=== PATIENT | male | born 1945 | race Caucasian/White ===

== ENCOUNTER → 2017-12-27 12:23 | Outpatient (CLI) | payer OTHER, SELFPAY ==
[2017-12-10 11:51] VITALS: TEMP 36.5
--- NOTE | 2017-12-27 | DI.MRI.S_ITS ---
PROCEDURE: MR LUMBAR SPINE WO CON INDICATIONS: SPINAL STENOSIS TECHNIQUE: Noncontrast sagittal T1 spin echo and T2 fast echo, coronal T2, sagittal STIR, axial T1 and T2 fast spin echo through the lumbar spine. COMPARISON: [facility], CR, XR LUMBAR SPINE WITH OBLIQUES, 12/13/2017, 14:52. FINDINGS: Image quality: Excellent. Alignment and Curvature: 5 lumbar type vertebral bodies are present by plain film. There is mild rightward curvature of the upper lumbar spine. Mild leftward curvature of the lower lumbar spine. Loss of normal lumbar lordosis. Mild grade 1 anterolisthesis of L2 on L3. Mild grade 1 retrolisthesis of L3 on L4 and L5 on S1. Bone Marrow: Marrow is of normal overall signal. No acute vertebral body compression fractures. L4-S1 fusion has been performed, with the posterior rods and pedicle screws, as well as interbody devices at L4-L5 and L5-S1. Spinal Cord: Conus medullaris terminates at the L1-L2 disc space level. Visualized cord demonstrates normal signal and size. Paraspinous Soft Tissues: No paravertebral masses. L1-L2: Disc desiccation and diffuse disc bulge. Bilateral facet and ligamentum flavum hypertrophy. Epidural lipomatosis. Mild canal stenosis. Mild right foraminal stenosis. No left foraminal stenosis. L2-L3: Disc desiccation and diffuse disc bulge. Bilateral facet and ligamentum hypertrophy. Epidural lipomatosis. Severe canal stenosis. Mild left greater than right foraminal stenosis. L3-L4: Disc desiccation and diffuse disc bulge with superimposed small left paracentral protrusion.. Bilateral facet hypertrophy. Moderate canal stenosis. Mild foraminal stenosis bilaterally. There is impingement upon the left L4 nerve root within the lateral recess. L4-L5: Status post fusion. Right hemilaminotomy has been performed. No significant canal stenosis. Mild bilateral foraminal stenosis. L5-S1: Status post fusion. No significant canal stenosis. Mild foraminal stenosis bilaterally. IMPRESSION: 1. L4-S1 fusion. 2. Severe canal stenosis at L2-L3 secondary to disc and facet disease, as well as ligament flavum hypertrophy and epidural lipomatosis. 3. Moderate canal stenosis and left L4 nerve root impingement at the L3-L4 disc space level secondary to disc and facet disease. Dictated by: Katherine Crawford M.D. on 12/27/2017 at 14:53 Approved by: Katherine Crawford M.D. on 12/27/2017 at 14:58
== END ==
PROVIDERS: PCP Internal Medicine; Visit Provider Physical Medicine & Rehabilitation Pain Medicine
DX: M51.36 Other intervertebral disc degeneration, lumbar region (principal); M47.816 Spondylosis without myelopathy or radiculopathy, lumbar region; M48.061 Spinal stenosis, lumbar region without neurogenic claudication; Z98.1 Arthrodesis status
CPT/HCPCS: 72148

== ENCOUNTER 2018-01-19 11:25 | Emergency (ER) | payer OTHER, SELFPAY ==
[2018-01-19 11:33] VITALS: BP 180/87; PULSE 71; RESP 19; TEMP 36.8; O2SAT 95
--- NOTE | 2018-01-19 11:51 | ED.SOB ---
HPI - SOB/Dyspnea General Chief Complaint: Shortness of Breath/Dyspnea Stated Complaint: HIGH BP, SEVERE ALLERGIES, HEART CONDITION Time Seen by Provider: 01/19/18 11:43 Source: patient Mode of arrival: ambulatory Limitations: no limitations History of Present Illness Patient is a 72-year-old male presenting with shortness of breath. He has a history of asthma and coronary artery disease. He said this morning he woke up from 4 a.m. he had some difficulty breathing felt like it was his asthma. He stated to his blood pressure he has systolic to 100 cc called his primary recommended he come to the ED. He says his breathing is much improved. [place] loss of asthma triggers. He has actually been here multiple times for something similar. He no longer has chest pain. He is now complaining of left knee pain. He had arthroscopic cartilage surgery on his left knee he is past due for his pain medication. He otherwise denies any fevers, cough, shortness of breath with exertion increasing leg pain or swelling MD Complaint: shortness of breath and cough Related Data Home Medications Medication Instructions Recorded Confirmed multivitamin [Multiple Vitamins] 1 tab PO QDAY #0 12/21/16 01/19/18 furosemide 20 mg QDAY PRN #0 08/11/17 01/19/18 aspirin 325 mg PO QDAY #0 11/03/17 01/19/18 fluticasone 1 spray INTRANASAL QDAY #0 11/03/17 01/19/18 loratadine [Claritin Liqui-Gel] 10 mg PO QDAY PRN #0 11/03/17 01/19/18 metoprolol succinate 0.5 tab PO BID #0 11/03/17 01/19/18 acetaminophen-codeine 1 tab PO Q6H PRN 12/10/17 01/19/18 lorazepam 1 mg PO TID PRN 12/10/17 01/19/18 trazodone 4 tab PO QHS 12/10/17 01/19/18 Co Q-10 1 cap PO DAILY 01/19/18 01/19/18 krill oil 1 dose PO DAILY 01/19/18 01/19/18 Previous Rx's Medication Instructions Recorded levalbuterol tartrate [Xopenex HFA] 2 puff INHALATION Q4-6H PRN #15 05/04/18 gram Allergies Allergy/AdvReac Type Severity Reaction Status Date / Time celecoxib [CELECOXIB] Allergy Mild SWELLING Verified 01/19/18 11:33 latex [LATEX] Allergy Mild RASH Verified 01/19/18 11:33 W/EXTENDED EXPOSURE morphine [MORPHINE] Allergy Mild Verified 01/19/18 11:33 Sulfa (Sulfonamide Allergy Mild RASH Verified 01/19/18 11:33 Antibiotics) [SULFA (SULFONAMIDE ANTIBIOTICS)] varenicline [VARENICLINE] Allergy Unknown Verified 01/19/18 11:33 oxycodone [OXYCODONE] AdvReac Severe HX Verified 01/19/18 11:33 ADSICTION, PT WANTS TO AVOID tramadol [TRAMADOL] AdvReac Severe HX Verified 01/19/18 11:33 ADDICTION, DOES NOT WANT TO TAKE buprenorphine [BUPRENORPHINE] AdvReac Mild NAUSEA, Verified 01/19/18 11:33 DIZZINESS Cizkfqw-[id number]-Vxp Reductase AdvReac Mild WEAK Verified 01/19/18 11:33 Inhibitor MUSCLES [[id number] REDUCTASE INHIBITOR] clonidine [CLONIDINE] AdvReac Unknown NO Verified 01/19/18 11:33 ALLERGY, DO NOT USE R/T BETA SVETLANA hyoscyamine [HYOSCYAMINE] AdvReac Unknown PARANOIA, Verified 01/19/18 11:33 LEF JERKING, ANXIETY, NAUSEA W/I MINUTES Review of Systems Review of Systems All systems reviewed & are unremarkable except as noted in HPI and below Constitutional Denies chills, Denies fever(s), Denies lethargy and Denies weakness Cardiovascular Denies chest pain, Denies irregular heart rhythm, Denies lightheadedness, Denies palpitations and Denies orthopnea Respiratory Reports as per HPI Gastrointestinal Gastrointestinal: Denies abdominal pain, Denies change in bowel habits, Denies diarrhea, Denies nausea and Denies vomiting Musculoskeletal Reports as per HPI Integumentary/Breasts Denies pruritus, Denies erythema, Denies rash and Denies wounds Neurologic Denies weakness Endocrine Denies palpitations PFSH Medical History COPD (chronic obstructive pulmonary disease) (Acute) Coronary artery disease (Acute) Exam Initial Vital Signs Initial Vital Signs: Vital Signs Temperature 98.2 F 01/19/18 11:33 Pulse Rate 71 01/19/18 11:33 Respiratory Rate 19 01/19/18 11:33 Blood Pressure 180/87 H 01/19/18 11:33 Pulse Oximetry 95 01/19/18 11:33 Const General: cooperative and well developed Nutritional Appearance: well nourished Orientation: alert, awake, oriented x3 and not confused HENIN Head: normal to inspection and normocephalic Ears: hearing grossly normal bilaterally Eyes Pupils: PERRL EOM: EOM intact bilaterally Resp Effort & Inspection: normal respiratory effort, able to speak in complete sentences, no respiratory distress and no use of accessory muscles Auscultation: clear to auscultation bilaterally, no rales, no rhonchi and no wheezes Cardio Rate: regular rate Rhythm: regular rhythm Heart Sounds: no click, no gallops, no murmurs and no rubs Pulses: normal peripheral pulses GI Inspection: non-distended Palpation: soft, no hepatosplenomegaly, No guarding, No pulsatile mass and No tender Auscultation: normal bowel sounds Neuro General: alert, oriented x3, gait normal and no focal motor deficits Speech: speech normal Course Orders Ordered: ED Orders 01/19/18 11:43 EKG-12 Lead Stat 01/19/18 12:22 Consult to Respiratory Therapy Evaluate & Treat XR chest 2V Stat EKG-12 Lead Stat 01/19/18 13:10 Complete Blood Count AUTO DIFF Stat Comprehensive Metabolic Panel Stat Troponin with CK Cardiac Panel Stat Discontinued Medications Acetaminophen (Tylenol) 650 mg PO NOW ONE Stop: 01/19/18 12:23 Last Admin: 01/19/18 13:04 Dose: Not Given Albuterol/Ipratropium (Duoneb) 3 ml INH NOW ONE Stop: 01/19/18 12:23 Last Admin: 01/19/18 13:04 Dose: Not Given Vital Signs - 8 hr 01/19/18 11:33 01/19/18 12:00 01/19/18 13:06 Temperature 98.2 F Pulse Rate 71 72 67 Respiratory Rate 19 28 H 18 Blood Pressure 180/87 H Blood Pressure [Left Arm] 158/70 H 161/90 H Pulse Oximetry 95 95 96 MDM - SOB/Dyspnea Lab Data Result diagrams: 01/19/18 13:10 01/19/18 13:10 Lab Results 01/19/18 01/19/18 Range/Units 13:10 13:10 WBC 7.2 (4.5-11.0) X10^3/uL RBC 4.34 L (4.5-5.9) X10^6/uL Hgb 13.7 (13.5-17.5) g/dL Hct 40.0 L (41-53) % MCV 92.1 (80-100) fL MCH 31.6 (26-34) PG MCHC 34.3 (30-36) % RDW 13.4 (11.6-14.8) % Plt Count 196 (150-400) X10^3/uL Neut % (Auto) 67.8 (50-75) % Lymph % (Auto) 18.9 L (25-40) % Cook % (Auto) 11.4 (3-14) % Eos % (Auto) 1.2 L (2-4) % Baso % (Auto) 0.7 (0-2) % Neut # (Auto) 4900 (4494-0749) /uL Sodium 143 (137-145) mmol/L Potassium 3.6 (3.4-5.1) mmol/L Chloride 98 (98-107) mmol/L Carbon Dioxide 31 (22-32) mmol/L BUN 13 (9-20) mg/dL Creatinine 0.80 (0.66-1.25) mg/dL Estimated GFR > 60.0 (>60) mL/min BUN/Creatinine Ratio 16.3 (6-22) Glucose 108 (80-110) mg/dL Calcium 9.3 (8.4-10.2) mg/dL Total Bilirubin 0.8 (0.2-1.3) mg/dL AST 40 (17-59) IU/L ALT 38 (21-72) IU/L Alkaline Phosphatase 62 (38-126) U/L Total Creatine Kinase 177 H (55-170) U/L CK-MB (CK-2) 2.07 (<2.37) ng/mL CK-MB (CK-2) Rel Index 1.2 L (1.5-5.0) % Troponin I < 0.012 (0.01-0.034) ng/mL Total Protein 7.4 (6.3-8.2) g/dL Albumin 4.3 (3.5-5.0) g/dL Globulin 3.1 (1.7-4.1) g/dL Albumin/Globulin Ratio 1.4 (1.0-2.8) Imaging Data Chest x-ray: Radiologist's impression: PROCEDURE: XR CHEST 2V INDICATIONS: 72 year-old male with chest pain and shortness of breath. TECHNIQUE: 2 views of the chest were acquired. COMPARISON: [facility], , XR CHEST 2V, 12/10/2017, 8:13. [facility], , CHEST 1 VIEW, 10/12/2017, 11:42. [facility], , CHEST 2 VIEW, 09/09/2017, 10:48. FINDINGS: Surgical changes and devices: Patient is status post median sternotomy and cervical spine fixation. Left hilar surgical clips are again noted. Lungs and pleura: No pleural effusions or pneumothorax. Lungs are clear. Mediastinum: Mediastinal contours are normal. Heart size is upper normal. Bones and chest wall: No suspicious bony abnormalities. Soft tissues appear unremarkable. IMPRESSION: No acute cardiopulmonary disease. Dictated by: Gideon Rodriguez M.D. on 01/19/2018 at 12:58 ECG Data Attestation: I personally reviewed and interpreted this ECG as follows: Prior ECG tracings: available for review Interpretation: Normal sinus rhythm rate [address] changes similar to previous EKG MDM Narrative Medical decision making narrative: Patient now refusing all albuterol. He is speaking full sentences and appears in no respiratory distress. He says he no longer needs an albuterol treatment. He has been here many times for the same. He is agreeable to blood work. EKG and blood work are within normal limits. He feels better and would like to go home. He is only here because his primary care physician told him to come in his blood pressure is elevated. His blood pressure is no longer elevated and feels better. No sign of end-organ damage. Discharge Plan Departure Patient Disposition: Home, Self-Care Clinical Impression: Atypical chest pain Discharge Date/Time: 01/19/18 13:46 Interventions: ED Discharge Assessment Last Done: 01/19/18 13:44 Instructions: DI for Atypical Chest Pain Activity Restrictions/Additional Instructions: *You have been diagnosed with atypical chest *Continue to take medications as directed *Follow up with your primary care provider in 2-3 days *Return to ER if you should have any new, worsening or concerning symptoms Prescriptions: No Action multivitamin [Multiple Vitamins] 1 EACH tablet 1 tab PO QDAY Qty: 0 RF: 0 furosemide 20 MG tablet 20 mg QDAY PRN (Reason: Edema) Qty: 0 RF: 0 metoprolol succinate 200 MG tablet extended release 24 hr 0.5 tab PO BID Qty: 0 RF: 0 aspirin 325 MG tablet,delayed release (DR/EC) 325 mg PO QDAY Qty: 0 RF: 0 fluticasone 16 GM spray,suspension 1 spray Intranasal QDAY Qty: 0 RF: 0 loratadine [Claritin Liqui-Gel] 10 MG capsule 10 mg PO QDAY PRN (Reason: Allergy Symptoms) Qty: 0 RF: 0 acetaminophen-codeine 300-30 mg tablet 1 tab PO Q6H PRN (Reason: Pain) RF: 0 lorazepam 1 mg tablet 1 mg PO TID PRN (Reason: Anxiety) RF: 0 trazodone 100 mg tablet 4 tab PO QHS RF: 0 levalbuterol tartrate [Xopenex HFA] 45 mcg/actuation HFA aerosol inhaler 2 puff INHALATION Q4-6H PRN (Reason: shortness of breath) Qty: 15 RF: 0 Co Q-10 1 cap PO DAILY RF: 0 krill oil 1 dose PO DAILY RF: 0
[2018-01-19 12:00] VITALS: BP 158/70; PULSE 72; RESP 28; O2SAT 95
--- NOTE | 2018-01-19 12:03 | PC.NURSE ---
PT refuses to sit on stretcher at this time. Sits in chair.
--- NOTE | 2018-01-19 12:22 | DI.RAD.S_ITS ---
PROCEDURE: XR CHEST 2V INDICATIONS: 72 year-old male with chest pain and shortness of breath. TECHNIQUE: 2 views of the chest were acquired. COMPARISON: [facility], , XR CHEST 2V, 12/10/2017, 8:13. [facility], , CHEST 1 VIEW, 10/12/2017, 11:42. [facility], , CHEST 2 VIEW, 09/09/2017, 10:48. FINDINGS: Surgical changes and devices: Patient is status post median sternotomy and cervical spine fixation. Left hilar surgical clips are again noted. Lungs and pleura: No pleural effusions or pneumothorax. Lungs are clear. Mediastinum: Mediastinal contours are normal. Heart size is upper normal. Bones and chest wall: No suspicious bony abnormalities. Soft tissues appear unremarkable. IMPRESSION: No acute cardiopulmonary disease. Dictated by: Gideon Rodriguez M.D. on 01/19/2018 at 12:58 Approved by: Gideon Rodriguez M.D. on 01/19/2018 at 12:59
[2018-01-19 13:06] VITALS: BP 161/90; PULSE 67; RESP 18; O2SAT 96
[2018-01-19 13:14] LABS: Add Manual Diff / Slide Review NO; Basophils Percent Auto 0.7 % (0-2); Eosinophils Percent Auto 1.2 % (2-4); Hemoglobin 13.7 g/dL (13.5-17.5); Lymphocytes Percent Auto 18.9 % (25-40); Mean Corpuscular HGB Conc 34.3 % (30-36); Mean Corpuscular Hemoglobin 31.6 PG (26-34); Mean Corpuscular Volume 92.1 fL (80-100); Monocytes Percent Auto 11.4 % (3-14); Neutrophils Absolute Auto 4900 /uL (3000-5900); Neutrophils Percent Auto 67.8 % (50-75); Platelet Count 196 X10^3/uL (150-400); Red Blood Cell Count 4.34 X10^6/uL (4.5-5.9); Red Cell Distribution Width 13.4 % (11.6-14.8); White Blood Cell Count 7.2 X10^3/uL (4.5-11.0)
[2018-01-19 13:21] LABS: Alanine Aminotransferase 38 IU/L (21-72); Albumin 4.3 g/dL (3.5-5.0); Albumin Globulin Ratio 1.4 (1.0-2.8); Alkaline Phosphatase 62 U/L (38-126); Aspartate Aminotransferase 40 IU/L (17-59); BUN Creatinine Ratio 16.3 (6-22); Bilirubin Total 0.8 mg/dL (0.2-1.3); Blood Urea Nitrogen 13 mg/dL (9-20); Calcium 9.3 mg/dL (8.4-10.2); Carbon Dioxide 31 mmol/L (22-32); Chloride 98 mmol/L (98-107); Creatine Kinase 177 U/L (55-170); Estimated Glomerular Filt Rate > 60.0 mL/min (>60); Globulin 3.1 g/dL (1.7-4.1); Glucose 108 mg/dL (80-110); Potassium 3.6 mmol/L (3.4-5.1); Sodium 143 mmol/L (137-145); Total Protein 7.4 g/dL (6.3-8.2)
[2018-01-19 13:33] LABS: Troponin I < 0.012 ng/mL (0.01-0.034)
[2018-01-19 13:37] LABS: CKMB % Relative Index 1.2 % (1.5-5.0); Creatine Kinase MB 2.07 ng/mL (<2.37); HEMOLYSIS 35 (0-50)
== END 2018-01-19 13:46 | disposition home or self-care (01) ==
PROVIDERS: Emergency Provider Emergency Medicine
DX: R07.89 Other chest pain (principal)
CPT/HCPCS: 71046; 80053; 82550; 82553; 84484; 85025; 93005; 93041; 99283; 99285

== ENCOUNTER 2018-06-23 09:35 | Emergency (ER) | payer OTHER, SELFPAY ==
[2018-06-23 09:40] VITALS: BP 155/75; PULSE 73; RESP 19; TEMP 36.4; O2SAT 96; BMI 29.5
[2018-06-23] MEDS: LEVALBUTEROL 1.25 MG/0.5 ML NEB INH ×2 (09:58→10:13)
--- NOTE | 2018-06-23 09:58 | DI.RAD.S_ITS ---
PROCEDURE: XR CHEST 2V INDICATIONS: short of breath chest pain TECHNIQUE: 2 views of the chest were acquired. COMPARISON: [facility], , XR CHEST 2V, 01/19/2018, 12:25. FINDINGS: Surgical changes and devices: CABG postsurgical changes in spine fixation hardware is stable. Lungs and pleura: No pleural effusions or pneumothorax. Lungs are clear. Mediastinum: Mediastinal contours are normal. Heart size is normal. Bones and chest wall: No suspicious bony abnormalities. Soft tissues appear unremarkable. IMPRESSION: No acute cardiopulmonary disease process. Dictated by: Rubia Garrison MD, PhD on 06/23/2018 at 10:17 Approved by: Rubia Garrison MD, PhD on 06/23/2018 at 10:18
[2018-06-23 09:59] VITALS: PULSE 70; RESP 23; O2SAT 97
--- NOTE | 2018-06-23 10:00 | ED.SOB ---
HPI - SOB/Dyspnea General Chief Complaint: Shortness of Breath/Dyspnea Stated Complaint: WHEZZING , ASTHMA Time Seen by Provider: 06/23/18 09:46 Source: patient Mode of arrival: ambulatory Limitations: no limitations History of Present Illness Patient is a 73-year-old male who presents with shortness of breath and left-sided chest pain. He had an achalasia procedure done at [facility] on June 08. He also has a history of coronary artery disease and asthma. He said last night he woke up coughing quite badly he took his the Xopenex inhaler with spacer it did not help, And he also ran out of it. He coughed up clear sputum. He is is having pain epigastric where the procedure was done. He says is not any worse than it was it has been. He is difficult to get information out of. His is concerned because he was supposed to be on a soft diet but has been eating hamburgers and pizza. He states he cannot take albuterol healing take Xopenex. MD Complaint: shortness of breath Related Data Home Medications Medication Instructions Recorded Confirmed multivitamin [Multiple Vitamins] 1 tab PO QDAY #0 12/21/16 01/19/18 furosemide 20 mg QDAY PRN #0 08/11/17 01/19/18 aspirin 325 mg PO QDAY #0 11/03/17 01/19/18 fluticasone 1 spray INTRANASAL QDAY #0 11/03/17 01/19/18 loratadine [Claritin Liqui-Gel] 10 mg PO QDAY PRN #0 11/03/17 01/19/18 metoprolol succinate 0.5 tab PO BID #0 11/03/17 01/19/18 acetaminophen-codeine 1 tab PO Q6H PRN 12/10/17 01/19/18 lorazepam 1 mg PO TID PRN 12/10/17 01/19/18 trazodone 4 tab PO QHS 12/10/17 01/19/18 Co Q-10 1 cap PO DAILY 01/19/18 01/19/18 krill oil 1 dose PO DAILY 01/19/18 01/19/18 Previous Rx's Medication Instructions Recorded levalbuterol tartrate [Xopenex HFA] 2 puff INHALATION Q4-6H PRN #15 12/10/17 gram levalbuterol tartrate [Xopenex HFA] 1 puff INHALATION Q4-6H PRN #15 06/23/18 gram prednisone 50 mg PO DAILY #4 tab 06/23/18 Allergies Allergy/AdvReac Type Severity Reaction Status Date / Time celecoxib [CELECOXIB] Allergy Mild SWELLING Verified 01/19/18 11:33 latex [LATEX] Allergy Mild RASH Verified 01/19/18 11:33 W/EXTENDED EXPOSURE morphine [MORPHINE] Allergy Mild Verified 01/19/18 11:33 Sulfa (Sulfonamide Allergy Mild RASH Verified 01/19/18 11:33 Antibiotics) [SULFA (SULFONAMIDE ANTIBIOTICS)] varenicline [VARENICLINE] Allergy Unknown Verified 01/19/18 11:33 oxycodone [OXYCODONE] AdvReac Severe HX Verified 01/19/18 11:33 ADSICTION, PT WANTS TO AVOID tramadol [TRAMADOL] AdvReac Severe HX Verified 01/19/18 11:33 ADDICTION, DOES NOT WANT TO TAKE buprenorphine [BUPRENORPHINE] AdvReac Mild NAUSEA, Verified 01/19/18 11:33 DIZZINESS Frqugun-Qjp-Zcc Reductase AdvReac Mild WEAK Verified 01/19/18 11:33 Inhibitor MUSCLES [[id number] REDUCTASE INHIBITOR] clonidine [CLONIDINE] AdvReac Unknown NO Verified 01/19/18 11:33 ALLERGY, DO NOT USE R/T BETA SVETLANA hyoscyamine [HYOSCYAMINE] AdvReac Unknown PARANOIA, Verified 01/19/18 11:33 LEF JERKING, ANXIETY, NAUSEA W/I MINUTES Review of Systems Review of Systems All systems reviewed & are unremarkable except as noted in HPI and below Constitutional Denies chills, Denies fever(s), Denies lethargy and Denies weakness ENT Ears, Nose, Mouth, and Throat: Reports as per HPI Cardiovascular Reports as per HPI and Denies dyspnea on exertion Respiratory Reports as per HPI, Reports cough, Denies dyspnea on exertion and Reports wheezing Gastrointestinal Gastrointestinal: Denies abdominal pain, Denies change in bowel habits, Denies diarrhea, Denies nausea and Denies vomiting Musculoskeletal Denies back pain, Denies muscle weakness, Denies numbness and Denies tingling Integumentary/Breasts Denies pruritus, Denies erythema, Denies rash and Denies wounds Neurologic Denies numbness, Denies tingling and Denies weakness Allergic/Immunologic Reports wheezing PFSH Medical History COPD (chronic obstructive pulmonary disease) (Acute) Coronary artery disease (Acute) Social History Smoking Status: Former smoker Exam Initial Vital Signs Initial Vital Signs: Vital Signs Temperature 97.6 F 06/23/18 09:40 Pulse Rate 73 06/23/18 09:40 Respiratory Rate 19 06/23/18 09:40 Blood Pressure 155/75 H 06/23/18 09:40 Pulse Oximetry 96 06/23/18 09:40 Const General: cooperative and comfortable Orientation: alert, awake and oriented x3 Eyes General: appearance normal, both eyes and all related structures Neck Neck: normal visual inspection and full ROM Chest Chest: normal inspection of the chest Resp Effort & Inspection: normal respiratory effort and able to speak in complete sentences Auscultation: wheezes expiratory wheezes and scattered wheezes Cardio Rhythm: regular rhythm Heart Sounds: S1 normal and S2 normal GI Palpation: soft, No firm, No pulsatile mass, No rigid and tender (Mild epigastric pain) Skin General: no rashes or lesions noted, No jaundice and No petechiae Neuro General: alert, awake, oriented x3 and deep tendon reflexes 2+ bilaterally Gait: normal gait Course Orders Ordered: ED Orders 06/23/18 10:05 B Type Natriuretic Peptide Stat Complete Blood Count AUTO DIFF Stat Comprehensive Metabolic Panel Stat Lipase Stat Magnesium Stat Partial Thromboplastin Time Stat Prothrombin Time INR Stat Troponin & CK Cardiac Panel Stat 06/23/18 11:31 CT abdomen pelvis w con Stat Discontinued Medications Levalbuterol HCl (Xopenex) 1.25 mg INH NOW PRN PRN Reason: Wheezing Stop: 06/26/18 09:55 Last Admin: 06/23/18 10:13 Dose: 1.25 mg Admin: 06/23/18 09:58 Dose: 1.25 mg Methylprednisolone (Solu-Medrol 125 Mg Vial) 125 mg IV NOW ONE Stop: 06/23/18 09:58 Last Admin: 06/23/18 10:19 Dose: 125 mg Vital Signs - 8 hr 06/23/18 12:00 06/23/18 12:13 Pulse Rate 66 66 Respiratory Rate 21 20 Blood Pressure 181/81 H Blood Pressure [Right Arm] 183/83 H Pulse Oximetry 96 95 MDM - SOB/Dyspnea Lab Data Attestation: I reviewed the patient's lab results. Result diagrams: 06/23/18 10:05 06/23/18 10:05 Lab Results 06/23/18 06/23/18 06/23/18 Range/Units 10:05 10:05 10:05 WBC 8.7 (4.5-11.0) X10^3/uL RBC 4.44 L (4.5-5.9) X10^6/uL Hgb 13.7 (13.5-17.5) g/dL Hct 40.5 L (41-53) % MCV 91.2 (80-100) fL MCH 30.8 (26-34) PG MCHC 33.7 (30-36) % RDW 13.9 (11.6-14.8) % Plt Count 241 (150-400) X10^3/uL Neut % (Auto) 67.7 (50-75) % Lymph % (Auto) 15.3 L (25-40) % Hopkins % (Auto) 7.7 (3-14) % Eos % (Auto) 8.2 H (2-4) % Baso % (Auto) 1.1 (0-2) % Neut # (Auto) 5900 (8313-7389) /uL PT 11.5 (10.1-12.7) SECONDS INR 1.1 (0.9-1.3) APTT 29 (26.4-36.2) SECONDS Sodium (137-145) mmol/L Potassium (3.4-5.1) mmol/L Chloride (98-107) mmol/L Carbon Dioxide (22-32) mmol/L BUN (9-20) mg/dL Creatinine (0.66-1.25) mg/dL Estimated GFR (>60) mL/min BUN/Creatinine Ratio (6-22) Glucose (80-110) mg/dL Calcium (8.4-10.2) mg/dL Magnesium Cancelled Total Bilirubin (0.2-1.3) mg/dL AST (17-59) IU/L ALT (21-72) IU/L Alkaline Phosphatase (38-126) U/L Total Creatine Kinase Cancelled CK-MB (CK-2) Cancelled CK-MB (CK-2) Rel Index Cancelled Troponin I Cancelled B-Natriuretic Peptide 145.0 H (<100) Total Protein (6.3-8.2) g/dL Albumin (3.5-5.0) g/dL Globulin (1.7-4.1) g/dL Albumin/Globulin Ratio (1.0-2.8) Lipase (23-300) U/L 06/23/18 06/23/18 Range/Units 10:05 10:05 WBC (4.5-11.0) X10^3/uL RBC (4.5-5.9) X10^6/uL Hgb (13.5-17.5) g/dL Hct (41-53) % MCV (80-100) fL MCH (26-34) PG MCHC (30-36) % RDW (11.6-14.8) % Plt Count (150-400) X10^3/uL Neut % (Auto) (50-75) % Lymph % (Auto) (25-40) % Hopkins % (Auto) (3-14) % Eos % (Auto) (2-4) % Baso % (Auto) (0-2) % Neut # (Auto) (5075-4244) /uL PT (10.1-12.7) SECONDS INR (0.9-1.3) APTT (26.4-36.2) SECONDS Sodium 139 (137-145) mmol/L Potassium 4.4 (3.4-5.1) mmol/L Chloride 100 (98-107) mmol/L Carbon Dioxide 28 (22-32) mmol/L BUN 19 (9-20) mg/dL Creatinine 0.80 (0.66-1.25) mg/dL Estimated GFR > 60.0 (>60) mL/min BUN/Creatinine Ratio 23.8 H (6-22) Glucose 121 H (80-110) mg/dL Calcium 9.1 (8.4-10.2) mg/dL Magnesium 2.1 Total Bilirubin 0.6 (0.2-1.3) mg/dL AST 33 (17-59) IU/L ALT 33 (21-72) IU/L Alkaline Phosphatase 55 (38-126) U/L Total Creatine Kinase 133 CK-MB (CK-2) 3.00 H CK-MB (CK-2) Rel Index 2.3 Troponin I < 0.012 B-Natriuretic Peptide (<100) Total Protein 7.0 (6.3-8.2) g/dL Albumin 4.3 (3.5-5.0) g/dL Globulin 2.7 (1.7-4.1) g/dL Albumin/Globulin Ratio 1.6 (1.0-2.8) Lipase 90 Cancelled (23-300) U/L Imaging Data Chest x-ray: Radiologist's impression: PROCEDURE: XR CHEST 2V INDICATIONS: short of breath chest pain TECHNIQUE: 2 views of the chest were acquired. COMPARISON: [facility], XR CHEST 2V, 01/19/2018, 12:25. FINDINGS: Surgical changes and devices: CABG postsurgical changes in spine fixation hardware is stable. Lungs and pleura: No pleural effusions or pneumothorax. Lungs are clear. Mediastinum: Mediastinal contours are normal. Heart size is normal. Bones and chest wall: No suspicious bony abnormalities. Soft tissues appear unremarkable. IMPRESSION: No acute cardiopulmonary disease process. Dictated by: Rubia Garrison MD, PhD on 06/23/2018 at 10:17 CT scan - abdomen: Radiologist's impression: PROCEDURE: CT ABDOMEN PELVIS W CON INDICATIONS: ab pain 06/08/18 achalasia correction TECHNIQUE: After the administration of intravenous contrast, 5 mm thick sections acquired from the diaphragm to the symphysis. 5 mm coronal and sagittal reformats were acquired. For radiation dose reduction, the following was used: automated exposure control, adjustment of mA and/or kV according to patient size. COMPARISON: [facility], L-SPINE 2-3 VIEWS, 02/04/2015, 14:29. FINDINGS: Image quality: There is streak artifact seen through the pelvis. ABDOMEN: Lung bases: Lung bases are clear. Heart size is normal. Sternotomy wires are seen. There is thickening of the distal esophageal rosenbaum. No free air or abscess collection can be seen. Solid organs: Liver is normal in size and enhancement. Diffuse fatty liver infiltration is noted. Gallbladder has been removed. Biliary system is non dilated. Pancreas enhances normally. Spleen is normal in size and enhancement. No adrenal nodules. Kidneys demonstrate normal size and enhancement, without hydronephrosis. Peritoneum and bowel: Mild to moderate wall thickening can be seen involving the sigmoid colon, with prominent diverticula formation. Mild surrounding inflammatory changes are seen. No free fluid or air. Bowel loops otherwise demonstrate normal wall thickness and caliber. Incidental note is made of a normal-appearing appendix. Nodes and vessels: No retroperitoneal or mesenteric adenopathy by size criteria. Aorta and inferior vena cava are normal in size. Atherosclerotic calcification is noted. Miscellaneous: No ventral hernias. PELVIS: Genitourinary: Bladder wall thickness is normal. Miscellaneous: No inguinal hernias or adenopathy. Right pelvis clips can be seen. Right groin laparoscopic anchors are seen. Bones: No suspicious bony lesions. No vertebral body compression fractures. Lumbosacral fixation hardware is seen. Bilateral hip arthroplasty hardware is seen, with associated streak artifact. S-shaped scoliotic curvature is seen. IMPRESSION: Thickening of the distal esophageal rosenbaum can be seen, which is consistent with the given history. No free air or abscess collection can be seen. Mild to moderate sigmoid diverticulitis. No findings of perforation or abscess can be seen. Incidental note is made of: Prior sternotomy Cholecystectomy Fatty liver infiltration Normal appendix Right groin hernia repair Right pelvic clips Lumbosacral fixation hardware Bilateral hip arthroplasty hardware, with associated streak artifact Dictated by: Arnie Cook M.D. on 06/23/2018 at 10:54 ECG Data Attestation: I personally reviewed and interpreted this ECG as follows: Prior ECG tracings: available for review Interpretation: normal sinus rhythm rate [address] changes OR interval 183 QRS 82 QTC 484, PVC noted. Q-wave noted in lead 3 which is unchanged from previous EKGs. [facility] Narrative Medical decision making narrative: 11:15 a.m. now patient complaining of nausea and abdominal pain. Says that he overall was feeling achy and tired. He did have chest pain and shortness of breath his breathing is better chest pain is better. He is tender in his umbilical area. abdominal CT is negative. He overall is feeling better. His he has no shortness of breath. Possible COPD exacerbation. His EKG chest x-ray and troponin are negative. Discharge Plan Departure Patient Disposition: Home Clinical Impression: Atypical chest pain Discharge Date/Time: 06/23/18 12:14 Interventions: ED Discharge Assessment Last Done: 06/23/18 12:13 Instructions: DI for Atypical Chest Pain Activity Restrictions/Additional Instructions: *You have been diagnosed with atypical chest *What to do: Blood work, chest x-ray abdominal CT are reassuring no abnormality is found. *Continue to take medications as directed: FAX TO [facility] [place] -prednisone 50 mg once a day -Xopenex every 4 hr if needed for shortness of breath *Follow up with your primary care provider in 2-3 days *Return to ER if you should have chest pain, shortness of breath, abdominal pain any new, worsening or concerning symptoms Prescriptions: New prednisone 50 mg tablet 50 mg PO DAILY Qty: 4 RF: 0 levalbuterol tartrate [Xopenex HFA] 45 mcg/actuation HFA aerosol inhaler 1 puff INHALATION Q4-6H PRN (Reason: shortness of breath or wheezing) Qty: 15 RF: 0 No Action multivitamin [Multiple Vitamins] 1 EACH tablet 1 tab PO QDAY Qty: 0 RF: 0 furosemide 20 MG tablet 20 mg QDAY PRN (Reason: Edema) Qty: 0 RF: 0 metoprolol succinate 200 MG tablet extended release 24 hr 0.5 tab PO BID Qty: 0 RF: 0 aspirin 325 MG tablet,delayed release (DR/EC) 325 mg PO QDAY Qty: 0 RF: 0 fluticasone 16 GM spray,suspension 1 spray Intranasal QDAY Qty: 0 RF: 0 loratadine [Claritin Liqui-Gel] 10 MG capsule 10 mg PO QDAY PRN (Reason: Allergy Symptoms) Qty: 0 RF: 0 acetaminophen-codeine 300-30 mg tablet 1 tab PO Q6H PRN (Reason: Pain) RF: 0 lorazepam 1 mg tablet 1 mg PO TID PRN (Reason: Anxiety) RF: 0 trazodone 100 mg tablet 4 tab PO QHS RF: 0 levalbuterol tartrate [Xopenex HFA] 45 mcg/actuation HFA aerosol inhaler 2 puff INHALATION Q4-6H PRN (Reason: shortness of breath) Qty: 15 RF: 0 Co Q-10 1 cap PO DAILY RF: 0 krill oil 1 dose PO DAILY RF: 0
[2018-06-23 10:18] LABS: Add Manual Diff / Slide Review NO; Basophils Percent Auto 1.1 % (0-2); Eosinophils Percent Auto 8.2 % (2-4); Hematocrit 40.5 % (41-53); Hemoglobin 13.7 g/dL (13.5-17.5); Lymphocytes Percent Auto 15.3 % (25-40); Mean Corpuscular HGB Conc 33.7 % (30-36); Mean Corpuscular Hemoglobin 30.8 PG (26-34); Mean Corpuscular Volume 91.2 fL (80-100); Monocytes Percent Auto 7.7 % (3-14); Neutrophils Absolute Auto 5900 /uL (3000-5900); Neutrophils Percent Auto 67.7 % (50-75); Platelet Count 241 X10^3/uL (150-400); Red Blood Cell Count 4.44 X10^6/uL (4.5-5.9); Red Cell Distribution Width 13.9 % (11.6-14.8); White Blood Cell Count 8.7 X10^3/uL (4.5-11.0)
[2018-06-23] MEDS: methylPREDNISolone 125 MG/2 ML VIAL IV (10:19)
[2018-06-23 10:24] LABS: INR 1.1 (0.9-1.3); Prothrombin Time 11.5 SECONDS (10.1-12.7)
[2018-06-23 10:27] LABS: PTT Partial Thromboplastin Tim 29 SECONDS (26.4-36.2)
[2018-06-23 10:33] LABS: Alanine Aminotransferase 33 IU/L (21-72); Albumin 4.3 g/dL (3.5-5.0); Albumin Globulin Ratio 1.6 (1.0-2.8); Alkaline Phosphatase 55 U/L (38-126); Aspartate Aminotransferase 33 IU/L (17-59); BUN Creatinine Ratio 23.8 (6-22); Bilirubin Total 0.6 mg/dL (0.2-1.3); Blood Urea Nitrogen 19 mg/dL (9-20); Calcium 9.1 mg/dL (8.4-10.2); Carbon Dioxide 28 mmol/L (22-32); Chloride 100 mmol/L (98-107); Creatine Kinase 133 U/L (55-170); Estimated Glomerular Filt Rate > 60.0 mL/min (>60); Globulin 2.7 g/dL (1.7-4.1); Glucose 121 mg/dL (80-110); HEMOLYSIS < 15 (0-50); Lipase 90 U/L (23-300); Magnesium 2.1 mg/dL (1.6-2.3); Potassium 4.4 mmol/L (3.4-5.1); Sodium 139 mmol/L (137-145)
[2018-06-23 10:45] LABS: Troponin I < 0.012 ng/mL (0.01-0.034)
[2018-06-23 10:48] LABS: CKMB % Relative Index 2.3 % (1.5-5.0)
--- NOTE | 2018-06-23 11:31 | DI.CT.S_ITS ---
PROCEDURE: CT ABDOMEN PELVIS W CON INDICATIONS: ab pain 06/08/18 achalasia correction TECHNIQUE: After the administration of intravenous contrast, 5 mm thick sections acquired from the diaphragm to the symphysis. 5 mm coronal and sagittal reformats were acquired. For radiation dose reduction, the following was used: automated exposure control, adjustment of mA and/or kV according to patient size. COMPARISON: [facility], , L-SPINE 2-3 VIEWS, 02/04/2015, 14:29. FINDINGS: Image quality: There is streak artifact seen through the pelvis. ABDOMEN: Lung bases: Lung bases are clear. Heart size is normal. Sternotomy wires are seen. There is thickening of the distal esophageal rosenbaum. No free air or abscess collection can be seen. Solid organs: Liver is normal in size and enhancement. Diffuse fatty liver infiltration is noted. Gallbladder has been removed. Biliary system is non dilated. Pancreas enhances normally. Spleen is normal in size and enhancement. No adrenal nodules. Kidneys demonstrate normal size and enhancement, without hydronephrosis. Peritoneum and bowel: Mild to moderate wall thickening can be seen involving the sigmoid colon, with prominent diverticula formation. Mild surrounding inflammatory changes are seen. No free fluid or air. Bowel loops otherwise demonstrate normal wall thickness and caliber. Incidental note is made of a normal-appearing appendix. Nodes and vessels: No retroperitoneal or mesenteric adenopathy by size criteria. Aorta and inferior vena cava are normal in size. Atherosclerotic calcification is noted. Miscellaneous: No ventral hernias. PELVIS: Genitourinary: Bladder wall thickness is normal. Miscellaneous: No inguinal hernias or adenopathy. Right pelvis clips can be seen. Right groin laparoscopic anchors are seen. Bones: No suspicious bony lesions. No vertebral body compression fractures. Lumbosacral fixation hardware is seen. Bilateral hip arthroplasty hardware is seen, with associated streak artifact. S-shaped scoliotic curvature is seen. IMPRESSION: Thickening of the distal esophageal rosenbaum can be seen, which is consistent with the given history. No free air or abscess collection can be seen. Mild to moderate sigmoid diverticulitis. No findings of perforation or abscess can be seen. Incidental note is made of: Prior sternotomy Cholecystectomy Fatty liver infiltration Normal appendix Right groin hernia repair Right pelvic clips Lumbosacral fixation hardware Bilateral hip arthroplasty hardware, with associated streak artifact Dictated by: Arnie Cook M.D. on 06/23/2018 at 10:54 Approved by: Arnie Cook M.D. on 06/23/2018 at 11:00
[2018-06-23 12:00] VITALS: BP 183/83; PULSE 66; RESP 21; O2SAT 96
[2018-06-23 12:13] VITALS: BP 181/81; PULSE 66; RESP 20; O2SAT 95
--- NOTE | 2018-06-25 15:18 | PC.NURSE ---
pt states he's doing well but had to had to crack the prednisone in half cause its hard on me pt did say he is planning on following up with pcp.
== END 2018-06-23 12:14 | disposition home or self-care (01) ==
PROVIDERS: Emergency Provider Emergency Medicine
DX: R07.89 Other chest pain (principal)
CPT/HCPCS: 36591; 71046; 74177; 80053; 82550; 82553; 83690; 83735; 83880; 84484; 85025; 85610; 85730; 93005; 94640; 96374; 99283; 99285; J2930; J7614; Q9967

== ENCOUNTER → 2018-08-24 10:53 | Outpatient (CLI) | payer OTHER, SELFPAY ==
--- NOTE | 2018-08-26 16:16 | PM.PFT.1 ---
Pulmonary Function Test Referral & Results Date Patient Seen: 08/24/18 Requesting provider: Binu Ac Indication: J45.998 Results: The spirometry demonstrates an FVC of 3.32 L which is 69% of predicted. The FEV1 was measured at 2.55 L which is 72% of predicted. The FEV1/FVC ratio was 77 which is 105% of predicted. Following the administration of bronchodilator there was no appreciable change. Lung volumes show an SVC of 3.33 L which is 67% of predicted. The diffusing capacity was measured at 22.79 which is 62% of predicted. No hemoglobin value was provided, so no correction for potential anemia could be made, if appropriate. The maximum voluntary ventilation was [] Interpretation: This study demonstrates mild to moderate obstructive lung disease without evidence of benefit following bronchodilator There is also [id number] restrictive lung disease There is also mild to moderate reduction in diffusing capacity suggesting element of disease at the capillary alveolar level All this together is consistent with a diagnosis of COPD
== END ==
PROVIDERS: Visit Provider Internal Medicine
DX: J45.998 Other asthma (principal)
CPT/HCPCS: 94060; 94726; 94729

== ENCOUNTER 2018-08-29 09:45 | Emergency (ER) | payer OTHER, SELFPAY ==
[2018-08-29 09:45] VITALS: BP 140/71; PULSE 66; RESP 22; TEMP 36.6; O2SAT 95; BMI 31.1
--- NOTE | 2018-08-29 09:55 | DI.RAD.S_ITS ---
PROCEDURE: XR CHEST 2V INDICATIONS: worsening cough, wheezing TECHNIQUE: 2 views of the chest were acquired. COMPARISON: [facility], CT, CT ABDOMEN PELVIS W CON, 06/23/2018, 11:21. [facility], CR, XR CHEST 2V, 01/19/2018, 12:25. [facility], CR, XR CHEST 2V, 06/23/2018, 10:07. FINDINGS: Surgical changes and devices: Postsurgical changes are redemonstrated in the mediastinum and lower cervical spine. Lungs and pleura: No pleural effusions or pneumothorax. No acute consolidation. There are a few linear opacities redemonstrated in the left base compatible with scarring. Mediastinum: Mediastinal contours are normal. Heart size is normal. Bones and chest wall: No suspicious bony abnormalities. Soft tissues appear unremarkable. IMPRESSION: 1. No definite evidence of pneumonia. Dictated by: Chapincito Rodriguez M.D. on 08/29/2018 at 10:35 Approved by: Chapincito Rodriguez M.D. on 08/29/2018 at 10:38
[2018-08-29] MEDS: LEVALBUTEROL 1.25 MG/0.5 ML NEB INH ×2 (10:03→10:42)
[2018-08-29 10:04] VITALS: PULSE 70; RESP 15; O2SAT 97
[2018-08-29 10:30] LABS: Influenza A and B by PCR Rapid Negative (Negative)
[2018-08-29 10:42] VITALS: PULSE 64; RESP 15; O2SAT 94
[2018-08-29 11:03] VITALS: BP 146/67; PULSE 76; RESP 20; O2SAT 95
[2018-08-29 11:30] VITALS: BP 141/59
[2018-08-29] MEDS: DEXAMETHASONE 10 MG/ML VIAL IM (12:18)
[2018-08-29 12:38] VITALS: BP 142/72; PULSE 80; RESP 18; O2SAT 98
--- NOTE | 2019-02-22 15:50 | ED.SOB ---
HPI - SOB/Dyspnea General Chief Complaint: Shortness of Breath/Dyspnea Stated Complaint: X3 WEEKS COUGHING CONGESTION Time Seen by Provider: 08/29/18 10:05 Source: patient Limitations: no limitations History of Present Illness Late entry of patient record: Patient presented to the emergency department complaining of 3 weeks of shortness of breath and congestion, per nursing note. He has a history of COPD and CHF, for which he takes inhaled beta agonists, furosemide, and isosorbide mononitrate. Related Data Home Medications Medication Instructions Recorded Confirmed multivitamin [Multiple Vitamins] 1 tab PO DAILY #0 12/21/16 11/15/18 furosemide 20 mg DAILY PRN #0 08/11/17 11/15/18 aspirin 325 mg PO BEDTIME #0 11/03/17 11/15/18 fluticasone propionate 1 spray INTRANASAL BID #0 11/03/17 11/15/18 loratadine [Claritin Liqui-Gel] 10 mg PO DAILY #0 11/03/17 11/15/18 acetaminophen-codeine 1 tab PO Q4-6H PRN 12/10/17 11/15/18 trazodone 400 tab PO BEDTIME 12/10/17 11/15/18 Co Q-10 2 cap PO DAILY 01/19/18 11/15/18 krill oil 1 cap PO DAILY 01/19/18 11/15/18 levalbuterol HCl 3 ml INHALATION Q6H PRN 10/17/18 11/15/18 metoprolol tartrate 100 mg PO BID 10/17/18 11/15/18 Spiriva Respimat 1 puff INHALATION DIRECTED 11/15/18 11/15/18 Symbicort 1 puff INHALATION DIRECTED 11/15/18 11/15/18 Previous Rx's Medication Instructions Recorded levalbuterol tartrate [Xopenex HFA] 1 puff INHALATION Q4-6H PRN #15 06/23/18 gram isosorbide mononitrate 30 mg PO DAILY #20 tab 01/08/19 Allergies Allergy/AdvReac Type Severity Reaction Status Date / Time celecoxib [CELECOXIB] Allergy Mild SWELLING Verified 01/19/18 11:33 latex [LATEX] Allergy Mild RASH Verified 01/19/18 11:33 W/EXTENDED EXPOSURE morphine [MORPHINE] Allergy Mild Verified 01/19/18 11:33 Sulfa (Sulfonamide Allergy Mild RASH Verified 01/19/18 11:33 Antibiotics) [SULFA (SULFONAMIDE ANTIBIOTICS)] varenicline [VARENICLINE] Allergy Unknown Verified 01/19/18 11:33 oxycodone [OXYCODONE] AdvReac Severe HX Verified 01/19/18 11:33 ADSICTION, PT WANTS TO AVOID tramadol [TRAMADOL] AdvReac Severe HX Verified 01/19/18 11:33 ADDICTION, DOES NOT WANT TO TAKE buprenorphine [BUPRENORPHINE] AdvReac Mild NAUSEA, Verified 01/19/18 11:33 DIZZINESS [id number] Reductase AdvReac Mild WEAK Verified 01/19/18 11:33 Inhibitor MUSCLES [[id number] REDUCTASE INHIBITOR] clonidine [CLONIDINE] AdvReac Unknown NO Verified 01/19/18 11:33 ALLERGY, DO NOT USE R/T BETA SVETLANA hyoscyamine [HYOSCYAMINE] AdvReac Unknown PARANOIA, Verified 01/19/18 11:33 LEF JERKING, ANXIETY, NAUSEA W/I MINUTES Review of Systems Cardiovascular Reports dyspnea Respiratory Reports dyspnea and Reports wheezing Allergic/Immunologic Reports wheezing PFSH Social History Smoking Status: Former smoker alcohol intake: current substance use type: does not use Exam Initial Vital Signs Initial Vital Signs: Vital Signs Temperature 97.8 F 08/29/18 09:45 Pulse Rate 66 08/29/18 09:45 Respiratory Rate 22 08/29/18 09:45 Blood Pressure 140/71 08/29/18 09:45 Pulse Oximetry 95 08/29/18 09:45 Course Course Narrative: Patient received dexamethasone, Xopenex, and Solu-Medrol in the ED, per record. Orders Ordered: Discontinued Medications Dexamethasone (Decadron) 10 mg IM NOW ONE Stop: 08/29/18 12:16 Last Admin: 08/29/18 12:18 Dose: 10 mg Levalbuterol HCl (Xopenex) 1.25 mg INH NOW ONE Stop: 08/29/18 09:55 Last Admin: 08/29/18 10:03 Dose: 1.25 mg Levalbuterol HCl (Xopenex) 1.25 mg INH NOW PRN PRN Reason: Wheezing Last Admin: 08/29/18 10:42 Dose: 1.25 mg Methylprednisolone (Solu-Medrol 125 Mg Vial) 125 mg IV NOW ONE Stop: 08/29/18 11:17 Last Admin: 08/29/18 12:15 Dose: Not Given MDM - SOB/Dyspnea Medical Records Attestation: I reviewed the patient's medical records. Lab Data Attestation: I reviewed the patient's lab results. Lab Results 08/29/18 Range/Units 09:53 Influenza A & B (PCR) Negative (Negative) Imaging Data Chest x-ray: Radiologist's impression: PROCEDURE: XR CHEST 2V INDICATIONS: worsening cough, wheezing TECHNIQUE: 2 views of the chest were acquired. COMPARISON: [facility], CT, CT ABDOMEN PELVIS W CON, 06/23/2018, 11:21. [facility], CR, XR CHEST 2V, 01/19/2018, 12:25. [facility], CR, XR CHEST 2V, 06/23/2018, 10:07. FINDINGS: Surgical changes and devices: Postsurgical changes are redemonstrated in the mediastinum and lower cervical spine. Lungs and pleura: No pleural effusions or pneumothorax. No acute consolidation. There are a few linear opacities redemonstrated in the left base compatible with scarring. Mediastinum: Mediastinal contours are normal. Heart size is normal. Bones and chest wall: No suspicious bony abnormalities. Soft tissues appear unremarkable. IMPRESSION: 1. No definite evidence of pneumonia. Dictated by: Chapincito Rodriguez M.D. on 08/29/2018 at 10:35 Approved by: Chapincito Rodriguez M.D. on 08/29/2018 at 10:38 Discharge Plan Departure Patient Disposition: Home Clinical Impression: COPD exacerbation Discharge Date/Time: 08/29/18 12:41 Interventions: ED Discharge Assessment Last Done: 08/29/18 12:39 Instructions: DI for Chronic Obstructive Pulmonary Disease Activity Restrictions/Additional Instructions: Your chest x-ray looks good. Your pulmonary function tests indicate you most likely have some degree of COPD. You should continue your inhalers, and you may also take the oral steroids, also, to help with your symptoms. Please follow up with your primary doctor for further intervention for your COPD. Prescriptions: No Action multivitamin [Multiple Vitamins] 1 EACH tablet 1 tab PO DAILY Qty: 0 RF: 0 furosemide 20 MG tablet 20 mg DAILY PRN (Reason: Edema) Qty: 0 RF: 0 aspirin 325 MG tablet,delayed release (DR/EC) 325 mg PO BEDTIME Qty: 0 RF: 0 fluticasone propionate 16 GM spray,suspension 1 spray Intranasal BID Qty: 0 RF: 0 loratadine [Claritin Liqui-Gel] 10 MG capsule 10 mg PO DAILY Qty: 0 RF: 0 Spiriva Respimat 1 puff Inhalation DIRECTED RF: 0 Symbicort 1 puff Inhalation DIRECTED RF: 0 acetaminophen-codeine 300-30 mg tablet 1 tab PO Q4-6H PRN (Reason: Pain) RF: 0 trazodone 100 mg tablet 400 tab PO BEDTIME RF: 0 Co Q-10 2 cap PO DAILY RF: 0 krill oil 1 cap PO DAILY RF: 0 levalbuterol tartrate [Xopenex HFA] 45 mcg/actuation HFA aerosol inhaler 1 puff INHALATION Q4-6H PRN (Reason: shortness of breath or wheezing) Qty: 15 RF: 0 metoprolol tartrate 100 mg tablet 100 mg PO BID RF: 0 levalbuterol HCl 1.25 mg/3 mL solution for nebulization 3 ml Inhalation Q6H PRN (Reason: Shortness Of Breath) RF: 0 isosorbide mononitrate 30 mg tablet extended release 24 hr 30 mg PO DAILY Qty: 20 RF: 0
== END 2018-08-29 12:41 | disposition home or self-care (01) ==
PROVIDERS: Emergency Provider Emergency Medicine
DX: J44.1 Chronic obstructive pulmonary disease with (acute) exacerbation (principal)
CPT/HCPCS: 71046; 87400; 93005; 93010; 94640; 96372; 99283; 99284; J1100; J7614

== ENCOUNTER 2018-10-17 10:55 | Emergency (ER) | payer OTHER, SELFPAY ==
[2018-10-17 12:00] VITALS: BP 156/72; PULSE 75; RESP 16; TEMP 36.6; O2SAT 95
--- NOTE | 2018-10-17 12:28 | DI.RAD.S_ITS ---
PROCEDURE: XR CHEST 2V INDICATIONS: sob, h/o COPD, CHF TECHNIQUE: 2 views of the chest were acquired. COMPARISON: [facility], CR, XR CHEST 2V, 08/29/2018, 10:21. FINDINGS: Surgical changes and devices: Sternotomy wires are again seen. Prior fusion of lower cervical spine is again noted. Lungs and pleura: Lungs are clear. No pleural effusions or pneumothorax. Mediastinum: Mediastinal contours are normal. Heart size is enlarged. Bones and chest wall: No suspicious bony abnormalities. Soft tissues appear unremarkable. IMPRESSION: No acute cardio pulmonary pathology. Dictated by: Reji Starr M.D. on 10/17/2018 at 12:50 Approved by: Reji Starr M.D. on 10/17/2018 at 12:50
--- NOTE | 2018-10-17 12:37 | ED.URI ---
HPI - URI/Sore Throat <Brooke Jensen PA-C - Last Filed: 10/17/18 21:56> General Chief Complaint: Upper Respiratory Symptoms Stated Complaint: Pneumonia/edema Time Seen by Provider: 10/17/18 12:27 Source: patient Mode of arrival: ambulatory Limitations: no limitations History of Present Illness HPI Narrative: This 73-year-old male who has a history of COPD comes in due to worsening dyspnea and wheeze. He states that this ?waxes and wanes?. He thinks the got worse when the cold weather started to improve as there is more pollen in the air, and states he has been getting more wheezy and raspy. He this is not necessarily worse with exertion. He states his Xopenex that he uses at home helps temporarily. He is also taking his Claritin and Flonase. He states that for the last few days he has been feeling more weak and tired in general with increased cough, and he noted some brown sputum when normally it would be clear to yellow green. He states that has not had any chills or sweats. He has not had body aches. He has had ongoing intermittent swelling in his legs for which she takes Lasix. He states that this isn't clearly changed. No new pain in his legs. He denies chest pain. He sleeps upright in a chair because he the has achalasia, states this is not related to his breathing. Related Data Home Medications Medication Instructions Recorded Confirmed multivitamin [Multiple Vitamins] 1 tab PO DAILY #0 12/21/16 10/17/18 furosemide 20 mg DAILY PRN #0 08/11/17 10/17/18 aspirin 325 mg PO BEDTIME #0 11/03/17 10/17/18 fluticasone 1 spray INTRANASAL BID #0 11/03/17 10/17/18 loratadine [Claritin Liqui-Gel] 10 mg PO DAILY #0 11/03/17 10/17/18 acetaminophen-codeine 1 tab PO Q6H PRN 12/10/17 10/17/18 trazodone 400 tab PO BEDTIME 12/10/17 10/17/18 Co Q-10 2 cap PO DAILY 01/19/18 10/17/18 krill oil 1 cap PO DAILY 01/19/18 10/17/18 levalbuterol HCl 3 ml INHALATION Q6H PRN 10/17/18 10/17/18 metoprolol tartrate 100 mg PO BID 10/17/18 10/17/18 Previous Rx's Medication Instructions Recorded levalbuterol tartrate [Xopenex HFA] 1 puff INHALATION Q4-6H PRN #15 06/23/18 gram methylprednisolone 32 mg PO DAILY #7 tab 10/17/18 Allergies Allergy/AdvReac Type Severity Reaction Status Date / Time celecoxib [CELECOXIB] Allergy Mild SWELLING Verified 01/19/18 11:33 latex [LATEX] Allergy Mild RASH Verified 01/19/18 11:33 W/EXTENDED EXPOSURE morphine [MORPHINE] Allergy Mild Verified 01/19/18 11:33 Sulfa (Sulfonamide Allergy Mild RASH Verified 01/19/18 11:33 Antibiotics) [SULFA (SULFONAMIDE ANTIBIOTICS)] varenicline [VARENICLINE] Allergy Unknown Verified 01/19/18 11:33 oxycodone [OXYCODONE] AdvReac Severe HX Verified 01/19/18 11:33 ADSICTION, PT WANTS TO AVOID tramadol [TRAMADOL] AdvReac Severe HX Verified 01/19/18 11:33 ADDICTION, DOES NOT WANT TO TAKE buprenorphine [BUPRENORPHINE] AdvReac Mild NAUSEA, Verified 01/19/18 11:33 DIZZINESS Bxkibxh-Yel-Jig Reductase AdvReac Mild WEAK Verified 01/19/18 11:33 Inhibitor MUSCLES [TMFNYES-IKN-AVS REDUCTASE INHIBITOR] clonidine [CLONIDINE] AdvReac Unknown NO Verified 01/19/18 11:33 ALLERGY, DO NOT USE R/T BETA SVETLANA hyoscyamine [HYOSCYAMINE] AdvReac Unknown PARANOIA, Verified 01/19/18 11:33 LEF JERKING, ANXIETY, NAUSEA W/I MINUTES Review of Systems <Brooke Jensen PA-C - Last Filed: 10/17/18 21:56> Review of Systems ROS Unobtainable: All systems reviewed & are unremarkable except as noted in HPI and below PFSH <Brooke Jensen PA-C - Last Filed: 10/17/18 21:56> Medical History Neck pain, chronic (Chronic) Cervical spinal stenosis (Chronic) Achalasia (Chronic) Coronary artery disease (Acute) Atrial fibrillation (Chronic) Hypertension (Chronic) Chronic obstructive pulmonary disease (Chronic 10/23/16) COPD (chronic obstructive pulmonary disease) (Chronic) Coronary artery disease (Chronic) Surgical History History of heart bypass surgery (10/23/16) Family History Mother Stroke Social History Smoking Status: Former smoker Family History Mother Stroke Social History Smoking Status: Former smoker Exam <Brooke Jensen PA-C - Last Filed: 10/17/18 21:56> Narrative Exam Narrative: GENERAL APPEARANCE: Patient sitting comfortably, in no distress. HEENT: PERRL, EOMI, normal oropharynx, TMs intact with normal light reflexes NECK/THYROID: Neck supple, no JVD, no masses. LUNGS: Coarse, congested breath sounds with generalized wheezes and rhonchi, no clear crackles, intermittent cough on exam. Speaks easily in complete sentences HEART: Regular rate and rhythm without murmur, normal S1, S2, no S3 or S4. ABDOMEN: Soft, NT, ND, + BS x 4 quadrants EXTREMITIES: Mild symmetric pitting bilaterally. No calf tenderness NEUROLOGIC: Alert and oriented, normal speech, gait and coordination. Initial Vital Signs Initial Vital Signs: Vital Signs Temperature 98 F 10/17/18 12:00 Pulse Rate 75 10/17/18 12:00 Respiratory Rate 16 10/17/18 12:00 Blood Pressure 156/72 H 10/17/18 12:00 Pulse Oximetry 95 10/17/18 12:00 <Lorena John DO - Last Filed: 10/18/18 08:12> Initial Vital Signs Initial Vital Signs: Vital Signs Temperature 98 F 10/17/18 12:00 Pulse Rate 75 10/17/18 12:00 Respiratory Rate 16 10/17/18 12:00 Blood Pressure 156/72 H 10/17/18 12:00 Pulse Oximetry 95 10/17/18 12:00 Course <Brooke Jensen PA-C - Last Filed: 10/17/18 21:56> Additional Information: Patient is feeling significantly improved after nebulizer treatments, thinks Xopenex works better for him than DuoNeb. No acute findings on his remaining workup, most likely COPD exacerbation. This typically improves with Solu-Medrol which he will start and follow up with his PCP in the next day or 2. He agreed to return sooner if any acutely worsening symptoms again. Orders Ordered: Discontinued Medications Albuterol/Ipratropium (Duoneb) 3 ml INH NOW ONE Stop: 10/17/18 12:30 Last Admin: 10/17/18 12:56 Dose: Not Given Levalbuterol HCl (Xopenex) 1.25 mg INH NOW ONE Stop: 10/17/18 13:01 Last Admin: 10/17/18 13:10 Dose: 1.25 mg Vital Signs - 8 hr 10/17/18 14:43 Temperature 98.7 F Pulse Rate 69 Respiratory Rate 18 Blood Pressure [Right Arm] 112/55 L Pulse Oximetry 94 <Lorena John DO - Last Filed: 10/18/18 08:12> Orders Ordered: Discontinued Medications Albuterol/Ipratropium (Duoneb) 3 ml INH NOW ONE Stop: 10/17/18 12:30 Last Admin: 10/17/18 12:56 Dose: Not Given Levalbuterol HCl (Xopenex) 1.25 mg INH NOW ONE Stop: 10/17/18 13:01 Last Admin: 10/17/18 13:10 Dose: 1.25 mg Vital Signs - 8 hr 10/17/18 14:43 Temperature 98.7 F Pulse Rate 69 Respiratory Rate 18 Blood Pressure [Right Arm] 112/55 L Pulse Oximetry 94 MDM - URI/Sore Throat <Brooke Jensen PA-C - Last Filed: 10/17/18 21:56> Lab Data Result diagrams: 10/17/18 13:48 10/17/18 13:48 Lab Results 10/17/18 10/17/18 10/17/18 Range/Units 13:48 13:48 Unknown WBC 7.0 (4.5-11.0) X10^3/uL RBC 4.59 (4.5-5.9) X10^6/uL Hgb 14.3 (13.5-17.5) g/dL Hct 41.8 (41-53) % MCV 91.2 (80-100) fL MCH 31.1 (26-34) PG MCHC 34.1 (30-36) % RDW 14.6 (11.6-14.8) % Plt Count 213 (150-400) X10^3/uL Neut % (Auto) 54.3 (50-75) % Lymph % (Auto) 21.2 L (25-40) % Mcdonald % (Auto) 11.6 (3-14) % Eos % (Auto) 11.8 H (2-4) % Baso % (Auto) 1.1 (0-2) % Neut # (Auto) 3800 (2463-2793) /uL Lymph # (Auto) 1500 (1914-4143) /uL Mcdonald # (Auto) 800 (0-900) /uL Eos # (Auto) 800 H (0-450) /uL Baso # (Auto) 100 (0-100) /uL Sodium 137 (137-145) mmol/L Potassium 4.8 (3.4-5.1) mmol/L Chloride 97 L (98-107) mmol/L Carbon Dioxide 31 (22-32) mmol/L BUN 16 (9-20) mg/dL Creatinine 0.90 (0.66-1.25) mg/dL Estimated GFR > 60.0 (>60) mL/min BUN/Creatinine Ratio 17.8 (6-22) Glucose 107 (80-110) mg/dL Calcium 9.1 (8.4-10.2) mg/dL Magnesium 1.9 (1.6-2.3) mg/dL Total Bilirubin 0.8 (0.2-1.3) mg/dL AST 32 (17-59) IU/L ALT 37 (21-72) IU/L Alkaline Phosphatase 66 (38-126) U/L Total Creatine Kinase 149 (55-170) U/L CK-MB (CK-2) 3.08 H (<2.37) ng/mL CK-MB (CK-2) Rel Index 2.1 (1.5-5.0) % Troponin I < 0.012 (0.01-0.034) ng/mL B-Natriuretic Peptide < 100 (<100) Total Protein 7.5 (6.3-8.2) g/dL Albumin 4.3 (3.5-5.0) g/dL Globulin 3.2 (1.7-4.1) g/dL Albumin/Globulin Ratio 1.3 (1.0-2.8) Influenza A & B (PCR) Negative (Negative) Imaging Data Chest x-ray: Radiologist's impression: 17 Brooke Jensen PA-C Find Patient Imaging Karthikeyan Yo 73 M 1945 ACTIVITY DATE EXAM STATUS AUTHOR 10/17/18 12:[address] [address] XRay Report Signed Patient: Karthikeyan Yo DMR#: [id number] : 5Acct:[id number] Age/Sex: 73 / MDate of Service: 10/17/18 Loc: ED Accession Number: [id number] Procedure: XR chest 2V Ordering Provider: Brooke Jensen P.A-C PROCEDURE: XR CHEST 2V INDICATIONS: sob, h/o COPD, CHF TECHNIQUE: 2 views of the chest were acquired. COMPARISON: [facility], , XR CHEST 2V, 08/29/2018, 10:21. FINDINGS: Surgical changes and devices: Sternotomy wires are again seen. Prior fusion of lower cervical spine is again noted. Lungs and pleura: Lungs are clear. No pleural effusions or pneumothorax. Mediastinum: Mediastinal contours are normal. Heart size is enlarged. Bones and chest wall: No suspicious bony abnormalities. Soft tissues appear unremarkable. IMPRESSION: No acute cardio pulmonary pathology. Dictated by: Reji Starr M.D. on 10/17/2018 at 12:50 Approved by: Reji Starr M.D. on 10/17/2018 at 12:50 ECG Data Attestation: I personally reviewed and interpreted this ECG as follows: (The normal sinus rhythm, rate 70, normal axis) <Lorena John DO - Last Filed: 10/18/18 08:12> Lab Data Attestation: I reviewed the patient's lab results. Lab Results 10/17/18 10/17/18 10/17/18 Range/Units 13:48 13:48 Unknown WBC 7.0 (4.5-11.0) X10^3/uL RBC 4.59 (4.5-5.9) X10^6/uL Hgb 14.3 (13.5-17.5) g/dL Hct 41.8 (41-53) % MCV 91.2 (80-100) fL MCH 31.1 (26-34) PG MCHC 34.1 (30-36) % RDW 14.6 (11.6-14.8) % Plt Count 213 (150-400) X10^3/uL Neut % (Auto) 54.3 (50-75) % Lymph % (Auto) 21.2 L (25-40) % Mcdonald % (Auto) 11.6 (3-14) % Eos % (Auto) 11.8 H (2-4) % Baso % (Auto) 1.1 (0-2) % Neut # (Auto) 3800 (8637-9880) /uL Lymph # (Auto) 1500 (5006-2640) /uL Mcdonald # (Auto) 800 (0-900) /uL Eos # (Auto) 800 H (0-450) /uL Baso # (Auto) 100 (0-100) /uL Sodium 137 (137-145) mmol/L Potassium 4.8 (3.4-5.1) mmol/L Chloride 97 L (98-107) mmol/L Carbon Dioxide 31 (22-32) mmol/L BUN 16 (9-20) mg/dL Creatinine 0.90 (0.66-1.25) mg/dL Estimated GFR > 60.0 (>60) mL/min BUN/Creatinine Ratio 17.8 (6-22) Glucose 107 (80-110) mg/dL Calcium 9.1 (8.4-10.2) mg/dL Magnesium 1.9 (1.6-2.3) mg/dL Total Bilirubin 0.8 (0.2-1.3) mg/dL AST 32 (17-59) IU/L ALT 37 (21-72) IU/L Alkaline Phosphatase 66 (38-126) U/L Total Creatine Kinase 149 (55-170) U/L CK-MB (CK-2) 3.08 H (<2.37) ng/mL CK-MB (CK-2) Rel Index 2.1 (1.5-5.0) % Troponin I < 0.012 (0.01-0.034) ng/mL B-Natriuretic Peptide < 100 (<100) Total Protein 7.5 (6.3-8.2) g/dL Albumin 4.3 (3.5-5.0) g/dL Globulin 3.2 (1.7-4.1) g/dL Albumin/Globulin Ratio 1.3 (1.0-2.8) Influenza A & B (PCR) Negative (Negative) ECG Data Attestation: I personally reviewed and interpreted this ECG as follows: Prior ECG tracings: available for review Interpretation: Normal sinus rhythm rate [address] changes no T-wave inversions similar to previous EKGs Discharge Plan Departure Patient Disposition: Home Clinical Impression: COPD exacerbation Discharge Date/Time: 10/17/18 15:05 Interventions: ED Discharge Assessment Last Done: 10/17/18 15:05 Instructions: DI for Chronic Obstructive Pulmonary Disease Activity Restrictions/Additional Instructions: Please return as we talked about if you have any acutely worsening symptoms. Please start on the steroid as soon as you pick it up since it was helpful for you in the past. Continue your nebulizer as often as needed and your inhaler when you are out of the house. Please follow-up with your PCP in a few days to make sure that your improving and determine whether to stop the steroid or continue at a lower dose. You also may wish to try changing your antihistamine to Zyrtec (cetirizine) from Claritin as this might help with your drainage a little bit more. You could start taking it tonight even if you have taken Claritin today. Prescriptions: New methylprednisolone 16 mg tablet 32 mg PO DAILY Qty: 7 RF: 0 No Action multivitamin [Multiple Vitamins] 1 EACH tablet 1 tab PO DAILY Qty: 0 RF: 0 furosemide 20 MG tablet 20 mg DAILY PRN (Reason: Edema) Qty: 0 RF: 0 aspirin 325 MG tablet,delayed release (DR/EC) 325 mg PO BEDTIME Qty: 0 RF: 0 fluticasone 16 GM spray,suspension 1 spray Intranasal BID Qty: 0 RF: 0 loratadine [Claritin Liqui-Gel] 10 MG capsule 10 mg PO DAILY Qty: 0 RF: 0 acetaminophen-codeine 300-30 mg tablet 1 tab PO Q6H PRN (Reason: Pain) RF: 0 trazodone 100 mg tablet 400 tab PO BEDTIME RF: 0 Co Q-10 2 cap PO DAILY RF: 0 krill oil 1 cap PO DAILY RF: 0 levalbuterol tartrate [Xopenex HFA] 45 mcg/actuation HFA aerosol inhaler 1 puff INHALATION Q4-6H PRN (Reason: shortness of breath or wheezing) Qty: 15 RF: 0 metoprolol tartrate 100 mg tablet 100 mg PO BID RF: 0 levalbuterol HCl 1.25 mg/3 mL solution for nebulization 3 ml Inhalation Q6H PRN (Reason: Shortness Of Breath) RF: 0 Referrals: Christopher Ludwig MD [Physician] - <Lorena John DO - Last Filed: 10/18/18 08:12> Cosign ED Attending Cosignature Attestation: I was immediately available in the department for consultation. Documentation has been reviewed. I agree with assessment and plan.
[2018-10-17] MEDS: LEVALBUTEROL 1.25 MG/0.5 ML NEB INH (13:10)
[2018-10-17 13:11] VITALS: PULSE 76; RESP 18; O2SAT 98
[2018-10-17 13:55] LABS: Add Manual Diff / Slide Review NO; Basophils Absolute Auto 100 /uL (0-100); Basophils Percent Auto 1.1 % (0-2); Eosinophils Absolute Auto 800 /uL (0-450); Eosinophils Percent Auto 11.8 % (2-4); Hematocrit 41.8 % (41-53); Hemoglobin 14.3 g/dL (13.5-17.5); Lymphocytes Absolute Auto 1500 /uL (1100-4500); Lymphocytes Percent Auto 21.2 % (25-40); Mean Corpuscular HGB Conc 34.1 % (30-36); Mean Corpuscular Hemoglobin 31.1 PG (26-34); Mean Corpuscular Volume 91.2 fL (80-100); Monocytes Absolute Auto 800 /uL (0-900); Monocytes Percent Auto 11.6 % (3-14); Neutrophils Absolute Auto 3800 /uL (1500-7000); Neutrophils Percent Auto 54.3 % (50-75); Platelet Count 213 X10^3/uL (150-400); Red Blood Cell Count 4.59 X10^6/uL (4.5-5.9); Red Cell Distribution Width 14.6 % (11.6-14.8)
[2018-10-17 14:01] LABS: Influenza A and B by PCR Rapid Negative (Negative)
[2018-10-17 14:10] LABS: Alanine Aminotransferase 37 IU/L (21-72); Albumin 4.3 g/dL (3.5-5.0); Albumin Globulin Ratio 1.3 (1.0-2.8); Alkaline Phosphatase 66 U/L (38-126); Aspartate Aminotransferase 32 IU/L (17-59); BUN Creatinine Ratio 17.8 (6-22); Bilirubin Total 0.8 mg/dL (0.2-1.3); Blood Urea Nitrogen 16 mg/dL (9-20); Calcium 9.1 mg/dL (8.4-10.2); Carbon Dioxide 31 mmol/L (22-32); Chloride 97 mmol/L (98-107); Creatine Kinase 149 U/L (55-170); Estimated Glomerular Filt Rate > 60.0 mL/min (>60); Globulin 3.2 g/dL (1.7-4.1); Glucose 107 mg/dL (80-110); HEMOLYSIS < 15 (0-50); Magnesium 1.9 mg/dL (1.6-2.3); Potassium 4.8 mmol/L (3.4-5.1); Sodium 137 mmol/L (137-145); Total Protein 7.5 g/dL (6.3-8.2)
[2018-10-17 14:20] LABS: Troponin I < 0.012 ng/mL (0.01-0.034)
[2018-10-17 14:25] LABS: CKMB % Relative Index 2.1 % (1.5-5.0); Creatine Kinase MB 3.08 ng/mL (<2.37)
[2018-10-17 14:29] LABS: B Type Natriuretic Peptide < 100 (<100)
[2018-10-17 14:43] VITALS: BP 112/55; PULSE 69; RESP 18; TEMP 37.1; O2SAT 94
== END 2018-10-17 15:05 | disposition home or self-care (01) ==
PROVIDERS: Emergency Provider Internal Medicine
DX: J44.1 Chronic obstructive pulmonary disease with (acute) exacerbation (principal)
CPT/HCPCS: 71046; 80053; 82550; 82553; 83735; 83880; 84484; 85025; 87400; 93005; 94640; 99282; 99285; J7614

== ENCOUNTER → 2018-11-15 12:59 | Outpatient (CLI) | payer OTHER, SELFPAY ==
--- NOTE | 2018-11-15 | DI.CT.S_ITS ---
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 Additional oblique axial 3.0 mm sections acquired through the pharynx. 3 mm thick coronal and sagittal reformats were generated. For radiation dose reduction, the following was used: automated exposure control. COMPARISON: None. FINDINGS: Image quality: Significantly reduced by absence of intravenous contrast. Lymph nodes: No enlarged lymph nodes seen throughout the neck. Vessels: Non-opacified vessels appear normal in caliber. Neck spaces: The oropharynx, nasopharynx, and pharynx demonstrate no mucosal lesions. The vocal cords, false vocal cords, pyriform sinuses, epiglottis, vallecula, and tongue base all appear normal. Extramucosal spaces appear unremarkable. Glands: The parotid and submandibular glands appear normal, without stones. Thyroid gland appears normal where well visualized. Miscellaneous: Visualized brain and orbits appear normal. Lung apices appear clear. Superficial soft tissues appear normal. IMPRESSION: Anatomic detail is reduced by absence of intravenous contrast. No identified mass or adenopathy is seen. 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 The study was specifically ordered to be performed without intravenous contrast. Dictated by: Damien Medina M.D. on 11/15/2018 at 14:30 Approved by: Damien Medina M.D. on 11/15/2018 at 14:33
--- NOTE | 2018-11-15 | DI.CT.S_ITS ---
PROCEDURE: CT CHEST HIGH RESOLUTION INDICATIONS: Interstitial pulmonary disease, unspecified TECHNIQUE: Noncontrast 1.0 and 5.0 mm thick contiguous axial sections from the pulmonary apex to the posterior costophrenic angles, with 7 mm thick coronal and sagittal MIP reformats. 1 mm thick dynamic expiratory images acquired through the upper, mid, and lower lungs. 1.0 mm thick axial sections acquired from the chasidy to the posterior costophrenic angles in the prone end-inspiration position. For radiation dose reduction, the following was used: automated exposure control, adjustment of mA and/or kV according to patient size. COMPARISON: [facility], , CERVICAL SPINE 2 OR 3 VIEWS, 06/11/2016, 12:23. FINDINGS: Image quality: Mildly compromised by patient persistent cough over the course of the examination.. Lungs: There is no sign of alveolitis or pulmonary fibrosis. No pneumonia or neoplasm is found. Pleura: No pleural effusions or pneumothorax. Mediastinum: Heart size is normal. No pericardial effusion. Thoracic aorta and central pulmonary arteries are normal in size. Esophagus is normal in caliber. Sternotomy wires, presumed prior CABG. Bones and chest wall: No suspicious bony lesions. No vertebral body compression fractures. Prior anterior cervical fusion procedures have been performed at C4-5 and C7-T1. Abdomen: Visualized upper abdominal solid organs and bowel loops appear normal. IMPRESSION: No alveolitis or pulmonary fibrosis. 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 Dictated by: Damien Medina M.D. on 11/15/2018 at 14:33 Approved by: Damien Medina M.D. on 11/15/2018 at 14:38
== END ==
PROVIDERS: PCP Internal Medicine Cardiovascular Disease; Visit Provider Internal Medicine
DX: J84.9 Interstitial pulmonary disease, unspecified (principal); M54.2 Cervicalgia
CPT/HCPCS: 70490; 71250

== ENCOUNTER 2018-11-15 13:30 | Emergency (ER) | payer OTHER, SELFPAY ==
[2018-11-15 13:40] VITALS: PULSE 86; RESP 20; TEMP 36.7; O2SAT 95
[2018-11-15 14:00] VITALS: BP 140/91; PULSE 74; RESP 17; O2SAT 94
--- NOTE | 2018-11-15 14:04 | ED.URI ---
HPI - URI/Sore Throat General Chief Complaint: Upper Respiratory Symptoms Stated Complaint: constant cough, sob Time Seen by Provider: 11/15/18 14:03 Source: patient Mode of arrival: ambulatory Limitations: no limitations History of Present Illness HPI Narrative: Patient is a 73-year-old male who was obtaining a CT scan of his neck and his chest today ordered by his journeyman meat cutter for evaluation of a cough that he has been having for several weeks. During the CT visit the patient became anxious and coughing. He stated that he ?could not take it anymore? he was brought over to the emergency department for evaluation. Related Data Home Medications Medication Instructions Recorded Confirmed multivitamin [Multiple Vitamins] 1 tab PO DAILY #0 12/21/16 11/15/18 furosemide 20 mg DAILY PRN #0 08/11/17 11/15/18 aspirin 325 mg PO BEDTIME #0 11/03/17 11/15/18 fluticasone propionate 1 spray INTRANASAL BID #0 11/03/17 11/15/18 loratadine [Claritin Liqui-Gel] 10 mg PO DAILY #0 11/03/17 11/15/18 acetaminophen-codeine 1 tab PO Q4-6H PRN 12/10/17 11/15/18 trazodone 400 tab PO BEDTIME 12/10/17 11/15/18 Co Q-10 2 cap PO DAILY 01/19/18 11/15/18 krill oil 1 cap PO DAILY 01/19/18 11/15/18 levalbuterol HCl 3 ml INHALATION Q6H PRN 10/17/18 11/15/18 metoprolol tartrate 100 mg PO BID 10/17/18 11/15/18 Spiriva Respimat 1 puff INHALATION DIRECTED 11/15/18 11/15/18 Symbicort 1 puff INHALATION DIRECTED 11/15/18 11/15/18 Previous Rx's Medication Instructions Recorded levalbuterol tartrate [Xopenex HFA] 1 puff INHALATION Q4-6H PRN #15 06/23/18 gram Allergies Allergy/AdvReac Type Severity Reaction Status Date / Time celecoxib [CELECOXIB] Allergy Mild SWELLING Verified 01/19/18 11:33 latex [LATEX] Allergy Mild RASH Verified 01/19/18 11:33 W/EXTENDED EXPOSURE morphine [MORPHINE] Allergy Mild Verified 01/19/18 11:33 Sulfa (Sulfonamide Allergy Mild RASH Verified 01/19/18 11:33 Antibiotics) [SULFA (SULFONAMIDE ANTIBIOTICS)] varenicline [VARENICLINE] Allergy Unknown Verified 01/19/18 11:33 oxycodone [OXYCODONE] AdvReac Severe HX Verified 01/19/18 11:33 ADSICTION, PT WANTS TO AVOID tramadol [TRAMADOL] AdvReac Severe HX Verified 01/19/18 11:33 ADDICTION, DOES NOT WANT TO TAKE buprenorphine [BUPRENORPHINE] AdvReac Mild NAUSEA, Verified 01/19/18 11:33 DIZZINESS Tomnouy-Sdy-Ofg Reductase AdvReac Mild WEAK Verified 01/19/18 11:33 Inhibitor MUSCLES [JMJMLNP-PCN-NDL REDUCTASE INHIBITOR] clonidine [CLONIDINE] AdvReac Unknown NO Verified 01/19/18 11:33 ALLERGY, DO NOT USE R/T BETA SVETLANA hyoscyamine [HYOSCYAMINE] AdvReac Unknown PARANOIA, Verified 01/19/18 11:33 LEF JERKING, ANXIETY, NAUSEA W/I MINUTES Review of Systems Constitutional Denies fever(s) Cardiovascular Denies chest pain and Reports dyspnea Respiratory Reports cough and Reports dyspnea Gastrointestinal Gastrointestinal: Denies abdominal pain, Denies nausea and Denies vomiting Musculoskeletal Denies myalgias and Denies arthralgias Integumentary/Breasts Denies rash Hematologic/Lymphatic Denies easy bleeding and Denies easy bruising [facility] Medical History Neck pain, chronic (Chronic) Cervical spinal stenosis (Chronic) Achalasia (Chronic) Coronary artery disease (Acute) Atrial fibrillation (Chronic) Hypertension (Chronic) Chronic obstructive pulmonary disease (Chronic 10/23/16) COPD (chronic obstructive pulmonary disease) (Chronic) Coronary artery disease (Chronic) Surgical History (Updated 10/17/18 @ 13:10 by Brooke Jensen PA-C) History of heart bypass surgery (10/23/16) Family History Mother Stroke Social History Smoking Status: Former smoker Social History Smoking Status: Former smoker Exam Initial Vital Signs Initial Vital Signs: Vital Signs Temperature 98.0 F 11/15/18 13:40 Pulse Rate 86 11/15/18 13:40 Respiratory Rate 20 11/15/18 13:40 Pulse Oximetry 95 11/15/18 13:40 Const General: cooperative, healthy appearing, well developed, well groomed and No acute distress Orientation: alert, awake and oriented x3 HENMT Head: normal to inspection and normocephalic Resp Effort & Inspection: normal respiratory effort, no audible wheezes, not labored and no retractions Auscultation: crackles Cardio Rate: regular rate Rhythm: regular rhythm Skin Lesions: no lesions Rashes: no rashes Neuro General: alert, awake and oriented x3 Cognition: normal cognition Psych Speech and Movement: not agitated Mood: anxious mood Course Orders Ordered: ED Orders 11/15/18 13:55 EKG-12 Lead Stat Discontinued Medications Levalbuterol HCl (Xopenex) 1.25 mg INH NOW ONE Stop: 11/15/18 14:55 Last Admin: 11/15/18 14:56 Dose: 1.25 mg Lorazepam (Ativan) 1 mg PO NOW ONE Stop: 11/15/18 14:12 Last Admin: 11/15/18 14:43 Dose: 1 mg Vital Signs - 8 hr 11/15/18 13:40 11/15/18 14:00 11/15/18 15:02 Temperature 98.0 F Pulse Rate 86 74 67 Respiratory Rate 20 17 16 Blood Pressure Blood Pressure [Left Arm] 140/91 H Pulse Oximetry 95 94 95 11/15/18 15:04 11/15/18 15:51 Temperature Pulse Rate 67 67 Respiratory Rate 16 16 Blood Pressure 142/76 H Blood Pressure [Left Arm] 149/75 H Pulse Oximetry 99 98 MDM - URI/Sore Throat ECG Data Attestation: I personally reviewed and interpreted this ECG as follows: Prior ECG tracings: not available for review Interpretation: Sinus rhythm Ventricular rate is 76 Normal QRS Normal QTC Normal axis No ST T wave changes MDM Narrative Medical decision making narrative: Patient became very anxious during the interview and requested Ativan. This did seem to improve his symptoms quite a bit. I did share the CT results with him. There is no acute pathology noted on the CT scan. His EKG was unremarkable. Upon further talking with him after the Ativan it appeared that he was told that the CT scan was being performed to ?rule out cancer? he stated that this was told to him by his journeyman meat cutter. He stated that he felt like he was not going to be able to wait to get the results given the indication. Informed him that there were no concerning masses seen on the CT scan however he does need to go over the results with his journeyman meat cutter. Patient does have inhalers at home. He felt much more comfortable after discussing the CT results. Informed him that he still needed to follow up with his journeyman meat cutter. He is given return precautions. Both he and his expressed understanding and agreement with plan. Discharge Plan Departure Patient Disposition: Home Clinical Impression: Cough Discharge Date/Time: 11/15/18 15:52 Interventions: ED Discharge Assessment Last Done: 11/15/18 15:51 Instructions: Cough Activity Restrictions/Additional Instructions: Recommend that tomorrow you contact your journeyman meat cutter to discuss the CT results and to discuss your future medications. Return to the emergency department for any new or worsening symptoms Prescriptions: No Action multivitamin [Multiple Vitamins] 1 EACH tablet 1 tab PO DAILY Qty: 0 RF: 0 furosemide 20 MG tablet 20 mg DAILY PRN (Reason: Edema) Qty: 0 RF: 0 aspirin 325 MG tablet,delayed release (DR/EC) 325 mg PO BEDTIME Qty: 0 RF: 0 fluticasone propionate 16 GM spray,suspension 1 spray Intranasal BID Qty: 0 RF: 0 loratadine [Claritin Liqui-Gel] 10 MG capsule 10 mg PO DAILY Qty: 0 RF: 0 Spiriva Respimat 1 puff Inhalation DIRECTED RF: 0 Symbicort 1 puff Inhalation DIRECTED RF: 0 acetaminophen-codeine 300-30 mg tablet 1 tab PO Q4-6H PRN (Reason: Pain) RF: 0 trazodone 100 mg tablet 400 tab PO BEDTIME RF: 0 Co Q-10 2 cap PO DAILY RF: 0 krill oil 1 cap PO DAILY RF: 0 levalbuterol tartrate [Xopenex HFA] 45 mcg/actuation HFA aerosol inhaler 1 puff INHALATION Q4-6H PRN (Reason: shortness of breath or wheezing) Qty: 15 RF: 0 metoprolol tartrate 100 mg tablet 100 mg PO BID RF: 0 levalbuterol HCl 1.25 mg/3 mL solution for nebulization 3 ml Inhalation Q6H PRN (Reason: Shortness Of Breath) RF: 0 Referrals: Chapincito Villarreal MD [Primary Care Provider] -
[2018-11-15] MEDS: LORazepam 1 MG TABLET PO (14:43)
[2018-11-15] MEDS: LEVALBUTEROL 1.25 MG/0.5 ML NEB INH (14:56)
[2018-11-15 15:02] VITALS: PULSE 67; RESP 16; O2SAT 95
[2018-11-15 15:04] VITALS: BP 149/75; PULSE 67; RESP 16; O2SAT 99
--- NOTE | 2018-11-15 15:27 | PC.NURSE ---
Patient states feels much better after ativan and xopenex nebulizer. Wants CT results and to be DC'd. MD Prakash aware.
[2018-11-15 15:51] VITALS: BP 142/76; PULSE 67; RESP 16; O2SAT 98
== END 2018-11-15 15:52 | disposition home or self-care (01) ==
PROVIDERS: Emergency Provider Emergency Medicine; PCP Internal Medicine Cardiovascular Disease
DX: R05 Cough (principal); R06.02 Shortness of breath; J84.9 Interstitial pulmonary disease, unspecified; M54.2 Cervicalgia
CPT/HCPCS: 70490; 71250; 93005; 93010; 94640; 99282; 99283; J7614

== ENCOUNTER → 2018-12-07 12:19 | Outpatient (CLI) | payer OTHER, SELFPAY ==
--- NOTE | 2018-12-07 | DI.MRI.S_ITS ---
PROCEDURE: MR KNEE LT WO CON INDICATIONS: OSTEOARTHRITIS LEFT KNEE TECHNIQUE: [facility] [employer] protocol was performed. Noncontrast sagittal PD fast spin echo and T2 fast spin echo with fat saturation, sagittal 3-D FLASH with fat saturation; coronal T1 spin echo and PD fast spin echo with fat saturation, and axial PD fast spin echo with fat saturation through the knee. COMPARISON: None. FINDINGS: Image quality: Excellent. Menisci: Lateral meniscal tear involving the body and posterior horn. There is partial extrusion and abnormal signal extending to the superior and inferior articular surfaces. There is also marked truncation of the free margin. Medial meniscal undersurface are also noted involving the body. There is truncation of the free margin on image 18 series 9. Cruciate ligaments: Thickening and internal signal changes of the anterior cruciate ligament are noted. This suggests partial rupture. The posterior cruciate ligament also appears thickened with ill-defined intermediate intrasubstance signal change. Medial structures: Mild edema adjacent to the medial collateral ligament raising possibility of reactive changes due to medial meniscal pathology versus low-grade sprain. The semimembranosus tendon appears intact although there is adjacent fluid, potentially low lying Barraza's cyst. There is also fluid adjacent to the pes anserinus tendons suggestive of bursitis Lateral structures: Age indeterminate low-grade sprain of the proximal lateral collateral ligament. The long and short heads of the biceps femoris tendon appear intact. The popliteus tendon appears normal; the popliteofibular ligament appears intact. The posterosuperior and anteroinferior popliteomeniscal fascicles appear intact. The arcuate and fabellofibular ligaments appear intact, on either side of the lateral inferior geniculate artery. Iliotibial band appears normal. Anterior structures: Prepatellar and superficial infrapatellar subcutaneous edema/fluid. The quadriceps and patellar tendons appear intact. Patellar alignment is normal. No femoral trochlear dysplasia or ventral trochlear prominence. No edema in the infrapatellar fat pad. Bones and cartilage: No focal marrow contusion or discrete low signal fracture line. Within the medial compartment, diffuse partial-thickness loss of the femoral and tibial articular cartilage. Within the lateral compartment, there is a full-thickness denudation of the femoral and tibial articular cartilage are present. Within the patellofemoral compartment, diffuse partial-thickness surface fraying of the lateral patellar facet and femoral trochlear cartilage. Joint space: Large joint effusion is seen. Within the suprapatellar recess, numerous debris versus sub-5 mm loose bodies. There is also a possible 5 mm loose body seen on image 53 series 10 in the anterior aspect of the intercondylar notch. IMPRESSION: Lateral meniscal tear involving the body and posterior horn with partial extrusion. Medial meniscal undersurface tear involving the body. Signal changes and thickening of the anterior cruciate ligament suggestive of partial rupture. Additional similar changes to a lesser extent involving the PCL in keeping with low-grade sprain, technically age unknown. 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 Large joint effusion with scattered loose bodies and/or debris as above Pes anserinus bursitis. Low lying Barraza's cyst versus semimembranosus tenosynovitis/tendinopathy. Dictated by: Moose Blanton M.D. on 12/07/2018 at 14:38 Approved by: Moose Blanton M.D. on 12/07/2018 at 14:48
== END ==
PROVIDERS: PCP Internal Medicine; Visit Provider Orthopaedic Surgery
DX: M17.12 Unilateral primary osteoarthritis, left knee (principal); S83.242A Other tear of medial meniscus, current injury, left knee, initial encounter; S83.282A Other tear of lateral meniscus, current injury, left knee, initial encounter; M25.462 Effusion, left knee; M70.52 Other bursitis of knee, left knee
CPT/HCPCS: 73721

== ENCOUNTER → 2018-12-23 09:49 | Outpatient (CLI) | payer OTHER, SELFPAY ==
--- NOTE | 2018-12-23 | DI.CT.S_ITS ---
PROCEDURE: CT SOFT TISSUE NECK WO CON INDICATIONS: chronic cough. Stridor. Interstitial lung disease. 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 TECHNIQUE: Non-contrast 3.0 mm axial sections acquired from the sella to the aortic arch. Additional oblique axial 3.0 mm sections acquired through the pharynx. 3 mm thick coronal and sagittal reformats were generated. For radiation dose reduction, the following was used: automated exposure control. COMPARISON: None. FINDINGS: Image quality: Excellent. Lymph nodes: No enlarged lymph nodes seen throughout the neck. Vessels: Non-opacified vessels appear normal in caliber. Neck spaces: Scrutiny is given to the vocal cords. No focal abnormalities are detected of the vocal cords. The oropharynx, nasopharynx, and pharynx demonstrate no mucosal lesions. The vocal cords, false vocal cords, pyriform sinuses, epiglottis, vallecula, and tongue base all appear normal. Extramucosal spaces appear unremarkable. Glands: The parotid and submandibular glands appear normal, without stones. Thyroid gland demonstrates no significant noncontrast abnormality. Miscellaneous: Visualized brain and orbits appear normal. Lung apices appear clear. Superficial soft tissues appear normal. Sternotomy wires are partially seen. Mediastinal clips are also seen. Bony degenerative changes are seen. There is anterior fixation hardware at the C4-C5 level and C6-C7 level. Bony fusion is seen at C5-C6. Bridging anterior osteophytes are seen at C3-C4. IMPRESSION: No masses or other significant abnormalities can be seen to the limits of this noncontrast CT. Postoperative changes are seen, with sternotomy wires, mediastinal clips, and cervical spine fusion. Dictated by: Arnie Cook M.D. on 12/23/2018 at 10:29 Approved by: Arnie Cook M.D. on 12/23/2018 at 10:33
--- NOTE | 2018-12-23 | DI.CT.S_ITS ---
PROCEDURE: CT CHEST WO CON INDICATIONS: chronic cough TECHNIQUE: Noncontrast 5 mm thick sections acquired from the pulmonary apices to the posterior costophrenic angles. 7 mm thick coronal and sagittal MIP reformats were then acquired. For radiation dose reduction, the following was used: automated exposure control, adjustment of mA and/or kV according to patient size. COMPARISON: None. FINDINGS: Image quality: Excellent. Lungs and pleura: No acute air space opacities. No pleural effusions or pneumothorax. Central and peripheral airways are patent and normal in caliber. Mediastinum: Median sternotomy wires are seen. Heart size is enlarged. No pericardial effusion. Coronary artery calcifications are seen. Atherosclerotic calcifications also seen throughout thoracic aorta. No mediastinal adenopathy by size criteria. Subcentimeter lymph nodes are seen in mediastinum measures up to 8 mm in short axis diameter and right paratracheal space. Thoracic aorta and central pulmonary arteries are normal in size. Esophagus is normal in caliber. There is a small hiatal hernia. Bones and chest wall: No suspicious bony lesions. Fusion hardware is seen in lower cervical spine. No vertebral body compression fractures. No axillary or supraclavicular adenopathy by size criteria. Thyroid gland is within normal limits. Abdomen: Visualized upper abdominal solid organs and bowel loops appear normal in the absence of contrast. There is diffuse hepatic steatosis. IMPRESSION: 1. Bilateral lungs are clear. 2. Prior cardiac surgery with median sternotomy. Prior fusion of cervical spine. 3. Clinically, no pericardial effusion. No gross mediastinal or hilar lymphadenopathy. Small hiatal hernia. 4. Hepatic steatosis. Dictated by: Reji Starr M.D. on 12/23/2018 at 12:01 Approved by: Reji Starr M.D. on 12/23/2018 at 12:09
== END ==
PROVIDERS: PCP Internal Medicine; Visit Provider Internal Medicine
DX: J84.9 Interstitial pulmonary disease, unspecified (principal); R05 Cough; R06.1 Stridor; Z98.1 Arthrodesis status; K44.9 Diaphragmatic hernia without obstruction or gangrene; K76.0 Fatty (change of) liver, not elsewhere classified
CPT/HCPCS: 70490; 71250

== ENCOUNTER 2019-01-08 12:46 | Emergency (ER) | payer OTHER, SELFPAY ==
[2019-01-08] VITALS (10 sets, daily range): BP systolic 72–162; BP diastolic 53–78; PULSE 79–95; RESP 18–21; TEMP 37; O2SAT 92–98; BMI 31.8
--- NOTE | 2019-01-08 13:20 | DI.RAD.S_ITS ---
PROCEDURE: XR CHEST 1V INDICATIONS: chest pain TECHNIQUE: One view of the chest was acquired. COMPARISON: [facility], CT, CT CHEST WO CON, 12/23/2018, 10:07. [facility], CR, XR CHEST 2V, 10/17/2018, 12:38. FINDINGS: Surgical changes and devices: Postoperative changes of the cervical spine and sternum are present, similar to the prior study, but not adequately evaluated. Lungs and pleura: Linear areas of increased density at the left lung base are present, which are new since the previous study. There may be minimal consolidation of the lungs within the bilateral infrahilar regions. No large effusion or pneumothorax is appreciated. Mediastinum: Mediastinal contours appear normal. Heart size is normal. There appears to be aortic atherosclerosis. Bones and chest wall: No suspicious bony lesions. Widening of the left acromioclavicular joint is unchanged and may be postoperative. Overlying soft tissues appear unremarkable. IMPRESSION: 1. Minimal scarring versus atelectasis at the left lung base. 2. Possible developing infrahilar airspace disease. This may represent atelectasis versus pneumonia. Please correlate clinically. Dictated by: Gerry Alvarez M.D. on 01/08/2019 at 12:43 Approved by: Gerry Alvarez M.D. on 01/08/2019 at 12:44
[2019-01-08 13:28] LABS: Prothrombin Time 11.7 SECONDS (10.1-12.7)
--- NOTE | 2019-01-08 13:29 | ED_ITS ---
HPI - Chest Pain General Chief Complaint: Chest Pain Stated Complaint: Chest Pain Time Seen by Provider: 01/08/19 13:27 Source: patient and family Limitations: no limitations History of Present Illness HPI narrative: This is a 73-year-old male who comes to the emergency department with complaint of chest pain. Patient states his left chest to his left shoulder neck down his arm. He states he thought it might have been a shoulder but that usually goes away and has been continuing for about 3 days. Sort of waxes and wanes in intensity. Patient states it is worse with exertion. When he walks room to room he gets sweaty, he feels lightheaded, he feels short of breath and the pain is worsened. He has not had any syncope but felt like he would have near syncope. Patient does have increasing swelling in his lower extremities he has had some orthopnea it is difficult for him to lay flat. He soft done in the nurse practitioner the cardiology's office on Wednesday. They increased his Lasix from 20-40 mg and he is scheduled for a nuclear medicine stress test on Wednesday. He did not tell in that he was having the shoulder/chest pain at that time. Patient states that he had a CABG about 11 years ago, it was 3 vessel. He has history of AFib had an ablation he is not aware that he is typically in atrial fibrillation. He takes aspirin 324 mg daily. He is not sure if he had it today. He takes metoprolol. He is not on a statin because he had a bad reaction he takes trazodone and, and uses nebs daily asthma. Quit smoking 10 years ago occasionally drinks alcohol, no illicit. He has had arthroscopic surgery on his knee. No allergies to medications PCP is sangita, computer support specialist is Reynaldo. Related Data Home Medications Medication Instructions Recorded Confirmed multivitamin [Multiple Vitamins] 1 tab PO DAILY #0 12/21/16 11/15/18 furosemide 20 mg DAILY PRN #0 08/11/17 11/15/18 aspirin 325 mg PO BEDTIME #0 11/03/17 11/15/18 fluticasone propionate 1 spray INTRANASAL BID #0 11/03/17 11/15/18 loratadine [Claritin Liqui-Gel] 10 mg PO DAILY #0 11/03/17 11/15/18 acetaminophen-codeine 1 tab PO Q4-6H PRN 12/10/17 11/15/18 trazodone 400 tab PO BEDTIME 12/10/17 11/15/18 Co Q-10 2 cap PO DAILY 01/19/18 11/15/18 krill oil 1 cap PO DAILY 01/19/18 11/15/18 levalbuterol HCl 3 ml INHALATION Q6H PRN 10/17/18 11/15/18 metoprolol tartrate 100 mg PO BID 10/17/18 11/15/18 Spiriva Respimat 1 puff INHALATION DIRECTED 11/15/18 11/15/18 Symbicort 1 puff INHALATION DIRECTED 11/15/18 11/15/18 Previous Rx's Medication Instructions Recorded levalbuterol tartrate [Xopenex HFA] 1 puff INHALATION Q4-6H PRN #15 06/23/18 gram isosorbide mononitrate 30 mg PO DAILY #20 tab 01/08/19 Allergies Allergy/AdvReac Type Severity Reaction Status Date / Time celecoxib [CELECOXIB] Allergy Mild SWELLING Verified 01/19/18 11:33 latex [LATEX] Allergy Mild RASH Verified 01/19/18 11:33 W/EXTENDED EXPOSURE morphine [MORPHINE] Allergy Mild Verified 01/19/18 11:33 Sulfa (Sulfonamide Allergy Mild RASH Verified 01/19/18 11:33 Antibiotics) [SULFA (SULFONAMIDE ANTIBIOTICS)] varenicline [VARENICLINE] Allergy Unknown Verified 01/19/18 11:33 oxycodone [OXYCODONE] AdvReac Severe HX Verified 01/19/18 11:33 ADSICTION, PT WANTS TO AVOID tramadol [TRAMADOL] AdvReac Severe HX Verified 01/19/18 11:33 ADDICTION, DOES NOT WANT TO TAKE buprenorphine [BUPRENORPHINE] AdvReac Mild NAUSEA, Verified 01/19/18 11:33 DIZZINESS Wnyeiwb-Vlo-Npv Reductase AdvReac Mild WEAK Verified 01/19/18 11:33 Inhibitor MUSCLES [[id number] REDUCTASE INHIBITOR] clonidine [CLONIDINE] AdvReac Unknown NO Verified 01/19/18 11:33 ALLERGY, DO NOT USE R/T BETA SVETLANA hyoscyamine [HYOSCYAMINE] AdvReac Unknown PARANOIA, Verified 01/19/18 11:33 LEF JERKING, ANXIETY, NAUSEA W/I MINUTES Review of Systems Review of Systems ROS Unobtainable: All systems reviewed & are unremarkable except as noted in HPI and below Cardiovascular Reports chest pain, Reports chest pain at rest, Reports chest pain with activity, Reports diaphoresis (with exertion), Denies syncope, Reports edema (lower extremities.), Denies irregular heart rhythm (but hx of afib.), Reports lightheadedness, Reports radiating jaw, neck or arm pain (left arm/neck), Reports dyspnea (chronically), Reports dyspnea on exertion (newer and worsening.) and Reports orthopnea Respiratory Denies change in phlegm color, Denies chest congestion, Denies cough, Denies ex cessive phlegm production, Reports dyspnea (chronically) and Reports dyspnea on exertion (newer and worsening.) Gastrointestinal Gastrointestinal: Denies abdominal pain, Denies change in bowel habits, Denies diarrhea, Reports nausea (with chest pain/sob) and Denies vomiting Genitourinary Denies hematuria, Denies flank pain and Denies urinary urgency Integumentary/Breasts Denies rash Neurologic Denies syncope [facility] Medical History (Updated 01/08/19 @ 15:27 by Saira Mccullough DO) Neck pain, chronic (Chronic) Cervical spinal stenosis (Chronic) Achalasia (Chronic) Coronary artery disease (Acute) Atrial fibrillation (Chronic) Hypertension (Chronic) Chronic obstructive pulmonary disease (Chronic 10/23/16) COPD (chronic obstructive pulmonary disease) (Chronic) Coronary artery disease (Chronic) Surgical History (Updated 01/08/19 @ 13:54 by Saira Mccullough DO) History of heart bypass surgery (10/23/16) H/O arthroscopic knee surgery (Chronic) H/O cardiac radiofrequency ablation (Chronic) Family History Mother Stroke Social History (Updated 01/08/19 @ 13:54 by Saira Mccullough DO) Smoking Status: Former smoker alcohol intake: current substance use type: does not use Family History Mother Stroke Social History (Updated 01/08/19 @ 13:54 by Saira Mccullough DO) Smoking Status: Former smoker alcohol intake: current substance use type: does not use Exam Narrative Exam Narrative: GENERAL: Alert and oriented x three, obese, well-appearing male in no acute distress. HEENT: Head normocephalic, atraumatic, EOMI, pupils reactive, face symmetric, moist mucous membranes NECK: Supple, full range of motion CARDIOVASCULAR: Regular rate and rhythm without murmurs, rubs or gallops. No JVD. No edema bilateral lower extremities. RESPIRATORY: Breath sounds equal bilaterally, no wheezes, no rhonchi. Crackles bilaterally. No accessory muscle use or tachypnea. ABDOMEN: Soft, nontender. Normoactive bowel sounds all 4 quadrants. No guarding or rebound, rigidity, no mass : No CVA tenderness EXTREMITIES: Normal range of motion, no clubbing or edema. 2+ pulses upper and lower extremities. Neurovascularly intact NEUROLOGICAL: Cranial nerves II through XII grossly intact. Moving all extremities SKIN: Warm, dry, no petechiae, no rashes or lesions. Initial Vital Signs Initial Vital Signs: Vital Signs Temperature 98.6 F 01/08/19 12:58 Pulse Rate 95 H 01/08/19 12:58 Respiratory Rate 19 01/08/19 12:58 Blood Pressure 162/75 H 01/08/19 12:58 Pulse Oximetry 94 01/08/19 12:58 Scores HEART Score Heart Score history: Highly Suspicious Heart Score EKG: Non-Specific repolarization disturbance Heart Score Age: > or = 65 years old Heart Score risk factors: > 3 risk factors or hx of atherosclerotic disease Heart Score troponin: < or = to normal limit Heart Score Total: 7 Course Orders Ordered: ED Orders 01/08/19 12:50 EKG-12 Lead Stat 01/08/19 13:03 B Type Natriuretic Peptide Stat Complete Blood Count AUTO DIFF Stat Comprehensive Metabolic Panel Stat Lipase Stat Partial Thromboplastin Time Stat Prothrombin Time INR Stat Troponin & CK Cardiac Panel Stat 01/08/19 13:20 XR chest 1V Stat 01/08/19 15:18 EKG-12 Lead Stat 01/08/19 15:25 Troponin & CK Cardiac Panel Stat Nitroglycerin (Nitrostat) 0.4 mg SL [id number] PRN PRN Reason: Chest Pain Last Admin: 01/08/19 14:20 Dose: 0.4 mg Admin: 01/08/19 13:56 Dose: 0.4 mg Discontinued Medications Aspirin (Aspirin Chew) 324 mg PO NOW ONE Stop: 01/08/19 13:31 Last Admin: 01/08/19 13:57 Dose: 324 mg Isosorbide Mononitrate (Imdur) 30 mg PO NOW ONE Stop: 01/08/19 15:18 Last Admin: 01/08/19 15:22 Dose: 30 mg Oxycodone/Acetaminophen (Percocet 5/325) 1 tab PO NOW ONE Stop: 01/08/19 14:55 Last Admin: 01/08/19 15:08 Dose: 1 tab Vital Signs - 8 hr 01/08/19 12:58 01/08/19 13:21 01/08/19 13:56 Temperature 98.6 F Pulse Rate 95 H 91 H 87 Respiratory Rate 19 18 Blood Pressure 162/75 H 119/71 Blood Pressure [Left Arm] 133/78 Pulse Oximetry 94 92 01/08/19 14:05 01/08/19 14:07 01/08/19 14:15 Temperature Pulse Rate 89 84 92 H Respiratory Rate 20 Blood Pressure 88/61 L 72/53 L Blood Pressure [Left Arm] 130/68 Pulse Oximetry 95 01/08/19 14:20 01/08/19 15:08 01/08/19 15:30 Temperature Pulse Rate 85 79 80 Respiratory Rate 19 21 Blood Pressure 130/68 Blood Pressure [Left Arm] 109/65 122/62 Pulse Oximetry 96 96 MDM - Chest Pain Lab Data Result diagrams: 01/08/19 13:03 01/08/19 13:03 Lab Results 01/08/19 01/08/19 01/08/19 Range/Units 13:03 13:03 13:03 WBC 5.9 (4.5-11.0) X10^3/uL RBC 4.67 (4.5-5.9) X10^6/uL Hgb 14.9 (13.5-17.5) g/dL Hct 43.1 (41-53) % MCV 92.3 (80-100) fL MCH 31.9 (26-34) PG MCHC 34.6 (30-36) % RDW 13.3 (11.6-14.8) % Plt Count 199 (150-400) X10^3/uL Neut % (Auto) 60.6 (50-75) % Lymph % (Auto) 24.6 L (25-40) % [place] % (Auto) 8.2 (3-14) % Eos % (Auto) 5.6 H (2-4) % Baso % (Auto) 1.0 (0-2) % Neut # (Auto) 3600 (1051-4434) /uL Lymph # (Auto) 1400 (0293-4120) /uL [place] # (Auto) 500 (0-900) /uL Eos # (Auto) 300 (0-450) /uL Baso # (Auto) 100 (0-100) /uL PT 11.7 (10.1-12.7) SECONDS INR 1.0 (0.9-1.3) APTT 32 D (26.4-36.2) SECONDS Sodium 139 (137-145) mmol/L Potassium 3.5 (3.4-5.1) mmol/L Chloride 98 (98-107) mmol/L Carbon Dioxide 29 (22-32) mmol/L BUN 22 H (9-20) mg/dL Creatinine 1.00 (0.66-1.25) mg/dL Estimated GFR > 60.0 (>60) mL/min BUN/Creatinine Ratio 22.0 (6-22) Glucose 214 H (80-110) mg/dL Calcium 8.8 (8.4-10.2) mg/dL Total Bilirubin 0.7 (0.2-1.3) mg/dL AST 37 (17-59) IU/L ALT 37 (21-72) IU/L Alkaline Phosphatase 69 (38-126) U/L Total Creatine Kinase 170 (55-170) U/L CK-MB (CK-2) 1.59 (<2.37) ng/mL CK-MB (CK-2) Rel Index 0.9 L (1.5-5.0) % Troponin I < 0.012 (0.01-0.034) ng/mL B-Natriuretic Peptide (<100) Total Protein 7.0 (6.3-8.2) g/dL Albumin 4.2 (3.5-5.0) g/dL Globulin 2.8 (1.7-4.1) g/dL Albumin/Globulin Ratio 1.5 (1.0-2.8) Lipase 86 (23-300) U/L 01/08/19 01/08/19 Range/Units 13:03 15:25 WBC (4.5-11.0) X10^3/uL RBC (4.5-5.9) X10^6/uL Hgb (13.5-17.5) g/dL Hct (41-53) % MCV (80-100) fL MCH (26-34) PG MCHC (30-36) % RDW (11.6-14.8) % Plt Count (150-400) X10^3/uL Neut % (Auto) (50-75) % Lymph % (Auto) (25-40) % [place] % (Auto) (3-14) % Eos % (Auto) (2-4) % Baso % (Auto) (0-2) % Neut # (Auto) (2695-9700) /uL Lymph # (Auto) (7786-3125) /uL [place] # (Auto) (0-900) /uL Eos # (Auto) (0-450) /uL Baso # (Auto) (0-100) /uL PT (10.1-12.7) SECONDS INR (0.9-1.3) APTT (26.4-36.2) SECONDS Sodium (137-145) mmol/L Potassium (3.4-5.1) mmol/L Chloride (98-107) mmol/L Carbon Dioxide (22-32) mmol/L BUN (9-20) mg/dL Creatinine (0.66-1.25) mg/dL Estimated GFR (>60) mL/min BUN/Creatinine Ratio (6-22) Glucose (80-110) mg/dL Calcium (8.4-10.2) mg/dL Total Bilirubin (0.2-1.3) mg/dL AST (17-59) IU/L ALT (21-72) IU/L Alkaline Phosphatase (38-126) U/L Total Creatine Kinase 152 (55-170) U/L CK-MB (CK-2) 1.43 (<2.37) ng/mL CK-MB (CK-2) Rel Index 0.9 L (1.5-5.0) % Troponin I < 0.012 (0.01-0.034) ng/mL B-Natriuretic Peptide < 100 (<100) Total Protein (6.3-8.2) g/dL Albumin (3.5-5.0) g/dL Globulin (1.7-4.1) g/dL Albumin/Globulin Ratio (1.0-2.8) Lipase (23-300) U/L Imaging Data Chest x-ray: Radiologist's impression: [address] [address] XRay Report Signed Patient: Karthikeyan Yo DMR#: [id number] : 5Acct:[id number] Age/Sex: 73 / MDate of Service: 01/08/19 Loc: ED Accession Number: [id number] Procedure: XR chest 1V Ordering Provider: Saira Mccullough D.O. PROCEDURE: XR CHEST 1V INDICATIONS: chest pain TECHNIQUE: One view of the chest was acquired. COMPARISON: [facility], CT, CT CHEST WO CON, 12/23/2018, 10:07. [facility], CR, XR CHEST 2V, 10/17/2018, 12:38. FINDINGS: Surgical changes and devices: Postoperative changes of the cervical spine and sternum are present, similar to the prior study, but not adequately evaluated. Lungs and pleura: Linear areas of increased density at the left lung base are present, which are new since the previous study. There may be minimal consolidation of the lungs within the bilateral infrahilar regions. No large effusion or pneumothorax is appreciated. Mediastinum: Mediastinal contours appear normal. Heart size is normal. There appears to be aortic atherosclerosis. Bones and chest wall: No suspicious bony lesions. Widening of the left acromioclavicular joint is unchanged and may be postoperative. Overlying soft tissues appear unremarkable. IMPRESSION: 1. Minimal scarring versus atelectasis at the left lung base. 2. Possible developing infrahilar airspace disease. This may represent atelectasis versus pneumonia. Please correlate clinically. Dictated by: Gerry Alvarez M.D. on 01/08/2019 at 12:43 Approved by: Gerry Alvarez M.D. on 01/08/2019 at 12:44 ECG Data Attestation: I personally reviewed and interpreted this ECG as follows: Prior ECG tracings: available for review Interpretation: Sinus rhythm rate 86 P are 182 QRS of 92 QTC of 439. No ST elevation or depression. Patient does have a Q-wave in 3 and AVF. Rate is 86 P are is 182 QRS is 92 and QTC is 439. Patient has prior EKG from 11/15/2018 and appears similar. EKG 2. Shows sinus rhythm sinus rhythm the rate 86 P are 178 QRS of 93 QTC 437. Patient has a Q-wave in 3 and AVF. Appears similar to prior. MDM Narrative Medical decision making narrative: Had discussed with patient it sounds like he has angina. Distally was discussing observation or transfer to [place] for evaluation a little bit faster than Wednesday. Patient is pretty adamant he does not want to spend the night in the hospital. We discussed his lab work, chest x-ray he was given aspirin and nitro sublingual. Nitro SL, patients symptoms improved after nitro but blood pressure drops. He states he has some of his usual osteoarthritic changes in his joints including his hips and ask for a Percocet. Discussed with patient I would like to observe patient overnight here or at [place] if his computer support specialist prefers although no new EKG changes or elevation in troponin his story is concerning. Spoke with Dr. Palacio. He agrees patient should stay either here or [place] and get stress tested, we discussed patient is adamant that he does not wish to stay. He would recommend patient Imdur 30mg. Patient call in the morning, if patient is scheduled for stress testing on Wednesday he has likely been improved and they might be able to move it up earlier this week although unlikely for Wednesday. Discussed with patient I discussed that I do not recommend that he goes Cardiology does not recommend he goes home. He is willing to stay after receiving Imdur to make sure his blood pressure is appropriate and he was willing to stay for at least a 2nd troponin. Patient did have some recurrence of his chest discomfort when he walked to the bathroom. I discussed that there is a risk that he could if he goes home and does not stay in the hospital. He expresses his understanding and states that some of the complication is from his she has not gotten along with nursing staff in the past and it has been quite unpleasant. He also asked for a short course of pain medication for because if he goes to the cardiology office tomorrow he will miss his primary care appointment. Discharge Plan Departure Patient Disposition: Left Against Medical Advice Clinical Impression: ACS (acute coronary syndrome) Instructions: Acute Coronary Syndrome Activity Restrictions/Additional Instructions: I suspect that you have poor blood flow to your heart, I do not recommend that you go home today. I recommend that you stay in the hospital for treatment and observation overnight either here at [facility] or [place]. This is also the recommendation of your computer support specialist. Continue your home medications as prescribed. Including your aspirin 324mg daily. Take Imdur 30mg ER once daily. You received the first dose in the ER. Return to the ER at any time for worsening symptoms, passing out, lightheadedness, recurrent chest pain, shortness of breath, if you are sweaty or clammy, abdominal pain, new swelling in your legs or other new or concerning symptoms. Prescriptions: New isosorbide mononitrate 30 mg tablet extended release 24 hr 30 mg PO DAILY Qty: 20 RF: 0 No Action multivitamin [Multiple Vitamins] 1 EACH tablet 1 tab PO DAILY Qty: 0 RF: 0 furosemide 20 MG tablet 20 mg DAILY PRN (Reason: Edema) Qty: 0 RF: 0 aspirin 325 MG tablet,delayed release (DR/EC) 325 mg PO BEDTIME Qty: 0 RF: 0 fluticasone propionate 16 GM spray,suspension 1 spray Intranasal BID Qty: 0 RF: 0 loratadine [Claritin Liqui-Gel] 10 MG capsule 10 mg PO DAILY Qty: 0 RF: 0 Spiriva Respimat 1 puff Inhalation DIRECTED RF: 0 Symbicort 1 puff Inhalation DIRECTED RF: 0 acetaminophen-codeine 300-30 mg tablet 1 tab PO Q4-6H PRN (Reason: Pain) RF: 0 trazodone 100 mg tablet 400 tab PO BEDTIME RF: 0 Co Q-10 2 cap PO DAILY RF: 0 krill oil 1 cap PO DAILY RF: 0 levalbuterol tartrate [Xopenex HFA] 45 mcg/actuation HFA aerosol inhaler 1 puff INHALATION Q4-6H PRN (Reason: shortness of breath or wheezing) Qty: 15 RF: 0 metoprolol tartrate 100 mg tablet 100 mg PO BID RF: 0 levalbuterol HCl 1.25 mg/3 mL solution for nebulization 3 ml Inhalation Q6H PRN (Reason: Shortness Of Breath) RF: 0 Referrals: Binu Ac MD [Primary Care Provider] - Yogesh Jacobs MD [Non-Staff] - Stand Alone Forms: Against Medical Advice
[2019-01-08 13:31] LABS: PTT Partial Thromboplastin Tim 32 SECONDS (26.4-36.2)
[2019-01-08 13:32] LABS: Alanine Aminotransferase 37 IU/L (21-72); Albumin 4.2 g/dL (3.5-5.0); Albumin Globulin Ratio 1.5 (1.0-2.8); Alkaline Phosphatase 69 U/L (38-126); Aspartate Aminotransferase 37 IU/L (17-59); Bilirubin Total 0.7 mg/dL (0.2-1.3); Blood Urea Nitrogen 22 mg/dL (9-20); Calcium 8.8 mg/dL (8.4-10.2); Carbon Dioxide 29 mmol/L (22-32); Chloride 98 mmol/L (98-107); Creatine Kinase 170 U/L (55-170); Estimated Glomerular Filt Rate > 60.0 mL/min (>60); Globulin 2.8 g/dL (1.7-4.1); Glucose 214 mg/dL (80-110); HEMOLYSIS < 15 (0-50); Lipase 86 U/L (23-300); Potassium 3.5 mmol/L (3.4-5.1); Sodium 139 mmol/L (137-145)
[2019-01-08 13:34] LABS: Add Manual Diff / Slide Review NO; Basophils Absolute Auto 100 /uL (0-100); Eosinophils Absolute Auto 300 /uL (0-450); Eosinophils Percent Auto 5.6 % (2-4); Hematocrit 43.1 % (41-53); Hemoglobin 14.9 g/dL (13.5-17.5); Lymphocytes Absolute Auto 1400 /uL (1100-4500); Lymphocytes Percent Auto 24.6 % (25-40); Mean Corpuscular HGB Conc 34.6 % (30-36); Mean Corpuscular Hemoglobin 31.9 PG (26-34); Mean Corpuscular Volume 92.3 fL (80-100); Monocytes Absolute Auto 500 /uL (0-900); Monocytes Percent Auto 8.2 % (3-14); Neutrophils Absolute Auto 3600 /uL (1500-7000); Neutrophils Percent Auto 60.6 % (50-75); Platelet Count 199 X10^3/uL (150-400); Red Blood Cell Count 4.67 X10^6/uL (4.5-5.9); Red Cell Distribution Width 13.3 % (11.6-14.8); White Blood Cell Count 5.9 X10^3/uL (4.5-11.0)
[2019-01-08 13:44] LABS: Troponin I < 0.012 ng/mL (0.01-0.034)
[2019-01-08 13:47] LABS: CKMB % Relative Index 0.9 % (1.5-5.0); Creatine Kinase MB 1.59 ng/mL (<2.37)
[2019-01-08] MEDS: NITROGLYCERIN 0.4 MG SL TAB SL ×2 (13:56→14:20)
[2019-01-08] MEDS: ASPIRIN 81 MG TAB 324 MG PO (13:57)
[2019-01-08 14:56] LABS: B Type Natriuretic Peptide < 100 (<100)
[2019-01-08] MEDS: OXYCODONE/ACETAMINOPHEN 5/325 TABLET 1 TAB PO (15:08)
[2019-01-08] MEDS: ISOSORBIDE MONONITRATE ER 30 MG TABLET PO (15:22)
[2019-01-08 15:40] LABS: Creatine Kinase 152 U/L (55-170)
[2019-01-08 15:53] LABS: Troponin I < 0.012 ng/mL (0.01-0.034)
[2019-01-08 15:55] LABS: CKMB % Relative Index 0.9 % (1.5-5.0); Creatine Kinase MB 1.43 ng/mL (<2.37)
== END 2019-01-08 16:16 | disposition left against medical advice (07) ==
PROVIDERS: Emergency Provider Emergency Medicine; PCP Internal Medicine
DX: I24.9 Acute ischemic heart disease, unspecified (principal); Z53.20 Procedure and treatment not carried out because of patient's decision for unspecified reasons
CPT/HCPCS: 36415; 36591; 71045; 80053; 82550; 82553; 83690; 83880; 84484; 85025; 85610; 85730; 93005; 99283; 99285

== ENCOUNTER → 2019-02-22 10:44 | Outpatient (CLI) | payer OTHER, SELFPAY ==
--- NOTE | 2019-02-22 | DI.RAD.S_ITS ---
PROCEDURE: FL BARIUM SWALLOW INDICATIONS: Chronic obstructive pulmonary disease, unspecified COMPARISON: None. FINDINGS: Function: Tertiary contractions of distal esophageal wall muscles are noted. Sceh-yb-pbarksld spontaneous and elicited gastroesophageal reflux is seen during the study. There is normal transit of a calibrated barium tablet through the esophagus into the stomach. Patient also reported possible aspiration during the study although no definite contrast aspiration is noted under fluoroscopic evaluation. Morphology: Air-contrast images demonstrate normal mucosal morphology. Single contrast views show no esophageal strictures, extrinsic mass effects, or diverticula. Limited images of the stomach demonstrate normal appearance. IMPRESSION: 1. Tertiary contraction of distal esophageal wall muscle, consistent with esophageal wall muscle motility disorder. Mild to moderate elicited gastroesophageal reflux. No gross ulceration. No esophageal wall structure. 2. Patient reported sensation of aspiration during this study. Suggest speech pathology evaluation. Dictated by: Reji Starr M.D. on 02/22/2019 at 12:16 Approved by: Reji Starr M.D. on 02/22/2019 at 12:18
== END ==
PROVIDERS: PCP Internal Medicine; Visit Provider Internal Medicine
DX: R13.10 Dysphagia, unspecified (principal); J44.9 Chronic obstructive pulmonary disease, unspecified; K21.9 Gastro-esophageal reflux disease without esophagitis
CPT/HCPCS: 74220

== ENCOUNTER → 2019-03-08 10:29 | Outpatient (CLI) | payer OTHER, SELFPAY ==
--- NOTE | 2019-03-08 | DI.US.S_ITS ---
PROCEDURE: US CAROTID DOPPLER BI INDICATIONS: CAD TECHNIQUE: Color and pulse Doppler interrogation was performed of both carotid systems, with image documentation and velocity measurements. COMPARISON: None. FINDINGS: Stenosis calculations are based on SRU (Society of Radiologists in Ultrasound) criteria. The flow velocities and the arterial waveforms are normal within both carotid arterial systems. Atherosclerotic plaque is seen on both sides. The estimated degree of internal carotid artery stenosis is less than 50%. Antegrade flow is confirmed within both vertebral arteries. IMPRESSION: No hemodynamically significant stenosis is seen. Atherosclerotic plaque is noted bilaterally. Dictated by: Arnie Cook M.D. on 03/08/2019 at 12:38 Approved by: Arnie Cook M.D. on 03/08/2019 at 12:39
== END ==
PROVIDERS: PCP Internal Medicine; Visit Provider Internal Medicine Cardiovascular Disease
DX: I25.119 Atherosclerotic heart disease of native coronary artery with unspecified angina pectoris (principal); I65.23 Occlusion and stenosis of bilateral carotid arteries
CPT/HCPCS: 93880

== ENCOUNTER 2019-03-11 05:02 | Emergency (ER) | payer OTHER, SELFPAY ==
[2019-03-11] VITALS (7 sets, daily range): BP systolic 105–141; BP diastolic 53–70; PULSE 65–73; RESP 15–18; TEMP 36.3; O2SAT 96–98; BMI 31.6
--- NOTE | 2019-03-11 05:04 | ED.CHESTPAIN ---
HPI - Chest Pain General Chief Complaint: Chest Pain Stated Complaint: has angina pain in chest back nausea Time Seen by Provider: 03/11/19 05:04 Source: patient and family Mode of arrival: ambulatory Limitations: no limitations History of Present Illness HPI narrative: 74-year-old male former smoker with extensive cardiac history including a bypass presents with his in the chief complaint of chest pain which started yesterday afternoon. Patient states that he was doing some work at the house and lifted heavy object when he started developing some pain in his back which then radiated to his chest. He states the pain feels like prior cardiac pain and he had associated nausea and diaphoresis. He states the pain was made worse with exertion and improved with rest. He has had 4 nitro over the course of the day, most recently about 1 hour ago any states the nitro improves it. The pain is heavy and pressure-like. He states that it is most intense the pain was an 8/10 and it is currently about a 6/10. Recently had extensive cardiac evaluation at [facility] in [place]. complaint: chest pain Onset (ago): hour(s) Duration: intermittent Onset: during exertion Pain location: right chest Severity: severe Quality: tightness and aching Pain radiation: back Relieving factors: nitroglycerin and rest Exacerbating factors: exertion Associated symptoms: nausea and diaphoresis Treatments prior to arrival chest pain: aspirin and nitroglycerin Related Data Home Medications Medication Instructions Recorded Confirmed multivitamin [Multiple Vitamins] 1 tab PO DAILY #0 12/21/16 11/15/18 furosemide 20 mg DAILY PRN #0 08/11/17 11/15/18 aspirin 325 mg PO BEDTIME #0 11/03/17 11/15/18 fluticasone propionate 1 spray INTRANASAL BID #0 11/03/17 11/15/18 loratadine [Claritin Liqui-Gel] 10 mg PO DAILY #0 11/03/17 11/15/18 acetaminophen-codeine 1 tab PO Q4-6H PRN 12/10/17 11/15/18 trazodone 400 tab PO BEDTIME 12/10/17 11/15/18 Co Q-10 2 cap PO DAILY 01/19/18 11/15/18 krill oil 1 cap PO DAILY 01/19/18 11/15/18 levalbuterol HCl 3 ml INHALATION Q6H PRN 10/17/18 11/15/18 metoprolol tartrate 100 mg PO BID 10/17/18 11/15/18 Spiriva Respimat 1 puff INHALATION DIRECTED 11/15/18 11/15/18 Symbicort 1 puff INHALATION DIRECTED 11/15/18 11/15/18 Previous Rx's Medication Instructions Recorded levalbuterol tartrate [Xopenex HFA] 1 puff INHALATION Q4-6H PRN #15 06/23/18 gram isosorbide mononitrate 30 mg PO DAILY #20 tab 01/08/19 Allergies Allergy/AdvReac Type Severity Reaction Status Date / Time celecoxib [CELECOXIB] Allergy Mild SWELLING Verified 01/19/18 11:33 latex [LATEX] Allergy Mild RASH Verified 01/19/18 11:33 W/EXTENDED EXPOSURE morphine [MORPHINE] Allergy Mild Verified 01/19/18 11:33 Sulfa (Sulfonamide Allergy Mild RASH Verified 01/19/18 11:33 Antibiotics) [SULFA (SULFONAMIDE ANTIBIOTICS)] varenicline [VARENICLINE] Allergy Unknown Verified 01/19/18 11:33 oxycodone [OXYCODONE] AdvReac Severe HX Verified 01/19/18 11:33 ADSICTION, PT WANTS TO AVOID tramadol [TRAMADOL] AdvReac Severe HX Verified 01/19/18 11:33 ADDICTION, DOES NOT WANT TO TAKE buprenorphine [BUPRENORPHINE] AdvReac Mild NAUSEA, Verified 01/19/18 11:33 DIZZINESS Xqhislq-Jws-Kcc Reductase AdvReac Mild WEAK Verified 01/19/18 11:33 Inhibitor MUSCLES [[id number] REDUCTASE INHIBITOR] clonidine [CLONIDINE] AdvReac Unknown NO Verified 01/19/18 11:33 ALLERGY, DO NOT USE R/T BETA SVETLANA hyoscyamine [HYOSCYAMINE] AdvReac Unknown PARANOIA, Verified 01/19/18 11:33 LEF JERKING, ANXIETY, NAUSEA W/I MINUTES Review of Systems Constitutional Denies chills, Denies fever(s), Denies lethargy and Denies weakness Eyes Denies change in vision, Denies eye discharge, Denies irritation and Denies loss of vision ENT Ears, Nose, Mouth, and Throat: Denies change in voice, Denies neck pain and Denies sore throat Cardiovascular Reports chest pain, Denies irregular heart rhythm, Denies lightheadedness, Denies palpitations, Denies dyspnea, Denies dyspnea on exertion and Denies orthopnea Respiratory Denies cough, Denies dyspnea, Denies dyspnea on exertion and Denies wheezing Gastrointestinal Gastrointestinal: Denies abdominal pain, Denies change in bowel habits, Denies diarrhea, Denies nausea and Denies vomiting Genitourinary Denies hematuria, Denies flank pain, Denies urinary incontinence and Denies urinary urgency Musculoskeletal Denies neck pain Integumentary/Breasts Denies pruritus, Denies erythema, Denies rash and Denies wounds Neurologic Denies confusion, Denies loss of vision and Denies weakness Psychiatric Denies anxiety, Denies confusion, Denies depression, Denies homicidal ideation and Denies suicidal ideation Endocrine Denies palpitations Hematologic/Lymphatic Denies easy bruising Allergic/Immunologic Denies wheezing [facility] Social History Smoking Status: Former smoker alcohol intake: current substance use type: does not use Exam Narrative Exam Narrative: GENERAL: 74-year-old male appears stated age This is a well-nourished, well-developed patient, in mild distress. HEAD: Atraumatic. Normocephalic. No temporal or scalp tenderness. EYES: Pupils equal round and reactive. Extraocular motions intact. No scleral icterus. No injection or drainage. ENT: Nose without bleeding, purulent drainage or septal hematoma. Throat without erythema, tonsillar hypertrophy or exudate. Uvula midline. Airway patent. NECK: Trachea midline. No JVD or lymphadenopathy. Supple, nontender, no meningeal signs. CARDIOVASCULAR: Regular rate and rhythm without murmurs, gallops, or rubs. RESPIRATORY: Clear to auscultation. Breath sounds equal bilaterally. No wheezes, rales, or rhonchi. GASTROINTESTINAL: Abdomen soft, non-tender, nondistended. No hepato-splenomegaly, or palpable masses. No guarding. EXTREMITIES: No clubbing, cyanosis, or edema. No joint tenderness, effusion, or edema noted. BACK: Nontender without deformity or crepitance. No flank tenderness. NEURO: AOx3. SKIN: No rash or erythema. Initial Vital Signs Initial Vital Signs: Vital Signs Temperature 97.4 F L 03/11/19 05:10 Pulse Rate 73 03/11/19 05:10 Respiratory Rate 15 03/11/19 05:10 Blood Pressure 128/64 03/11/19 05:10 Pulse Oximetry 98 03/11/19 05:10 Course Orders Ordered: Discontinued Medications Acetaminophen (Tylenol) 975 mg PO NOW ONE Stop: 03/11/19 05:51 Last Admin: 03/11/19 05:56 Dose: 975 mg Sodium Chloride (Normal Saline 0.9%) 1,000 mls @ 150 mls/hr IV CONT LAUREN Last Infusion: 03/11/19 07:24 Dose: 0 mls/hr Admin: 03/11/19 05:34 Dose: 150 mls/hr Morphine Sulfate (Morphine) 4 mg IV NOW ONE Stop: 03/11/19 05:45 Last Admin: 03/11/19 05:48 Dose: 4 mg Nitroglycerin (Nitrostat) 0.4 mg SL [id number] PRN PRN Reason: Chest Pain Last Admin: 03/11/19 05:34 Dose: 0.4 mg Ondansetron HCl (Zofran) 4 mg IV NOW ONE Stop: 03/11/19 05:51 Last Admin: 03/11/19 05:56 Dose: 4 mg Reevaluation(s) Reevaluation #1: no change after nitro. patient already took his morning meds including Metoprolol 100mg PO and ASA 325 Morphine 4mg IV takes pain nearly completely away call to [place], still no records. Call to Cardiology to discuss. Consultations Consultation #1: call to cardio at in [place]. Extensive review of records including a clean cath, cardiac MRI, and echo were performed 2 months ago. No recommendations for altering meds, needs follow up and return precautions additional discussion with [facility] whom share the same opinion Vital Signs - 8 hr 03/11/19 05:10 03/11/19 05:34 03/11/19 05:58 Temperature 97.4 F L Pulse Rate 73 72 70 Respiratory Rate 15 Blood Pressure 128/64 141/69 H 105/53 L Blood Pressure [Left Arm] Pulse Oximetry 98 03/11/19 06:24 Temperature Pulse Rate 71 Respiratory Rate 16 Blood Pressure Blood Pressure [Left Arm] 131/61 Pulse Oximetry 96 MDM - Chest Pain Lab Data Result diagrams: 03/11/19 05:33 03/11/19 05:33 Lab Results 03/11/19 03/11/1903/11/19 Range/Units 05:33 05:33 05:33 WBC 7.6 (4.5-11.0) X10^3/uL RBC 4.44 L (4.5-5.9) X10^6/uL Hgb 14.1 (13.5-17.5) g/dL Hct 41.6 (41-53) % MCV 93.7 (80-100) fL MCH 31.7 (26-34) PG MCHC 33.8 (30-36) % RDW 13.8 (11.6-14.8) % Plt Count 198 (150-400) X10^3/uL Neut % (Auto) 55.6 (50-75) % Lymph % (Auto) 25.2 (25-40) % [place] % (Auto) 10.7 (3-14) % Eos % (Auto) 7.4 H (2-4) % Baso % (Auto) 1.1 (0-2) % Neut # (Auto) 4300 (4886-9184) /uL Lymph # (Auto) 1900 (3624-5762) /uL [place] # (Auto) 800 (0-900) /uL Eos # (Auto) 600 H (0-450) /uL Baso # (Auto) 100 (0-100) /uL D-Dimer (<230) ng/mL Sodium 139 (137-145) mmol/L Potassium 3.9 (3.4-5.1) mmol/L Chloride 103 (98-107) mmol/L Carbon Dioxide 26 (22-32) mmol/L BUN 13 (9-20) mg/dL Creatinine 0.90 (0.66-1.25) mg/dL Estimated GFR > 60.0 (>60) mL/min BUN/Creatinine Ratio 14.4 (6-22) Glucose 123 H (80-110) mg/dL Calcium 8.9 (8.4-10.2) mg/dL Total Bilirubin 0.4 (0.2-1.3) mg/dL AST 30 (17-59) IU/L ALT 25 (21-72) IU/L Alkaline Phosphatase 95 (38-126) U/L Total Creatine Kinase 167 (55-170) U/L CK-MB (CK-2) 2.79 H (<2.37) ng/mL CK-MB (CK-2) Rel Index 1.7 (1.5-5.0) % Troponin I < 0.012 (0.01-0.034) ng/mL B-Natriuretic Peptide < 100 (<100) Total Protein 7.0 (6.3-8.2) g/dL Albumin 4.1 (3.5-5.0) g/dL Globulin 2.9 (1.7-4.1) g/dL Albumin/Globulin Ratio 1.4 (1.0-2.8) Lipase 260 (23-300) U/L 03/11/19 03/11/19 Range/Units 05:33 07:15 WBC (4.5-11.0) X10^3/uL RBC (4.5-5.9) X10^6/uL Hgb (13.5-17.5) g/dL Hct (41-53) % MCV (80-100) fL MCH (26-34) PG MCHC (30-36) % RDW (11.6-14.8) % Plt Count (150-400) X10^3/uL Neut % (Auto) (50-75) % Lymph % (Auto) (25-40) % [place] % (Auto) (3-14) % Eos % (Auto) (2-4) % Baso % (Auto) (0-2) % Neut # (Auto) (3740-3338) /uL Lymph # (Auto) (2802-1792) /uL [place] # (Auto) (0-900) /uL Eos # (Auto) (0-450) /uL Baso # (Auto) (0-100) /uL D-Dimer 479 H (<230) ng/mL Sodium (137-145) mmol/L Potassium (3.4-5.1) mmol/L Chloride (98-107) mmol/L Carbon Dioxide (22-32) mmol/L BUN (9-20) mg/dL Creatinine (0.66-1.25) mg/dL Estimated GFR (>60) mL/min BUN/Creatinine Ratio (6-22) Glucose (80-110) mg/dL Calcium (8.4-10.2) mg/dL Total Bilirubin (0.2-1.3) mg/dL AST (17-59) IU/L ALT (21-72) IU/L Alkaline Phosphatase (38-126) U/L Total Creatine Kinase (55-170) U/L CK-MB (CK-2) (<2.37) ng/mL CK-MB (CK-2) Rel Index (1.5-5.0) % Troponin I < 0.012 (0.01-0.034) ng/mL B-Natriuretic Peptide (<100) Total Protein (6.3-8.2) g/dL Albumin (3.5-5.0) g/dL Globulin (1.7-4.1) g/dL Albumin/Globulin Ratio (1.0-2.8) Lipase (23-300) U/L Urine Dip Bedside Urine Glucose Negative Bedside Urine Bilirubin - Negative Bedside Urine Ketone - Negative Urine Specific [place] 1.020 Bedside Urine Occult Blood - Negative Bedside Urine pH 6.0 Bedside Urine Protein +/- 15 Bedside Urine Urobilinogen - Negative Bedside Urine Nitrite - Negative Bedside Urine Leukocytes - Negative Esterase ECG Data Attestation: I personally reviewed and interpreted this ECG as follows: Prior ECG tracings: available for review Interpretation: EKG #1 0505 - NSR, no ectopy. No ST segmental elevations or depressions. Rate 73. OR 183. QRS 102. QT 419 EKG #2 EKG #3 MDM Narrative Medical decision making narrative: 74-year-old male with extensive cardiac history presents with a concerning set of symptoms including chest pain with diaphoresis and nausea. He has 3 nonischemic EKGs. Initial troponin is unremarkable. Consultation with outside cardiology reveals a very extensive recent evaluation including heart catheterization which was unremarkable and required no intervention. Other diagnoses including pulmonary embolism considered but thought less likely given the negative age corrected dimer. Patient has had repeat enzymes and remains symptom-free. He has been given return precautions and had questions answered to his apparent satisfaction. Discharge Plan Departure Patient Disposition: Home Clinical Impression: Atypical chest pain Discharge Date/Time: 03/11/19 08:14 Interventions: ED Discharge Assessment Last Done: 03/11/19 08:12 Instructions: DI for Atypical Chest Pain Activity Restrictions/Additional Instructions: *You have been diagnosed with atypical chest pain. Heart attack thought to be unlikely given your recent very significant workup at [facility]. Your cardiology group is happy to see you in follow up. *What to do: *Take medications as directed *Follow up with your primary care provider in 2-3 days, call for an appointment. Let them know you were seen in the Emergency Department and that we ask that you be seen in follow up *Return to ER if you should have any new, worsening or concerning symptoms Prescriptions: No Action multivitamin [Multiple Vitamins] 1 EACH tablet 1 tab PO DAILY Qty: 0 RF: 0 furosemide 20 MG tablet 20 mg DAILY PRN (Reason: Edema) Qty: 0 RF: 0 aspirin 325 MG tablet,delayed release (DR/EC) 325 mg PO BEDTIME Qty: 0 RF: 0 fluticasone propionate 16 GM spray,suspension 1 spray Intranasal BID Qty: 0 RF: 0 loratadine [Claritin Liqui-Gel] 10 MG capsule 10 mg PO DAILY Qty: 0 RF: 0 Spiriva Respimat 1 puff Inhalation DIRECTED RF: 0 Symbicort 1 puff Inhalation DIRECTED RF: 0 acetaminophen-codeine 300-30 mg tablet 1 tab PO Q4-6H PRN (Reason: Pain) RF: 0 trazodone 100 mg tablet 400 tab PO BEDTIME RF: 0 Co Q-10 2 cap PO DAILY RF: 0 krill oil 1 cap PO DAILY RF: 0 levalbuterol tartrate [Xopenex HFA] 45 mcg/actuation HFA aerosol inhaler 1 puff INHALATION Q4-6H PRN (Reason: shortness of breath or wheezing) Qty: 15 RF: 0 metoprolol tartrate 100 mg tablet 100 mg PO BID RF: 0 levalbuterol HCl 1.25 mg/3 mL solution for nebulization 3 ml Inhalation Q6H PRN (Reason: Shortness Of Breath) RF: 0 isosorbide mononitrate 30 mg tablet extended release 24 hr 30 mg PO DAILY Qty: 20 RF: 0 Referrals: Binu Ac MD [Primary Care Provider] -
--- NOTE | 2019-03-11 05:14 | DI.RAD.S_ITS ---
PROCEDURE: XR CHEST 1V INDICATIONS: chest pain TECHNIQUE: One view of the chest was acquired. COMPARISON: [facility], CT, CT CHEST WO CON, 12/23/2018, 10:07. [facility], US, US CAROTID DOPPLER BI, 03/08/2019, 10:43. [facility], RF, [place] BARIUM SWALLOW, 02/22/2019, 10:55. [facility], CR, XR CHEST 1V, 01/08/2019, 13:29. FINDINGS: Surgical changes and devices: Cervical spine fixation hardware is seen. Post CABG changes are seen. Lungs and pleura: Lungs are clear. No pleural effusions or pneumothorax. Mediastinum: The cardiac contours are within normal limits. The aorta demonstrates calcification and tortuosity. Bones and chest wall: Age-appropriate bony degenerative changes are seen. No suspicious bony lesions. Overlying soft tissues appear unremarkable. IMPRESSION: Portable chest within normal limits. Postoperative and degenerative changes are seen. Dictated by: Arnie Cook M.D. on 03/11/2019 at 7:11 Approved by: Arnie Cook M.D. on 03/11/2019 at 7:14
--- NOTE | 2019-03-11 05:20 | ED_ITS ---
HPI - Chest Pain General Chief Complaint: Chest Pain Stated Complaint: has angina pain in chest back nausea Time Seen by Provider: 03/11/19 05:04 Source: patient and family Mode of arrival: ambulatory Limitations: no limitations History of Present Illness HPI narrative: 74-year-old male former smoker with extensive cardiac history including a bypass presents with his in the chief complaint of chest pain which started yesterday afternoon. Patient states that he was doing some work at the house and lifted heavy object when he started developing some pain in his back which then radiated to his chest. He states the pain feels like prior cardiac pain and he had associated nausea and diaphoresis. He states the pain was made worse with exertion and improved with rest. He has had 4 nitro over the course of the day, most recently about 1 hour ago any states the nitro improves it. The pain is heavy and pressure-like. He states that it is most intense the pain was an 8/10 and it is currently about a 6/10. Recently had extensive cardiac evaluation at [facility] in [place]. complaint: chest pain Onset (ago): hour(s) Duration: intermittent Onset: during exertion Pain location: right chest Severity: severe Quality: tightness and aching Pain radiation: back Relieving factors: nitroglycerin and rest Exacerbating factors: exertion Associated symptoms: nausea and diaphoresis Treatments prior to arrival chest pain: aspirin and nitroglycerin Related Data Home Medications Medication Instructions Recorded Confirmed multivitamin [Multiple Vitamins] 1 tab PO DAILY #0 12/21/16 11/15/18 furosemide 20 mg DAILY PRN #0 08/11/17 11/15/18 aspirin 325 mg PO BEDTIME #0 11/03/17 11/15/18 fluticasone propionate 1 spray INTRANASAL BID #0 11/03/17 11/15/18 loratadine [Claritin Liqui-Gel] 10 mg PO DAILY #0 11/03/17 11/15/18 acetaminophen-codeine 1 tab PO Q4-6H PRN 12/10/17 11/15/18 trazodone 400 tab PO BEDTIME 12/10/17 11/15/18 Co Q-10 2 cap PO DAILY 01/19/18 11/15/18 krill oil 1 cap PO DAILY 01/19/18 11/15/18 levalbuterol HCl 3 ml INHALATION Q6H PRN 10/17/18 11/15/18 metoprolol tartrate 100 mg PO BID 10/17/18 11/15/18 Spiriva Respimat 1 puff INHALATION DIRECTED 11/15/18 11/15/18 Symbicort 1 puff INHALATION DIRECTED 11/15/18 11/15/18 Previous Rx's Medication Instructions Recorded levalbuterol tartrate [Xopenex HFA] 1 puff INHALATION Q4-6H PRN #15 06/23/18 gram isosorbide mononitrate 30 mg PO DAILY #20 tab 01/08/19 Allergies Allergy/AdvReac Type Severity Reaction Status Date / Time celecoxib [CELECOXIB] Allergy Mild SWELLING Verified 01/19/18 11:33 latex [LATEX] Allergy Mild RASH Verified 01/19/18 11:33 W/EXTENDED EXPOSURE morphine [MORPHINE] Allergy Mild Verified 01/19/18 11:33 Sulfa (Sulfonamide Allergy Mild RASH Verified 01/19/18 11:33 Antibiotics) [SULFA (SULFONAMIDE ANTIBIOTICS)] varenicline [VARENICLINE] Allergy Unknown Verified 01/19/18 11:33 oxycodone [OXYCODONE] AdvReac Severe HX Verified 01/19/18 11:33 ADSICTION, PT WANTS TO AVOID tramadol [TRAMADOL] AdvReac Severe HX Verified 01/19/18 11:33 ADDICTION, DOES NOT WANT TO TAKE buprenorphine [BUPRENORPHINE] AdvReac Mild NAUSEA, Verified 01/19/18 11:33 DIZZINESS [id number]-Iwb Reductase AdvReac Mild WEAK Verified 01/19/18 11:33 Inhibitor MUSCLES [ORKBWHO-XMR-OCC REDUCTASE INHIBITOR] clonidine [CLONIDINE] AdvReac Unknown NO Verified 01/19/18 11:33 ALLERGY, DO NOT USE R/T BETA SVETLANA hyoscyamine [HYOSCYAMINE] AdvReac Unknown PARANOIA, Verified 01/19/18 11:33 LEF JERKING, ANXIETY, NAUSEA W/I MINUTES Review of Systems Constitutional Denies chills, Denies fever(s), Denies lethargy and Denies weakness Eyes Denies change in vision, Denies eye discharge, Denies irritation and Denies loss of vision ENT Ears, Nose, Mouth, and Throat: Denies change in voice, Denies neck pain and Denies sore throat Cardiovascular Reports chest pain, Denies irregular heart rhythm, Denies lightheadedness, Denies palpitations, Denies dyspnea, Denies dyspnea on exertion and Denies orthopnea Respiratory Denies cough, Denies dyspnea, Denies dyspnea on exertion and Denies wheezing Gastrointestinal Gastrointestinal: Denies abdominal pain, Denies change in bowel habits, Denies d iarrhea, Denies nausea and Denies vomiting Genitourinary Denies hematuria, Denies flank pain, Denies urinary incontinence and Denies urinary urgency Musculoskeletal Denies neck pain Integumentary/Breasts Denies pruritus, Denies erythema, Denies rash and Denies wounds Neurologic Denies confusion, Denies loss of vision and Denies weakness Psychiatric Denies anxiety, Denies confusion, Denies depression, Denies homicidal ideation and Denies suicidal ideation Endocrine Denies palpitations Hematologic/Lymphatic Denies easy bruising Allergic/Immunologic Denies wheezing [facility] Social History Smoking Status: Former smoker alcohol intake: current substance use type: does not use Exam Narrative Exam Narrative: GENERAL: 74-year-old male appears stated age This is a well- nourished, well-developed patient, in mild distress. HEAD: Atraumatic. Normocephalic. No temporal or scalp tenderness. EYES: Pupils equal round and reactive. Extraocular motions intact. No scleral icterus. No injection or drainage. ENT: Nose without bleeding, purulent drainage or septal hematoma. Throat without erythema, tonsillar hypertrophy or exudate. Uvula midline. Airway patent. NECK: Trachea midline. No JVD or lymphadenopathy. Supple, nontender, no meningeal signs. CARDIOVASCULAR: Regular rate and rhythm without murmurs, gallops, or rubs. RESPIRATORY: Clear to auscultation. Breath sounds equal bilaterally. No wheezes, rales, or rhonchi. GASTROINTESTINAL: Abdomen soft, non-tender, nondistended. No hepato- splenomegaly, or palpable masses. No guarding. EXTREMITIES: No clubbing, cyanosis, or edema. No joint tenderness, effusion, or edema noted. BACK: Nontender without deformity or crepitance. No flank tenderness. NEURO: AOx3. SKIN: No rash or erythema. Initial Vital Signs Initial Vital Signs: Vital Signs Temperature 97.4 F L 03/11/19 05:10 Pulse Rate 73 03/11/19 05:10 Respiratory Rate 15 03/11/19 05:10 Blood Pressure 128/64 03/11/19 05:10 Pulse Oximetry 98 03/11/19 05:10 Course Orders Ordered: Discontinued Medications Acetaminophen (Tylenol) 975 mg PO NOW ONE Stop: 03/11/19 05:51 Last Admin: 03/11/19 05:56 Dose: 975 mg Sodium Chloride (Normal Saline 0.9%) 1,000 mls @ 150 mls/hr IV CONT LAUREN Last Infusion: 03/11/19 07:24 Dose: 0 mls/hr Admin: 03/11/19 05:34 Dose: 150 mls/hr Morphine Sulfate (Morphine) 4 mg IV NOW ONE Stop: 03/11/19 05:45 Last Admin: 03/11/19 05:48 Dose: 4 mg Nitroglycerin (Nitrostat) 0.4 mg SL [id number] PRN PRN Reason: Chest Pain Last Admin: 03/11/19 05:34 Dose: 0.4 mg Ondansetron HCl (Zofran) 4 mg IV NOW ONE Stop: 03/11/19 05:51 Last Admin: 03/11/19 05:56 Dose: 4 mg Reevaluation(s) Reevaluation #1: no change after nitro. patient already took his morning meds including Metoprolol 100mg PO and ASA 325 Morphine 4mg IV takes pain nearly completely away call to [place], still no records. Call to Cardiology to discuss. Consultations Consultation #1: call to cardio at in [place]. Extensive review of records including a clean cath, cardiac MRI, and echo were performed 2 months ago. No recommendations for altering meds, needs follow up and return precautions additional discussion with [facility] whom share the same opinion Vital Signs - 8 hr 03/11/19 05:10 03/11/19 05:34 03/11/19 05:58 Temperature 97.4 F L Pulse Rate 73 72 70 Respiratory Rate 15 Blood Pressure 128/64 141/69 H 105/53 L Blood Pressure [Left Arm] Pulse Oximetry 98 03/11/19 06:24 Temperature Pulse Rate 71 Respiratory Rate 16 Blood Pressure Blood Pressure [Left Arm] 131/61 Pulse Oximetry 96 MDM - Chest Pain Lab Data Result diagrams: 03/11/19 05:33 03/11/19 05:33 Lab Results 03/11/19 03/11/19 03/11/19 Range/Units 05:33 05:33 05:33 WBC 7.6 (4.5-11.0) X10^3/uL RBC 4.44 L (4.5-5.9) X10^6/uL Hgb 14.1 (13.5-17.5) g/dL Hct 41.6 (41-53) % MCV 93.7 (80-100) fL MCH 31.7 (26-34) PG MCHC 33.8 (30-36) % RDW 13.8 (11.6-14.8) % Plt Count 198 (150-400) X10^3/uL Neut % (Auto) 55.6 (50-75) % Lymph % (Auto) 25.2 (25-40) % [place] % (Auto) 10.7 (3-14) % Eos % (Auto) 7.4 H (2-4) % Baso % (Auto) 1.1 (0-2) % Neut # (Auto) 4300 (7687-8986) /uL Lymph # (Auto) 1900 (0515-4985) /uL [place] # (Auto) 800 (0-900) /uL Eos # (Auto) 600 H (0-450) /uL Baso # (Auto) 100 (0-100) /uL D-Dimer (<230) ng/mL Sodium 139 (137-145) mmol/L Potassium 3.9 (3.4-5.1) mmol/L Chloride 103 (98-107) mmol/L Carbon Dioxide 26 (22-32) mmol/L BUN 13 (9-20) mg/dL Creatinine 0.90 (0.66-1.25) mg/dL Estimated GFR > 60.0 (>60) mL/min BUN/Creatinine Ratio 14.4 (6-22) Glucose 123 H (80-110) mg/dL Calcium 8.9 (8.4-10.2) mg/dL Total Bilirubin 0.4 (0.2-1.3) mg/dL AST 30 (17-59) IU/L ALT 25 (21-72) IU/L Alkaline Phosphatase 95 (38-126) U/L Total Creatine Kinase 167 (55-170) U/L CK-MB (CK-2) 2.79 H (<2.37) ng/mL CK-MB (CK-2) Rel Index 1.7 (1.5-5.0) % Troponin I < 0.012 (0.01-0.034) ng/mL B-Natriuretic Peptide < 100 (<100) Total Protein 7.0 (6.3-8.2) g/dL Albumin 4.1 (3.5-5.0) g/dL Globulin 2.9 (1.7-4.1) g/dL Albumin/Globulin Ratio 1.4 (1.0-2.8) Lipase 260 (23-300) U/L 03/11/19 03/11/19 Range/Units 05:33 07:15 WBC (4.5-11.0) X10^3/uL RBC (4.5-5.9) X10^6/uL Hgb (13.5-17.5) g/dL Hct (41-53) % MCV (80-100) fL MCH (26-34) PG MCHC (30-36) % RDW (11.6-14.8) % Plt Count (150-400) X10^3/uL Neut % (Auto) (50-75) % Lymph % (Auto) (25-40) % [place] % (Auto) (3-14) % Eos % (Auto) (2-4) % Baso % (Auto) (0-2) % Neut # (Auto) (7924-5146) /uL Lymph # (Auto) (6420-4704) /uL [place] # (Auto) (0-900) /uL Eos # (Auto) (0-450) /uL Baso # (Auto) (0-100) /uL D-Dimer 479 H (<230) ng/mL Sodium (137-145) mmol/L Potassium (3.4-5.1) mmol/L Chloride (98-107) mmol/L Carbon Dioxide (22-32) mmol/L BUN (9-20) mg/dL Creatinine (0.66-1.25) mg/dL Estimated GFR (>60) mL/min BUN/Creatinine Ratio (6-22) Glucose (80-110) mg/dL Calcium (8.4-10.2) mg/dL Total Bilirubin (0.2-1.3) mg/dL AST (17-59) IU/L ALT (21-72) IU/L Alkaline Phosphatase (38-126) U/L Total Creatine Kinase (55-170) U/L CK-MB (CK-2) (<2.37) ng/mL CK-MB (CK-2) Rel Index (1.5-5.0) % Troponin I < 0.012 (0.01-0.034) ng/mL B-Natriuretic Peptide (<100) Total Protein (6.3-8.2) g/dL Albumin (3.5-5.0) g/dL Globulin (1.7-4.1) g/dL Albumin/Globulin Ratio (1.0-2.8) Lipase (23-300) U/L Urine Dip Bedside Urine Glucose Negative Bedside Urine Bilirubin - Negative Bedside Urine Ketone - Negative Urine Specific [place] 1.020 Bedside Urine Occult Blood - Negative Bedside Urine pH 6.0 Bedside Urine Protein +/- 15 Bedside Urine Urobilinogen - Negative Bedside Urine Nitrite - Negative Bedside Urine Leukocytes - Negative Esterase ECG Data Attestation: I personally reviewed and interpreted this ECG as follows: Prior ECG tracings: available for review Interpretation: EKG #1 0505 - NSR, no ectopy. No ST segmental elevations or depressions. Rate 73. DE 183. QRS 102. QT 419 EKG #2 EKG #3 MDM Narrative Medical decision making narrative: 74-year-old male with extensive cardiac history presents with a concerning set of symptoms including chest pain with diaphoresis and nausea. He has 3 nonischemic EKGs. Initial troponin is unremarkable. Consultation with outside cardiology reveals a very extensive recent evaluation including heart catheterization which was unremarkable and required no intervention. Other diagnoses including pulmonary embolism considered but thought less likely given the negative age corrected dimer. Patient has had repeat enzymes and remains symptom-free. He has been given return precautions and had questions answered to his apparent satisfaction. Discharge Plan Departure Patient Disposition: Home Clinical Impression: Atypical chest pain Discharge Date/Time: 03/11/19 08:14 Interventions: ED Discharge Assessment Last Done: 03/11/19 08:12 Instructions: DI for Atypical Chest Pain Activity Restrictions/Additional Instructions: *You have been diagnosed with atypical chest pain. Heart attack thought to be unlikely given your recent very significant workup at [facility]. Your cardiology group is happy to see you in follow up. *What to do: *Take medications as directed *Follow up with your primary care provider in 2-3 days, call for an appointment. Let them know you were seen in the Emergency Department and that we ask that you be seen in follow up *Return to ER if you should have any new, worsening or concerning symptoms Prescriptions: No Action multivitamin [Multiple Vitamins] 1 EACH tablet 1 tab PO DAILY Qty: 0 RF: 0 furosemide 20 MG tablet 20 mg DAILY PRN (Reason: Edema) Qty: 0 RF: 0 aspirin 325 MG tablet,delayed release (DR/EC) 325 mg PO BEDTIME Qty: 0 RF: 0 fluticasone propionate 16 GM spray,suspension 1 spray Intranasal BID Qty: 0 RF: 0 loratadine [Claritin Liqui-Gel] 10 MG capsule 10 mg PO DAILY Qty: 0 RF: 0 Spiriva Respimat 1 puff Inhalation DIRECTED RF: 0 Symbicort 1 puff Inhalation DIRECTED RF: 0 acetaminophen-codeine 300-30 mg tablet 1 tab PO Q4-6H PRN (Reason: Pain) RF: 0 trazodone 100 mg tablet 400 tab PO BEDTIME RF: 0 Co Q-10 2 cap PO DAILY RF: 0 krill oil 1 cap PO DAILY RF: 0 levalbuterol tartrate [Xopenex HFA] 45 mcg/actuation HFA aerosol inhaler 1 puff INHALATION Q4-6H PRN (Reason: shortness of breath or wheezing) Qty: 15 RF: 0 metoprolol tartrate 100 mg tablet 100 mg PO BID RF: 0 levalbuterol HCl 1.25 mg/3 mL solution for nebulization 3 ml Inhalation Q6H PRN (Reason: Shortness Of Breath) RF: 0 isosorbide mononitrate 30 mg tablet extended release 24 hr 30 mg PO DAILY Qty: 20 RF: 0 Referrals: Binu Ac MD [Primary Care Provider] -
[2019-03-11] MEDS: SODIUM CHLORIDE 0.9% 1,000 ML 150 ML IV (05:34)
[2019-03-11] MEDS: NITROGLYCERIN 0.4 MG SL TAB SL (05:34)
[2019-03-11 05:40] LABS: Add Manual Diff / Slide Review NO; Basophils Absolute Auto 100 /uL (0-100); Basophils Percent Auto 1.1 % (0-2); Eosinophils Absolute Auto 600 /uL (0-450); Eosinophils Percent Auto 7.4 % (2-4); Hematocrit 41.6 % (41-53); Hemoglobin 14.1 g/dL (13.5-17.5); Lymphocytes Absolute Auto 1900 /uL (1100-4500); Lymphocytes Percent Auto 25.2 % (25-40); Mean Corpuscular HGB Conc 33.8 % (30-36); Mean Corpuscular Hemoglobin 31.7 PG (26-34); Mean Corpuscular Volume 93.7 fL (80-100); Monocytes Absolute Auto 800 /uL (0-900); Monocytes Percent Auto 10.7 % (3-14); Neutrophils Absolute Auto 4300 /uL (1500-7000); Neutrophils Percent Auto 55.6 % (50-75); Platelet Count 198 X10^3/uL (150-400); Red Blood Cell Count 4.44 X10^6/uL (4.5-5.9); Red Cell Distribution Width 13.8 % (11.6-14.8); White Blood Cell Count 7.6 X10^3/uL (4.5-11.0)
[2019-03-11 05:46] LABS: D Dimer 479 ng/mL (<230)
[2019-03-11 05:47] LABS: Alanine Aminotransferase 25 IU/L (21-72); Albumin 4.1 g/dL (3.5-5.0); Albumin Globulin Ratio 1.4 (1.0-2.8); Alkaline Phosphatase 95 U/L (38-126); Aspartate Aminotransferase 30 IU/L (17-59); BUN Creatinine Ratio 14.4 (6-22); Bilirubin Total 0.4 mg/dL (0.2-1.3); Blood Urea Nitrogen 13 mg/dL (9-20); Calcium 8.9 mg/dL (8.4-10.2); Carbon Dioxide 26 mmol/L (22-32); Chloride 103 mmol/L (98-107); Creatine Kinase 167 U/L (55-170); Estimated Glomerular Filt Rate > 60.0 mL/min (>60); Globulin 2.9 g/dL (1.7-4.1); Glucose 123 mg/dL (80-110); HEMOLYSIS 17 (0-50); Lipase 260 U/L (23-300); Potassium 3.9 mmol/L (3.4-5.1); Sodium 139 mmol/L (137-145)
[2019-03-11] MEDS: MORPHINE 4 MG/ML INJ IV (05:48)
[2019-03-11] MEDS: ACETAMINOPHEN 325 MG TABLET 975 MG PO (05:56)
[2019-03-11] MEDS: ONDANSETRON 4 MG/2 ML INJ IV (05:56)
[2019-03-11 05:58] LABS: Troponin I < 0.012 ng/mL (0.01-0.034)
[2019-03-11 06:00] LABS: B Type Natriuretic Peptide < 100 (<100)
[2019-03-11 06:03] LABS: CKMB % Relative Index 1.7 % (1.5-5.0); Creatine Kinase MB 2.79 ng/mL (<2.37)
--- NOTE | 2019-03-11 07:25 | PC.NURSE ---
Pt removes monitor and requests to go home. It is explained that as long as he is here he should be monitored. Monitor placed but refused saline infusion
[2019-03-11 07:45] LABS: Troponin I < 0.012 ng/mL (0.01-0.034)
== END 2019-03-11 08:14 | disposition home or self-care (01) ==
PROVIDERS: Emergency Provider Emergency Medicine; PCP Internal Medicine
DX: R07.89 Other chest pain (principal)
CPT/HCPCS: 36415; 36591; 71045; 80053; 81003; 82550; 82553; 83690; 83880; 84484; 85025; 85379; 93005; 96361; 96374; 96375; 99284; 99285; J2270; J2405

== ENCOUNTER 2019-05-25 11:22 | Inpatient (IN) | payer OTHER, SELFPAY ==
--- NOTE | 2019-02-16 21:28 | ED.SOB ---
HPI - SOB/Dyspnea General Source: patient History of Present Illness Addendum to record of patient's visit on August 29, 2018: Patient presented to the emergency department with chief complaint of wheezing and shortness of breath, with history of COPD. Patient had recent PFTs, but was unsure of results. Also, patient had had a fever a couple of days before, but stated this was resolved. Related Data Home Medications Medication Instructions Recorded Confirmed multivitamin [Multiple Vitamins] 1 tab PO DAILY #0 12/21/16 11/15/18 furosemide 20 mg DAILY PRN #0 08/11/17 11/15/18 aspirin 325 mg PO BEDTIME #0 11/03/17 11/15/18 fluticasone propionate 1 spray INTRANASAL BID #0 11/03/17 11/15/18 loratadine [Claritin Liqui-Gel] 10 mg PO DAILY #0 11/03/17 11/15/18 acetaminophen-codeine 1 tab PO Q4-6H PRN 12/10/17 11/15/18 trazodone 400 tab PO BEDTIME 12/10/17 11/15/18 Co Q-10 2 cap PO DAILY 01/19/18 11/15/18 krill oil 1 cap PO DAILY 01/19/18 11/15/18 levalbuterol HCl 3 ml INHALATION Q6H PRN 10/17/18 11/15/18 metoprolol tartrate 100 mg PO BID 10/17/18 11/15/18 Spiriva Respimat 1 puff INHALATION DIRECTED 11/15/18 11/15/18 Symbicort 1 puff INHALATION DIRECTED 11/15/18 11/15/18 Previous Rx's Medication Instructions Recorded levalbuterol tartrate [Xopenex HFA] 1 puff INHALATION Q4-6H PRN #15 06/23/18 gram isosorbide mononitrate 30 mg PO DAILY #20 tab 01/08/19 Allergies Allergy/AdvReac Type Severity Reaction Status Date / Time celecoxib [CELECOXIB] Allergy Mild SWELLING Verified 01/19/18 11:33 latex [LATEX] Allergy Mild RASH Verified 01/19/18 11:33 W/EXTENDED EXPOSURE morphine [MORPHINE] Allergy Mild Verified 01/19/18 11:33 Sulfa (Sulfonamide Allergy Mild RASH Verified 01/19/18 11:33 Antibiotics) [SULFA (SULFONAMIDE ANTIBIOTICS)] varenicline [VARENICLINE] Allergy Unknown Verified 01/19/18 11:33 oxycodone [OXYCODONE] AdvReac Severe HX Verified 01/19/18 11:33 ADSICTION, PT WANTS TO AVOID tramadol [TRAMADOL] AdvReac Severe HX Verified 01/19/18 11:33 ADDICTION, DOES NOT WANT TO TAKE buprenorphine [BUPRENORPHINE] AdvReac Mild NAUSEA, Verified 01/19/18 11:33 DIZZINESS Jcgodhw-Yzn-Ycy Reductase AdvReac Mild WEAK Verified 01/19/18 11:33 Inhibitor MUSCLES [[id number]-QGV REDUCTASE INHIBITOR] clonidine [CLONIDINE] AdvReac Unknown NO Verified 01/19/18 11:33 ALLERGY, DO NOT USE R/T BETA SVETLANA hyoscyamine [HYOSCYAMINE] AdvReac Unknown PARANOIA, Verified 01/19/18 11:33 LEF JERKING, ANXIETY, NAUSEA W/I MINUTES Review of Systems Cardiovascular Reports dyspnea Respiratory Reports cough, Reports dyspnea and Reports wheezing Allergic/Immunologic Reports wheezing [facility] Medical History Neck pain, chronic (Chronic) Cervical spinal stenosis (Chronic) Achalasia (Chronic) Coronary artery disease (Acute) Atrial fibrillation (Chronic) Hypertension (Chronic) Chronic obstructive pulmonary disease (Chronic 10/23/16) COPD (chronic obstructive pulmonary disease) (Chronic) Coronary artery disease (Chronic) Surgical History History of heart bypass surgery (10/23/16) H/O arthroscopic knee surgery (Chronic) H/O cardiac radiofrequency ablation (Chronic) Family History Mother Stroke Social History (Updated 01/08/19 @ 13:54 by Saira Mccullough DO) Smoking Status: Former smoker alcohol intake: current substance use type: does not use Family History Mother Stroke Social History Smoking Status: Former smoker alcohol intake: current substance use type: does not use Exam Initial Vital Signs Initial Vital Signs: Vital signs stable; pulse oximetry 95% on room air; afebrile Course Course Narrative: Patient was worked up in the emergency department with chest x-ray, which showed no pneumonia, and influenza test, which was negative. Patient was discharged home with instructions for symptomatic management and follow-up, as well as the usual indications for return. MDM - SOB/Dyspnea Medical Records Attestation: I reviewed the patient's medical records. Lab Data Attestation: I reviewed the patient's lab results. Imaging Data Chest x-ray: Radiologist's impression: PROCEDURE: XR CHEST 2V INDICATIONS: worsening cough, wheezing TECHNIQUE: 2 views of the chest were acquired. COMPARISON: [facility], CT, CT ABDOMEN PELVIS W CON, 06/23/2018, 11:21. [facility], CR, XR CHEST 2V, 01/19/2018, 12:25. [facility], CR, XR CHEST 2V, 06/23/2018, 10:07. FINDINGS: Surgical changes and devices: Postsurgical changes are redemonstrated in the mediastinum and lower cervical spine. Lungs and pleura: No pleural effusions or pneumothorax. No acute consolidation. There are a few linear opacities redemonstrated in the left base compatible with scarring. Mediastinum: Mediastinal contours are normal. Heart size is normal. Bones and chest wall: No suspicious bony abnormalities. Soft tissues appear unremarkable. IMPRESSION: 1. No definite evidence of pneumonia. Dictated by: Chapincito Rodriguez M.D. on 08/29/2018 at 10:35 Approved by: Chapincito Rodriguez M.D. on 08/29/2018 at 10:38 Discharge Plan Discharge Med Rec/Prescriptions Prescriptions: No Action multivitamin [Multiple Vitamins] 1 EACH tablet 1 tab PO DAILY Qty: 0 RF: 0 furosemide 20 MG tablet 20 mg DAILY PRN (Reason: Edema) Qty: 0 RF: 0 aspirin 325 MG tablet,delayed release (DR/EC) 325 mg PO BEDTIME Qty: 0 RF: 0 fluticasone propionate 16 GM spray,suspension 1 spray Intranasal BID Qty: 0 RF: 0 loratadine [Claritin Liqui-Gel] 10 MG capsule 10 mg PO DAILY Qty: 0 RF: 0 Spiriva Respimat 1 puff Inhalation DIRECTED RF: 0 Symbicort 1 puff Inhalation DIRECTED RF: 0 acetaminophen-codeine 300-30 mg tablet 1 tab PO Q4-6H PRN (Reason: Pain) RF: 0 trazodone 100 mg tablet 400 tab PO BEDTIME RF: 0 Co Q-10 2 cap PO DAILY RF: 0 krill oil 1 cap PO DAILY RF: 0 levalbuterol tartrate [Xopenex HFA] 45 mcg/actuation HFA aerosol inhaler 1 puff INHALATION Q4-6H PRN (Reason: shortness of breath or wheezing) Qty: 15 RF: 0 metoprolol tartrate 100 mg tablet 100 mg PO BID RF: 0 levalbuterol HCl 1.25 mg/3 mL solution for nebulization 3 ml Inhalation Q6H PRN (Reason: Shortness Of Breath) RF: 0 isosorbide mononitrate 30 mg tablet extended release 24 hr 30 mg PO DAILY Qty: 20 RF: 0 Discharge Data Primary Care Provider: Binu Ac Attending Provider: Mayte Villagomez
[2019-05-23 11:28] VITALS: BMI 30.9
[2019-05-25] VITALS (14 sets, daily range): BP systolic 132–171; BP diastolic 67–98; PULSE 72–97; RESP 2–94; TEMP 36.6–37.4; O2SAT 15–100; BMI 30.9
--- NOTE | 2019-05-25 11:47 | DI.RAD.S_ITS ---
PROCEDURE: XR KNEE LT 1TO2V INDICATIONS: left TKA TECHNIQUE: 2 views of the knee were acquired. COMPARISON: [facility], [place], XR KNEE ARTHRITIC SERIES BI, 04/19/2019, 13:21. [facility], [place], KNEE 3V RIGHT, 02/16/2017, 9:35. FINDINGS: Bones: Interval placement of a left total knee arthroplasty with hardware in expected positions and alignment. There are associated postsurgical changes of distal femoral condyle resection. No periprosthetic fracture or hardware loosening is identified. Calcification versus cortical thickening along the lateral metaphysis of the proximal left tibia is unchanged from comparison exam of 04/19/19. Soft tissues: There is a moderate left knee joint effusion. There is diffuse soft tissue edema and subcutaneous emphysema of the left knee, greatest anteriorly. A surgical drain is present within the left knee joint. Vascular calcifications are noted. Surgical petty project over the posterior left knee. IMPRESSION: Postsurgical changes of left total knee arthroplasty placement with associated joint effusion and soft tissue edema. Dictated by: Noah Rebolledo M.D. on 05/26/2019 at 8:49 Approved by: Noah Rebolledo M.D. on 05/26/2019 at 9:07
[2019-05-25] MEDS: LACTATED RINGERS 1,000 ML 42 ML IV ×2 (12:00→15:46)
[2019-05-25] MEDS: ACETAMINOPHEN 325 MG TABLET 975 MG PO ×2 (12:33→20:16)
[2019-05-25] MEDS: PREGABALIN 75 MG CAPSULE PO ×2 (12:34→19:17)
[2019-05-25] MEDS: ALBUTEROL/IPRATROPIUM 3 ML AMPUL INH (13:14)
--- NOTE | 2019-05-25 13:19 | SUR.PREOP ---
DR ENRIQUEZ NOTIFIED OF PTS BREATH SOUNDS, RESPIRATORY CALLED FOR DUONEB TREATMENT, LUNG SOUNDS MUCH APPROVED AFTER TREATMENT
[2019-05-25] MEDS: VANCOMYCIN 1,000 MG/200 ML PIGGYBACK 200 MG IV (13:20)
[2019-05-25] MEDS: CEFAZOLIN 2 GM/100 ML FROZ.PIGGY IV ×2 (14:30→22:33)
--- NOTE | 2019-05-25 14:39 | PM.PREOP ---
Pre-operative Note Interval Note History & Physical reviewed/Exam performed by Physician: Yes Changes to H&P: No
--- NOTE | 2019-05-25 14:39 | PM.OP.1 ---
Operative Date/Time/Diagnoses Date of procedure: 05/25/19 Time of procedure: 14:39 Pre-op diagnosis: Left knee osteoarthritis Post-op diagnosis: same Procedure & Clinicians Procedure: Left total knee arthroplasty Same procedure as scheduled: Yes Indications: The patient has had progressively worsening left knee pain with radiographic changes consistent with arthritis. Non-operative management has failed and the patient has requested total knee replacement. The risks, benefits and alternatives to surgery were discussed with the patient prior to proceeding. Risks discussed included, but were not limited to, failure to relieve pain, stiffness, infection, nerve damage, deep venous thrombosis, pulmonary embolism, stroke, coma, heart attack, permanent paralysis and , as well as the potential need for eventual revision of the prosthetic. Surgeon: Mayte Villagomez Tail End Rider: Ld Gunn Anesthesia Type: Spinal and Sedation Operative Notes Findings: Severe left knee osteoarthritis, good stability Closure Type: primary Specimen(s): none sent Prosthetic devices, grafts, tissues, transplants, or devices: Villagomez [employer] Nephew Journey BCS 2 5 femur, 5 tibia, 35 oval patella, 10mm poly Applied: drain(s) Estimated Blood Loss (mL): 250 Blood products transfused: none Tourniquet time (min): 80 Procedure in detail: The patient was seen in the pre-operative area, where the patient identified the left knee as the operative site and this was marked with my initials. The patient received pre-operative antibiotics, and was taken to the operating room and placed on the operative table in the supine position. After satisfactory anesthesia, a physical sciences instructor out was performed. The left leg was encircled with a tourniquet about the proximal thigh, and the leg was prepared from the toes to the tourniquet with ChloroPrep in the usual fashion and draped through sterile drapes. The leg was elevated and exsanguinated with Eschmark bandage and the tourniquet inflated to [250] mmHg pressure. The knee was approached through an approximately 18 cm incision centered over the patella and carried into the knee through a medial parapatellar arthrotomy. A portion of the medial and lateral meniscus was resected. Soft tissue was carefully mobilized around the patella the patella was measured with a caliper. Bone was resected from the patella and the patellar height was reconstituted with up an appropriate sized patellar component. A cover was then placed on the patella. A small amount of additional medial and lateral meniscus was resected. The visionare guide fit well to the distal femur. It looked like an appropriate distal femoral cut and the cut was made without difficulty. The rotation was assessed and the appropriate size femoral guide was placed on the distal femur and finishing cuts were made. There was no evidence of notching. The anterior, posterior and chamfer cuts were then made. The posterior osteophytes and soft tissues were then removed. The posterior capsule was injected with part of a mixture of 60 ml 0.25% Marcaine mixed with 20 ml Exparel for post operative pain control. The remainder of this mixture was injected into the capsule and subcutaneous tissues during cement curing. The tibia was prepared and the visionaire guide fit well to the distal tibia. The rotation was assessed. The patient was placed in extension residual medial and lateral meniscus as well as any residual bone was carefully resected. No additional tibia was resected. Hemostasis was achieved especially posteriorly. Additional local was injected into the posterior capsule. The extension gap was assessed and additional releases for gap balancing were performed as necessary. The femoral component was trial was placed and the notch was finished. Trial tibial and femoral components were then placed and the knee placed through a range of motion. Range of motion was [0-130], with good stability throughout the range. The trials were then removed, and the tibia was finished. The bone was prepared with pulsatile lavage, and dried with a sponge. Cement was applied and the final prosthetics placed. Excess cement was removed during and after cement curing. A brief Betadine soak was performed. After confirming there was no extruded cement posteriorly, the final tibial insert was placed. The knee was copiously irrigated and the tourniquet deflated. Hemostasis was obtained with the Bovie cautery. A drain was placed and brought out superolaterally. The capsule was closed with interrupted Vicryl suture. The subcutaneous layer was closed with barbed sutures, and the skin with a running 3-0 V-Lock suture and Surgical glue. An Aquacel Ag dressing was applied and the patient was taken to recovery having tolerated the procedure well. Complications: none Post-operative Condition: stable Disposition: Acute Care Plan for aftercare: The patient will be maintained on a standard total knee replacement protocol with weight bearing as tolerated. The patient will receive aspirin and sequential compression devices for DVT prophylaxis. The patient will be discharged home when safe for the home environment.
--- NOTE | 2019-05-25 15:02 | SUR.OPER ---
Supine on padded OR bed. Pillow under head, arms secured on padded armboards <90 degree abduction. Safety belt across torso. Non-operative leg secured with tape over blanket over lower leg. Operative leg secured in [place] positioner. Foam padded brace at thigh of operative leg.
[2019-05-25] MEDS: BUPIVACAINE 0.25% W/ EPI 30 ML VIAL 60 ML INJ (15:06)
[2019-05-25] MEDS: BUPIVACAINE LIPOSOME 266 MG/20 ML VIAL INJ (15:08)
[2019-05-25] MEDS: TRANEXAMIC ACID 1,000 MG VIAL 2000 MG INJ ×2 (15:08→16:24)
[2019-05-25] MEDS: SODIUM CHLORIDE IRRIG SOLUTION 250 ML, POVIDONE-IODINE SPONGE STICKS 1 APPLIC IRR (15:09)
[2019-05-25] MEDS: HYDROMORPHONE 2 MG INJ 0.5 MG IV ×3 (17:43→18:50)
[2019-05-25] MEDS: OXYMETAZOLINE NASAL SPRAY 30 ML 2 SPRAYS NASAL (18:00)
[2019-05-25] MEDS: OXYCODONE/ACETAMINOPHEN 5/325 TABLET 1 TAB PO ×2 (18:29→18:30)
[2019-05-25] MEDS: hydrOXYzine 50 MG/ML INJ IM (18:30)
[2019-05-25] MEDS: OXYCODONE IR 5 MG TABLET PO (19:20)
[2019-05-25] MEDS: LACTATED RINGERS 1,000 ML 125 ML IV (19:24)
[2019-05-25] MEDS: ASPIRIN EC 81 MG TABLET PO (20:19)
[2019-05-25] MEDS: DOCUSATE 100 MG CAPSULE PO (20:20)
[2019-05-25] MEDS: METOPROLOL IR 50 MG TABLET 100 MG PO (20:20)
[2019-05-25] MEDS: KETOROLAC 15 MG/ML VIAL IV (20:37)
[2019-05-25] MEDS: HYDROMORPHONE 2 MG INJ 1 MG IV (21:06)
[2019-05-26 00:50] VITALS: BP 100/60; PULSE 74; RESP 20; TEMP 36.7; O2SAT 96
[2019-05-26] MEDS: HYDROMORPHONE 4 MG TABLET PO ×2 (00:55→05:11)
[2019-05-26] MEDS: HYDROMORPHONE 1 MG INJ IV ×2 (02:34→06:56)
--- NOTE | 2019-05-26 02:52 | PC.NURSE ---
Addendum entered by Dea Jain R.N. 05/26/19 07:00: Patient in room crying stating he is in so much pain; medicated with IV Dilaudid and ice applied to knee. Addendum entered by Dea Jain R.N. 05/26/19 05:17: States knee pain is 7/10; describes as painful but when pressed for description states pain is a dull ache; medicated with po Dilaudid. Original Note: 0100 Patient awake and stated he had to urinate. Wanted to sit on edge of bed but would not wait for RESIDENCE DIRECTOR to unhook hemovac or SCD's so ended up pulling out his hemovac. Once on edge of bed unable to urinate and wanted to go into bathroom so brought BSC to bed and assisted with walker and 2 assists to sit on commode. Then wanted to stand to try to urinate so stood with walker and 2 assist and able to urinate total of 225cc. Assisted back to bed. Complaining of 9/10 pain so medicated with po Dilaudid as was crying, moaning and calling out for help. Ice pack also applied to knee. 0130 Patient asleep with FLACC of 0. Began assessment and patient awakened and immediately began complaining of pain and states pain is still 9/10. Is alert and oriented. Breath sounds CTA with RA sat of 96%. HRR. Denies nausea. BT present; abdomen is quite large/rounded. Aquacel dressing is CDI with farhana wrap covering; sanguineous drainage on farhana wrap from when hemovac got pulled out by patient. CMS is intact bilaterally. Wearing SCD only on right leg due to pain issues. Shortly after noted patient again asleep. 0235 Patient heard moaning, crying in room and when checked on states he is in a lot of pain and rates pain at 9.5/10 so medicated with IV Dilaudid. 0301 Patient is again found to be asleep.
[2019-05-26] MEDS: LACTATED RINGERS 1,000 ML 125 ML IV (03:06)
[2019-05-26] MEDS: CEFAZOLIN 2 GM/100 ML FROZ.PIGGY IV (05:11)
[2019-05-26 05:15] VITALS: BP 135/83; PULSE 74; RESP 18; TEMP 37.1; O2SAT 97
[2019-05-26] MEDS: FLUTICASONE 120 SPRAY/16 GM SPRAY.SUSP NASAL (10:08)
[2019-05-26] MEDS: ACETAMINOPHEN 325 MG TABLET 975 MG PO ×3 (10:08→20:05)
[2019-05-26] MEDS: KETOROLAC 15 MG/ML VIAL 10 MG IV ×3 (10:09→21:37)
[2019-05-26] MEDS: METOPROLOL IR 50 MG TABLET 100 MG PO ×2 (10:09→20:06)
[2019-05-26] MEDS: MULTIVITAMIN 1 TABLET 1 TAB PO (10:10)
[2019-05-26] MEDS: ASPIRIN EC 81 MG TABLET PO ×2 (10:10→20:06)
[2019-05-26] MEDS: LORATADINE 10 MG TABLET PO (10:10)
[2019-05-26] MEDS: DOCUSATE 100 MG CAPSULE PO ×2 (10:10→20:06)
[2019-05-26] MEDS: OXYCODONE IR 5 MG TABLET 10 MG PO ×4 (10:10→20:35)
--- NOTE | 2019-05-26 11:00 | PM.PNPO.1 ---
Subjective Subjective Date Patient Seen: 05/26/19 Time Patient Seen: 11:04 Interval history: Patent is POD#1 s/p left TKA by Dr. Villagomez. He has had some difficulty with pain control. Dilaudid 4mg was added for pain control however his nurse reported some confused behavior with this, also his today is expressing extreme concern over him taking Dilaudid as he has had severe confusion with this in the past, ripping out IVs etc. He denies any chest pain or calf tenderness. Exam Vital Signs (past 8 hours): - 05/26/19 05:15 Temperature 98.7 F Pulse Rate 74 Respiratory Rate 18 Blood Pressure 135/83 Pulse Oximetry 97 Oxygen Delivery Method Room Air Oxygen Flow Rate 0 Narrative Exam Narrative: 74 year old male resting in bed in some discomfort. Patient seems confused, requesting cane while lying in bed, difficulty keeping eyes open and completing sentences but is following commands. Dressing in place over left knee is CDI. Able to flex/extend the foot. Palpable pedal pulse. Claves soft, compressible. Objective Labs Result Diagrams: 05/26/19 06:30 Labs: Laboratory Results - last 24 hr 05/26/19 06:30 Hgb 13.0 L Hct 37.0 L Assessment & Plan Post-op Postoperative Procedures: Procedures Operation Date: 04/04/19 10:45 <No data on this case meets the specified criteria> Operation Date: 05/25/19 13:45 Actual Procedures Side Surgeon p Total Knee Arthroplasty Left Mayte Shalini Villagomez MD Will discontinue Dilaudid at this time due to confusion. He was tolerating Oxycodone so will return to this with the addition of 10mg for severe pain. Toradol 10mg Q6hrs added as well. He should mobilize with PT later today. Likely discharge to home tomorrow.
[2019-05-26 11:21] VITALS: BP 128/68; PULSE 73; RESP 20; TEMP 36.5; O2SAT 92
--- NOTE | 2019-05-26 12:09 | PT.IIE ---
Current Diagnoses Unilateral post-traumatic osteoarthritis, left knee (05/25/19) Surgery Performed Operation Date: 04/04/19 10:45 <No data on this case meets the specified criteria> Operation Date: 05/25/19 13:45 Actual Procedures p Total Knee Arthroplasty(Left) - Mayte Villagomez MD Surgical History (Last Updated 05/23/19 @ 12:38 by Fern Rosales RN) H/O arthroscopic knee surgery (Chronic 11/15/17) History of arthroplasty of right knee (Acute) History of bilateral total hip arthroplasty (Acute) History of cardiac cath (Acute ~03/2014) History of esophageal surgery (Acute) History of incision and drainage (Acute ~2017) History of prior ablation treatment (Acute ~03/2017) History of surgery (Acute) Hx of cholecystectomy (Acute) Hx of hernia repair (Acute) Hx of sinus surgery (Acute) S/P CABG x 3 (Acute ~08/2007) S/P cervical spinal fusion (Acute) S/P lumbar fusion (Acute) Medical History (Last Updated 05/23/19 @ 11:47 by Fern Rosales RN) Achalasia (Chronic) Anginal pain (Acute) Asthma (Acute) Atrial fibrillation (Chronic) Cervical spinal stenosis (Chronic) Chronic obstructive pulmonary disease (Chronic 10/23/16) COPD (chronic obstructive pulmonary disease) (Chronic) Coronary artery disease (Acute) History of aortic dissection (Acute ~08/2007) Hypertension (Chronic) Ischemic cardiomyopathy (Acute) Neck pain, chronic (Chronic) Ventricular bigeminy (Acute) Physical Therapy Inpatient Evaluation/Re-Eval M1 PT/OT-IP Prior Functional Status Start: 05/26/19 08:33 Freq: NEEDED Status: Active Protocol: Document 05/26/19 08:48 HH (Rec: 05/26/19 12:08 [email or web address]) Medical Review Prior Functional Status Medical History Reviewed Yes Diet/Fluid Consistency Regular Communication Pt is very confused upon assessment. Unable to obtain information regarding PLOF, social hx. Social History Household Members spouse Living Arrangements House Number of Floors (Floors) Two Floors M2 PT-IP Current Condition Start: 05/26/19 08:33 Freq: NEEDED Status: Active Protocol: Document 05/26/19 08:48 HH (Rec: 05/26/19 12:08 [email or web address]) Physical Therapy Current Condition Current Condition Evaluation Date 05/26/19 Treatment Diagnosis L TKA, difficulty in walking and decreased balance. Onset Date 05/25/19 Weight Bearing Status Weight Bearing Status Weight Bear as Tolerated M3 PT-IP Subjective Start: 05/26/19 08:33 Freq: NEEDED Status: Active Protocol: Document 05/26/19 08:48 HH (Rec: 05/26/19 12:08 [email or web address]) Subjective Physical Therapy Visit Type Type Initial Evaluation Visit Start Time 08:48 Visit Stop Time 09:40 Total Visit Minutes 52 Notes Per RN, pt has been calling out pain the entire night and He has had some difficulty with pain control. Dilaudid 4mg was added for pain control however his nurse reported some confused behavior with this. co-tx with EILEEN Rizzo and RN Carol assisted for bathroom transfers. Number of HOT PACKER Visits 0 Physical Therapy Visit Comments Patient Comments I had so much pain and i want to got to bathroom. Patient Goals I dont know Therapy Pain Assessment Pain When Pain Assessed At Rest Pain Present Pain Present Pain Reported Location Left Knee Intensity 9 Scale Used Numeric (1 - 10) Description Acute Pain Behaviors Calling Out,Crying,Facial Grimacing Pain Management Techniques Apply Cold,Modification of Treatment,Re-positioning, Timing of Activity with Medications M4 PT-IP Mobility and Gait Start: 05/26/19 08:33 Freq: NEEDED Status: Active Protocol: Document 05/26/19 08:48 HH (Rec: 05/26/19 12:08 [email or web address]) PT-Bed Mobility Assessment Supine to Sit Supine to Sit Maximum Assistance,2 Person Assistance,Head of Bed Elevated,Bedrails Sit to Supine Sit to Supine Maximum Assistance,2 Person Assistance,Head of Bed Elevated,Bedrails Scooting Scooting to Edge of Bed Moderate Assistance Scooting Up and Down in Bed Moderate Assistance PT-Transfer Assessment Sit to and From Stand Sit to and from Stand Moderate Assistance,Maximum Assistance,2 Person Assistance ,Use of Upper Extremities Equipment Transfer Assistive Device Gait Belt,Front Wheeled Walker Orthotic/Prosthetic Devices or Brace: No Transfers Transfer Destination Bed,Chair,Toilet Transfer Technique Stand Step Pivot Transfer Ability Level of Assist Moderate Assistance,Maximum Assistance,2 Person Assistance ,Use of Upper Extremities Comments Mobility Comments Pt calling out pain throught the entire session. Pt is very impulsive and easily agitated . He appears confused and disoriented who needs extensive cues to provide instructions and reminders. Pt requested to use bathroom. He performed supine to sit from elevated bed ~70degrees and used bed rails INFORMATICS CONSULTANT to pull up, followed by INFORMATICS CONSULTANT to scoot to EOB. He then impulsively stood up by pull to stand with FWW with 2PA mod/ max A, followed by stand step pivot to BSC on L side. Pt has poor eccentric control and disregard to use armrest for transfer. He cont kept calling out for his 10 pain and attempted to stand up multiple times without instruction. Pt stood up again and requested to use bathroom with the SPT and RN assistance. Pt amb with step to pattern with WB mostly through UEs and RLE. He completed stand to sit on toilet sideways by leaving his walk on the side. Pt had a large BW afterwards and required max A for self clean up. He then amb back to bed with 2PA and extensive cues for walker management. Pt was transferred back to bed with mod 2pa. bed alarm activated and SCD bilaterally in place. Gait Assessment Gait Gait Assistance Required: Moderate Assistance,2 Person Assist Distance (Feet) 10 Able to Maintain Weight Bearing Status Yes During Gait Assistive Devices Assistive Device Gait Belt,Front Wheeled Walker Orthotic/Prosthetic Devices or Brace: No Gait Deviations General Gait Pattern Antalgic,Decreased Stride Length,Decreased Feet Clearance,Flexed Trunk,Lateral Trunk Lean,Step-to Gait,Wide Based Gait Factors Limiting Gait Function Factors Limiting Gait Function Decreased Activity Tolerance, Decreased Sensation,Decreased Strength,Difficulty Following Directions,Limited Range of Motion,Pain,Poor Balance,Poor Safety Awareness Comments Gait Comments see mobility comment. Stair Climbing Assessment Comments Stair Climbing Comments unable to assess PT-Balance Assessment Sitting Balance and Reactions Static Sitting Balance Ability Good Dynamic Sitting Balance Ability Fair Standing Balance and Reactions Static Standing Balance Ability Fair Dynamic Standing Balance Ability Poor Device Used FWW M5 PT-IP Objective Assessments Start: 05/26/19 08:33 Freq: NEEDED Status: Active Protocol: Document 05/26/19 08:48 (Rec: 05/26/19 12:08 [email or web address]) Orientation Orientation/Cognition Level of Alertness Confusional State Orientation Name,Age,Place,Situation Language Function Ability Hard of Hearing Safety Awareness Decreased Safety Awareness Memory Description Short Term Impaired Comments Pt is very easily agitated and confused. Has difficulty following simple commands. Gross Range of Motion Upper Extremity ROM Assessment Within Functional Limits Lower Extremity ROM Assessment Left Impaired Impairments did not assess due to his severe pain and increased confusion Strength Upper Extremity Strength Assessment Within Functional Limits Lower Extremity Strength Assessment Left Impaired Comments Strength Comments did not assess due to his severe pain and increased confusion M6 PT-IP Treatment Start: 05/26/19 08:33 Freq: NEEDED Status: Active Protocol: Document 05/26/19 08:48 HH (Rec: 05/26/19 12:08 [email or web address]) Physical Therapy Treatment Education Education Provided Precautions,Weight Bearing Status,Post-Op Packet,Safety M7 PT-IP Assessment and Plan Start: 05/26/19 08:33 Freq: NEEDED Status: Active Protocol: Document 05/26/19 08:48 HH (Rec: 05/26/19 12:08 [email or web address]) PT Summary Assessment and Plan Potential Rehabilitation Potential Good Status of Condition at Evaluation Evolving Summary Impairments Pain,ROM,Strength,Balance, Sensation,Cognition,Bed Mobility,Transfers,Gait, Activity Tolerance Assessment Summary Patent is POD#1 s/p left TKA by Dr. Villagomez. He has had some difficulty with pain control. Pt started to have Dilaudid 4mg since last night and his nurse reported some confused behavior with this. Pt appears to be very confused and easily agitated who has difficulty following simple commands and c/o 9/10 severe L knee pain. Pt has very poor safety awareness and impulsive to mobility (mod to max 2pa overall) who presents a very high fall risk for further injury. Pt's spouse present at the last few minutes of the session expressing extreme concern over him taking Dilaudid as he has had severe confusion with this in the past, ripping out IVs etc. She also stated pt had 15 surgeries in the past and had hx of requesting more pain meds. She was very agitated to speak to RN, PA and Dr. Villagomez . Attempted to call her via phone afterwards to obtain pt' s PLOF, social hx but unsuccessful. Will reattempt later. Recommended SNF at this point due to his unsafe behaviors and poor mobility status. Goals Bed Mobility Goal Contact Guard Assistance Transfer Goal Contact Guard Assistance,Front Wheeled Walker Gait Goal Contact Guard Assistance,Front Wheel Walker Gait Distance 100 Other Goals will have to obtain info from his for home environment and DMEs Days to Meet Goals 5 Frequency of Treatment Frequency Of Treatment Twice a Day Treatment Plan Physical Therapy Treatment Plan Bed Mobility Training,Transfer Training,Gait Training, Therapeutic Exercise,Balance Retraining,Post Op Education, Discharge Planning,Hot or Cold Pack,Neuromuscular Re-ed, Manual Therapy Other Recommendations and Next Treatment reach out to spouse for pt's Focus dmes, social hx, PLOF reassess pt's mental status prior to tx bed mob, gait training, transfer training as ruba Recommendations To Nursing Amount of Assist Needed PT/OT Assist Only Discharge Recommendations PT Discharge Recommendations SNF Rehab Equipment Needed for Home Before will have to obtain info from Discharge his for home environment and DMEs
[2019-05-26] MEDS: FUROSEMIDE 20 MG TABLET PO (14:01)
--- NOTE | 2019-05-26 15:47 | PT.IPTN ---
Current Diagnoses Unilateral post-traumatic osteoarthritis, left knee (05/25/19) Surgery Performed Operation Date: 04/04/19 10:45 <No data on this case meets the specified criteria> Operation Date: 05/25/19 13:45 Actual Procedures p Total Knee Arthroplasty(Left) - Mayte Villagomez MD Physical Therapy Treatment Note M2 PT-IP Current Condition Start: 05/26/19 08:33 Freq: NEEDED Status: Active Protocol: Document 05/26/19 14:26 JG (Rec: 05/26/19 15:46 JG [email or web address]) Physical Therapy Current Condition Current Condition Evaluation Date 05/26/19 Treatment Diagnosis L knee TKA, poor safety awareness, difficulty with mobility and ambulation Onset Date 05/25/19 M3 PT-IP Subjective Start: 05/26/19 08:33 Freq: NEEDED Status: Active Protocol: Document 05/26/19 14:26 JG (Rec: 05/26/19 15:46 JG [email or web address]) Subjective Physical Therapy Visit Type Type Treatment Note Visit Start Time 14:26 Visit Stop Time 14:44 Total Visit Minutes 18 Number of ANGIOGRAPHY TECHNOLOGIST Visits 0 Physical Therapy Visit Comments Patient Comments I am in agony because of my knee and I need to go to the bathroom. Pt states that is not helpful at home after prior surgeries and he has always been independent in self care post surgery. Patient Goals Return home Therapy Pain Assessment Pain When Pain Assessed At Rest Pain Present Pain Present Pain Reported Location Left Knee Intensity 9 Scale Used Numeric (1 - 10) Description Acute,Sharp,Stabbing,Throbbing ,With Movement Pain Behaviors Calling Out,Facial Grimacing, Moaning,Restlessness,Wincing Pain Management Techniques Distraction,Re-positioning M4 PT-IP Mobility and Gait Start: 05/26/19 08:33 Freq: NEEDED Status: Active Protocol: Document 05/26/19 14:26 JG (Rec: 05/26/19 15:46 JG [email or web address]) PT-Bed Mobility Assessment Supine to Sit Supine to Sit Moderate Assistance,1 Person Assistance,Head of Bed Elevated Sit to Supine Sit to Supine Moderate Assistance,1 Person Assistance,Head of Bed Elevated Scooting Scooting to Edge of Bed Minimal Assistance PT-Transfer Assessment Sit to and From Stand Sit to and from Stand Moderate Assistance,2 Person Assistance,Use of Upper Extremities Equipment Transfer Assistive Device Gait Belt,Front Wheeled Walker Orthotic/Prosthetic Devices or Brace: No Transfers Transfer Destination Bed,Bedside Commode Transfer Technique Walk and pivot Transfer Ability Level of Assist Moderate Assistance,2 Person Assistance,Use of Upper Extremities Comments Mobility Comments Pt was in bed at start of therapy. Pt able to use gait belt to move LLE to EOB and sit up with HOB elevated 45 degrees and with use of UEs and mod A HAM BONER. Pt able to scoot to EOB with min A and stand using UE and FWW with mod A. Pt has poor safety awareness and was impulsive throughout therapy, requiring multiple reminders to follow directions and not stand without support. Pt required mod A to maintain standing as L knee would buckle. Pt had difficulty weight shifting to LLE due to pain. Pt ambulated to bedside commode in bathroom and was mod A stand to sit from side. After urinating a small amount, pt again tried to stand without waiting for therapy but knee started to buckle. Pt able to stand again with mod A and ambulate back to bed with mod A to maintain balance and safety. Pt tried to sit sideways onto bed and required mod Ax2 to pivot and sit with poor eccentric control. Pt used gait belt to pull leg back onto bed and needed mod A for eccentric control for sit to supine with HOB elevated 45 degrees. Pt left in bed with both side rails raised per pt request and bed alarm on. Gait Assessment Gait Gait Assistance Required: Moderate Assistance,2 Person Assist Distance (Feet) 10 Assistive Devices Assistive Device Gait Belt,Front Wheeled Walker Orthotic/Prosthetic Devices or Brace: No Gait Deviations General Gait Pattern Antalgic,Decreased Stride Length,Decreased Feet Clearance,Flexed Trunk,Step-to Gait,Wide Based Gait Factors Limiting Gait Function Factors Limiting Gait Function Decreased Activity Tolerance, Decreased Strength,Difficulty Following Directions,Limited Range of Motion,Pain,Poor Balance,Poor Safety Awareness Comments Gait Comments See mobility section. Stair Climbing Assessment Comments Stair Climbing Comments not assessed PT-Balance Assessment Sitting Balance and Reactions Static Sitting Balance Ability Fair Dynamic Sitting Balance Ability Poor Standing Balance and Reactions Static Standing Balance Ability Poor Dynamic Standing Balance Ability Poor M5 PT-IP Objective Assessments Start: 05/26/19 08:33 Freq: NEEDED Status: Active Protocol: Document 05/26/19 08:48 (Rec: 05/26/19 12:08 [email or web address]) Orientation Orientation/Cognition Level of Alertness Confusional State Orientation Name,Age,Place,Situation Language Function Ability Hard of Hearing Safety Awareness Decreased Safety Awareness Memory Description Short Term Impaired Comments Pt is very easily agitated and confused. Has difficulty following simple commands. Gross Range of Motion Upper Extremity ROM Assessment Within Functional Limits Lower Extremity ROM Assessment Left Impaired Impairments did not assess due to his severe pain and increased confusion Strength Upper Extremity Strength Assessment Within Functional Limits Lower Extremity Strength Assessment Left Impaired Comments Strength Comments did not assess due to his severe pain and increased confusion M6 PT-IP Treatment Start: 05/26/19 08:33 Freq: NEEDED Status: Active Protocol: Document 05/26/19 08:48 HH (Rec: 05/26/19 12:08 [email or web address]) Physical Therapy Treatment Education Education Provided Precautions,Weight Bearing Status,Post-Op Packet,Safety M7 PT-IP Assessment and Plan Start: 05/26/19 08:33 Freq: NEEDED Status: Active Protocol: Document 05/26/19 14:26 JG (Rec: 05/26/19 15:46 JG [email or web address]) PT Summary Assessment and Plan Potential Rehabilitation Potential Good Status of Condition at Evaluation Evolving Summary Impairments Pain,ROM,Strength,Balance, Coordination,Bed Mobility, Transfers,Gait,Activity Tolerance Progress Towards Goals Slow Progress due to Pain,Slow Progress due to Medical Issues,Slow Progress due to Activity Tolerance Assessment Summary Pt continues to focus on L knee pain and report high pain intensity. Pt appears less confused and agitated than he did this morning but continues to be impulsive and has very low safety awareness. Pt required mod A for majority of mobility and ambulation. Pt's knee pain and poor safety awareness and activity tolerance limits his mobility. Continued recommendation for d/c to SNF due to safety concerns. Potential for d/c to home with assist + home health depending on mental status and pain control but will continue to monitor. Pt's will be in hospital tomorrow to discuss d/c and receive caregiver training if necessary. Goals Bed Mobility Goal Contact Guard Assistance Transfer Goal Contact Guard Assistance,Front Wheeled Walker Gait Goal Contact Guard Assistance,Front Wheel Walker Gait Distance 100 Other Goals 2 TIERRA with railing on L side Days to Meet Goals 5 Frequency of Treatment Frequency Of Treatment Twice a Day Treatment Plan Physical Therapy Treatment Plan Bed Mobility Training,Transfer Training,Gait Training, Therapeutic Exercise,Balance Retraining,Post Op Education, Discharge Planning,Hot or Cold Pack,Neuromuscular Re-ed, Manual Therapy Other Recommendations and Next Treatment bed mob, gait training, Focus transfer training, stair training as ruba Recommendations To Nursing Amount of Assist Needed 2 Person Assist Discharge Recommendations PT Discharge Recommendations Home with 24/7 Assist,Home Health,SNF Rehab Equipment Needed for Home Before shower seat Discharge
--- NOTE | 2019-05-26 15:51 | CM.DPNOTE ---
D/C Planning Note-DITCHING MACHINE OPERATING ENGINEER reviewed EMR. Ortho: Mayte Villagomez. Payor: [facility] [facility] DITCHING MACHINE OPERATING ENGINEER met with pt to clarify d/c planning needs. Pt states that he is not interested in SNF rehab, that he has had multiple ortho surgeries and wishes to d/c home with OP f/u. Pt has all the DME he needs already in the home. He feels well supported by his , as well as a [place] friends. 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 He shared that he minoo with ongoing PTSD and that having surgeries triggers flashbacks from that time. DITCHING MACHINE OPERATING ENGINEER offered emotional/coping support, as well as reassurance that he was doing the best he can. He kept apologizing for needing pain medication, and feels that staff are upset with him. Encouraged pt to rest, that staff were caring and wanting to provide for the best care for him during his stay. No further needs identified at this time. Discharge Planning/Care Management CM Discharge Assessment Start: 05/26/19 15:40 Freq: Status: Active Protocol: Document 05/26/19 15:40 DPL (Rec: 05/26/19 15:51 DPL [id number]) Discharge Planning Assessment Assigned Carpenter Repair Breanna Vaughn DPOA/Assigned Designee Name None identified. Contact Information Cristel Mendiola, spouse Advance Directives? No: Declines further information Advance Directives on File No History Provided By Patient Expected Length of Stay 2 Has Patient been admitted in last 30 No days? Prior Living Arrangements House Household Members spouse Type of transporation used prior to Drives own vehicle admit Independent with ADL's Yes Is patient alert and oriented? Yes Needs Assistance With Meal Prep,Home Chores / Shopping Comment Pt's kush be able to provide for pt's continuing care needs. Caregiver for Another No Comment N/A DME Already Rented / Owned Other Comment Pt states that he has DME in the home from the last time he had knee surgery, however he didn't want to discuss details . Patient/Family Preference OP PT Therapy Comment Pt declines the need for SNF rehab, wants to d/c home with continued outpatient services. Barriers to Discharge No Discharge Plan Home Transportation Arrangement Spouse will transport. Additional Comment No referrals initiated at this time. Pre-Anesthesia Assessment Start: 05/23/19 11:28 Freq: Status: Complete Protocol: Document 05/23/19 11:28 CAB (Rec: 05/23/19 12:41 CAB [id number]) Pre-Anesthesia Assessment Patient Also Known As Andersen (AKA) Patient Information Reviewed Via Phone Assessment Assessment Completed With Patient Diagnostic Results BMP/CMP,CBC,EKG,Urinalysis Comment Outside labs/EKG scanned to record Primary Care Provider Binu Ac Seen Specialist in Last 12 Months Yes Specialist Seen [facility],Orthopedist, Network Operations Analyst Comment Pulmonary clearance 12/09/18 scanned to record Primary Language North [place] Float Remover Required No Height 185.42 cm Weight 106.141 kg Body Mass Index (BMI) 30.9 Hearing Ability Normal Visual Assist Glasses Dentition Type Teeth, Natural Present Other Aids No Hx Anesthesia Reactions Yes: Awoke during Patella surgery 1971 Hx Family Anesthesia Reaction No Hx Malignant Hyperthermia No Hx Blood Transfusions No: Pt unsure alcohol intake current alcohol intake frequency a few times a week Smoking Status Former smoker Tobacco type cigarettes how long ago did patient quit smoking Quit 2006 Substance Use Type does not use Pain Present Pain Reported Musculoskeletal Symptoms Abnormal Gait,Back Pain, Difficulty Walking,Joint Pain History of Falling (Recent or History of Yes ) Patient is completely paralyzed or No completely immobile Prosthesis or Orthotic Device Cane Mental Status Oriented to own ability Is patient on oxygen? No Does patient have PALOMINO/SOB Yes Hx Sleep Apnea No Currently Taking a Beta Bhaskar Yes: Metoprolol Can You Climb a Flight of Stairs Without No SOB Hx Chest Pain Yes Hx SOB Yes Hx Syncope or Dizziness No Anti-Coagulant Therapy Yes: 325mg ASA Has a [facility] Yes: Dr. Jacobs-last visit Cardiac Testing Yes: NM stress 01/11/19-low risk study, normal perfusion Hx Pacemaker/ICD No Pacemaker Rep Required? 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 Marital Status Lives With spouse Prior Living Arrangements House Number of Floors (Floors) Two Floors Support System Spouse Does the Patient Have Assistance After Yes Surgery Patient Discharge Plan Description Return Home Comment Pt advised 2 day length of stay per surgeon Feels Safe in Current Environment Yes Been Physically Hurt or Threatened By a No Person in Current Environment Do you have thoughts of harming yourself None or others? Are you currently considering suicide? No Do you have a plan to hurt yourself or No Plan others? Do You Have Any Spiritual Beliefs That No May Affect Your HC Choices? Do You Have Any Cultural Practices That No May Affect Your HC Choices? Comment Jainism Who Can We Speak to About Patient's Care Family, friends Identifying Code for Release of Patient Declines to issue Information Health Care Proxy/Next of Kin Cristel () Health Care Proxy [phone] Emergency Contact Name Cristel () Adria( Brother) Emergency Contact Phone Number Cristel: [phone] Adria [phone] Advance Directives? No: Declines further information Power of Staff Antisubmarine Officer No PAC Instructions Durable medical equipment, Medications to take/avoid, Nasal antibiotic,No ETOH/ petroleum product on skin DOS, NPO,Post-op transportation,Pre -surgical wash,Sturdy shoes/ comfortable clothes,Do not bring valuables and remove jewelry
[2019-05-26 16:00] VITALS: BP 117/68; PULSE 72; RESP 15; TEMP 37.8; O2SAT 94
[2019-05-26 19:34] VITALS: PULSE 72; RESP 16; O2SAT 93
[2019-05-26 19:44] VITALS: BP 126/66; PULSE 76; RESP 13; TEMP 37.5; O2SAT 93
[2019-05-26] MEDS: TRAZODONE 100 MG TABLET 400 MG PO (20:06)
--- NOTE | 2019-05-26 21:44 | PC.NURSE ---
Pt, is disorientedx2 and is continuously trying to stand on own but can not walk without becoming week and sitting back on to the bed. Pt continuously told me to open the bathroom door to let him go to the bathroom xx15 I told him that he can not walk that far and would fall. Pt tried to use the urinal and told me that he needed to go to the bathroom while he was starting to void in the urinal. Pt then got upset that I was not letting him void but I kept letting him know that he will fall if Pt. tried to walk to the bathroom. I grabbed the commode and placed it next to his bed. Pt was able to get himself to the commode but as soon as he got on the commode he continuously asked me to go to the bathroom. I ensured him that he was on the bathroom and was unable to walk to the bathroom safely. I asked for assistance then got the Pt back into bed. Pt fell asleep when back into bed.
--- NOTE | 2019-05-26 21:57 | PC.NURSE ---
A&OX3, 94%RA. pt is very impulsive. CMS+. he his able to lift and bend his LLE, then he c/o pain 04/18. medicated pt with toradol, oxycodone and tylenol. pt able to sleep after pain med. when pt is awake while watching tv, he c/o pain 04/18, FLACC: 0. Pt is a two person to the [facility], does not use the walker properly. pt refused SCD. refused I.S. bed alarm active.
[2019-05-27] VITALS (9 sets, daily range): BP systolic 107–146; BP diastolic 62–77; PULSE 66–86; RESP 18–28; TEMP 35.9–37.9; O2SAT 93–96
[2019-05-27] MEDS: OXYCODONE IR 5 MG TABLET 10 MG PO ×6 (00:27→18:38)
[2019-05-27] MEDS: KETOROLAC 15 MG/ML VIAL 10 MG IV ×3 (03:24→23:51)
[2019-05-27] MEDS: ASPIRIN EC 81 MG TABLET PO ×2 (08:53→19:35)
[2019-05-27] MEDS: METOPROLOL IR 50 MG TABLET 100 MG PO ×2 (08:54→19:34)
[2019-05-27] MEDS: MULTIVITAMIN 1 TABLET 1 TAB PO (08:54)
[2019-05-27] MEDS: LORATADINE 10 MG TABLET PO (08:54)
[2019-05-27] MEDS: DOCUSATE 100 MG CAPSULE PO ×2 (08:54→19:35)
[2019-05-27] MEDS: ACETAMINOPHEN 325 MG TABLET 975 MG PO ×3 (08:55→19:34)
--- NOTE | 2019-05-27 09:07 | P.PN_ITS ---
Subjective Subjective Date Patient Seen: 05/27/19 Time Patient Seen: 09:07 Interval history: Patient states his pain is 10/10. Denies fever chills. No nausea vomiting. When asked about working with physical therapy yesterday patient states he was too busy checking it to the hospital for his procedure and was not able to participate with physical therapy. Patient is alert and oriented x4. Physical therapy states he did participate in physical therapy twice yesterday with max assist. Exam Vital Signs (past 8 hours): - 05/27/19 03:18 05/27/19 09:06 Temperature 99.3 F 98.0 F Pulse Rate 74 86 Respiratory Rate 22 28 H Blood Pressure 133/62 146/77 H Pulse Oximetry 93 96 Oxygen Delivery Method Room Air Oxygen Flow Rate 0 Narrative Exam Narrative: 74-year-old male resting in bed. Patient does appear uncomfortable. He is alert and oriented x4. Left knee dressing is clean, dry and intact. Scant moisture noted on the distal dressing. Left leg is warm and dry. Motor functions intact. Sensation grossly intact to light touch. Objective Labs Result Diagrams: 05/26/19 06:30 Assessment & Plan Post-op Postoperative Procedures: Procedures Operation Date: 04/04/19 10:45 <No data on this case meets the specified criteria> Operation Date: 05/25/19 13:45 Actual Procedures Side Surgeon p Total Knee Arthroplasty Left Mayte Villagomez MD Postop day 2 status post left total knee arthroplasty. Continue work on pain control. Patient has known history of confusion with several pain meds. M obilize with physical therapy. Patient currently max assist and will likely need care home facility placement.
--- NOTE | 2019-05-27 09:28 | PC.NURSE ---
Day shift: Pt refused SCD's. Made Pt aware that they can help keep blood clots away but still refused. Pt moaning and groaning this morning. Medicated per OCT and Pt has not made any noises for approx 15 minutes. MARITO Alex made aware of the pain control issues. Pt to work with PT/OT today. Will continue to monitor. Call light in reach. Bed alarm is on.
--- NOTE | 2019-05-27 10:23 | PT.IPTN ---
Current Diagnoses Unilateral post-traumatic osteoarthritis, left knee (05/25/19) Surgery Performed Operation Date: 04/04/19 10:45 <No data on this case meets the specified criteria> Operation Date: 05/25/19 13:45 Actual Procedures p Total Knee Arthroplasty(Left) - Mayte Villagomez MD Physical Therapy Treatment Note M2 PT-IP Current Condition Start: 05/26/19 08:33 Freq: NEEDED Status: Active Protocol: Document 05/26/19 14:26 JG (Rec: 05/26/19 15:46 JG [id number]) Physical Therapy Current Condition Current Condition Evaluation Date 05/26/19 Treatment Diagnosis L knee TKA, poor safety awareness, difficulty with mobility and ambulation Onset Date 05/25/19 M3 PT-IP Subjective Start: 05/26/19 08:33 Freq: NEEDED Status: Active Protocol: Document 05/27/19 10:40 GGD (Rec: 05/27/19 11:23 GGD [id number]) Subjective Physical Therapy Visit Type Type Treatment Note Visit Start Time 10:15 Visit Stop Time 10:40 Total Visit Minutes 25 Number of MICROBIOLOGICAL LABORATORY TECHNICIAN Visits 1 Physical Therapy Visit Comments Patient Comments Pt states his knee hurts. Therapy Pain Assessment Pain When Pain Assessed At Rest Pain Present Pain Present Pain Reported Location Left Knee Intensity 7 Scale Used Numeric (1 - 10) M4 PT-IP Mobility and Gait Start: 05/26/19 08:33 Freq: NEEDED Status: Active Protocol: Document 05/27/19 10:40 GGD (Rec: 05/27/19 11:23 GGD [id number]) PT-Bed Mobility Assessment Supine to Sit Supine to Sit Minimal Assistance,1 Person Assistance,Head of Bed Elevated,Bedrails Sit to Supine Sit to Supine Minimal Assistance,1 Person Assistance,Head of Bed Elevated,Bedrails Scooting Scooting to Edge of Bed Contact Guard Assistance PT-Transfer Assessment Sit to and From Stand Sit to and from Stand Contact Guard Assistance,1 Person Assistance,Use of Upper Extremities Equipment Transfer Assistive Device Gait Belt,Front Wheeled Walker Orthotic/Prosthetic Devices or Brace: No Transfers Transfer Destination Bed,Chair Transfer Ability Level of Assist Minimal Assistance,1 Person Assistance,Use of Upper Extremities Gait Assessment Gait Gait Assistance Required: Contact Guard Assist,Minimum Assistance,1 Person Assist Distance (Feet) 12 Assistive Devices Assistive Device Gait Belt,Front Wheeled Walker Orthotic/Prosthetic Devices or Brace: No Gait Deviations General Gait Pattern Antalgic,Decreased Stride Length,Decreased Feet Clearance,Flexed Trunk,Step-to Gait,Wide Based Gait Factors Limiting Gait Function Factors Limiting Gait Function Decreased Activity Tolerance, Decreased Strength,Difficulty Following Directions,Limited Range of Motion,Pain,Poor Balance,Poor Safety Awareness M5 PT-IP Objective Assessments Start: 05/26/19 08:33 Freq: NEEDED Status: Active Protocol: Document 05/26/19 08:48 HH (Rec: 05/26/19 12:08 [email or web address]) Orientation Orientation/Cognition Level of Alertness Confusional State Orientation Name,Age,Place,Situation Language Function Ability Hard of Hearing Safety Awareness Decreased Safety Awareness Memory Description Short Term Impaired Comments Pt is very easily agitated and confused. Has difficulty following simple commands. Gross Range of Motion Upper Extremity ROM Assessment Within Functional Limits Lower Extremity ROM Assessment Left Impaired Impairments did not assess due to his severe pain and increased confusion Strength Upper Extremity Strength Assessment Within Functional Limits Lower Extremity Strength Assessment Left Impaired Comments Strength Comments did not assess due to his severe pain and increased confusion M6 PT-IP Treatment Start: 05/26/19 08:33 Freq: NEEDED Status: Active Protocol: Document 05/27/19 10:40 GGD (Rec: 05/27/19 11:23 GGD [id number]) Physical Therapy Treatment Exercises Exercises Ankle Pumps,Quad Sets,Heel Slides,Seated Knee Flexion/ Extension Education Education Provided Safety M7 PT-IP Assessment and Plan Start: 05/26/19 08:33 Freq: NEEDED Status: Active Protocol: Document 05/27/19 10:40 GGD (Rec: 05/27/19 11:23 GGD [id number]) PT Summary Assessment and Plan Summary Assessment Summary Pt improving with mobility. He needed less assist. He had a low tolerance to gait. He is very impulsive and has poor safety awareness. If he continues to progress he may D /C home vs needing SNF. Frequency of Treatment Frequency Of Treatment Twice a Day Treatment Plan Physical Therapy Treatment Plan Bed Mobility Training,Transfer Training,Gait Training, Therapeutic Exercise,Balance Retraining,Post Op Education, Discharge Planning,Hot or Cold Pack,Neuromuscular Re-ed, Manual Therapy Recommendations To Nursing Amount of Assist Needed 2 Person Assist Discharge Recommendations PT Discharge Recommendations Home with 24/7 Assist,Home Health,SNF Rehab
[2019-05-27] MEDS: LEVALBUTEROL 1.25 MG/0.5 ML NEB INH (11:17)
[2019-05-27] MEDS: FUROSEMIDE 20 MG TABLET PO (11:18)
--- NOTE | 2019-05-27 11:28 | PC.NURSE ---
ANTHROPOLOGY AND ARCHEOLOGY INSTRUCTOR note: Patient got up and moved to the chair despite bed alarm without using his call light appropriately. He stated I'm fine, I don't need any help. I was so hot in that bed so I got up. The chair was discovered to be unlocked. I applied a chair alarm with a short cord clipped to his t-shirt and ensured that the alarm was indeed functional.
--- NOTE | 2019-05-27 11:29 | PC.NURSE ---
Day shift: Pt agrees to not get OOB w/o help from staff. Per MIGUELITO Ernst Pt did get OOB and moved himself to the chair in the room. Bed alrm was going and Pt did make it to chair. Pt has been asked to call staff numerous times. Pt sitting in chair and has taken the chair alarm off and refuses to have it attached to his gown at this time. This technical publications writer has talked to the Pt about not getting up w/o help from staff.
--- NOTE | 2019-05-27 13:35 | PT.IPTN ---
Current Diagnoses Unilateral post-traumatic osteoarthritis, left knee (05/25/19) Surgery Performed Operation Date: 04/04/19 10:45 <No data on this case meets the specified criteria> Operation Date: 05/25/19 13:45 Actual Procedures p Total Knee Arthroplasty(Left) - Mayte Villagomez MD Physical Therapy Treatment Note M2 PT-IP Current Condition Start: 05/26/19 08:33 Freq: NEEDED Status: Active Protocol: Document 05/26/19 14:26 JG (Rec: 05/26/19 15:46 JG [id number]) Physical Therapy Current Condition Current Condition Evaluation Date 05/26/19 Treatment Diagnosis L knee TKA, poor safety awareness, difficulty with mobility and ambulation Onset Date 05/25/19 M3 PT-IP Subjective Start: 05/26/19 08:33 Freq: NEEDED Status: Active Protocol: Document 05/27/19 13:35 GGD (Rec: 05/27/19 14:26 GGD [id number]) Subjective Physical Therapy Visit Type Type Treatment Note Visit Start Time 13:13 Visit Stop Time 13:36 Total Visit Minutes 23 Number of MOLD SANDER Visits 2 Physical Therapy Visit Comments Patient Comments Pt states he needs use the bathroom. Therapy Pain Assessment Pain When Pain Assessed At Rest Pain Present Pain Present Pain Reported M4 PT-IP Mobility and Gait Start: 05/26/19 08:33 Freq: NEEDED Status: Active Protocol: Document 05/27/19 13:35 GGD (Rec: 05/27/19 14:26 GGD [id number]) PT-Bed Mobility Assessment Supine to Sit Supine to Sit Standby Assistance,1 Person Assistance,Head of Bed Elevated Sit to Supine Sit to Supine Standby Assistance,1 Person Assistance,Head of Bed Elevated Scooting Scooting to Edge of Bed Contact Guard Assistance PT-Transfer Assessment Sit to and From Stand Sit to and from Stand Contact Guard Assistance,1 Person Assistance,Use of Upper Extremities Equipment Transfer Assistive Device Gait Belt,Front Wheeled Walker Orthotic/Prosthetic Devices or Brace: No Transfers Transfer Destination Bed,Toilet Transfer Ability Level of Assist Contact Guard Assistance,1 Person Assistance,Use of Upper Extremities Gait Assessment Gait Gait Assistance Required: Contact Guard Assist,Minimum Assistance,1 Person Assist Distance (Feet) 30 Assistive Devices Assistive Device Gait Belt,Front Wheeled Walker Orthotic/Prosthetic Devices or Brace: No Gait Deviations General Gait Pattern Antalgic,Decreased Stride Length,Decreased Feet Clearance,Flexed Trunk,Step-to Gait,Wide Based Gait Factors Limiting Gait Function Factors Limiting Gait Function Decreased Activity Tolerance, Decreased Strength,Difficulty Following Directions,Limited Range of Motion,Pain,Poor Balance,Poor Safety Awareness M5 PT-IP Objective Assessments Start: 05/26/19 08:33 Freq: NEEDED Status: Active Protocol: Document 05/26/19 08:48 HH (Rec: 05/26/19 12:08 [email or web address]) Orientation Orientation/Cognition Level of Alertness Confusional State Orientation Name,Age,Place,Situation Language Function Ability Hard of Hearing Safety Awareness Decreased Safety Awareness Memory Description Short Term Impaired Comments Pt is very easily agitated and confused. Has difficulty following simple commands. Gross Range of Motion Upper Extremity ROM Assessment Within Functional Limits Lower Extremity ROM Assessment Left Impaired Impairments did not assess due to his severe pain and increased confusion Strength Upper Extremity Strength Assessment Within Functional Limits Lower Extremity Strength Assessment Left Impaired Comments Strength Comments did not assess due to his severe pain and increased confusion M6 PT-IP Treatment Start: 05/26/19 08:33 Freq: NEEDED Status: Active Protocol: Document 05/27/19 13:35 GGD (Rec: 05/27/19 14:26 GGD [id number]) Physical Therapy Treatment Exercises Exercises Ankle Pumps,Quad Sets,Heel Slides,Seated Knee Flexion/ Extension M7 PT-IP Assessment and Plan Start: 05/26/19 08:33 Freq: NEEDED Status: Active Protocol: Document 05/27/19 13:35 GGD (Rec: 05/27/19 14:26 GGD [id number]) PT Summary Assessment and Plan Summary Assessment Summary Pt improving with mobility. He had improve safety and pace with gait with FWW. He need reminder that SPC not safe to use. He was impulsive with transfer to toilet. Pt needed less assist with bed mobility, he reports sleeping in chair at home. Pt will need stair mobility if D/C home. Frequency of Treatment Frequency Of Treatment Twice a Day Treatment Plan Physical Therapy Treatment Plan Bed Mobility Training,Transfer Training,Gait Training, Therapeutic Exercise,Balance Retraining,Post Op Education, Discharge Planning,Hot or Cold Pack,Neuromuscular Re-ed, Manual Therapy Recommendations To Nursing Amount of Assist Needed 2 Person Assist Discharge Recommendations PT Discharge Recommendations Home with 01/03 Assist,Home Health,SNF Rehab
--- NOTE | 2019-05-27 16:03 | PC.NURSE ---
Addendum entered by Sharmila Melendez R.N. 05/27/19 21:53: Pt becomes very agitated at times. Implusive, getting out of bed on own. notified. Call light w/in reach, bed alarm on for pt safety. Continue w/plan of care. Original Note: Pt resting quietly at this time. Denies discomfort. Lungs clear/diminished, SpO2 95% RA Aquacell dsg to left knee w/ shadow drainage in middle. Call light w/in reach, bed alarm on for pt safety.
[2019-05-27] MEDS: TRAZODONE 100 MG TABLET 400 MG PO (19:34)
[2019-05-28] MEDS: OXYCODONE IR 5 MG TABLET 10 MG PO ×2 (01:30→09:38)
[2019-05-28] MEDS: LORazepam 1 MG TABLET PO (01:30)
--- NOTE | 2019-05-28 06:02 | PC.NURSE ---
Addendum entered by Michell Vivas R.N. 05/28/19 06:30: Pt is very combative. Pushing his way out of bed. Not following directions, insisting on needing to get out of bed to leave despite barely being able to stand up 15min prior. He is becoming confrontational with the CARROTING MACHINE OFFBEARER. Addendum entered by Michell Vivas R.N. 05/28/19 06:21: Pt is unable to straighten out his left knee very much, he has been bending it all night having it lay crooked. Pt would not listen to staff about trying to mobilize his knee and not keep it contracted and locked into one spot. This morning he is unable to straighten out his leg without yelling out in pain. Original Note: Pt has managed to pull out 2 PIVs overnight while on a 1:1 status. This morning while trying to replace the IV for a second time now patient is refusing. I explained to him that he would not be able to get his Toradol IV pain med then and he said that was fine and that his pain wasn't that bad right now. Pt very uneasy on his feet. Unstable, almost falling down when trying to stand. He is very impulsive and anxious. Aquacel has some drainage at the distal end.
[2019-05-28 07:00] VITALS: BP 182/78; PULSE 82; RESP 24; TEMP 36.8; O2SAT 96
--- NOTE | 2019-05-28 08:27 | PM.PNPO.1 ---
Subjective Subjective Date Patient Seen: 05/28/19 Time Patient Seen: 08:27 Interval history: Rough night. He was quite agitated. His IVs were pulled out. At this point he is still having some nausea. Otherwise, pain is manageable. He is very frustrated and just wants to go home. Exam Vital Signs (past 8 hours): - 05/28/19 07:00 Temperature 98.2 F Pulse Rate 82 Respiratory Rate 24 Blood Pressure 182/78 H Pulse Oximetry 96 Oxygen Delivery Method Room Air Oxygen Flow Rate 0 Const Orientation: alert and oriented x3 Extrem Other: Left knee mild drainage at the bottom of the dressing. Soft calf. Easily wiggles ankle and toes. Objective Labs Result Diagrams: 05/26/19 06:30 Assessment & Plan Post-op Postoperative Procedures: Procedures Operation Date: 04/04/19 10:45 <No data on this case meets the specified criteria> Operation Date: 05/25/19 13:45 Actual Procedures Side Surgeon p Total Knee Arthroplasty Left Mayte Villagomez MD according to PT, he still needs to work on stairs this morning. They had recommended either 24 hour assistance at home or retirement. He adamantly refuses retirement and wants to go home now. His will be home with him 24 hours a day if anything were to happen. Plan for discharge if he passes PT this morning.
[2019-05-28 08:46] VITALS: PULSE 75; RESP 12; O2SAT 97
[2019-05-28] MEDS: LEVALBUTEROL 1.25 MG/0.5 ML NEB INH (08:46)
--- NOTE | 2019-05-28 08:49 | PM.DS.1 ---
History of Present Illness History of Present Illness Date Patient Seen: 05/28/19 Time Patient Seen: 08:49 Chief complaint: [id number] Narrative: 74-year-old male with left knee arthritis. He has had a history of multiple previous surgeries as well as a right total knee. He was admitted for left total knee replacement electively. Discharge Providers Provider Date of admission: 05/25/19 11:22 Discharge Date: 05/28/19 Primary care physician: Binu Ac MD Consults: 05/25/19 11:47 Consult to Anesthesiology Routine Comment: Consulting Provider: Anesthesiologist Reason for consultation: Regional block for post operative pain control 05/25/19 18:44 Consult to Discharge Planning Routine Comment: Consult to Physical Therapy Evaluate & Treat Comment: Physician Instructions: postop TKA protocol Consult to Respiratory Therapy Evaluate & Treat Comment: Physician Instructions: Evaluate and treat 05/26/19 11:40 Consult to Respiratory Therapy Evaluate & Treat Comment: Physician Instructions: Evaluate and treat Discharge provider: Beny Dacosta MD Summary Hospital Course Discharge Diagnosis: Left knee osteoarthritis Hospital Course: He was admitted the hospital on 05/25/2019 where he underwent a left total knee replacement will with Dr. Villagomez. Postoperatively he had issues with pain control but by postoperative day 3. The pain was under better control. He did have confusion and agitation at nighttime but was back alert and oriented during the day. Therapy felt that he either needed 24 hour help at home or nursing home. 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 Arrangements were made for discharge. Status at Discharge Cognitive/behavioral status at discharge: oriented Functional status at discharge: uses cane/walker Overall status at discharge: patient is progressing back to baseline Exam Vital Signs (past 8 hours): - 05/28/19 07:00 05/28/19 08:46 Temperature 98.2 F Pulse Rate 82 75 Respiratory Rate 24 12 Blood Pressure 182/78 H Pulse Oximetry 96 97 Oxygen Delivery Method Room Air Oxygen Flow Rate 0 Const Orientation: alert and oriented x3 Extrem Other: Left knee mild drainage at the bottom of the dressing. Soft calf, easily moves toes and ankle up and down. Objective Labs Result Diagrams: 05/26/19 06:30 Discharge Plan Discharge Plan Patient Disposition: Home Discharge comment: Follow-up [address] Villagomez Discharge Med Rec/Prescriptions Prescriptions: New docusate sodium [DOK] 100 mg Capsule 100 mg PO BID PRN (Reason: constipation) Qty: 30 RF: 0 ondansetron 4 mg Tablet,Disintegrating 4 mg sublingual Q4HR PRN (Reason: Nausea) Qty: 20 RF: 0 oxycodone 5 mg Tablet See Rx Instructions .ROUTE .COMPLEX PRN (Reason: Pain, Moderate (4-6)) Qty: 40 RF: 0 Continued multivitamin [Multiple Vitamins] 1 EACH tablet 1 tab PO DAILY Qty: 0 RF: 0 furosemide 20 MG tablet 20 mg PO DAILY PRN (Reason: Edema) Qty: 0 RF: 0 aspirin 325 MG tablet,delayed release (DR/EC) 325 mg PO BEDTIME Qty: 0 RF: 0 fluticasone propionate 16 GM spray,suspension 1 spray Intranasal DAILY Qty: 0 RF: 0 trazodone 100 mg tablet 400 tab PO BEDTIME RF: 0 levalbuterol tartrate [Xopenex HFA] 45 mcg/actuation HFA aerosol inhaler 1 puff INHALATION Q4-6H PRN (Reason: shortness of breath or wheezing) Qty: 15 RF: 0 metoprolol tartrate 100 mg tablet 100 mg PO BID RF: 0 levalbuterol HCl 1.25 mg/3 mL solution for nebulization 3 ml Inhalation Q6H PRN (Reason: Shortness Of Breath) RF: 0 Zyrtec 10 mg Capsule 10 mg PO DAILY RF: 0 Discontinued acetaminophen-codeine 300-30 mg tablet 1 tab PO Q4-6H PRN (Reason: Pain) RF: 0 Follow up/Referrals: Binu Ac MD [Primary Care Provider] - Provider Discharge Instructions Diet: Diet as Tolerated Activity: WBAT, work ROM L knee Skin/Wound/Dressing Care Report to your healthcare provider any signs of infection, such as:: chills, fever, night sweats, increased pain, unusual drainage and unusual redness Dressing: keep intact Visit Report/Discharge Packet Instructions: DI for Knee Replacement Stand Alone Forms: Surgery Discharge Discharge Data Primary Care Provider: Binu Ac
--- NOTE | 2019-05-28 09:27 | PT.IPTN ---
Current Diagnoses Unilateral post-traumatic osteoarthritis, left knee (05/25/19) Surgery Performed Operation Date: 04/04/19 10:45 <No data on this case meets the specified criteria> Operation Date: 05/25/19 13:45 Actual Procedures p Total Knee Arthroplasty(Left) - Mayte Villagomez MD Physical Therapy Treatment Note M2 PT-IP Current Condition Start: 05/26/19 08:33 Freq: NEEDED Status: Active Protocol: Document 05/26/19 14:26 JG (Rec: 05/26/19 15:46 JG [id number]) Physical Therapy Current Condition Current Condition Evaluation Date 05/26/19 Treatment Diagnosis L knee TKA, poor safety awareness, difficulty with mobility and ambulation Onset Date 05/25/19 M3 PT-IP Subjective Start: 05/26/19 08:33 Freq: NEEDED Status: Active Protocol: Document 05/28/19 08:56 CLB (Rec: 05/28/19 10:04 CLB [id number]) Subjective Physical Therapy Visit Type Type Treatment Note Visit Start Time 08:56 Visit Stop Time 09:27 Total Visit Minutes 31 Number of SCRAP SEPARATOR Visits 3 Physical Therapy Visit Comments Patient Comments Pt states I am going home. Therapy Pain Assessment Pain When Pain Assessed At Rest Pain Present Pain Present Pain Reported M4 PT-IP Mobility and Gait Start: 05/26/19 08:33 Freq: NEEDED Status: Active Protocol: Document 05/28/19 08:56 CLB (Rec: 05/28/19 10:04 CLB [id number]) PT-Bed Mobility Assessment Supine to Sit Supine to Sit Standby Assistance,1 Person Assistance,Head of Bed Elevated Sit to Supine Sit to Supine Standby Assistance,1 Person Assistance,Head of Bed Elevated Scooting Scooting to Edge of Bed Contact Guard Assistance PT-Transfer Assessment Sit to and From Stand Sit to and from Stand Contact Guard Assistance,1 Person Assistance,Use of Upper Extremities Equipment Transfer Assistive Device Gait Belt,Front Wheeled Walker Orthotic/Prosthetic Devices or Brace: No Transfers Transfer Destination Chair,Toilet Transfer Ability Level of Assist Contact Guard Assistance,1 Person Assistance,Use of Upper Extremities Comments Mobility Comments Pt is impulsive needing cues to keep feet inside walker before standing and cues for hand placement. Gait Assessment Gait Gait Assistance Required: Contact Guard Assist,1 Person Assist Distance (Feet) 30 Assistive Devices Assistive Device Gait Belt,Front Wheeled Walker Orthotic/Prosthetic Devices or Brace: No Gait Deviations General Gait Pattern Antalgic,Decreased Stride Length,Decreased Feet Clearance,Flexed Trunk,Step-to Gait,Wide Based Gait Factors Limiting Gait Function Factors Limiting Gait Function Decreased Activity Tolerance, Decreased Strength,Difficulty Following Directions,Limited Range of Motion,Pain,Poor Balance,Poor Safety Awareness Comments Gait Comments Pt ambulated in room to BR needing cues to slow down. Pt refused further gait training and only walked in room and to the BR. Stair Climbing Assessment Evaluation Level of Assist On Stairs Contact Guard Assistance, Minimal Assistance,1 Person Assistance Devices Stair Climbing Assistive Devices Front Wheel Walker Technique/Endurance Stair Climbing Direction Ascend and Descend Stair Climbing Technique Step to Step Number of Steps Climbed 1 Stair Climbing Set # Repetitions (reps) 2 Comments Stair Climbing Comments Pt has two platform steps to enter his home according to his . Pt puts bends over and puts forearms on walker to get up step with CGA/Min A. M5 PT-IP Objective Assessments Start: 05/26/19 08:33 Freq: NEEDED Status: Active Protocol: Document 05/26/19 08:48 HH (Rec: 05/26/19 12:08 [id number]) Orientation Orientation/Cognition Level of Alertness Confusional State Orientation Name,Age,Place,Situation Language Function Ability Hard of Hearing Safety Awareness Decreased Safety Awareness Memory Description Short Term Impaired Comments Pt is very easily agitated and confused. Has difficulty following simple commands. Gross Range of Motion Upper Extremity ROM Assessment Within Functional Limits Lower Extremity ROM Assessment Left Impaired Impairments did not assess due to his severe pain and increased confusion Strength Upper Extremity Strength Assessment Within Functional Limits Lower Extremity Strength Assessment Left Impaired Comments Strength Comments did not assess due to his severe pain and increased confusion M6 PT-IP Treatment Start: 05/26/19 08:33 Freq: NEEDED Status: Active Protocol: Document 05/28/19 08:56 CLB (Rec: 05/28/19 10:04 CLB [id number]) Physical Therapy Treatment Exercises Exercises Ankle Pumps,Quad Sets,Heel Slides,Seated Knee Flexion/ Extension Education Education Provided Safety Other Treatments Other Treatment Performed Discussed with pt and transferring into/out of vehicle. Also reinforced ankle pumps and the benefit of doing them every waking hour. M7 PT-IP Assessment and Plan Start: 05/26/19 08:33 Freq: NEEDED Status: Active Protocol: Document 05/28/19 08:56 CLB (Rec: 05/28/19 10:04 CLB [id number]) PT Summary Assessment and Plan Summary Assessment Summary Pt able to get to EOB with CGA of LLE. Pt is impulsive and required cues for safety during sit-stand, transfers, stairs and gait. Pt trialled stairs but was very impulsive as he hurries through all tasks but refused any further direction for stair training and refused gait training and only ambulated in room. Pt would benefit from another day in hospital to further gait training but pt and are refusing stating he would be better at home. Discussed with pt safety during all mobility and reminded him to slow down . and pt insist pt is going home today. Goals Bed Mobility Goal Contact Guard Assistance Transfer Goal Contact Guard Assistance,Front Wheeled Walker Gait Goal Contact Guard Assistance,Front Wheel Walker Gait Distance 100 Other Goals 2 TIERRA with railing on L side Days to Meet Goals 5 Frequency of Treatment Frequency Of Treatment Twice a Day Treatment Plan Physical Therapy Treatment Plan Bed Mobility Training,Transfer Training,Gait Training, Therapeutic Exercise,Balance Retraining,Post Op Education, Discharge Planning,Hot or Cold Pack,Neuromuscular Re-ed, Manual Therapy Other Recommendations and Next Treatment bed mob, gait training, Focus transfer training, stair training as ruba Recommendations To Nursing Amount of Assist Needed 2 Person Assist Discharge Recommendations PT Discharge Recommendations Home with 01/03 Assist,Home Health,SNF Rehab Equipment Needed for Home Before shower seat Discharge
[2019-05-28] MEDS: ACETAMINOPHEN 325 MG TABLET 975 MG PO (09:39)
[2019-05-28] MEDS: LORATADINE 10 MG TABLET PO (09:40)
[2019-05-28] MEDS: ASPIRIN EC 81 MG TABLET PO (09:40)
[2019-05-28] MEDS: ONDANSETRON 4 MG ODT PO (09:40)
[2019-05-28] MEDS: METOPROLOL IR 50 MG TABLET 100 MG PO (09:40)
[2019-05-28] MEDS: MULTIVITAMIN 1 TABLET 1 TAB PO (09:40)
[2019-05-28] MEDS: DOCUSATE 100 MG CAPSULE PO (09:40)
--- NOTE | 2019-05-28 10:52 | CM.DANOTE ---
DCP/continued: Received notification from Ortho team that patient medically stable for d/c home today. Spoke with therapy this AM and they report patient would benefit from SNF but refusing. ELEMENTARY MATH TUTOR/Sandra reports that therapy has spoken with both patient and spouse, current plan is to d/c home with 24/7 assistance. Met with patient and spouse/Cristel at bedside explained role. Spouse in agreement for patient to come home today. She plans to call her adult children to assist. Patient is [facility] and has outpatient therapy scheduled at [facility]. Spouse inquiring about HH? Notified spouse that MD did not order HH or sign F2F therefore, if she feels it's needed it is recommended that she call Dr. Villagomez's office on weekday. Spouse reports that she will see how it goes at home. She believes patient will do much better mentally, physically, and emotionally at home. P: Home today. Patient has needed DME and outpatient therapy arranged. Patient declined SNF. CELESTINA Berg
--- NOTE | 2019-05-28 11:02 | PC.NURSE ---
Day shift: Pt left unit in WC with his spouse to private car and Rupa FARLEY took him. Paperwork went over with Pt and Pt's spouse and Pt said it was OK for his spouse to sign the paperwork. Spouse has scrips and all Pt's belongings. Pt insisted on going home today to his own home. MD was ok with this as well. Pt did ok with PT and Pt's pain was still present today but not as much pain as yesterday. VS WNL. RA 97%. Per Pt and Pt's spouse Pt does better when he is at his own home. Aquacel intact with small amount. Spouse stated that she understands to call ortho office with any changes per printout take-home material.
== END 2019-05-28 11:09 | disposition home or self-care (01) | DRG 470 ==
PROVIDERS: Admitting Provider Orthopaedic Surgery; PCP Internal Medicine; Visit Provider Orthopaedic Surgery
PROC: 0SRD0JZ Replacement of Left Knee Joint with Synthetic Substitute, Open Approach (ICD-10-PCS; CPT 27447; principal; 2019-05-25 13:45)
DX: M17.32 Unilateral post-traumatic osteoarthritis, left knee (principal); Z96.651 Presence of right artificial knee joint; R11.0 Nausea; R41.0 Disorientation, unspecified; G89.18 Other acute postprocedural pain
CPT/HCPCS: 36415; 73560; 85014; 85018; 94640; 94762; 97110; 97116; 97163; 97530; C1776; C9290; J0690; J1170; J1885; J2250; J2704; J3010; J3410; J7614

== ENCOUNTER 2019-06-20 11:32 | Emergency (ER) | payer OTHER, SELFPAY ==
[2019-05-25 19:29] VITALS: BMI 30.9
[2019-06-20 11:57] VITALS: BP 137/70; PULSE 82; RESP 13; TEMP 37.1; O2SAT 96
[2019-06-20 12:30] VITALS: BP 136/92; PULSE 100; O2SAT 94
--- NOTE | 2019-06-20 12:38 | ED_ITS ---
HPI - URI/Sore Throat General Chief Complaint: Upper Respiratory Symptoms Stated Complaint: l knee swollen/irritated,confusion post op Time Seen by Provider: 06/20/19 12:26 Source: patient and family Mode of arrival: Ambulatory Limitations: no limitations History of Present Illness HPI Narrative: 74-year-old male here for evaluation several weeks status post left total knee arthroplasty. He has been doing physical therapy. He is now ambulatory with just a cane. He is here with his . Here for several reas ons 1 to include pain in his left knee. He states that he has been taking pain medication but he has run out of those medications. The initial prescription was provided by his surgical provider a follow-up prescription was provided by his primary provider. His also states that he seemed confused this morning. Seemed to be hallucinating. His also thought that he potentially was slurring his words this morning. Patient was trying to operate the phone this morning and inadvertently call 911. He was transported to the emergency department by his . No symptoms seemed to have all resolved however she thinks that he is still just a slight bit confused. There is also some concern that potentially he was taking unknown quantities of Benadryl. He also takes trazodone at night to help him sleep. There is also concerned about other antihistamines in cough and cold preparation he has been taking his he was concerned about pneumonia secondary to a cough and a fever last evening. Related Data Home Medications Medication Instructions Recorded Confirmed multivitamin [Multiple Vitamins] 1 tab PO DAILY #0 12/21/16 05/25/19 furosemide 20 mg PO DAILY PRN #0 08/11/17 05/25/19 aspirin 325 mg PO BEDTIME #0 11/03/17 05/25/19 fluticasone propionate 1 spray INTRANASAL DAILY #0 11/03/17 05/25/19 trazodone 400 tab PO BEDTIME 12/10/17 05/25/19 levalbuterol HCl 3 ml INHALATION Q6H PRN 10/17/18 05/25/19 metoprolol tartrate 100 mg PO BID 10/17/18 05/25/19 Zyrtec 10 mg PO DAILY 05/23/19 05/25/19 Previous Rx's Medication Instructions Recorded levalbuterol tartrate [Xopenex HFA] 1 puff INHALATION Q4-6H PRN #15 06/23/18 gram docusate sodium [DOK] 100 mg PO BID PRN #30 cap 05/28/19 ondansetron 4 mg SUBLINGUAL Q4HR PRN #20 tab 05/28/19 oxycodone See Rx Instructions .ROUTE 05/28/19 .COMPLEX PRN #40 tab azithromycin See Rx Instructions .ROUTE 06/20/19 .COMPLEX #6 tab oxycodone-acetaminophen [Percocet] 1 tab PO Q8H PRN #7 tab 06/20/19 Allergies Allergy/AdvReac Type Severity Reaction Status Date / Time celecoxib [CELECOXIB] Allergy Mild SWELLING Verified 05/25/19 12:24 latex [LATEX] Allergy Mild RASH Verified 05/25/19 12:24 W/EXTENDED EXPOSURE Sulfa (Sulfonamide Allergy Mild RASH Verified 05/25/19 12:24 Antibiotics) [SULFA (SULFONAMIDE ANTIBIOTICS)] varenicline [VARENICLINE] AdvReac Severe Paranoia Verified 05/25/19 12:24 buprenorphine [BUPRENORPHINE] AdvReac Mild NAUSEA, Verified 05/25/19 12:24 DIZZINESS hyoscyamine [HYOSCYAMINE] AdvReac Mild LEG Verified 05/25/19 12:24 JERKING, ANXIETY, NAUSEA W/I MINUTES Tvcmvpp-Hyj-Kqv Reductase AdvReac Mild WEAK Verified 05/25/19 12:24 Inhibitor MUSCLES [XFMMOUO-SOH-GLU REDUCTASE INHIBITOR] diazepam [From Valium] AdvReac Confusion Verified 05/26/19 10:42 hydromorphone AdvReac Confusion Verified 05/26/19 10:41 morphine AdvReac Confusion Verified 05/26/19 10:42 Review of Systems Constitutional Constitutional: Reports fever(s) and Denies weakness Eyes Eyes: Denies change in vision ENT Ears, Nose, Mouth, and Throat: Denies dizziness Cardiovascular Cardiovascular: Denies chest pain Respiratory Respiratory: Reports chest congestion and Reports cough Gastrointestinal Gastrointestinal: Denies abdominal pain, Denies nausea and Denies vomiting Musculoskeletal Musculoskeletal: Denies abnormal gait and Denies tingling Comments: Left knee pain Integumentary/Breasts Comments: Surgical incision left knee Neurologic Neurologic: Reports abnormal speech, Denies abnormal gait, Reports behavioral changes, Reports confusion, Denies dizziness, Denies seizure-like activity, Den ies sensory deficit, Denies tingling and Denies weakness Psychiatric Psychiatric: Reports behavioral changes and Reports confusion Hematologic/Lymphatic Hematologic/Lymphatic: Denies easy bleeding and Denies easy bruising Patient History Medical History Achalasia (Chronic) Anginal pain (Acute) Asthma (Acute) Atrial fibrillation (Chronic) Cervical spinal stenosis (Chronic) Chronic obstructive pulmonary disease (Chronic 10/23/16) COPD (chronic obstructive pulmonary disease) (Chronic) Coronary artery disease (Acute) History of aortic dissection (Acute ~08/2007) Hypertension (Chronic) Ischemic cardiomyopathy (Acute) Neck pain, chronic (Chronic) Ventricular bigeminy (Acute) Surgical History (Updated 05/23/19 @ 12:38 by Fern Rosales RN) H/O arthroscopic knee surgery (Chronic 11/15/17) History of arthroplasty of right knee (Acute) History of bilateral total hip arthroplasty (Acute) History of cardiac cath (Acute ~03/2014) History of esophageal surgery (Acute) History of incision and drainage (Acute ~2016) History of prior ablation treatment (Acute ~03/2017) History of surgery (Acute) Hx of cholecystectomy (Acute) Hx of hernia repair (Acute) Hx of sinus surgery (Acute) S/P CABG x 3 (Acute ~08/2007) S/P cervical spinal fusion (Acute) S/P lumbar fusion (Acute) Social History household members: spouse Smoking Status: Former smoker alcohol intake: current substance use type: does not use alcohol intake frequency: a few times a week Substance Use Type: does not use Exam Initial Vital Signs Initial Vital Signs: Vital Signs Temperature 98.7 F 06/20/19 11:57 Pulse Rate 82 06/20/19 11:57 Respiratory Rate 13 06/20/19 11:57 Blood Pressure 137/70 06/20/19 11:57 Pulse Oximetry 96 06/20/19 11:57 Const General: cooperative and comfortable Orientation: alert, awake and oriented x3 HENMT Head: normal to inspection and normocephalic Resp Effort & Inspection: normal respiratory effort Auscultation: clear to auscultation bilaterally Cardio Rate: regular rate Rhythm: regular rhythm Skin Other: Surgical incision left anterior knee consistent with stated history Neuro General: alert, awake and oriented x3 Cranial Nerves: CN's II-XI intact bilaterally Speech: speech normal Motor: muscle tone normal throughout Sensory Exam: no sensory deficits noted Extrem General: normal to inspection and capillary refill normal Other: Patient able to get his left knee in full extension and flex past 90 Psych Appearance: grossly normal and well kempt Course Orders Ordered: ED Orders 06/20/19 12:43 XR knee LT 3V Stat 06/20/19 12:44 XR chest 2V Stat 06/20/19 13:54 Basic Metabolic Panel Stat C-Reactive Protein Quant Stat Complete Blood Count AUTO DIFF Stat Erythrocyte Sedimentation Rate Stat Procalcitonin Stat Discontinued Medications Hydrocodone Bitart/Acetaminophen ([place] 5/325) 1 tab PO NOW ONE Stop: 06/20/19 12:44 Last Admin: 06/20/19 13:02 Dose: 1 tab Documented by: RASHAWN Vital Signs Vital signs: Vital Signs - 8 hr 06/20/19 11:57 06/20/19 12:30 06/20/19 14:57 Temperature 98.7 F Pulse Rate 82 100 H 73 Respiratory Rate 13 18 Blood Pressure 137/70 Blood Pressure [Right Arm] 136/92 H 163/84 H Pulse Oximetry 96 94 96 MDM - URI/Sore Throat Lab Data Attestation: I reviewed the patient's lab results. Result diagrams: 06/20/19 13:54 06/20/19 13:54 Labs: Lab Results 06/20/19 06/20/19 06/20/19 Range/Units 13:54 13:54 13:54 WBC 8.9 (4.5-11.0) X10^3/uL RBC 4.31 L (4.5-5.9) X10^6/uL Hgb 13.7 (13.5-17.5) g/dL Hct 39.7 L (41-53) % MCV 92.2 (80-100) fL MCH 31.8 (26-34) PG MCHC 34.5 (30-36) % RDW 13.5 (11.6-14.8) % Plt Count 328 (150-400) X10^3/uL Neut % (Auto) 63.2 (50-75) % Lymph % (Auto) 17.5 L (25-40) % [place] % (Auto) 9.8 (3-14) % Eos % (Auto) 8.4 H (2-4) % Baso % (Auto) 1.1 (0-2) % Neut # (Auto) 5600 (7574-4430) /uL Lymph # (Auto) 1600 (9220-6178) /uL Sterling # (Auto) 900 (0-900) /uL Eos # (Auto) 700 H (0-450) /uL Baso # (Auto) 100 (0-100) /uL ESR 5 (0-15) MM/HR Sodium 139 (137-145) mmol/L Potassium 4.6 (3.4-5.1) mmol/L Chloride 101 (98-107) mmol/L Carbon Dioxide 29 (22-32) mmol/L BUN 17 (9-20) mg/dL Creatinine 0.90 (0.66-1.25) mg/dL Estimated GFR > 60.0 (>60) mL/min BUN/Creatinine Ratio 18.9 (6-22) Glucose 90 (80-110) mg/dL Calcium 9.3 (8.4-10.2) mg/dL C-Reactive Protein 2.3 H (<1.0) mg/dL Procalcitonin < 0.05 (<0.5) ng/mL Imaging Data Xray knee: Radiologist's impression: [address] [address] XRay Report Signed Patient: Karthikeyan Yo [facility]#: [id number] : 5Acct:[id number] Age/Sex: 74 / MDate of Service: 06/20/19 Loc: ED Accession Number: [id number] Procedure: XR knee LT 3V Ordering Provider: Karthikeyan Prakash D.O. PROCEDURE: XR KNEE LT 3V INDICATIONS: pain post op TECHNIQUE: 3 views of the knee were acquired. [facility], [facility], 05/25/2019, 17:25. FINDINGS: Bones: No fractures or dislocations. No suspicious bony lesions. Left knee arthroplasty hardware is seen. No findings of hardware failure or hardware loosening are seen. Soft tissues: No joint effusion. No suspicious soft tissue calcifications. Atherosclerotic calcification is noted. IMPRESSION: Unremarkable left knee arthroplasty hardware. Dictated by: Arnie Cook M.D. on 06/20/2019 at 12:29 Approved by: Arnie Cook M.D. on 06/20/2019 at 12:30 Chest x-ray: Radiologist's impression: [address] [address] XRay Report Signed Patient: Karthikeyan Yo [facility]#: [id number] : 5Acct:[id number] Age/Sex: 74 / MDate of Service: 06/20/19 Loc: ED Accession Number: [id number] Procedure: XR chest 2V Ordering Provider: Karthikeyan Prakash D.O. PROCEDURE: XR CHEST 2V INDICATIONS: Clinical concern for PNA TECHNIQUE: 2 views of the chest were acquired. COMPARISON: [facility], CR, XR KNEE LT 3V, 06/20/2019, 13:13. [facility], CT, CT CHEST WO CON, 12/23/2018, 10:07. [facility], CR, XR CHEST 1V, 01/08/2019, 13:29. [facility], CR, XR CHEST 1V, 03/11/2019, 5:20. FINDINGS: Surgical changes and devices: Post CABG changes are seen. Lungs and pleura: Lungs are clear. No pleural effusions or pneumothorax. Mediastinum: Mediastinal contours are normal. Heart size is normal. Bones and chest wall: No suspicious bony abnormalities. Age-appropriate bony degenerative changes are seen. Soft tissues appear unremarkable. IMPRESSION: Clear lungs. Postoperative and degenerative changes are seen. Dictated by: Arnie Cook M.D. on 06/20/2019 at 12:28 Approved by: Arnie Cook M.D. on 06/20/2019 at 12:29 MDM Narrative Medical decision making narrative: Patient's labs are unremarkable and he does have an underlying lung pathology with multiple inhaled medications. He has had a productive cough and feels like he has pneumonia. I feel given his underlying lung issues that starting him on antibiotics is not unreasonable. The pain in his left knee does not appear to be the result of a septic joint. I do feel that this is just a pain control issue. Will send home with just a very short course of pain medication. He was informed he should be taking this at night or after a particularly hard physical therapy appointment. The confusion is most likely related to the medications he was taking. His states he takes multiple medications to include Benadryl and also trazodone and then also the Tylenol 3 that he has at home. I have low suspicion for CVA. This could potentially be a TIA however I feel that given his medication issues that this is most likely the cause. Informed the patient and the that they should contact her primary doctor about this. They were given return precautions. They expressed understanding and agreement with plan. Discharge Plan Departure Patient Disposition: Home Clinical Impression: Post-operative pain Pneumonia Qualifiers: Pneumonia type: due to unspecified organism Laterality: unspecified laterality Lung location: unspecified part of lung Qualified Code(s): J18.9 - Pneumonia, unspecified organism Discharge Date/Time: 06/20/19 15:05 Instructions: DI for Taking Pain Medication Activity Restrictions/Additional Instructions: Take the medications as directed. I also recommend that you avoid any additional medications that could potentially cause confusion such as the Benadryl or other [id number]-epzydge cough and cold preparations. Contact his ope rative knee surgeon for follow-up. Also recommend you contact his primary provider for follow-up. Return to the emergency department for any new or worsening symptoms Prescriptions: New azithromycin 250 mg tablet See Rx Instructions .ROUTE .COMPLEX Qty: 6 RF: 0 oxycodone-acetaminophen [Percocet] 5-325 mg tablet 1 tab PO Q8H PRN (Reason: pain) Qty: 7 RF: 0 No Action multivitamin [Multiple Vitamins] 1 EACH tablet 1 tab PO DAILY Qty: 0 RF: 0 furosemide 20 MG tablet 20 mg PO DAILY PRN (Reason: Edema) Qty: 0 RF: 0 aspirin 325 MG tablet,delayed release (DR/EC) 325 mg PO BEDTIME Qty: 0 RF: 0 fluticasone propionate 16 GM spray,suspension 1 spray Intranasal DAILY Qty: 0 RF: 0 trazodone 100 mg tablet 400 tab PO BEDTIME RF: 0 levalbuterol tartrate [Xopenex HFA] 45 mcg/actuation HFA aerosol inhaler 1 puff INHALATION Q4-6H PRN (Reason: shortness of breath or wheezing) Qty: 15 RF: 0 metoprolol tartrate 100 mg tablet 100 mg PO BID RF: 0 levalbuterol HCl 1.25 mg/3 mL solution for nebulization 3 ml Inhalation Q6H PRN (Reason: Shortness Of Breath) RF: 0 Zyrtec 10 mg Capsule 10 mg PO DAILY RF: 0 docusate sodium [DOK] 100 mg Capsule 100 mg PO BID PRN (Reason: constipation) Qty: 30 RF: 0 ondansetron 4 mg Tablet,Disintegrating 4 mg sublingual Q4HR PRN (Reason: Nausea) Qty: 20 RF: 0 oxycodone 5 mg Tablet See Rx Instructions .ROUTE .COMPLEX PRN (Reason: Pain, Moderate (4-6)) Qty: 40 RF: 0 Referrals: Binu Ac MD [Primary Care Provider] - Stand Alone Forms: Work Release Note
--- NOTE | 2019-06-20 12:43 | DI.RAD.S_ITS ---
PROCEDURE: XR KNEE LT 3V INDICATIONS: pain post op TECHNIQUE: 3 views of the knee were acquired. COMPARISON: [facility] [place], CR, XR KNEE ARTHRITIC SERIES LT, 06/09/2019, 14:21. [facility], CR, XR CHEST 2V, 06/20/2019, 13:10. [facility], CR, XR KNEE LT 1TO2V, 05/25/2019, 17:25. FINDINGS: Bones: No fractures or dislocations. No suspicious bony lesions. Left knee arthroplasty hardware is seen. No findings of hardware failure or hardware loosening are seen. Soft tissues: No joint effusion. No suspicious soft tissue calcifications. Atherosclerotic calcification is noted. IMPRESSION: Unremarkable left knee arthroplasty hardware. Dictated by: Arnie Cook M.D. on 06/20/2019 at 12:29 Approved by: Arnie Cook M.D. on 06/20/2019 at 12:30
--- NOTE | 2019-06-20 12:44 | DI.RAD.S_ITS ---
PROCEDURE: XR CHEST 2V INDICATIONS: Clinical concern for PNA TECHNIQUE: 2 views of the chest were acquired. COMPARISON: [facility], CR, XR KNEE LT 3V, 06/20/2019, 13:13. [facility], CT, CT CHEST WO CON, 12/23/2018, 10:07. [facility], CR, XR CHEST 1V, 01/08/2019, 13:29. [facility], CR, XR CHEST 1V, 03/11/2019, 5:20. FINDINGS: Surgical changes and devices: Post CABG changes are seen. Lungs and pleura: Lungs are clear. No pleural effusions or pneumothorax. Mediastinum: Mediastinal contours are normal. Heart size is normal. Bones and chest wall: No suspicious bony abnormalities. Age-appropriate bony degenerative changes are seen. Soft tissues appear unremarkable. IMPRESSION: Clear lungs. Postoperative and degenerative changes are seen. Dictated by: Arnie Cook M.D. on 06/20/2019 at 12:28 Approved by: Arnie Cook M.D. on 06/20/2019 at 12:29
[2019-06-20] MEDS: HYDROCODONE/ACET 5/325 TABLET 1 TAB PO (13:02)
[2019-06-20 14:02] LABS: Add Manual Diff / Slide Review NO; Basophils Absolute Auto 100 /uL (0-100); Basophils Percent Auto 1.1 % (0-2); Eosinophils Absolute Auto 700 /uL (0-450); Eosinophils Percent Auto 8.4 % (2-4); Hematocrit 39.7 % (41-53); Hemoglobin 13.7 g/dL (13.5-17.5); Lymphocytes Absolute Auto 1600 /uL (1100-4500); Lymphocytes Percent Auto 17.5 % (25-40); Mean Corpuscular HGB Conc 34.5 % (30-36); Mean Corpuscular Hemoglobin 31.8 PG (26-34); Mean Corpuscular Volume 92.2 fL (80-100); Monocytes Absolute Auto 900 /uL (0-900); Monocytes Percent Auto 9.8 % (3-14); Neutrophils Absolute Auto 5600 /uL (1500-7000); Neutrophils Percent Auto 63.2 % (50-75); Platelet Count 328 X10^3/uL (150-400); Red Blood Cell Count 4.31 X10^6/uL (4.5-5.9); Red Cell Distribution Width 13.5 % (11.6-14.8); White Blood Cell Count 8.9 X10^3/uL (4.5-11.0)
[2019-06-20 14:15] LABS: BUN Creatinine Ratio 18.9 (6-22); Blood Urea Nitrogen 17 mg/dL (9-20); C-Reactive Protein Quant 2.3 mg/dL (<1.0); Calcium 9.3 mg/dL (8.4-10.2); Carbon Dioxide 29 mmol/L (22-32); Chloride 101 mmol/L (98-107); Estimated Glomerular Filt Rate > 60.0 mL/min (>60); Glucose 90 mg/dL (80-110); HEMOLYSIS < 15 (0-50); Potassium 4.6 mmol/L (3.4-5.1); Sodium 139 mmol/L (137-145)
[2019-06-20 14:22] LABS: Erythrocyte Sedimentation Rate 5 MM/HR (0-15)
[2019-06-20 14:31] LABS: Procalcitonin < 0.05 ng/mL (<0.5)
[2019-06-20 14:57] VITALS: BP 163/84; PULSE 73; RESP 18; O2SAT 96
== END 2019-06-20 15:05 | disposition home or self-care (01) ==
PROVIDERS: Emergency Provider Emergency Medicine; PCP Internal Medicine
DX: J18.9 Pneumonia, unspecified organism (principal); G89.18 Other acute postprocedural pain; M25.562 Pain in left knee
CPT/HCPCS: 36415; 71046; 73562; 80048; 84145; 85025; 85651; 86140; 99282; 99284

== ENCOUNTER 2019-10-20 08:07 | Emergency (ER) | payer OTHER, SELFPAY ==
[2019-05-25 19:29] VITALS: BMI 30.9
[2019-10-20] VITALS (10 sets, daily range): BP systolic 131–219; BP diastolic 68–95; PULSE 18–100; RESP 18–26; TEMP 37.1; O2SAT 93–97; BMI 30.3
--- NOTE | 2019-10-20 08:39 | DI.RAD.S_ITS ---
PROCEDURE: XR CHEST 2V INDICATIONS: cough, asthma, wheezing, conscious sedation yesterday TECHNIQUE: 2 views of the chest were acquired. COMPARISON: [facility], CR, XR CHEST 2V, 06/20/2019, 13:10. FINDINGS: Surgical changes and devices: Sternal wires and cervical fixation plate are noted. Lungs and pleura: Lungs are clear. No pleural effusions or pneumothorax. Mediastinum: Mediastinal contours are normal. Heart size is mildly prominent. Bones and chest wall: No suspicious bony abnormalities. Soft tissues appear unremarkable. IMPRESSION: No consolidations or effusions. Dictated by: Sanam Dickerson M.D. on 10/20/2019 at 9:11 Approved by: Sanam Dickerson M.D. on 10/20/2019 at 9:12
[2019-10-20] MEDS: ALBUTEROL/IPRATROPIUM 3 ML AMPUL INH (08:40)
--- NOTE | 2019-10-20 08:49 | ED_ITS ---
HPI - SOB/Dyspnea General Chief Complaint: Shortness of Breath/Dyspnea Stated Complaint: BREATHING TREATMENT Time Seen by Provider: 10/20/19 08:28 Source: patient Mode of arrival: Ambulatory History of Present Illness HPI Narrative: The patient is a 74-year-old male with a history of asthma and COPD who states that he had pneumonia 3 weeks ago. He comes into the emergency department today because he has developed increasing cough and wheezing with dyspnea on exertion and shortness of breath. He denies any significant swelling of his legs. He states that yesterday he had an upper and lower GI and he developed shortness of breath after he received conscious sedation. The procedure was performed at [facility]. He states that he has had 3 days of a cough with shortness of breath and wheezing. He states that he can only use Xopenex because of his heart disease. He denies a history of having had a heart attack congestive heart failure stroke or diabetes mellitus. He admits to coronary artery bypass graft surgery in the past. He denies any fever travel outside the [facility] or exposure to anyone with confirmed [place] at 19. His cough has been productive of a yellow green tinged sputum that is mostly clear. He has had no hemoptysis. He has a history of atrial fibrillation but is not on any anticoagulation. He denies any chest pain palpitations or dizziness. He has had no headache fever chills or sweats. He does not smoke cigarettes. He denies any abdominal pain nausea vomiting diarrhea change in bowel habits. He has had no urinary symptoms. Related Data Home Medications Medication Instructions Recorded Confirmed multivitamin [Multiple Vitamins] 1 tab PO DAILY #0 12/21/16 05/25/19 aspirin 325 mg PO BEDTIME #0 11/03/17 05/25/19 fluticasone propionate 1 spray INTRANASAL DAILY #0 11/03/17 05/25/19 trazodone 300 tab PO BEDTIME 12/10/17 10/20/19 levalbuterol HCl 3 ml INHALATION Q6H PRN 10/17/18 10/20/19 metoprolol tartrate 100 mg PO BID 10/17/18 05/25/19 Zyrtec 10 mg PO DAILY 05/23/19 05/25/19 acetaminophen-codeine 1 - 2 tab PO Q6H PRN MDD 5 10/20/19 10/20/19 beclomethasone dipropionate [Qvar 2 inh INHALATION BID 10/20/19 10/20/19 RediHaler] clonidine HCl 0.1 - 0.2 mg PO Q8H PRN 10/20/19 10/20/19 ferrous sulfate 325 mg PO DAILY 10/20/19 furosemide 40 mg PO DAILY 10/20/19 10/20/19 ipratropium bromide 2.5 ml INHALATION Q6H 10/20/19 Previous Rx's Medication Instructions Recorded levalbuterol tartrate [Xopenex HFA] 1 puff INHALATION Q4-6H PRN #15 06/23/18 gram docusate sodium [DOK] 100 mg PO BID PRN #30 cap 05/28/19 ondansetron 4 mg SUBLINGUAL Q4HR PRN #20 tab 05/28/19 oxycodone See Rx Instructions .ROUTE 05/28/19 .COMPLEX PRN #40 tab oxycodone-acetaminophen [Percocet] 1 tab PO Q8H PRN #7 tab 06/20/19 azithromycin [Zithromax Z-Rajesh] See Rx Instructions .ROUTE 10/20/19 .COMPLEX #6 tab hydrocodone-acetaminophen [[place]] 1 tab PO Q4-6H PRN #12 tab 10/20/19 ipratropium-albuterol 3 ml INHALATION Q4-6H PRN #90 ml 10/20/19 levalbuterol HCl [Xopenex] 2.5 mg INHALATION Q4H #75 ml 10/20/19 prednisone 60 mg PO DAILY #15 tab 10/20/19 Allergies Allergy/AdvReac Type Severity Reaction Status Date / Time celecoxib [CELECOXIB] Allergy Mild SWELLING Verified 10/20/19 08:19 latex [LATEX] Allergy Mild RASH Verified 10/20/19 08:19 W/EXTENDED EXPOSURE Sulfa (Sulfonamide Allergy Mild RASH Verified 10/20/19 08:19 Antibiotics) [SULFA (SULFONAMIDE ANTIBIOTICS)] varenicline [VARENICLINE] AdvReac Severe Paranoia Verified 10/20/19 08:19 buprenorphine [BUPRENORPHINE] AdvReac Mild NAUSEA, Verified 10/20/19 08:19 DIZZINESS hyoscyamine [HYOSCYAMINE] AdvReac Mild LEG Verified 10/20/19 08:19 JERKING, ANXIETY, NAUSEA W/I MINUTES [id number] Reductase AdvReac Mild WEAK Verified 10/20/19 08:19 Inhibitor MUSCLES [[id number] REDUCTASE INHIBITOR] diazepam [From Valium] AdvReac Confusion Verified 10/20/19 08:19 hydromorphone AdvReac Confusion Verified 10/20/19 08:19 morphine AdvReac Confusion Verified 10/20/19 08:19 Review of Systems Review of Systems Narrative: All review of systems were negative except for those mentioned in the history of present illness. Patient History Medical History Achalasia (Chronic) Anginal pain (Acute) Asthma (Acute) Atrial fibrillation (Chronic) Cervical spinal stenosis (Chronic) Chronic obstructive pulmonary disease (Chronic 10/23/16) COPD (chronic obstructive pulmonary disease) (Chronic) Coronary artery disease (Acute) History of aortic dissection (Acute ~08/2007) Hypertension (Chronic) Ischemic cardiomyopathy (Acute) Neck pain, chronic (Chronic) Ventricular bigeminy (Acute) Surgical History H/O arthroscopic knee surgery (Chronic 11/15/17) History of arthroplasty of right knee (Acute) History of bilateral total hip arthroplasty (Acute) History of cardiac cath (Acute ~03/2014) History of esophageal surgery (Acute) History of incision and drainage (Acute ~2016) History of prior ablation treatment (Acute ~03/2017) History of surgery (Acute) Hx of cholecystectomy (Acute) Hx of hernia repair (Acute) Hx of sinus surgery (Acute) S/P CABG x 3 (Acute ~08/2007) S/P cervical spinal fusion (Acute) S/P lumbar fusion (Acute) Family History Mother Stroke Social History household members: spouse Smoking Status: Former smoker alcohol intake: current substance use type: does not use Smoking Status: Former smoker alcohol intake frequency: a few times a week Substance Use Type: does not use Exam Narrative Exam Narrative: PHYSICAL EXAM: CONSTITUTIONAL: Awake, Alert, Oriented, Coherent, Cooperative in NAD. Does not appear toxic or ill. HEAD: AT/NC EENT: PERRL, FROM of eyes, no discharge, No epistaxis or nasal drainage Oral mucosa is moist and pink, posterior pharynx is without erythema or exudate. NECK: Supple, no obvious JVD, Trachea is midline without stridor, SPINE: No gross deformity, no palpable tenderness of the cervical, thoracic, lumbar or sacral spine. No CVA tenderness. THORAX: No deformity, retractions, chest wall tenderness, LUNGS: Breath sounds are symmetrical with diffuse expiratory wheezes throughout both lung matos posteriorly. HEART: The patient's heart tones reveal a variable S1-S2 with irregular irregular rhythm and no appreciable murmur. ABDOMEN: Soft, non-tender, normal bowel sounds without guarding, rebound, rigidity or palpable mass EXTREMITIES: No edema, cyanosis, deformity or tenderness. SKIN: No rash, bruising, petechiae or purpura. NEURO: Awake, alert, oriented, conversive, cranial nerves II-XII are symmetrical and normal, moves all 4 extremities and is ambulatory Initial Vital Signs Initial Vital Signs: Vital Signs Temperature 98.7 F 10/20/19 08:19 Pulse Rate 78 10/20/19 08:19 Respiratory Rate 20 10/20/19 08:19 Blood Pressure 131/80 10/20/19 08:19 Pulse Oximetry 96 10/20/19 08:19 Course Course Course Narrative: 0958 influenza studies and troponin remain pending. Chest x- ray revealed no acute cardiopulmonary pathology. There is no consolidations and no effusions. The patient appears to be having an upper respiratory infection with an acute flare of his COPD/asthma. 1033: The patient is influenza a and B negative. He will be reassessed for his breathing. 1047 lung medellin the patient feels much better. He states that he has high blood pressure in when he is coughing and shortness of breath goes up. His current blood pressure is 231/ 100. He states that he normally takes Tylenol No. 3 for his pain and discomfort in his back which is chronic. He states that it does not work and he is completely out of it. He states that he is able to take [place]. He will be prescribed [place] 5/325 12 tablets and then advised to follow- up with his primary care physician. He will be placed on prednisone 60 mg per day for 5 days. He will be prescribed DuoNeb breathing treatments every 4-6 hours and Xopenex in between as needed. He will be also placed on a Zithromax Z-Rajesh. He was advised to return to the emergency department if he develops worsening symptoms. Orders Ordered: Discontinued Medications Hydrocodone Bitart/Acetaminophen ([place] 5/325) 1 tab PO NOW ONE Stop: 10/20/19 10:33 Last Admin: 10/20/19 10:48 Dose: 1 tab Documented by: ALENA Albuterol/Ipratropium (Duoneb) 3 ml INH NOW ONE Stop: 10/20/19 08:37 Last Admin: 10/20/19 08:40 Dose: 3 ml Documented by: JOSIAS Hydralazine HCl (Apresoline) 20 mg IV NOW ONE Stop: 10/20/19 10:51 Last Admin: 10/20/19 11:34 Dose: 20 mg Documented by: ALENA Sodium Chloride (Normal Saline 0.9%) 1,000 mls @ 150 mls/hr IV CONT LAUREN Last Infusion: 10/20/19 12:43 Dose: 0 mls/hr Documented by: Admin: 10/20/19 09:43 Dose: 150 mls/hr Documented by: ALENA Magnesium Sulfate (Magnesium Sulfate) 2 gm in 50 mls @ 25 mls/hr IV NOW ONE Stop: 10/20/19 10:38 Last Infusion: 10/20/19 12:40 Dose: 25 mls/hr Documented by: ALENA Cosigned by: KATHY Admin: 10/20/19 09:43 Dose: 25 mls/hr Documented by: ALENA Cosigned by: LUCRECIA Levalbuterol HCl (Xopenex) 1.25 mg INH NOW ONE Stop: 10/20/19 08:40 Last Admin: 10/20/19 08:50 Dose: 1.25 mg Documented by: JOSIAS Levalbuterol HCl (Xopenex) 1.25 mg INH NOW ONE Stop: 10/20/19 10:51 Last Admin: 10/20/19 11:14 Dose: 1.25 mg Documented by: RUTHIE Methylprednisolone (Solu-Medrol 125 Mg Vial) 125 mg IV NOW ONE Stop: 10/20/19 08:40 Last Admin: 10/20/19 09:43 Dose: 125 mg Documented by: ALENA Morphine Sulfate (Morphine) 4 mg IV NOW ONE Stop: 10/20/19 09:46 Last Admin: 10/20/19 09:50 Dose: Not Given Documented by: ALENA Ondansetron HCl (Zofran) 4 mg IV NOW ONE Stop: 10/20/19 10:31 Last Admin: 10/20/19 10:49 Dose: 4 mg Documented by: ALENA Prednisone (Deltasone) 60 mg PO NOW ONE Stop: 10/20/19 08:40 Last Admin: 10/20/19 09:50 Dose: Not Given Documented by: ALENA Vital Signs Vital signs: Vital Signs - 8 hr 10/20/19 08:19 10/20/19 09:01 10/20/19 09:45 Temperature 98.7 F Pulse Rate 78 75 81 Respiratory Rate 20 20 18 Blood Pressure 131/80 Blood Pressure [Left Arm] 214/89 H Pulse Oximetry 96 97 95 10/20/19 10:08 Temperature Pulse Rate 82 Respiratory Rate 26 H Blood Pressure Blood Pressure [Left Arm] Pulse Oximetry MDM - SOB/Dyspnea Lab Data Result diagrams: 10/20/19 09:28 10/20/19 09:28 Labs: Lab Results 10/20/19 10/20/19 10/20/19 Range/Units 09:28 09:28 09:40 WBC 7.7 (4.5-11.0) X10^3/uL RBC 4.64 (4.5-5.9) X10^6/uL Hgb 12.0 L (13.5-17.5) g/dL Hct 37.0 L (41-53) % MCV 79.8 L (80-100) fL MCH 25.9 L (26-34) PG MCHC 32.4 (30-36) % RDW 18.0 H (11.6-14.8) % Plt Count 227 (150-400) X10^3/uL Neut % (Auto) 73.8 (50-75) % Lymph % (Auto) 13.9 L (25-40) % Real % (Auto) 8.2 (3-14) % Eos % (Auto) 3.4 (2-4) % Baso % (Auto) 0.7 (0-2) % Neut # (Auto) 5700 (6656-7631) /uL Lymph # (Auto) 1100 (4115-0328) /uL Real # (Auto) 600 (0-900) /uL Eos # (Auto) 300 (0-450) /uL Baso # (Auto) 100 (0-100) /uL Sodium 139 (137-145) mmol/L Potassium 4.2 (3.4-5.1) mmol/L Chloride 101 (98-107) mmol/L Carbon Dioxide 30 (22-32) mmol/L BUN 13 (9-20) mg/dL Creatinine 0.87 (0.66-1.25) mg/dL Estimated GFR > 60.0 (>60) mL/min BUN/Creatinine Ratio 14.9 (6-22) Glucose 119 H (80-110) mg/dL Calcium 9.3 (8.4-10.2) mg/dL Total Bilirubin 0.7 (0.2-1.3) mg/dL AST 30 (17-59) IU/L ALT 24 (<50) IU/L Alkaline Phosphatase 73 (38-126) U/L Troponin I < 0.012 (0.01-0.034) ng/mL Total Protein 7.7 (6.3-8.2) g/dL Albumin 4.4 (3.5-5.0) g/dL Globulin 3.3 (1.7-4.1) g/dL Albumin/Globulin Ratio 1.3 (1.0-2.8) Influenza A (RT-PCR) Flu a negative (NEGATIVE) Influenza B (RT-PCR) Flu b negative (NEGATIVE) ECG Data Attestation: I personally reviewed and interpreted this ECG as follows: Interpretation: The patient's EKG obtained at 09:1 9:08 a.m. revealed a sinus rhythm with frequent premature ventricular contractions. The ventricular rate was 82. The CA interval is borderline first-degree AV block at 200 milliseconds. QRS duration is normal at 90 milliseconds. QTC is borderline prolonged at 451 milliseconds. Macy is normal. There are no acute diagnostic ST or T-wave changes on the EKG. The patient has nonspecific ST segment changes. Discharge Plan Departure Patient Disposition: Home Clinical Impression: Cough, COPD exacerbation Dyspnea Qualifiers: Dyspnea type: shortness of breath Qualified Code(s): R06.02 - Shortness of breath Asthma attack Qualifiers: Asthma severity: moderate Asthma persistence: unspecified Qualified Code(s): J45.901 - Unspecified asthma with (acute) exacerbation Discharge Date/Time: 10/20/19 12:40 Instructions: DI for Asthma -- Adult, DI for Chronic Obstructive Pulmonary Disease, DI for Cough -- Adult Activity Restrictions/Additional Instructions: 1. Take the [place] 5/325 as needed for pain and discomfort. 2. Take the prednisone 60 mg per day for the next 5 days for your COPD and asthma., take the Zithromax as prescribed. 3. Use the DuoNeb as tolerated every 4-6 hours for acute wheezing cough and shortness of breath. 4. In between using the DuoNeb breathing treatments, use the Xopenex every 2-4 hours as needed for shortness of breath. 5. Follow-up in be recheck by your primary care physician in 48-72 hours. If you develop worsening chest pain, back pain, shortness of breath, racing of your heart, dizziness fainting or passing-out you need to return to the emergency department immediately or go to the nearest emergency department were over you are. Prescriptions: New levalbuterol HCl [Xopenex] 1.25 mg/3 mL solution for nebulization 2.5 mg INHALATION Q4H Qty: 75 RF: 1 ipratropium-albuterol 0.5 mg-3 mg(2.5 mg base)/3 mL solution for nebulization 3 ml INHALATION Q4-6H PRN (Reason: shortness of breath or wheezing) Qty: 90 RF: 1 prednisone 20 mg tablet 60 mg PO DAILY Qty: 15 RF: 0 azithromycin [Zithromax Z-Rajesh] 250 mg tablet See Rx Instructions .ROUTE .COMPLEX Qty: 6 RF: 0 hydrocodone-acetaminophen [[place]] 5-325 mg tablet 1 tab PO Q4-6H PRN (Reason: pain) Qty: 12 RF: 0 No Action multivitamin [Multiple Vitamins] 1 EACH tablet 1 tab PO DAILY Qty: 0 RF: 0 aspirin 325 MG tablet,delayed release (DR/EC) 325 mg PO BEDTIME Qty: 0 RF: 0 fluticasone propionate 16 GM spray,suspension 1 spray Intranasal DAILY Qty: 0 RF: 0 acetaminophen-codeine 300-30 mg tablet 1 - 2 tab PO Q6H MDD 5 PRN (Reason: pain) RF: 0 furosemide 40 mg Tablet 40 mg PO DAILY RF: 0 clonidine HCl 0.1 mg tablet 0.1 - 0.2 mg PO Q8H PRN (Reason: withdrawal symptoms) RF: 0 ferrous sulfate 325 mg (65 mg iron) tablet,delayed release (DR/EC) 325 mg PO DAILY RF: 0 ipratropium bromide 0.02 % solution 2.5 ml inhalation Q6H RF: 0 Qvar RediHaler 40 mcg/actuation HFA aerosol breath activated 2 inh INHALATION BID RF: 0 trazodone 100 mg tablet 300 tab PO BEDTIME RF: 0 levalbuterol tartrate [Xopenex HFA] 45 mcg/actuation HFA aerosol inhaler 1 puff INHALATION Q4-6H PRN (Reason: shortness of breath or wheezing) Qty: 15 RF: 0 metoprolol tartrate 100 mg tablet 100 mg PO BID RF: 0 levalbuterol HCl 1.25 mg/3 mL solution for nebulization 3 ml Inhalation Q6H PRN (Reason: Shortness Of Breath) RF: 0 Zyrtec 10 mg Capsule 10 mg PO DAILY RF: 0 docusate sodium [DOK] 100 mg Capsule 100 mg PO BID PRN (Reason: constipation) Qty: 30 RF: 0 ondansetron 4 mg Tablet,Disintegrating 4 mg sublingual Q4HR PRN (Reason: Nausea) Qty: 20 RF: 0 oxycodone 5 mg Tablet See Rx Instructions .ROUTE .COMPLEX PRN (Reason: Pain, Moderate (4-6)) Qty: 40 RF: 0 oxycodone-acetaminophen [Percocet] 5-325 mg tablet 1 tab PO Q8H PRN (Reason: pain) Qty: 7 RF: 0 Referrals: Binu Ac MD [Primary Care Provider] -
[2019-10-20] MEDS: LEVALBUTEROL 1.25 MG/0.5 ML NEB INH ×2 (08:50→11:14)
--- NOTE | 2019-10-20 08:51 | PC.NURSE ---
pt had a surgical procedure yesterday.
[2019-10-20 09:41] LABS: Add Manual Diff / Slide Review NO; Basophils Absolute Auto 100 /uL (0-100); Basophils Percent Auto 0.7 % (0-2); Eosinophils Absolute Auto 300 /uL (0-450); Eosinophils Percent Auto 3.4 % (2-4); Lymphocytes Absolute Auto 1100 /uL (1100-4500); Lymphocytes Percent Auto 13.9 % (25-40); Mean Corpuscular HGB Conc 32.4 % (30-36); Mean Corpuscular Hemoglobin 25.9 PG (26-34); Mean Corpuscular Volume 79.8 fL (80-100); Monocytes Absolute Auto 600 /uL (0-900); Monocytes Percent Auto 8.2 % (3-14); Neutrophils Absolute Auto 5700 /uL (1500-7000); Neutrophils Percent Auto 73.8 % (50-75); Platelet Count 227 X10^3/uL (150-400); Red Blood Cell Count 4.64 X10^6/uL (4.5-5.9); White Blood Cell Count 7.7 X10^3/uL (4.5-11.0)
[2019-10-20] MEDS: MAGNESIUM SULFATE 2 GM/50 ML PIGGYBACK IV (09:43)
[2019-10-20] MEDS: SODIUM CHLORIDE 0.9% 1,000 ML 150 ML IV (09:43)
[2019-10-20] MEDS: methylPREDNISolone 125 MG/2 ML VIAL IV (09:43)
[2019-10-20 09:53] LABS: Alanine Aminotransferase 24 IU/L (<50); Albumin 4.4 g/dL (3.5-5.0); Albumin Globulin Ratio 1.3 (1.0-2.8); Alkaline Phosphatase 73 U/L (38-126); Aspartate Aminotransferase 30 IU/L (17-59); BUN Creatinine Ratio 14.9 (6-22); Bilirubin Total 0.7 mg/dL (0.2-1.3); Blood Urea Nitrogen 13 mg/dL (9-20); Calcium 9.3 mg/dL (8.4-10.2); Carbon Dioxide 30 mmol/L (22-32); Chloride 101 mmol/L (98-107); Estimated Glomerular Filt Rate > 60.0 mL/min (>60); Globulin 3.3 g/dL (1.7-4.1); Glucose 119 mg/dL (80-110); HEMOLYSIS < 15 (0-50); Potassium 4.2 mmol/L (3.4-5.1); Sodium 139 mmol/L (137-145); Total Protein 7.7 g/dL (6.3-8.2)
[2019-10-20 10:03] LABS: Troponin I < 0.012 ng/mL (0.01-0.034)
[2019-10-20 10:18] LABS: Influenza A - CEPHEID Flu A NEGATIVE (NEGATIVE); Influenza B - CEPHEID Flu B NEGATIVE (NEGATIVE)
[2019-10-20] MEDS: HYDROCODONE/ACET 5/325 TABLET 1 TAB PO (10:48)
[2019-10-20] MEDS: ONDANSETRON 4 MG/2 ML INJ IV (10:49)
[2019-10-20] MEDS: HYDRALAZINE 20 MG/ML VIAL IV (11:34)
== END 2019-10-20 12:40 | disposition home or self-care (01) ==
PROVIDERS: Emergency Provider Emergency Medicine; PCP Internal Medicine
DX: R05 Cough (principal); J44.1 Chronic obstructive pulmonary disease with (acute) exacerbation; J45.901 Unspecified asthma with (acute) exacerbation; R06.02 Shortness of breath
CPT/HCPCS: 36415; 71046; 80053; 84484; 85025; 87502; 93005; 94150; 94640; 96361; 96374; 96375; 99285; J0360; J2405; J2930; J7614

== ENCOUNTER 2019-11-24 10:47 | Emergency (ER) | payer OTHER, SELFPAY ==
[2019-05-25 19:29] VITALS: BMI 30.9
--- NOTE | 2019-11-24 10:51 | ED_ITS ---
HPI - SOB/Dyspnea General Chief Complaint: Upper Respiratory Symptoms Stated Complaint: COUGH Time Seen by Provider: 11/24/19 10:51 Source: patient and old records reviewed Mode of arrival: Ambulatory Limitations: no limitations History of Present Illness HPI Narrative: This is a 74-year-old male who comes in with complaint of cough. Patient states he has been having symptoms for over a month. He was seen October 19 here in the emergency department for similar. Patient states he was placed on steroids which was helpful while he was taking them and then once they were stopped his cough returned. He states he has had fevers intermittently he checks his temperature regularly and can have anything from 99 F to his T-max of a 101? F. patient states he has had flu-like symptoms just feeling tired and run down. He has felt sort of achy all over. He has had a cough that at times has been productive but other times has been dry but he does feel junky or like something stuck in his chest. He denies any chest pain or pressure. He denies any syncope. He denies any lightheadedness. He denies any abdominal pain. No nausea, vomiting no diarrhea or constipation. No urinary symptoms. He has not had any swelling in his lower extremities. For influenza at that time but not for covid. Patient has known COPD, he uses Xopenex and DuoNeb inhalers intermittently which he does find helpful when he uses them. He also has a cardiac history with prior CABG, aortic aneurysm repaired with Dacron, atrial fi brillation and history of ischemic cardiomyopathy . He states he has stopped his metoprolol and Lasix. He is continuing his clonidine and checks his blood pressure regularly and states that has been appropriate. He also has been taking doxycycline for 6 days, this is prescription left over from his dog. Patient states he also has been having some increased back and leg pain because he is coughing so frequently that it is increasing his issue and requesting something. Related Data Home Medications Medication Instructions Recorded Confirmed multivitamin [Multiple Vitamins] 1 tab PO DAILY #0 12/21/16 05/25/19 aspirin 325 mg PO BEDTIME #0 11/03/17 05/25/19 fluticasone propionate 1 spray INTRANASAL DAILY #0 11/03/17 05/25/19 trazodone 300 tab PO BEDTIME 12/10/17 10/20/19 levalbuterol HCl 3 ml INHALATION Q6H PRN 10/17/18 10/20/19 metoprolol tartrate 100 mg PO BID 10/17/18 05/25/19 Zyrtec 10 mg PO DAILY 05/23/19 05/25/19 acetaminophen-codeine 1 - 2 tab PO Q6H PRN MDD 5 10/20/19 10/20/19 beclomethasone dipropionate [Qvar 2 inh INHALATION BID 10/20/19 10/20/19 RediHaler] clonidine HCl 0.1 - 0.2 mg PO Q8H PRN 10/20/19 10/20/19 ferrous sulfate 325 mg PO DAILY 10/20/19 furosemide 40 mg PO DAILY 10/20/19 10/20/19 ipratropium bromide 2.5 ml INHALATION Q6H 10/20/19 Previous Rx's Medication Instructions Recorded levalbuterol tartrate [Xopenex HFA] 1 puff INHALATION Q4-6H PRN #15 06/23/18 gram docusate sodium [DOK] 100 mg PO BID PRN #30 cap 05/28/19 ondansetron 4 mg SUBLINGUAL Q4HR PRN #20 tab 05/28/19 oxycodone See Rx Instructions .ROUTE 05/28/19 .COMPLEX PRN #40 tab oxycodone-acetaminophen [Percocet] 1 tab PO Q8H PRN #7 tab 06/20/19 azithromycin [Zithromax Z-Rajesh] See Rx Instructions .ROUTE 10/20/19 .COMPLEX #6 tab hydrocodone-acetaminophen [Fordoche] 1 tab PO Q4-6H PRN #12 tab 10/20/19 ipratropium-albuterol 3 ml INHALATION Q4-6H PRN #90 ml 10/20/19 levalbuterol HCl [Xopenex] 2.5 mg INHALATION Q4H #75 ml 10/20/19 prednisone 60 mg PO DAILY #15 tab 10/20/19 beclomethasone dipropionate [Qvar 1 inhalation INHALATION Q12H #10.6 11/24/19 RediHaler] gram prednisone See Rx Instructions .ROUTE 11/24/19 .COMPLEX #21 each Allergies Allergy/AdvReac Type Severity Reaction Status Date / Time celecoxib [CELECOXIB] Allergy Mild SWELLING Verified 11/24/19 10:57 latex [LATEX] Allergy Mild RASH Verified 11/24/19 10:57 W/EXTENDED EXPOSURE Sulfa (Sulfonamide Allergy Mild RASH Verified 11/24/19 10:57 Antibiotics) [SULFA (SULFONAMIDE ANTIBIOTICS)] varenicline [VARENICLINE] AdvReac Severe Paranoia Verified 11/24/19 10:57 buprenorphine [BUPRENORPHINE] AdvReac Mild NAUSEA, Verified 11/24/19 10:57 DIZZINESS hyoscyamine [HYOSCYAMINE] AdvReac Mild LEG Verified 11/24/19 10:57 JERKING, ANXIETY, NAUSEA W/I MINUTES Jajoxoi-Eha-Udq Reductase AdvReac Mild WEAK Verified 11/24/19 10:57 Inhibitor MUSCLES [NHFHAMT-FNS-EIU REDUCTASE INHIBITOR] diazepam [From Valium] AdvReac Confusion Verified 11/24/19 10:57 hydromorphone AdvReac Confusion Verified 11/24/19 10:57 morphine AdvReac Confusion Verified 11/24/19 10:57 Review of Systems Review of Systems ROS Unobtainable: All systems reviewed & are unremarkable except as noted in HPI and below Patient History Medical History Achalasia (Chronic) Anginal pain (Acute) Asthma (Acute) Atrial fibrillation (Chronic) Cervical spinal stenosis (Chronic) Chronic obstructive pulmonary disease (Chronic 10/23/16) COPD (chronic obstructive pulmonary disease) (Chronic) Coronary artery disease (Acute) History of aortic dissection (Acute ~08/2007) Hypertension (Chronic) Ischemic cardiomyopathy (Acute) Neck pain, chronic (Chronic) Ventricular bigeminy (Acute) Social History household members: spouse Smoking Status: Former smoker alcohol intake: current substance use type: does not use Smoking Status: Former smoker alcohol intake frequency: a few times a week Substance Use Type: does not use Exam Narrative Exam Narrative: GEN: well nourished, well appearing elderly male, alert and oriented x 3, patient appears to be in mild distress. HEENT: Atraumatic, pupils are equal round reactive to light, extraocular movements are intact, nares are clear, throat is clear without any exudates, erythema, tonsillar enlargement or uvular deviation HEART: Regular rate and rhythm without murmur, clicks, rubs. No edema bilateral lower extremities. LUNGS:Lungs have equal breath bilaterally, no wheezes, rales, crackles, but patient does have some rhonchi bilaterally, chest moves symmetrically, no tachypnea. Patient occasionally has to take a deep breath after long sentence. He does have intermittent cough during examination. ABD:bowel sounds normal, soft, non-tender, no guarding, rebound, rigidity, no masses noted, no hepatosplenomegaly :No CVA tenderness MSCL: Non-tender, full range of motion, normal gait NEURO:CN 2-12 intact, sensation normal SKIN: no rash, no erythema or skin changes noted. Initial Vital Signs Initial Vital Signs: Vital Signs Temperature 98.5 F 11/24/19 10:53 Pulse Rate 93 H 11/24/19 10:53 Respiratory Rate 16 11/24/19 10:53 Blood Pressure 181/90 H 11/24/19 10:53 Pulse Oximetry 96 11/24/19 10:53 Course Orders Ordered: ED Orders 11/24/19 11:00 EKG-12 Lead Stat 11/24/19 11:06 XR chest 1V Stat 11/24/19 11:40 C-Reactive Protein Quant Stat Complete Blood Count AUTO DIFF Stat Comprehensive Metabolic Panel Stat Ferritin Stat NT-proBNP (BNP-Adult 18+) Stat Troponin & CK Cardiac Panel Stat Discontinued Medications Albuterol (Ventolin Hfa) 4 puff INH NOW ONE Stop: 11/24/19 12:57 Last Admin: 11/24/19 13:01 Dose: 4 puff Documented by: AZAM Methylprednisolone (Solu-Medrol 125 Mg Vial) 125 mg IV NOW ONE Stop: 11/24/19 11:06 Last Admin: 11/24/19 12:08 Dose: 125 mg Documented by: AZAM Oxycodone HCl (Percolone) 5 mg PO NOW ONE Stop: 11/24/19 11:06 Last Admin: 11/24/19 12:08 Dose: 5 mg Documented by: AZAM Vital Signs Vital signs: Vital Signs - 8 hr 11/24/19 10:53 11/24/19 12:11 11/24/19 13:44 Temperature 98.5 F Pulse Rate 93 H 95 H 83 Respiratory Rate 16 28 H 24 Blood Pressure 181/90 H Blood Pressure [Left Arm] 150/84 H 181/89 H Pulse Oximetry 96 97 94 MDM - SOB/Dyspnea Lab Data Attestation: I reviewed the patient's lab results. Result diagrams: 11/24/19 11:40 11/24/19 11:40 Labs: Lab Results 11/24/19 11/24/19 Range/Units 11:40 11:40 WBC 9.7 (4.5-11.0) X10^3/uL RBC 4.59 (4.5-5.9) X10^6/uL Hgb 12.2 L (13.5-17.5) g/dL Hct 38.4 L (41-53) % MCV 83.5 (80-100) fL MCH 26.7 (26-34) PG MCHC 31.9 (30-36) % RDW 19.4 H (11.6-14.8) % Plt Count 296 (150-400) X10^3/uL Neut % (Auto) 88.9 H (50-75) % Lymph % (Auto) 6.5 L (25-40) % Fajardo % (Auto) 4.3 (3-14) % Eos % (Auto) 0.1 L (2-4) % Baso % (Auto) 0.2 (0-2) % Neut # (Auto) 8700 H (0769-1599) /uL Lymph # (Auto) 600 L (9630-8758) /uL Fajardo # (Auto) 400 (0-900) /uL Eos # (Auto) 0 (0-450) /uL Baso # (Auto) 0 (0-100) /uL Sodium 138 (137-145) mmol/L Potassium 5.2 H (3.4-5.1) mmol/L Chloride 104 (98-107) mmol/L Carbon Dioxide 26 (22-32) mmol/L BUN 13 (9-20) mg/dL Creatinine 0.77 (0.66-1.25) mg/dL Estimated GFR > 60.0 (>60) mL/min BUN/Creatinine Ratio 16.9 (6-22) Glucose 170 H (80-110) mg/dL Calcium 9.4 (8.4-10.2) mg/dL Ferritin 22 (18-464) ng/mL Total Bilirubin 0.5 (0.2-1.3) mg/dL AST 30 (17-59) IU/L ALT 22 (<50) IU/L Alkaline Phosphatase 73 (38-126) U/L Total Creatine Kinase 124 (55-170) U/L CK-MB (CK-2) 2.77 H (<2.37) ng/mL CK-MB (CK-2) Rel Index 2.2 (1.5-5.0) % Troponin I < 0.012 (0.01-0.034) ng/mL C-Reactive Protein 1.6 H (<1.0) mg/dL NT-Pro-B Natriuret Pep 263 H (<125) pg/mL Total Protein 7.4 (6.3-8.2) g/dL Albumin 4.2 (3.5-5.0) g/dL Globulin 3.2 (1.7-4.1) g/dL Albumin/Globulin Ratio 1.3 (1.0-2.8) Imaging Data Chest x-ray: Radiologist's Impression: [address] [address] XRay Report Signed Patient: Karthikeyan Yo [facility]#: [id number] : 5Acct:[id number] Age/Sex: 74 / MDate of Service: 11/24/19 Loc: ED Accession Number: [id number] Procedure: XR chest 1V Ordering Provider: Saira Mccullough D.O. PROCEDURE: XR CHEST 1V INDICATIONS: flu-like symptoms TECHNIQUE: One view of the chest was acquired. COMPARISON: [facility], , XR CHEST 2V, 10/20/2019, 8:00. FINDINGS: Surgical changes and devices: Sternal wires are noted. Lungs and pleura: Mild appearance of increased vascularity. There are streaky opacities noted in the right base. Mediastinum: Mediastinal contours appear normal. Heart size is mildly prominent. Bones and chest wall: No suspicious bony lesions. Overlying soft tissues appear unremarkable. IMPRESSION: Overall appearance of increased vascularity suggestive of edema. Minimal streaky increased opacities are noted In the left base. This could represent focal edema. However, areas of developing atelectasis and/or pneumonia cannot be excluded. Dictated by: Sanam Dickerson M.D. on 11/24/2019 at 11:24 Approved by: Sanam Dickerson M.D. on 11/24/2019 at 11:25 ECG Data Attestation: I personally reviewed and interpreted this ECG as follows: Prior ECG tracings: available for review Interpretation: Sinus rhythm with occasional PVC. Nonspecific T-wave abnormality. Patient has Q-waves in lead 3 which are present on prior EKG. Rate 87, P are 202 QRS of 93 QTC of 420. MDM Narrative Medical decision making narrative: Patient comes in with a cough that is been going on for more than a month. He has stopped some of his own medications and just prior to discharge also we discussed that he had stopped some sort of steroid inhaler because he had run out and has not had it refilled or been in contact with his physician in any way he has stopped his metoprolol as well as his Lasix. His lab work does not show an elevated white count, he does have anemia which appears baseline from his most recent visit. Platelets are normal he has a left shift with low lymphocytes. Patient's electrolytes show a potassium just elevated at 5.2 with normal electrolytes and renal function. Glucose is 170 with normal LFTs. Patient has normal troponin. BNP is very mildly elevated to 63 with a C-reactive protein of 1.6. Patient is covered testing is pending. Chest x-ray does not show an obvious pneumonia but he does have signs of pulmonary edema. Plan to give patient another course of steroids as he does have known lung disease and found this extremely beneficial on his last day. He still has DuoNeb as well as Levoalbuterol at home. Patient and I discussed steroid inhaler which he states that he had stopped he does not recall the name it appears it may have been QVAR from prior visit list but asked patient to consult with his old medication list at home and PCP who is answering the phones. Also asked him to restart his Lasix for the short course and discussed with his primary care Um that he has stopped his metoprolol. Discharge Plan Departure Patient Disposition: Home Clinical Impression: Cough Discharge Date/Time: 11/24/19 14:05 Instructions: Cough Activity Restrictions/Additional Instructions: Follow up with your physician, call to reveiw your medications since you have stopped your metoprolol and Lasix. Continue using your nebulized medications at home every 4 hours as needed. Double check your home inhalers to make sure it's the correct medication, but use Qvar 1 puff twice daily regardless of symptoms. Take steroids once daily until gone. I would recommend restarting your Lasix as your labs and imaging show some mild pulmonary edema and fluid overload. Your labs also show your potassium level is very mildly elevated and this is likely related to stopping your lasix. Prescription was sent to [facility] in [place]. *You have been diagnosed with possible covid/coronavirus infection. This lab test is pending and should take 2-3 days to results. You should receive a call from the emergency department in with your results. *What to do: * per recommendations from the CDC and the [facility] Department of Health * stay home except to get medical care. Restrict activities outside your h ome, except for getting medical care. Do not go to work, school, or public areas. Avoid using public transportation, ride sharing, or taxis. * separate yourself from other people in your home. * call ahead before visiting your doctor * Wear a face mask * Cover your coughs and sneezes * Clean your hands often * Avoid sharing household items * Clean all high-touch services every day * Monitor your symptoms and seek prompt medical attention if your illness is worsening, particularly with difficulty in breathing. Discussed continuing home isolation * for individuals with symptoms who are confirmed or suspected cases of COVID-19 and are directed to care for themselves at home, discontinue home isolation under the following conditions: 1. At least 72 hours have passed since recovery, defined as resolution of fever without the use of fever reducing medications, and improvement in respiratory symptoms (cough, shortness of breath) AND, 2. At least 7 days have passed since symptoms 1st appeared Individuals with laboratory confirmed COVID-19 who have not had any symptoms may discontinue home isolation when at least 7 days have passed since the date of their 1st COVID-19 diagnostic test and have had no subsequent illness Prescriptions: New prednisone 10 mg tablets,dose pack See Rx Instructions .ROUTE .COMPLEX Qty: 21 RF: 0 Qvar RediHaler 80 mcg/actuation HFA aerosol breath activated 1 inhalation INHALATION Q12H Qty: 10.6 RF: 0 No Action multivitamin [Multiple Vitamins] 1 EACH tablet 1 tab PO DAILY Qty: 0 RF: 0 aspirin 325 MG tablet,delayed release (DR/EC) 325 mg PO BEDTIME Qty: 0 RF: 0 fluticasone propionate 16 GM spray,suspension 1 spray Intranasal DAILY Qty: 0 RF: 0 acetaminophen-codeine 300-30 mg tablet 1 - 2 tab PO Q6H MDD 5 PRN (Reason: pain) RF: 0 furosemide 40 mg Tablet 40 mg PO DAILY RF: 0 clonidine HCl 0.1 mg tablet 0.1 - 0.2 mg PO Q8H PRN (Reason: withdrawal symptoms) RF: 0 ferrous sulfate 325 mg (65 mg iron) tablet,delayed release (DR/EC) 325 mg PO DAILY RF: 0 ipratropium bromide 0.02 % solution 2.5 ml inhalation Q6H RF: 0 Qvar RediHaler 40 mcg/actuation HFA aerosol breath activated 2 inh INHALATION BID RF: 0 levalbuterol HCl [Xopenex] 1.25 mg/3 mL solution for nebulization 2.5 mg INHALATION Q4H Qty: 75 RF: 1 ipratropium-albuterol 0.5 mg-3 mg(2.5 mg base)/3 mL solution for nebulization 3 ml INHALATION Q4-6H PRN (Reason: shortness of breath or wheezing) Qty: 90 RF: 1 prednisone 20 mg tablet 60 mg PO DAILY Qty: 15 RF: 0 azithromycin [Zithromax Z-Rajesh] 250 mg tablet See Rx Instructions .ROUTE .COMPLEX Qty: 6 RF: 0 hydrocodone-acetaminophen [Fordoche] 5-325 mg tablet 1 tab PO Q4-6H PRN (Reason: pain) Qty: 12 RF: 0 trazodone 100 mg tablet 300 tab PO BEDTIME RF: 0 levalbuterol tartrate [Xopenex HFA] 45 mcg/actuation HFA aerosol inhaler 1 puff INHALATION Q4-6H PRN (Reason: shortness of breath or wheezing) Qty: 15 RF: 0 metoprolol tartrate 100 mg tablet 100 mg PO BID RF: 0 levalbuterol HCl 1.25 mg/3 mL solution for nebulization 3 ml Inhalation Q6H PRN (Reason: Shortness Of Breath) RF: 0 Zyrtec 10 mg Capsule 10 mg PO DAILY RF: 0 docusate sodium [DOK] 100 mg Capsule 100 mg PO BID PRN (Reason: constipation) Qty: 30 RF: 0 ondansetron 4 mg Tablet,Disintegrating 4 mg sublingual Q4HR PRN (Reason: Nausea) Qty: 20 RF: 0 oxycodone 5 mg Tablet See Rx Instructions .ROUTE .COMPLEX PRN (Reason: Pain, Moderate (4-6)) Qty: 40 RF: 0 oxycodone-acetaminophen [Percocet] 5-325 mg tablet 1 tab PO Q8H PRN (Reason: pain) Qty: 7 RF: 0 Referrals: Binu Ac MD [Primary Care Provider] -
[2019-11-24 10:53] VITALS: BP 181/90; PULSE 93; RESP 16; TEMP 36.9; O2SAT 96
--- NOTE | 2019-11-24 11:06 | DI.RAD.S_ITS ---
PROCEDURE: XR CHEST 1V INDICATIONS: flu-like symptoms TECHNIQUE: One view of the chest was acquired. COMPARISON: [facility], CR, XR CHEST 2V, 10/20/2019, 8:00. FINDINGS: Surgical changes and devices: Sternal wires are noted. Lungs and pleura: Mild appearance of increased vascularity. There are streaky opacities noted in the right base. Mediastinum: Mediastinal contours appear normal. Heart size is mildly prominent. Bones and chest wall: No suspicious bony lesions. Overlying soft tissues appear unremarkable. IMPRESSION: Overall appearance of increased vascularity suggestive of edema. Minimal streaky increased opacities are noted In the left base. This could represent focal edema. However, areas of developing atelectasis and/or pneumonia cannot be excluded. Dictated by: Sanam Dickerson M.D. on 11/24/2019 at 11:24 Approved by: Sanam Dickerson M.D. on 11/24/2019 at 11:25
[2019-11-24] MEDS: methylPREDNISolone 125 MG/2 ML VIAL IV (12:08)
[2019-11-24] MEDS: OXYCODONE IR 5 MG TABLET PO (12:08)
[2019-11-24 12:11] VITALS: BP 150/84; PULSE 95; RESP 28; O2SAT 97
[2019-11-24 12:21] LABS: Add Manual Diff / Slide Review NO; Basophils Absolute Auto 0 /uL (0-100); Basophils Percent Auto 0.2 % (0-2); Eosinophils Absolute Auto 0 /uL (0-450); Eosinophils Percent Auto 0.1 % (2-4); Hematocrit 38.4 % (41-53); Hemoglobin 12.2 g/dL (13.5-17.5); Lymphocytes Absolute Auto 600 /uL (1100-4500); Lymphocytes Percent Auto 6.5 % (25-40); Mean Corpuscular HGB Conc 31.9 % (30-36); Mean Corpuscular Hemoglobin 26.7 PG (26-34); Mean Corpuscular Volume 83.5 fL (80-100); Monocytes Absolute Auto 400 /uL (0-900); Monocytes Percent Auto 4.3 % (3-14); Neutrophils Absolute Auto 8700 /uL (1500-7000); Neutrophils Percent Auto 88.9 % (50-75); Platelet Count 296 X10^3/uL (150-400); Red Blood Cell Count 4.59 X10^6/uL (4.5-5.9); Red Cell Distribution Width 19.4 % (11.6-14.8); White Blood Cell Count 9.7 X10^3/uL (4.5-11.0)
[2019-11-24 12:31] LABS: Alanine Aminotransferase 22 IU/L (<50); Albumin 4.2 g/dL (3.5-5.0); Albumin Globulin Ratio 1.3 (1.0-2.8); Alkaline Phosphatase 73 U/L (38-126); Aspartate Aminotransferase 30 IU/L (17-59); BUN Creatinine Ratio 16.9 (6-22); Bilirubin Total 0.5 mg/dL (0.2-1.3); Blood Urea Nitrogen 13 mg/dL (9-20); C-Reactive Protein Quant 1.6 mg/dL (<1.0); Calcium 9.4 mg/dL (8.4-10.2); Carbon Dioxide 26 mmol/L (22-32); Chloride 104 mmol/L (98-107); Creatine Kinase 124 U/L (55-170); Estimated Glomerular Filt Rate > 60.0 mL/min (>60); Globulin 3.2 g/dL (1.7-4.1); Glucose 170 mg/dL (80-110); HEMOLYSIS 18 (0-50); Potassium 5.2 mmol/L (3.4-5.1); Sodium 138 mmol/L (137-145); Total Protein 7.4 g/dL (6.3-8.2)
[2019-11-24 12:41] LABS: NT-proBNP (BNP-Adult 18+) 263 pg/mL (<125); Troponin I < 0.012 ng/mL (0.01-0.034)
[2019-11-24 12:44] LABS: CKMB % Relative Index 2.2 % (1.5-5.0); Creatine Kinase MB 2.77 ng/mL (<2.37)
[2019-11-24] MEDS: ALBUTEROL HFA 60 PUFF/8 GM INH INH (13:01)
[2019-11-24 13:04] LABS: Ferritin 22 ng/mL (18-464)
[2019-11-24 13:44] VITALS: BP 181/89; PULSE 83; RESP 24; O2SAT 94
--- NOTE | 2019-11-24 13:44 | PC.NURSE ---
Spacer training given by this RN, discussed with RT, pt has used spacer before. Pt just needed reinforcement of proper technique
[2019-11-24 21:24] LABS: COVID19 Sendout Not Detected (Not Detect)
== END 2019-11-24 14:05 | disposition home or self-care (01) ==
PROVIDERS: Emergency Provider Emergency Medicine; PCP Internal Medicine
DX: R05 Cough (principal); D64.9 Anemia, unspecified; R68.89 Other general symptoms and signs
CPT/HCPCS: 36415; 71045; 80053; 82550; 82553; 82728; 83880; 84484; 85025; 86140; 87635; 93005; 99284; J2930

== ENCOUNTER 2020-02-12 11:29 | Emergency (ER) | payer OTHER, SELFPAY ==
[2019-05-25 19:29] VITALS: BMI 30.9
[2020-02-12 11:33] VITALS: BP 145/82; PULSE 78; RESP 18; O2SAT 95
--- NOTE | 2020-02-12 11:43 | DI.CT.S_ITS ---
PROCEDURE: CT CERVICAL SPINE WO CON INDICATIONS: fall w/ head and neck pain/ previous surgery on c spine. TECHNIQUE: Noncontrast 3 mm thick sections acquired from the skull base to the T4 level. Sagittal and coronal reformats were then constructed. For radiation dose reduction, the following was used: automated exposure control, adjustment of mA and/or kV according to patient size. COMPARISON: CR, XR CERVICAL SPINE 2 OR 3VW, 07/26/2016, 9:55. [facility], MR, C-SPINE WITHOUT CONTRAST, 05/26/2016, 7:42. FINDINGS: Image quality: Excellent. Bones: No fractures or dislocations. There is loss of cervical lordosis with a kyphotic curvature. There is grade 1 anterolisthesis of C2 on C3, C3 on C4 and C7 on T1. C4-C7 is surgically fused. Mild degenerative disc disease at C2-C3 and C3-C4. Bilateral facet arthropathy, most pronounced at C2-C3 on the left. Visualized superior ribs are intact. Soft tissues: Prevertebral soft tissues are normal in thickness. No paravertebral hematomas. No apical pneumothoraces. IMPRESSION: 1. No fracture or dislocation. 2. Postsurgical and degenerative changes in cervical spine. Dictated by: Fady De Santiago M.D. on 02/12/2020 at 12:18 Approved by: Fady De Santiago M.D. on 02/12/2020 at 12:38
--- NOTE | 2020-02-12 11:43 | DI.CT.S_ITS ---
PROCEDURE: CT HEAD/BRAIN WO CON INDICATIONS: fall w/ head and neck pain/ previous surgery on c spine. TECHNIQUE: Noncontrast 4.5 mm thick angled axial sections acquired from the foramen magnum to the vertex, with coronal and sagittal reformats. For radiation dose reduction, the following was used: automated exposure control, adjustment of mA and/or kV according to patient size. COMPARISON: None. FINDINGS: Image quality: Excellent. CSF spaces: Basal cisterns are patent. No extra-axial fluid collections. The ventricles are symmetric in size and shape. Brain: No intracranial bleeds or masses. There is cerebral volume loss for age, with resultant ventricular and sulcal prominence. There are periventricular and deep white matter chronic small vessel ischemic changes. Old lacunar infarcts in the basal ganglia bilaterally. There is intracranial internal carotid artery atherosclerosis. Skull and face: Calvarium and visualized facial bones appear intact, without suspicious lesions. Sinuses: Visualized sinuses and mastoids are clear. IMPRESSION: 1. No acute intracranial abnormalities. 2. Cerebral volume loss and chronic microvascular ischemic changes. 3. Old lacunar infarcts in basal ganglia. Dictated by: Fady De Santiago M.D. on 02/12/2020 at 12:10 Approved by: Fady De Santiago M.D. on 02/12/2020 at 12:17
--- NOTE | 2020-02-12 11:46 | PC.NURSE ---
Pt states the gurney is too uncomfortable and wishes to remain in the wheelchair. Pt has C Collar in place, in visible room with call light in reach
[2020-02-12] MEDS: ONDANSETRON 4 MG ODT PO (11:55)
[2020-02-12] MEDS: CYCLOBENZAPRINE 10 MG TABLET PO (12:53)
[2020-02-12] MEDS: HYDROCODONE/ACET 5/325 TABLET 1 TAB PO (12:53)
[2020-02-12] MEDS: LIDOCAINE PATCH 1 EACH ADH..PATCH TOP (12:54)
--- NOTE | 2020-02-12 16:00 | ED_ITS ---
HPI - Neck Pain/Injury <Saira Freedman, HAND TILE MAKER-BC - Last Filed: 02/12/20 18:08> General Chief Complaint: Neck Pain/Injury Stated Complaint: FELL,HEADACHE/NECKPAIN Time Seen by Provider: 02/12/20 11:59 Source: patient Mode of arrival: Wheelchair Limitations: physical limitation History of Present Illness HPI Narrative: The patient is a 74-year-old male former smoker with history of C2, C3 fusion. He states that he fell down approximately 13 steps, which were cushion and. This occurred approximately 9-10 days ago. He states that he tripped on his dog when he wanted between his feet. No loss of consciousness. He states he gradually had worsening neck pain and head pain in. he does not take any blood thinners. He does complain of some numbness of his left 1st digit, though states that he has had this on and off for the past several years. He states that it got bad again after his fall. He denies any other numbness or tingling, any incontinence of bowel or bladder. He states that his pain is terrible. It radiates up both sides of his neck. The patient states that he saw his primary care provider, Dr. Ac few days after his injury. He states he was referred to orthopedics for an injection in his shoulder, does not want a shoulder x-ray today. Given that the patient had a fall down several stairs, his age he was activated as a modified trauma on arrival to the emergency department. Related Data Home Medications Medication Instructions Recorded Confirmed multivitamin [Multiple Vitamins] 1 tab PO DAILY #0 12/21/16 05/25/19 aspirin 325 mg PO BEDTIME #0 11/03/17 05/25/19 fluticasone propionate 1 spray INTRANASAL DAILY #0 11/03/17 05/25/19 trazodone 300 tab PO BEDTIME 12/10/17 10/20/19 levalbuterol HCl 3 ml INHALATION Q6H PRN 10/17/18 10/20/19 metoprolol tartrate 100 mg PO BID 10/17/18 05/25/19 Zyrtec 10 mg PO DAILY 05/23/19 05/25/19 acetaminophen-codeine 1 - 2 tab PO Q6H PRN MDD 5 10/20/19 10/20/19 beclomethasone dipropionate [Qvar 2 inh INHALATION BID 10/20/19 10/20/19 RediHaler] clonidine HCl 0.1 - 0.2 mg PO Q8H PRN 10/20/19 10/20/19 ferrous sulfate 325 mg PO DAILY 10/20/19 furosemide 40 mg PO DAILY 10/20/19 10/20/19 ipratropium bromide 2.5 ml INHALATION Q6H 10/20/19 Previous Rx's Medication Instructions Recorded levalbuterol tartrate [Xopenex HFA] 1 puff INHALATION Q4-6H PRN #15 06/23/18 gram docusate sodium [DOK] 100 mg PO BID PRN #30 cap 05/28/19 ondansetron 4 mg SUBLINGUAL Q4HR PRN #20 tab 05/28/19 oxycodone See Rx Instructions .ROUTE 05/28/19 .COMPLEX PRN #40 tab oxycodone-acetaminophen [Percocet] 1 tab PO Q8H PRN #7 tab 06/20/19 azithromycin [Zithromax Z-Rajesh] See Rx Instructions .ROUTE 10/20/19 .COMPLEX #6 tab hydrocodone-acetaminophen [[place]] 1 tab PO Q4-6H PRN #12 tab 10/20/19 ipratropium-albuterol 3 ml INHALATION Q4-6H PRN #90 ml 10/20/19 levalbuterol HCl [Xopenex] 2.5 mg INHALATION Q4H #75 ml 10/20/19 prednisone 60 mg PO DAILY #15 tab 10/20/19 beclomethasone dipropionate [Qvar 1 inhalation INHALATION Q12H #10.6 11/24/19 RediHaler] gram prednisone See Rx Instructions .ROUTE 11/24/19 .COMPLEX #21 each cyclobenzaprine 10 mg PO TID PRN #14 tab 02/12/20 hydrocodone-acetaminophen [[place]] 1 tab PO Q4-6H PRN #7 tab 02/12/20 Allergies Allergy/AdvReac Type Severity Reaction Status Date / Time celecoxib [CELECOXIB] Allergy Mild SWELLING Verified 02/12/20 11:50 latex [LATEX] Allergy Mild RASH Verified 02/12/20 11:50 W/EXTENDED EXPOSURE Sulfa (Sulfonamide Allergy Mild RASH Verified 02/12/20 11:50 Antibiotics) [SULFA (SULFONAMIDE ANTIBIOTICS)] varenicline [VARENICLINE] AdvReac Severe Paranoia Verified 02/12/20 11:50 buprenorphine [BUPRENORPHINE] AdvReac Mild NAUSEA, Verified 02/12/20 11:50 DIZZINESS hyoscyamine [HYOSCYAMINE] AdvReac Mild LEG Verified 02/12/20 11:50 JERKING, ANXIETY, NAUSEA W/I MINUTES Inlztnl-Mgq-Gwi Reductase AdvReac Mild WEAK Verified 02/12/20 11:50 Inhibitor MUSCLES [[id number] REDUCTASE INHIBITOR] diazepam [From Valium] AdvReac Confusion Verified 02/12/20 11:50 hydromorphone AdvReac Confusion Verified 02/12/20 11:50 morphine AdvReac Confusion Verified 02/12/20 11:50 Review of Systems <ROSEMARIE Wilson - Last Filed: 02/12/20 18:08> Review of Systems Narrative: GENERAL: Denies chills, fatigue, malaise, fever, sweats. HEENT: Denies sinus pain, ear pain, sore throat, difficulty swallowing, dizziness. RESPIRATORY: Denies dyspnea, cough, wheezing, hemoptysis, sputum. CARDIOVASCULAR: Denies chest pain, palpitations, orthopnea, edema, GASTROINTESTINAL: Denies nausea, vomiting, abdominal pain, diarrhea, constipation, melena. : Denies dysuria, frequency, incontinence, hematuria, urinary retention. MUSCULOSKELETAL: See HPI SKIN: Denies rash, skin lesions, or other NEUROLOGIC: See HPI PSYCHIATRIC: No concerning psychosocial issues. 12 point review of systems is negative except for those stated above Patient History <ROSEMARIE Wilson - Last Filed: 02/12/20 18:08> Medical History (Updated 02/12/20 @ 13:30 by ROSEMARIE Wilson) Achalasia (Chronic) Anginal pain (Acute) Asthma (Acute) Atrial fibrillation (Chronic) Cervical spinal stenosis (Chronic) Chronic obstructive pulmonary disease (Chronic 10/23/16) COPD (chronic obstructive pulmonary disease) (Chronic) Coronary artery disease (Acute) History of aortic dissection (Acute ~08/2007) Hypertension (Chronic) Ischemic cardiomyopathy (Acute) Neck pain, chronic (Chronic) Ventricular bigeminy (Acute) Surgical History H/O arthroscopic knee surgery (Chronic 11/15/17) History of arthroplasty of right knee (Acute) History of bilateral total hip arthroplasty (Acute) History of cardiac cath (Acute ~03/2014) History of esophageal surgery (Acute) History of incision and drainage (Acute ~2016) History of prior ablation treatment (Acute ~03/2017) History of surgery (Acute) Hx of cholecystectomy (Acute) Hx of hernia repair (Acute) Hx of sinus surgery (Acute) S/P CABG x 3 (Acute ~08/2007) S/P cervical spinal fusion (Acute) S/P lumbar fusion (Acute) Family History Mother Stroke Social History household members: spouse Smoking Status: Former smoker alcohol intake: current substance use type: does not use Smoking Status: Former smoker alcohol intake frequency: a few times a week Substance Use Type: does not use Exam <Saira Freedman, HAND TILE MAKER-BC - Last Filed: 02/12/20 18:08> Narrative Exam Narrative: GENERAL: Elderly male sitting in wheelchair, no acute distress HEAD: Atraumatic. Normocephalic. No temporal or scalp tenderness. EYES: Pupils equal round and reactive. Extraocular motions intact. No scleral icterus. No injection or drainage. ENT: Nose without bleeding, purulent drainage or septal hematoma. Throat without erythema, tonsillar hypertrophy or exudate. Uvula midline. Airway patent. NECK: Trachea midline. No JVD or lymphadenopathy. Supple, nontender, no meningeal signs. CARDIOVASCULAR: Regular rate and rhythm RESPIRATORY: Coarse bilaterally to auscultation. Breath sounds equal bilaterally. No wheezes, rales, or rhonchi. No cough. No increased respiratory effort. No accessory muscle use. Speaking full sentences. GASTROINTESTINAL: Abdomen soft, non-tender, nondistended. No hepato- splenomegaly, or palpable masses. No guarding. EXTREMITIES: Diffuse pain to palpation noted right shoulder. Full range of motion noted right shoulder. Patient declines x-ray. BACK: Nontender without deformity or crepitance. No flank tenderness. Diffuse pain to C-spine palpation, midline, no pain to T or L-spine palpation NEURO: AOx3. Strength is equal upper lower extremities bilaterally. Clear speech. Following commands SKIN: No rash or erythema on visible skin Initial Vital Signs Initial Vital Signs: Vital Signs Pulse Rate 78 02/12/20 11:33 Respiratory Rate 18 02/12/20 11:33 Blood Pressure 145/82 H 02/12/20 11:33 Pulse Oximetry 95 02/12/20 11:33 <Christopher Cisse MD - Last Filed: 02/12/20 20:42> Initial Vital Signs Initial Vital Signs: Vital Signs Pulse Rate 78 02/12/20 11:33 Respiratory Rate 18 02/12/20 11:33 Blood Pressure 145/82 H 02/12/20 11:33 Pulse Oximetry 95 02/12/20 11:33 Course <NITIN Wilson-PARVIZ - Last Filed: 02/12/20 18:08> Orders Ordered: ED Orders 02/12/20 11:43 CT cervical spine wo con Stat CT head/brain wo con Stat Discontinued Medications Hydrocodone Bitart/Acetaminophen ([place] 5/325) 1 tab PO NOW ONE Stop: 02/12/20 12:43 Last Admin: 02/12/20 12:53 Dose: 1 tab Documented by: LUCRECIA Cyclobenzaprine HCl (Flexeril) 10 mg PO NOW ONE Stop: 02/12/20 12:43 Last Admin: 02/12/20 12:53 Dose: 10 mg Documented by: LUCRECIA Lidocaine (Lidoderm) 1 each TOP NOW ONE Stop: 02/12/20 12:43 Last Admin: 02/12/20 12:54 Dose: 1 each Documented by: LUCRECIA Ondansetron HCl (Zofran Odt) 4 mg PO NOW ONE Stop: 02/12/20 11:52 Last Admin: 02/12/20 11:55 Dose: 4 mg Documented by: LUCRECIA Vital Signs Vital signs: Vital Signs - 8 hr 02/12/20 11:33 Pulse Rate 78 Respiratory Rate 18 Blood Pressure 145/82 H Pulse Oximetry 95 <Christopher Cisse MD - Last Filed: 02/12/20 20:42> Orders Ordered: ED Orders 02/12/20 11:43 CT cervical spine wo con Stat CT head/brain wo con Stat Discontinued Medications Hydrocodone Bitart/Acetaminophen ([place] 5/325) 1 tab PO NOW ONE Stop: 02/12/20 12:43 Last Admin: 07/06/20 12:53 Dose: 1 tab Documented by: LUCRECIA Cyclobenzaprine HCl (Flexeril) 10 mg PO NOW ONE Stop: 02/12/20 12:43 Last Admin: 02/12/20 12:53 Dose: 10 mg Documented by: LUCRECIA Lidocaine (Lidoderm) 1 each TOP NOW ONE Stop: 02/12/20 12:43 Last Admin: 02/12/20 12:54 Dose: 1 each Documented by: LUCRECIA Ondansetron HCl (Zofran Odt) 4 mg PO NOW ONE Stop: 02/12/20 11:52 Last Admin: 02/12/20 11:55 Dose: 4 mg Documented by: LUCRECIA Vital Signs Vital signs: Vital Signs - 8 hr 02/12/20 11:33 Pulse Rate 78 Respiratory Rate 18 Blood Pressure 145/82 H Pulse Oximetry 95 MDM - Neck Pain/Injury <ROSEMARIE Wilson - Last Filed: 02/12/20 18:08> Imaging Data CT scan - head: Radiologist's Impression: [address] [place] [address] CT Scan Report Signed Patient: Karthikeyan Yo [facility]#: [id number] : 5Acct:[id number] Age/Sex: 74 / MDate of Service: 02/12/20 Loc: ED Accession Number: [id number] Procedure: CT head/brain wo con Ordering Provider: Christopher Cisse MD PROCEDURE: CT HEAD/BRAIN WO CON INDICATIONS: fall w/ head and neck pain/ previous surgery on c spine. TECHNIQUE: Noncontrast 4.5 mm thick angled axial sections acquired from the foramen magnum to the vertex, with coronal and sagittal reformats. For radiation dose reduction, the following was used: automated exposure control, adjustment of mA and/or kV according to patient size. COMPARISON: None. FINDINGS: Image quality: Excellent. CSF spaces: Basal cisterns are patent. No extra-axial fluid collections. The ventricles are symmetric in size and shape. Brain: No intracranial bleeds or masses. There is cerebral volume loss for age, with resultant ventricular and sulcal prominence. There are periventricular and deep white matter chronic small vessel ischemic changes. Old lacunar infarcts in the basal ganglia bilaterally. There is intracranial internal carotid artery atherosclerosis. Skull and face: Calvarium and visualized facial bones appear intact, without suspicious lesions. Sinuses: Visualized sinuses and mastoids are clear. IMPRESSION: 1. No acute intracranial abnormalities. 2. Cerebral volume loss and chronic microvascular ischemic changes. 3. Old lacunar infarcts in basal ganglia. Dictated by: Fady De Santiago M.D. on 02/12/2020 at 12:10 Approved by: Fady De Santiago M.D. on 02/12/2020 at 12:17 CT - cervical spine: Radiologist's Impression: [facility] [address] [place] [address] CT Scan Report Signed Patient: Karthikeyan Yo [facility]#: [id number] : 5Acct:[id number] Age/Sex: 74 / MDate of Service: 02/12/20 Loc: ED Accession Number: [id number] Procedure: CT cervical spine wo con Ordering Provider: Christopher Cisse MD PROCEDURE: CT CERVICAL SPINE WO CON INDICATIONS: fall w/ head and neck pain/ previous surgery on c spine. TECHNIQUE: Noncontrast 3 mm thick sections acquired from the skull base to the T4 level. Sagittal and coronal reformats were then constructed. For radiation dose reduction, the following was used: automated exposure control, adjustment of mA and/or kV according to patient size. COMPARISON: CR, XR CERVICAL SPINE 2 OR 3VW, 07/26/2016, 9:55. [facility], MR, C-SPINE WITHOUT CONTRAST, 05/26/2016, 7:42. FINDINGS: Image quality: Excellent. Bones: No fractures or dislocations. There is loss of cervical lordosis with a kyphotic curvature. There is grade 1 anterolisthesis of C2 on C3, C3 on C4 and C7 on T1. C4-C7 is surgically fused. Mild degenerative disc disease at C2-C3 and C3-C4. Bilateral facet arthropathy, most pronounced at C2-C3 on the left. Visualized superior ribs are intact. Soft tissues: Prevertebral soft tissues are normal in thickness. No paravertebral hematomas. No apical pneumothoraces. IMPRESSION: 1. No fracture or dislocation. 2. Postsurgical and degenerative changes in cervical spine. Dictated by: Fady De Santiago M.D. on 02/12/2020 at 12:18 Approved by: Fady De Santiago M.D. on 02/12/2020 at 12:38 MDM Narrative Medical decision making narrative: The patient is a 74-year-old male who presents with a chief complaint of a fall down multiple steps approximately 9 days ago. Given his mechanism of injury as well as his age, he was activated as a modified trauma. He has a normal head CT as well as a normal neck CT. He feels much improved after the above-stated therapies. Of note the patient did remove his C-collar prior to CT results, and refused to allow staff to put it back on. He then requested to leave a soon uses given oral pain medications. I discussed at length the importance of following up with primary care provider, which he states urine has scheduled. He does note that he did follow-up with PCP after the injury. I discussed at length coming back to the emergency department for any acute concerns, that pain medicine can be constipating sedating etcetera. Patient has no questions or concerns upon discharge and states understanding of return precautions as well as follow-up care. Discharge Plan Departure Patient Disposition: Home Clinical Impression: Acute neck pain Fall down stairs Qualifiers: Encounter type: initial encounter Qualified Code(s): W10.8XXA - Fall (on) (from) other stairs and steps, initial encounter Headache Qualifiers: Headache type: unspecified Headache chronicity pattern: unspecified pattern Intractability: not intractable Qualified Code(s): R51 - Headache Discharge Date/Time: 02/12/20 13:41 Instructions: How to Prevent Falls, DI for Headache, DI for Neck Pain Activity Restrictions/Additional Instructions: Thank you for trusting us with your care today As discussed, your CT scan back with no acute findings Please follow-up with primary care provider in the next few days. I sent 2 prescriptions to [facility]. I have given you a prescription of a narcotic for pain. Be aware that this can be constipating and sedating. I encouraged taking with a stool softener, pushing fluids and fiber. Do not take and drive, operate heavy machinery, etc. Do not combine it with any other sedating substances such as alcohol. The combination of narcotics and alcohol and/or other sedatives can be lethal. Prescriptions: New hydrocodone-acetaminophen [[place]] 5-325 mg tablet 1 tab PO Q4-6H PRN (Reason: pain) Qty: 7 RF: 0 cyclobenzaprine 10 mg tablet 10 mg PO TID PRN (Reason: muscle spasm) Qty: 14 RF: 0 No Action multivitamin [Multiple Vitamins] 1 EACH tablet 1 tab PO DAILY Qty: 0 RF: 0 aspirin 325 MG tablet,delayed release (DR/EC) 325 mg PO BEDTIME Qty: 0 RF: 0 fluticasone propionate 16 GM spray,suspension 1 spray Intranasal DAILY Qty: 0 RF: 0 acetaminophen-codeine 300-30 mg tablet 1 - 2 tab PO Q6H MDD 5 PRN (Reason: pain) RF: 0 furosemide 40 mg Tablet 40 mg PO DAILY RF: 0 clonidine HCl 0.1 mg tablet 0.1 - 0.2 mg PO Q8H PRN (Reason: withdrawal symptoms) RF: 0 ferrous sulfate 325 mg (65 mg iron) tablet,delayed release (DR/EC) 325 mg PO DAILY RF: 0 ipratropium bromide 0.02 % solution 2.5 ml inhalation Q6H RF: 0 Qvar RediHaler 40 mcg/actuation HFA aerosol breath activated 2 inh INHALATION BID RF: 0 levalbuterol HCl [Xopenex] 1.25 mg/3 mL solution for nebulization 2.5 mg INHALATION Q4H Qty: 75 RF: 1 ipratropium-albuterol 0.5 mg-3 mg(2.5 mg base)/3 mL solution for nebulization 3 ml INHALATION Q4-6H PRN (Reason: shortness of breath or wheezing) Qty: 90 RF: 1 prednisone 20 mg tablet 60 mg PO DAILY Qty: 15 RF: 0 azithromycin [Zithromax Z-Rajesh] 250 mg tablet See Rx Instructions .ROUTE .COMPLEX Qty: 6 RF: 0 hydrocodone-acetaminophen [[place]] 5-325 mg tablet 1 tab PO Q4-6H PRN (Reason: pain) Qty: 12 RF: 0 prednisone 10 mg tablets,dose pack See Rx Instructions .ROUTE .COMPLEX Qty: 21 RF: 0 Qvar RediHaler 80 mcg/actuation HFA aerosol breath activated 1 inhalation INHALATION Q12H Qty: 10.6 RF: 0 trazodone 100 mg tablet 300 tab PO BEDTIME RF: 0 levalbuterol tartrate [Xopenex HFA] 45 mcg/actuation HFA aerosol inhaler 1 puff INHALATION Q4-6H PRN (Reason: shortness of breath or wheezing) Qty: 15 RF: 0 metoprolol tartrate 100 mg tablet 100 mg PO BID RF: 0 levalbuterol HCl 1.25 mg/3 mL solution for nebulization 3 ml Inhalation Q6H PRN (Reason: Shortness Of Breath) RF: 0 Zyrtec 10 mg Capsule 10 mg PO DAILY RF: 0 docusate sodium [DOK] 100 mg Capsule 100 mg PO BID PRN (Reason: constipation) Qty: 30 RF: 0 ondansetron 4 mg Tablet,Disintegrating 4 mg sublingual Q4HR PRN (Reason: Nausea) Qty: 20 RF: 0 oxycodone 5 mg Tablet See Rx Instructions .ROUTE .COMPLEX PRN (Reason: Pain, Moderate (4-6)) Qty: 40 RF: 0 oxycodone-acetaminophen [Percocet] 5-325 mg tablet 1 tab PO Q8H PRN (Reason: pain) Qty: 7 RF: 0 Referrals: Binu Ac MD [Primary Care Provider] -
== END 2020-02-12 13:41 | disposition home or self-care (01) ==
PROVIDERS: Emergency Provider Nurse Practitioner Family; PCP Internal Medicine
DX: M54.2 Cervicalgia (principal); S09.90XA Unspecified injury of head, initial encounter; R51 Headache; W10.8XXA Fall (on) (from) other stairs and steps, initial encounter
CPT/HCPCS: 70450; 72125; 99284

== ENCOUNTER 2020-03-05 07:34 | Emergency (ER) | payer OTHER, SELFPAY ==
[2019-05-25 19:29] VITALS: BMI 30.9
--- NOTE | 2020-03-05 07:42 | DI.RAD.S_ITS ---
PROCEDURE: XR CHEST 2V INDICATIONS: cough TECHNIQUE: 2 views of the chest were acquired. COMPARISON: [facility], CR, XR CHEST 2V, 06/20/2019, 13:10. [facility], CR, XR CHEST 2V, 10/20/2019, 8:00. FINDINGS: Surgical changes and devices: Sternotomy and CABG. There is lower cervical spine fusion. Lungs and pleura: Left basilar scars or atelectasis. Lungs are otherwise clear. No pleural effusions or pneumothorax. Mediastinum: Mediastinal contours are normal. Heart size is normal. Bones and chest wall: No suspicious bony abnormalities. Soft tissues appear unremarkable. IMPRESSION: No acute cardiopulmonary disease. Dictated by: Fady De Santiago M.D. on 03/05/2020 at 8:56 Approved by: Fady De Santiago M.D. on 03/05/2020 at 8:58
[2020-03-05 07:48] VITALS: BP 150/52; PULSE 97; RESP 26; TEMP 37; O2SAT 94; BMI 30.9
[2020-03-05] MEDS: ALBUTEROL HFA PREPACK 1 BOX MISC (08:03)
[2020-03-05] MEDS: methylPREDNISolone 125 MG/2 ML VIAL IV (08:08)
--- NOTE | 2020-03-05 08:11 | ED_ITS ---
HPI - SOB/Dyspnea General Chief Complaint: Shortness of Breath/Dyspnea Stated Complaint: aspirated 3 days ago Time Seen by Provider: 03/05/20 07:53 Source: patient Mode of arrival: Ambulatory Limitations: no limitations History of Present Illness HPI Narrative: Patient is a 75-year-old male with history of asthma COPD AFib presenting with cough. He states that he was treated for pneumonia a week ago at [facility] he has 2 days left amoxicillin. 4 days ago he says he was eating a meatball when he coughed an inhaled it into his chest. Since then he had has been coughing up yellow sputum and granules of meatball he says. He cannot stop coughing every time he takes a deep breath he coughs. He was previo usly on prednisone which he said did help with his cough but he was only on it for 5 days. He denies any fevers or sweats or chills. He has some chest tightness in the center of his chest but only when he coughs. He has been taking his Xopenex inhaler every hour for the last few days without any relief. He says albuterol can increase his heart rate. MD Complaint: cough Onset (ago): day(s) (4) Context: recent illness Severity: moderate Related Data Home Medications Medication Instructions Recorded Confirmed multivitamin [Multiple Vitamins] 1 tab PO DAILY #0 12/21/16 05/25/19 aspirin 325 mg PO BEDTIME #0 11/03/17 05/25/19 fluticasone propionate 1 spray INTRANASAL DAILY #0 11/03/17 05/25/19 trazodone 300 tab PO BEDTIME 12/10/17 10/20/19 levalbuterol HCl 3 ml INHALATION Q6H PRN 10/17/18 10/20/19 metoprolol tartrate 100 mg PO BID 10/17/18 05/25/19 Zyrtec 10 mg PO DAILY 05/23/19 05/25/19 acetaminophen-codeine 1 - 2 tab PO Q6H PRN MDD 5 10/20/19 10/20/19 beclomethasone dipropionate [Qvar 2 inh INHALATION BID 10/20/19 10/20/19 RediHaler] clonidine HCl 0.1 - 0.2 mg PO Q8H PRN 10/20/19 10/20/19 ferrous sulfate 325 mg PO DAILY 10/20/19 furosemide 40 mg PO DAILY 10/20/19 10/20/19 ipratropium bromide 2.5 ml INHALATION Q6H 10/20/19 Previous Rx's Medication Instructions Recorded levalbuterol tartrate [Xopenex HFA] 1 puff INHALATION Q4-6H PRN #15 06/23/18 gram docusate sodium [DOK] 100 mg PO BID PRN #30 cap 05/28/19 ondansetron 4 mg SUBLINGUAL Q4HR PRN #20 tab 05/28/19 oxycodone See Rx Instructions .ROUTE 05/28/19 .COMPLEX PRN #40 tab oxycodone-acetaminophen [Percocet] 1 tab PO Q8H PRN #7 tab 06/20/19 azithromycin [Zithromax Z-Rajesh] See Rx Instructions .ROUTE 10/20/19 .COMPLEX #6 tab hydrocodone-acetaminophen [Warren] 1 tab PO Q4-6H PRN #12 tab 10/20/19 ipratropium-albuterol 3 ml INHALATION Q4-6H PRN #90 ml 10/20/19 levalbuterol HCl [Xopenex] 2.5 mg INHALATION Q4H #75 ml 10/20/19 prednisone 60 mg PO DAILY #15 tab 10/20/19 beclomethasone dipropionate [Qvar 1 inhalation INHALATION Q12H #10.6 11/24/19 RediHaler] gram prednisone See Rx Instructions .ROUTE 11/24/19 .COMPLEX #21 each cyclobenzaprine 10 mg PO TID PRN #14 tab 02/12/20 hydrocodone-acetaminophen [Warren] 1 tab PO Q4-6H PRN #7 tab 02/12/20 prednisone 10 mg PO DAILY #30 tab 03/05/20 Allergies Allergy/AdvReac Type Severity Reaction Status Date / Time celecoxib [CELECOXIB] Allergy Mild SWELLING Verified 03/05/20 07:48 latex [LATEX] Allergy Mild RASH Verified 03/05/20 07:48 W/EXTENDED EXPOSURE Sulfa (Sulfonamide Allergy Mild RASH Verified 03/05/20 07:48 Antibiotics) [SULFA (SULFONAMIDE ANTIBIOTICS)] varenicline [VARENICLINE] AdvReac Severe Paranoia Verified 03/05/20 07:48 buprenorphine [BUPRENORPHINE] AdvReac Mild NAUSEA, Verified 03/05/20 07:48 DIZZINESS hyoscyamine [HYOSCYAMINE] AdvReac Mild LEG Verified 03/05/20 07:48 JERKING, ANXIETY, NAUSEA W/I MINUTES Kaejawp-Xna-Irr Reductase AdvReac Mild WEAK Verified 03/05/20 07:48 Inhibitor MUSCLES [WBCYMAX-PAU-GOM REDUCTASE INHIBITOR] diazepam [From Valium] AdvReac Confusion Verified 03/05/20 07:48 hydromorphone AdvReac Confusion Verified 03/05/20 07:48 morphine AdvReac Confusion Verified 03/05/20 07:48 Review of Systems Review of Systems ROS Unobtainable: All systems reviewed & are unremarkable except as noted in HPI and below Constitutional Constitutional: Denies chills, Denies fever(s), Denies lethargy and Denies weakness ENT Ears, Nose, Mouth, and Throat: Denies change in voice, Denies neck pain and Denies sore throat Cardiovascular Cardiovascular: Reports as per HPI and Reports chest pain Respiratory Respiratory: Reports as per HPI, Reports change in phlegm color, Reports cough and Reports excessive phlegm production Gastrointestinal Gastrointestinal: Denies abdominal pain, Denies change in bowel habits, Denies diarrhea, Denies nausea and Denies vomiting Musculoskeletal Musculoskeletal: Denies back pain, Denies myalgias and Denies neck pain Integumentary/Breasts Skin/Breast: Denies pruritus, Denies erythema, Denies rash and Denies wounds Neurologic Neurologic: Denies weakness Hematologic/Lymphatic Hematologic/Lymphatic: Denies easy bruising Patient History Medical History Achalasia (Chronic) Anginal pain (Acute) Asthma (Acute) Atrial fibrillation (Chronic) Cervical spinal stenosis (Chronic) Chronic obstructive pulmonary disease (Chronic 10/23/16) COPD (chronic obstructive pulmonary disease) (Chronic) Coronary artery disease (Acute) History of aortic dissection (Acute ~08/2007) Hypertension (Chronic) Ischemic cardiomyopathy (Acute) Neck pain, chronic (Chronic) Ventricular bigeminy (Acute) Surgical History H/O arthroscopic knee surgery (Chronic 11/15/17) History of arthroplasty of right knee (Acute) History of bilateral total hip arthroplasty (Acute) History of cardiac cath (Acute ~03/2014) History of esophageal surgery (Acute) History of incision and drainage (Acute ~2017) History of prior ablation treatment (Acute ~03/2017) History of surgery (Acute) Hx of cholecystectomy (Acute) Hx of hernia repair (Acute) Hx of sinus surgery (Acute) S/P CABG x 3 (Acute ~08/2007) S/P cervical spinal fusion (Acute) S/P lumbar fusion (Acute) Family History Mother Stroke Social History household members: spouse Smoking Status: Former smoker alcohol intake: current substance use type: does not use Smoking Status: Former smoker alcohol intake frequency: a few times a week Substance Use Type: does not use Exam Initial Vital Signs Initial Vital Signs: Vital Signs Temperature 98.6 F 03/05/20 07:48 Pulse Rate 97 H 03/05/20 07:48 Respiratory Rate 26 H 03/05/20 07:48 Blood Pressure 150/52 H 03/05/20 07:48 Pulse Oximetry 94 03/05/20 07:48 GENERAL: Alert male and in no acute distress. HEENT: Head atraumatic,EOMI, pupils reactive, face symmetric, moist mucous membranes CARDIOVASCULAR: Regular rate and rhythm without murmurs, rubs or gallops. RESPIRATORY: Breath sounds equal bilaterally, no wheezes rales or rhonchi. Speaks in full sentences without difficulty but does cough on every inspiration ABDOMEN: Soft, nontender. Normoactive bowel sounds all 4 quadrants. No guarding or rebound. EXTREMITIES: Normal range of motion, no clubbing or edema. Neurovascularly intact NEUROLOGICAL: Alert and oriented x4.Normal gait and speech. Cranial nerves II through XII grossly intact. SKIN: Warm, dry, no laceration, no petechiae, no rashes or lesions. Course Orders Ordered: ED Orders 03/05/20 07:42 Chest [XR chest 2V] Stat 03/05/20 07:53 Consult to Respiratory Therapy Evaluate & Treat Complete Blood Count AUTO DIFF Stat EKG-12 Lead Stat 03/05/20 08:00 C-Reactive Protein Quant Stat Comprehensive Metabolic Panel Stat D Dimer Stat Ferritin Stat Lactate (Lactic Acid) Stat Lactate Dehydrogenase Stat Magnesium Stat NT-proBNP (BNP-Adult 18+) Stat Procalcitonin Stat Troponin & CK Cardiac Panel Stat 03/05/20 08:43 Blood Culture Stat Discontinued Medications Albuterol (Ventolin Hfa Prepack) 1 box MISC SEEINSTR ONE Stop: 03/05/20 07:54 Last Admin: 03/05/20 08:03 Dose: 1 box Documented by: LAN Sodium Chloride (Normal Saline 0.9%) 1,000 mls @ 1,000 mls/hr IV BOLUS ONE Stop: 03/05/20 10:09 Last Infusion: 03/05/20 10:41 Dose: 0 mls/hr Documented by: Admin: 03/05/20 09:35 Dose: 1,000 mls/hr Documented by: AZAM Methylprednisolone (Solu-Medrol 125 Mg Vial) 125 mg IV NOW ONE Stop: 03/05/20 07:54 Last Admin: 03/05/20 08:08 Dose: 125 mg Documented by: AZAM Oxycodone/Acetaminophen (Percocet 5/325) 1 tab PO NOW ONE Stop: 03/05/20 08:40 Last Admin: 03/05/20 08:43 Dose: 1 tab Documented by: AZAM Vital Signs Vital signs: Vital Signs - 8 hr 03/05/20 07:48 03/05/20 08:22 03/05/20 09:00 Temperature 98.6 F Pulse Rate 97 H 84 90 Respiratory Rate 26 H 22 20 Blood Pressure 150/52 H 139/105 H Pulse Oximetry 94 93 03/05/20 10:01 03/05/20 10:30 03/05/20 10:34 Temperature 98.6 F Pulse Rate 88 91 H 90 Respiratory Rate 21 Blood Pressure 140/80 Pulse Oximetry 91 92 91 MDM - SOB/Dyspnea Lab Data Attestation: I reviewed the patient's lab results. Result diagrams: 03/05/20 07:53 03/05/20 08:00 Labs: Lab Results 03/05/20 03/05/20 03/05/20 Range/Units 07:53 08:00 08:00 WBC 8.4 (4.5-11.0) X10^3/uL RBC 4.51 (4.5-5.9) X10^6/uL Hgb 13.2 L (13.5-17.5) g/dL Hct 39.1 L (41-53) % MCV 86.6 (80-100) fL MCH 29.3 (26-34) PG MCHC 33.9 (30-36) % RDW 15.9 H (11.6-14.8) % Plt Count 255 (150-400) X10^3/uL Neut % (Auto) 71.5 (50-75) % Lymph % (Auto) 14.2 L (25-40) % [place] % (Auto) 9.6 (3-14) % Eos % (Auto) 3.8 (2-4) % Baso % (Auto) 0.9 (0-2) % Neut # (Auto) 6000 (4142-2309) /uL Lymph # (Auto) 1200 (5262-8131) /uL [place] # (Auto) 800 (0-900) /uL Eos # (Auto) 300 (0-450) /uL Baso # (Auto) 100 (0-100) /uL D-Dimer (<230) ng/mL Sodium (137-145) mmol/L Potassium (3.4-5.1) mmol/L Chloride (98-107) mmol/L Carbon Dioxide (22-32) mmol/L BUN (9-20) mg/dL Creatinine (0.66-1.25) mg/dL Estimated GFR (>60) mL/min BUN/Creatinine Ratio (6-22) Glucose (80-110) mg/dL Lactate (0.7-2.1) mmol/L Calcium (8.4-10.2) mg/dL Magnesium 1.9 (1.6-2.3) mg/dL Ferritin (18-464) ng/mL Total Bilirubin (0.2-1.3) mg/dL AST (17-59) IU/L ALT (<50) IU/L Alkaline Phosphatase (38-126) U/L Lactate Dehydrogenase (313-618) U/L Total Creatine Kinase 261 H (55-170) U/L CK-MB (CK-2) 2.99 H (<2.37) ng/mL CK-MB (CK-2) Rel Index 1.1 L (1.5-5.0) % Troponin I < 0.012 (0.01-0.034) ng/mL C-Reactive Protein (<1.0) mg/dL NT-Pro-B Natriuret Pep 67 (<450) pg/mL Total Protein (6.3-8.2) g/dL Albumin (3.5-5.0) g/dL Globulin (1.7-4.1) g/dL Albumin/Globulin Ratio (1.0-2.8) Procalcitonin < 0.05 (<0.5) ng/mL 03/05/20 03/05/20 03/05/20 Range/Units 08:00 08:00 08:00 WBC (4.5-11.0) X10^3/uL RBC (4.5-5.9) X10^6/uL Hgb (13.5-17.5) g/dL Hct (41-53) % MCV (80-100) fL MCH (26-34) PG MCHC (30-36) % RDW (11.6-14.8) % Plt Count (150-400) X10^3/uL Neut % (Auto) (50-75) % Lymph % (Auto) (25-40) % [place] % (Auto) (3-14) % Eos % (Auto) (2-4) % Baso % (Auto) (0-2) % Neut # (Auto) (8153-1257) /uL Lymph # (Auto) (7442-6417) /uL [place] # (Auto) (0-900) /uL Eos # (Auto) (0-450) /uL Baso # (Auto) (0-100) /uL D-Dimer 391 H (<230) ng/mL Sodium 137 (137-145) mmol/L Potassium 3.4 (3.4-5.1) mmol/L Chloride 102 (98-107) mmol/L Carbon Dioxide 25 (22-32) mmol/L BUN 12 (9-20) mg/dL Creatinine 0.82 (0.66-1.25) mg/dL Estimated GFR > 60.0 (>60) mL/min BUN/Creatinine Ratio 14.6 (6-22) Glucose 165 H (80-110) mg/dL Lactate 3.1 H (0.7-2.1) mmol/L Calcium 9.3 (8.4-10.2) mg/dL Magnesium (1.6-2.3) mg/dL Ferritin (18-464) ng/mL Total Bilirubin 0.7 (0.2-1.3) mg/dL AST 34 (17-59) IU/L ALT 30 (<50) IU/L Alkaline Phosphatase 80 (38-126) U/L Lactate Dehydrogenase (313-618) U/L Total Creatine Kinase (55-170) U/L CK-MB (CK-2) (<2.37) ng/mL CK-MB (CK-2) Rel Index (1.5-5.0) % Troponin I (0.01-0.034) ng/mL C-Reactive Protein (<1.0) mg/dL NT-Pro-B Natriuret Pep (<450) pg/mL Total Protein 7.0 (6.3-8.2) g/dL Albumin 4.4 (3.5-5.0) g/dL Globulin 2.6 (1.7-4.1) g/dL Albumin/Globulin Ratio 1.7 (1.0-2.8) Procalcitonin (<0.5) ng/mL 03/05/20 03/05/20 03/05/20 Range/Units 08:00 08:00 10:30 WBC (4.5-11.0) X10^3/uL RBC (4.5-5.9) X10^6/uL Hgb (13.5-17.5) g/dL Hct (41-53) % MCV (80-100) fL MCH (26-34) PG MCHC (30-36) % RDW (11.6-14.8) % Plt Count (150-400) X10^3/uL Neut % (Auto) (50-75) % Lymph % (Auto) (25-40) % [place] % (Auto) (3-14) % Eos % (Auto) (2-4) % Baso % (Auto) (0-2) % Neut # (Auto) (2472-7998) /uL Lymph # (Auto) (0055-5186) /uL [place] # (Auto) (0-900) /uL Eos # (Auto) (0-450) /uL Baso # (Auto) (0-100) /uL D-Dimer (<230) ng/mL Sodium (137-145) mmol/L Potassium (3.4-5.1) mmol/L Chloride (98-107) mmol/L Carbon Dioxide (22-32) mmol/L BUN (9-20) mg/dL Creatinine (0.66-1.25) mg/dL Estimated GFR (>60) mL/min BUN/Creatinine Ratio (6-22) Glucose (80-110) mg/dL Lactate 2.4 H (0.7-2.1) mmol/L Calcium (8.4-10.2) mg/dL Magnesium (1.6-2.3) mg/dL Ferritin 27 (18-464) ng/mL Total Bilirubin (0.2-1.3) mg/dL AST (17-59) IU/L ALT (<50) IU/L Alkaline Phosphatase (38-126) U/L Lactate Dehydrogenase 444 (313-618) U/L Total Creatine Kinase (55-170) U/L CK-MB (CK-2) (<2.37) ng/mL CK-MB (CK-2) Rel Index (1.5-5.0) % Troponin I (0.01-0.034) ng/mL C-Reactive Protein 2.2 H (<1.0) mg/dL NT-Pro-B Natriuret Pep (<450) pg/mL Total Protein (6.3-8.2) g/dL Albumin (3.5-5.0) g/dL Globulin (1.7-4.1) g/dL Albumin/Globulin Ratio (1.0-2.8) Procalcitonin (<0.5) ng/mL ECG Data Attestation: I personally reviewed and interpreted this ECG as follows: Interpretation: Normal sinus rhythm rate 94 p.r. interval 162 QRS [address] changes MDM Narrative Medical decision making narrative: The patient is doing much better after albuterol he was on the monitor he had no significant increase in heart rate and in fact his cough and breathing improved significantly. His lactic acid is 3.1 but he has no leukocytosis and x-ray is clear. He is also taking Augmentin. He has actually seen evaluated [facility] on 03/03/2020 after his meatball incident. The patient is feeling significantly better however lactate is noted to be elevated at 3.1. He is given 1 L of fluid repeat lactate has improved. He feels ready and able to go home. At this time I recommend him finishing his current course of antibiotics I will give him a longer taper of prednisone and I recommend he use albuterol rather than Xopenex it does seem to help his breat yuliet and cough more. I discussed all findings with the patient, Education has been performed regard ing treatment plan, diagnosis, warning signs and symptoms and all concerns have been addressed. Verbally agree with and understood all of the above. Discharge Plan Departure Patient Disposition: Home Clinical Impression: COPD exacerbation Discharge Date/Time: 03/05/20 11:10 Instructions: Chronic Obstructive Pulmonary Disease Activity Restrictions/Additional Instructions: COVID is a send out this will take 2-3 days to return we will call you with results, please self quarantine and see below until results *You have been diagnosed with COPD exacerbation *What to do: At this time finished taking her antibiotic as previously prescribed no new antibiotics are indicated *Continue to take medications as directed--> SENT TO [place] Recommend using albuterol instead of Xopenex 1-2 puffs with spacer every 4 hours Prednisone taper 40 mg for 3 days, 30 mg for 3 days, 20 mg for 3 days, 10 mg for 3 days *Follow up with your primary care provider in 2-3 days *Return to ER if you should have worsening worsening cough, worsening shortness of breath, [or] any new, worsening or concerning symptoms CDC Guidelines for home isolation: - Stay away from others - Limit contact with pets and animals: If you must care for a pet, wash your hands before and after interacting with them - Wear a mask if you are sick - Cover your mouth and nose with a tissue when you cough or sneeze. Dispose of tissues in a lined trash can and wash your hands immediately with soap and water for at least 20 seconds. If soap and water are not available, clean hands with alcohol-based hand explosive ordnance disposal manager that contains at least 60% alcohol. - Clean your hands often with soap and water for at least 20 seconds - Avoid touching your eyes, nose and mouth with unwashed hands - Do not share dishes, drinking glasses, cups, eating utensils, towels, or bedding with other people in your home. After using these items, wash them thoroughly with soap and water or put in the veneer matcher. - Clean high-touch surfaces in your isolation area (?sick room? and bathroom) every day; let a caregiver clean and disinfect high-touch surfaces in other areas of the home. Clean the area or item with soap and water or another det ergent if it is dirty. Then, use a household disinfectant. Seek medical attention, but call first: - Seek medical care right away if your illness is worsening (for example, if you have difficulty breathing). - Call your doctor before going in: Before going to the doctor?s office or emergency room, call ahead and tell them your symptoms. They will tell you what to do. - If possible, put on a facemask before you enter the building. If you can?t put on a facemask, try to keep a safe distance from other people (at least 6 feet away). This will help protect the people in the office or waiting room. - Follow care instructions from your healthcare provider and local health department: Your local health authorities will give instructions on checking your symptoms and reporting information. Emergency warning signs for COVID-19: - Difficulty breathing or shortness of breath - Persistent pain or pressure in the chest - New confusion or inability to arouse - Bluish lips or face Prescriptions: New prednisone 10 mg tablet 10 mg PO DAILY Qty: 30 RF: 0 No Action multivitamin [Multiple Vitamins] 1 EACH tablet 1 tab PO DAILY Qty: 0 RF: 0 aspirin 325 MG tablet,delayed release (DR/EC) 325 mg PO BEDTIME Qty: 0 RF: 0 fluticasone propionate 16 GM spray,suspension 1 spray Intranasal DAILY Qty: 0 RF: 0 acetaminophen-codeine 300-30 mg tablet 1 - 2 tab PO Q6H MDD 5 PRN (Reason: pain) RF: 0 furosemide 40 mg Tablet 40 mg PO DAILY RF: 0 clonidine HCl 0.1 mg tablet 0.1 - 0.2 mg PO Q8H PRN (Reason: withdrawal symptoms) RF: 0 ferrous sulfate 325 mg (65 mg iron) tablet,delayed release (DR/EC) 325 mg PO DAILY RF: 0 ipratropium bromide 0.02 % solution 2.5 ml inhalation Q6H RF: 0 Qvar RediHaler 40 mcg/actuation HFA aerosol breath activated 2 inh INHALATION BID RF: 0 levalbuterol HCl [Xopenex] 1.25 mg/3 mL solution for nebulization 2.5 mg INHALATION Q4H Qty: 75 RF: 1 ipratropium-albuterol 0.5 mg-3 mg(2.5 mg base)/3 mL solution for nebulization 3 ml INHALATION Q4-6H PRN (Reason: shortness of breath or wheezing) Qty: 90 RF: 1 prednisone 20 mg tablet 60 mg PO DAILY Qty: 15 RF: 0 azithromycin [Zithromax Z-Rajesh] 250 mg tablet See Rx Instructions .ROUTE .COMPLEX Qty: 6 RF: 0 hydrocodone-acetaminophen [Warren] 5-325 mg tablet 1 tab PO Q4-6H PRN (Reason: pain) Qty: 12 RF: 0 prednisone 10 mg tablets,dose pack See Rx Instructions .ROUTE .COMPLEX Qty: 21 RF: 0 Qvar RediHaler 80 mcg/actuation HFA aerosol breath activated 1 inhalation INHALATION Q12H Qty: 10.6 RF: 0 trazodone 100 mg tablet 300 tab PO BEDTIME RF: 0 levalbuterol tartrate [Xopenex HFA] 45 mcg/actuation HFA aerosol inhaler 1 puff INHALATION Q4-6H PRN (Reason: shortness of breath or wheezing) Qty: 15 RF: 0 metoprolol tartrate 100 mg tablet 100 mg PO BID RF: 0 levalbuterol HCl 1.25 mg/3 mL solution for nebulization 3 ml Inhalation Q6H PRN (Reason: Shortness Of Breath) RF: 0 Zyrtec 10 mg Capsule 10 mg PO DAILY RF: 0 docusate sodium [DOK] 100 mg Capsule 100 mg PO BID PRN (Reason: constipation) Qty: 30 RF: 0 ondansetron 4 mg Tablet,Disintegrating 4 mg sublingual Q4HR PRN (Reason: Nausea) Qty: 20 RF: 0 oxycodone 5 mg Tablet See Rx Instructions .ROUTE .COMPLEX PRN (Reason: Pain, Moderate (4-6)) Qty: 40 RF: 0 oxycodone-acetaminophen [Percocet] 5-325 mg tablet 1 tab PO Q8H PRN (Reason: pain) Qty: 7 RF: 0 hydrocodone-acetaminophen [Warren] 5-325 mg tablet 1 tab PO Q4-6H PRN (Reason: pain) Qty: 7 RF: 0 cyclobenzaprine 10 mg tablet 10 mg PO TID PRN (Reason: muscle spasm) Qty: 14 RF: 0 Referrals: Binu Ac MD [Primary Care Provider] -
[2020-03-05 08:21] LABS: Add Manual Diff / Slide Review NO; Basophils Absolute Auto 100 /uL (0-100); Basophils Percent Auto 0.9 % (0-2); Eosinophils Absolute Auto 300 /uL (0-450); Eosinophils Percent Auto 3.8 % (2-4); Hematocrit 39.1 % (41-53); Hemoglobin 13.2 g/dL (13.5-17.5); Lymphocytes Absolute Auto 1200 /uL (1100-4500); Lymphocytes Percent Auto 14.2 % (25-40); Mean Corpuscular HGB Conc 33.9 % (30-36); Mean Corpuscular Hemoglobin 29.3 PG (26-34); Mean Corpuscular Volume 86.6 fL (80-100); Monocytes Absolute Auto 800 /uL (0-900); Monocytes Percent Auto 9.6 % (3-14); Neutrophils Absolute Auto 6000 /uL (1500-7000); Neutrophils Percent Auto 71.5 % (50-75); Platelet Count 255 X10^3/uL (150-400); Red Blood Cell Count 4.51 X10^6/uL (4.5-5.9); Red Cell Distribution Width 15.9 % (11.6-14.8); White Blood Cell Count 8.4 X10^3/uL (4.5-11.0)
[2020-03-05 08:22] VITALS: PULSE 84; RESP 22
[2020-03-05 08:28] LABS: D Dimer 391 ng/mL (<230)
[2020-03-05 08:30] LABS: Creatine Kinase 261 U/L (55-170); Lactate (Lactic Acid) 3.1 mmol/L (0.7-2.1); Magnesium 1.9 mg/dL (1.6-2.3)
[2020-03-05 08:31] LABS: Alanine Aminotransferase 30 IU/L (<50); Albumin 4.4 g/dL (3.5-5.0); Albumin Globulin Ratio 1.7 (1.0-2.8); Alkaline Phosphatase 80 U/L (38-126); Aspartate Aminotransferase 34 IU/L (17-59); BUN Creatinine Ratio 14.6 (6-22); Bilirubin Total 0.7 mg/dL (0.2-1.3); Blood Urea Nitrogen 12 mg/dL (9-20); Calcium 9.3 mg/dL (8.4-10.2); Carbon Dioxide 25 mmol/L (22-32); Chloride 102 mmol/L (98-107); Estimated Glomerular Filt Rate > 60.0 mL/min (>60); Globulin 2.6 g/dL (1.7-4.1); Glucose 165 mg/dL (80-110); HEMOLYSIS < 15 (0-50); Potassium 3.4 mmol/L (3.4-5.1); Sodium 137 mmol/L (137-145)
[2020-03-05 08:36] LABS: Lactate Dehydrogenase 444 U/L (313-618)
[2020-03-05 08:40] LABS: C-Reactive Protein Quant 2.2 mg/dL (<1.0)
[2020-03-05 08:42] LABS: NT-proBNP (BNP-Adult 18+) 67 pg/mL (<450); Troponin I < 0.012 ng/mL (0.01-0.034)
[2020-03-05] MEDS: OXYCODONE/ACETAMINOPHEN 5/325 TABLET 1 TAB PO (08:43)
[2020-03-05 08:45] LABS: CKMB % Relative Index 1.1 % (1.5-5.0); Creatine Kinase MB 2.99 ng/mL (<2.37); Procalcitonin < 0.05 ng/mL (<0.5)
[2020-03-05 09:00] VITALS: BP 139/105; PULSE 90; RESP 20; O2SAT 93
[2020-03-05 09:13] LABS: Ferritin 27 ng/mL (18-464)
[2020-03-05] MEDS: SODIUM CHLORIDE 0.9% 1,000 ML 1000 ML IV (09:35)
[2020-03-05 10:01] VITALS: PULSE 88; RESP 21; O2SAT 91
[2020-03-05 10:12] LABS: Reflexed Lactate in 2 Hours Y
[2020-03-05 10:30] VITALS: PULSE 91; O2SAT 92
[2020-03-05 10:34] VITALS: BP 140/80; PULSE 90; TEMP 37; O2SAT 91
[2020-03-05 10:49] LABS: Lactate 2HR (Lactic Acid Rflx) 2.4 mmol/L (0.7-2.1)
[2020-03-06 17:36] LABS: COVID19 Sendout Not Detected (Not Detected)
== END 2020-03-05 11:10 | disposition home or self-care (01) ==
PROVIDERS: Emergency Provider Emergency Medicine; PCP Internal Medicine
DX: J44.1 Chronic obstructive pulmonary disease with (acute) exacerbation (principal); R07.9 Chest pain, unspecified
CPT/HCPCS: 36415; 71046; 80053; 82550; 82553; 82728; 83605; 83615; 83735; 83880; 84145; 84484; 85025; 85379; 86140; 87040; 87635; 93005; 94640; 96361; 96374; 99284; 99285; J2930

== ENCOUNTER 2020-05-15 11:25 | Emergency (ER) | payer OTHER, SELFPAY ==
[2019-05-25 19:29] VITALS: BMI 30.9
[2020-05-15] VITALS (12 sets, daily range): BP systolic 180–199; BP diastolic 91–104; PULSE 82–112; RESP 17–25; TEMP 36.6; O2SAT 93–97; BMI 31.4
--- NOTE | 2020-05-15 11:37 | DI.RAD.S_ITS ---
PROCEDURE: XR CHEST 1V INDICATIONS: suspected sepsis TECHNIQUE: One view of the chest was acquired. COMPARISON: [facility], CR, XR CHEST 2V, 03/05/2020, 7:42. [facility], CR, XR CHEST 1V, 11/24/2019, 11:11. FINDINGS: Surgical changes and devices: Sternotomy wires, presumed prior CABG. Prior cervical fusions partially visualized.. Lungs and pleura: Lungs are chronically mildly abnormal with an interstitial prominence perhaps reflecting a prior smoking history.. No pleural effusions or pneumothorax. Mediastinum: Mediastinal contours appear normal. Heart size is normal. Bones and chest wall: No suspicious bony lesions. Overlying soft tissues appear unremarkable. IMPRESSION: Stable over time with chronic interstitial prominence likely reflecting a prior smoking history. Prior CABG. Prior cervical fusions. No pneumonia found. Dictated by: Damien Medina M.D. on 05/15/2020 at 12:18 Approved by: Damien Medina M.D. on 05/15/2020 at 12:19
[2020-05-15 11:53] LABS: Add Manual Diff / Slide Review NO; Basophils Absolute Auto 100 /uL (0-100); Basophils Percent Auto 1.2 % (0-2); Eosinophils Absolute Auto 300 /uL (0-450); Eosinophils Percent Auto 5.5 % (2-4); Hemoglobin 13.7 g/dL (13.5-17.5); Lymphocytes Absolute Auto 1000 /uL (1100-4500); Lymphocytes Percent Auto 20.7 % (25-40); Mean Corpuscular HGB Conc 33.5 % (30-36); Mean Corpuscular Hemoglobin 30.5 PG (26-34); Mean Corpuscular Volume 90.8 fL (80-100); Monocytes Absolute Auto 500 /uL (0-900); Monocytes Percent Auto 9.5 % (3-14); Neutrophils Absolute Auto 3100 /uL (1500-7000); Neutrophils Percent Auto 63.1 % (50-75); Platelet Count 206 X10^3/uL (150-400); Red Blood Cell Count 4.51 X10^6/uL (4.5-5.9); Red Cell Distribution Width 15.1 % (11.6-14.8)
[2020-05-15 11:59] LABS: PTT Partial Thromboplastin Tim 30 SECONDS (26.4-36.2)
[2020-05-15 12:05] LABS: Alanine Aminotransferase 53 IU/L (<50); Albumin 4.2 g/dL (3.5-5.0); Albumin Globulin Ratio 1.4 (1.0-2.8); Alkaline Phosphatase 134 U/L (38-126); Aspartate Aminotransferase 49 IU/L (17-59); BUN Creatinine Ratio 13.9 (6-22); Bilirubin Total 0.5 mg/dL (0.2-1.3); Blood Urea Nitrogen 10 mg/dL (9-20); Calcium 9.1 mg/dL (8.4-10.2); Carbon Dioxide 26 mmol/L (22-32); Chloride 100 mmol/L (98-107); Estimated Glomerular Filt Rate > 60.0 mL/min (>60); Globulin 2.9 g/dL (1.7-4.1); Glucose 352 mg/dL (80-110); HEMOLYSIS < 15 (0-50); Lipase 68 U/L (23-300); Potassium 4.5 mmol/L (3.4-5.1); Sodium 135 mmol/L (137-145); Total Protein 7.1 g/dL (6.3-8.2)
[2020-05-15 12:10] LABS: Bacteria Urine None Seen; RBC Urine None Seen (0-5/HPF); WBC Urine None Seen (0-5/HPF)
[2020-05-15] MEDS: SODIUM CHLORIDE 0.9% 1,000 ML 1000 ML IV (12:15)
[2020-05-15 12:23] LABS: Lactate (Lactic Acid) 4.1 mmol/L (0.7-2.1)
[2020-05-15 12:23] LABS: COVID19 -Nasal RAPID Negative (Negative)
--- NOTE | 2020-05-15 12:29 | ED_ITS ---
HPI - SOB/Dyspnea <William JORDAN Kaplan - Last Filed: 05/16/20 02:41> General Chief Complaint: Weakness Stated Complaint: cough/weakness x4 days Time Seen by Provider: 05/15/20 11:30 Source: patient Mode of arrival: Wheelchair Limitations: no limitations History of Present Illness HPI Narrative: This is a 75-year-old male, former smoker, with history of COPD, AFib, hypertension, CABG and CAD presents to ED with chief complain of short of breath and breathing trouble. Patient reports he lost his portable nebulizer 2 weeks ago and ran out of Lasix 1 week ago. He reports dizziness with syncopal episode least once he was went to the bathroom, difficulty concentrating due to dyspnea and short of breath. Patient denies fever, sore throat but has occasional productive cough with yellow/clear/brown mucus. Patient reports has been sitting up to sleep last several days. Patient reports feels like he is gaining weight and swelling to his legs. Patient reports right-sided shoulder and chest pain from a fall 1 week ago also reports left chest and low back pain. Related Data Home Medications Medication Instructions Recorded Confirmed multivitamin [Multiple Vitamins] 1 tab PO DAILY #0 12/21/16 05/25/19 aspirin 325 mg PO BEDTIME #0 11/03/17 05/25/19 fluticasone propionate 1 spray INTRANASAL DAILY #0 11/03/17 05/25/19 trazodone 300 tab PO BEDTIME 12/10/17 10/20/19 levalbuterol HCl 3 ml INHALATION Q6H PRN 10/17/18 10/20/19 metoprolol tartrate 100 mg PO BID 10/17/18 05/25/19 Zyrtec 10 mg PO DAILY 05/23/19 05/25/19 acetaminophen-codeine 1 - 2 tab PO Q6H PRN MDD 5 10/20/19 10/20/19 beclomethasone dipropionate [Qvar 2 inh INHALATION BID 10/20/19 10/20/19 RediHaler] clonidine HCl 0.1 - 0.2 mg PO Q8H PRN 10/20/19 10/20/19 ferrous sulfate 325 mg PO DAILY 10/20/19 furosemide 40 mg PO DAILY 10/20/19 10/20/19 ipratropium bromide 2.5 ml INHALATION Q6H 10/20/19 Previous Rx's Medication Instructions Recorded levalbuterol tartrate [Xopenex HFA] 1 puff INHALATION Q4-6H PRN #15 06/23/18 gram docusate sodium [DOK] 100 mg PO BID PRN #30 cap 05/28/19 ipratropium-albuterol 3 ml INHALATION Q4-6H PRN #90 ml 10/20/19 cyclobenzaprine 10 mg PO TID PRN #14 tab 02/12/20 prednisone 50 mg PO DAILY 5 Days tab 05/15/20 Allergies Allergy/AdvReac Type Severity Reaction Status Date / Time celecoxib [CELECOXIB] Allergy Mild SWELLING Verified 05/15/20 11:34 latex [LATEX] Allergy Mild RASH Verified 05/15/20 11:34 W/EXTENDED EXPOSURE Sulfa (Sulfonamide Allergy Mild RASH Verified 05/15/20 11:34 Antibiotics) [SULFA (SULFONAMIDE ANTIBIOTICS)] varenicline [VARENICLINE] AdvReac Severe Paranoia Verified 05/15/20 11:34 buprenorphine [BUPRENORPHINE] AdvReac Mild NAUSEA, Verified 05/15/20 11:34 DIZZINESS hyoscyamine [HYOSCYAMINE] AdvReac Mild LEG Verified 05/15/20 11:34 JERKING, ANXIETY, NAUSEA W/I MINUTES Gyssmwx-Rai-Sce Reductase AdvReac Mild WEAK Verified 05/15/20 11:34 Inhibitor MUSCLES [UHURMET-FRU-ATG REDUCTASE INHIBITOR] diazepam [From Valium] AdvReac Confusion Verified 05/15/20 11:34 morphine AdvReac Confusion Verified 05/15/20 11:34 Review of Systems <JORDAN Barber - Last Filed: 05/16/20 02:41> Review of Systems Narrative: General: See HPI HEENT: Denies sinus pain, ear pain, sore throat, difficulty swallowing, dizziness. Respiratory: See HPI Cardiovascular: See HPI Gastrointestinal: Denies nausea, vomiting, abdominal pain, diarrhea, constipation, melena. : Denies dysuria, frequency, incontinence, hematuria, urinary retention. Musculoskeletal: See HPI Skin: Denies rash, skin lesions, or other. Neurologic: Denies weakness, headache, numbness, change in speech, confusion, seizures, incoordination. Psychiatric: No concerning psychosocial issues. 12-point review of systems is negative except for those stated above. Patient History <JORDAN Barber - Last Filed: 05/16/20 02:41> Medical History (Updated 05/16/20 @ 02:40 by JORDAN Barber) Achalasia (Chronic) Anginal pain (Acute) Asthma (Acute) Atrial fibrillation (Chronic) Cervical spinal stenosis (Chronic) Chronic obstructive pulmonary disease (Chronic 10/23/16) COPD (chronic obstructive pulmonary disease) (Chronic) Coronary artery disease (Acute) History of aortic dissection (Acute ~08/2007) Hypertension (Chronic) Ischemic cardiomyopathy (Acute) Narcotic dependence (Acute) Neck pain, chronic (Chronic) Ventricular bigeminy (Acute) Surgical History H/O arthroscopic knee surgery (Chronic 11/15/17) History of arthroplasty of right knee (Acute) History of bilateral total hip arthroplasty (Acute) History of cardiac cath (Acute ~03/2014) History of esophageal surgery (Acute) History of incision and drainage (Acute ~2016) History of prior ablation treatment (Acute ~03/2017) History of surgery (Acute) Hx of cholecystectomy (Acute) Hx of hernia repair (Acute) Hx of sinus surgery (Acute) S/P CABG x 3 (Acute ~08/2007) S/P cervical spinal fusion (Acute) S/P lumbar fusion (Acute) Family History Mother Stroke Social History household members: spouse Smoking Status: Former smoker alcohol intake: current substance use type: does not use Smoking Status: Former smoker alcohol intake frequency: a few times a week Substance Use Type: does not use Exam <JORDAN Barber - Last Filed: 05/16/20 02:41> Narrative Exam Narrative: GEN: Alert, oriented x 3, ill appearing and well nourished, and in mild respiratory distress with tachypnea. Patient difficulty completing along sentences without stopping to catch breath. Head: Normal cephalic, atraumatic. No scalp or temporal tenderness, palpable mass or rash. EYES: Pupils are equal, round, and reactive to light and accommodation. Extraocular muscles are intact bilaterally. There is no subconjunctival hemorrhage, exudate and sclera non-icteric. ENT: Bilateral auditory canals and tympanic membranes clear. Hearing grossly intact. Nose without bleeding, purulent discharge or deviation. Facial sinuses nontender to palpate. Mucous membrane moist, no mucosal lesion. Throat without erythema, tonsillar hypertrophy or exudate. Uvula in midline, airway patent. Neck: Trachea in midline. No JVD, non-tender without lymphadenopathy. No masses or thyroid megaly. Supple, non-tender and no meningeal signs. CARDIAC: Normal irregular regular rhythm without murmurs, gallops, or rubs. No chest wall tenderness. No peripheral edema, cyanosis or pallor. Capillary refill is less than 2 seconds. RESPIRATORY: Lungs are clear to auscultate bilaterally in upper lobes and wheezing in bilateral. No cough, rales, or rhonchi. No stridor and accessary muscle used. ABD: Abdomen soft, nontender and non-distended. No guarding or rebound tenderness to palpate. Bowel sounds are normal in all 4 quadrants. There is no palpable masses or organomegaly. EXT: Full painless ROM of all extremities with no loss of sensation, strength, effusion or edema. SKIN: Warm, dry, normal color for patient. No erythema, lesions or rash over visible areas. BACK: Nontender without deformity or crepitance. No flank tenderness. NEUROLOGICAL: Alert and oriented to place, time and person. Sensation and motor function intact bilaterally. No facial droops, dysphasia. PSYCHIATRIC: Good judgement and reason, without hallucinations, abnormal affect or abnormal behaviors during the examination. Patient is not suicidal. Initial Vital Signs Initial Vital Signs: Vital Signs Temperature 97.8 F 05/15/20 11:28 Pulse Rate 91 H 05/15/20 11:28 Respiratory Rate 25 H 05/15/20 11:28 Blood Pressure 187/104 H 05/15/20 11:28 Pulse Oximetry 96 05/15/20 11:28 <Karthikeyan Prakash DO - Last Filed: 05/16/20 07:05> Initial Vital Signs Initial Vital Signs: Vital Signs Temperature 97.8 F 05/15/20 11:28 Pulse Rate 91 H 05/15/20 11:28 Respiratory Rate 25 H 05/15/20 11:28 Blood Pressure 187/104 H 05/15/20 11:28 Pulse Oximetry 96 05/15/20 11:28 Scores <William Kaplan [facility] - Last Filed: 05/16/20 02:41> GCS Keith coma scale eye opening: Spontaneous [place] coma scale verbal response: Orientated Keith coma scale motor response: Obey commands Keith coma scale total score: 15 qSOFA Altered Mental Status (GCS <15): No Respiratory rate greater than/equal to 22: Yes Systolic blood pressure less than or equal to 100: No qSOFA Total: 1 0-1 Not High Risk 1-3 High risk Course <William Kaplan [facility] - Last Filed: 05/16/20 02:41> Orders Ordered: Discontinued Medications Hydrocodone Bitart/Acetaminophen ([place] 5/325) 1 tab PO NOW ONE Stop: 05/15/20 12:29 Last Admin: 05/15/20 12:35 Dose: 1 tab Documented by: IVANA Albuterol (Ventolin Hfa (Vent/Covid R/O)) 2 puff INH NOW ONE Stop: 05/15/20 12:02 Last Admin: 05/15/20 12:31 Dose: 2 puff Documented by: LEANA Albuterol (Ventolin) 5 mg INH NOW ONE Stop: 05/15/20 12:35 Last Admin: 05/15/20 14:50 Dose: 5 mg Documented by: JOSIAS Furosemide (Lasix) 20 mg IV NOW ONE Stop: 05/15/20 13:31 Last Admin: 05/15/20 13:36 Dose: 20 mg Documented by: WILLY Hydromorphone HCl (Dilaudid) 0.5 mg IV NOW ONE Stop: 05/15/20 13:10 Last Admin: 05/15/20 13:15 Dose: 0.5 mg Documented by: WILLY Sodium Chloride (Normal Saline 0.9%) 1,000 mls @ 1,000 mls/hr IV BOLUS ONE Stop: 05/15/20 12:36 Last Infusion: 05/15/20 14:49 Dose: 0 mls/hr Documented by: Admin: 05/15/20 12:15 Dose: 1,000 mls/hr Documented by: IVANA Ketorolac Tromethamine (Toradol) 15 mg IV NOW ONE Stop: 05/15/20 12:26 Last Admin: 05/15/20 12:34 Dose: 15 mg Documented by: IVANA Methylprednisolone (Solu-Medrol 125 Mg Vial) 125 mg IV NOW ONE Stop: 05/15/20 12:26 Last Admin: 05/15/20 12:34 Dose: 125 mg Documented by: IVANA Reevaluation(s) Reevaluation #1: Patient requesting pain medication for back, shoulder and chest. Initially administered [place] since patient shows allergies to morphine and Dilaudid. Patient called back requesting additional pain medication since no relief about 25 minutes after. Patient reports he is able to tolerate Dilaudid. Dilaudid has removed from allergy list and ordered 0.5 mg IV at this time. Waiting for troponin and proBNP lab results. Time: 13:13 Reevaluation #2: Elevated lactate of 4.1 reported from lab. No leukocytosis. Chest x-ray shows no pneumonia at this time. Covid test was negative. Procalcitonin is <0.05. Patient receiving 1 L normal saline bolus infusion. Time: 12:45 Reevaluation #3: Patient reports feeling better and breathing has improved. Spouse became frustrated the patient received narcotic pain medications in ED stating patient has history of narcotic overdose and addiction problem. Patient is currently taking T3 total 5 tabs in 24 hour. We talked about skipping next a couple of doses of T3 today since he had received medication here. Plan for repeating lactate in one hr and to reassess. Time: 13:40 Additional Reevaluation(s): 1520-patient was ambulate without short of breath around the nursing viveros. Keeping O2 sat greater than 93% during ambulation and this has increased to 97% upon return to and rest. Consultations Consultation #1: Consulted Dr. Sage with physical findings, vital signs, elevated lactate without source of infection. He agrees this elevation is likely from COPD exacerbation and recommended discharge the patient to home with a short course of steroids Time: 15:00 Vital Signs Vital signs: Vital Signs - 8 hr 05/15/20 11:28 05/15/20 12:23 05/15/20 12:30 Temperature 97.8 F Pulse Rate 91 H 93 H 95 H Respiratory Rate 25 H 24 23 Blood Pressure 187/104 H 180/97 H Pulse Oximetry 96 93 93 05/15/20 12:31 05/15/20 12:33 05/15/20 13:00 Temperature Pulse Rate 95 H 92 H 91 H Respiratory Rate 22 18 21 Blood Pressure 182/103 H Pulse Oximetry 94 94 95 05/15/20 13:30 05/15/20 14:00 05/15/20 14:26 Temperature Pulse Rate 88 82 90 Respiratory Rate 23 20 Blood Pressure Pulse Oximetry 94 94 97 05/15/20 14:55 05/15/20 15:04 05/15/20 15:51 Temperature Pulse Rate 112 H 95 H Respiratory Rate 17 Blood Pressure 194/102 H 199/91 H Pulse Oximetry 93 95 <Karthikeyan Prakash DO - Last Filed: 05/16/20 07:05> Orders Ordered: Discontinued Medications Hydrocodone Bitart/Acetaminophen ([place] 5/325) 1 tab PO NOW ONE Stop: 05/15/20 12:29 Last Admin: 05/15/20 12:35 Dose: 1 tab Documented by: IVANA Albuterol (Ventolin Hfa (Vent/Covid R/O)) 2 puff INH NOW ONE Stop: 05/15/20 12:02 Last Admin: 05/15/20 12:31 Dose: 2 puff Documented by: LEANA Albuterol (Ventolin) 5 mg INH NOW ONE Stop: 05/15/20 12:35 Last Admin: 05/15/20 14:50 Dose: 5 mg Documented by: JOSIAS Furosemide (Lasix) 20 mg IV NOW ONE Stop: 05/15/20 13:31 Last Admin: 05/15/20 13:36 Dose: 20 mg Documented by: WILLY Hydromorphone HCl (Dilaudid) 0.5 mg IV NOW ONE Stop: 05/15/20 13:10 Last Admin: 05/15/20 13:15 Dose: 0.5 mg Documented by: WILLY Sodium Chloride (Normal Saline 0.9%) 1,000 mls @ 1,000 mls/hr IV BOLUS ONE Stop: 05/15/20 12:36 Last Infusion: 05/15/20 14:49 Dose: 0 mls/hr Documented by: Admin: 05/15/20 12:15 Dose: 1,000 mls/hr Documented by: IVANA Ketorolac Tromethamine (Toradol) 15 mg IV NOW ONE Stop: 05/15/20 12:26 Last Admin: 05/15/20 12:34 Dose: 15 mg Documented by: IVANA Methylprednisolone (Solu-Medrol 125 Mg Vial) 125 mg IV NOW ONE Stop: 05/15/20 12:26 Last Admin: 05/15/20 12:34 Dose: 125 mg Documented by: IVANA Vital Signs Vital signs: Vital Signs - 8 hr 05/15/20 11:28 05/15/20 12:23 05/15/20 12:30 Temperature 97.8 F Pulse Rate 91 H 93 H 95 H Respiratory Rate 25 H 24 23 Blood Pressure 187/104 H 180/97 H Pulse Oximetry 96 93 93 05/15/20 12:31 05/15/20 12:33 05/15/20 13:00 Temperature Pulse Rate 95 H 92 H 91 H Respiratory Rate 22 18 21 Blood Pressure 182/103 H Pulse Oximetry 94 94 95 05/15/20 13:30 05/15/20 14:00 05/15/20 14:26 Temperature Pulse Rate 88 82 90 Respiratory Rate 23 20 Blood Pressure Pulse Oximetry 94 94 97 05/15/20 14:55 05/15/20 15:04 05/15/20 15:51 Temperature Pulse Rate 112 H 95 H Respiratory Rate 17 Blood Pressure 194/102 H 199/91 H Pulse Oximetry 93 95 MDM - SOB/Dyspnea <JORDAN Barber - Last Filed: 05/16/20 02:41> Differential Diagnosis Differential diagnosis: Likely acute exacerbation of chronic obstructive airways disease, congestive heart failure, community acquired pneumonia and other (chest contusion, NSTEMI, STEMI, Covid 19, Sepsis) Medical Records Attestation: I reviewed the patient's medical records. Lab Data Attestation: I reviewed the patient's lab results. Result diagrams: 05/15/20 11:40 05/15/20 11:40 Labs: Lab Results 05/15/20 05/15/20 05/15/20 Range/Units 11:40 11:40 11:40 WBC 5.0 (4.5-11.0) X10^3/uL RBC 4.51 (4.5-5.9) X10^6/uL Hgb 13.7 (13.5-17.5) g/dL Hct 41.0 (41-53) % MCV 90.8 (80-100) fL MCH 30.5 (26-34) PG MCHC 33.5 (30-36) % RDW 15.1 H (11.6-14.8) % Plt Count 206 (150-400) X10^3/uL Neut % (Auto) 63.1 (50-75) % Lymph % (Auto) 20.7 L (25-40) % Robertson % (Auto) 9.5 (3-14) % Eos % (Auto) 5.5 H (2-4) % Baso % (Auto) 1.2 (0-2) % Neut # (Auto) 3100 (7865-0029) /uL Lymph # (Auto) 1000 L (2775-6053) /uL Robertson # (Auto) 500 (0-900) /uL Eos # (Auto) 300 (0-450) /uL Baso # (Auto) 100 (0-100) /uL PT 11.0 (10.1-12.7) SECONDS INR 1.0 (0.9-1.3) APTT 30 D (26.4-36.2) SECONDS Sodium (137-145) mmol/L Potassium (3.4-5.1) mmol/L Chloride (98-107) mmol/L Carbon Dioxide (22-32) mmol/L BUN (9-20) mg/dL Creatinine (0.66-1.25) mg/dL Estimated GFR (>60) mL/min BUN/Creatinine Ratio (6-22) Glucose (80-110) mg/dL Lactate (0.7-2.1) mmol/L Calcium (8.4-10.2) mg/dL Total Bilirubin (0.2-1.3) mg/dL AST (17-59) IU/L ALT (<50) IU/L Alkaline Phosphatase (38-126) U/L Total Creatine Kinase (55-170) U/L CK-MB (CK-2) (<2.37) ng/mL CK-MB (CK-2) Rel Index (1.5-5.0) % Troponin I (0.01-0.034) ng/mL NT-Pro-B Natriuret Pep (<450) pg/mL Total Protein (6.3-8.2) g/dL Albumin (3.5-5.0) g/dL Globulin (1.7-4.1) g/dL Albumin/Globulin Ratio (1.0-2.8) Lipase (23-300) U/L Procalcitonin 0.05 (<0.5) ng/mL Urine RBC (0-5/HPF) Urine WBC (0-5/HPF) Urine Bacteria (None) Ur Culture Indicated? COVID-19 PCR (Negative) 05/15/20 05/15/20 05/15/20 Range/Units 11:40 11:40 11:57 WBC (4.5-11.0) X10^3/uL RBC (4.5-5.9) X10^6/uL Hgb (13.5-17.5) g/dL Hct (41-53) % MCV (80-100) fL MCH (26-34) PG MCHC (30-36) % RDW (11.6-14.8) % Plt Count (150-400) X10^3/uL Neut % (Auto) (50-75) % Lymph % (Auto) (25-40) % Robertson % (Auto) (3-14) % Eos % (Auto) (2-4) % Baso % (Auto) (0-2) % Neut # (Auto) (1308-6738) /uL Lymph # (Auto) (4797-3818) /uL Robertson # (Auto) (0-900) /uL Eos # (Auto) (0-450) /uL Baso # (Auto) (0-100) /uL PT (10.1-12.7) SECONDS INR (0.9-1.3) APTT (26.4-36.2) SECONDS Sodium 135 L (137-145) mmol/L Potassium 4.5 (3.4-5.1) mmol/L Chloride 100 (98-107) mmol/L Carbon Dioxide 26 (22-32) mmol/L BUN 10 (9-20) mg/dL Creatinine 0.72 (0.66-1.25) mg/dL Estimated GFR > 60.0 (>60) mL/min BUN/Creatinine Ratio 13.9 (6-22) Glucose 352 H (80-110) mg/dL Lactate 4.1 H* (0.7-2.1) mmol/L Calcium 9.1 (8.4-10.2) mg/dL Total Bilirubin 0.5 (0.2-1.3) mg/dL AST 49 (17-59) IU/L ALT 53 H (<50) IU/L Alkaline Phosphatase 134 H (38-126) U/L Total Creatine Kinase (55-170) U/L CK-MB (CK-2) (<2.37) ng/mL CK-MB (CK-2) Rel Index (1.5-5.0) % Troponin I (0.01-0.034) ng/mL NT-Pro-B Natriuret Pep (<450) pg/mL Total Protein 7.1 (6.3-8.2) g/dL Albumin 4.2 (3.5-5.0) g/dL Globulin 2.9 (1.7-4.1) g/dL Albumin/Globulin Ratio 1.4 (1.0-2.8) Lipase 68 (23-300) U/L Procalcitonin (<0.5) ng/mL Urine RBC (0-5/HPF) Urine WBC (0-5/HPF) Urine Bacteria (None) Ur Culture Indicated? COVID-19 PCR Negative (Negative) 05/15/20 05/15/20 05/15/20 Range/Units 11:57 12:00 13:15 WBC (4.5-11.0) X10^3/uL RBC (4.5-5.9) X10^6/uL Hgb (13.5-17.5) g/dL Hct (41-53) % MCV (80-100) fL MCH (26-34) PG MCHC (30-36) % RDW (11.6-14.8) % Plt Count (150-400) X10^3/uL Neut % (Auto) (50-75) % Lymph % (Auto) (25-40) % Robertson % (Auto) (3-14) % Eos % (Auto) (2-4) % Baso % (Auto) (0-2) % Neut # (Auto) (9237-5724) /uL Lymph # (Auto) (7043-8469) /uL Robertson # (Auto) (0-900) /uL Eos # (Auto) (0-450) /uL Baso # (Auto) (0-100) /uL PT (10.1-12.7) SECONDS INR (0.9-1.3) APTT (26.4-36.2) SECONDS Sodium (137-145) mmol/L Potassium (3.4-5.1) mmol/L Chloride (98-107) mmol/L Carbon Dioxide (22-32) mmol/L BUN (9-20) mg/dL Creatinine (0.66-1.25) mg/dL Estimated GFR (>60) mL/min BUN/Creatinine Ratio (6-22) Glucose (80-110) mg/dL Lactate 3.7 H (0.7-2.1) mmol/L Calcium (8.4-10.2) mg/dL Total Bilirubin (0.2-1.3) mg/dL AST (17-59) IU/L ALT (<50) IU/L Alkaline Phosphatase (38-126) U/L Total Creatine Kinase 197 H (55-170) U/L CK-MB (CK-2) 3.28 H (<2.37) ng/mL CK-MB (CK-2) Rel Index 1.7 (1.5-5.0) % Troponin I < 0.012 (0.01-0.034) ng/mL NT-Pro-B Natriuret Pep 289 (<450) pg/mL Total Protein (6.3-8.2) g/dL Albumin (3.5-5.0) g/dL Globulin (1.7-4.1) g/dL Albumin/Globulin Ratio (1.0-2.8) Lipase (23-300) U/L Procalcitonin (<0.5) ng/mL Urine RBC None seen (0-5/HPF) Urine WBC None seen (0-5/HPF) Urine Bacteria None seen (None) Ur Culture Indicated? Cult not indicated COVID-19 PCR (Negative) 05/15/20 Range/Units 13:15 WBC (4.5-11.0) X10^3/uL RBC (4.5-5.9) X10^6/uL Hgb (13.5-17.5) g/dL Hct (41-53) % MCV (80-100) fL MCH (26-34) PG MCHC (30-36) % RDW (11.6-14.8) % Plt Count (150-400) X10^3/uL Neut % (Auto) (50-75) % Lymph % (Auto) (25-40) % Robertson % (Auto) (3-14) % Eos % (Auto) (2-4) % Baso % (Auto) (0-2) % Neut # (Auto) (2584-8279) /uL Lymph # (Auto) (1845-6478) /uL Robertson # (Auto) (0-900) /uL Eos # (Auto) (0-450) /uL Baso # (Auto) (0-100) /uL PT (10.1-12.7) SECONDS INR (0.9-1.3) APTT (26.4-36.2) SECONDS Sodium (137-145) mmol/L Potassium (3.4-5.1) mmol/L Chloride (98-107) mmol/L Carbon Dioxide (22-32) mmol/L BUN (9-20) mg/dL Creatinine (0.66-1.25) mg/dL Estimated GFR (>60) mL/min BUN/Creatinine Ratio (6-22) Glucose (80-110) mg/dL Lactate (0.7-2.1) mmol/L Calcium (8.4-10.2) mg/dL Total Bilirubin (0.2-1.3) mg/dL AST (17-59) IU/L ALT (<50) IU/L Alkaline Phosphatase (38-126) U/L Total Creatine Kinase (55-170) U/L CK-MB (CK-2) (<2.37) ng/mL CK-MB (CK-2) Rel Index (1.5-5.0) % Troponin I < 0.012 (0.01-0.034) ng/mL NT-Pro-B Natriuret Pep (<450) pg/mL Total Protein (6.3-8.2) g/dL Albumin (3.5-5.0) g/dL Globulin (1.7-4.1) g/dL Albumin/Globulin Ratio (1.0-2.8) Lipase (23-300) U/L Procalcitonin (<0.5) ng/mL Urine RBC (0-5/HPF) Urine WBC (0-5/HPF) Urine Bacteria (None) Ur Culture Indicated? COVID-19 PCR (Negative) Urine Dip Bedside Urine Glucose 1000 mg/dl Bedside Urine Bilirubin - Negative Bedside Urine Ketone - Negative Urine Specific [place] 1.015 Bedside Urine Occult Blood - Negative Bedside Urine pH 6.0 Bedside Urine Protein - Negative Bedside Urine Urobilinogen - Negative Bedside Urine Nitrite - Negative Bedside Urine Leukocytes - Negative Esterase Imaging Data Chest x-ray: Radiologist's Impression: Karthikeyan Yo 75 M [address] [address] XRay Report Signed Patient: Karthikeyan Yo DMR#: [id number] : 5Acct:[id number] Age/Sex: 75 / MDate of Service: 05/15/20 Loc: ED Accession Number: [id number] Procedure: XR chest 1V Ordering Provider: William Kaplan PROCEDURE: XR CHEST 1V INDICATIONS: suspected sepsis TECHNIQUE: One view of the chest was acquired. COMPARISON: [facility], CR, XR CHEST 2V, 03/05/2020, 7:42. [facility], CR, XR CHEST 1V, 11/24/2019, 11:11. FINDINGS: Surgical changes and devices: Sternotomy wires, presumed prior CABG. Prior cervical fusions partially visualized.. Lungs and pleura: Lungs are chronically mildly abnormal with an interstitial prominence perhaps reflecting a prior smoking history.. No pleural effusions or pneumothorax. Mediastinum: Mediastinal contours appear normal. Heart size is normal. Bones and chest wall: No suspicious bony lesions. Overlying soft tissues appear unremarkable. IMPRESSION: Stable over time with chronic interstitial prominence likely reflecting a prior smoking history. Prior CABG. Prior cervical fusions. No pneumonia found . Dictated by: Damien Medina M.D. on 05/15/2020 at 12:18 Approved by: Damien Medina M.D. on 05/15/2020 at 12:19 ECG Data Attestation: I personally reviewed and interpreted this ECG as follows: Prior ECG tracings: available for review Interpretation: Sinus rhythm with sinus arrhythmia rate at 87. Normal [place]. HI interval 172, QRS duration 86, QT/QTC 394/474. No acute ST changes. Previous EKG shows sinus rhythm with occasional PVC with nonspecific T-wave abnormality MDM Narrative Medical decision making narrative: This is a 75-year-old male who has history of CAD, COPD, Afib, s/p CABG, HTN presents to ED with chief complain of short of breath after he lost nebulizer 2 weeks ago and ran out of lasix for about a week. Patient denies fever, chills, nausea or vomiting. Reports had a syncopal episode about a week ago due to short of breath and dizziness and reports bilateral chest discomfort and right shoulder pain from a fall. Reports leg swelling and weight gain. Patient denies fever, chills. Patient is afebrile, hypertensive with tachypnea and O2 sat at 96% in RA and had difficult time completing a long sentence. Physical exam with expiratory wheezes in bilateral lower lobes. EKG showed sinus rhythm with sinus arrhythmia rate at [address] changes. Chest x-ray indicates chronically in mildly abnormal with and interstitial prominences reflecting a prior smoking history. No pneumonia found and heart size is normal. There is no leukocytosis. Unremarkable CMP except elevated glucose of 352 and elevated lactate of 4.1. Slightly elevated ALT of 53 and alk phosphatase of 134. Negative troponin and mildly elevated total CK of 197 and CK-MB of 3.28 but normal CK-MB index of 3.28. Urine test is not indicating UTI with negative leuks and nitrite. Covid 19 test was negative. proBNP was 289. Procalcitonin was negative. Patient was given 1 liter of NS bolus given elevated lactate and albuterol inhaler prior Covid test came back negative. It is likely patient has short of breath is due to COPD exacerbation. No indications for pneumonia per x-ray test and without leukocytosis, negative procalcitonin. No other indications for infection. Patient was provided with Solu-Medrol 125 mg IV and Neb treatment with Negative Covid test result. Patient was given Lasix 20 mg IV since he had not had Lasix for about a week with bilateral leg swelling. Patient requested multiple times for pain medications and initially he was medicated with [place] 1 tab and Ketolac 15mg IV since allergy to Morphine and Dilaudid. Patient for clinic called for additional pain medications since this was not effective. Patient medicated with 0.5 mg of Dilaudid. Lactate and Troponin were repeated with slightly improved result. Lactate was 3.7 and again negative troponin. He reports feeling improved with short of breath and was able to ambulate around the nursing station to keep O2 sat at 93% in RA which improved to 97% at rest. Dr. Peck consulted with concerns of elevated lactate without sources of infection. This could be from patient's pulmonary condition COPD and was recommended to place patient on a short course of steroids. The patient's spouse visited at bedside before leaving ED and got upset and yelling at the patient, staff and myself that the patient had received narcotic medication. He is currently taking 5 tabs of T3 daily for chronic pain and states the patient has addiction problem and now she is to deal with him at home. The patient also became upset and yells at his to calm down. The spouse yell at the nursing all and storms out the ER stating will wait in the car. Findings were discussed with patient and advised to take steroids for 5 days and to follow-up with primary care physician next couple of days for short of breath, elevated blood sugar, and hypertension. Side effects of steroids di scussed with the patient. Advised to skip next a couple of doses for T3 intakes. Return precautions were discussed with patient he verbalized understanding in agreement with the treatment plan. <Karthikeyan Prakash, DO - Last Filed: 05/16/20 07:05> Lab Data Labs: Lab Results 05/15/20 05/15/20 05/15/20 Range/Units 11:40 11:40 11:40 WBC 5.0 (4.5-11.0) X10^3/uL RBC 4.51 (4.5-5.9) X10^6/uL Hgb 13.7 (13.5-17.5) g/dL Hct 41.0 (41-53) % MCV 90.8 (80-100) fL MCH 30.5 (26-34) PG MCHC 33.5 (30-36) % RDW 15.1 H (11.6-14.8) % Plt Count 206 (150-400) X10^3/uL Neut % (Auto) 63.1 (50-75) % Lymph % (Auto) 20.7 L (25-40) % Robertson % (Auto) 9.5 (3-14) % Eos % (Auto) 5.5 H (2-4) % Baso % (Auto) 1.2 (0-2) % Neut # (Auto) 3100 (6042-6248) /uL Lymph # (Auto) 1000 L (1140-8071) /uL Robertson # (Auto) 500 (0-900) /uL Eos # (Auto) 300 (0-450) /uL Baso # (Auto) 100 (0-100) /uL PT 11.0 (10.1-12.7) SECONDS INR 1.0 (0.9-1.3) APTT 30 D (26.4-36.2) SECONDS Sodium (137-145) mmol/L Potassium (3.4-5.1) mmol/L Chloride (98-107) mmol/L Carbon Dioxide (22-32) mmol/L BUN (9-20) mg/dL Creatinine (0.66-1.25) mg/dL Estimated GFR (>60) mL/min BUN/Creatinine Ratio (6-22) Glucose (80-110) mg/dL Lactate (0.7-2.1) mmol/L Calcium (8.4-10.2) mg/dL Total Bilirubin (0.2-1.3) mg/dL AST (17-59) IU/L ALT (<50) IU/L Alkaline Phosphatase (38-126) U/L Total Creatine Kinase (55-170) U/L CK-MB (CK-2) (<2.37) ng/mL CK-MB (CK-2) Rel Index (1.5-5.0) % Troponin I (0.01-0.034) ng/mL NT-Pro-B Natriuret Pep (<450) pg/mL Total Protein (6.3-8.2) g/dL Albumin (3.5-5.0) g/dL Globulin (1.7-4.1) g/dL Albumin/Globulin Ratio (1.0-2.8) Lipase (23-300) U/L Procalcitonin 0.05 (<0.5) ng/mL Urine RBC (0-5/HPF) Urine WBC (0-5/HPF) Urine Bacteria (None) Ur Culture Indicated? COVID-19 PCR (Negative) 05/15/20 05/15/20 05/15/20 Range/Units 11:40 11:40 11:57 WBC (4.5-11.0) X10^3/uL RBC (4.5-5.9) X10^6/uL Hgb (13.5-17.5) g/dL Hct (41-53) % MCV (80-100) fL MCH (26-34) PG MCHC (30-36) % RDW (11.6-14.8) % Plt Count (150-400) X10^3/uL Neut % (Auto) (50-75) % Lymph % (Auto) (25-40) % Robertson % (Auto) (3-14) % Eos % (Auto) (2-4) % Baso % (Auto) (0-2) % Neut # (Auto) (6505-7452) /uL Lymph # (Auto) (0205-2322) /uL Robertson # (Auto) (0-900) /uL Eos # (Auto) (0-450) /uL Baso # (Auto) (0-100) /uL PT (10.1-12.7) SECONDS INR (0.9-1.3) APTT (26.4-36.2) SECONDS Sodium 135 L (137-145) mmol/L Potassium 4.5 (3.4-5.1) mmol/L Chloride 100 (98-107) mmol/L Carbon Dioxide 26 (22-32) mmol/L BUN 10 (9-20) mg/dL Creatinine 0.72 (0.66-1.25) mg/dL Estimated GFR > 60.0 (>60) mL/min BUN/Creatinine Ratio 13.9 (6-22) Glucose 352 H (80-110) mg/dL Lactate 4.1 H* (0.7-2.1) mmol/L Calcium 9.1 (8.4-10.2) mg/dL Total Bilirubin 0.5 (0.2-1.3) mg/dL AST 49 (17-59) IU/L ALT 53 H (<50) IU/L Alkaline Phosphatase 134 H (38-126) U/L Total Creatine Kinase (55-170) U/L CK-MB (CK-2) (<2.37) ng/mL CK-MB (CK-2) Rel Index (1.5-5.0) % Troponin I (0.01-0.034) ng/mL NT-Pro-B Natriuret Pep (<450) pg/mL Total Protein 7.1 (6.3-8.2) g/dL Albumin 4.2 (3.5-5.0) g/dL Globulin 2.9 (1.7-4.1) g/dL Albumin/Globulin Ratio 1.4 (1.0-2.8) Lipase 68 (23-300) U/L Procalcitonin (<0.5) ng/mL Urine RBC (0-5/HPF) Urine WBC (0-5/HPF) Urine Bacteria (None) Ur Culture Indicated? COVID-19 PCR Negative (Negative) 05/15/20 05/15/20 05/15/20 Range/Units 11:57 12:00 13:15 WBC (4.5-11.0) X10^3/uL RBC (4.5-5.9) X10^6/uL Hgb (13.5-17.5) g/dL Hct (41-53) % MCV (80-100) fL MCH (26-34) PG MCHC (30-36) % RDW (11.6-14.8) % Plt Count (150-400) X10^3/uL Neut % (Auto) (50-75) % Lymph % (Auto) (25-40) % Robertson % (Auto) (3-14) % Eos % (Auto) (2-4) % Baso % (Auto) (0-2) % Neut # (Auto) (5508-7432) /uL Lymph # (Auto) (7547-3286) /uL Robertson # (Auto) (0-900) /uL Eos # (Auto) (0-450) /uL Baso # (Auto) (0-100) /uL PT (10.1-12.7) SECONDS INR (0.9-1.3) APTT (26.4-36.2) SECONDS Sodium (137-145) mmol/L Potassium (3.4-5.1) mmol/L Chloride (98-107) mmol/L Carbon Dioxide (22-32) mmol/L BUN (9-20) mg/dL Creatinine (0.66-1.25) mg/dL Estimated GFR (>60) mL/min BUN/Creatinine Ratio (6-22) Glucose (80-110) mg/dL Lactate 3.7 H (0.7-2.1) mmol/L Calcium (8.4-10.2) mg/dL Total Bilirubin (0.2-1.3) mg/dL AST (17-59) IU/L ALT (<50) IU/L Alkaline Phosphatase (38-126) U/L Total Creatine Kinase 197 H (55-170) U/L CK-MB (CK-2) 3.28 H (<2.37) ng/mL CK-MB (CK-2) Rel Index 1.7 (1.5-5.0) % Troponin I < 0.012 (0.01-0.034) ng/mL NT-Pro-B Natriuret Pep 289 (<450) pg/mL Total Protein (6.3-8.2) g/dL Albumin (3.5-5.0) g/dL Globulin (1.7-4.1) g/dL Albumin/Globulin Ratio (1.0-2.8) Lipase (23-300) U/L Procalcitonin (<0.5) ng/mL Urine RBC None seen (0-5/HPF) Urine WBC None seen (0-5/HPF) Urine Bacteria None seen (None) Ur Culture Indicated? Cult not indicated COVID-19 PCR (Negative) 05/15/20 Range/Units 13:15 WBC (4.5-11.0) X10^3/uL RBC (4.5-5.9) X10^6/uL Hgb (13.5-17.5) g/dL Hct (41-53) % MCV (80-100) fL MCH (26-34) PG MCHC (30-36) % RDW (11.6-14.8) % Plt Count (150-400) X10^3/uL Neut % (Auto) (50-75) % Lymph % (Auto) (25-40) % Robertson % (Auto) (3-14) % Eos % (Auto) (2-4) % Baso % (Auto) (0-2) % Neut # (Auto) (5283-2660) /uL Lymph # (Auto) (4997-6516) /uL Robertson # (Auto) (0-900) /uL Eos # (Auto) (0-450) /uL Baso # (Auto) (0-100) /uL PT (10.1-12.7) SECONDS INR (0.9-1.3) APTT (26.4-36.2) SECONDS Sodium (137-145) mmol/L Potassium (3.4-5.1) mmol/L Chloride (98-107) mmol/L Carbon Dioxide (22-32) mmol/L BUN (9-20) mg/dL Creatinine (0.66-1.25) mg/dL Estimated GFR (>60) mL/min BUN/Creatinine Ratio (6-22) Glucose (80-110) mg/dL Lactate (0.7-2.1) mmol/L Calcium (8.4-10.2) mg/dL Total Bilirubin (0.2-1.3) mg/dL AST (17-59) IU/L ALT (<50) IU/L Alkaline Phosphatase (38-126) U/L Total Creatine Kinase (55-170) U/L CK-MB (CK-2) (<2.37) ng/mL CK-MB (CK-2) Rel Index (1.5-5.0) % Troponin I < 0.012 (0.01-0.034) ng/mL NT-Pro-B Natriuret Pep (<450) pg/mL Total Protein (6.3-8.2) g/dL Albumin (3.5-5.0) g/dL Globulin (1.7-4.1) g/dL Albumin/Globulin Ratio (1.0-2.8) Lipase (23-300) U/L Procalcitonin (<0.5) ng/mL Urine RBC (0-5/HPF) Urine WBC (0-5/HPF) Urine Bacteria (None) Ur Culture Indicated? COVID-19 PCR (Negative) Urine Dip Bedside Urine Glucose 1000 mg/dl Bedside Urine Bilirubin - Negative Bedside Urine Ketone - Negative Urine Specific [place] 1.015 Bedside Urine Occult Blood - Negative Bedside Urine pH 6.0 Bedside Urine Protein - Negative Bedside Urine Urobilinogen - Negative Bedside Urine Nitrite - Negative Bedside Urine Leukocytes - Negative Esterase Discharge Plan Departure Patient Disposition: Home Clinical Impression: COPD exacerbation, Costochondritis Discharge Date/Time: 05/15/20 15:54 Instructions: DI for Chronic Obstructive Pulmonary Disease, DI for Costochondritis Activity Restrictions/Additional Instructions: You have been diagnosed with [COPD exacerbation and costal chondritis from a fall. No indications of infection or pneumonia today. Cardiac enzymes are negative. Covid test was negative. Elevated lactate which likely from COPD. You were medicated with IV Solu-Medrol, neb treatment, Lasix 20mg IV, IV fluid, Pain medications-Toradol, Hydrocodone and Dilaudid 0.5 mg while in ED. ]. What to do: *Take your medications as directed. Please continue to take Lasix. Use nebulizer treatment and inhalers as needed for your symptoms. You can use [id number] Tylenol and or Motrin as needed and T3 for severe pain. Please take prednisone 50 mg daily starting tomorrow for next 5 days for COPD exacerbation. *Follow up with your primary care provider in 2-3 days, call for an appointment. Let them know you were seen in the ED and that we asked you to be seen in follow up. *Return to ED if you have any new, worsening, or concerning symptoms, such as chest pain, breathing difficulty, fever, unable to tolerate fluids, dizziness, or any acute concerns. Prescriptions: New prednisone 50 mg tablet 50 mg PO DAILY 5 Days RF: 0 No Action multivitamin [Multiple Vitamins] 1 EACH tablet 1 tab PO DAILY Qty: 0 RF: 0 aspirin 325 MG tablet,delayed release (DR/EC) 325 mg PO BEDTIME Qty: 0 RF: 0 fluticasone propionate 16 GM spray,suspension 1 spray Intranasal DAILY Qty: 0 RF: 0 acetaminophen-codeine 300-30 mg tablet 1 - 2 tab PO Q6H MDD 5 PRN (Reason: pain) RF: 0 furosemide 40 mg Tablet 40 mg PO DAILY RF: 0 clonidine HCl 0.1 mg tablet 0.1 - 0.2 mg PO Q8H PRN (Reason: withdrawal symptoms) RF: 0 ferrous sulfate 325 mg (65 mg iron) tablet,delayed release (DR/EC) 325 mg PO DAILY RF: 0 ipratropium bromide 0.02 % solution 2.5 ml inhalation Q6H RF: 0 Qvar RediHaler 40 mcg/actuation HFA aerosol breath activated 2 inh INHALATION BID RF: 0 ipratropium-albuterol 0.5 mg-3 mg(2.5 mg base)/3 mL solution for nebulization 3 ml INHALATION Q4-6H PRN (Reason: shortness of breath or wheezing) Qty: 90 RF: 1 trazodone 100 mg tablet 300 tab PO BEDTIME RF: 0 levalbuterol tartrate [Xopenex HFA] 45 mcg/actuation HFA aerosol inhaler 1 puff INHALATION Q4-6H PRN (Reason: shortness of breath or wheezing) Qty: 15 RF: 0 metoprolol tartrate 100 mg tablet 100 mg PO BID RF: 0 levalbuterol HCl 1.25 mg/3 mL solution for nebulization 3 ml Inhalation Q6H PRN (Reason: Shortness Of Breath) RF: 0 Zyrtec 10 mg Capsule 10 mg PO DAILY RF: 0 docusate sodium [DOK] 100 mg Capsule 100 mg PO BID PRN (Reason: constipation) Qty: 30 RF: 0 cyclobenzaprine 10 mg tablet 10 mg PO TID PRN (Reason: muscle spasm) Qty: 14 RF: 0 Referrals: Binu Ac MD [Primary Care Provider] - <Karthikeyan Prakash DO - Last Filed: 05/16/20 07:05> Cosign ED Attending Cosignature Attestation: Dr Prakash Co-Sign Statement: I was available for consultation during this patient's emergency department visit. This chart is signed by myself for administrative purposes only. I did not have direct contact with this patient during this visit. They were seen independently by the APC.
[2020-05-15 12:30] LABS: Culture Indicated Urine Cult Not Indicated
[2020-05-15] MEDS: ALBUTEROL HFA 200 PUFF/18 GM INH (COVID POS/VENT PTS) INH (12:31)
[2020-05-15] MEDS: methylPREDNISolone 125 MG/2 ML VIAL IV (12:34)
[2020-05-15] MEDS: KETOROLAC 60 MG/2 ML VIAL 15 MG IV (12:34)
[2020-05-15] MEDS: HYDROCODONE/ACET 5/325 TABLET 1 TAB PO (12:35)
[2020-05-15 12:54] LABS: Procalcitonin 0.05 ng/mL (<0.5)
[2020-05-15 12:57] LABS: Creatine Kinase 197 U/L (55-170)
[2020-05-15 13:10] LABS: NT-proBNP (BNP-Adult 18+) 289 pg/mL (<450); Troponin I < 0.012 ng/mL (0.01-0.034)
--- NOTE | 2020-05-15 13:10 | PC.NURSE ---
Patient sessions clerk snyder multiples times for pain management. Discussed with patient allergies. Patient repeatedly denies allergies to morphine or dilaudid. Discussed with provider.
[2020-05-15 13:12] LABS: CKMB % Relative Index 1.7 % (1.5-5.0); Creatine Kinase MB 3.28 ng/mL (<2.37)
[2020-05-15] MEDS: HYDROMORPHONE 0.5 MG INJ IV (13:15)
[2020-05-15] MEDS: FUROSEMIDE 40 MG/4 ML VIAL 20 MG IV (13:36)
--- NOTE | 2020-05-15 13:42 | PC.NURSE ---
Patient came into department, very concerned about the fact that the patient received narcotics. Patient reports he has a long history of narcotic abuse and addiction. Provider and staff discussed current situation with and patient.
[2020-05-15 13:48] LABS: Reflexed Lactate in 2 Hours Y
[2020-05-15 14:05] LABS: Lactate 2HR (Lactic Acid Rflx) 3.7 mmol/L (0.7-2.1)
[2020-05-15] MEDS: ALBUTEROL 2.5 MG/3 ML NEB (ADULT) 5 MG INH (14:50)
[2020-05-15 15:09] LABS: Troponin I < 0.012 ng/mL (0.01-0.034)
--- NOTE | 2020-05-15 15:20 | PC.NURSE ---
pt continues to not keep cardiac leads on. pt asking for bandaide for his arm, pt picked a scab off of his arm. pt's curtain and door opened for observation due to pt's inability to follow recommendations.
--- NOTE | 2020-05-15 15:26 | PC.NURSE ---
pt's spouse returns. found pt to have pulled out his own iv, blood on the floor. did not notify nurse. pt independently got up and obtained cleaning wipes located in room to contain bleeding. discussed the inappropriate use of chemical cleaning wipes. pt verbalized understanding. pt's angry raising voice states this is what happens when he is given high powered pain medications, begins pointing fingers at staff. stands up states no it's not it got caught and ripped out. pt's again repeats same statement. provider comes into room and updates pt and , pt will be discharged soon. states in angry voice now i have to deal with him like this all night, begins to leave, and raises voice states ill be in the car.
--- NOTE | 2020-05-15 16:55 | PC.NURSE ---
prescription of prednisone 50mg tablets for 5 days called into [facility]. Pharmacy verified by patient via phone
== END 2020-05-15 15:54 | disposition home or self-care (01) ==
PROVIDERS: Emergency Provider Nurse Practitioner Family; PCP Internal Medicine
DX: J44.1 Chronic obstructive pulmonary disease with (acute) exacerbation (principal); M94.0 Chondrocostal junction syndrome [Tietze]; R42 Dizziness and giddiness; R55 Syncope and collapse; R07.89 Other chest pain
CPT/HCPCS: 36415; 71045; 80053; 81003; 81015; 82550; 82553; 83605; 83690; 83880; 84145; 84484; 85025; 85610; 85730; 87040; 87635; 93005; 94640; 96361; 96374; 96375; 99284; 99285; A9270; J1170; J1885; J1940; J2930; J7613

== ENCOUNTER 2020-07-19 08:37 | Emergency (ER) | payer OTHER, SELFPAY ==
[2019-05-25 19:29] VITALS: BMI 30.9
[2020-07-19] VITALS (7 sets, daily range): BP systolic 145–190; BP diastolic 82–115; PULSE 56–106; RESP 20; TEMP 36.7; O2SAT 93–96; BMI 30.5
--- NOTE | 2020-07-19 08:52 | ED.GENADULT ---
HPI - General Adult General Chief complaint: Diabetic Problem Stated complaint: diabetes/363 blood sugar/getting worse Time Seen by Provider: 07/19/20 08:39 Source: patient and family () Mode of arrival: Ambulatory Limitations: no limitations History of Present Illness HPI narrative: Patient is a 75-year-old male was recently seen in a outside facility for not feeling well and breathing issues. He does have a history of COPD. It was found at this outside facility that he had an elevated blood sugar in the 300s. He followed up with his primary doctor yesterday started him on metformin. He states that last evening he continued to have elevated blood sugars despite this medication. He also ran down of his Xopenex. Is having breathing issues. And again overall states that he generally does not feel very well. Related Data Home Medications Medication Instructions Recorded Confirmed multivitamin [Multiple Vitamins] 1 tab PO DAILY #0 12/21/16 05/25/19 aspirin 325 mg PO BEDTIME #0 11/03/17 05/25/19 fluticasone propionate 1 spray INTRANASAL DAILY #0 11/03/17 05/25/19 trazodone 300 tab PO BEDTIME 12/10/17 10/20/19 levalbuterol HCl 3 ml INHALATION Q6H PRN 10/17/18 10/20/19 metoprolol tartrate 100 mg PO BID 10/17/18 05/25/19 Zyrtec 10 mg PO DAILY 05/23/19 05/25/19 acetaminophen-codeine 1 - 2 tab PO Q6H PRN MDD 5 10/20/19 10/20/19 beclomethasone dipropionate [Qvar 2 inh INHALATION BID 10/20/19 10/20/19 RediHaler] clonidine HCl 0.1 - 0.2 mg PO Q8H PRN 10/20/19 10/20/19 ferrous sulfate 325 mg PO DAILY 10/20/19 furosemide 40 mg PO DAILY 10/20/19 10/20/19 ipratropium bromide 2.5 ml INHALATION Q6H 10/20/19 Previous Rx's Medication Instructions Recorded levalbuterol tartrate [Xopenex HFA] 1 puff INHALATION Q4-6H PRN #15 06/23/18 gram docusate sodium [DOK] 100 mg PO BID PRN #30 cap 05/28/19 ipratropium-albuterol 3 ml INHALATION Q4-6H PRN #90 ml 10/20/19 cyclobenzaprine 10 mg PO TID PRN #14 tab 02/12/20 Allergies Allergy/AdvReac Type Severity Reaction Status Date / Time celecoxib [CELECOXIB] Allergy Mild SWELLING Verified 07/19/20 09:00 latex [LATEX] Allergy Mild RASH Verified 07/19/20 09:00 W/EXTENDED EXPOSURE Sulfa (Sulfonamide Allergy Mild RASH Verified 07/19/20 09:00 Antibiotics) [SULFA (SULFONAMIDE ANTIBIOTICS)] varenicline [VARENICLINE] AdvReac Severe Paranoia Verified 07/19/20 09:00 buprenorphine [BUPRENORPHINE] AdvReac Mild NAUSEA, Verified 07/19/20 09:00 DIZZINESS hyoscyamine [HYOSCYAMINE] AdvReac Mild LEG Verified 07/19/20 09:00 JERKING, ANXIETY, NAUSEA W/I MINUTES Kubzxil-Ijw-Kzj Reductase AdvReac Mild WEAK Verified 07/19/20 09:00 Inhibitor MUSCLES [[id number] REDUCTASE INHIBITOR] diazepam [From Valium] AdvReac Confusion Verified 07/19/20 09:00 morphine AdvReac Confusion Verified 07/19/20 09:00 Review of Systems Constitutional Constitutional: Reports fatigue, Denies fever(s) and Reports malaise Cardiovascular Cardiovascular: Denies chest pain and Reports dyspnea Respiratory Respiratory: Reports cough and Reports dyspnea Gastrointestinal Gastrointestinal: Denies abdominal pain, Denies nausea and Denies vomiting Genitourinary Genitourinary: Denies dysuria Genitourinary: Denies dysuria Musculoskeletal Musculoskeletal: Denies arthralgias, Denies myalgias and Reports tingling Integumentary/Breasts Skin/Breast: Denies rash Neurologic Neurologic: Reports tingling Endocrine Endocrine: Reports fatigue Hematologic/Lymphatic Hematologic/Lymphatic: Denies easy bleeding and Denies easy bruising Patient History Medical History Achalasia Anginal pain Asthma Atrial fibrillation Cervical spinal stenosis Chronic obstructive pulmonary disease (10/23/16) COPD (chronic obstructive pulmonary disease) Coronary artery disease History of aortic dissection (~08/2007) Hypertension Ischemic cardiomyopathy Narcotic dependence Neck pain, chronic Ventricular bigeminy Surgical History H/O arthroscopic knee surgery (11/15/17) History of arthroplasty of right knee History of bilateral total hip arthroplasty History of cardiac cath (~03/2014) History of esophageal surgery History of incision and drainage (~2016) History of prior ablation treatment (~03/2017) History of surgery Hx of cholecystectomy Hx of hernia repair Hx of sinus surgery S/P CABG x 3 (~08/2007) S/P cervical spinal fusion S/P lumbar fusion Family History Mother Stroke Social History household members: spouse Smoking Status: Former smoker alcohol intake: current substance use type: does not use Smoking Status: Former smoker alcohol intake frequency: a few times a week Substance Use Type: does not use Exam Initial Vital Signs Initial Vital Signs: Vital Signs Temperature 98.0 F 07/19/20 08:54 Pulse Rate 92 H 07/19/20 08:54 Respiratory Rate 20 07/19/20 08:54 Blood Pressure 190/98 H 07/19/20 08:54 Pulse Oximetry 95 07/19/20 08:54 Const Limitations: mental status not altered HENMT Head: normal to inspection Resp Effort & Inspection: not labored Auscultation: rhonchi and wheezes Cardio Rate: regular rate Rhythm: regular rhythm GI Inspection: non-distended Palpation: soft Skin Lesions: no lesions Rashes: no rashes Neuro General: patient alert, patient awake and patient oriented x3 Cognition: normal cognition Speech: speech normal Extrem General: capillary refill normal Psych Appearance: grossly normal and well kempt Course Orders Ordered: ED Orders 07/19/20 08:50 COVID19 Stat Complete Blood Count AUTO DIFF Stat Comprehensive Metabolic Panel Stat Ethanol (ETOH) Stat Ketones (Beta-Hydroxybutyrate) Stat Lipase Stat Magnesium Stat NT-proBNP (BNP-Adult 18+) Stat Phosphorous Stat Procalcitonin Stat Troponin & CK Cardiac Panel Stat 07/19/20 08:51 XR chest 1V Stat EKG-12 Lead Stat 07/19/20 08:52 RT Consult Eval and Treat Now Discontinued Medications Acetaminophen (Acetaminophen 325 Mg Tablet) 975 mg PO NOW ONE Stop: 07/19/20 10:26 Last Admin: 12/11/20 10:29 Dose: 975 mg Documented by: DWIGHT Levalbuterol HCl (Levalbuterol Hfa 200 Puff Inh) 2 puff INH NOW ONE Stop: 07/19/20 08:53 Last Admin: 07/19/20 09:05 Dose: 2 puff Documented by: JOSIAS Vital Signs Vital signs: Vital Signs - 8 hr 07/19/20 08:54 07/19/20 10:08 07/19/20 10:10 Temperature 98.0 F Pulse Rate 92 H 56 L 95 H Respiratory Rate 20 Blood Pressure 190/98 H 145/87 H Pulse Oximetry 95 95 94 07/19/20 10:30 07/19/20 10:31 07/19/20 10:59 Temperature Pulse Rate 94 H 93 H 106 H Respiratory Rate Blood Pressure 171/115 H 174/82 H Pulse Oximetry 93 94 95 07/19/20 11:00 Temperature Pulse Rate 102 H Respiratory Rate Blood Pressure Pulse Oximetry 96 Medical Decision Making Lab Data Lab results reviewed: Yes I reviewed the patient's lab results. Result diagrams: 07/19/20 08:50 07/19/20 08:50 Labs: Lab Results 07/19/20 07/19/20 07/19/20 Range/Units 08:50 08:50 08:50 WBC 5.6 (4.5-11.0) X10^3/uL RBC 4.65 (4.5-5.9) X10^6/uL Hgb 13.9 (13.5-17.5) g/dL Hct 41.1 (41-53) % MCV 88.3 (80-100) fL MCH 29.8 (26-34) PG MCHC 33.7 (30-36) % RDW 13.3 (11.6-14.8) % Plt Count 264 (150-400) X10^3/uL Neut % (Auto) 72.1 (50-75) % Lymph % (Auto) 16.0 L (25-40) % [place] % (Auto) 9.7 (3-14) % Eos % (Auto) 1.3 L (2-4) % Baso % (Auto) 0.9 (0-2) % Neut # (Auto) 4000 (7365-0590) /uL Lymph # (Auto) 900 L (7730-9601) /uL [place] # (Auto) 500 (0-900) /uL Eos # (Auto) 100 (0-450) /uL Baso # (Auto) 0 (0-100) /uL Sodium 133 L (137-145) mmol/L Potassium 4.8 (3.4-5.1) mmol/L Chloride 101 (98-107) mmol/L Carbon Dioxide 27 (22-32) mmol/L BUN 14 (9-20) mg/dL Creatinine 0.56 L (0.66-1.25) mg/dL Estimated GFR > 60.0 (>60) mL/min BUN/Creatinine Ratio 25.0 H (6-22) Glucose 276 H (80-110) mg/dL Calcium 9.3 (8.4-10.2) mg/dL Phosphorus 3.2 (2.3-3.7) mg/dL Magnesium 1.9 (1.6-2.3) mg/dL Total Bilirubin 0.9 (0.2-1.3) mg/dL AST 48 (17-59) IU/L ALT 42 (<50) IU/L Alkaline Phosphatase 98 (38-126) U/L Total Creatine Kinase 208 H (55-170) U/L CK-MB (CK-2) 2.75 H (<2.37) ng/mL CK-MB (CK-2) Rel Index 1.3 L (1.5-5.0) % Troponin I < 0.012 (0.01-0.034) ng/mL NT-Pro-B Natriuret Pep 258 (<450) pg/mL Total Protein 7.4 (6.3-8.2) g/dL Albumin 4.3 (3.5-5.0) g/dL Globulin 3.1 (1.7-4.1) g/dL Albumin/Globulin Ratio 1.4 (1.0-2.8) Lipase 83 (23-300) U/L Procalcitonin (<0.5) ng/mL Ethyl Alcohol ( - 10) mg/dL Ketones 0.12 (<0.27) mmol/L COVID-19 PCR (Negative) 07/19/20 07/19/20 07/19/20 Range/Units 08:50 08:50 08:50 WBC (4.5-11.0) X10^3/uL RBC (4.5-5.9) X10^6/uL Hgb (13.5-17.5) g/dL Hct (41-53) % MCV (80-100) fL MCH (26-34) PG MCHC (30-36) % RDW (11.6-14.8) % Plt Count (150-400) X10^3/uL Neut % (Auto) (50-75) % Lymph % (Auto) (25-40) % [place] % (Auto) (3-14) % Eos % (Auto) (2-4) % Baso % (Auto) (0-2) % Neut # (Auto) (9446-6830) /uL Lymph # (Auto) (2298-4232) /uL [place] # (Auto) (0-900) /uL Eos # (Auto) (0-450) /uL Baso # (Auto) (0-100) /uL Sodium (137-145) mmol/L Potassium (3.4-5.1) mmol/L Chloride (98-107) mmol/L Carbon Dioxide (22-32) mmol/L BUN (9-20) mg/dL Creatinine (0.66-1.25) mg/dL Estimated GFR (>60) mL/min BUN/Creatinine Ratio (6-22) Glucose (80-110) mg/dL Calcium (8.4-10.2) mg/dL Phosphorus (2.3-3.7) mg/dL Magnesium (1.6-2.3) mg/dL Total Bilirubin (0.2-1.3) mg/dL AST (17-59) IU/L ALT (<50) IU/L Alkaline Phosphatase (38-126) U/L Total Creatine Kinase (55-170) U/L CK-MB (CK-2) (<2.37) ng/mL CK-MB (CK-2) Rel Index (1.5-5.0) % Troponin I (0.01-0.034) ng/mL NT-Pro-B Natriuret Pep (<450) pg/mL Total Protein (6.3-8.2) g/dL Albumin (3.5-5.0) g/dL Globulin (1.7-4.1) g/dL Albumin/Globulin Ratio (1.0-2.8) Lipase (23-300) U/L Procalcitonin 0.10 (<0.5) ng/mL Ethyl Alcohol < 10 ( - 10) mg/dL Ketones (<0.27) mmol/L COVID-19 PCR Negative (Negative) Point of Care Testing Glucose POC 261 Point of care testing: Point of Care Testing Glucose POC 261 Imaging Data Chest x-ray: Radiologist's Impression: [address] [id number] ReportSigned Patient: Karthikeyan Yo DMR#: [id number]: 5Acct:[id number]/Sex: 75 / MDate of Service: 07/19/20Loc: EDAccession Number: [id number] Procedure: XR chest 1V Ordering Provider: Karthikeyan Prakash D.O. PROCEDURE: XR CHEST 1V INDICATIONS: Shortness of breath TECHNIQUE: One view of the chest was acquired. COMPARISON: [facility], , XR CHEST 1V, 05/15/2020, 11:49. FINDINGS: Surgical changes and devices: Fusion hardware in lower cervical spine is again seen. Median sternotomy wires are also noted. Lungs and pleura: Lungs are clear. No pleural effusions or pneumothorax. Mediastinum: Mediastinal contours appear normal. Heart size is normal. Bones and chest wall: No suspicious bony lesions. Overlying soft tissues appear unremarkable. IMPRESSION: No acute cardiopulmonary pathology. Dictated by: Reji Starr M.D. on 07/19/2020 at 8:33 Approved by: Reji Starr M.D. on 07/19/2020 at 8:33 ECG Data Attestation: I personally reviewed and interpreted this ECG as follows: Prior ECG tracings: not available for review Interpretation: Sinus rhythm Normal axis Normal QRS Normal QTC No ST T wave changes MDM Narrative Medical decision making narrative: Patient did receive Xopenex by [facility] which he states helped his breathing tremendously. His blood sugar was elevated here but he has no indication of DKA. Had a fairly extensive discussion with both the patient and his regarding his symptoms. It turns out that his blood sugar was elevated over the past 24 hours. Did not seem to improve with the metformin. They were unsure is exactly how this medicine was supposed to help his blood sugar. They thought that he could receive 1 dose of insulin so that his blood sugar return to normal and then he would be fine after this. He also was somewhat anxious because he was having a hard time breathing this morning and he did not have any Xopenex at home. They were unsure as to what the next step was with regard to his new diagnosis of diabetes. Had many questions about specific diet related issues. I was able to review the notes from his visit at [facility] a couple days ago where he left against medical advice after there was discussion about admitting him for observation secondary to cardiac issues that he was having at the time. Patient does have a refill of his respiratory medications but he states he cannot pick them up until tomorrow secondary to insurance issues. I tried to reassure the patient and his regarding his diagnoses. We discussed diabetes and his metformin. He is going to contact his primary doctor regarding this. He is going to pick his medicine up tomorrow. He felt comfortable going home. He was given return precautions. Both he and his expressed understanding and agreement. Discharge Plan Departure Patient Disposition: Home Clinical Impression: Hyperglycemia, COPD (chronic obstructive pulmonary disease) Instructions: DI for Diabetes Type 2 Activity Restrictions/Additional Instructions: Recommend you continue all of your medications as directed. Contact your primary provider for a follow-up. You can look on the diabetes website on the Internet to get ID is about a change in your diet. Return to the emergency department for any new or worsening symptoms Prescriptions: No Action multivitamin [Multiple Vitamins] 1 EACH tablet 1 tab PO DAILY Qty: 0 RF: 0 aspirin 325 MG tablet,delayed release (DR/EC) 325 mg PO BEDTIME Qty: 0 RF: 0 fluticasone propionate 16 GM spray,suspension 1 spray Intranasal DAILY Qty: 0 RF: 0 acetaminophen-codeine 300-30 mg tablet 1 - 2 tab PO Q6H MDD 5 PRN (Reason: pain) RF: 0 furosemide 40 mg Tablet 40 mg PO DAILY RF: 0 clonidine HCl 0.1 mg tablet 0.1 - 0.2 mg PO Q8H PRN (Reason: withdrawal symptoms) RF: 0 ferrous sulfate 325 mg (65 mg iron) tablet,delayed release (DR/EC) 325 mg PO DAILY RF: 0 ipratropium bromide 0.02 % solution 2.5 ml inhalation Q6H RF: 0 Qvar RediHaler 40 mcg/actuation HFA aerosol breath activated 2 inh INHALATION BID RF: 0 ipratropium-albuterol 0.5 mg-3 mg(2.5 mg base)/3 mL solution for nebulization 3 ml INHALATION Q4-6H PRN (Reason: shortness of breath or wheezing) Qty: 90 RF: 1 trazodone 100 mg tablet 300 tab PO BEDTIME RF: 0 levalbuterol tartrate [Xopenex HFA] 45 mcg/actuation HFA aerosol inhaler 1 puff INHALATION Q4-6H PRN (Reason: shortness of breath or wheezing) Qty: 15 RF: 0 metoprolol tartrate 100 mg tablet 100 mg PO BID RF: 0 levalbuterol HCl 1.25 mg/3 mL solution for nebulization 3 ml Inhalation Q6H PRN (Reason: Shortness Of Breath) RF: 0 Zyrtec 10 mg Capsule 10 mg PO DAILY RF: 0 docusate sodium [DOK] 100 mg Capsule 100 mg PO BID PRN (Reason: constipation) Qty: 30 RF: 0 cyclobenzaprine 10 mg tablet 10 mg PO TID PRN (Reason: muscle spasm) Qty: 14 RF: 0 Referrals: Binu Ac MD [Primary Care Provider] -
[2020-07-19 09:03] LABS: Add Manual Diff / Slide Review NO; Basophils Absolute Auto 0 /uL (0-100); Basophils Percent Auto 0.9 % (0-2); Eosinophils Absolute Auto 100 /uL (0-450); Eosinophils Percent Auto 1.3 % (2-4); Hematocrit 41.1 % (41-53); Hemoglobin 13.9 g/dL (13.5-17.5); Lymphocytes Absolute Auto 900 /uL (1100-4500); Mean Corpuscular HGB Conc 33.7 % (30-36); Mean Corpuscular Hemoglobin 29.8 PG (26-34); Mean Corpuscular Volume 88.3 fL (80-100); Monocytes Absolute Auto 500 /uL (0-900); Monocytes Percent Auto 9.7 % (3-14); Neutrophils Absolute Auto 4000 /uL (1500-7000); Neutrophils Percent Auto 72.1 % (50-75); Platelet Count 264 X10^3/uL (150-400); Red Blood Cell Count 4.65 X10^6/uL (4.5-5.9); Red Cell Distribution Width 13.3 % (11.6-14.8); White Blood Cell Count 5.6 X10^3/uL (4.5-11.0)
[2020-07-19] MEDS: LEVALBUTEROL HFA 200 PUFF INH INH (09:05)
[2020-07-19 09:17] LABS: Creatine Kinase 208 U/L (55-170); Magnesium 1.9 mg/dL (1.6-2.3); Phosphorous 3.2 mg/dL (2.3-3.7)
[2020-07-19 09:18] LABS: Alanine Aminotransferase 42 IU/L (<50); Albumin 4.3 g/dL (3.5-5.0); Albumin Globulin Ratio 1.4 (1.0-2.8); Alkaline Phosphatase 98 U/L (38-126); Aspartate Aminotransferase 48 IU/L (17-59); Bilirubin Total 0.9 mg/dL (0.2-1.3); Blood Urea Nitrogen 14 mg/dL (9-20); Calcium 9.3 mg/dL (8.4-10.2); Carbon Dioxide 27 mmol/L (22-32); Chloride 101 mmol/L (98-107); Estimated Glomerular Filt Rate > 60.0 mL/min (>60); Globulin 3.1 g/dL (1.7-4.1); Glucose 276 mg/dL (80-110); HEMOLYSIS 41 (0-50); Lipase 83 U/L (23-300); Potassium 4.8 mmol/L (3.4-5.1); Sodium 133 mmol/L (137-145); Total Protein 7.4 g/dL (6.3-8.2)
[2020-07-19 09:19] LABS: COVID19 -Nasal RAPID Negative (Negative)
[2020-07-19 09:29] LABS: NT-proBNP (BNP-Adult 18+) 258 pg/mL (<450); Troponin I < 0.012 ng/mL (0.01-0.034)
[2020-07-19 09:31] LABS: CKMB % Relative Index 1.3 % (1.5-5.0); Creatine Kinase MB 2.75 ng/mL (<2.37); Ethanol (ETOH) < 10 mg/dL
[2020-07-19 09:36] LABS: Ketones (Beta-Hydroxybutyrate) 0.12 mmol/L (<0.27)
[2020-07-19] MEDS: ACETAMINOPHEN 325 MG TABLET 975 MG PO (10:29)
== END 2020-07-19 11:03 | disposition home or self-care (01) ==
PROVIDERS: Emergency Provider Emergency Medicine; PCP Internal Medicine
DX: E11.65 Type 2 diabetes mellitus with hyperglycemia (principal); J44.9 Chronic obstructive pulmonary disease, unspecified; R06.02 Shortness of breath; Z79.82 Long term (current) use of aspirin; R05 Cough; R20.2 Paresthesia of skin; R53.83 Other fatigue; I48.91 Unspecified atrial fibrillation; I11.0 Hypertensive heart disease with heart failure; I25.10 Atherosclerotic heart disease of native coronary artery without angina pectoris
CPT/HCPCS: 36415; 71045; 80053; 80320; 82009; 82550; 82553; 82962; 83690; 83735; 83880; 84100; 84145; 84484; 85025; 87635; 93005; 93010; 99283; 99284

== ENCOUNTER → 2020-08-12 12:50 | Outpatient (CLI) | payer OTHER, SELFPAY ==
[2019-05-25 19:29] VITALS: BMI 30.9
--- NOTE | 2020-08-12 | DI.RAD.S_ITS ---
PROCEDURE: XR FOOT RT MIN 3V INDICATIONS: Pain in right foot TECHNIQUE: 3 views of the foot were acquired. COMPARISON: None. FINDINGS: Bones: No fractures or dislocations. No suspicious bony lesions. Soft tissues: No tibiotalar joint effusion. Achilles tendon appears normal. IMPRESSION: No acute trauma found. 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 Dictated by: Damien Medina M.D. on 08/12/2020 at 13:25 Approved by: Damien Medina M.D. on 08/12/2020 at 13:26
== END ==
PROVIDERS: PCP Internal Medicine; Referring Provider Internal Medicine; Visit Provider Internal Medicine
DX: M79.671 Pain in right foot (principal); M19.071 Primary osteoarthritis, right ankle and foot
CPT/HCPCS: 73630

== ENCOUNTER 2020-08-17 10:16 | Emergency (ER) | payer OTHER, SELFPAY ==
[2019-05-25 19:29] VITALS: BMI 30.9
[2020-08-17 10:27] VITALS: BP 155/67; PULSE 78; RESP 14; TEMP 36.8; O2SAT 97; BMI 27.9
--- NOTE | 2020-08-17 10:27 | ED_ITS ---
HPI - Extremity Problem General Chief complaint: Extremity Problem,Nontraumatic Stated complaint: right leg/foot swelling Time Seen by Provider: 08/17/20 10:25 Source: patient and old records reviewed Mode of arrival: Ambulatory Limitations: no limitations History of Present Illness HPI Narrative: This is a 75-year-old male who comes to the emergency department with complaint of pain on the dorsum of his right foot. Patient states it started approximately 6-7 days ago. He noted that there was ecchymosis on the dorsum of his right foot. Patient states that he was sitting at a desk when he noted this and does not recall any prior trauma. Patient states he did have an x-ray but continues to have pain. He states that there has been improvement of the bruising. He states the pain has been keeping him up at night. He has taken oxycodone in the past but states he currently does not have any. He states the pain radiates up his leg. He has not appreciated any new swelling in his leg, redness or other color changes. He does have chronic back pain which sometimes radiates down towards the knees but not usually this bar. He was recently diagnosed with diabetes and is taking metformin daily. He states his recent Accu-Chek this morning was 156. He denies any fevers. No chest pain or shortness of breath. He does occasionally have significant discomfort when eating and had what sounds like a sphincterotomy of the esophageal sphincter in the past. He has not had any major changes with bowel movements or urination. No new numbness, tingling or weakness in his extremity. Patient denies any an ticoagulation including aspirin. Pain is worsened with ambulation and weight- bearing, it improves with rest but does not completely resolve. Patient states he has an appointment on Wednesday with his primary care Dr. Ac. Related Data Home Medications Medication Instructions Recorded Confirmed multivitamin [Multiple Vitamins] 1 tab PO DAILY #0 12/21/16 05/25/19 aspirin 325 mg PO BEDTIME #0 11/03/17 05/25/19 fluticasone propionate 1 spray INTRANASAL DAILY #0 11/03/17 05/25/19 trazodone 300 tab PO BEDTIME 12/10/17 10/20/19 levalbuterol HCl 3 ml INHALATION Q6H PRN 10/17/18 10/20/19 metoprolol tartrate 100 mg PO BID 10/17/18 05/25/19 Zyrtec 10 mg PO DAILY 05/23/19 05/25/19 acetaminophen-codeine 1 - 2 tab PO Q6H PRN MDD 5 10/20/19 10/20/19 beclomethasone dipropionate [Qvar 2 inh INHALATION BID 10/20/19 10/20/19 RediHaler] clonidine HCl 0.1 - 0.2 mg PO Q8H PRN 10/20/19 10/20/19 ferrous sulfate 325 mg PO DAILY 10/20/19 furosemide 40 mg PO DAILY 10/20/19 10/20/19 ipratropium bromide 2.5 ml INHALATION Q6H 10/20/19 Previous Rx's Medication Instructions Recorded levalbuterol tartrate [Xopenex HFA] 1 puff INHALATION Q4-6H PRN #15 06/23/18 gram docusate sodium [DOK] 100 mg PO BID PRN #30 cap 05/28/19 ipratropium-albuterol 3 ml INHALATION Q4-6H PRN #90 ml 10/20/19 cyclobenzaprine 10 mg PO TID PRN #14 tab 02/12/20 oxycodone-acetaminophen [Percocet] 1 tab PO QID PRN #10 tab 08/17/20 Allergies Allergy/AdvReac Type Severity Reaction Status Date / Time celecoxib [CELECOXIB] Allergy Mild SWELLING Verified 08/17/20 10:27 latex [LATEX] Allergy Mild RASH Verified 08/17/20 10:27 W/EXTENDED EXPOSURE Sulfa (Sulfonamide Allergy Mild RASH Verified 08/17/20 10:27 Antibiotics) [SULFA (SULFONAMIDE ANTIBIOTICS)] varenicline [VARENICLINE] AdvReac Severe Paranoia Verified 08/17/20 10:27 buprenorphine [BUPRENORPHINE] AdvReac Mild NAUSEA, Verified 08/17/20 10:27 DIZZINESS hyoscyamine [HYOSCYAMINE] AdvReac Mild LEG Verified 08/17/20 10:27 JERKING, ANXIETY, NAUSEA W/I MINUTES Cppitzf-Aig-Gzc Reductase AdvReac Mild WEAK Verified 08/17/20 10:27 Inhibitor MUSCLES [ORQHOSH-QQM-NDP REDUCTASE INHIBITOR] diazepam [From Valium] AdvReac Confusion Verified 08/17/20 10:27 morphine AdvReac Confusion Verified 08/17/20 10:27 Review of Systems Review of Systems ROS Unobtainable: All systems reviewed & are unremarkable except as noted in HPI and below Patient History Medical History Achalasia Anginal pain Asthma Atrial fibrillation Cervical spinal stenosis Chronic obstructive pulmonary disease (10/23/16) COPD (chronic obstructive pulmonary disease) Coronary artery disease History of aortic dissection (~08/2007) Hypertension Ischemic cardiomyopathy Narcotic dependence Neck pain, chronic Ventricular bigeminy Surgical History H/O arthroscopic knee surgery (11/15/17) History of arthroplasty of right knee History of bilateral total hip arthroplasty History of cardiac cath (~03/2014) History of esophageal surgery History of incision and drainage (~2016) History of prior ablation treatment (~03/2017) History of surgery Hx of cholecystectomy Hx of hernia repair Hx of sinus surgery S/P CABG x 3 (~08/2007) S/P cervical spinal fusion S/P lumbar fusion Family History Mother Stroke Social History household members: spouse Smoking Status: Former smoker alcohol intake: current substance use type: does not use Smoking Status: Former smoker alcohol intake frequency: a few times a week Substance Use Type: does not use Exam Narrative Exam Narrative: GENERAL: Alert and oriented x three, well-nourished male in mild distress. HEENT: Head normocephalic, atraumatic, EOMI, pupils reactive, face symmetric, moist mucous membranes NECK: Supple, full range of motion CARDIOVASCULAR: Regular rate and rhythm without murmurs, rubs or gallops. RESPIRATORY: Breath sounds equal bilaterally, no wheezes rales or rhonchi. ABDOMEN: Soft, nontender. Normoactive bowel sounds all 4 quadrants. No guarding or rebound, rigidity, no mass EXTREMITIES: Normal range of motion, no clubbing or edema appreciated. Patient has tenderness over the dorsum of the foot in the mid, metatarsal region 234. No other bony tenderness is appreciated through the toes, distal or proximal foot, patient is nontender on the ball and plantar side of his foot. No ankle, calf tenderness. 2+ dorsalis pedis. There is a varicose vein present over the dorsum of the foot which is mildly tender but has no warmth, erythema and is soft without any signs of clot or fullness. Neurovascularly intact. Cap refills less than 2 seconds in all 5 toes. NEUROLOGICAL: Cranial nerves II through XII grossly intact. Moving all extremities SKIN: Warm, dry, no petechiae, no rashes or lesions. Initial Vital Signs Initial Vital Signs: Vital Signs Temperature 98.2 F 08/17/20 10:27 Pulse Rate 78 08/17/20 10:27 Respiratory Rate 14 08/17/20 10:27 Blood Pressure 155/67 H 08/17/20 10:27 Pulse Oximetry 97 08/17/20 10:27 Scores Wells' Criteria for DVT Active Cancer (Treatment within 6 months): No Bedridden recently >3 days or major surgery within 4 weeks: No Calf Swelling >3cm compared to other leg: No Collateral (nonvericose) superficial veins present: Yes Entire leg swollen: No Localized tenderness along the deep vein system: No Pitting edema, confined to symtomatic leg: No Paralysis, paresis, or recent plaster immobilization of ext: No Previously documented DVT: No Alternative dx to DVT as likely or more likely: Yes Wells' criteria for DVT: -1 Course Orders Ordered: ED Orders 08/17/20 10:40 Complete Blood Count AUTO DIFF Stat Comprehensive Metabolic Panel Stat 08/17/20 10:44 XR foot RT min 3V Stat 08/17/20 10:45 US periph venous low extrem rt Stat Discontinued Medications Ondansetron HCl (Ondansetron 4 Mg/2 Ml Inj) 4 mg IV NOW ONE Stop: 08/17/20 11:02 Last Admin: 08/17/20 11:09 Dose: 4 mg Documented by: DWIGHT Oxycodone/Acetaminophen (Oxycodone/Acetaminophen 5/325 Tablet) 1 tab PO NOW ONE Stop: 08/17/20 10:47 Last Admin: 08/17/20 11:13 Dose: 1 tab Documented by: DWIGHT Vital Signs Vital signs: Vital Signs - 8 hr 08/17/20 12:44 Pulse Rate 77 Respiratory Rate 18 Blood Pressure 150/69 H Pulse Oximetry 94 MDM - Extremity (Nontraumatic) Lab Data Result diagrams: 08/17/20 10:40 08/17/20 10:40 Labs: Lab Results 08/17/20 08/17/20 Range/Units 10:40 10:40 WBC 5.3 (4.5-11.0) X10^3/uL RBC 4.47 L (4.5-5.9) X10^6/uL Hgb 12.7 L (13.5-17.5) g/dL Hct 38.7 L (41-53) % MCV 86.6 (80-100) fL MCH 28.5 (26-34) PG MCHC 32.9 (30-36) % RDW 13.6 (11.6-14.8) % Plt Count 251 (150-400) X10^3/uL Neut % (Auto) 67.5 (50-75) % Lymph % (Auto) 18.0 L (25-40) % Calvert % (Auto) 7.8 (3-14) % Eos % (Auto) 5.6 H (2-4) % Baso % (Auto) 1.1 (0-2) % Neut # (Auto) 3500 (9553-8396) /uL Lymph # (Auto) 900 L (1359-4243) /uL Calvert # (Auto) 400 (0-900) /uL Eos # (Auto) 300 (0-450) /uL Baso # (Auto) 100 (0-100) /uL Sodium 136 L (137-145) mmol/L Potassium 4.2 (3.4-5.1) mmol/L Chloride 102 (98-107) mmol/L Carbon Dioxide 26 (22-32) mmol/L BUN 13 (9-20) mg/dL Creatinine 0.69 (0.66-1.25) mg/dL Estimated GFR > 60.0 (>60) mL/min BUN/Creatinine Ratio 18.8 (6-22) Glucose 176 H (80-110) mg/dL Calcium 9.0 (8.4-10.2) mg/dL Total Bilirubin 0.5 (0.2-1.3) mg/dL AST 44 (17-59) IU/L ALT 35 (<50) IU/L Alkaline Phosphatase 88 (38-126) U/L Total Protein 7.1 (6.3-8.2) g/dL Albumin 4.2 (3.5-5.0) g/dL Globulin 2.9 (1.7-4.1) g/dL Albumin/Globulin Ratio 1.4 (1.0-2.8) Imaging Data US - DVT: Radiologist's Impression: prelim is negative. Extremity x-ray #1: Radiologist's Impression: [facility] [place] [id number] ReportSigned Patient: Karthikeyan Yo [facility]#: [id number]: 5Acct:[id number]/Sex: 75 / MDate of Service: 08/17/20Loc: EDAccession Number: [id number] Procedure: XR foot RT min 3V Ordering Provider: Saira Mccullough D.O. PROCEDURE: XR FOOT RT MIN 3V INDICATIONS: pain, dorsum of foot. TECHNIQUE: 3 views of the foot were acquired. COMPARISON: [facility], , XR FOOT RT MIN 3V, 08/12/2020, 13:02. FINDINGS: Bones: No fractures or dislocations. No periosteal reaction. No osseous erosion seen. No suspicious bony lesions. Advanced degenerative change at the 1st MTP joint. Soft tissues: No tibiotalar joint effusion. Achilles tendon appears normal. No radiopaque foreign body. IMPRESSION: No acute osseous abnormality identified on this short-term interval follow-up. Dictated by: Timo Tran M.D. on 08/17/2020 at 10:10 Approved by: Timo Tran M.D. on 08/17/2020 at 10:11 [facility] Narrative Medical decision making narrative: No signs of fracture, no DVT, no signs of cellulitis or infection are noted. Patient is to follow up with primary care. Discharge Plan Departure Patient Disposition: Home Clinical Impression: Foot pain Instructions: DI for Foot Pain Activity Restrictions/Additional Instructions: Follow-up with your physician at your scheduled appointment on Wednesday. Your imaging does not show any signs of fracture/break or clot in your lower extremity. Take medication as prescribed this medication can make you sleepy do not drive, perform hazardous activities make any major decisions while taking this med ication. I would recommend taking a stool softener once to 2 times daily while taking any narcotic pain medication. Prescription to [facility] in [place]. Continue home medications as prescribed. Return to the ER for fevers, new redness, swelling, rapidly worsening pain, loss of sensation, inability in the usual leg, new weakness or numbness, chest pain or shortness of breath, persistent vomiting or other new or concerning symptoms. Prescriptions: New oxycodone-acetaminophen [Percocet] 5-325 mg tablet 1 tab PO QID PRN (Reason: pain) Qty: 10 RF: 0 No Action multivitamin [Multiple Vitamins] 1 EACH tablet 1 tab PO DAILY Qty: 0 RF: 0 aspirin 325 MG tablet,delayed release (DR/EC) 325 mg PO BEDTIME Qty: 0 RF: 0 fluticasone propionate 16 GM spray,suspension 1 spray Intranasal DAILY Qty: 0 RF: 0 acetaminophen-codeine 300-30 mg tablet 1 - 2 tab PO Q6H MDD 5 PRN (Reason: pain) RF: 0 furosemide 40 mg Tablet 40 mg PO DAILY RF: 0 clonidine HCl 0.1 mg tablet 0.1 - 0.2 mg PO Q8H PRN (Reason: withdrawal symptoms) RF: 0 ferrous sulfate 325 mg (65 mg iron) tablet,delayed release (DR/EC) 325 mg PO DAILY RF: 0 ipratropium bromide 0.02 % solution 2.5 ml inhalation Q6H RF: 0 Qvar RediHaler 40 mcg/actuation HFA aerosol breath activated 2 inh INHALATION BID RF: 0 ipratropium-albuterol 0.5 mg-3 mg(2.5 mg base)/3 mL solution for nebulization 3 ml INHALATION Q4-6H PRN (Reason: shortness of breath or wheezing) Qty: 90 RF: 1 trazodone 100 mg tablet 300 tab PO BEDTIME RF: 0 levalbuterol tartrate [Xopenex HFA] 45 mcg/actuation HFA aerosol inhaler 1 puff INHALATION Q4-6H PRN (Reason: shortness of breath or wheezing) Qty: 15 RF: 0 metoprolol tartrate 100 mg tablet 100 mg PO BID RF: 0 levalbuterol HCl 1.25 mg/3 mL solution for nebulization 3 ml Inhalation Q6H PRN (Reason: Shortness Of Breath) RF: 0 Zyrtec 10 mg Capsule 10 mg PO DAILY RF: 0 docusate sodium [DOK] 100 mg Capsule 100 mg PO BID PRN (Reason: constipation) Qty: 30 RF: 0 cyclobenzaprine 10 mg tablet 10 mg PO TID PRN (Reason: muscle spasm) Qty: 14 RF: 0 Referrals: Binu Ac MD [Primary Care Provider] -
--- NOTE | 2020-08-17 10:44 | DI.RAD.S_ITS ---
PROCEDURE: XR FOOT RT MIN 3V INDICATIONS: pain, dorsum of foot. TECHNIQUE: 3 views of the foot were acquired. COMPARISON: [facility], [place], XR FOOT RT MIN 3V, 08/12/2020, 13:02. FINDINGS: Bones: No fractures or dislocations. No periosteal reaction. No osseous erosion seen. No suspicious bony lesions. Advanced degenerative change at the 1st MTP joint. Soft tissues: No tibiotalar joint effusion. Achilles tendon appears normal. No radiopaque foreign body. IMPRESSION: No acute osseous abnormality identified on this short-term interval follow-up. Dictated by: Timo Tran M.D. on 08/17/2020 at 10:10 Approved by: Timo Tran M.D. on 08/17/2020 at 10:11
--- NOTE | 2020-08-17 10:45 | DI.US.S_ITS ---
PROCEDURE: US PERIPH VENOUS LOW EXTREM RT INDICATIONS: right leg pain TECHNIQUE: Real-time imaging, as well as color and pulse Doppler interrogation, were performed of the lower extremity deep veins from the inguinal ligament to the popliteal fossa. COMPARISON: None. FINDINGS: The common femoral, femoral and popliteal veins are normally compressible, and free of intraluminal thrombus. Color and pulse Doppler demonstrate normal phasic intraluminal flow. There is normal augmentation response to distal compression maneuver. IMPRESSION: No right lower extremity DVT. Dictated by: Timo Tran M.D. on 08/17/2020 at 11:16 Approved by: Timo Tran M.D. on 08/17/2020 at 11:18
[2020-08-17 10:47] VITALS: PULSE 77; O2SAT 97
[2020-08-17 10:48] VITALS: BP 176/72; PULSE 76; RESP 18; O2SAT 97
[2020-08-17 10:53] LABS: Add Manual Diff / Slide Review NO; Basophils Absolute Auto 100 /uL (0-100); Basophils Percent Auto 1.1 % (0-2); Eosinophils Absolute Auto 300 /uL (0-450); Eosinophils Percent Auto 5.6 % (2-4); Hematocrit 38.7 % (41-53); Hemoglobin 12.7 g/dL (13.5-17.5); Lymphocytes Absolute Auto 900 /uL (1100-4500); Mean Corpuscular HGB Conc 32.9 % (30-36); Mean Corpuscular Hemoglobin 28.5 PG (26-34); Mean Corpuscular Volume 86.6 fL (80-100); Monocytes Absolute Auto 400 /uL (0-900); Monocytes Percent Auto 7.8 % (3-14); Neutrophils Absolute Auto 3500 /uL (1500-7000); Neutrophils Percent Auto 67.5 % (50-75); Platelet Count 251 X10^3/uL (150-400); Red Blood Cell Count 4.47 X10^6/uL (4.5-5.9); Red Cell Distribution Width 13.6 % (11.6-14.8); White Blood Cell Count 5.3 X10^3/uL (4.5-11.0)
[2020-08-17 11:00] VITALS: PULSE 73; O2SAT 96
[2020-08-17] MEDS: ONDANSETRON 4 MG/2 ML INJ IV (11:09)
[2020-08-17] MEDS: OXYCODONE/ACETAMINOPHEN 5/325 TABLET 1 TAB PO (11:13)
[2020-08-17 12:15] LABS: Alanine Aminotransferase 35 IU/L (<50); Albumin 4.2 g/dL (3.5-5.0); Albumin Globulin Ratio 1.4 (1.0-2.8); Alkaline Phosphatase 88 U/L (38-126); Aspartate Aminotransferase 44 IU/L (17-59); BUN Creatinine Ratio 18.8 (6-22); Bilirubin Total 0.5 mg/dL (0.2-1.3); Blood Urea Nitrogen 13 mg/dL (9-20); Carbon Dioxide 26 mmol/L (22-32); Chloride 102 mmol/L (98-107); Estimated Glomerular Filt Rate > 60.0 mL/min (>60); Globulin 2.9 g/dL (1.7-4.1); Glucose 176 mg/dL (80-110); HEMOLYSIS < 15 (0-50); Potassium 4.2 mmol/L (3.4-5.1); Sodium 136 mmol/L (137-145); Total Protein 7.1 g/dL (6.3-8.2)
[2020-08-17 12:44] VITALS: BP 150/69; PULSE 77; RESP 18; O2SAT 94
== END 2020-08-17 12:45 | disposition home or self-care (01) ==
PROVIDERS: Emergency Provider Emergency Medicine; PCP Internal Medicine
DX: M79.671 Pain in right foot (principal); M54.9 Dorsalgia, unspecified; I48.0 Paroxysmal atrial fibrillation; J44.9 Chronic obstructive pulmonary disease, unspecified; I10 Essential (primary) hypertension; I25.10 Atherosclerotic heart disease of native coronary artery without angina pectoris; I25.5 Ischemic cardiomyopathy
CPT/HCPCS: 36415; 73630; 80053; 85025; 93971; 96374; 99284; J2405

== ENCOUNTER 2020-08-29 08:07 | Emergency (ER) | payer OTHER, SELFPAY ==
[2019-05-25 19:29] VITALS: BMI 30.9
[2020-08-29 08:21] VITALS: BP 148/67; PULSE 63; RESP 20; TEMP 36.4; O2SAT 98; BMI 28.0
[2020-08-29 08:26] LABS: Add Manual Diff / Slide Review NO; Basophils Absolute Auto 100 /uL (0-100); Basophils Percent Auto 1.2 % (0-2); Eosinophils Absolute Auto 100 /uL (0-450); Eosinophils Percent Auto 1.8 % (2-4); Lymphocytes Absolute Auto 1400 /uL (1100-4500); Lymphocytes Percent Auto 18.1 % (25-40); Mean Corpuscular HGB Conc 32.9 % (30-36); Mean Corpuscular Hemoglobin 28.6 PG (26-34); Monocytes Absolute Auto 700 /uL (0-900); Monocytes Percent Auto 9.2 % (3-14); Neutrophils Absolute Auto 5300 /uL (1500-7000); Neutrophils Percent Auto 69.7 % (50-75); Platelet Count 258 X10^3/uL (150-400); Red Blood Cell Count 2.81 X10^6/uL (4.5-5.9); Red Cell Distribution Width 14.1 % (11.6-14.8); White Blood Cell Count 7.7 X10^3/uL (4.5-11.0)
[2020-08-29 08:29] LABS: Hematocrit 24.4 % (41-53)
[2020-08-29 08:34] VITALS: PULSE 66; O2SAT 98
--- NOTE | 2020-08-29 08:35 | ED_ITS ---
HPI - General Adult General Chief complaint: Abdominal Pain Stated complaint: abdominal pain Time Seen by Provider: 08/29/20 08:07 Source: patient Mode of arrival: Wheelchair Limitations: no limitations History of Present Illness HPI narrative: Patient is a 75-year-old male here for evaluation of abdominal pain. Patient states that several years ago he started having abdominal pain. He states that for the past 3 months he feels like the pain has been worsening. Two weeks ago he went to an outside facility for the abdominal pain that he came to the emergency department with this morning. He states that during that visit he had an evaluation to include CT scans. He was told that the arteries in his mesentery were narrowed. He states the ER doctor that time talk with vascular surgery who stated that it was not to the point that he would require anti stenting. It was recommended that he follow up with General surgery. He has an appointment with General surgery in 5 days from now. He does take pain medication as prescribed by his primary doctor. He states that over the past 2 weeks symptoms have been worsening to the point that last night he was crying and stating that his pain was worse. He states that he took the rest of his pain medication last night. He also states that last night he was having issues with losing his balance and falling over. His states he potentially took 6 clonidine pills. He is prescribed clonidine by his primary doctor for when he runs out of pain medication for ?withdrawal? symptoms. Patient states he did not take 6 of his clonidine pills. He denies any fevers. No urinary symptoms. He has had dark colored stools over the past couple days. Related Data Home Medications Medication Instructions Recorded Confirmed multivitamin [Multiple Vitamins] 1 tab PO DAILY #0 12/21/16 05/25/19 aspirin 325 mg PO BEDTIME #0 11/03/17 05/25/19 fluticasone propionate 1 spray INTRANASAL DAILY #0 11/03/17 05/25/19 trazodone 300 tab PO BEDTIME 12/10/17 10/20/19 levalbuterol HCl 3 ml INHALATION Q6H PRN 10/17/18 10/20/19 metoprolol tartrate 100 mg PO BID 10/17/18 05/25/19 Zyrtec 10 mg PO DAILY 05/23/19 05/25/19 acetaminophen-codeine 1 - 2 tab PO Q6H PRN MDD 5 10/20/19 10/20/19 beclomethasone dipropionate [Qvar 2 inh INHALATION BID 10/20/19 10/20/19 RediHaler] clonidine HCl 0.1 - 0.2 mg PO Q8H PRN 10/20/19 10/20/19 ferrous sulfate 325 mg PO DAILY 10/20/19 furosemide 40 mg PO DAILY 10/20/19 10/20/19 ipratropium bromide 2.5 ml INHALATION Q6H 10/20/19 Previous Rx's Medication Instructions Recorded levalbuterol tartrate [Xopenex HFA] 1 puff INHALATION Q4-6H PRN #15 06/23/18 gram docusate sodium [DOK] 100 mg PO BID PRN #30 cap 05/28/19 ipratropium-albuterol 3 ml INHALATION Q4-6H PRN #90 ml 10/20/19 cyclobenzaprine 10 mg PO TID PRN #14 tab 02/12/20 oxycodone-acetaminophen [Percocet] 1 tab PO QID PRN #10 tab 08/17/20 Allergies Allergy/AdvReac Type Severity Reaction Status Date / Time celecoxib [CELECOXIB] Allergy Mild SWELLING Verified 08/17/20 10:27 latex [LATEX] Allergy Mild RASH Verified 08/17/20 10:27 W/EXTENDED EXPOSURE Sulfa (Sulfonamide Allergy Mild RASH Verified 08/17/20 10:27 Antibiotics) [SULFA (SULFONAMIDE ANTIBIOTICS)] varenicline [VARENICLINE] AdvReac Severe Paranoia Verified 08/17/20 10:27 buprenorphine [BUPRENORPHINE] AdvReac Mild NAUSEA, Verified 08/17/20 10:27 DIZZINESS hyoscyamine [HYOSCYAMINE] AdvReac Mild LEG Verified 08/17/20 10:27 JERKING, ANXIETY, NAUSEA W/I MINUTES Vfmgefp-Pus-Pfw Reductase AdvReac Mild WEAK Verified 08/17/20 10:27 Inhibitor MUSCLES [[id number] REDUCTASE INHIBITOR] diazepam [From Valium] AdvReac Confusion Verified 08/17/20 10:27 morphine AdvReac Agitated Verified 08/29/20 09:42 Review of Systems Constitutional Constitutional: Denies fever(s) Cardiovascular Cardiovascular: Denies chest pain and Denies dyspnea Respiratory Respiratory: Denies dyspnea Gastrointestinal Gastrointestinal: Reports abdominal pain, Denies change in bowel habits, Denies nausea and Denies vomiting Genitourinary Genitourinary: Denies dysuria Genitourinary: Denies dysuria Musculoskeletal Musculoskeletal: Denies arthralgias and Denies myalgias Integumentary/Breasts Skin/Breast: Denies lesions and Denies rash Neurologic Neurologic: Denies behavioral changes Psychiatric Psychiatric: Denies behavioral changes Hematologic/Lymphatic On Anticoagulants: No Allergic/Immunologic Allergic/Immunologic: Denies urticaria Patient History Medical History Achalasia Anginal pain Asthma Atrial fibrillation Cervical spinal stenosis Chronic obstructive pulmonary disease (10/23/16) COPD (chronic obstructive pulmonary disease) Coronary artery disease History of aortic dissection (~08/2007) Hypertension Ischemic cardiomyopathy Narcotic dependence Neck pain, chronic Ventricular bigeminy Surgical History H/O arthroscopic knee surgery (11/15/17) History of arthroplasty of right knee History of bilateral total hip arthroplasty History of cardiac cath (~03/2014) History of esophageal surgery History of incision and drainage (~2016) History of prior ablation treatment (~03/2017) History of surgery Hx of cholecystectomy Hx of hernia repair Hx of sinus surgery S/P CABG x 3 (~08/2007) S/P cervical spinal fusion S/P lumbar fusion Family History Mother Stroke Social History household members: spouse Smoking Status: Former smoker alcohol intake: current substance use type: does not use Smoking Status: Former smoker alcohol intake frequency: a few times a week Substance Use Type: does not use Exam Initial Vital Signs Initial Vital Signs: Vital Signs Temperature 97.6 F 08/29/20 08:21 Pulse Rate 63 08/29/20 08:21 Respiratory Rate 20 08/29/20 08:21 Blood Pressure 148/67 H 08/29/20 08:21 Pulse Oximetry 98 08/29/20 08:21 Const General: cooperative Limitations: mental status not altered HENMT Head: normal to inspection and normocephalic Resp Effort & Inspection: normal respiratory effort Cardio Rate: regular rate GI Inspection: non-distended Palpation: soft and tender (Diffuse) Rectal Exam: normal sphincter tone and heme positive stool Skin Lesions: no lesions Rashes: no rashes Neuro General: patient alert and patient awake Cognition: normal cognition Speech: speech normal Extrem General: capillary refill normal Psych Appearance: grossly normal and well kempt Scores GCS [place] coma scale eye opening: Spontaneous Keith coma scale verbal response: Orientated Keith coma scale motor response: Obey commands Keith coma scale total score: 15 Course Orders Ordered: ED Orders 08/29/20 08:16 Complete Blood Count AUTO DIFF Stat Comprehensive Metabolic Panel Stat Lactate (Lactic Acid) Stat Lipase Stat 08/29/20 08:47 CT angio chest abdomen pelvis Stat Discontinued Medications Sodium Chloride (Normal Saline 0.9%) 1,000 mls @ 1,000 mls/hr IV BOLUS ONE Stop: 08/29/20 09:15 Last Infusion: 08/29/20 09:45 Dose: 0 mls/hr Documented by: Admin: 08/29/20 08:36 Dose: 1,000 mls/hr Documented by: BARAK Morphine Sulfate (Morphine 4 Mg/Ml Inj) 4 mg IV NOW ONE Stop: 08/29/20 08:49 Last Admin: 08/29/20 08:54 Dose: 4 mg Documented by: BARAK Vital Signs Vital signs: Vital Signs - 8 hr 08/29/20 08:21 08/29/20 08:34 08/29/20 09:10 Temperature 97.6 F Pulse Rate 63 66 73 Respiratory Rate 20 Blood Pressure 148/67 H Pulse Oximetry 98 98 96 08/29/20 09:11 08/29/20 09:30 08/29/20 10:00 Temperature Pulse Rate 69 67 64 Respiratory Rate Blood Pressure 151/70 H 134/63 159/69 H Pulse Oximetry 96 97 96 Medical Decision Making Medical Records Medical records reviewed: Yes I reviewed the patient's medical records. Lab Data Lab results reviewed: Yes I reviewed the patient's lab results. Result diagrams: 08/29/20 08:16 08/29/20 08:16 Labs: Lab Results 08/29/20 08/29/20 08/29/20 Range/Units 08:16 08:16 08:16 WBC 7.7 (4.5-11.0) X10^3/uL RBC 2.81 L (4.5-5.9) X10^6/uL Hgb 8.0 L (13.5-17.5) g/dL Hct 24.4 L (41-53) % MCV 87.0 (80-100) fL MCH 28.6 (26-34) PG MCHC 32.9 (30-36) % RDW 14.1 (11.6-14.8) % Plt Count 258 (150-400) X10^3/uL Neut % (Auto) 69.7 (50-75) % Lymph % (Auto) 18.1 L (25-40) % Dewitt % (Auto) 9.2 (3-14) % Eos % (Auto) 1.8 L (2-4) % Baso % (Auto) 1.2 (0-2) % Neut # (Auto) 5300 (1963-3072) /uL Lymph # (Auto) 1400 (1838-9418) /uL Dewitt # (Auto) 700 (0-900) /uL Eos # (Auto) 100 (0-450) /uL Baso # (Auto) 100 (0-100) /uL Sodium 135 L (137-145) mmol/L Potassium 4.5 (3.4-5.1) mmol/L Chloride 103 (98-107) mmol/L Carbon Dioxide 31 (22-32) mmol/L BUN 28 H (9-20) mg/dL Creatinine 0.84 (0.66-1.25) mg/dL Estimated GFR > 60.0 (>60) mL/min BUN/Creatinine Ratio 33.3 H (6-22) Glucose 144 H (80-110) mg/dL Lactate 2.0 (0.7-2.1) mmol/L Calcium 8.5 (8.4-10.2) mg/dL Total Bilirubin 0.4 (0.2-1.3) mg/dL AST 28 (17-59) IU/L ALT 26 (<50) IU/L Alkaline Phosphatase 68 (38-126) U/L Total Protein 6.0 L (6.3-8.2) g/dL Albumin 3.7 (3.5-5.0) g/dL Globulin 2.3 (1.7-4.1) g/dL Albumin/Globulin Ratio 1.6 (1.0-2.8) Lipase 226 (23-300) U/L Imaging Data CTA chest/abd/pelvis: Radiologist's Impression: [address] [id number] Scan ReportSigned Patient: Karthikeyan Yo [facility]#: [id number]: 5Acct:[id number]/Sex: 75 / MDate of Service: 08/29/20Loc: EDAccession Number: [id number] Procedure: CT angio chest abdomen pelvis Ordering Provider: Karthikeyan Prakash D.O. PROCEDURE: CT ANGIO CHEST ABDOMEN PELVIS INDICATIONS: abdominal pain and anemia TECHNIQUE: Precontrast 5 mm thick sections acquired from the lung apices to the iliac crests. After the administration of intravenous contrast, 2.5 mm thick sections again acquired from the lung apices to the iliac crests. Maximum intensity projection (MIP) oblique sagittal and coronal reformats were then acquired. For radiation dose reduction, the following was used: automated exposure control. COMPARISON: None. FINDINGS: Image quality: Excellent. AORTA and its attachments: There is mild aneurysmal dilatation of the ascending aorta, which measures 4.1 cm. Classic three-vessel arch anatomy. Great vessel origins are widely patent. Transverse arch and descending thoracic aorta are unremarkable. Diffuse abdominal aortic atherosclerotic calcifications. No aortic stenosis or common iliac or external iliac or common femoral stenosis. Diffuse plaque. No abdominal aortic aneurysm or dissection. CHEST: Lungs and pleura: No acute airspace opacities. No pleural effusions or pneumothorax. Central and peripheral airways are patent and normal in caliber. Mediastinum: Heart size is normal. No pericardial effusion. Remote CABG. Dense coronary artery calcifications. No mediastinal or hilar adenopathy by size criteria. Central pulmonary arteries are normal in size. Esophagus is normal in caliber. No hiatal hernias. Bones and chest wall: No axillary adenopathy by size criteria. Thyroid gland is unremarkable as visualized . No suspicious bony lesions. No vertebral body compression fractures. ABDOMEN: Vasculature: Celiac trunk and mesenteric arteries are patent. A mild right renal artery stenosis is noted. Solid organs: Liver is normal in size and enhancement. Gallbladder is surgically absent.. Biliary system is non dilated. Pancreas enhances normally. Spleen is normal in size and enhancement. No adrenal nodules. Both kidneys are normal in size and enhancement, without hydronephrosis. Peritoneum and bowel: No free fluid or air. Bowel loops are normal in caliber and wall thickness. Extensive sigmoid diverticulosis without evidence of diverticulitis. Nodes and vessels: No retroperitoneal or mesenteric adenopathy by size criteria. Inferior vena cava is normal in morphology. Miscellaneous: No ventral hernias. PELVIS: Genitourinary: Bladder wall thickness is normal. Miscellaneous: No inguinal hernias or adenopathy. No ventral hernias. Bones: No suspicious bony lesions. No vertebral body compression fractures. Bilateral total hip arthroplasties. L4 and L5 laminectomies and L4 through S1 bilateral posterior lateral evelyn and pedicle screw fixation. IMPRESSION: 1. Mild aneurysmal dilatation of the ascending aorta, measuring 4.1 cm. No dissection. Normal caliber abdominal aorta. 2. No evidence of acute hemorrhage. 3. Remote CABG, dense coronary artery calcifications. 4. Peripheral vascular disease. 5. No evidence acute pulmonary process. 6. No evidence of acute abdominal process. 7. Extensive sigmoid diverticulosis without evidence of diverticulitis. Dictated by: Dany Smith M.D. on 08/29/2020 at 9:22 Approved by: Dany Smith M.D. on 08/29/2020 at 9:37 [facility] Narrative Medical decision making narrative: Patient expressed multiple times that he needed pain medication. When his is at bedside she stated that when he has had Dilaudid and morphine in the past he has become confused however the patient states that that is incorrect. He states that he does not have any allergy to morphine or Dilaudid. He states that his his ?narcissistic and over protective ?. Informed patient that maybe his is concerned about his pain medication use in he is not aware of the amount that he is using. Patient is adamant that he is not addicted. Informed him that he would receive 1 dose of pain medication from me here in the emergency department while we complete his workup. He expressed understanding of this. I was able to review the workup that he had 2 weeks ago at [facility]. His CT scan today is unremarkable for any acute surgical issues. He is anemic today however not had a threshold where he would require blood transfusion. He is not hypotensive or tachycardic from this. He is Hemoccult positive. I was able to discuss the case with his primary doctor. He has an appointment with General surgery in the next 5 days. I feel waiting until that General surgery appointment to discuss further evaluation of his black stools would be appropriate. Patient was informed of this. He was instructed to keep all of his scheduled medical appointments. His primary doctor wanted the patient to contact their office this afternoon for a telehealth visit. The patient was informed of this. I do have a high suspicion of drug-seeking behavior given his presentation today. I would hesitate to give pain medication to this patient in the future. His primary doctor agrees with this. Patient was given return precautions. Expressed understanding and agreement. Discharge Plan Departure Patient Disposition: Home Clinical Impression: Abdominal pain, Melena Instructions: DI for Abdominal Pain-Adult Activity Restrictions/Additional Instructions: I do recommend that you start taking your Prilosec. This is a medicine that you can purchase [id number] if you no longer have any of this medicine left. Please take all of your medications as directed. Any further pain medication will have to be provided by your primary provider. I did discuss your case today with your primary provider. He would like you to call his office so that he can set up a telehealth visit for you. Prescriptions: No Action multivitamin [Multiple Vitamins] 1 EACH tablet 1 tab PO DAILY Qty: 0 RF: 0 aspirin 325 MG tablet,delayed release (DR/EC) 325 mg PO BEDTIME Qty: 0 RF: 0 fluticasone propionate 16 GM spray,suspension 1 spray Intranasal DAILY Qty: 0 RF: 0 acetaminophen-codeine 300-30 mg tablet 1 - 2 tab PO Q6H MDD 5 PRN (Reason: pain) RF: 0 furosemide 40 mg Tablet 40 mg PO DAILY RF: 0 clonidine HCl 0.1 mg tablet 0.1 - 0.2 mg PO Q8H PRN (Reason: withdrawal symptoms) RF: 0 ferrous sulfate 325 mg (65 mg iron) tablet,delayed release (DR/EC) 325 mg PO DAILY RF: 0 ipratropium bromide 0.02 % solution 2.5 ml inhalation Q6H RF: 0 Qvar RediHaler 40 mcg/actuation HFA aerosol breath activated 2 inh INHALATION BID RF: 0 ipratropium-albuterol 0.5 mg-3 mg(2.5 mg base)/3 mL solution for nebulization 3 ml INHALATION Q4-6H PRN (Reason: shortness of breath or wheezing) Qty: 90 RF: 1 trazodone 100 mg tablet 300 tab PO BEDTIME RF: 0 levalbuterol tartrate [Xopenex HFA] 45 mcg/actuation HFA aerosol inhaler 1 puff INHALATION Q4-6H PRN (Reason: shortness of breath or wheezing) Qty: 15 RF: 0 metoprolol tartrate 100 mg tablet 100 mg PO BID RF: 0 levalbuterol HCl 1.25 mg/3 mL solution for nebulization 3 ml Inhalation Q6H PRN (Reason: Shortness Of Breath) RF: 0 Zyrtec 10 mg Capsule 10 mg PO DAILY RF: 0 docusate sodium [DOK] 100 mg Capsule 100 mg PO BID PRN (Reason: constipation) Qty: 30 RF: 0 cyclobenzaprine 10 mg tablet 10 mg PO TID PRN (Reason: muscle spasm) Qty: 14 RF: 0 oxycodone-acetaminophen [Percocet] 5-325 mg tablet 1 tab PO QID PRN (Reason: pain) Qty: 10 RF: 0 Referrals: Binu Ac MD [Primary Care Provider] -
[2020-08-29 08:36] LABS: Alanine Aminotransferase 26 IU/L (<50); Albumin 3.7 g/dL (3.5-5.0); Albumin Globulin Ratio 1.6 (1.0-2.8); Alkaline Phosphatase 68 U/L (38-126); Aspartate Aminotransferase 28 IU/L (17-59); BUN Creatinine Ratio 33.3 (6-22); Bilirubin Total 0.4 mg/dL (0.2-1.3); Blood Urea Nitrogen 28 mg/dL (9-20); Calcium 8.5 mg/dL (8.4-10.2); Carbon Dioxide 31 mmol/L (22-32); Chloride 103 mmol/L (98-107); Estimated Glomerular Filt Rate > 60.0 mL/min (>60); Globulin 2.3 g/dL (1.7-4.1); Glucose 144 mg/dL (80-110); HEMOLYSIS < 15 (0-50); Lipase 226 U/L (23-300); Potassium 4.5 mmol/L (3.4-5.1); Sodium 135 mmol/L (137-145)
[2020-08-29] MEDS: SODIUM CHLORIDE 0.9% 1,000 ML 1000 ML IV (08:36)
--- NOTE | 2020-08-29 08:47 | DI.CT.S_ITS ---
PROCEDURE: CT ANGIO CHEST ABDOMEN PELVIS INDICATIONS: abdominal pain and anemia TECHNIQUE: Precontrast 5 mm thick sections acquired from the lung apices to the iliac crests. After the administration of intravenous contrast, 2.5 mm thick sections again acquired from the lung apices to the iliac crests. Maximum intensity projection (MIP) oblique sagittal and coronal reformats were then acquired. For radiation dose reduction, the following was used: automated exposure control. COMPARISON: None. FINDINGS: Image quality: Excellent. AORTA and its attachments: There is mild aneurysmal dilatation of the ascending aorta, which measures 4.1 cm. Classic three-vessel arch anatomy. Great vessel origins are widely patent. Transverse arch and descending thoracic aorta are unremarkable. Diffuse abdominal aortic atherosclerotic calcifications. No aortic stenosis or common iliac or external iliac or common femoral stenosis. Diffuse plaque. No abdominal aortic aneurysm or dissection. CHEST: Lungs and pleura: No acute airspace opacities. No pleural effusions or pneumothorax. Central and peripheral airways are patent and normal in caliber. Mediastinum: Heart size is normal. No pericardial effusion. Remote CABG. Dense coronary artery calcifications. No mediastinal or hilar adenopathy by size criteria. Central pulmonary arteries are normal in size. Esophagus is normal in caliber. No hiatal hernias. Bones and chest wall: No axillary adenopathy by size criteria. Thyroid gland is unremarkable as visualized . No suspicious bony lesions. No vertebral body compression fractures. ABDOMEN: Vasculature: Celiac trunk and mesenteric arteries are patent. A mild right renal artery stenosis is noted. Solid organs: Liver is normal in size and enhancement. Gallbladder is surgically absent.. Biliary system is non dilated. Pancreas enhances normally. Spleen is normal in size and enhancement. No adrenal nodules. Both kidneys are normal in size and enhancement, without hydronephrosis. Peritoneum and bowel: No free fluid or air. Bowel loops are normal in caliber and wall thickness. Extensive sigmoid diverticulosis without evidence of diverticulitis. Nodes and vessels: No retroperitoneal or mesenteric adenopathy by size criteria. Inferior vena cava is normal in morphology. Miscellaneous: No ventral hernias. PELVIS: Genitourinary: Bladder wall thickness is normal. Miscellaneous: No inguinal hernias or adenopathy. No ventral hernias. Bones: No suspicious bony lesions. No vertebral body compression fractures. Bilateral total hip arthroplasties. L4 and L5 laminectomies and L4 through S1 bilateral posterior lateral evelyn and pedicle screw fixation. IMPRESSION: 1. Mild aneurysmal dilatation of the ascending aorta, measuring 4.1 cm. No dissection. Normal caliber abdominal aorta. 2. No evidence of acute hemorrhage. 3. Remote CABG, dense coronary artery calcifications. 4. Peripheral vascular disease. 5. No evidence acute pulmonary process. 6. No evidence of acute abdominal process. 7. Extensive sigmoid diverticulosis without evidence of diverticulitis. Dictated by: Dany Smith M.D. on 08/29/2020 at 9:22 Approved by: Dany Smith M.D. on 08/29/2020 at 9:37
[2020-08-29] MEDS: MORPHINE 4 MG/ML INJ IV (08:54)
[2020-08-29 09:10] VITALS: PULSE 73; O2SAT 96
[2020-08-29 09:11] VITALS: BP 151/70; PULSE 69; O2SAT 96
[2020-08-29 09:30] VITALS: BP 134/63; PULSE 67; O2SAT 97
[2020-08-29 10:00] VITALS: BP 159/69; PULSE 64; O2SAT 96
[2020-08-29 10:22] LABS: Reflexed Lactate in 2 Hours Y
== END 2020-08-29 10:28 | disposition home or self-care (01) ==
PROVIDERS: Emergency Provider Emergency Medicine; PCP Internal Medicine
DX: R10.9 Unspecified abdominal pain (principal); K92.1 Melena; D64.9 Anemia, unspecified; J44.9 Chronic obstructive pulmonary disease, unspecified; I25.10 Atherosclerotic heart disease of native coronary artery without angina pectoris; I10 Essential (primary) hypertension; I25.5 Ischemic cardiomyopathy
CPT/HCPCS: 36415; 71275; 74174; 80053; 83605; 83690; 85025; 96361; 96374; 99281; 99284; J2270

== ENCOUNTER 2020-09-10 08:10 | Emergency (ER) | payer OTHER, SELFPAY ==
[2019-05-25 19:29] VITALS: BMI 30.9
[2020-09-10 08:30] VITALS: BP 176/84; PULSE 90; RESP 20; TEMP 36.8; O2SAT 98; BMI 27.7
--- NOTE | 2020-09-10 08:38 | ED_ITS ---
HPI - General Adult General Chief complaint: Chest Pain Stated complaint: Chest pain,bilateral leg pain and back pain Time Seen by Provider: 09/10/20 08:29 Source: patient Mode of arrival: Ambulatory Limitations: no limitations History of Present Illness HPI narrative: Patient is a 75-year-old male. I evaluated him in the emergency department in the past for abdominal pain. During his last visit here his expressed extreme concern about his use of opioids. I also had concern based on his presentation about opioid abuse and potential drug-seeking behavior. I also had a discussion with his primary doctor during that visit who also had concerns about his opioid abuse. Since that time he stated that he has been dismissed from his primary doctor's office. He states he has a new primary doctor that he is going to see but that is several days from now. Also since that last visit he has been seen by vascular surgery at [facility] for his ?chronic mesenteric ischemia ?and was told that he needed to be seen by providers at a ?larger center ?during his last visit here he did have a CT scan of his abdomen which did not show any emergent issues. He states he returns to the emergency department today for chest pain and leg pain and back pain and abdominal pain. Related Data Home Medications Medication Instructions Recorded Confirmed multivitamin [Multiple Vitamins] 1 tab PO DAILY #0 12/21/16 05/25/19 aspirin 325 mg PO BEDTIME #0 11/03/17 05/25/19 fluticasone propionate 1 spray INTRANASAL DAILY #0 11/03/17 05/25/19 trazodone 300 tab PO BEDTIME 12/10/17 10/20/19 levalbuterol HCl 3 ml INHALATION Q6H PRN 10/17/18 10/20/19 metoprolol tartrate 100 mg PO BID 10/17/18 05/25/19 Zyrtec 10 mg PO DAILY 05/23/19 05/25/19 acetaminophen-codeine 1 - 2 tab PO Q6H PRN MDD 5 10/20/19 10/20/19 beclomethasone dipropionate [Qvar 2 inh INHALATION BID 10/20/19 10/20/19 RediHaler] clonidine HCl 0.1 - 0.2 mg PO Q8H PRN 10/20/19 10/20/19 ferrous sulfate 325 mg PO DAILY 10/20/19 furosemide 40 mg PO DAILY 10/20/19 10/20/19 ipratropium bromide 2.5 ml INHALATION Q6H 10/20/19 Previous Rx's Medication Instructions Recorded levalbuterol tartrate [Xopenex HFA] 1 puff INHALATION Q4-6H PRN #15 06/23/18 gram docusate sodium [DOK] 100 mg PO BID PRN #30 cap 05/28/19 ipratropium-albuterol 3 ml INHALATION Q4-6H PRN #90 ml 10/20/19 cyclobenzaprine 10 mg PO TID PRN #14 tab 02/12/20 oxycodone-acetaminophen [Percocet] 1 tab PO QID PRN #10 tab 08/17/20 Allergies Allergy/AdvReac Type Severity Reaction Status Date / Time celecoxib [CELECOXIB] Allergy Mild SWELLING Verified 08/17/20 10:27 latex [LATEX] Allergy Mild RASH Verified 08/17/20 10:27 W/EXTENDED EXPOSURE Sulfa (Sulfonamide Allergy Mild RASH Verified 08/17/20 10:27 Antibiotics) [SULFA (SULFONAMIDE ANTIBIOTICS)] varenicline [VARENICLINE] AdvReac Severe Paranoia Verified 08/17/20 10:27 buprenorphine [BUPRENORPHINE] AdvReac Mild NAUSEA, Verified 08/17/20 10:27 DIZZINESS hyoscyamine [HYOSCYAMINE] AdvReac Mild LEG Verified 08/17/20 10:27 JERKING, ANXIETY, NAUSEA W/I MINUTES Ficqcrq-Nwk-Ruq Reductase AdvReac Mild WEAK Verified 08/17/20 10:27 Inhibitor MUSCLES [[id number]-MCG-[id number] REDUCTASE INHIBITOR] diazepam [From Valium] AdvReac Confusion Verified 08/17/20 10:27 morphine AdvReac Agitated Verified 08/29/20 09:42 Review of Systems Constitutional Constitutional: Denies fever(s) and Denies headache(s) ENT Ears, Nose, Mouth, and Throat: Denies headache(s) Cardiovascular Cardiovascular: Reports chest pain and Denies dyspnea Respiratory Respiratory: Denies dyspnea Gastrointestinal Gastrointestinal: Reports abdominal pain Musculoskeletal Musculoskeletal: Reports back pain Comments: Leg pain Integumentary/Breasts Skin/Breast: Denies rash Neurologic Neurologic: Denies headache(s) Allergic/Immunologic Allergic/Immunologic: Denies urticaria Patient History Medical History Achalasia Anginal pain Asthma Atrial fibrillation Cervical spinal stenosis Chronic obstructive pulmonary disease (10/23/16) COPD (chronic obstructive pulmonary disease) Coronary artery disease History of aortic dissection (~08/2007) Hypertension Ischemic cardiomyopathy Narcotic dependence Neck pain, chronic Ventricular bigeminy Surgical History H/O arthroscopic knee surgery (11/15/17) History of arthroplasty of right knee History of bilateral total hip arthroplasty History of cardiac cath (~03/2014) History of esophageal surgery History of incision and drainage (~2016) History of prior ablation treatment (~03/2017) History of surgery Hx of cholecystectomy Hx of hernia repair Hx of sinus surgery S/P CABG x 3 (~08/2007) S/P cervical spinal fusion S/P lumbar fusion Family History Mother Stroke Social History household members: spouse Smoking Status: Former smoker alcohol intake: current substance use type: does not use Smoking Status: Former smoker alcohol intake frequency: a few times a week Substance Use Type: does not use Exam Initial Vital Signs Initial Vital Signs: Vital Signs Temperature 98.2 F 09/10/20 08:30 Pulse Rate 90 09/10/20 08:30 Respiratory Rate 20 09/10/20 08:30 Blood Pressure 176/84 H 09/10/20 08:30 Pulse Oximetry 98 09/10/20 08:30 Const General: cooperative Limitations: mental status not altered HENND Head: normal to inspection Resp Effort & Inspection: normal respiratory effort Cardio Rate: regular rate GI Inspection: non-distended Skin Lesions: no lesions Rashes: no rashes Neuro General: patient alert, patient awake and patient oriented x3 Cognition: normal cognition Speech: speech normal Extrem General: normal to inspection Psych Appearance: grossly normal and well kempt Scores GCS Keith coma scale eye opening: Spontaneous [place] coma scale verbal response: Orientated Keith coma scale motor response: Obey commands Keith coma scale total score: 15 Course Orders Ordered: ED Orders 09/10/20 08:30 Complete Blood Count AUTO DIFF Stat Comprehensive Metabolic Panel Stat Lipase Stat Partial Thromboplastin Time Stat Prothrombin Time INR Stat Troponin & CK Cardiac Panel Stat 09/10/20 08:35 XR chest 1V Stat EKG-12 Lead Stat Vital Signs Vital signs: Vital Signs - 8 hr 09/10/20 08:30 Temperature 98.2 F Pulse Rate 90 Respiratory Rate 20 Blood Pressure 176/84 H Pulse Oximetry 98 Medical Decision Making Lab Data Result diagrams: 09/10/20 08:30 09/10/20 08:30 ECG Data Attestation: I personally reviewed and interpreted this ECG as follows: Prior ECG tracings: not available for review Interpretation: Sinus rhythm Ventricular rate 90 Normal axis Normal QRS Normal QTC No ST T wave changes MDM Narrative Medical decision making narrative: I informed the patient that given his prior history and my prior discussions with his primary doctor that he would not be receiving any opioid pain medication here in the emergency department. I informed him that we could try some non opioid treatments however the patient declined. He stated that he did not have a primary doctor I informed him that unfortunately he was going to have to wait until he sees his primary doctor bef ore he can have any prescriptions and medications as these need to come from 1 provider. He asked for pain medication here in the ER for which I again refused opioids however offered non opioid treatment. He he asked for pain medication ?for the next 3 days? for which I again refused and offered non opioid treatment. Patient then stated ?I just want to go home ?. Patient left without receiving discharge instructions. Discharge Plan Departure Patient Disposition: Home Clinical Impression: Abdominal pain Instructions: DI for Abdominal Pain-Adult Activity Restrictions/Additional Instructions: I recommend that you continue all of your medications as directed. I also recommend that you keep all of your scheduled medical appointments. Unfortunately the emergency department can no longer provide you any opioid pain medication. This will have to come from 1 provider which ideally will be your primary care provider. Return to the emergency department for any new symptoms. Prescriptions: No Action multivitamin [Multiple Vitamins] 1 EACH tablet 1 tab PO DAILY Qty: 0 RF: 0 aspirin 325 MG tablet,delayed release (DR/EC) 325 mg PO BEDTIME Qty: 0 RF: 0 fluticasone propionate 16 GM spray,suspension 1 spray Intranasal DAILY Qty: 0 RF: 0 acetaminophen-codeine 300-30 mg tablet 1 - 2 tab PO Q6H MDD 5 PRN (Reason: pain) RF: 0 furosemide 40 mg Tablet 40 mg PO DAILY RF: 0 clonidine HCl 0.1 mg tablet 0.1 - 0.2 mg PO Q8H PRN (Reason: withdrawal symptoms) RF: 0 ferrous sulfate 325 mg (65 mg iron) tablet,delayed release (DR/EC) 325 mg PO DAILY RF: 0 ipratropium bromide 0.02 % solution 2.5 ml inhalation Q6H RF: 0 Qvar RediHaler 40 mcg/actuation HFA aerosol breath activated 2 inh INHALATION BID RF: 0 ipratropium-albuterol 0.5 mg-3 mg(2.5 mg base)/3 mL solution for nebulization 3 ml INHALATION Q4-6H PRN (Reason: shortness of breath or wheezing) Qty: 90 RF: 1 trazodone 100 mg tablet 300 tab PO BEDTIME RF: 0 levalbuterol tartrate [Xopenex HFA] 45 mcg/actuation HFA aerosol inhaler 1 puff INHALATION Q4-6H PRN (Reason: shortness of breath or wheezing) Qty: 15 RF: 0 metoprolol tartrate 100 mg tablet 100 mg PO BID RF: 0 levalbuterol HCl 1.25 mg/3 mL solution for nebulization 3 ml Inhalation Q6H PRN (Reason: Shortness Of Breath) RF: 0 Zyrtec 10 mg Capsule 10 mg PO DAILY RF: 0 docusate sodium [DOK] 100 mg Capsule 100 mg PO BID PRN (Reason: constipation) Qty: 30 RF: 0 cyclobenzaprine 10 mg tablet 10 mg PO TID PRN (Reason: muscle spasm) Qty: 14 RF: 0 oxycodone-acetaminophen [Percocet] 5-325 mg tablet 1 tab PO QID PRN (Reason: pain) Qty: 10 RF: 0 Referrals: Karthikeyan Wilson MD [Primary Care Provider] -
[2020-09-10 08:46] LABS: Add Manual Diff / Slide Review NO; Basophils Absolute Auto 0 /uL (0-100); Basophils Percent Auto 0.1 % (0-2); Eosinophils Absolute Auto 0 /uL (0-450); Hematocrit 24.5 % (41-53); Hemoglobin 7.8 g/dL (13.5-17.5); Lymphocytes Absolute Auto 500 /uL (1100-4500); Lymphocytes Percent Auto 6.8 % (25-40); Mean Corpuscular Hemoglobin 26.7 PG (26-34); Mean Corpuscular Volume 83.4 fL (80-100); Monocytes Absolute Auto 600 /uL (0-900); Monocytes Percent Auto 7.9 % (3-14); Neutrophils Absolute Auto 6000 /uL (1500-7000); Neutrophils Percent Auto 85.2 % (50-75); Platelet Count 211 X10^3/uL (150-400); Red Blood Cell Count 2.93 X10^6/uL (4.5-5.9); Red Cell Distribution Width 15.3 % (11.6-14.8)
[2020-09-10 08:47] LABS: Prothrombin Time 12.1 SECONDS (10.1-12.7)
[2020-09-10 08:50] LABS: PTT Partial Thromboplastin Tim 27 SECONDS (26.4-36.2)
[2020-09-10 08:51] LABS: Alanine Aminotransferase 29 IU/L (<50); Albumin 4.1 g/dL (3.5-5.0); Albumin Globulin Ratio 1.5 (1.0-2.8); Alkaline Phosphatase 82 U/L (38-126); Aspartate Aminotransferase 25 IU/L (17-59); BUN Creatinine Ratio 22.4 (6-22); Bilirubin Total 0.4 mg/dL (0.2-1.3); Blood Urea Nitrogen 15 mg/dL (9-20); Calcium 9.2 mg/dL (8.4-10.2); Carbon Dioxide 29 mmol/L (22-32); Chloride 100 mmol/L (98-107); Creatine Kinase 82 U/L (55-170); Estimated Glomerular Filt Rate > 60.0 mL/min (>60); Globulin 2.7 g/dL (1.7-4.1); Glucose 225 mg/dL (80-110); HEMOLYSIS < 15 (0-50); Lipase 99 U/L (23-300); Potassium 4.3 mmol/L (3.4-5.1); Sodium 136 mmol/L (137-145); Total Protein 6.8 g/dL (6.3-8.2)
[2020-09-10 09:02] LABS: Troponin I < 0.012 ng/mL (0.01-0.034)
== END 2020-09-10 08:56 | disposition home or self-care (01) ==
PROVIDERS: Emergency Provider Emergency Medicine; PCP Family Medicine
DX: R10.9 Unspecified abdominal pain (principal); M54.9 Dorsalgia, unspecified; I10 Essential (primary) hypertension; I48.91 Unspecified atrial fibrillation; J44.9 Chronic obstructive pulmonary disease, unspecified; I25.10 Atherosclerotic heart disease of native coronary artery without angina pectoris; R07.9 Chest pain, unspecified
CPT/HCPCS: 36415; 80053; 82550; 83690; 84484; 85025; 85610; 85730; 93005; 99282; 99284

== ENCOUNTER 2020-11-01 14:37 | Emergency (ER) | payer OTHER, SELFPAY ==
[2019-05-25 19:29] VITALS: BMI 30.9
[2020-11-01 14:52] VITALS: BP 123/59; PULSE 69; RESP 20; TEMP 36.6; O2SAT 97; BMI 27.9
--- NOTE | 2020-11-01 14:57 | DI.RAD.S_ITS ---
PROCEDURE: XR CHEST 1V INDICATIONS: chest pain TECHNIQUE: One view of the chest was acquired. COMPARISON: [facility], CT, CT ANGIO CHEST ABDOMEN PELVIS, 08/29/2020, 8:55. [facility], CR, XR CHEST 1V, 07/19/2020, 9:02. [facility], CR, XR CHEST 1V, 05/15/2020, 11:49. FINDINGS: Surgical changes and devices: Post median sternotomy and CABG. ACDF. Lungs and pleura: Minimal hazy opacity at the left lung base. No pleural effusions or pneumothorax. Mediastinum: Mediastinal contours appear normal. Heart size is at the upper limits of normal. Bones and chest wall: No suspicious bony lesions. Suspect prior left distal clavicle osteotomy. Overlying soft tissues appear unremarkable. IMPRESSION: Minimal hazy opacity at the left lung base. Suspect atelectasis. Dictated by: Timo Tran M.D. on 11/01/2020 at 15:27 Approved by: Timo Tran M.D. on 11/01/2020 at 15:29
[2020-11-01 15:20] LABS: INR 1.1 (0.9-1.3); Prothrombin Time 12.9 SECONDS (10.1-12.7)
[2020-11-01 15:22] LABS: Add Manual Diff / Slide Review NO; Basophils Absolute Auto 100 /uL (0-100); Basophils Percent Auto 1.9 % (0-2); Eosinophils Absolute Auto 200 /uL (0-450); Eosinophils Percent Auto 2.6 % (2-4); Hematocrit 28.1 % (41-53); Hemoglobin 8.6 g/dL (13.5-17.5); Lymphocytes Absolute Auto 1200 /uL (1100-4500); Mean Corpuscular HGB Conc 30.7 % (30-36); Mean Corpuscular Hemoglobin 21.5 PG (26-34); Monocytes Absolute Auto 700 /uL (0-900); Neutrophils Absolute Auto 5200 /uL (1500-7000); Neutrophils Percent Auto 69.5 % (50-75); Platelet Count 274 X10^3/uL (150-400); Red Blood Cell Count 4.02 X10^6/uL (4.5-5.9); White Blood Cell Count 7.5 X10^3/uL (4.5-11.0)
[2020-11-01 15:23] LABS: PTT Partial Thromboplastin Tim 30 SECONDS (26.4-36.2)
[2020-11-01 15:27] LABS: Alanine Aminotransferase 19 IU/L (<50); Albumin 4.3 g/dL (3.5-5.0); Albumin Globulin Ratio 1.6 (1.0-2.8); Alkaline Phosphatase 64 U/L (38-126); Aspartate Aminotransferase 26 IU/L (17-59); BUN Creatinine Ratio 20.3 (6-22); Bilirubin Total 0.3 mg/dL (0.2-1.3); Blood Urea Nitrogen 15 mg/dL (9-20); Calcium 9.1 mg/dL (8.4-10.2); Carbon Dioxide 28 mmol/L (22-32); Chloride 99 mmol/L (98-107); Creatine Kinase 106 U/L (55-170); Estimated Glomerular Filt Rate > 60.0 mL/min (>60); Globulin 2.7 g/dL (1.7-4.1); Glucose 98 mg/dL (80-110); HEMOLYSIS < 15 (0-50); Lipase 152 U/L (23-300); Magnesium 1.8 mg/dL (1.6-2.3); Sodium 136 mmol/L (137-145)
[2020-11-01 15:37] LABS: Troponin I < 0.012 ng/mL (0.01-0.034)
[2020-11-01 15:42] LABS: CKMB % Relative Index 1.7 % (1.5-5.0)
[2020-11-01 15:46] LABS: Anisocytosis 2+
[2020-11-01 15:47] LABS: Hypochromasia 1+
[2020-11-01 15:48] LABS: Schistocytes 1+
--- NOTE | 2020-11-01 16:01 | PC.NURSE ---
Patient reports SOB and weakness. Has history of anemia. Denies chest pain. Denies vomiting and nausea. No blood in stool per patient.
--- NOTE | 2020-11-01 16:16 | PC.NURSE ---
Pt refused cardiac monitoring / vital signs. Requesting to stay in w/c.
--- NOTE | 2020-11-01 17:45 | PC.NURSE ---
Extensive discussion with patient and regarding recommendation for hospitalization. Patient requesting to go home. AMA paperwork signed. Patient has stuff to attend to at home and is persistent about seeing Dr Mcintosh with oncology. Pt refused rectal exam
--- NOTE | 2020-11-01 23:30 | ED.DIZZY ---
HPI - Dizziness <JORDAN Barber - Last Filed: 11/01/20 23:56> General Chief Complaint: Dizziness Stated Complaint: Cant walk, passing out sensation Time Seen by Provider: 11/01/20 17:20 Source: patient Mode of arrival: Ambulatory Limitations: no limitations History of Present Illness HPI Narrative: This is a 75 year male, former smoker, has past medical history significant for GI bleed from and NAIDS use, mesenteric ischemia, cardiomyopathy, COPD exacerbation, hypertension, CAD with cardiac bypass surgery, aortic aneurysm and dissection, atrial fibrillation, cervical stenosis presents to ED with spouse with chief complain of generalized weakness and feels like fainting. Patient reports onset of symptoms might have been over 3 months ago with worsening symptoms for a week. Patient denies chest pain, dyspnea, fever, chills, nausea or vomiting. He denies hematochezia, dark tarry stool like he had in the past with GI bleed. Patient reports feeling like faint usually comes with changing in position. Patient has chronic abdominal pain due to mesenteric ischemia after eating. Patient has not been eating well and has been eating small meals to prevent abdominal pain. Patient see vascular surgeon and cardiothoracic surgeon at [facility] and in [facility] but he is known for not surgical candidate due to high risk. Patient denies on anticoagulant, anti platelets except daily baby aspirin, or NSAIDS uses. Related Data Home Medications Medication Instructions Recorded Confirmed multivitamin [Multiple Vitamins] 1 tab PO DAILY #0 12/21/16 05/25/19 aspirin 325 mg PO BEDTIME #0 11/03/17 05/25/19 fluticasone propionate 1 spray INTRANASAL DAILY #0 11/03/17 05/25/19 trazodone 300 tab PO BEDTIME 12/10/17 10/20/19 levalbuterol HCl 3 ml INHALATION Q6H PRN 10/17/18 10/20/19 metoprolol tartrate 100 mg PO BID 10/17/18 05/25/19 Zyrtec 10 mg PO DAILY 05/23/19 05/25/19 acetaminophen-codeine 1 - 2 tab PO Q6H PRN MDD 5 10/20/19 10/20/19 beclomethasone dipropionate [Qvar 2 inh INHALATION BID 10/20/19 10/20/19 RediHaler] clonidine HCl 0.1 - 0.2 mg PO Q8H PRN 10/20/19 10/20/19 ferrous sulfate 325 mg PO DAILY 10/20/19 furosemide 40 mg PO DAILY 10/20/19 10/20/19 ipratropium bromide 2.5 ml INHALATION Q6H 10/20/19 Previous Rx's Medication Instructions Recorded levalbuterol tartrate [Xopenex HFA] 1 puff INHALATION Q4-6H PRN #15 06/23/18 gram docusate sodium [DOK] 100 mg PO BID PRN #30 cap 05/28/19 ipratropium-albuterol 3 ml INHALATION Q4-6H PRN #90 ml 10/20/19 cyclobenzaprine 10 mg PO TID PRN #14 tab 02/12/20 oxycodone-acetaminophen [Percocet] 1 tab PO QID PRN #10 tab 08/17/20 Allergies Allergy/AdvReac Type Severity Reaction Status Date / Time celecoxib [CELECOXIB] Allergy Mild SWELLING Verified 11/01/20 14:52 latex [LATEX] Allergy Mild RASH Verified 11/01/20 14:52 W/EXTENDED EXPOSURE Sulfa (Sulfonamide Allergy Mild RASH Verified 11/01/20 14:52 Antibiotics) [SULFA (SULFONAMIDE ANTIBIOTICS)] varenicline [VARENICLINE] AdvReac Severe Paranoia Verified 11/01/20 14:52 buprenorphine [BUPRENORPHINE] AdvReac Mild NAUSEA, Verified 11/01/20 14:52 DIZZINESS hyoscyamine [HYOSCYAMINE] AdvReac Mild LEG Verified 11/01/20 14:52 JERKING, ANXIETY, NAUSEA W/I MINUTES Qaysysc-Ldn-Nxd Reductase AdvReac Mild WEAK Verified 11/01/20 14:52 Inhibitor MUSCLES [[id number] REDUCTASE INHIBITOR] diazepam [From Valium] AdvReac Confusion Verified 11/01/20 14:52 morphine AdvReac Agitated Verified 11/01/20 14:52 Review of Systems <JORDAN Barber - Last Filed: 11/01/20 23:56> Review of Systems Narrative: General: See HPI HEENT: Denies sinus pain, ear pain, sore throat, difficulty swallowing, dizziness. Respiratory: Denies dyspnea, cough, wheezing, hemoptysis, sputum. Cardiovascular: See HPI Gastrointestinal: See HPI : Denies dysuria, frequency, incontinence, hematuria, urinary retention. Musculoskeletal: Denies weakness, joint pain or bony pain. Skin: Denies rash, skin lesions, or other. Neurologic: Denies weakness, headache, numbness, change in speech, confusion, seizures, incoordination. Psychiatric: No concerning psychosocial issues. 12-point review of systems is negative except for those stated above. Patient History <JORDAN Barber - Last Filed: 11/01/20 23:56> Medical History Achalasia Anginal pain Asthma Atrial fibrillation Cervical spinal stenosis Chronic obstructive pulmonary disease (10/23/16) COPD (chronic obstructive pulmonary disease) Coronary artery disease History of aortic dissection (~08/2007) Hypertension Ischemic cardiomyopathy Narcotic dependence Neck pain, chronic Ventricular bigeminy Surgical History H/O arthroscopic knee surgery (11/15/17) History of arthroplasty of right knee History of bilateral total hip arthroplasty History of cardiac cath (~03/2014) History of esophageal surgery History of incision and drainage (~2016) History of prior ablation treatment (~03/2017) History of surgery Hx of cholecystectomy Hx of hernia repair Hx of sinus surgery S/P CABG x 3 (~08/2007) S/P cervical spinal fusion S/P lumbar fusion Family History Mother Stroke Social History household members: spouse Smoking Status: Former smoker alcohol intake: current substance use type: does not use Smoking Status: Former smoker alcohol intake frequency: a few times a week Substance Use Type: does not use Exam <JORDAN Barber - Last Filed: 11/01/20 23:56> Narrative Exam Narrative: GEN: Alert, oriented x 3, well nourished, and in no acute distress. Head: Normal cephalic, atraumatic. No scalp or temporal tenderness, palpable mass or rash. EYES: Pupils are equal, round, and reactive to light and accommodation. Pale palpebral conjunctiva. Extraocular muscles are intact bilaterally. There is no subconjunctival hemorrhage, exudate and sclera non-icteric. ENT: Hearing grossly intact. Nose without bleeding, purulent discharge or deviation. Facial sinuses nontender to palpate. Mucous membrane dry, no mucosal lesion. Throat without erythema, tonsillar hypertrophy or exudate. Uvula in midline, airway patent. Neck: Trachea in midline. No JVD, non-tender without lymphadenopathy. No masses or thyroid megaly. Supple, non-tender and no meningeal signs. CARDIAC: Normal regular rate and rhythm without murmurs, gallops, or rubs. No chest wall tenderness. No peripheral edema, cyanosis or pallor. Capillary refill is less than 2 seconds. RESPIRATORY: Lungs are clear to auscultate bilaterally. No cough, wheezes, rales, or rhonchi. No stridor, respiratory distress, increase work of breathing, or accessary muscle used. ABD: Abdomen soft, nontender and non-distended. No guarding or rebound tenderness to palpate. Bowel sounds are normal in all 4 quadrants. There is no palpable masses or organomegaly. EXT: Full painless ROM of all extremities with no loss of sensation, effusion or edema. SKIN: Warm, dry, pale color for patient. No erythema, lesions or rash over visible areas. BACK: Nontender without deformity or crepitance. No flank tenderness. NEUROLOGICAL: Alert and oriented to place, time and person. Sensation and motor function intact bilaterally. No facial droops, dysphasia. PSYCHIATRIC: Good judgement and reason, without hallucinations, abnormal affect or abnormal behaviors during the examination. Patient is not suicidal. Initial Vital Signs Initial Vital Signs: Vital Signs Temperature 97.8 F 11/01/20 14:52 Pulse Rate 69 11/01/20 14:52 Respiratory Rate 20 11/01/20 14:52 Blood Pressure 123/59 L 11/01/20 14:52 Pulse Oximetry 97 11/01/20 14:52 <Saira Mccullough, DO - Last Filed: 11/02/20 19:48> Initial Vital Signs Initial Vital Signs: Vital Signs Temperature 97.8 F 11/01/20 14:52 Pulse Rate 69 11/01/20 14:52 Respiratory Rate 20 11/01/20 14:52 Blood Pressure 123/59 L 11/01/20 14:52 Pulse Oximetry 97 11/01/20 14:52 Scores <MARIE BarberP - Last Filed: 11/01/20 23:56> GCS [place] coma scale eye opening: Spontaneous Keith coma scale verbal response: Orientated Keith coma scale motor response: Obey commands [place] coma scale total score: 15 Course <JORDAN Barber - Last Filed: 11/01/20 23:56> Orders Ordered: ED Orders 11/01/20 14:57 XR chest 1V Stat EKG-12 Lead Stat 11/01/20 15:06 Complete Blood Count AUTO DIFF Stat Comprehensive Metabolic Panel Stat Lipase Stat Magnesium Stat Partial Thromboplastin Time Stat Prothrombin Time INR Stat Troponin & CK Cardiac Panel Stat <Saira Mccullough DO - Last Filed: 11/02/20 19:48> Orders Ordered: ED Orders 11/01/20 14:57 XR chest 1V Stat EKG-12 Lead Stat 11/01/20 15:06 Complete Blood Count AUTO DIFF Stat Comprehensive Metabolic Panel Stat Lipase Stat Magnesium Stat Partial Thromboplastin Time Stat Prothrombin Time INR Stat Troponin & CK Cardiac Panel Stat MDM - Dizziness <MARIE BarberP - Last Filed: 11/01/20 23:56> Differential Diagnosis Differential diagnosis: Likely orthostatic hypotension and other (arrythemia, anemia, electrolyte imbalance) Medical Records Attestation: I reviewed the patient's medical records. Lab Data Attestation: I reviewed the patient's lab results. Result diagrams: 11/01/20 15:06 11/01/20 15:06 Labs: Lab Results 11/01/20 11/01/20 11/01/20 Range/Units 15:06 15:06 15:06 WBC 7.5 (4.5-11.0) X10^3/uL RBC 4.02 L (4.5-5.9) X10^6/uL Hgb 8.6 L (13.5-17.5) g/dL Hct 28.1 L (41-53) % MCV 70.0 L (80-100) fL MCH 21.5 L (26-34) PG MCHC 30.7 (30-36) % RDW 21.0 H (11.6-14.8) % Plt Count 274 (150-400) X10^3/uL Neut % (Auto) 69.5 (50-75) % Lymph % (Auto) 16.0 L (25-40) % [place] % (Auto) 10.0 (3-14) % Eos % (Auto) 2.6 (2-4) % Baso % (Auto) 1.9 (0-2) % Neut # (Auto) 5200 (1177-2277) /uL Lymph # (Auto) 1200 (8052-9592) /uL [place] # (Auto) 700 (0-900) /uL Eos # (Auto) 200 (0-450) /uL Baso # (Auto) 100 (0-100) /uL RBC Morphology See below Hypochromasia 1+ H Anisocytosis 2+ H Schistocytes 1+ H PT 12.9 H (10.1-12.7) SECONDS INR 1.1 (0.9-1.3) APTT 30 (26.4-36.2) SECONDS Sodium 136 L (137-145) mmol/L Potassium 4.0 (3.4-5.1) mmol/L Chloride 99 (98-107) mmol/L Carbon Dioxide 28 (22-32) mmol/L BUN 15 (9-20) mg/dL Creatinine 0.74 (0.66-1.25) mg/dL Estimated GFR > 60.0 (>60) mL/min BUN/Creatinine Ratio 20.3 (6-22) Glucose 98 (80-110) mg/dL Calcium 9.1 (8.4-10.2) mg/dL Magnesium 1.8 (1.6-2.3) mg/dL Total Bilirubin 0.3 (0.2-1.3) mg/dL AST 26 (17-59) IU/L ALT 19 (<50) IU/L Alkaline Phosphatase 64 (38-126) U/L Total Creatine Kinase 106 (55-170) U/L CK-MB (CK-2) 1.80 (<2.37) ng/mL CK-MB (CK-2) Rel Index 1.7 (1.5-5.0) % Troponin I < 0.012 (0.01-0.034) ng/mL Total Protein 7.0 (6.3-8.2) g/dL Albumin 4.3 (3.5-5.0) g/dL Globulin 2.7 (1.7-4.1) g/dL Albumin/Globulin Ratio 1.6 (1.0-2.8) Lipase 152 (23-300) U/L Point of Care Testing Glucose POC 102 Imaging Data Chest x-ray: Radiologist's Impression: [place] [id number] [place] [id number] ReportSigned Patient: Karthikeyan Yo DMR#: [id number]: 5Acct:[id number]/Sex: 75 / MDate of Service: 11/01/20Loc: EDAccession Number: [id number] Procedure: XR chest 1V Ordering Provider: Saira Mccullough D.O. PROCEDURE: XR CHEST 1V INDICATIONS: chest pain TECHNIQUE: One view of the chest was acquired. COMPARISON: [facility], CT, CT ANGIO CHEST ABDOMEN PELVIS, 08/29/2020, 8:55. [facility], CR, XR CHEST 1V, 07/19/2020, 9:02. [facility], CR, XR CHEST 1V, 05/15/2020, 11:49. FINDINGS: Surgical changes and devices: Post median sternotomy and CABG. ACDF. Lungs and pleura: Minimal hazy opacity at the left lung base. No pleural effusions or pneumothorax. Mediastinum: Mediastinal contours appear normal. Heart size is at the upper limits of normal. Bones and chest wall: No suspicious bony lesions. Suspect prior left distal clavicle osteotomy. Overlying soft tissues appear unremarkable. IMPRESSION: Minimal hazy opacity at the left lung base. Suspect atelectasis. Dictated by: Timo Tran M.D. on 11/01/2020 at 15:27 Approved by: Tiom Tran M.D. on 11/01/2020 at 15:29 ECG Data Attestation: I personally reviewed and interpreted this ECG as follows: Prior ECG tracings: available for review Interpretation: Normal sinus rhythm with premature atrial complex. Normal axis. LA interval 184, QRS duration 88, QT/QTC 428/452. No acute ST changes. Similar EKG tracings in the past on September 10, 2020 [facility] Narrative Medical decision making narrative: This is a 75 year male who presents to ED with chief complain of generalized weakness and feel like fainting during ambulation. Standard syncope orders initiated during triage. Patient reports he has extensive cardiac history, aortic aneurysm and dissection with repair during cardiac bypass surgery, hypertension, cardiomyopathy, AFib, GI bleed, COPD, chronic neck and back pain. Patient is not currently on blood thinner but takes baby aspirin daily. Patient is not currently taking NSAIDs. Patient does not have additional or increasing abdominal pain the size his chronic mesenteric ischemic discomfort with eating. Patient reports he has not been feeling well over 3 months with increase in symptoms during last week. Patient does not have other cardiac related symptoms at this time. EKG normal sinus rhythm with PAC without acute ST changes. Today's CBC shows H&H of 8.6/28.1. Platelet count of 274. Unremarkable coag test results. Unremarkable chemistry test results. Cardiac enzymes were negative. When findings were shared with the patient and spouse about low blood count but not enough level for transfusion. However, would like to speak with the hospitalist for possible admission for symptomatic anemia and further evaluation of the etiology including GI bleed. Patient declined rectal exam for Hemoccult test. Patient denies even changing into a gown and moving himself from a wheelchair to bed. Spouse in patient states does not want a stay in the hospital or even staying longer since his is not able to drive dark and they would like to go home to take care of things and their animals. Repeated the importance of following up to find the reason for the anemia and spouse states patient's primary care physician Dr. Mcneill can folllow up the testings and a referral to oncologist Dr. Cardenas. Spouse state she had the same condition and Dr. Cardenas was so helpful with evaluations and treatment. They both repeated declined further exam and study or hospitalization. The patient is alert and oriented x 4 and has a cap acid to make sound medical decision at this time. Patient signed Against Medical Advice form. Patient and spouse informed taken return any time with any reasons specially worsening symptoms. Return precautions discussed with patient and spouse. <Saira Mccullough, DO - Last Filed: 11/02/20 19:48> Lab Data Labs: Lab Results 11/01/20 11/01/20 11/01/20 Range/Units 15:06 15:06 15:06 WBC 7.5 (4.5-11.0) X10^3/uL RBC 4.02 L (4.5-5.9) X10^6/uL Hgb 8.6 L (13.5-17.5) g/dL Hct 28.1 L (41-53) % MCV 70.0 L (80-100) fL MCH 21.5 L (26-34) PG MCHC 30.7 (30-36) % RDW 21.0 H (11.6-14.8) % Plt Count 274 (150-400) X10^3/uL Neut % (Auto) 69.5 (50-75) % Lymph % (Auto) 16.0 L (25-40) % [place] % (Auto) 10.0 (3-14) % Eos % (Auto) 2.6 (2-4) % Baso % (Auto) 1.9 (0-2) % Neut # (Auto) 5200 (1894-8831) /uL Lymph # (Auto) 1200 (6699-1952) /uL [place] # (Auto) 700 (0-900) /uL Eos # (Auto) 200 (0-450) /uL Baso # (Auto) 100 (0-100) /uL RBC Morphology See below Hypochromasia 1+ H Anisocytosis 2+ H Schistocytes 1+ H PT 12.9 H (10.1-12.7) SECONDS INR 1.1 (0.9-1.3) APTT 30 (26.4-36.2) SECONDS Sodium 136 L (137-145) mmol/L Potassium 4.0 (3.4-5.1) mmol/L Chloride 99 (98-107) mmol/L Carbon Dioxide 28 (22-32) mmol/L BUN 15 (9-20) mg/dL Creatinine 0.74 (0.66-1.25) mg/dL Estimated GFR > 60.0 (>60) mL/min BUN/Creatinine Ratio 20.3 (6-22) Glucose 98 (80-110) mg/dL Calcium 9.1 (8.4-10.2) mg/dL Magnesium 1.8 (1.6-2.3) mg/dL Total Bilirubin 0.3 (0.2-1.3) mg/dL AST 26 (17-59) IU/L ALT 19 (<50) IU/L Alkaline Phosphatase 64 (38-126) U/L Total Creatine Kinase 106 (55-170) U/L CK-MB (CK-2) 1.80 (<2.37) ng/mL CK-MB (CK-2) Rel Index 1.7 (1.5-5.0) % Troponin I < 0.012 (0.01-0.034) ng/mL Total Protein 7.0 (6.3-8.2) g/dL Albumin 4.3 (3.5-5.0) g/dL Globulin 2.7 (1.7-4.1) g/dL Albumin/Globulin Ratio 1.6 (1.0-2.8) Lipase 152 (23-300) U/L Point of Care Testing Glucose POC 102 Discharge Plan Departure Patient Disposition: Left Against Medical Advice Clinical Impression: Anemia Qualifiers: Anemia type: unspecified type Qualified Code(s): D64.9 - Anemia, unspecified Instructions: Anemia Activity Restrictions/Additional Instructions: You have been diagnosed with [anemia. I recommended further workup for reasons for anemia today including possible hospitalization which you and your spouse declined at this time and decided to leave against medical advice. Please start on iron pill, ferrous sulfate 325 mg once a day. You need to follow-up with primary care physician as soon as possible for the cause of anemia. Your signing out Against Medical Advice form today and stated understanding of the possible consequences including worsening symptoms even ]. What to do: *Take your medications as directed. *Follow up with your primary care provider in 2-3 days, call for an appointment. Let them know you were seen in the ED and that we asked you to be seen in follow up. Please do come back to emergency room with any worsening symptoms. *Return to ED if you have any new, worsening, or concerning symptoms, such as [chest pain, breathing difficulty, unable to tolerate fluids, near syncope, fever, or any acute concerns]. Prescriptions: No Action multivitamin [Multiple Vitamins] 1 EACH tablet 1 tab PO DAILY Qty: 0 RF: 0 aspirin 325 MG tablet,delayed release (DR/EC) 325 mg PO BEDTIME Qty: 0 RF: 0 fluticasone propionate 16 GM spray,suspension 1 spray Intranasal DAILY Qty: 0 RF: 0 acetaminophen-codeine 300-30 mg tablet 1 - 2 tab PO Q6H MDD 5 PRN (Reason: pain) RF: 0 furosemide 40 mg Tablet 40 mg PO DAILY RF: 0 clonidine HCl 0.1 mg tablet 0.1 - 0.2 mg PO Q8H PRN (Reason: withdrawal symptoms) RF: 0 ferrous sulfate 325 mg (65 mg iron) tablet,delayed release (DR/EC) 325 mg PO DAILY RF: 0 ipratropium bromide 0.02 % solution 2.5 ml inhalation Q6H RF: 0 Qvar RediHaler 40 mcg/actuation HFA aerosol breath activated 2 inh INHALATION BID RF: 0 ipratropium-albuterol 0.5 mg-3 mg(2.5 mg base)/3 mL solution for nebulization 3 ml INHALATION Q4-6H PRN (Reason: shortness of breath or wheezing) Qty: 90 RF: 1 trazodone 100 mg tablet 300 tab PO BEDTIME RF: 0 levalbuterol tartrate [Xopenex HFA] 45 mcg/actuation HFA aerosol inhaler 1 puff INHALATION Q4-6H PRN (Reason: shortness of breath or wheezing) Qty: 15 RF: 0 metoprolol tartrate 100 mg tablet 100 mg PO BID RF: 0 levalbuterol HCl 1.25 mg/3 mL solution for nebulization 3 ml Inhalation Q6H PRN (Reason: Shortness Of Breath) RF: 0 Zyrtec 10 mg Capsule 10 mg PO DAILY RF: 0 docusate sodium [DOK] 100 mg Capsule 100 mg PO BID PRN (Reason: constipation) Qty: 30 RF: 0 cyclobenzaprine 10 mg tablet 10 mg PO TID PRN (Reason: muscle spasm) Qty: 14 RF: 0 oxycodone-acetaminophen [Percocet] 5-325 mg tablet 1 tab PO QID PRN (Reason: pain) Qty: 10 RF: 0 Referrals: Karthikeyan Wilson MD [Primary Care Provider] - Stand Alone Forms: Against Medical Advice <Saira Mccullough DO - Last Filed: 11/02/20 19:48> Cosign ED Attending Cossusiature Attestation: I was immediately available in the department for consultation. Documentation has been reviewed. Patient case was discussed with myself at length. His hemoglobin does appear to be stable in comparison to prior was last seen in the department in September of 2020. Patient was offered observation at [facility] as his chronic anemia and near syncope type symptoms and complex medical history. Patient refused and left AMA.
--- NOTE | 2020-11-02 09:45 | PC.NURSE ---
Patient called the Emergency Department to get a referral to a doctor that was not his PCP and stated that the [employer], William, did not do her job properly because she did not speak ku[place]i. The patient was seen in the emergency department on 11/01/2020 and left AMA. During our conversation today, the patient became agitated when I explained the situation and that William made a referral to his PCP and he would have to see him if he needed different referral. He and his began to yell at me over the phone, saying that they did not sign out Against Medical Advice and that I must be stupid. I told the patient that I was trying to help him and I did not appreciate him yelling at me and I would not continue the conversation until they could speak to me calmly. The began yelling at me and called me a stupid bitch. I ended the conversation at this point by telling that I would not be spoken to like that and to have a nice day.
== END 2020-11-01 17:55 | disposition left against medical advice (07) ==
PROVIDERS: Emergency Medicine; Emergency Provider Nurse Practitioner Family; PCP Family Medicine
DX: D64.9 Anemia, unspecified (principal); R42 Dizziness and giddiness
CPT/HCPCS: 36415; 71045; 80053; 82550; 82553; 82962; 83690; 83735; 84484; 85025; 85610; 85730; 93005; 93010; 99283

== ENCOUNTER 2020-11-05 18:30 | Inpatient (IN) | payer OTHER, SELFPAY ==
[2019-05-25 19:29] VITALS: BMI 30.9
[2020-11-05] VITALS (19 sets, daily range): BP systolic 72–114; BP diastolic 40–78; PULSE 55–73; RESP 12–15; TEMP 36.2–36.8; O2SAT 95–99
--- NOTE | 2020-11-05 | DI.RAD.S_ITS ---
PROCEDURE: XR ANKLE RT MIN 3V INDICATIONS: ORIF RIGHT ANKLE TECHNIQUE: 3 views of the ankle were acquired. COMPARISON: [facility], CR, XR TIBIA FIBULA RT 2V, 11/05/2020, 18:42. [facility], CR, XR ANKLE RT 2V, 11/05/2020, 18:42. FINDINGS: Intraoperative images demonstrate medial and lateral fixation. Hardware is intact with good anatomic alignment. Fracture lucencies within the distal fibula are identified. IMPRESSION: Intraoperative fixation as above. Dictated by: Sanam Dickerson M.D. on 11/06/2020 at 7:34 Approved by: Sanam Dickerson M.D. on 11/06/2020 at 7:35
--- NOTE | 2020-11-05 | DI.RAD.S_ITS ---
PROCEDURE: XR KNEE LT 1TO2V INDICATIONS: PAIN TECHNIQUE: 2 views of the knee were acquired. COMPARISON: [facility], CR, XR KNEE LT 3V, 06/20/2019, 13:13. [facility], CR, XR KNEE LT 1TO2V, 05/25/2019, 17:25. FINDINGS: Bones: Stable appearance of the left knee total arthroplasty. No periprosthetic lucency to suggest loosening or infection. No fractures or dislocations. No suspicious bony lesions. Soft tissues: Suprapatellar joint effusion. No suspicious soft tissue calcifications. Vascular calcifications. IMPRESSION: Stable appearance of the left knee total arthroplasty. Suprapatellar joint effusion. Dictated by: Timo Tran M.D. on 11/05/2020 at 19:14 Approved by: Timo Tran M.D. on 11/05/2020 at 19:17
--- NOTE | 2020-11-05 18:35 | DI.RAD.S_ITS ---
PROCEDURE: XR ANKLE RT 2V INDICATIONS: obvious deformity, open TECHNIQUE: 2 views of the ankle were acquired. COMPARISON: [facility], , XR TIBIA FIBULA RT 2V, 11/05/2020, 18:42. FINDINGS: Bones: Comminuted fracture of the distal fibula. Medial dislocation of the distal tibia in relation to the talus. Ankle mortise is normally aligned. No suspicious bony lesions. Soft tissues: No tibiotalar joint effusion. Achilles tendon appears normal. IMPRESSION: Comminuted fracture of the distal fibula. Medial dislocation of the distal tibia in relation to the talus. Dictated by: Timo Tran M.D. on 11/05/2020 at 19:13 Approved by: Timo Tran M.D. on 11/05/2020 at 19:14
--- NOTE | 2020-11-05 18:35 | DI.RAD.S_ITS ---
PROCEDURE: XR TIBIA FUBULA RT 2V INDICATIONS: obvious deformity, open TECHNIQUE: 2 views of the tibia and fibula were acquired. COMPARISON: None. FINDINGS: Bones: Comminuted fracture of the distal fibula. Medial dislocation of the distal tibia in relation to the talus. No suspicious bony lesions. Soft tissues: No suspicious soft tissue calcifications or masses. IMPRESSION: Comminuted fracture of the distal fibula. Medial dislocation of the distal tibia in relation to the talus. Dictated by: Timo Tran M.D. on 11/05/2020 at 19:11 Approved by: Timo Tran M.D. on 11/05/2020 at 19:13
--- NOTE | 2020-11-05 18:35 | DI.RAD.S_ITS ---
PROCEDURE: XR KNEE RT 1TO2V INDICATIONS: pain with fall TECHNIQUE: 2 views of the knee were acquired. COMPARISON: [facility], CR, XR KNEE LT 3V, 06/20/2019, 13:13. [facility], CR, XR KNEE LT 1TO2V, 05/25/2019, 17:25. FINDINGS: Bones: Right total knee arthroplasty is stable in appearance. No fractures or dislocations. No suspicious bony lesions. Soft tissues: No joint effusion. No suspicious soft tissue calcifications. IMPRESSION: No acute osseous abnormality. Stable right total knee arthroplasty. Dictated by: Timo Tran M.D. on 11/05/2020 at 19:10 Approved by: Timo Tran M.D. on 11/05/2020 at 19:11
--- NOTE | 2020-11-05 18:37 | ED.FALL ---
HPI - Fall General Chief Complaint: Fall Stated Complaint: mechanical fall Time Seen by Provider: 11/05/20 18:31 Source: EMS Mode of arrival: EMS Limitations: no limitations History of Present Illness HPI Narrative: 75-year-old male former smoker with history of AFib not on blood thinners presents with a chief complaint of a syncopal episode which resulted in a significant right ankle injury with obvious deformity and bone exposure. He denies any head, neck or back pain. He denies any chest pain or shortness of breath. Denies nausea, vomiting or diarrhea. He has significant pain but denies any numbness, tingling. His tetanus is current. His last oral intake was at breakfast. He was on the toilet and stood up and was wiping himself when he felt dizzy, lightheaded and fell, he states he did not completely lose consciousness and has full recall and denies any head or neck injury. MD complaint: fall Onset (ago): hour(s) Fall from: standing Fall witnessed: no Place fall occurred: home Loss of consciousness: none Prolonged down time: no Symptoms prior to fall: lightheadedness Related Data Home Medications Medication Instructions Recorded Confirmed multivitamin [Multiple Vitamins] 1 tab PO DAILY #0 12/21/16 11/06/20 aspirin 325 mg PO BEDTIME #0 11/03/17 11/06/20 fluticasone propionate 1 spray INTRANASAL DAILY #0 11/03/17 11/06/20 trazodone 400 tab PO BEDTIME 12/10/17 11/06/20 levalbuterol HCl 3 ml INHALATION Q6H PRN 10/17/18 11/06/20 metoprolol tartrate 100 mg PO BID 10/17/18 11/06/20 Zyrtec 10 mg PO DAILY 05/23/19 11/06/20 acetaminophen-codeine 1 - 2 tab PO Q6H PRN MDD 5 10/20/19 11/06/20 clonidine HCl 0.1 - 0.2 mg PO Q8H PRN 10/20/19 11/06/20 ferrous sulfate 325 mg PO DAILY 10/20/19 11/06/20 furosemide 40 mg PO DAILY 10/20/19 11/06/20 Previous Rx's Medication Instructions Recorded levalbuterol tartrate [Xopenex HFA] 1 puff INHALATION Q4-6H PRN #15 06/23/18 gram docusate sodium [DOK] 100 mg PO BID PRN #30 cap 05/28/19 cyclobenzaprine 10 mg PO TID PRN #14 tab 02/12/20 oxycodone-acetaminophen [Percocet] 1 tab PO QID PRN #10 tab 08/17/20 Allergies Allergy/AdvReac Type Severity Reaction Status Date / Time celecoxib [CELECOXIB] Allergy Mild SWELLING Verified 11/05/20 18:37 latex [LATEX] Allergy Mild RASH Verified 11/05/20 18:37 W/EXTENDED EXPOSURE Sulfa (Sulfonamide Allergy Mild RASH Verified 11/05/20 18:37 Antibiotics) [SULFA (SULFONAMIDE ANTIBIOTICS)] varenicline [VARENICLINE] AdvReac Severe Paranoia Verified 11/05/20 18:37 buprenorphine [BUPRENORPHINE] AdvReac Mild NAUSEA, Verified 11/05/20 18:37 DIZZINESS hyoscyamine [HYOSCYAMINE] AdvReac Mild LEG Verified 11/05/20 18:37 JERKING, ANXIETY, NAUSEA W/I MINUTES Kzilzrv-Ikv-Epu Reductase AdvReac Mild WEAK Verified 11/05/20 18:37 Inhibitor MUSCLES [[id number] REDUCTASE INHIBITOR] diazepam [From Valium] AdvReac Confusion Verified 11/05/20 18:37 Review of Systems Constitutional Constitutional: Denies chills, Denies fatigue, Denies fever(s), Denies frequent falls, Denies lethargy and Denies weakness Eyes Eyes: Denies change in vision, Denies eye discharge, Denies irritation and Denies loss of vision ENT Ears, Nose, Mouth, and Throat: Denies change in voice, Denies dizziness, Denies neck pain, Denies sore throat and Denies throat swelling Cardiovascular Cardiovascular: Denies chest pain, Denies irregular heart rhythm, Denies lightheadedness, Denies palpitations, Denies dyspnea, Denies dyspnea on exertion and Denies orthopnea Respiratory Respiratory: Denies cough, Denies dyspnea, Denies dyspnea on exertion and Denies wheezing Gastrointestinal Gastrointestinal: Denies abdominal pain, Denies change in bowel habits, Denies diarrhea, Denies nausea and Denies vomiting Musculoskeletal Musculoskeletal: Reports deformity, Reports arthralgias, Reports limited range of motion, Denies neck pain and Denies numbness Integumentary/Breasts Skin/Breast: Denies pruritus, Denies erythema, Denies rash and Denies wounds Neurologic Neurologic: Denies behavioral changes, Denies confusion, Denies dizziness, Denies frequent falls, Denies loss of vision, Denies numbness and Denies weakness Psychiatric Psychiatric: Denies anxiety, Denies behavioral changes, Denies confusion, Denies depression, Denies homicidal ideation and Denies suicidal ideation Endocrine Endocrine: Denies fatigue, Denies flushing and Denies palpitations Hematologic/Lymphatic Hematologic/Lymphatic: Denies easy bruising Allergic/Immunologic Allergic/Immunologic: Denies urticaria, Denies throat swelling and Denies wheezing Patient History Medical History Achalasia Anginal pain Asthma Atrial fibrillation Cervical spinal stenosis Chronic obstructive pulmonary disease (10/23/16) COPD (chronic obstructive pulmonary disease) Coronary artery disease History of aortic dissection (~08/2007) Hypertension Ischemic cardiomyopathy Narcotic dependence Neck pain, chronic Ventricular bigeminy Surgical History H/O arthroscopic knee surgery (11/15/17) History of arthroplasty of right knee History of bilateral total hip arthroplasty History of cardiac cath (~03/2014) History of esophageal surgery History of incision and drainage (~2016) History of prior ablation treatment (~03/2017) History of surgery Hx of cholecystectomy Hx of hernia repair Hx of sinus surgery S/P CABG x 3 (~08/2007) S/P cervical spinal fusion S/P lumbar fusion Family History Mother Stroke Social History household members: spouse Smoking Status: Former smoker alcohol intake: current substance use type: does not use Smoking Status: Former smoker alcohol intake frequency: a few times a week Substance Use Type: does not use Exam Narrative Exam Narrative: GENERAL: [75] year old patient appears stated age. Well-nourished, well-developed patient, in mild distress. GCS 15 HEAD: Atraumatic. Normocephalic. EYES: Pupils equal round and reactive. Extraocular motions intact. No scleral icterus. No injection or drainage. ENT: Nose without bleeding, purulent drainage. Throat without erythema, tonsillar hypertrophy or exudate. Airway patent. NECK: Trachea midline. Non tender CARDIOVASCULAR: Regular rate and rhythm without murmurs, gallops, or rubs. RESPIRATORY: Clear to auscultation. Breath sounds equal bilaterally. No wheezes, rales, or rhonchi. GASTROINTESTINAL: Abdomen soft, non-tender, nondistended. EXTREMITIES: Obvious significant injury to right lower extremity with significant deformity, open, mildly bleeding wound with visible bone. Patient has intact dorsalis pedis and sensation, able to move toes and cap refill less than 2 seconds BACK: Nontender without deformity or crepitance. No flank tenderness. NEURO: AOx3. SKIN: No rash or erythema of visible areas Initial Vital Signs Initial Vital Signs: Vital Signs Pulse Rate 63 11/05/20 18:31 Respiratory Rate 12 11/05/20 18:31 Blood Pressure 89/61 L 11/05/20 18:31 Pulse Oximetry 97 11/05/20 18:31 Course Course Course Narrative: Very early call to Orthopedics who has reviewed images and is coming in for evaluation. Patient's pain relatively well controlled, blood pressure in the 90s, will hold off on administration of pain medication until Orthopedics arrive. Considered immediate reduction but neurovascular status is intact and this will motion early be going to the operating room upon orthopedic arrival Orders Ordered: Albuterol/Ipratropium (Albuterol/Ipratropium 3 Ml Ampul) 3 ml INH RTQ4HR PRN PRN Reason: Shortness Of Breath Beclomethasone Dipropionate (Beclomethasone 40 Mcg Inh 10.6 Gm) 1 puff INH RTBID LAUREN Diphenhydramine HCl (Diphenhydramine 25 Mg Tablet) 25 mg PO Q4HR LAUREN Last Admin: 11/06/20 05:22 Dose: 25 mg Documented by: Admin: 11/06/20 00:57 Dose: 25 mg Documented by: CHAZ Lactated Ringer's (Lactated Ringers) 1,000 mls @ 42 mls/hr IV CONT LAUREN Ketorolac Tromethamine (Ketorolac 30 Mg/Ml Vial) 30 mg IV Q6H LAUREN Last Admin: 11/06/20 02:20 Dose: 30 mg Documented by: CHAZ Levalbuterol HCl (Levalbuterol Hfa 200 Puff Inh) 2 puff INH RTQ4HR PRN PRN Reason: Shortness Of Breath Or Wheezing Loratadine (Loratadine 10 Mg Tablet) 10 mg PO DAILY [facility] Oxycodone HCl (Oxycodone Ir 5 Mg Tablet) 5 mg PO Q3HR PRN PRN Reason: Pain, Moderate (4-6) Last Admin: 11/06/20 04:10 Dose: 5 mg Documented by: Admin: 11/06/20 00:57 Dose: 5 mg Documented by: CHAZ Pantoprazole Sodium (Pantoprazole 40 Mg Vial) 40 mg IV BID [facility] Sodium Chloride (Sodium Chloride 0.9% Flush) 10 ml IV BID [facility] Last Admin: 11/06/20 02:21 Dose: 10 ml Documented by: CHAZ Sodium Chloride (Sodium Chloride 0.9% Flush) 10 ml IV PRN PRN PRN Reason: Flush Last Admin: 11/06/20 05:54 Dose: 10 ml Documented by: CHAZ Discontinued Medications Acetaminophen (Acetaminophen 325 Mg Tablet) 975 mg PO TID [facility] Albuterol (Albuterol 2.5 Mg/3 Ml Neb (Adult)) 2.5 mg INH NOW PRN PRN Reason: Coughing, Wheezing, Dyspnea Albuterol/Ipratropium (Albuterol/Ipratropium 3 Ml Ampul) 3 ml INH Q4H PRN PRN Reason: shortness of breath or wheezing Beclomethasone Dipropionate (Beclomethasone 40 Mcg Inh 10.6 Gm) 2 puff INH BID [facility] Bupivacaine HCl/Epinephrine Bitart (Bupivacaine 0.25% W/ Epi (Pf) 10 Ml Vial) 60 ml INJ NOW ONE Stop: 11/05/20 22:26 Last Admin: 11/05/20 22:25 Dose: 30 ml Documented by: MERT Cyclobenzaprine HCl (Cyclobenzaprine 10 Mg Tablet) 10 mg PO TID PRN PRN Reason: muscle spasm Docusate Sodium (Docusate 100 Mg Capsule) 100 mg PO BID [facility] Last Admin: 11/06/20 01:33 Dose: Not Given Documented by: CHAZ Enoxaparin Sodium (Enoxaparin 40 Mg/0.4 Ml Syringe) 40 mg SUBCUT DAILY [facility] Fentanyl (Fentanyl 100 Mcg/2 Ml Inj) 50 mcg IV NOW ONE Stop: 11/05/20 19:45 Last Admin: 11/05/20 19:51 Dose: 50 mcg Documented by: TANMAY Furosemide (Furosemide 40 Mg Tablet) 40 mg PO DAILY LAUREN Hydromorphone HCl (Hydromorphone 2 Mg Inj) 0 mg IV Q5M PRN PRN Reason: Pain, Severe (7-10) Hydromorphone HCl (Hydromorphone 2 Mg Inj) 0 mg IV Q5MIN PRN PRN Reason: Pain, Mild (1-3) Hydroxyzine HCl (Hydroxyzine 50 Mg/Ml Inj) 25 mg IM NOW PRN PRN Reason: Pain, Mild (1-3) Sodium Chloride (Normal Saline 0.9%) 1,000 mls @ 125 mls/hr IV CONT LAUREN Last Infusion: 11/05/20 20:40 Dose: 999 mls/hr Documented by: Infusion: 11/05/20 20:00 Dose: 999 mls/hr Documented by: Admin: 11/05/20 18:44 Dose: 125 mls/hr Documented by: LUCRECIA Cefazolin Sodium/Dextrose (Ancef) 2 gm in 100 mls @ 200 mls/hr IV NOW ONE Stop: 11/05/20 19:04 Last Infusion: 11/05/20 19:34 Dose: 0 mls/hr Documented by: Admin: 11/05/20 18:44 Dose: 200 mls/hr Documented by: LUCRECIA Lactated Ringer's (Lactated Ringers) 1,000 mls @ 42 mls/hr IV CONT LAUREN Last Admin: 11/05/20 21:00 Dose: 42 mls/hr Documented by: SIMBA Acetaminophen (Ofirmev) 1,000 mg in 100 mls @ 400 mls/hr IV NOW ONE Stop: 11/05/20 20:32 Last Infusion: 11/05/20 22:10 Dose: 0 mls/hr Documented by: Admin: 11/05/20 21:50 Dose: 400 mls/hr Documented by: PRASAD Vancomycin HCl (Vancomycin) 1,000 mg in 200 mls @ 200 mls/hr IV NOW ONE Stop: 11/05/20 23:22 Last Infusion: 11/05/20 21:36 Dose: 0 mls/hr Documented by: Admin: 11/05/20 20:58 Dose: 200 mls/hr Documented by: PRASAD Lactated Ringer's (Lactated Ringers) 1,000 mls @ 125 mls/hr IV CONT [facility] Last Admin: 11/06/20 01:32 Dose: Not Given Documented by: CHAZ Cefazolin Sodium/Dextrose (Ancef) 2 gm in 100 mls @ 200 mls/hr IV Q8H [facility] Stop: 11/06/20 11:59 Ipratropium Gerald (Ipratropium 0.5 Mg/2.5 Ml Neb) 0.5 mg INH Q6H [facility] Last Admin: 11/06/20 01:32 Dose: Not Given Documented by: CHAZ Ipratropium Gerald (Ipratropium 0.5 Mg/2.5 Ml Neb) 0.5 mg INH RTQ4HR PRN PRN Reason: Shortness Of Breath Ketorolac Tromethamine (Ketorolac 30 Mg/Ml Vial) 30 mg IV Q6HR [facility] Stop: 11/11/20 01:48 Levalbuterol HCl (Levalbuterol Hfa 200 Puff Inh) 1 puff INH Q4-6H PRN PRN Reason: shortness of breath or wheezing Metoclopramide HCl (Metoclopramide 10 Mg/2 Ml Inj) 10 mg IV NOW ONE Stop: 11/05/20 19:45 Last Admin: 11/05/20 19:51 Dose: 10 mg Documented by: TANMAY Metoprolol Tartrate (Metoprolol Ir 50 Mg Tablet) 100 mg PO BID [facility] Morphine Sulfate (Morphine 2 Mg/Ml Inj) 2 mg IV NOW ONE Stop: 11/06/20 05:37 Last Admin: 11/06/20 05:53 Dose: 2 mg Documented by: CHAZ Naloxone HCl (Naloxone 0.4 Mg/Ml Vial) 0.2 mg IV Q2MIN PRN PRN Reason: Opiate Reversal Non-Formulary Medication (Cetirizine [Zyrtec]) 10 mg PO DAILY [facility] Non-Formulary Medication (Levalbuterol Hcl) 3 ml INHALATION Q6H PRN PRN Reason: Shortness Of Breath Ondansetron HCl (Ondansetron 4 Mg/2 Ml Inj) 4 mg IV Q4HR PRN PRN Reason: Nausea And Vomiting Oxycodone HCl (Oxycodone Ir 5 Mg Tablet) 5 mg PO PACUNOW PRN PRN Reason: Mild or moderate pain Last Admin: 11/05/20 23:49 Dose: 5 mg Documented by: SIMBA Trazodone HCl (Trazodone 100 Mg Tablet) 30,000 mg PO BEDTIME LAUREN Vital Signs Vital signs: Vital Signs - 8 hr 11/05/20 18:31 Pulse Rate 63 Respiratory Rate 12 Blood Pressure 89/61 L Pulse Oximetry 97 MDM - Fall Lab Data Result diagrams: 11/06/20 05:05 11/05/20 19:00 Labs: Lab Results 11/05/20 11/05/20 11/05/20 Range/Units 18:35 18:35 19:00 WBC 11.7 H (4.5-11.0) X10^3/uL RBC 4.28 L (4.5-5.9) X10^6/uL Hgb 9.1 L (13.5-17.5) g/dL Hct 30.7 L (41-53) % MCV 71.7 L (80-100) fL MCH 21.3 L (26-34) PG MCHC 29.7 L (30-36) % RDW 21.6 H (11.6-14.8) % Plt Count 322 (150-400) X10^3/uL Neut % (Auto) 77.8 H (50-75) % Lymph % (Auto) 13.9 L (25-40) % [place] % (Auto) 7.4 (3-14) % Eos % (Auto) 0.3 L (2-4) % Baso % (Auto) 0.6 (0-2) % Neut # (Auto) 9100 H (6484-6036) /uL Lymph # (Auto) 1600 (5770-4200) /uL [place] # (Auto) 900 (0-900) /uL Eos # (Auto) 0 (0-450) /uL Baso # (Auto) 100 (0-100) /uL RBC Morphology See below Hypochromasia 1+ H Microcytosis 1+ H PT (10.1-12.7) SECONDS INR (0.9-1.3) Sodium (137-145) mmol/L Potassium (3.4-5.1) mmol/L Chloride (98-107) mmol/L Carbon Dioxide (22-32) mmol/L BUN (9-20) mg/dL Creatinine (0.66-1.25) mg/dL Estimated GFR (>60) mL/min BUN/Creatinine Ratio (6-22) Glucose (80-110) mg/dL Calcium (8.4-10.2) mg/dL Total Bilirubin (0.2-1.3) mg/dL AST (17-59) IU/L ALT (<50) IU/L Alkaline Phosphatase (38-126) U/L Total Creatine Kinase (55-170) U/L CK-MB (CK-2) CK-MB (CK-2) Rel Index Troponin I (0.01-0.034) ng/mL Total Protein (6.3-8.2) g/dL Albumin (3.5-5.0) g/dL Globulin (1.7-4.1) g/dL Albumin/Globulin Ratio (1.0-2.8) SARS-CoV-2 (PCR) Negative Negative (Negative) Blood Type Antibody Screen 11/05/20 11/05/20 11/05/20 Range/Units 19:00 19:00 19:00 WBC (4.5-11.0) X10^3/uL RBC (4.5-5.9) X10^6/uL Hgb (13.5-17.5) g/dL Hct (41-53) % MCV (80-100) fL MCH (26-34) PG MCHC (30-36) % RDW (11.6-14.8) % Plt Count (150-400) X10^3/uL Neut % (Auto) (50-75) % Lymph % (Auto) (25-40) % [place] % (Auto) (3-14) % Eos % (Auto) (2-4) % Baso % (Auto) (0-2) % Neut # (Auto) (6961-2255) /uL Lymph # (Auto) (6073-5769) /uL [place] # (Auto) (0-900) /uL Eos # (Auto) (0-450) /uL Baso # (Auto) (0-100) /uL RBC Morphology Hypochromasia Microcytosis PT 13.4 H (10.1-12.7) SECONDS INR 1.2 (0.9-1.3) Sodium 134 L (137-145) mmol/L Potassium 4.4 (3.4-5.1) mmol/L Chloride 100 (98-107) mmol/L Carbon Dioxide 25 (22-32) mmol/L BUN 21 H (9-20) mg/dL Creatinine 0.95 (0.66-1.25) mg/dL Estimated GFR > 60.0 (>60) mL/min BUN/Creatinine Ratio 22.1 H (6-22) Glucose 93 (80-110) mg/dL Calcium 9.2 (8.4-10.2) mg/dL Total Bilirubin 0.6 (0.2-1.3) mg/dL AST 26 (17-59) IU/L ALT 17 (<50) IU/L Alkaline Phosphatase 57 (38-126) U/L Total Creatine Kinase 77 (55-170) U/L CK-MB (CK-2) TNP CK-MB (CK-2) Rel Index TNP Troponin I < 0.012 (0.01-0.034) ng/mL Total Protein 6.9 (6.3-8.2) g/dL Albumin 4.2 (3.5-5.0) g/dL Globulin 2.7 (1.7-4.1) g/dL Albumin/Globulin Ratio 1.6 (1.0-2.8) SARS-CoV-2 (PCR) (Negative) Blood Type O Positive Antibody Screen Negative Imaging Data Extremity x-ray #1: Radiologist's Impression: [address] [id number] ReportSigned Patient: Karthikeyan Yo [facility]#: [id number]: 5Acct:[id number]/Sex: 75 / MDate of Service: 11/05/20Loc: EDAccession Number: [id number] Procedure: XR ankle RT 2V Ordering Provider: Allan Kaye D.O. PROCEDURE: XR ANKLE RT 2V INDICATIONS: obvious deformity, open TECHNIQUE: 2 views of the ankle were acquired. COMPARISON: [facility], CR, XR TIBIA FIBULA RT 2V, 11/05/2020, 18:42. FINDINGS: Bones: Comminuted fracture of the distal fibula. Medial dislocation of the distal tibia in relation to the talus. Ankle mortise is normally aligned. No suspicious bony lesions. Soft tissues: No tibiotalar joint effusion. Achilles tendon appears normal. IMPRESSION: Comminuted fracture of the distal fibula. Medial dislocation of the distal tibia in relation to the talus. Dictated by: Timo Tran M.D. on 11/05/2020 at 19:13 Approved by: Timo Tran M.D. on 11/05/2020 at 19:14 Extremity x-ray #2: Radiologist's Impression: [address] [id number] ReportSigned Patient: SanazKarthikeyan [facility]#: [id number]: 5Acct:[id number]/Sex: 75 / MDate of Service: 11/05/20Loc: EDAccession Number: [id number] Procedure: XR knee RT 1to2V Ordering Provider: Allan Kaye D.O. PROCEDURE: XR KNEE RT 1TO2V INDICATIONS: pain with fall TECHNIQUE: 2 views of the knee were acquired. COMPARISON: [facility], CR, XR KNEE LT 3V, 06/20/2019, 13:13. [facility], CR, XR KNEE LT 1TO2V, 05/25/2019, 17:25. FINDINGS: Bones: Right total knee arthroplasty is stable in appearance. No fractures or dislocations. No suspicious bony lesions. Soft tissues: No joint effusion. No suspicious soft tissue calcifications. IMPRESSION: No acute osseous abnormality. Stable right total knee arthroplasty. Dictated by: Timo Tran M.D. on 11/05/2020 at 19:10 Extremity x-ray #3: Radiologist's Impression: Karthikeyan Yo 75 M [address] [id number] ReportSigned Patient: Sanaz,Karthikeyan [facility]#: [id number]: 5Acct:[id number]/Sex: 75 / MDate of Service: 11/05/20Loc: EDAccession Number: [id number] Procedure: XR tibia fibula RT 2V Ordering Provider: Allan Kaye D.O. PROCEDURE: XR TIBIA FUBULA RT 2V INDICATIONS: obvious deformity, open TECHNIQUE: 2 views of the tibia and fibula were acquired. COMPARISON: None. FINDINGS: Bones: Comminuted fracture of the distal fibula. Medial dislocation of the distal tibia in relation to the talus. No suspicious bony lesions. Soft tissues: No suspicious soft tissue calcifications or masses. IMPRESSION: Comminuted fracture of the distal fibula. Medial dislocation of the distal tibia in relation to the talus. Dictated by: Timo Tran M.D. on 11/05/2020 at 19:11 Approved by: Timo Tran M.D. on 11/05/2020 at 19:1 Discharge Plan Departure Patient Disposition: Admitted to Surgery Clinical Impression: Open fracture of right ankle Qualifiers: Encounter type: initial encounter Open fracture type: open type I or II Qualified Code(s): S82.891B - Other fracture of right lower leg, initial encounter for open fracture type I or II Admit Date/Time: 11/05/20 19:41 Admit Provider: Luis Farias
[2020-11-05] MEDS: CEFAZOLIN 2 GM/100 ML FROZ.PIGGY IV (18:44)
[2020-11-05] MEDS: SODIUM CHLORIDE 0.9% 1,000 ML 125 ML IV (18:44)
[2020-11-05 18:58] LABS: COVID19 - ADMIT (NP swab/PCR) Negative (Negative)
[2020-11-05 19:14] LABS: Add Manual Diff / Slide Review NO; Basophils Absolute Auto 100 /uL (0-100); Basophils Percent Auto 0.6 % (0-2); Eosinophils Absolute Auto 0 /uL (0-450); Eosinophils Percent Auto 0.3 % (2-4); Hematocrit 30.7 % (41-53); Hemoglobin 9.1 g/dL (13.5-17.5); Lymphocytes Absolute Auto 1600 /uL (1100-4500); Lymphocytes Percent Auto 13.9 % (25-40); Mean Corpuscular HGB Conc 29.7 % (30-36); Mean Corpuscular Hemoglobin 21.3 PG (26-34); Mean Corpuscular Volume 71.7 fL (80-100); Monocytes Absolute Auto 900 /uL (0-900); Monocytes Percent Auto 7.4 % (3-14); Neutrophils Absolute Auto 9100 /uL (1500-7000); Neutrophils Percent Auto 77.8 % (50-75); Platelet Count 322 X10^3/uL (150-400); Red Blood Cell Count 4.28 X10^6/uL (4.5-5.9); Red Cell Distribution Width 21.6 % (11.6-14.8); White Blood Cell Count 11.7 X10^3/uL (4.5-11.0)
[2020-11-05 19:19] LABS: INR 1.2 (0.9-1.3); Prothrombin Time 13.4 SECONDS (10.1-12.7)
[2020-11-05 19:26] LABS: Alanine Aminotransferase 17 IU/L (<50); Albumin 4.2 g/dL (3.5-5.0); Albumin Globulin Ratio 1.6 (1.0-2.8); Alkaline Phosphatase 57 U/L (38-126); Aspartate Aminotransferase 26 IU/L (17-59); BUN Creatinine Ratio 22.1 (6-22); Bilirubin Total 0.6 mg/dL (0.2-1.3); Blood Urea Nitrogen 21 mg/dL (9-20); Calcium 9.2 mg/dL (8.4-10.2); Carbon Dioxide 25 mmol/L (22-32); Chloride 100 mmol/L (98-107); Creatine Kinase 77 U/L (55-170); Estimated Glomerular Filt Rate > 60.0 mL/min (>60); Globulin 2.7 g/dL (1.7-4.1); Glucose 93 mg/dL (80-110); HEMOLYSIS < 15 (0-50); Potassium 4.4 mmol/L (3.4-5.1); Sodium 134 mmol/L (137-145); Total Protein 6.9 g/dL (6.3-8.2)
[2020-11-05 19:36] LABS: Troponin I < 0.012 ng/mL (0.01-0.034)
[2020-11-05 19:44] LABS: COVID19 -Nasal RAPID Negative (Negative)
--- NOTE | 2020-11-05 19:49 | P.CONS_ITS ---
History of Present Illness Consult details Date Patient Seen: 11/05/20 Time Patient Seen: 19:50 Chief complaint: mechanical fall Reason for consult: Open right ankle fracutre dislocation Narrative: Patient presents on Hospital ER today after syncopal episode after rising from the toilet. Sustained a right open ankle fracture dislocation. He is a 75-year-old male with history of AFib. He denies any head, neck or back pain. He denies any chest pain or shortness of breath. Denies nausea, vomiting or diarrhea. He has significant pain but denies any numbness, tingling. His tetanus is current. His last oral intake was at breakfast. Meds Home Medications and Allergies Home Medications Medication Instructions Recorded Confirmed Type multivitamin [Multiple Vitamins] 1 tab PO DAILY #0 12/21/16 05/25/19 History aspirin 325 mg PO BEDTIME #0 11/03/17 05/25/19 History fluticasone propionate 1 spray INTRANASAL DAILY #0 11/03/17 05/25/19 History trazodone 300 tab PO BEDTIME 12/10/17 10/20/19 History levalbuterol tartrate [Xopenex HFA] 1 puff INHALATION Q4-6H PRN #15 06/23/18 05/25/19 Rx gram levalbuterol HCl 3 ml INHALATION Q6H PRN 10/17/18 10/20/19 History metoprolol tartrate 100 mg PO BID 10/17/18 05/25/19 History Zyrtec 10 mg PO DAILY 05/23/19 05/25/19 History docusate sodium [DOK] 100 mg PO BID PRN #30 cap 05/28/19 Rx acetaminophen-codeine 1 - 2 tab PO Q6H PRN MDD 5 10/20/19 10/20/19 History beclomethasone dipropionate [Qvar 2 inh INHALATION BID 10/20/19 10/20/19 History RediHaler] clonidine HCl 0.1 - 0.2 mg PO Q8H PRN 10/20/19 10/20/19 History ferrous sulfate 325 mg PO DAILY 10/20/19 History furosemide 40 mg PO DAILY 10/20/19 10/20/19 History ipratropium bromide 2.5 ml INHALATION Q6H 10/20/19 History ipratropium-albuterol 3 ml INHALATION Q4-6H PRN #90 ml 10/20/19 Rx cyclobenzaprine 10 mg PO TID PRN #14 tab 02/12/20 Rx oxycodone-acetaminophen [Percocet] 1 tab PO QID PRN #10 tab 08/17/20 Rx Allergies Allergy/AdvReac Type Severity Reaction Status Date / Time celecoxib [CELECOXIB] Allergy Mild SWELLING Verified 11/05/20 18:37 latex [LATEX] Allergy Mild RASH Verified 11/05/20 18:37 W/EXTENDED EXPOSURE Sulfa (Sulfonamide Allergy Mild RASH Verified 11/05/20 18:37 Antibiotics) [SULFA (SULFONAMIDE ANTIBIOTICS)] varenicline [VARENICLINE] AdvReac Severe Paranoia Verified 11/05/20 18:37 buprenorphine [BUPRENORPHINE] AdvReac Mild NAUSEA, Verified 11/05/20 18:37 DIZZINESS hyoscyamine [HYOSCYAMINE] AdvReac Mild LEG Verified 11/05/20 18:37 JERKING, ANXIETY, NAUSEA W/I MINUTES Dfxftzr-Kyf-Hou Reductase AdvReac Mild WEAK Verified 11/05/20 18:37 Inhibitor MUSCLES [[id number] REDUCTASE INHIBITOR] diazepam [From Valium] AdvReac Confusion Verified 11/05/20 18:37 Review of Systems Review of Systems ROS: Yes All systems reviewed with the patient and are negative except as otherwise documented Exam Vital Signs (past 8 hours): - 11/05/20 18:31 11/05/20 18:38 Pulse Rate 63 64 Respiratory Rate 12 14 Blood Pressure 89/61 L 94/51 L Pulse Oximetry 97 Narrative Exam Narrative: Open laceration over the right medial ankle. Exposed tibia. Fracture dislocation of the ankle. Sensation intact to foot. Foot is perfused but cool. No arterial bleeds. No gross contamination. Objective Labs Result Diagrams: 11/05/20 19:00 11/05/20 19:00 Labs: Laboratory Results - last 24 hr 11/05/20 11/05/20 11/05/20 18:35 18:35 19:00 WBC 11.7 H RBC 4.28 L Hgb 9.1 L Hct 30.7 L MCV 71.7 L MCH 21.3 L MCHC 29.7 L RDW 21.6 H Plt Count 322 Neut % (Auto) 77.8 H Lymph % (Auto) 13.9 L Howard % (Auto) 7.4 Eos % (Auto) 0.3 L Baso % (Auto) 0.6 Neut # (Auto) 9100 H Lymph # (Auto) 1600 [place] # (Auto) 900 Eos # (Auto) 0 Baso # (Auto) 100 PT INR Sodium Potassium Chloride Carbon Dioxide BUN Creatinine Estimated GFR BUN/Creatinine Ratio Glucose Calcium Total Bilirubin AST ALT Alkaline Phosphatase Total Creatine Kinase CK-MB (CK-2) CK-MB (CK-2) Rel Index Troponin I Total Protein Albumin Globulin Albumin/Globulin Ratio SARS-CoV-2 (PCR) Negative Negative 11/05/20 11/05/20 19:00 19:00 WBC RBC Hgb Hct MCV MCH MCHC RDW Plt Count Neut % (Auto) Lymph % (Auto) Howard % (Auto) Eos % (Auto) Baso % (Auto) Neut # (Auto) Lymph # (Auto) Howard # (Auto) Eos # (Auto) Baso # (Auto) PT 13.4 H INR 1.2 Sodium 134 L Potassium 4.4 Chloride 100 Carbon Dioxide 25 BUN 21 H Creatinine 0.95 Estimated GFR > 60.0 BUN/Creatinine Ratio 22.1 H Glucose 93 Calcium 9.2 Total Bilirubin 0.6 AST 26 ALT 17 Alkaline Phosphatase 57 Total Creatine Kinase 77 CK-MB (CK-2) TNP CK-MB (CK-2) Rel Index TNP Troponin I < 0.012 Total Protein 6.9 Albumin 4.2 Globulin 2.7 Albumin/Globulin Ratio 1.6 SARS-CoV-2 (PCR) Assessment & Plan Assessment & Plan narrative: Patient is a 75-year-old male who had a syncopal episode earlier this evening when rising from the toilet and sustained an open right fracture ankle dislocation. Patient is refusing my attempts to close reduce him in the ER. He will require close reduction and surgical stabilization in the OR. Plan for open reduction internal fixation of his bimalleolar right ankle open fracture. -Ancef 2 g q.8 hours -NPO -Nonweightbearing right lower extremity -STAT OCTOR Time Spent With Patient Time with patient: 15-24 minutes
[2020-11-05] MEDS: METOCLOPRAMIDE 10 MG/2 ML INJ IV (19:51)
[2020-11-05] MEDS: fentaNYL 100 MCG/2 ML INJ 50 MCG IV (19:51)
[2020-11-05 19:56] LABS: Hypochromasia 1+; Microcytosis 1+
[2020-11-05] MEDS: VANCOMYCIN 1,000 MG/200 ML PIGGYBACK 200 MG IV (20:58)
[2020-11-05] MEDS: LACTATED RINGERS 1,000 ML 42 ML IV (21:00)
[2020-11-05] MEDS: ACETAMINOPHEN IV 1,000 MG/100 ML VIAL 400 MG IV (21:50)
[2020-11-05] MEDS: BUPIVACAINE 0.25% W/ EPI (PF) 10 ML VIAL 60 ML INJ (22:25)
--- NOTE | 2020-11-05 23:03 | SUR.OPER ---
Supine on padded OR bed, head on pillow, arms secured on padded arm boards at <90 degrees abduction, legs uncrossed, safety belt at thigh, tape over blanket over lower left leg, right leg controlled by surgical team.
--- NOTE | 2020-11-05 23:26 | P.OP_ITS ---
Operative Date/Time/Diagnoses Date of procedure: 11/05/20 Time of procedure: 23:26 Pre-op diagnosis: Right open bimalleolar ankle fracture dislocation Post-op diagnosis: same Procedure & Clinicians Procedure: Irrigation debridement right open ankle fracture open reduction internal fixation of bimalleolar ankle fracture Same procedure as scheduled: Yes Indications: Open bimalleolar ankle fracture Surgeon: Luis Farias Click Yes if Unassisted: Yes Anesthesia Type: General Operative Notes Findings: 6 cm open wound with exposed tibia. No gross contamination no vascular compromise. Closure Type: primary Specimen(s): none sent Prosthetic devices, grafts, tissues, transplants, or devices: Villagomez [employer] Nephew distal fibular plate 7 hole 44 mm cannulated 4.0 screw Smooth tip K-wire 3x 3.5 cortical screws 1x 4.0 cancellous screw Multiple 2.7 locking screws Estimated Blood Loss (mL): 200 Blood products transfused: none Procedure in detail: Patient was met in the ER. He had a right open bimalleolar ankle fracture dislocation. He was getting up from a toilet earlier this evening when he syncopized resulting in the open fracture. Patient refused close reduction in the ER. This necessitated open reduction internal fixation irrigation debridement of his ankle in the OR tonight. Had a long discussion with the patient regarding his injury. We also discussed the risks and benefits of surgery including the risk of infection, malunion, nonunion, posttraumatic arthritis, damage to local structures such as vessels and nerves, need for future surgery, wound breakdown, DVT, PE, , etc.. Patient demonstrates understanding of the risks and benefits and wishes to proceed with irrigation debridement of right open ankle fracture as well as open reduction internal fixation of bimalleolar ankle fracture. Patient was then brought back into the operating room where he was induced under general anesthesia. The right lower extremity was then prepped and draped in normal sterile fashion with exception of using Betadine started ChloraPrep to the open fracture. A surgical time-out was performed verifying site and side of surgery as well as the name of the patient. I began by copiously irrigating the open wound with 6 L of normal saline and then reducing the ankle. There was very little gross contamination noted. What was seen was sharply debrided away. The periosteum about the fracture edges was then peeled back with a 15 blade. A dental pick was then used to clean the fracture site and a curette and normal saline was also used. A dental pick was then used to reduce the fracture. A hkagk-yo-kjuod reduction clamp was then used to hold the medial malleolus reduced. Two K-wires were then placed through the medial malleolus and I have urgent pattern. Fluoroscopy was then brought in at this point to verify our reduction as well as placement of the K-wires. The anterior K-wire head good amount of bone stock and so a 4 0 cancellous screw was placed over the top of the K-wire after measuring to 44 mm in length. The K- wire was then removed. The posterior K-wire had less bone stock so decided cut the wire and then the tip in the malleted into the bone. This would act as a an ti-rotation wire. Fluoroscopy was again brought in to verify maintenance of reduction. The medial wound was then copiously irrigated another time the saphenous vein was noted to be torn and was tied off with silk sutures both proximally and distally the wound was then closed with 2 Vicryl followed by 3-0 nylons on skin. I then turned my attention to the lateral side the margins of the lateral m alleolus were marked out a longitudinal incision centered over the lateral malleolus was then made in the skin with a 10. Blade followed by scissor dissection down to level the fracture. The fracture had a good cortical read. The periosteum at the fracture site was stripped already. A xstsm-ln-vifjj was then used to reduce the fracture. A 2 7 lag screw was then placed by technique. Clamp was then removed and fluoroscopic images were obtained verifying reduction of the fracture as well as centering of the talus underneath the tibial plafond. At this point a 7 hole lateral malleolus plate was selected and all of was then used to hold the plate to bone on the proximal segment fluoroscopy was then used to verify plate positioning proximal distal as well as anterior-posterior. Proximal cortical shaft screws were then placed these were 3.5 mm cortical screws. Next I turned my attention to the distal portion of the plate and placed a 400 cancellous screw to pull the plate down to the bone. 2.7 mm locking screws were subsequently placed. I then returned my attention proximally and placed a final 3.5 mm screw in the most proximal hole and oblique angle as a stress reduced. Final fluoroscopic images were obtained verifying reduction of the fractures as well as maintenance of the talus underneath the tibial plafond. External rotation stress views were also obtained which did not show any syndesmotic widening. The wound was then thoroughly irrigated with normal saline closed with 2-0 Vicryl in the subcutaneous layer followed by 3-0 nylon on skin. Xeroform dressings were then placed on the medial lateral wounds followed by dry sterile dressings followed by a short-leg splint. Complications: none Post-operative Condition: stable Disposition: PACU Plan for aftercare: 24 hours post-op abx, NWB RLE, tranx for DVT prophylaxis
[2020-11-05] MEDS: OXYCODONE IR 5 MG TABLET PO (23:49)
[2020-11-06] VITALS (13 sets, daily range): BP systolic 93–163; BP diastolic 53–90; PULSE 60–96; RESP 16–23; TEMP 36.3–37.1; O2SAT 93–98; BMI 28.6
--- NOTE | 2020-11-06 00:06 | SUR.PHASEI ---
Pt denied pain on arrival from OR. Later stated had some pain, states 02/15, FLACC was 0. Gave pt 5mg PO oxy with pudding and water. Tolerated without N/V. Pt stated several times that he had to urinate, reminded pt that he had a guardado that was removed just prior to transfer from OR, pt understood and agreed the sensation was from the guardado. Report to Catina MATTHEWS. Pt did have itching on arrival to floor, notified , order for PO benadryl obtained.
[2020-11-06 00:16] LABS: Hematocrit 28.6 % (41-53); Hemoglobin 8.4 g/dL (13.5-17.5)
[2020-11-06] MEDS: OXYCODONE IR 5 MG TABLET PO ×4 (00:57→13:02)
[2020-11-06] MEDS: diphenhydrAMINE 25 MG TABLET PO ×6 (00:57→22:15)
--- NOTE | 2020-11-06 02:10 | PC.NURSE ---
Pt. admitted from PACU diagnosed with ankle fracture related to fall at home. ORIF done 11/05/20, alert, awake & C/O pruritus & pain. Medicated with 25 mg. of Benadryl & 5 mg. of Oxycodone. After re-assessment stil C/O pain, JORDAN Rodríguez notified order received to give Toradol. But was not able administer now night pharmacist scheduled it at 0000, 0600 . Called night pharmacist informed her that I needed to medicate pt's. pain. Will cont. POC & monitor.
[2020-11-06] MEDS: KETOROLAC 30 MG/ML VIAL IV ×3 (02:20→13:02)
[2020-11-06] MEDS: SODIUM CHLORIDE 0.9% FLUSH 10 ML IV ×3 (02:21→20:59)
--- NOTE | 2020-11-06 05:08 | PM.CN ---
History of Present Illness Consult details Date Patient Seen: 11/06/20 Time Patient Seen: 02:10 Chief complaint: mechanical fall Reason for consult: anemia possible/GI bleed Requesting provider: Luis Farias Narrative: Patient is a 75-year-old male Karthikeyan Yo who presented to the ED with a chief complaint of a syncopal episode earlier this evening when rising from the toilet and sustained an open right fracture ankle dislocation. Patient is refused Dr. Farias's attempts to close reduce him in the ED. He required close reduction and surgical stabilization in the OR. Patient was taken to the OR by Dr. Farias for open reduction internal fixation of his bimalleolar right ankle open fracture. Dr. Rodriguez the requested that the hospitalist Service consult regarding the patient's recent issues with anemia, GI bleed and concerns related to patient's hypotension in the ER and during surgery. I examined patient on the floor after returning from PACU post surgery. Patient denied any GI bleeding within the last week or abnormal bruising, bleeding, or blood loss from his rectum, mouth, or nose, patient denied chest pain, shortness of breath, fever, body aches, chills. Patient's vitals pre-surgery temp 97.5? BP144/58, HR 65, RR 18, O2 saturation 97% on room air HGB 9.1, HCT 30.7, PLT 322, PT 13.4/INR 1.2. ED Visit Note: Eusebio SCHAFER 11/01/2020: This is a 75 year male who presents to ED with chief complain of generalized weakness and feel like fainting during ambulation. Standard syncope orders initiated during triage. Patient reports he has extensive cardiac history, aortic aneurysm and dissection with repair during cardiac bypass surgery, hypertension, cardiomyopathy, AFib, GI bleed, COPD, chronic neck and back pain. Patient is not currently on blood thinner but takes baby aspirin daily. Patient is not currently taking NSAIDs. Patient does not have additional or increasing abdominal pain the size his chronic mesenteric ischemic discomfort with eating. Patient reports he has not been feeling well over 3 months with increase in symptoms during last week. Patient does not have other cardiac related symptoms at this time. EKG normal sinus rhythm with PAC without acute ST changes. Today's CBC shows H&H of 8.6/28.1. Platelet count of 274. Unremarkable coag test results. Unremarkable chemistry test results. Cardiac enzymes were negative. When findings were shared with the patient and spouse about low blood count but not enough level for transfusion. However, would like to speak with the hospitalist for possible admission for symptomatic anemia and further evaluation of the etiology including GI bleed. Patient declined rectal exam for Hemoccult test. Patient denies even changing into a gown and moving himself from a wheelchair to bed. Spouse in patient states does not want a stay in the hospital or even staying longer since his is not able to drive dark and they would like to go home to take care of things and their animals. Repeated the importance of following up to find the reason for the anemia and spouse states patient's primary care physician Dr. Mcneill can folllow up the testings and a referral to oncologist Dr. Cardenas. Spouse state she had the same condition and Dr. Cardenas was so helpful with evaluations and treatment. They both repeated declined further exam and study or hospitalization. The patient is alert and oriented x 4 and has a cap acid to make sound medical decision at this time. Patient signed Against Medical Advice form. Patient and spouse informed taken return any time with any reasons specially worsening symptoms. Return precautions discussed with patient and spouse. Meds Home Medications and Allergies Home Medications Medication Instructions Recorded Confirmed Type multivitamin [Multiple Vitamins] 1 tab PO DAILY #0 12/21/16 11/06/20 History aspirin 325 mg PO BEDTIME #0 11/03/17 11/06/20 History fluticasone propionate 1 spray INTRANASAL DAILY #0 11/03/17 11/06/20 History trazodone 400 tab PO BEDTIME 12/10/17 11/06/20 History levalbuterol tartrate [Xopenex HFA] 1 puff INHALATION Q4-6H PRN #15 06/23/18 11/06/20 Rx gram levalbuterol HCl 3 ml INHALATION Q6H PRN 10/17/18 11/06/20 History metoprolol tartrate 100 mg PO BID 10/17/18 11/06/20 History Zyrtec 10 mg PO DAILY 05/23/19 11/06/20 History docusate sodium [DOK] 100 mg PO BID PRN #30 cap 05/28/19 11/06/20 Rx acetaminophen-codeine 1 - 2 tab PO Q6H PRN MDD 5 10/20/19 11/06/20 History clonidine HCl 0.1 - 0.2 mg PO Q8H PRN 10/20/19 11/06/20 History ferrous sulfate 325 mg PO DAILY 10/20/19 11/06/20 History furosemide 40 mg PO DAILY 10/20/19 11/06/20 History cyclobenzaprine 10 mg PO TID PRN #14 tab 02/12/20 11/06/20 Rx oxycodone-acetaminophen [Percocet] 1 tab PO QID PRN #10 tab 08/17/20 11/06/20 Rx Allergies Allergy/AdvReac Type Severity Reaction Status Date / Time celecoxib [CELECOXIB] Allergy Mild SWELLING Verified 11/05/20 18:37 latex [LATEX] Allergy Mild RASH Verified 11/05/20 18:37 W/EXTENDED EXPOSURE Sulfa (Sulfonamide Allergy Mild RASH Verified 11/05/20 18:37 Antibiotics) [SULFA (SULFONAMIDE ANTIBIOTICS)] varenicline [VARENICLINE] AdvReac Severe Paranoia Verified 11/05/20 18:37 buprenorphine [BUPRENORPHINE] AdvReac Mild NAUSEA, Verified 11/05/20 18:37 DIZZINESS hyoscyamine [HYOSCYAMINE] AdvReac Mild LEG Verified 11/05/20 18:37 JERKING, ANXIETY, NAUSEA W/I MINUTES Jmpwwyz-Hkh-Dvk Reductase AdvReac Mild WEAK Verified 11/05/20 18:37 Inhibitor MUSCLES [[id number] REDUCTASE INHIBITOR] diazepam [From Valium] AdvReac Confusion Verified 11/05/20 18:37 Review of Systems Review of Systems ROS: Yes All systems reviewed with the patient and are negative except as otherwise documented Exam Vital Signs (past 8 hours): - 11/05/20 23:30 11/05/20 23:32 11/05/20 23:37 Temperature 98.3 F Pulse Rate 72 70 73 Respiratory Rate 13 12 14 Blood Pressure 104/52 L 97/57 L 97/64 Pulse Oximetry 96 95 95 11/05/20 23:42 11/05/20 23:47 11/06/20 00:00 Temperature 97.2 F L 98.0 F Pulse Rate 62 60 68 Respiratory Rate 12 14 18 Blood Pressure 111/50 L 114/78 110/55 L Pulse Oximetry 96 95 96 11/06/20 00:30 11/06/20 00:44 11/06/20 01:00 Temperature 97.3 F L 97.5 F L Pulse Rate 60 62 65 Respiratory Rate 18 16 18 Blood Pressure 142/55 H 144/58 H Pulse Oximetry 97 96 97 11/06/20 02:00 11/06/20 03:00 Temperature 97.9 F 97.7 F Pulse Rate 70 67 Respiratory Rate 18 18 Blood Pressure 110/53 L 127/60 Pulse Oximetry 98 97 Oxygen Delivery Method Room Air Oxygen Flow Rate 0 Narrative Exam Narrative: General: Patient is a well-developed, well-nourished delightful male in no distress at this time. Lungs: Auscultation of all lung matos are clear without adventitious sounds, wheezes, rhonchi, or rales. Cardio: S1 & S2 with regular rate and rhythm with murmur, and without rubs, or gallops, no carotid bruit, no cardiac pulsations present. Abdomen: Soft nontender, negative for organomegaly, or masses. Bowel sounds are present in all 4 quadrants without guarding or rebound, no CVA tenderness. Musculoskeletal: Right lower leg bandaged Skin: Warm dry and intact without rashes, ulcerations or petechiae. Neuro: Alert and orientated x3 Psych: Patient has a well-kept appearance, appropriate affect, mental status attitude thought context and judgment are appropriate for age. Objective Labs Result Diagrams: 11/06/20 00:05 11/05/20 19:00 Labs: Laboratory Results - last 24 hr 11/05/20 11/05/20 11/05/20 18:35 18:35 19:00 WBC 11.7 H RBC 4.28 L Hgb 9.1 L Hct 30.7 L MCV 71.7 L MCH 21.3 L MCHC 29.7 L RDW 21.6 H Plt Count 322 Neut % (Auto) 77.8 H Lymph % (Auto) 13.[address] [place] % (Auto) 7.4 Eos % (Auto) 0.3 L Baso % (Auto) 0.6 Neut # (Auto) 9100 H Lymph # (Auto) [address] [facility] # (Auto) 900 Eos # (Auto) 0 Baso # (Auto) 100 RBC Morphology See below Hypochromasia 1+ H Microcytosis 1+ H PT INR Sodium Potassium Chloride Carbon Dioxide BUN Creatinine Estimated GFR BUN/Creatinine Ratio Glucose Calcium Total Bilirubin AST ALT Alkaline Phosphatase Total Creatine Kinase CK-MB (CK-2) CK-MB (CK-2) Rel Index Troponin I Total Protein Albumin Globulin Albumin/Globulin Ratio SARS-CoV-2 (PCR) Negative Negative Blood Type Antibody Screen 11/05/20 11/05/20 11/05/20 19:00 19:00 19:00 WBC RBC Hgb Hct MCV MCH MCHC RDW Plt Count Neut % (Auto) Lymph % (Auto) [facility] % (Auto) Eos % (Auto) Baso % (Auto) Neut # (Auto) Lymph # (Auto) [facility] # (Auto) Eos # (Auto) Baso # (Auto) RBC Morphology Hypochromasia Microcytosis PT 13.4 H INR 1.2 Sodium 134 L Potassium 4.4 Chloride 100 Carbon Dioxide 25 BUN 21 H Creatinine 0.95 Estimated GFR > 60.0 BUN/Creatinine Ratio 22.1 H Glucose 93 Calcium 9.2 Total Bilirubin 0.6 AST 26 ALT 17 Alkaline Phosphatase 57 Total Creatine Kinase 77 CK-MB (CK-2) TNP CK-MB (CK-2) Rel Index TNP Troponin I < 0.012 Total Protein 6.9 Albumin 4.2 Globulin 2.7 Albumin/Globulin Ratio 1.6 SARS-CoV-2 (PCR) Blood Type O Positive Antibody Screen Negative 11/06/20 00:05 WBC RBC Hgb 8.4 L Hct 28.6 L MCV MCH MCHC RDW Plt Count Neut % (Auto) Lymph % (Auto) [facility] % (Auto) Eos % (Auto) Baso % (Auto) Neut # (Auto) Lymph # (Auto) [facility] # (Auto) Eos # (Auto) Baso # (Auto) RBC Morphology Hypochromasia Microcytosis PT INR Sodium Potassium Chloride Carbon Dioxide BUN Creatinine Estimated GFR BUN/Creatinine Ratio Glucose Calcium Total Bilirubin AST ALT Alkaline Phosphatase Total Creatine Kinase CK-MB (CK-2) CK-MB (CK-2) Rel Index Troponin I Total Protein Albumin Globulin Albumin/Globulin Ratio SARS-CoV-2 (PCR) Blood Type Antibody Screen Assessment & Plan Assessment & Plan narrative: Dr. Wasserman requested the hospitalist Service consult regarding the patient's chronic anemia, GI bleed, hypotension in the setting of patient's proximal atrial fibrillation in relation to the patients surgical repair of right open ankle fracture open reduction internal fixation of bimalleolar ankle fracture. I examined the patient's post surgery resting comfortably in his room. Patient notes his last colonoscopy an EGD were 2.5 years ago and that he is as scheduled with his filter filler at the [facility] for a repeat: EGD next week and has a scheduled appointment with Hematology on November 12, 2020 for evaluation of his chronic anemia. Patients pre-surgery temp 97.5? BP144/58, HR 65, RR 18, O2 saturation 97% on room air HGB 9.1, HCT 30.7, PLT 322, PT 13.4/INR 1.2. Postsurgical vitals temp 97.9?, BP 110/53, HR 70, RR 18 % on room air, HGB 8.4, HCT twenty eight 28.6. Patient was placed on telemetry and vital signs q.4 hours patient was asymptomatic and stable throughout the night, denied signs or symptoms blood loss and demonstrated no GI bleeding. Patient placed on telemetry to monitor atrial fibrillation and rate, vital signs q.4 hours. Provided gentle hydration with LR at 42 cc/hour, a.m. labs ordered for H&H and PT and INR. Patient's blood pressure and heart rate remained stable, I held patients blood pressure meds over night and vitals improved this am: BP 127/60, HR 70, RR 18, O2 saturation 98% on rm air. Morning labs HGB 8.2, HCT 27.3, platelet count 257, PT 13.4, INR 1.2. Patient also requested his home medications for the management of his COPD ordered patient's Xopenex HFA, QVAR 40 mcg, and Atrovent along with a respiratory consult. Managed patient's pain as well through the night, follow-up and further management today with Dr. Farias. Patient is stable and recovering well from surgery without signs of symptoms of anemia, GI bleeding hypotension or uncontrolled atrial fibrillation rate. Thank you for the consultation.
[2020-11-06 05:19] LABS: Hematocrit 27.3 % (41-53); Hemoglobin 8.2 g/dL (13.5-17.5); Mean Corpuscular Hemoglobin 21.7 PG (26-34); Mean Corpuscular Volume 72.3 fL (80-100); Platelet Count 257 X10^3/uL (150-400); Red Blood Cell Count 3.78 X10^6/uL (4.5-5.9); Red Cell Distribution Width 21.9 % (11.6-14.8); White Blood Cell Count 12.5 X10^3/uL (4.5-11.0)
[2020-11-06] MEDS: MORPHINE 2 MG/ML INJ IV (05:53)
[2020-11-06] MEDS: LACTATED RINGERS 1,000 ML 42 ML IV (06:20)
--- NOTE | 2020-11-06 07:45 | P.PN_ITS ---
Subjective Subjective Date Patient Seen: 11/06/20 Time Patient Seen: 07:44 Interval history: Patient observed resting comfortably in bed this a.m. with no significant issues overnight but serious disposition concerns with relation to insufficient care support at home on discharge. Underwent medical consultation yesterday with concerns for syncopal episodes and anemia possibly related to GI bleed and NSAIDs? Denies any concerning distal foot or toe dysfunction. Exam Vital Signs (past 8 hours): - 11/06/20 07:52 Temperature 98.3 F Pulse Rate 72 Respiratory Rate 23 Blood Pressure 141/87 H Pulse Oximetry 98 Oxygen Delivery Method Room Air Oxygen Flow Rate 0 Narrative Exam Narrative: year-old observed resting comfortably in no apparent distress and alert and oriented x3. Regular heart rate and normal inspiratory effort. Splint & dressing was clean, dry and intact. Distal effected extremity was neurovascularly intact with no signs or symptoms of DVT bilaterally. Objective Labs Result Diagrams: 11/06/20 05:05 11/05/20 19:00 Labs: Laboratory Results - last 24 hr 11/05/20 11/05/20 11/05/20 18:35 18:35 19:00 WBC 11.7 H RBC 4.28 L Hgb 9.1 L Hct 30.7 L MCV 71.7 L MCH 21.3 L MCHC 29.7 L RDW 21.6 H Plt Count 322 Neut % (Auto) 77.8 H Lymph % (Auto) 13.9 L [place] % (Auto) 7.4 Eos % (Auto) 0.3 L Baso % (Auto) 0.6 Neut # (Auto) 9100 H Lymph # (Auto) 1600 [place] # (Auto) 900 Eos # (Auto) 0 Baso # (Auto) 100 RBC Morphology See below Hypochromasia 1+ H Microcytosis 1+ H PT INR Sodium Potassium Chloride Carbon Dioxide BUN Creatinine Estimated GFR BUN/Creatinine Ratio Glucose Calcium Total Bilirubin AST ALT Alkaline Phosphatase Total Creatine Kinase CK-MB (CK-2) CK-MB (CK-2) Rel Index Troponin I Total Protein Albumin Globulin Albumin/Globulin Ratio SARS-CoV-2 (PCR) Negative Negative Blood Type Antibody Screen 11/05/20 11/05/20 11/05/20 19:00 19:00 19:00 WBC RBC Hgb Hct MCV MCH MCHC RDW Plt Count Neut % (Auto) Lymph % (Auto) [place] % (Auto) Eos % (Auto) Baso % (Auto) Neut # (Auto) Lymph # (Auto) [place] # (Auto) Eos # (Auto) Baso # (Auto) RBC Morphology Hypochromasia Microcytosis PT 13.4 H INR 1.2 Sodium 134 L Potassium 4.4 Chloride 100 Carbon Dioxide 25 BUN 21 H Creatinine 0.95 Estimated GFR > 60.0 BUN/Creatinine Ratio 22.1 H Glucose 93 Calcium 9.2 Total Bilirubin 0.6 AST 26 ALT 17 Alkaline Phosphatase 57 Total Creatine Kinase 77 CK-MB (CK-2) TNP CK-MB (CK-2) Rel Index TNP Troponin I < 0.012 Total Protein 6.9 Albumin 4.2 Globulin 2.7 Albumin/Globulin Ratio 1.6 SARS-CoV-2 (PCR) Blood Type O Positive Antibody Screen Negative 11/06/20 11/06/20 00:05 05:05 WBC 12.5 H RBC 3.78 L Hgb 8.4 L 8.2 L Hct 28.6 L 27.3 L MCV 72.3 L MCH 21.7 L MCHC 30.0 RDW 21.9 H Plt Count 257 Neut % (Auto) Lymph % (Auto) [place] % (Auto) Eos % (Auto) Baso % (Auto) Neut # (Auto) Lymph # (Auto) [place] # (Auto) Eos # (Auto) Baso # (Auto) RBC Morphology Hypochromasia Microcytosis PT INR Sodium Potassium Chloride Carbon Dioxide BUN Creatinine Estimated GFR BUN/Creatinine Ratio Glucose Calcium Total Bilirubin AST ALT Alkaline Phosphatase Total Creatine Kinase CK-MB (CK-2) CK-MB (CK-2) Rel Index Troponin I Total Protein Albumin Globulin Albumin/Globulin Ratio SARS-CoV-2 (PCR) Blood Type Antibody Screen [facility] Medical History Achalasia Anginal pain Asthma Atrial fibrillation Cervical spinal stenosis Chronic obstructive pulmonary disease (10/23/16) COPD (chronic obstructive pulmonary disease) Coronary artery disease History of aortic dissection (~08/2007) Hypertension Ischemic cardiomyopathy Narcotic dependence Neck pain, chronic Ventricular bigeminy Surgical History H/O arthroscopic knee surgery (11/15/17) History of arthroplasty of right knee History of bilateral total hip arthroplasty History of cardiac cath (~03/2014) History of esophageal surgery History of incision and drainage (~2016) History of prior ablation treatment (~03/2017) History of surgery Hx of cholecystectomy Hx of hernia repair Hx of sinus surgery S/P CABG x 3 (~08/2007) S/P cervical spinal fusion S/P lumbar fusion Family History Mother Stroke Social History household members: spouse Smoking Status: Former smoker alcohol intake: current substance use type: does not use Assessment & Plan Post-op Postoperative Procedures: Procedures Operation Date: 11/05/20 21:00 Actual Procedures Side Surgeon p ORIF Ankle Fracture Right Luis Farias MD Postoperative day: 1 Postoperative status: marginal pain control and other (Disposition concerns for inadequate care at home.) Postoperative plan: routine post-op care and other (Discharge planning) Postoperative plan narrative: Medical clearance for Lovenox for next 6 weeks. Nonweightbearing on right ankle for 6 weeks. Keep splint and dressing clean, dry and intact. Social work and discharge planning for disposition when cleared by Medicine. Follow-up in clinic in 2 weeks for re-evaluation. Quality VTE Deep Vein Thrombosis/Pulmonary Embolism Present on Admission: No
[2020-11-06] MEDS: LORATADINE 10 MG TABLET PO (09:19)
[2020-11-06] MEDS: BECLOMETHASONE 40 MCG INH 10.6 GM 1 PUFF INH (09:19)
[2020-11-06] MEDS: PANTOPRAZOLE 40 MG VIAL IV (09:19)
--- NOTE | 2020-11-06 10:57 | ONC.MSW ---
T/C-Care Coordination/Inpt Activity: HAM ROLLING MACHINE OPERATOR spoke with pt from his inpt room, he is anxious about possibly being d/c'd today, and feels that the hospital needs to address his severe anemia prior to d/c. He requested Dr. Melgar see him in acute care. HAM ROLLING MACHINE OPERATOR spoke with Dr. Melgar, who also reviewed pt's last labs, and feels that he won't be able to make time today to see him inpt, however pt is already scheduled for next Wednesday, 11/12, and that he feels pt will be okay until that visit for next steps. Dr. Melgar is also deferring to the hospitalist to address the anemia at this time. Updated Zoë in Care Management.
--- NOTE | 2020-11-06 11:09 | CM.DANOTE ---
Addendum entered by Betty Soto R.N. 11/06/20 12:01: Spoke to PATRICK Quezada in ortho. Stated that patient will most likely be non-weight bearing, and may need residential. Let him know that patient originally refused residential, but yet, he hasn't worked with P.T. Let him know that this case filler will meet up with him again today, and will collaborate with P.T. team. He was noting anxiety about going to rehab, due to an experience that his had with a friend. He may also need Lovenox injections. Will speak to Mary Jane Mendoza, and see what he recommends with patient. has been at bedside. Original Note: DCP: Case received, EMR reviewed and met with patient. Introduced self and role. Was able to obtain some information from patient regarding his baseline activity level prior to fall and surgery, as well as his current living situation at home. DCP assessment completed with information currently available. Patient is a 75 year old male who admitted yesterday to the care of the hospitalist/orthopedic team. PCP: Dr. Tavera. Payer: confirmed: [facility]. Patient came to the hospital after a ground level fall that occurred at home due to a syncopal episode. Patient was diagnosed with a comminuted fracture of his fibula, and had surgery yesterday. He also has history of anemia/GI Bleed. He is supposed to start going to oncology here at [facility] with Dr. Aguilera for iron infusions. Patient also has a cardiac history. Met with patient in his room. He was sitting up in bed, some anxiety noted. Confirmed that he has been independent at home, but his has anxiety issues at home, but don't tell anybody. Patient stated that he also has a brother that is a physician. Stated. I'm not going anywhere until they take care of my anemia. Mentioned skilled facility due to fracture, stated, he will not go to a facility. CELESTINA Carr at [facility] stated that oncologist is not coming to see patient. Patient was under the assumption that Dr. Aguilera would be coming at approximately 1600. She stated that patient has an appointment set up at oncology on November 12. Mentioned this to Dr. Hickman during rounds, that patient is concerned about being discharged with his medical problems. He indicated that he fell off of the toilet, due to his weakness, where he inherited a fibula fracture. He will be seen by orthopedics today as well. He will also work with Jocelyne VORA to continue to follow and will be available for any resources needed. Home is the plan. Home Health could possibly be an option if deemed home bound. Betty Soto RN/[employer] Developer
--- NOTE | 2020-11-06 12:37 | PT.IIE ---
Current Diagnoses Displaced bimalleolar fracture of right lower leg, initial encounter for open fracture type I or II (11/05/20) Surgery Performed Operation Date: 11/05/20 21:00 Actual Procedures p ORIF Ankle Fracture(Right) - Luis Farias MD Surgical History (Last Reviewed 11/06/20 @ 05:27 by [facility] H/O arthroscopic knee surgery (11/15/17) History of arthroplasty of right knee History of bilateral total hip arthroplasty History of cardiac cath (~03/2014) History of esophageal surgery History of incision and drainage (~2016) History of prior ablation treatment (~03/2017) History of surgery Hx of cholecystectomy Hx of hernia repair Hx of sinus surgery S/P CABG x 3 (~08/2007) S/P cervical spinal fusion S/P lumbar fusion Medical History (Last Reviewed 11/06/20 @ 05:27 [facility] Achalasia Anginal pain Asthma Atrial fibrillation Cervical spinal stenosis Chronic obstructive pulmonary disease (10/23/16) COPD (chronic obstructive pulmonary disease) Coronary artery disease History of aortic dissection (~08/2007) Hypertension Ischemic cardiomyopathy Narcotic dependence Neck pain, chronic Ventricular bigeminy Physical Therapy Inpatient Evaluation/Re-Eval M1 PT/OT-IP Prior Functional Status Start: 11/06/20 08:42 Freq: NEEDED Status: Active Protocol: Document 11/06/20 12:11 (Rec: 11/06/20 12:37 [id number]) Medical Review Prior Functional Status Medical History Reviewed Yes Diet/Fluid Consistency Regular Communication no deficits noted Mobility and Gait pt uses cane sometimes and furniture for support d/t his anemia. stated pt tends to have syncopal episode / feel lightheaded during transfers and long walk. Pt had multiple falls d/t syncopal episodes. Activities of Daily Living and IADL's IND for ADLs and does most of the driving. Prior Functional Level (Other details) pt had L TKA in 2019. Social History Household Members spouse Living Arrangements House Number of Floors (Floors) Two Floors Number of Stairs To Enter/Railing? 3 wide steps with L rail. ( walk can fit between steps) Daylight saying house and pt live on main floor Home Environment Standard Height Toilet,Walk in Shower,Tub/Shower Home Equipment Front Wheel Walker,Four Wheel Walker,Straight Cane,Manual Wheelchair,Hand Held Shower, Sock Aid,Grab Bars In Shower Employment Status Retired Additional Social History Comment pt lives with his and 2 dogs. is retired and will be available to assist 01/03. M2 PT-IP Current Condition Start: 11/06/20 08:42 Freq: NEEDED Status: Active Protocol: Document 11/06/20 12:11 (Rec: 11/06/20 12:37 [id number]) Physical Therapy Current Condition Current Condition Evaluation Date 11/06/20 Treatment Diagnosis R ankle ORIF s/p fall from syncopal episode, difficulty in walking Onset Date 11/05/20 Weight Bearing Status Weight Bearing Status Non-Weight Bearing M3 PT-IP Subjective Start: 11/06/20 08:42 Freq: NEEDED Status: Active Protocol: Document 11/06/20 12:11 HH (Rec: 11/06/20 12:37 [id number]) Subjective Physical Therapy Visit Type Type Initial Evaluation Visit Start Time 09:45 Visit Stop Time 10:20 Total Visit Minutes 35 Notes attended session. 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 Therapy Pain Assessment Pain When Pain Assessed During Mobility Pain Present Pain Present Pain Reported Location Right Foot Intensity 3 Scale Used Numeric (0 - 10) Description Acute Pain Management Techniques Timing of Activity with Medications M4 PT-IP Mobility and Gait Start: 11/06/20 08:42 Freq: NEEDED Status: Active Protocol: Document 11/06/20 12:11 HH (Rec: 11/06/20 12:37 [id number]) PT-Bed Mobility Assessment Supine to Sit Supine to Sit Standby Assistance Scooting Scooting to Edge of Bed Standby Assistance PT-Transfer Assessment Sit to and From Stand Sit to and from Stand Contact Guard Assistance Equipment Transfer Assistive Device Gait Belt,Front Wheeled Walker Orthotic/Prosthetic Devices or Brace: No Transfers Transfer Destination Bed,Chair,Bedside Commode Transfer Technique Stand Pivot Transfer Ability Level of Assist Contact Guard Assistance,Use of Upper Extremities Comments Mobility Comments pt was in bed upon PT arrival. Pt appeared to be very easily distracted and at bedside stated this is mostly d/t his common reaction to pain medication. Pt requested to use BS for toileting and he got to long sit position with SBA and able to pivoted himself to EOB on R. BP = 106/ 84. Educated pt his NWB status and he shows good understanding of it. He stood up with FWW CGA followed by a stable stand pivot transfer to BSC on his L side. BP seated = 134/54. Pt voided and stood up again for 1 min and BP at 89/51 and he felt lightheaded. Pt stand pivoted back to his back CGA and rested. BP went back to 118/80 within 2 mins. He stood up again for 1 min and BP at 125 /60 followed by stand pivot with FWW CGA to his R side for bedside chair. He then sat down with good descend. BP at 108/57 and 142/ 69 after 2 mins. Pt denies discomfort/ symptoms. Left call light and his R LE elevated. Notified nursing his BP findings. Gait Assessment Comments Gait Comments unable to walk Stair Climbing Assessment Comments Stair Climbing Comments unable to walk yet M5 PT-IP Objective Assessments Start: 11/06/20 08:42 Freq: NEEDED Status: Active Protocol: Document 11/06/20 12:11 (Rec: 11/06/20 12:37 [id number]) Orientation Orientation/Cognition Level of Alertness Alert Orientation Name,Age,Birthday,Month,Date, Year,Day of Week,Place, Situation Language Function Ability No Deficits Noted Safety Awareness Decreased Safety Awareness Memory Description No Deficits Noted Comments pt appears somewhat impulsive and very easily distracted Gross Range of Motion Upper Extremity ROM Assessment Within Functional Limits Lower Extremity ROM Assessment Right Impaired Strength Upper Extremity Strength Assessment Within Functional Limits Lower Extremity Strength Assessment Right Impaired Hip 4/5 Knee 4-/5 Coordination Assessment Gross Coordination Gross Coordination WNL Sensation Assessment Sensation Gross Sensation WNL Muscle Tone Muscle Tone WNL Yes M6 PT-IP Treatment Start: 11/06/20 08:42 Freq: NEEDED Status: Active Protocol: Document 11/06/20 12:11 (Rec: 11/06/20 12:37 [id number]) Physical Therapy Treatment Education Education Provided Precautions,Weight Bearing Status,Post-Op Packet,Safety M7 PT-IP Assessment and Plan Start: 11/06/20 08:42 Freq: NEEDED Status: Active Protocol: Document 11/06/20 12:11 (Rec: 11/06/20 12:37 [id number]) PT Summary Assessment and Plan Potential Rehabilitation Potential Good Status of Condition at Evaluation Stable Summary Impairments Pain,ROM,Strength,Balance, Cognition,Bed Mobility, Transfers,Gait,Activity Tolerance Assessment Summary Karthikeyan is a 75yo male s/p POD1 R ankle ORIF (NWB) after R ankle bimalleolar fx from a syncopal fall. Pt is anemic with multiple syncopal episodes from the past who fell and need support often as his stated. Pt normally can walk without AD/ support but does need it sometimes d/t his syncopal episodes. Upon assessment, pt appears to be easily distracted and impulsive but he was able to complete stand pivot transfer with FWW CGA among BSC, bedside chair and bed. However , his BP flutuates significantly with positions which create a fall risk. Pt does not want to go SNF and him and his believe DC home with home health is the best option. Recommended them to acquire BSC, shower chair, grab bars to improve home safety. Goals Bed Mobility Goal Standby Assistance Transfer Goal Standby Assistance,Front Wheeled Walker Gait Goal Standby Assistance,Front Wheel Walker Gait Distance 15 Other Goals 3 wide steps with L rail (wide enough for FWW access) Days to Meet Goals 5 Frequency of Treatment Frequency Of Treatment Twice a Day Treatment Plan Physical Therapy Treatment Plan Bed Mobility Training,Transfer Training,Gait Training, Therapeutic Exercise,Balance Retraining,Post Op Education, Discharge Planning,Hot or Cold Pack,Neuromuscular Re-ed Other Recommendations and Next Treatment transfer training with BP Focus monitoring gait training if possible Precautions Other Precautions NWB RLE Recommendations To Nursing Amount of Assist Needed 1 Person Assist Discharge Recommendations PT Discharge Recommendations Home with 01/03 Assist Available,Home Health Equipment Needed for Home Before BSC, shower chair, raised Discharge toilet seat, Transportation Needs at Discharge Private Vehicle
--- NOTE | 2020-11-06 12:43 | PT.IIE ---
Current Diagnoses Displaced bimalleolar fracture of right lower leg, initial encounter for open fracture type I or II (11/05/20) Surgery Performed Operation Date: 11/05/20 21:00 Actual Procedures p ORIF Ankle Fracture(Right) - Luis Farias MD Surgical History (Last Reviewed 11/06/20 @ 05:27 [facility] H/O arthroscopic knee surgery (11/15/17) History of arthroplasty of right knee History of bilateral total hip arthroplasty History of cardiac cath (~03/2014) History of esophageal surgery History of incision and drainage (~2016) History of prior ablation treatment (~03/2017) History of surgery Hx of cholecystectomy Hx of hernia repair Hx of sinus surgery S/P CABG x 3 (~08/2007) S/P cervical spinal fusion S/P lumbar fusion Medical History (Last Reviewed 11/06/20 @ 05:27 [facility] Achalasia Anginal pain Asthma Atrial fibrillation Cervical spinal stenosis Chronic obstructive pulmonary disease (10/23/16) COPD (chronic obstructive pulmonary disease) Coronary artery disease History of aortic dissection (~08/2007) Hypertension Ischemic cardiomyopathy Narcotic dependence Neck pain, chronic Ventricular bigeminy Physical Therapy Inpatient Evaluation/Re-Eval M1 PT/OT-IP Prior Functional Status Start: 11/06/20 08:42 Freq: NEEDED Status: Active Protocol: Document 11/06/20 10:45 HH (Rec: 11/06/20 12:37 [id number]) Medical Review Prior Functional Status Medical History Reviewed Yes Diet/Fluid Consistency Regular Communication no deficits noted Mobility and Gait pt uses cane sometimes and furniture for support d/t his anemia. stated pt tends to have syncopal episode / feel lightheaded during transfers and long walk. Pt had multiple falls d/t syncopal episodes. Activities of Daily Living and IADL's IND for ADLs and does most of the driving. Prior Functional Level (Other details) pt had L TKA in 2019. Social History Household Members spouse Living Arrangements House Number of Floors (Floors) Two Floors Number of Stairs To Enter/Railing? 3 wide steps with L rail. ( walk can fit between steps) Daylight saying house and pt live on main floor Home Environment Standard Height Toilet,Walk in Shower,Tub/Shower Home Equipment Front Wheel Walker,Four Wheel Walker,Straight Cane,Manual Wheelchair,Hand Held Shower, Sock Aid,Grab Bars In Shower Employment Status Retired Additional Social History Comment pt lives with his and 2 dogs. is retired and will be available to assist 01/03. M2 PT-IP Current Condition Start: 11/06/20 08:42 Freq: NEEDED Status: Active Protocol: Document 11/06/20 10:45 HH (Rec: 11/06/20 12:37 [id number]) Physical Therapy Current Condition Current Condition Evaluation Date 11/06/20 Treatment Diagnosis R ankle ORIF s/p fall from syncopal episode, difficulty in walking Onset Date 11/05/20 Weight Bearing Status Weight Bearing Status Non-Weight Bearing M3 PT-IP Subjective Start: 11/06/20 08:42 Freq: NEEDED Status: Active Protocol: Document 11/06/20 10:45 HH (Rec: 11/06/20 12:37 [id number]) Subjective Physical Therapy Visit Type Type Initial Evaluation Visit Start Time 10:45 Visit Stop Time 11:20 Total Visit Minutes 35 Notes attended session. Pt is on a cast at R ankle Number of ROAD DESIGN ENGINEER Visits 0 Physical Therapy Visit Comments Patient Comments I want to use the bathroom Patient Goals To return home with . Therapy Pain Assessment Pain When Pain Assessed During Mobility Pain Present Pain Present Pain Reported Location Right Foot Intensity 3 Scale Used Numeric (0 - 10) Description Acute Pain Management Techniques Timing of Activity with Medications M4 PT-IP Mobility and Gait Start: 11/06/20 08:42 Freq: NEEDED Status: Active Protocol: Document 11/06/20 10:45 HH (Rec: 11/06/20 12:37 [id number]) PT-Bed Mobility Assessment Supine to Sit Supine to Sit Standby Assistance Scooting Scooting to Edge of Bed Standby Assistance PT-Transfer Assessment Sit to and From Stand Sit to and from Stand Contact Guard Assistance Equipment Transfer Assistive Device Gait Belt,Front Wheeled Walker Orthotic/Prosthetic Devices or Brace: No Transfers Transfer Destination Bed,Chair,Bedside Commode Transfer Technique Stand Pivot Transfer Ability Level of Assist Contact Guard Assistance,Use of Upper Extremities Comments Mobility Comments pt was in bed upon PT arrival. Pt appeared to be very easily distracted and at bedside stated this is mostly d/t his common reaction to pain medication. Pt requested to use BS for toileting and he got to long sit position with SBA and able to pivoted himself to EOB on R. BP = 106/ 84. Educated pt his NWB status and he shows good understanding of it. He stood up with FWW CGA followed by a stable stand pivot transfer to BSC on his L side. BP seated = 134/54. Pt voided and stood up again for 1 min and BP at 89/51 and he felt lightheaded. Pt stand pivoted back to his back CGA and rested. BP went back to 118/80 within 2 mins. He stood up again for 1 min and BP at 125 /60 followed by stand pivot with FWW CGA to his R side for bedside chair. He then sat down with good descend. BP at 108/57 and 142/ 69 after 2 mins. Pt denies discomfort/ symptoms. Left call light and his R LE elevated. Notified nursing his BP findings. Gait Assessment Comments Gait Comments unable to walk Stair Climbing Assessment Comments Stair Climbing Comments unable to walk yet M5 PT-IP Objective Assessments Start: 11/06/20 08:42 Freq: NEEDED Status: Active Protocol: Document 11/06/20 10:45 HH (Rec: 11/06/20 12:37 [id number]) Orientation Orientation/Cognition Level of Alertness Alert Orientation Name,Age,Birthday,Month,Date, Year,Day of Week,Place, Situation Language Function Ability No Deficits Noted Safety Awareness Decreased Safety Awareness Memory Description No Deficits Noted Comments pt appears somewhat impulsive and very easily distracted Gross Range of Motion Upper Extremity ROM Assessment Within Functional Limits Lower Extremity ROM Assessment Right Impaired Strength Upper Extremity Strength Assessment Within Functional Limits Lower Extremity Strength Assessment Right Impaired Hip 4/5 Knee 4-/5 Coordination Assessment Gross Coordination Gross Coordination WNL Sensation Assessment Sensation Gross Sensation WNL Muscle Tone Muscle Tone WNL Yes M6 PT-IP Treatment Start: 11/06/20 08:42 Freq: NEEDED Status: Active Protocol: Document 11/06/20 10:45 HH (Rec: 11/06/20 12:37 [id number]) Physical Therapy Treatment Education Education Provided Precautions,Weight Bearing Status,Post-Op Packet,Safety M7 PT-IP Assessment and Plan Start: 11/06/20 08:42 Freq: NEEDED Status: Active Protocol: Document 11/06/20 10:45 (Rec: 11/06/20 12:37 [id number]) PT Summary Assessment and Plan Potential Rehabilitation Potential Good Status of Condition at Evaluation Stable Summary Impairments Pain,ROM,Strength,Balance, Cognition,Bed Mobility, Transfers,Gait,Activity Tolerance Assessment Summary Karthikeyan is a 75yo male s/p POD1 R ankle ORIF (NWB) after R ankle bimalleolar fx from a syncopal fall. Pt is anemic with multiple syncopal episodes from the past who fell and need support often as his stated. Pt normally can walk without AD/ support but does need it sometimes d/t his syncopal episodes. Upon assessment, pt appears to be easily distracted and impulsive but he was able to complete stand pivot transfer with FWW CGA among BSC, bedside chair and bed. However , his BP flutuates significantly with positions which create a fall risk. Pt does not want to go SNF and him and his believe DC home with home health is the best option. Recommended them to acquire BSC, shower chair, grab bars to improve home safety. Goals Bed Mobility Goal Standby Assistance Transfer Goal Standby Assistance,Front Wheeled Walker Gait Goal Standby Assistance,Front Wheel Walker Gait Distance 15 Other Goals 3 wide steps with L rail (wide enough for FWW access) Days to Meet Goals 5 Frequency of Treatment Frequency Of Treatment Twice a Day Treatment Plan Physical Therapy Treatment Plan Bed Mobility Training,Transfer Training,Gait Training, Therapeutic Exercise,Balance Retraining,Post Op Education, Discharge Planning,Hot or Cold Pack,Neuromuscular Re-ed Other Recommendations and Next Treatment transfer training with BP Focus monitoring gait training if possible Precautions Other Precautions NWB RLE Recommendations To Nursing Amount of Assist Needed 1 Person Assist Discharge Recommendations PT Discharge Recommendations Home with 01/03 Assist Available,Home Health Equipment Needed for Home Before BSC, shower chair, raised Discharge toilet seat, Transportation Needs at Discharge Private Vehicle
[2020-11-06] MEDS: ENOXAPARIN 40 MG/0.4 ML SYRINGE SUBCUT (13:02)
--- NOTE | 2020-11-06 13:45 | PT.IPTN ---
Current Diagnoses Displaced bimalleolar fracture of right lower leg, initial encounter for open fracture type I or II (11/05/20) Surgery Performed Operation Date: 11/05/20 21:00 Actual Procedures p ORIF Ankle Fracture(Right) - Luis Farias MD Physical Therapy Treatment Note M2 PT-IP Current Condition Start: 11/06/20 08:42 Freq: NEEDED Status: Active Protocol: Document 11/06/20 10:45 HH (Rec: 11/06/20 12:37 HH [id number]) Physical Therapy Current Condition Current Condition Evaluation Date 11/06/20 Treatment Diagnosis R ankle ORIF s/p fall from syncopal episode, difficulty in walking Onset Date 11/05/20 Weight Bearing Status Weight Bearing Status Non-Weight Bearing M3 PT-IP Subjective Start: 11/06/20 08:42 Freq: NEEDED Status: Active Protocol: Document 11/06/20 13:20 SP (Rec: 11/06/20 14:31 SP [id number]) Subjective Physical Therapy Visit Type Type Treatment Note Visit Start Time 13:20 Visit Stop Time 13:45 Total Visit Minutes 25 Notes attended session, observation only. Orthostatic vitals: seated BP 113/54, HR 81, SaO2 96% on RA stand BP 111/46, HR 85- nonsymptomatic Number of PUMP ERECTOR Visits 1 Physical Therapy Visit Comments Patient Comments Pt willing to work with therapy. I am having 8/10 pain, just got pain med not long ago but want to get the therapy session over with. Patient Goals To return home with after anemia is addressed. Therapy Pain Assessment Pain When Pain Assessed At Rest Pain Present Pain Present Pain Reported Location Right Foot Intensity 8 Scale Used 8/10 at rest, 9/10 with mobility Description Acute Pain Management Techniques Distraction,Modification of Treatment,Re-positioning M4 PT-IP Mobility and Gait Start: 11/06/20 08:42 Freq: NEEDED Status: Active Protocol: Document 11/06/20 13:20 SP (Rec: 11/06/20 14:31 SP [id number]) PT-Transfer Assessment Sit to and From Stand Sit to and from Stand Contact Guard Assistance,Use of Upper Extremities Equipment Transfer Assistive Device Gait Belt,Front Wheeled Walker Orthotic/Prosthetic Devices or Brace: No Transfers Transfer Destination Bed,Chair Transfer Technique Stand Hop Pivot Transfer Ability Level of Assist Contact Guard Assistance,Use of Upper Extremities Comments Mobility Comments Pt seated in chair with BLE elevated on room cushions when arrived, assessed orthostatic vitals sitting/ standing. Scoot to EOchair SBA, sit<> stand CGA using BUE on chair arms and fWW, pt able to maintain NWB on RLE throughout tx. Step hop transfer on LLE using fWW CGA chair<> bed, cue x1 for reaching back for slow descent. Pt was seated back in chair with RLE elevated with call light and all needs in reach in room when left. Gait Assessment Gait Gait Assistance Required: Contact Guard Assist,1 Person Assist Distance (Feet) 2 Able to Maintain Weight Bearing Status Yes During Gait Assistive Devices Assistive Device Gait Belt,Front Wheeled Walker Orthotic/Prosthetic Devices or Brace: Yes Comments Gait Comments Pt Step hop on LLE transfer only chair<> bed using fWW, CGA. Stair Climbing Assessment Comments Stair Climbing Comments Unable to assess due to pain and pt declined assessment due to anemia and reported family will have a w/c at [facility] to assist him in w/c up 3 platform step so doesn't have to complete. PT-Balance Assessment Sitting Balance and Reactions Static Sitting Balance Ability Normal Dynamic Sitting Balance Ability Normal Standing Balance and Reactions Static Standing Balance Ability Fair Dynamic Standing Balance Ability Fair Device Used FWW M5 PT-IP Objective Assessments Start: 11/06/20 08:42 Freq: NEEDED Status: Active Protocol: Document 11/06/20 10:45 HH (Rec: 11/06/20 12:37 [id number]) Orientation Orientation/Cognition Level of Alertness Alert Orientation Name,Age,Birthday,Month,Date, Year,Day of Week,Place, Situation Language Function Ability No Deficits Noted Safety Awareness Decreased Safety Awareness Memory Description No Deficits Noted Comments pt appears somewhat impulsive and very easily distracted Gross Range of Motion Upper Extremity ROM Assessment Within Functional Limits Lower Extremity ROM Assessment Right Impaired Strength Upper Extremity Strength Assessment Within Functional Limits Lower Extremity Strength Assessment Right Impaired Hip 4/5 Knee 4-/5 Coordination Assessment Gross Coordination Gross Coordination WNL Sensation Assessment Sensation Gross Sensation WNL Muscle Tone Muscle Tone WNL Yes M6 PT-IP Treatment Start: 11/06/20 08:42 Freq: NEEDED Status: Active Protocol: Document 11/06/20 13:20 SP (Rec: 11/06/20 14:31 SP [id number]) Physical Therapy Treatment Exercises Exercises Seated Knee Flexion/Extension Education Education Provided Precautions,Weight Bearing Status,Safety Other Treatments Other Treatment Performed Instructed seated marching x10 M7 PT-IP Assessment and Plan Start: 11/06/20 08:42 Freq: NEEDED Status: Active Protocol: Document 11/06/20 13:20 SP (Rec: 11/06/20 14:31 SP [id number]) PT Summary Assessment and Plan Potential Rehabilitation Potential Good Status of Condition at Evaluation Stable Summary Impairments Pain,ROM,Strength,Balance, Cognition,Bed Mobility, Transfers,Gait,Activity Tolerance Assessment Summary Sit<>stand x3 total, step hop on LLE using fWW, CGA maintaining NWB RLE. Pt is little impulsive repositioning fWW, stable and able to complete stand pivot transfer with FWW CGA chair<> bed. BP was stable but history of flutuation significantly with positions which create a fall risk. Pt does not want to go SNF and him and his believe DC home with home health is the best option. Recommended them to acquire BSC, shower chair, grab bars to improve home safety. Will continue to assess progress. Goals Bed Mobility Goal Standby Assistance Transfer Goal Standby Assistance,Front Wheeled Walker Gait Goal Standby Assistance,Front Wheel Walker Gait Distance 15 Other Goals 3 wide steps with L rail (wide enough for FWW access), if able. Pt alternate plan to have family assist backward up 3 platform steps in w/c acquired. Days to Meet Goals 5 Frequency of Treatment Frequency Of Treatment Twice a Day Treatment Plan Physical Therapy Treatment Plan Bed Mobility Training,Transfer Training,Gait Training, Therapeutic Exercise,Balance Retraining,Post Op Education, Discharge Planning,Hot or Cold Pack,Neuromuscular Re-ed Other Recommendations and Next Treatment monitor orthos, gait Focus traninging if possible. If able, assess 3 PF steps otherwise will have w/c for family to assist retro when returns home. Precautions Other Precautions NWB RLE Recommendations To Nursing Amount of Assist Needed 1 Person Assist Discharge Recommendations PT Discharge Recommendations Home with 01/03 Assist Available,Home Health Equipment Needed for Home Before BSC, shower chair, raised Discharge toilet seat; family acquired w /c for self mobility. Transportation Needs at Discharge Private Vehicle
--- NOTE | 2020-11-06 13:52 | PC.NURSE ---
Addendum entered by Yesenia Singh R.N. 11/06/20 15:47: this afternoon, pt refusing telemetry. MD [facility] declining requests for IV morphine. Increased oxycodone to 10 mg. Original Note: Pt. A&O x3. Able to transport NWB on RLE to [facility]. +CMS to RLE, LS CTA, BBB/1 degree AV block on Telemetry. PT working with patient this a.m reported + orhtostatic BP 134/86 HR 60 BSC to standing 89/51 HR 63, patient asymptomatic. Upon recheck this afternoon, orthostatic BP checked from sitting 113/53 HR 81 then to standing 11/46 HR 81. Patient drinking adequate fluid and 90-100% of meals. Although socializing and participating with daily care activities he continues to report pain /10. Requesting for IV morphine PRN for mesenteric angina causing pain in stomach. RN paged attending and PA, however on pain reassment he reports abominal pain improved. Reports LBM to 11/05/20 being slightly loose. +BS, abdomen SNT. Continuous monitoring. supportive at bedside this afternoon.
[2020-11-06] MEDS: OXYCODONE IR 5 MG TABLET 10 MG PO ×3 (15:16→20:59)
--- NOTE | 2020-11-06 16:08 | PM.PN.1 ---
Subjective Subjective Date Patient Seen: 11/06/20 Interval history: Patient is a 75-year-old male who underwent ORIF of the right ankle yesterday. He presented with anemia and hypotension. We were asked to evaluate him for both. The patient has had no further hypotension today. He remains anemic with a hemoglobin of about 8 and a hematocrit of 25. The patient is on oral iron. He is a patient at the [facility] and is scheduled for an upper and lower endoscopy. He has had no hematemesis or melena. Patient was not orthostatic this morning however blood pressure later in the day shows a drop of blood pressure between 132/73 down to 93/68 stand Exam Vital Signs (past 8 hours): - 11/06/20 11:46 11/06/20 15:46 11/06/20 15:48 Temperature 98.0 F Pulse Rate 71 Pulse Rate [Orthostatic Lying] 71 Pulse Rate [Orthostatic Sitting] 92 H 77 Pulse Rate [Orthostatic Standing] 77 89 Respiratory Rate 20 Blood Pressure 132/73 Blood Pressure [Orthostatic Lying] 125/60 132/73 Blood Pressure [Orthostatic Sitting] 108/57 L 123/72 Blood Pressure [Orthostatic Standing] 142/69 H 93/68 Pulse Oximetry 94 Oxygen Delivery Method Room Air Oxygen Flow Rate 0 Narrative Exam Narrative: Pleasant gentleman sitting in bed in no obvious distress Lungs: Clear to auscultation Cardiac exam: Regular rate and rhythm normal S1-S2 with a 2/6 systolic ejection murmur Abdomen: Soft and nontender Extremities: Cast on the right lower extremity Objective Labs Result Diagrams: 11/06/20 05:05 11/05/20 19:00 Labs: Laboratory Results - last 24 hr 11/05/20 11/05/20 11/05/20 18:35 18:35 19:00 WBC 11.7 H RBC 4.28 L Hgb 9.1 L Hct 30.7 L MCV 71.7 L MCH 21.3 L MCHC 29.7 L RDW 21.6 H Plt Count 322 Neut % (Auto) 77.8 H Lymph % (Auto) 13.9 L [place] % (Auto) 7.4 Eos % (Auto) 0.3 L Baso % (Auto) 0.6 Neut # (Auto) 9100 H Lymph # (Auto) 1600 [place] # (Auto) 900 Eos # (Auto) 0 Baso # (Auto) 100 RBC Morphology See below Hypochromasia 1+ H Microcytosis 1+ H PT INR Sodium Potassium Chloride Carbon Dioxide BUN Creatinine Estimated GFR BUN/Creatinine Ratio Glucose Calcium Total Bilirubin AST ALT Alkaline Phosphatase Total Creatine Kinase CK-MB (CK-2) CK-MB (CK-2) Rel Index Troponin I Total Protein Albumin Globulin Albumin/Globulin Ratio SARS-CoV-2 (PCR) Negative Negative Blood Type Antibody Screen 11/05/20 11/05/20 11/05/20 19:00 19:00 19:00 WBC RBC Hgb Hct MCV MCH MCHC RDW Plt Count Neut % (Auto) Lymph % (Auto) [place] % (Auto) Eos % (Auto) Baso % (Auto) Neut # (Auto) Lymph # (Auto) [place] # (Auto) Eos # (Auto) Baso # (Auto) RBC Morphology Hypochromasia Microcytosis PT 13.4 H INR 1.2 Sodium 134 L Potassium 4.4 Chloride 100 Carbon Dioxide 25 BUN 21 H Creatinine 0.95 Estimated GFR > 60.0 BUN/Creatinine Ratio 22.1 H Glucose 93 Calcium 9.2 Total Bilirubin 0.6 AST 26 ALT 17 Alkaline Phosphatase 57 Total Creatine Kinase 77 CK-MB (CK-2) TNP CK-MB (CK-2) Rel Index TNP Troponin I < 0.012 Total Protein 6.9 Albumin 4.2 Globulin 2.7 Albumin/Globulin Ratio 1.6 SARS-CoV-2 (PCR) Blood Type O Positive Antibody Screen Negative 11/06/20 11/06/20 00:05 05:05 WBC 12.5 H RBC 3.78 L Hgb 8.4 L 8.2 L Hct 28.6 L 27.3 L MCV 72.3 L MCH 21.7 L MCHC 30.0 RDW 21.9 H Plt Count 257 Neut % (Auto) Lymph % (Auto) [place] % (Auto) Eos % (Auto) Baso % (Auto) Neut # (Auto) Lymph # (Auto) [place] # (Auto) Eos # (Auto) Baso # (Auto) RBC Morphology Hypochromasia Microcytosis PT INR Sodium Potassium Chloride Carbon Dioxide BUN Creatinine Estimated GFR BUN/Creatinine Ratio Glucose Calcium Total Bilirubin AST ALT Alkaline Phosphatase Total Creatine Kinase CK-MB (CK-2) CK-MB (CK-2) Rel Index Troponin I Total Protein Albumin Globulin Albumin/Globulin Ratio SARS-CoV-2 (PCR) Blood Type Antibody Screen [facility] Medical History Achalasia Anginal pain Asthma Atrial fibrillation Cervical spinal stenosis Chronic obstructive pulmonary disease (10/23/16) COPD (chronic obstructive pulmonary disease) Coronary artery disease History of aortic dissection (~08/2007) Hypertension Ischemic cardiomyopathy Narcotic dependence Neck pain, chronic Ventricular bigeminy Surgical History H/O arthroscopic knee surgery (11/15/17) History of arthroplasty of right knee History of bilateral total hip arthroplasty History of cardiac cath (~03/2014) History of esophageal surgery History of incision and drainage (~2016) History of prior ablation treatment (~03/2017) History of surgery Hx of cholecystectomy Hx of hernia repair Hx of sinus surgery S/P CABG x 3 (~08/2007) S/P cervical spinal fusion S/P lumbar fusion Family History Mother Stroke Social History household members: spouse Smoking Status: Former smoker alcohol intake: current substance use type: does not use Assessment & Plan Assessment & Plan narrative: 1. 75-year-old male status post ORIF of the right ankle following and fall and ankle fracture -patient is in a cast at this point further recommendations per Ortho -regarding DVT prophylaxis would recommend Lovenox at this time. It is a risk benefit ratio. Patient does not have any evidence of active bleeding. Likely will be discharged from the hospital in the next day or so. As he is at significant risk for DVT given recent surgery my recommendation would be to initiate Lovenox 40 mg subQ daily. I will write order to do so. 2. Anemia -etiology unclear, patient reports a history of ulcers previously related to nonsteroidals. He apparently has an outpatient evaluation with GI for an upper endoscopy -he was previously taking oral iron as an outpatient -with continue to trend his hemoglobin and hematocrit. Would not transfuse at this point. Would continue his usual iron. Recommend he follow-up as an outpatient with GI for further evaluation 3. History of mesenteric ischemia ongoing pain -patient can take his usual oxycodone as he takes at home -would defer morphine as an inpatient 4. Orthostatic hypotension -etiology unclear -patient is on multiple blood pressure medications which may be lowering his pressure. At this time would decrease his metoprolol from 100 twice daily to 50 twice daily repeat his orthostatics tomorrow. Would hold Lasix during his hospital stay as well. Quality VTE Deep Vein Thrombosis/Pulmonary Embolism Present on Admission: No
--- NOTE | 2020-11-06 16:13 | OT.IPNOTE ---
Attempted to see pt for OT eval and pt states has all equipment needs, will assist him and therefore refusing OT eval. Therefore discharge OT eval orders. Pt states agreed that he will continue to see PT while here in the hospital.
--- NOTE | 2020-11-06 17:28 | PC.NURSE ---
Addendum entered by Barbara Anders R.N. 11/06/20 21:33: While pt does not rate pain below 9/10 to right LE pt has been conversant all evening shift with staff and on telephone. Accepts explanation that hospitalist is not ordering any further narcotics. Informed by overnight hospitalist katlinft hospitalist already had this conversation with pt. Addendum entered by Barbara Adners R.N. 11/06/20 20:45: Pt has had continual requests of staff all evening shift and has utilized call light constantly. Staff have been quick to respond to attempt to meet pt's needs and wants. This race and sports book writer provided pt with paper and pen and requested pt write down all requests and this race and sports book writer would personally take to in house provider. This was done. Per hospitalist Marcos, there will not be any increase in narcotics ordered by ortho and patient was informed by this race and sports book writer. Pt accepts this as long as I can get my trazodone. Refuses to wear scd on left leg. Addendum entered by Barbara Anders R.N. 11/06/20 17:34: Per dayshift report, pt has refused to wear telemetry. ICU was informed and this order was discontinued. Original Note: Patient summons this race and sports book writer right at shift change and requests pain medications for 9/10 pain to RLE. States, I've got to have something and pt requests morphine. Noted on pt's emar morphine has been discontinued. Discussion with pt regarding orders for oxycodone 10 mg and how oral analgesia will have greater lasting effect than iv meds. Pt is in agreement and this was administered per emar. Offered pt ice to right ankle and pt declines. Toes exposed from right LE cast are warm and dry and pink in color with brisk capillary refill. Pt admits to full sensation to these toes. Pt reports has issues with GI tract as a baseline and currently states these are under control. Denies any difficulty with urination.
--- NOTE | 2020-11-06 20:00 | RT ---
Pt is refusing to take QVAR while in hospital. Pt refused QVAR at 1936. Pt stated he only takes his Xopenex MDI that he brought from home.
[2020-11-06] MEDS: TRAZODONE 100 MG TABLET 400 MG PO (21:00)
[2020-11-06 23:34] LABS: Bacteria Urine None Seen; RBC Urine None Seen (0-5/HPF); WBC Urine None Seen (0-5/HPF)
[2020-11-06 23:35] LABS: Appearance Urine UA CLEAR; Bilirubin Urine UA NEGATIVE (NEGATIVE); Color Urine UA YELLOW; Glucose Urine UA NEGATIVE (Negative); Ketones Urine UA NEGATIVE (NEGATIVE); Leukocyte Esterase Urine UA NEGATIVE (NEGATIVE); Nitrite Urine UA NEGATIVE (Negative); Occult Blood Urine UA NEGATIVE (Negative); Protein Urine UA NEGATIVE (Negative); Urobilinogen Urine UA 0.2 E.U./dL (0.2)
[2020-11-07] MEDS: OXYCODONE IR 5 MG TABLET 10 MG PO ×2 (00:08→04:34)
[2020-11-07 00:13] LABS: Culture Indicated Urine Cult Not Indicated
--- NOTE | 2020-11-07 01:21 | PC.NURSE ---
0010 Noted pt. was hiding a specimen cup, asked him what's in the specimen cup he stated it's a cough drop. I asked him if I can see it, then he stated it's one of my Trazadone pill. I was not able to see the pill, patient put the pill in his mouth & swallowed it. Educated pt. that if the nurse administered any medication he need to swallow it to achieved the efficacy in order for it to work. Then he said I'm saving it so I can take it later. Notified Coordinator & notified hospitalist JORDAN Rodríguez. Will cont. POC & monitor.
--- NOTE | 2020-11-07 04:06 | PC.NURSE ---
Checked pt. to assess his pain level, but he was sound asleep & snoring lightly. Will monitor & medicated him when he wakes up
[2020-11-07 04:39] VITALS: BP 135/67; PULSE 95; RESP 18; TEMP 36.8; O2SAT 95
[2020-11-07 05:22] LABS: Add Manual Diff / Slide Review NO; Basophils Absolute Auto 100 /uL (0-100); Basophils Percent Auto 0.8 % (0-2); Eosinophils Absolute Auto 200 /uL (0-450); Eosinophils Percent Auto 2.2 % (2-4); Hematocrit 28.9 % (41-53); Hemoglobin 8.7 g/dL (13.5-17.5); Lymphocytes Absolute Auto 1500 /uL (1100-4500); Lymphocytes Percent Auto 15.2 % (25-40); Mean Corpuscular HGB Conc 30.1 % (30-36); Mean Corpuscular Hemoglobin 21.7 PG (26-34); Mean Corpuscular Volume 72.2 fL (80-100); Monocytes Absolute Auto 1200 /uL (0-900); Monocytes Percent Auto 12.4 % (3-14); Neutrophils Absolute Auto 6700 /uL (1500-7000); Neutrophils Percent Auto 69.4 % (50-75); Platelet Count 275 X10^3/uL (150-400); Red Blood Cell Count 4.01 X10^6/uL (4.5-5.9); Red Cell Distribution Width 21.9 % (11.6-14.8); White Blood Cell Count 9.7 X10^3/uL (4.5-11.0)
[2020-11-07 05:28] LABS: BUN Creatinine Ratio 15.7 (6-22); Blood Urea Nitrogen 14 mg/dL (9-20); Calcium 8.6 mg/dL (8.4-10.2); Carbon Dioxide 31 mmol/L (22-32); Chloride 102 mmol/L (98-107); Estimated Glomerular Filt Rate > 60.0 mL/min (>60); Glucose 117 mg/dL (80-110); HEMOLYSIS < 15 (0-50); Potassium 4.2 mmol/L (3.4-5.1); Sodium 138 mmol/L (137-145)
[2020-11-07 06:11] LABS: Anisocytosis 3+; Microcytosis 1+
[2020-11-07 06:12] LABS: Ovalocytes 1+; Schistocytes 1+
--- NOTE | 2020-11-07 07:48 | CM.DPC ---
Addendum entered by Betty Soto R.N. 11/07/20 12:09: Called [facility] and confirmed that they do take [facility], and they are expecting the referral. Including face sheet, face to face, orders, DC Summary, today's progress note, P.T. notes. Addendum entered by eBtty Soto R.N. 11/07/20 11:56: Met with patient later in the am. He had been yelling out in pain prior, was wanting something for the pain, and that splint was too tight. Patient was calm later, after his splint was looser. had come by. Patient is to be discharged today, but stated, I'm not going home today. MARITO Quezada, spoke to patient and indicated that he is ready for discharge today, and cleared by hospitalist. Spoke to about home health, and she is wanting [facility]. She and patient are aware that he is being discharged today. will be dropping off prescriptions to pharmacy for his pain medications. Will contact [facility]. Original Note: DCP Cont: Received a message from patient after 1600, stating that he wished to discuss discharge planning. Checked in early this morning, and confirmed that he does not want alf. Mentioned home health agencies briefly, but patient was just waking up and wanted to use urinal. Let him know that this cyber intel planner will check in later. P: DCP to continue to follow and will check in with patient later. Will provide names of home health agencies. Already have face to face completed. Betty Soto RN/Risk Prevention Engineer
[2020-11-07] MEDS: OXYCODONE IR 5 MG TABLET PO (07:55)
[2020-11-07] MEDS: LORATADINE 10 MG TABLET PO (08:00)
[2020-11-07] MEDS: ENOXAPARIN 40 MG/0.4 ML SYRINGE SUBCUT (08:00)
[2020-11-07] MEDS: diphenhydrAMINE 25 MG TABLET PO (08:00)
[2020-11-07] MEDS: SODIUM CHLORIDE 0.9% FLUSH 10 ML IV (08:01)
[2020-11-07 09:27] VITALS: BP 121/90; BP 154/70; PULSE 88; PULSE 96
[2020-11-07] MEDS: hydrOXYzine pamoate 25 MG CAPSULE PO (10:33)
[2020-11-07] MEDS: HYDROMORPHONE 0.5 MG INJ IV (10:36)
--- NOTE | 2020-11-07 10:41 | P.PN_ITS ---
Subjective Subjective Date Patient Seen: 11/07/20 Time Patient Seen: 10:41 Interval history: Patient is in acute distress lying in bed. Patient states that he is experiencing 10/10 pain along the medial and lateral aspects of the right ankle. He notes that his pain has gradually worsened after waking up two hours ago, and he reports that he was awoken from sleep due to the pain. Patient explains that he has been able to ambulate on the right LE to use the restroom. He reports that his pain management regimen has not been alleviating his symptoms. Gauze bandage covering the right LE was partially removed using bandage scissors which provided mild relief of painful symptoms. Exam Vital Signs (past 8 hours): - 11/07/20 04:39 11/07/20 09:27 Temperature 98.2 F Pulse Rate 95 H Pulse Rate [Orthostatic Lying] 88 Pulse Rate [Orthostatic Sitting] 96 H Respiratory Rate 18 Blood Pressure 135/67 Blood Pressure [Orthostatic Lying] 154/70 H Blood Pressure [Orthostatic Sitting] 121/90 Pulse Oximetry 95 Oxygen Delivery Method Room Air Oxygen Flow Rate 0 Narrative Exam Narrative: Patient is in acute distress lying in bed. The right LE is wrapped in gauze bandages and a bivalve cast at the ankle. Pulses intact and the right LE is warm to the touch. No excessive swelling was noted on the right LE. The gauze bandage was removed from around the right leg and the leg appeared normal to inspection. Sensation intact throughout the bilateral lower extremities, capilllary refill < 2 seconds, NVI. Mild strike through noted on the bandage after gauze padding removed. No swelling, ecchymosis, induration, or erythema appreciated. Const General: cooperative, healthy appearing and acute distress Resp Effort & Inspection: normal respiratory effort and able to speak in complete sentences Extrem General: normal exam except as noted Objective Labs Result Diagrams: 11/07/20 04:50 11/07/20 04:50 Labs: Laboratory Results - last 24 hr 11/06/20 11/07/20 11/07/20 23:20 04:50 04:50 WBC 9.7 RBC 4.01 L Hgb 8.7 L Hct 28.9 L MCV 72.2 L MCH 21.7 L MCHC 30.1 RDW 21.9 H Plt Count 275 Neut % (Auto) 69.4 Lymph % (Auto) 15.2 L [place] % (Auto) 12.4 Eos % (Auto) 2.2 Baso % (Auto) 0.8 Neut # (Auto) 6700 Lymph # (Auto) 1500 [place] # (Auto) 1200 H Eos # (Auto) 200 Baso # (Auto) 100 RBC Morphology See below Anisocytosis 3+ H Microcytosis 1+ H Ovalocytes 1+ H Schistocytes 1+ H Sodium 138 Potassium 4.2 Chloride 102 Carbon Dioxide 31 BUN 14 Creatinine 0.89 Estimated GFR > 60.0 BUN/Creatinine Ratio 15.7 Glucose 117 H Calcium 8.6 Urine Color Yellow Urine Appearance Clear Urine pH 6.0 Ur Specific [place] 1.010 Urine Protein Negative Urine Glucose (UA) Negative Urine Ketones Negative Urine Occult Blood Negative Urine Nitrate Negative Urine Bilirubin Negative Urine Urobilinogen 0.2 Ur Leukocyte Esterase Negative Urine RBC None seen Urine WBC None seen Urine Bacteria None seen Ur Culture Indicated? Cult not indicated PFSH Medical History Achalasia Anginal pain Asthma Atrial fibrillation Cervical spinal stenosis Chronic obstructive pulmonary disease (10/23/16) COPD (chronic obstructive pulmonary disease) Coronary artery disease History of aortic dissection (~08/2007) Hypertension Ischemic cardiomyopathy Narcotic dependence Neck pain, chronic Ventricular bigeminy Surgical History H/O arthroscopic knee surgery (11/15/17) History of arthroplasty of right knee History of bilateral total hip arthroplasty History of cardiac cath (~03/2014) History of esophageal surgery History of incision and drainage (~2016) History of prior ablation treatment (~03/2017) History of surgery Hx of cholecystectomy Hx of hernia repair Hx of sinus surgery S/P CABG x 3 (~08/2007) S/P cervical spinal fusion S/P lumbar fusion Family History Mother Stroke Social History household members: spouse Smoking Status: Former smoker alcohol intake: current substance use type: does not use Assessment & Plan Post-op Postoperative Procedures: Procedures Operation Date: 11/05/20 21:00 Actual Procedures Side Surgeon p ORIF Ankle Fracture Right Luis Farias MD Postoperative day: 2 Postoperative status narrative: Patient experiencing pain not controlled by current pain management regimen. Postoperative plan narrative: Increase the patient's does of Oxycodone from 10mg to 15mg q4hrs. A one-time does of 0.5mg IV was administered to alleviate pain. Vistaril 25mg PO was administered for muscle spasms. Gauze bandage will be replaced over the right LE over the bivalve cast at the ankle. Quality VTE Deep Vein Thrombosis/Pulmonary Embolism Present on Admission: No
[2020-11-07] MEDS: OXYCODONE IR 5 MG TABLET 15 MG PO (11:03)
--- NOTE | 2020-11-07 12:01 | P.DS_ITS ---
History of Present Illness History of Present Illness Date Patient Seen: 11/07/20 Time Patient Seen: 12:01 Chief complaint: mechanical fall Narrative: Please refer to document HPI and chart. Discharge Providers Provider Date of admission: 11/05/20 19:41 Discharge Date: 11/07/20 Primary care physician: Romi Tavera MD Consults: 11/05/20 23:38 Consult to Discharge Planning Routine Comment: Consult to Physical Therapy Evaluate & Treat Comment: Physician Instructions: Evaluate and Treat Consult to Respiratory Therapy Evaluate & Treat Comment: Physician Instructions: Evaluate and treat 11/06/20 07:57 Consult to Occupational Therapy Evaluate & Treat Comment: SNF? Physician Instructions: Evaluate and treat 11/06/20 07:58 Consult to PARKING LINE PAINTER - Technical Agronomist Routine Comment: SNF vs. Home Health 11/07/20 12:00 Consult to Home Health Routine Comment: Reason For Exam: Home Health RN, P.T, O.T. Discharge provider: Damien Valdez PA-C Summary Hospital Course Discharge Diagnosis: Right open bimalleolar ankle fracture dislocation Status post irrigation debridement right open ankle fracture open reduction internal fixation of bimalleolar ankle fracture Hospital Course: This is a 75-year-old male who had a ground level fall suffering the acute traumatic injury listed above and was consented for the i ndicated procedure listed. He presented to the operating room undergoing said procedure without difficulty or complication and was admitted for rehabilitation having convalesced appropriately after medical consultation to workup chronic GI bleed and syncopal episode he was medically cleared for disposition home and 40 mg Lovenox subQ daily for the next 6 weeks by the Hospitalist with PCP follow-up in 1 week including EGD evaluation for chronic GI bleed. Eventually his pain is controlled with oral medications only and is cleared by PT/OT for disposition home with nonweightbearing on the affected right ankle. Prior to discharge the patient was also examined by his orthopedic surgeon Dr. Luis Farias who replaced his dressing/splint. At the time of discharge the patient denied any chest toshia n, shortness of breath, intractable pain, and dysfunction in his right toes. He verbalized understanding postoperative care instructions and agree with plan for surgical and medical follow-up. Exam Vital Signs (past 8 hours): - 11/07/20 04:39 11/07/20 09:27 Temperature 98.2 F Pulse Rate 95 H Pulse Rate [Orthostatic Lying] 88 Pulse Rate [Orthostatic Sitting] 96 H Respiratory Rate 18 Blood Pressure 135/67 Blood Pressure [Orthostatic Lying] 154/70 H Blood Pressure [Orthostatic Sitting] 121/90 Pulse Oximetry 95 Oxygen Delivery Method Room Air Oxygen Flow Rate 0 Narrative Exam Narrative: 75-year-old male witnessed laying in bed in no acute distress. He had a normal heart rate and inspiratory effort. Dressing & Splint changed. Ankle in normal gross alignment. Mild-moderate swelling. Wound is CDI & viable without dehisense. His right foot and toes were neurovascularly intact. There is no sign or symptom of DVT bilaterally. Objective Labs Result Diagrams: 11/07/20 04:50 11/07/20 04:50 Labs: Laboratory Results - last 24 hr 11/06/20 11/07/20 11/07/20 23:20 04:50 04:50 WBC 9.7 RBC 4.01 L Hgb 8.7 L Hct 28.9 L MCV 72.2 L MCH 21.7 L MCHC 30.1 RDW 21.9 H Plt Count 275 Neut % (Auto) 69.4 Lymph % (Auto) 15.2 L [place] % (Auto) 12.4 Eos % (Auto) 2.2 Baso % (Auto) 0.8 Neut # (Auto) 6700 Lymph # (Auto) 1500 [place] # (Auto) 1200 H Eos # (Auto) 200 Baso # (Auto) 100 RBC Morphology See below Anisocytosis 3+ H Microcytosis 1+ H Ovalocytes 1+ H Schistocytes 1+ H Sodium 138 Potassium 4.2 Chloride 102 Carbon Dioxide 31 BUN 14 Creatinine 0.89 Estimated GFR > 60.0 BUN/Creatinine Ratio 15.7 Glucose 117 H Calcium 8.6 Urine Color Yellow Urine Appearance Clear Urine pH 6.0 Ur Specific [place] 1.010 Urine Protein Negative Urine Glucose (UA) Negative Urine Ketones Negative Urine Occult Blood Negative Urine Nitrate Negative Urine Bilirubin Negative Urine Urobilinogen 0.2 Ur Leukocyte Esterase Negative Urine RBC None seen Urine WBC None seen Urine Bacteria None seen Ur Culture Indicated? Cult not indicated PFSH Medical History Achalasia Anginal pain Asthma Atrial fibrillation Cervical spinal stenosis Chronic obstructive pulmonary disease (10/23/16) COPD (chronic obstructive pulmonary disease) Coronary artery disease History of aortic dissection (~08/2007) Hypertension Ischemic cardiomyopathy Narcotic dependence Neck pain, chronic Ventricular bigeminy Surgical History H/O arthroscopic knee surgery (11/15/17) History of arthroplasty of right knee History of bilateral total hip arthroplasty History of cardiac cath (~03/2014) History of esophageal surgery History of incision and drainage (~2016) History of prior ablation treatment (~03/2017) History of surgery Hx of cholecystectomy Hx of hernia repair Hx of sinus surgery S/P CABG x 3 (~08/2007) S/P cervical spinal fusion S/P lumbar fusion Family History Mother Stroke Social History household members: spouse Smoking Status: Former smoker alcohol intake: current substance use type: does not use Discharge Assessment & Plan Assessment and Plan Assessment: Right open bimalleolar ankle fracture dislocation Status post irrigation debridement right open ankle fracture open reduction internal fixation of bimalleolar ankle fracture Plan of Treatment: Discharge home after evaluated and cleared by Dr. Farias for disposition. Medical clearance for Lovenox for next 6 weeks. Nonweightbearing on right ankle for 6 weeks. Keep splint and dressing clean, dry and intact. Follow-up in Orthopedic clinic in 2 weeks for re-evaluation. Follow-up in 1 week with PCP. EGD scheduled in 1 week. Discharge Plan Discharge Plan Patient Disposition: Home Provider Discharge Comment: After cleared by Dr. Farias for discharge and follow- up appointments for EGD, PCP, Surgeon arranged. Discharge orders & Medications Prescriptions: New oxycodone 5 mg Tablet 10 mg PO Q4-5H PRN (Reason: Pain, Severe (7-10)) Qty: 60 RF: 0 enoxaparin [Lovenox] 40 mg/0.4 mL Syringe 40 mg SUBCUT DAILY Qty: 40 RF: 0 acetaminophen [Athenol] 325 mg tablet 650 mg PO Q6H PRN (Reason: pain) Qty: 60 RF: 0 Continued multivitamin [Multiple Vitamins] 1 EACH tablet 1 tab PO DAILY Qty: 0 RF: 0 aspirin 325 MG tablet,delayed release (DR/EC) 325 mg PO BEDTIME Qty: 0 RF: 0 fluticasone propionate 16 GM spray,suspension 1 spray Intranasal DAILY Qty: 0 RF: 0 furosemide 40 mg Tablet 40 mg PO DAILY RF: 0 clonidine HCl 0.1 mg tablet 0.1 - 0.2 mg PO Q8H PRN (Reason: withdrawal symptoms) RF: 0 ferrous sulfate 325 mg (65 mg iron) tablet,delayed release (DR/EC) 325 mg PO DAILY RF: 0 trazodone 100 mg tablet 400 tab PO BEDTIME RF: 0 levalbuterol tartrate [Xopenex HFA] 45 mcg/actuation HFA aerosol inhaler 1 puff INHALATION Q4-6H PRN (Reason: shortness of breath or wheezing) Qty: 15 RF: 0 metoprolol tartrate 100 mg tablet 100 mg PO BID RF: 0 levalbuterol HCl 1.25 mg/3 mL solution for nebulization 3 ml Inhalation Q6H PRN (Reason: Shortness Of Breath) RF: 0 Zyrtec 10 mg Capsule 10 mg PO DAILY RF: 0 docusate sodium [DOK] 100 mg Capsule 100 mg PO BID PRN (Reason: constipation) Qty: 30 RF: 0 cyclobenzaprine 10 mg tablet 10 mg PO TID PRN (Reason: muscle spasm) Qty: 14 RF: 0 Discontinued acetaminophen-codeine 300-30 mg tablet 1 - 2 tab PO Q6H MDD 5 PRN (Reason: pain) RF: 0 oxycodone-acetaminophen [Percocet] 5-325 mg tablet 1 tab PO QID PRN (Reason: pain) Qty: 10 RF: 0 Follow up/Referrals: Romi Tavera MD [Primary Care Provider] - Luis Farias MD [Physician] - (F/U in 2 weeks) Diet/Activity/Treatments Diet: Diet as Tolerated Activity: Nonweightbearing on right ankle for 6 weeks Cold/Heat Therapy: Ice 20 minutes on per hour as tolerated Skin/Wound/Dressing Care Report to your healthcare provider any signs of infection, such as:: chills, fever, night sweats, increased pain, unusual drainage and unusual redness Dressing: Keep dressing and splint clean, dry and intact. Okay to shower with a bag over ankle but do not soak. Visit Report/Discharge Packet Instructions: DI for Heart Failure, DI for Open Reduction Internal Fixation Surgery, DI for Prescription Opioid Use Stand Alone Forms: Surgery Discharge Discharge Data Primary Care Provider: Romi Tavera VTE Deep Vein Thrombosis/Pulmonary Embolism Present on Admission: No
--- NOTE | 2020-11-07 12:17 | PT-IP ANOTE ---
checked on pt this morning but was c/o a lot of pain. pt was moaning in pain and is a little agitated. nurse informed that they are getting a hold of the surgeon. checked back with the nurse and stated that the doctor is re-wrapping pt's LE right now. checked back with pt and stated that he is feeling better but refused PT. stated that he has been through a lot this morning and does not want to move. stated that he is going home today and spouse and daughter will assist him at home. stated that he is set up at home and has a w/c, FWW and 4WW.
--- NOTE | 2020-11-07 14:16 | PC.NURSE ---
Pt recieved lying in bed sleeping. Upon awakening, c/o pain 10/10 to R ankle, behavior calm A&Ox3. CMS+ to RLE. After PRN 10 mg oxycodone administered pt reports no relief and continues to complain of increasing acute pain to R ankle. Per Hospitalist and surgery patient is medically cleared for discharge this a.m. PA Phong Ramirez arrived due to patient x2 hours of calling out in paint to RLE. CMS positive to RLE toes. At bedside PA split soft cast to relieve pressure. IV 0.5mg dilauded given per orders with vestoril, with some relief. However pt tearful in pain, saying I cant take it anymore Oxycodone dose 15 mg given at 1100. updated of situation and PA with MD Farias returned to bedside to re cast RLE this afternoon. Pt behavior much more calm eating lunch without further yelling.RN reviewed discharge orders, activity, follow up instructions and medications with patient and who verbalized understanding of instructions as well as understanding referral for home health. Pt escorted with OFFSET PRESS ASSISTANT via wheelchair for discharge.Prescriptions given to and all belongings transported with patient to private car.
== END 2020-11-07 14:00 | disposition home or self-care (01) | DRG 494 ==
LOC: ED 19:40 → AC 19:41
PROVIDERS: Internal Medicine; Nurse Practitioner Family; Admitting Provider Orthopaedic Surgery Adult Reconstructive Orthopaedic Surgery; Emergency Provider Emergency Medicine; PCP Internal Medicine; Referring Provider Emergency Medicine; Visit Provider Orthopaedic Surgery Adult Reconstructive Orthopaedic Surgery
PROC: 0SSF04Z Reposition Right Ankle Joint with Internal Fixation Device, Open Approach (ICD-10-PCS; principal; 2020-11-05 21:00)
DX: S82.841B Displaced bimalleolar fracture of right lower leg, initial encounter for open fracture type I or II (principal); M25.561 Pain in right knee; W18.11XA Fall from or off toilet without subsequent striking against object, initial encounter; Y92.002 Bathroom of unspecified non-institutional (private) residence as the place of occurrence of the external cause; D64.9 Anemia, unspecified; I48.0 Paroxysmal atrial fibrillation; J44.9 Chronic obstructive pulmonary disease, unspecified; I10 Essential (primary) hypertension; Z20.822 Contact with and (suspected) exposure to COVID-19; I25.5 Ischemic cardiomyopathy; I95.1 Orthostatic hypotension
CPT/HCPCS: 36415; 73560; 73590; 73600; 73610; 76000; 80048; 80053; 81001; 82550; 82962; 84484; 85014; 85018; 85025; 85027; 85610; 86850; 86900; 86901; 87635; 93005; 96361; 96365; 96375; 97163; 97530; 99284; C9803; C9113; J0131; J0330; J0690; J1170; J1650; J1885; J2270; J2274; J2405; J2590; J2704; J2765; J3010

== ENCOUNTER 2020-11-08 08:51 | Emergency (ER) | payer OTHER, SELFPAY ==
[2020-11-06] VITALS: BMI 28.6
--- NOTE | 2020-11-08 08:53 | ED_ITS ---
HPI - General Adult General Chief complaint: Extremity Injury, Upper Stated complaint: thumb pain Time Seen by Provider: 11/08/20 08:51 Source: patient Mode of arrival: EMS Limitations: no limitations History of Present Illness HPI narrative: Patient is a 75-year-old male who was recently seen and admitted to our facility after sustaining a fall and having a right ankle fracture. He underwent a ORIF and was subsequently discharged. He returns to emergency department today by EMS for evaluation of a left thumb injury. He states that he thinks he hurt it when he fell and injured his right ankle but he is unsure. He took 2 of his oxycodone at home prior to arrival without any improvement. He states the pain is radiating up his arm into a shoulder. Related Data Home Medications Medication Instructions Recorded Confirmed multivitamin [Multiple Vitamins] 1 tab PO DAILY #0 12/21/16 11/06/20 aspirin 325 mg PO BEDTIME #0 11/03/17 11/06/20 fluticasone propionate 1 spray INTRANASAL DAILY #0 11/03/17 11/06/20 trazodone 400 tab PO BEDTIME 12/10/17 11/06/20 levalbuterol HCl 3 ml INHALATION Q6H PRN 10/17/18 11/06/20 metoprolol tartrate 100 mg PO BID 10/17/18 11/06/20 Zyrtec 10 mg PO DAILY 05/23/19 11/06/20 clonidine HCl 0.1 - 0.2 mg PO Q8H PRN 10/20/19 11/06/20 ferrous sulfate 325 mg PO DAILY 10/20/19 11/06/20 furosemide 40 mg PO DAILY 10/20/19 11/06/20 Previous Rx's Medication Instructions Recorded levalbuterol tartrate [Xopenex HFA] 1 puff INHALATION Q4-6H PRN #15 06/23/18 gram docusate sodium [DOK] 100 mg PO BID PRN #30 cap 05/28/19 cyclobenzaprine 10 mg PO TID PRN #14 tab 02/12/20 acetaminophen [Athenol] 650 mg PO Q6H PRN #60 tab 11/07/20 enoxaparin [Lovenox] 40 mg SUBCUT DAILY #40 ml 11/07/20 oxycodone 10 mg PO Q4-5H PRN #60 tab 11/07/20 Allergies Allergy/AdvReac Type Severity Reaction Status Date / Time celecoxib [CELECOXIB] Allergy Mild SWELLING Verified 11/05/20 18:37 latex [LATEX] Allergy Mild RASH Verified 11/05/20 18:37 W/EXTENDED EXPOSURE Sulfa (Sulfonamide Allergy Mild RASH Verified 11/05/20 18:37 Antibiotics) [SULFA (SULFONAMIDE ANTIBIOTICS)] varenicline [VARENICLINE] AdvReac Severe Paranoia Verified 11/05/20 18:37 buprenorphine [BUPRENORPHINE] AdvReac Mild NAUSEA, Verified 11/05/20 18:37 DIZZINESS hyoscyamine [HYOSCYAMINE] AdvReac Mild LEG Verified 11/05/20 18:37 JERKING, ANXIETY, NAUSEA W/I MINUTES Gyfmzbk-Bqx-Bdi Reductase AdvReac Mild WEAK Verified 11/05/20 18:37 Inhibitor MUSCLES [[id number] REDUCTASE INHIBITOR] diazepam [From Valium] AdvReac Confusion Verified 11/05/20 18:37 Review of Systems Constitutional Constitutional: Denies fever(s) Musculoskeletal Comments: Left thumb pain Integumentary/Breasts Comments: Bruising around the left thumb Neurologic Comments: Pain rating up his left arm to his shoulder Patient History Medical History Achalasia Anginal pain Asthma Atrial fibrillation Cervical spinal stenosis Chronic obstructive pulmonary disease (10/23/16) COPD (chronic obstructive pulmonary disease) Coronary artery disease History of aortic dissection (~08/2007) Hypertension Ischemic cardiomyopathy Narcotic dependence Neck pain, chronic Ventricular bigeminy Surgical History H/O arthroscopic knee surgery (11/15/17) History of arthroplasty of right knee History of bilateral total hip arthroplasty History of cardiac cath (~03/2014) History of esophageal surgery History of incision and drainage (~2016) History of prior ablation treatment (~03/2017) History of surgery Hx of cholecystectomy Hx of hernia repair Hx of sinus surgery S/P CABG x 3 (~08/2007) S/P cervical spinal fusion S/P lumbar fusion Family History Mother Stroke Social History household members: spouse Smoking Status: Former smoker alcohol intake: current substance use type: does not use Smoking Status: Former smoker alcohol intake frequency: a few times a week Substance Use Type: does not use Exam Initial Vital Signs Initial Vital Signs: Vital Signs Temperature 99.5 F 11/08/20 08:58 Pulse Rate 110 H 11/08/20 08:58 Respiratory Rate 24 11/08/20 08:58 Blood Pressure 148/83 H 11/08/20 08:58 Pulse Oximetry 97 11/08/20 08:58 Const General: cooperative Limitations: mental status not altered HENRI Head: normal to inspection and normocephalic Cardio Pulses: radial pulses present on the left Skin Other: Small amount of bruising on the dorsum of the left wrist around the base of the thumb Neuro Sensory Exam: no sensory deficits noted Extrem Other: Tenderness to palpation all around the base of the left thumb. Psych Appearance: grossly normal and well kempt Course Orders Ordered: ED Orders 11/08/20 08:52 XR hand LT min 3V Stat Discontinued Medications Ketorolac Tromethamine (Ketorolac 60 Mg/2 Ml Vial) 30 mg IM NOW ONE Stop: 11/08/20 09:05 Last Admin: 11/08/20 09:18 Dose: 30 mg Documented by: ALENA Vital Signs Vital signs: Vital Signs - 8 hr 11/08/20 08:58 Temperature 99.5 F Pulse Rate 110 H Respiratory Rate 24 Blood Pressure 148/83 H Pulse Oximetry 97 Medical Decision Making Imaging Data Extremity x-ray #1: Radiologist's Impression: [address] [id number] ReportSigned Patient: Karthikeyan Yo DMR#: [id number]: 5Acct:[id number]/Sex: 75 / MDate of Service: 11/08/20Loc: EDAccession Number: [id number] Procedure: XR hand LT min 3V Ordering Provider: Karthikeyan Prakash D.O. PROCEDURE: XR HAND LT MIN 3V INDICATIONS: pain around left thumb after fall TECHNIQUE: 3 views of the hand(s) acquired. COMPARISON: None. FINDINGS: Bones: Moderately severe degenerative arthritis involving the 1st carpometacarpal joint. Degenerative arthritis involving the triscaphe joint. 1st MCP degenerative arthritis. No fractures or dislocations. Carpal bones are normally aligned. No suspicious bony lesions. Soft tissues: No suspicious soft tissue calcifications. IMPRESSION: 1. No evidence of acute fracture or dislocation. 2. 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 Dictated by: Dany Smith M.D. on 11/08/2020 at 9:17 Approved by: Dany Smith M.D. on 11/08/2020 at 9:19 [facility] Narrative Medical decision making narrative: There were no fractures noted on the x-rays. He is neurovascularly intact. He was given Toradol here in the ER. He has had an issue with pain medicine in the past some no opioids were prescribed here in the emergency department. No further workup needed. He will be discharged home to continue postoperative instructions for his right ankle fracture Discharge Plan Departure Patient Disposition: Home Clinical Impression: Pain of left thumb Activity Restrictions/Additional Instructions: There were no fractures noted on the x-rays. You have no restrictions on your activities. Continue all of the instructions given to you by the orthopedic doctor with regard to your right ankle fracture. Contact her primary provider for follow-up. Prescriptions: No Action multivitamin [Multiple Vitamins] 1 EACH tablet 1 tab PO DAILY Qty: 0 RF: 0 aspirin 325 MG tablet,delayed release (DR/EC) 325 mg PO BEDTIME Qty: 0 RF: 0 fluticasone propionate 16 GM spray,suspension 1 spray Intranasal DAILY Qty: 0 RF: 0 furosemide 40 mg Tablet 40 mg PO DAILY RF: 0 clonidine HCl 0.1 mg tablet 0.1 - 0.2 mg PO Q8H PRN (Reason: withdrawal symptoms) RF: 0 ferrous sulfate 325 mg (65 mg iron) tablet,delayed release (DR/EC) 325 mg PO DAILY RF: 0 oxycodone 5 mg Tablet 10 mg PO Q4-5H PRN (Reason: Pain, Severe (7-10)) Qty: 60 RF: 0 enoxaparin [Lovenox] 40 mg/0.4 mL Syringe 40 mg SUBCUT DAILY Qty: 40 RF: 0 acetaminophen [Athenol] 325 mg tablet 650 mg PO Q6H PRN (Reason: pain) Qty: 60 RF: 0 trazodone 100 mg tablet 400 tab PO BEDTIME RF: 0 levalbuterol tartrate [Xopenex HFA] 45 mcg/actuation HFA aerosol inhaler 1 puff INHALATION Q4-6H PRN (Reason: shortness of breath or wheezing) Qty: 15 RF: 0 metoprolol tartrate 100 mg tablet 100 mg PO BID RF: 0 levalbuterol HCl 1.25 mg/3 mL solution for nebulization 3 ml Inhalation Q6H PRN (Reason: Shortness Of Breath) RF: 0 Zyrtec 10 mg Capsule 10 mg PO DAILY RF: 0 docusate sodium [DOK] 100 mg Capsule 100 mg PO BID PRN (Reason: constipation) Qty: 30 RF: 0 cyclobenzaprine 10 mg tablet 10 mg PO TID PRN (Reason: muscle spasm) Qty: 14 RF: 0 Referrals: Romi Tavera MD [Primary Care Provider] -
[2020-11-08 08:57] VITALS: PULSE 75; O2SAT 95
[2020-11-08 08:58] VITALS: BP 148/83; PULSE 110; RESP 24; TEMP 37.5; O2SAT 97; BMI 27.6
[2020-11-08 09:00] VITALS: BP 161/86; O2SAT 91
[2020-11-08] MEDS: KETOROLAC 60 MG/2 ML VIAL 30 MG IM (09:18)
[2020-11-08] MEDS: ACETAMINOPHEN 325 MG TABLET 650 MG PO (11:43)
--- NOTE | 2020-11-08 16:54 | CM.SWNOTE ---
ECONOMIC SPECIALIST note ECONOMIC SPECIALIST consult requested for patient. Patient is 75 yo male who presents to this ED with stated complaints of severe anemia symptoms and thumb pain. Patient was discharged from acute care on 11/07/20 with referral to [facility] post op from compound leg fracture. Patient?s insurance is listed as [facility]. instrument lens inspector met bedside with patient and Cristel. Patient was A+Ox3 and presented as agitated affect. Patient and reported that they want patient to be at SNF and is not able to safely care for him. Patient and presented as anxious and reported that they needed a higher level of care than HH. ECONOMIC SPECIALIST observes that patient and engaging in argumentative communication and talking over each other consistently during assessment. ECONOMIC SPECIALIST attempts to provide patient education of HH vs caregiving and patient and declined and remained adamant that home care was not appropriate for their needs. instrument lens inspector offers to contact insurance and SNFs to inquire about eligibility/availability/ coverage. Patient accepts and provides verbal consent for instrument lens inspector to contact local SNFs and patient?s insurance. instrument lens inspector contacts [facility] floor care specialist and left (ph. [phone]) with patient information requesting return call. instrument lens inspector contacts Anjali in admissions at [facility] (ph. [phone]) and reviewed the patient?s file and reported that SNF will not be able to take him due to his oncology follow up appts. [facility] recommends HH or respite at [facility]. Dr. Prakash informs instrument lens inspector that patient is on the phone with [facility] and would like to speak with instrument lens inspector, instrument lens inspector met with patient at [facility] in room and [facility] floor care specialist reported that patient is in need of referral from for SNF. instrument lens inspector requests floor care specialist?s phone number ([phone]) to discuss updates further and call her back. ECONOMIC SPECIALIST informs patient the difference between SNF and assisted living and reported that instrument lens inspector are looking into options available to patient. ECONOMIC SPECIALIST contacts Elida at [facility] (ph. [phone]) and reviews patient file. Elida reports that [facility] may have availability tonight for a bed but it is uncertain and cannot take him without current prescriptions. It was reported that insurance is not covered for assisted living and out of pocket cost will be $9000 for 30 days. ECONOMIC SPECIALISTMee Sandoval consulted with Dr. Prakash who confirms that ED is unable to provide scripts for all of patient?s home prescriptions for stay at assisted living. ECONOMIC SPECIALIST contact PCP Dr. Tavera?s office ), spoke with nurse and requests prescriptions to be faxed to [facility] if patient is to go to facility, nurse stated that patient just called requesting this as well. ECONOMIC SPECIALIST provides phone number for [facility]. CELESTINA Sandoval informs patient and that patient does not qualify for SNF and instrument lens inspector contacted [facility] assisted living. ECONOMIC SPECIALIST informed patient and about the cost of assisted living. Patient and stated that they would like to leave at this time and cannot pay the [facility]ett of assisted living. Patient?s reported that a howell is coming to build a ramp at the home this week and family is coming to assist in the home 11-10-20. CELESTINA Sandoval explains purpose of caregiving and provides senior resource guide to patient. CELESTINA Sandoval reviews the above and informs CASSIE Mcnally and Dr. Prakash with patient?s desire to leave. Plan: discharge to home with HH arranged at last hospital stay. CELESTINA Marroquin
== END 2020-11-08 15:18 | disposition home or self-care (01) ==
LOC: ED 09:42
PROVIDERS: Emergency Provider Emergency Medicine; PCP Internal Medicine
DX: M79.645 Pain in left finger(s) (principal); M25.512 Pain in left shoulder
CPT/HCPCS: 73130; 96372; 99283; 99284; J1885

== ENCOUNTER 2020-11-23 12:32 | Emergency (ER) | payer OTHER, SELFPAY ==
[2020-11-06] VITALS: BMI 28.6
[2020-11-23 12:32] VITALS: BP 122/60; PULSE 71; RESP 16; TEMP 36.4; O2SAT 97; BMI 25.9
--- NOTE | 2020-11-23 14:08 | ED_ITS ---
HPI - Extremity Injury (Lower) General Chief Complaint: Extremity Injury, Lower Stated Complaint: Fall, Breathing Problems, Anemic, Twisted Right An Time Seen by Provider: 11/23/20 14:07 Source: patient and family Mode of arrival: Wheelchair Limitations: no limitations History of Present Illness HPI Narrative: This is a 75-year-old male who comes to the emergency department with complaint of chest, breathing problems, productive cough which per his 's description is tinged with small amounts of blood. Patient states this is not new but the breathing it difficulties and chest pain are. Patient has known anemia. He also had a traumatic open fracture dislocation November 05 and was taken to the OR for washout. And patient is anxious as he is running out of his narcotic pain medications. He states he has follow-up on with his primary care for refill of his Tylenol 3. He states he only has 3 tablets left of the #40 oxycodone that was prescribed by his orthopedic surgeon on 11/19/20. Patient and his states he has had significant tolerance developed in the past to narcotics and has severed from withdrawals and they are both anxious about this. Patient denies fevers. He denies any nausea or vomiting. He denies any diarrhea, melena or bloody stools. Patient denies any new urinary symptoms. He has not had any significant swelling that is new in his extremities or new numbness or weakness. He does continue to have pain in his lower extremity which he states is slowly decreasing but he is still requiring pain medication. Patient denies any current anticoagulation. Related Data Home Medications Medication Instructions Recorded Confirmed multivitamin [Multiple Vitamins] 1 tab PO DAILY #0 12/21/16 11/19/20 fluticasone propionate 1 spray INTRANASAL DAILY #0 11/03/17 11/19/20 trazodone 400 tab PO BEDTIME 12/10/17 11/19/20 levalbuterol HCl 3 ml INHALATION Q6H PRN 10/17/18 11/19/20 metoprolol tartrate 100 mg PO BID 10/17/18 11/19/20 Zyrtec 10 mg PO DAILY 05/23/19 11/19/20 ferrous sulfate 325 mg PO DAILY 10/20/19 11/19/20 furosemide 40 mg PO DAILY 10/20/19 11/19/20 Previous Rx's Medication Instructions Recorded levalbuterol tartrate [Xopenex HFA] 1 puff INHALATION Q4-6H PRN #15 06/23/18 gram docusate sodium [DOK] 100 mg PO BID PRN #30 cap 05/28/19 acetaminophen [Athenol] 650 mg PO Q6H PRN #60 tab 11/07/20 enoxaparin [Lovenox] 40 mg SUBCUT DAILY #40 ml 11/07/20 oxycodone 10 mg PO Q4-5H PRN #60 tab 11/07/20 oxycodone 5 mg PO Q6H PRN #10 tab 11/23/20 Allergies Allergy/AdvReac Type Severity Reaction Status Date / Time celecoxib [CELECOXIB] Allergy Mild SWELLING Verified 11/23/20 12:49 latex [LATEX] Allergy Mild RASH Verified 11/23/20 12:49 W/EXTENDED EXPOSURE Sulfa (Sulfonamide Allergy Mild RASH Verified 11/23/20 12:49 Antibiotics) [SULFA (SULFONAMIDE ANTIBIOTICS)] varenicline [VARENICLINE] AdvReac Severe Paranoia Verified 11/23/20 12:49 buprenorphine [BUPRENORPHINE] AdvReac Mild NAUSEA, Verified 11/23/20 12:49 DIZZINESS hyoscyamine [HYOSCYAMINE] AdvReac Mild LEG Verified 11/23/20 12:49 JERKING, ANXIETY, NAUSEA W/I MINUTES Rtrnipn-Pgh-Kkx Reductase AdvReac Mild WEAK Verified 11/23/20 12:49 Inhibitor MUSCLES [ABZGKNX-RAU-EDY REDUCTASE INHIBITOR] diazepam [From Valium] AdvReac Confusion Verified 11/23/20 12:49 Review of Systems Review of Systems ROS Unobtainable: All systems reviewed & are unremarkable except as noted in HPI and below Patient History Medical History Achalasia Anginal pain Asthma Atrial fibrillation Cervical spinal stenosis Chronic obstructive pulmonary disease (10/23/16) COPD (chronic obstructive pulmonary disease) Coronary artery disease History of aortic dissection (~08/2007) Hypertension Ischemic cardiomyopathy Narcotic dependence Neck pain, chronic Ventricular bigeminy Surgical History H/O arthroscopic knee surgery (11/15/17) History of arthroplasty of right knee History of bilateral total hip arthroplasty History of cardiac cath (~03/2014) History of esophageal surgery History of incision and drainage (~2016) History of prior ablation treatment (~03/2017) History of surgery Hx of cholecystectomy Hx of hernia repair Hx of sinus surgery S/P CABG x 3 (~08/2007) S/P cervical spinal fusion S/P lumbar fusion Family History Mother Stroke Social History household members: spouse Smoking Status: Former smoker alcohol intake: current substance use type: does not use Smoking Status: Former smoker alcohol intake frequency: a few times a week Substance Use Type: does not use Exam Narrative Exam Narrative: GENERAL: Alert and oriented x three, elderly appearing male in mild distress. HEENT: Head normocephalic, atraumatic, EOMI, pupils reactive, face symmetric, moist mucous membranes NECK: Supple, full range of motion CARDIOVASCULAR: Regular rate and rhythm without murmurs, rubs or gallops. RESPIRATORY: Breath sounds equal bilaterally, mild right lower lobe expiratory wheeze no rales or rhonchi. No tachypnea. No accessory muscle use. Patient speaks in full sentences. ABDOMEN: Soft, nontender. Normoactive bowel sounds all 4 quadrants. No guardin g or rebound, rigidity, no mass : No CVA tenderness EXTREMITIES: Normal range of motion, no clubbing or edema of left lower extremity. Patient's right lower extremity is in a walking boot. Patient toes do not appear swollen cap refill is intact at less than 2 seconds. NEUROLOGICAL: Cranial nerves II through XII grossly intact. Moving all extremities SKIN: Warm, dry, no petechiae, no rashes or lesions. Initial Vital Signs Initial Vital Signs: Vital Signs Temperature 97.6 F 11/23/20 12:32 Pulse Rate 71 11/23/20 12:32 Respiratory Rate 16 11/23/20 12:32 Blood Pressure 122/60 11/23/20 12:32 Pulse Oximetry 97 11/23/20 12:32 Scores PERC Score Age greater than or equal to 50 years: Yes Heart rate greater than or equal to 100 bpm: No Room Air O2 Sat less than 95%: No Unilateral leg swelling: No Recent trauma or surgery: Yes Hemoptysis: Yes Prior PE or DVT: No Hormone Use: No Total PERC Score: 3 Course Orders Ordered: ED Orders 11/23/20 14:28 XR chest 1V Stat EKG-12 Lead Stat 11/23/20 14:35 Complete Blood Count AUTO DIFF Stat Comprehensive Metabolic Panel Stat D Dimer Stat Lipase Stat NT-proBNP (BNP-Adult 18+) Stat Troponin & CK Cardiac Panel Stat 11/23/20 14:40 COVID19 -Nasal swab/Pre-Proc Stat 11/23/20 15:52 CT angio chest PE protocol Stat Discontinued Medications Albuterol (Albuterol 2.5 Mg/3 Ml Neb (Adult)) 2.5 mg INH NOW ONE Stop: 11/23/20 14:30 Albuterol (Albuterol 2.5 Mg/3 Ml Neb (Adult)) 2.5 mg INH NOW ONE Stop: 11/23/20 15:53 Last Admin: 11/23/20 16:20 Dose: 2.5 mg Documented by: LEANA Oxycodone HCl (Oxycodone Ir 5 Mg Tablet) 10 mg PO NOW ONE Stop: 11/23/20 14:54 Last Admin: 11/23/20 15:01 Dose: 10 mg Documented by: MARY ANNE Reevaluation(s) Reevaluation #1: Updated patient of current findings. Would like to get CT Angio to rule out PE as patient is high risk. Patient is agreeable. Patient is quite concerned about withdrawing from narcotics. Time: 16:02 Vital Signs Vital signs: Vital Signs - 8 hr 11/23/20 12:32 11/23/20 16:20 11/23/20 17:20 Temperature 97.6 F Pulse Rate 71 74 63 Respiratory Rate 16 18 16 Blood Pressure 122/60 120/69 Pulse Oximetry 97 96 98 MDM - Extremity Injury (Lower) Lab Data Attestation: I reviewed the patient's lab results. Result diagrams: 11/23/20 14:35 11/23/20 14:35 Labs: Lab Results 11/23/20 11/23/20 11/23/20 Range/Units 14:35 14:35 14:35 WBC 7.4 (4.5-11.0) X10^3/uL RBC 4.37 L (4.5-5.9) X10^6/uL Hgb 10.1 L (13.5-17.5) g/dL Hct 33.1 L (41-53) % MCV 75.7 L (80-100) fL MCH 23.0 L (26-34) PG MCHC 30.4 (30-36) % RDW 26.0 H (11.6-14.8) % Plt Count 446 H (150-400) X10^3/uL Neut % (Auto) 65.5 (50-75) % Lymph % (Auto) 16.4 L (25-40) % [place] % (Auto) 9.6 (3-14) % Eos % (Auto) 7.2 H (2-4) % Baso % (Auto) 1.3 (0-2) % Neut # (Auto) 4800 (0994-0088) /uL Lymph # (Auto) 1200 (2324-3220) /uL [place] # (Auto) 700 (0-900) /uL Eos # (Auto) 500 H (0-450) /uL Baso # (Auto) 100 (0-100) /uL RBC Morphology See below Hypochromasia 1+ H Anisocytosis 2+ H D-Dimer 747 H (<230) ng/mL Sodium 133 L (137-145) mmol/L Potassium 5.5 H (3.4-5.1) mmol/L Chloride 99 (98-107) mmol/L Carbon Dioxide 30 (22-32) mmol/L BUN 13 (9-20) mg/dL Creatinine 0.71 (0.66-1.25) mg/dL Estimated GFR > 60.0 (>60) mL/min BUN/Creatinine Ratio 18.3 (6-22) Glucose 111 H (80-110) mg/dL Calcium 9.3 (8.4-10.2) mg/dL Total Bilirubin 0.3 (0.2-1.3) mg/dL AST 26 (17-59) IU/L ALT 14 (<50) IU/L Alkaline Phosphatase 74 (38-126) U/L Total Creatine Kinase 94 (55-170) U/L CK-MB (CK-2) TNP CK-MB (CK-2) Rel Index TNP Troponin I < 0.012 (0.01-0.034) ng/mL NT-Pro-B Natriuret Pep 250 (<450) pg/mL Total Protein 7.2 (6.3-8.2) g/dL Albumin 4.1 (3.5-5.0) g/dL Globulin 3.1 (1.7-4.1) g/dL Albumin/Globulin Ratio 1.3 (1.0-2.8) Lipase 112 (23-300) U/L SARS-CoV-2 (PCR) (Negative) 11/23/20 Range/Units 14:40 WBC (4.5-11.0) X10^3/uL RBC (4.5-5.9) X10^6/uL Hgb (13.5-17.5) g/dL Hct (41-53) % MCV (80-100) fL MCH (26-34) PG MCHC (30-36) % RDW (11.6-14.8) % Plt Count (150-400) X10^3/uL Neut % (Auto) (50-75) % Lymph % (Auto) (25-40) % [place] % (Auto) (3-14) % Eos % (Auto) (2-4) % Baso % (Auto) (0-2) % Neut # (Auto) (5051-0480) /uL Lymph # (Auto) (6698-8909) /uL [place] # (Auto) (0-900) /uL Eos # (Auto) (0-450) /uL Baso # (Auto) (0-100) /uL RBC Morphology Hypochromasia Anisocytosis D-Dimer (<230) ng/mL Sodium (137-145) mmol/L Potassium (3.4-5.1) mmol/L Chloride (98-107) mmol/L Carbon Dioxide (22-32) mmol/L BUN (9-20) mg/dL Creatinine (0.66-1.25) mg/dL Estimated GFR (>60) mL/min BUN/Creatinine Ratio (6-22) Glucose (80-110) mg/dL Calcium (8.4-10.2) mg/dL Total Bilirubin (0.2-1.3) mg/dL AST (17-59) IU/L ALT (<50) IU/L Alkaline Phosphatase (38-126) U/L Total Creatine Kinase (55-170) U/L CK-MB (CK-2) CK-MB (CK-2) Rel Index Troponin I (0.01-0.034) ng/mL NT-Pro-B Natriuret Pep (<450) pg/mL Total Protein (6.3-8.2) g/dL Albumin (3.5-5.0) g/dL Globulin (1.7-4.1) g/dL Albumin/Globulin Ratio (1.0-2.8) Lipase (23-300) U/L SARS-CoV-2 (PCR) Negative (Negative) Imaging Data Chest x-ray: Radiologist's Impression: [address] [id number] ReportSigned Patient: Karthikeyan Yo [facility]#: [id number]: 5Acct:[id number]/Sex: 75 / MDate of Service: 11/23/20Loc: EDAccession Number: [id number] Procedure: XR chest 1V Ordering Provider: Saira Mccullough D.O. PROCEDURE: XR CHEST 1V INDICATIONS: chest pain, cough, concern for pna, recent LE surgery TECHNIQUE: One view of the chest was acquired. COMPARISON: [facility], , XR CHEST 1V, 11/01/2020, 15:12. FINDINGS: Surgical changes and devices: Postsurgical changes of the cervical spine, incompletely evaluated. Status post CABG. Lungs and pleura: Linear densities at the left lung base. No focal consolidation, pneumothorax, or pleural effusion. Mediastinum: Mediastinal contours appear normal. Heart size is normal. Bones and chest wall: No suspicious bony lesions. Overlying soft tissues appear unremarkable. IMPRESSION: Left basilar linear densities likely representing atelectasis/scarring, otherwise no evidence of an acute cardiopulmonary abnormality. Dictated by: Mike Walsh D.O. on 11/23/2020 at 13:52 Approved by: Mike Walsh D.O. on 11/23/2020 at 14:02 CT scan - chest: Radiologist's Impression: [address] [id number] Scan ReportSigned Patient: Karthikeyan Yo [facility]#: [id number]: 5Acct:[id number]/Sex: 75 / MDate of Service: 11/23/20Loc: EDAccession Number: [id number] Procedure: CT angio chest PE protocol Ordering Provider: Saira Mccullough D.O. PROCEDURE: CT ANGIO CHEST PE PROTOCOL INDICATIONS: chest pain, sob, ? hemoptysis, hx copd, recent leg fx TECHNIQUE: After the administration of intravenous contrast, 2 mm thick sections acquired from the pulmonary apices to the posterior costophrenic angles. 3-dimensional maximum intensity projection (MIP) coronal and sagittal reformats were then acquired through the thorax. For radiation dose reduction, the following was used: automated exposure control, adjustment of mA and/or kV according to patient size. COMPARISON: None. FINDINGS: Image quality: Excellent. Pulmonary arteries: Pulmonary arteries are normal in size, and demonstrate no intraluminal filling defects to suggest central pulmonary embolism. Lungs and pleura: Lungs are clear. No pleural effusions or pneumothorax. Central and peripheral airways are patent. Mediastinum: Heart size is normal, without pericardial effusion. Post CABG changes. Diffuse vascular calcifications throughout the [place] coronary arteries. Mild calcifications are noted within the replace coronary arteries. No right heart strain. [place] mediastinal lymph nodes. No mediastinal or hilar adenopathy by size criteria. The ascending aorta measures 4.0 centimeters at the level of the right pulmonary artery. There is diffuse vascular calcifications throughout the aorta. No evidence of dissection within the limits of this exam. There is mild circumferential wall thickening of the distal esophagus. There is layering fluid noted within the esophagus to the level of approximately C6. Bones and chest wall: No suspicious bony lesions. Multilevel degenerative changes of the spine without acute osseous abnormality or aggressive appearing osseous l esion. Ribs and thoracic spine appear intact throughout. Thyroid gland is unremarkable. No axillary or supraclavicular adenopathy. Abdomen: Visualized upper abdominal solid organs appear normal in the early arterial phase of enhancement. Status post cholecystectomy. Postsurgical changes of the lower cervical spine without evidence of complication. Diffuse vascular calcifications are noted throughout the abdominal aorta which is otherwise normal in course and caliber. IMPRESSION: No evidence of pulmonary embolism or right heart strain. Circumferential wall thickening of the esophagus with fluid extending to the level of the mid esophagus suggestive of reflux. Recommend clinical correlation and consider direct evaluation with endoscopy. Dictated by: Mike Walsh D.O. on 11/23/2020 at 15:39 Approved by: Mike Walsh D.O. on 11/23/2020 at 15:47 ECG Data Attestation: I personally reviewed and interpreted this ECG as follows: Prior ECG tracings: available for review Interpretation: Sinus rhythm premature atrial complexes. Rate of 69. Two 8 QRS 88 QTC 477. No acute ST elevation appreciated. Sinus rhythm with premature atrial complexes with 11/01/2020. [facility] Narrative Medical decision making narrative: This is a 75-year-old male comes in with complaint of chest pain shortness of breath and at times a small amount of hemoptysis per his as well as concern for running out of his narcotic pain medication. Patient is high risk for DVT and PE. He had a recent open fracture of his right lower extremity and had surgical repair as well as washout. According to patient's current list of medications he was on Lovenox but is currently not anticoagulated disease approximately 3 weeks from his surgical repair. EKG labs show no acute EKG changes and he has had ongoing pain to this minutes a cardiac cause less likely. No obvious infectious changes are noted although he does have some mild wheeze. Patient has known COPD and has had minimal improvement with his breathing treatments. CT angiography was ordered as his D-dimer is also elevated and he is high risk and cannot be appropriately risk stratified without imaging. Negative for PE, patient does have some dilation of the aortic root which does not appear new. He also has some thickening of the esophagus which may be related to his discomfort. Patient [place] shows that he filled 40 tablets of oxycodone on the as well as 60 tablets on November 07. He had 84 tablets of Tylenol 3 filled on October 31. Discussed with patient he cannot return to us for pain medication refills and was given a one time dose of #10 tabs oxycodone. Patient expressed verbal understanding. Discharge Plan Departure Patient Disposition: Home Clinical Impression: Chest pain, Dyspnea, Request for narcotic pain medication Activity Restrictions/Additional Instructions: Follow up with your physician on Wednesday morning. Continue home medications as prescribed. Randall James in [place] for prescriptions. Please return for fevers, new chest pain, shortness of breath, lightheadedness or passing out, persistent vomiting, black or bloody stools, new swelling, rapidly worsening pain in your extremity or other new or concerning symptoms. Prescriptions: New oxycodone 5 mg tablet 5 mg PO Q6H PRN (Reason: pain) Qty: 10 RF: 0 No Action multivitamin [Multiple Vitamins] 1 EACH tablet 1 tab PO DAILY Qty: 0 RF: 0 fluticasone propionate 16 GM spray,suspension 1 spray Intranasal DAILY Qty: 0 RF: 0 furosemide 40 mg Tablet 40 mg PO DAILY RF: 0 ferrous sulfate 325 mg (65 mg iron) tablet,delayed release (DR/EC) 325 mg PO DAILY RF: 0 oxycodone 5 mg Tablet 10 mg PO Q4-5H PRN (Reason: Pain, Severe (7-10)) Qty: 60 RF: 0 enoxaparin [Lovenox] 40 mg/0.4 mL Syringe 40 mg SUBCUT DAILY Qty: 40 RF: 0 acetaminophen [Athenol] 325 mg tablet 650 mg PO Q6H PRN (Reason: pain) Qty: 60 RF: 0 trazodone 100 mg tablet 400 tab PO BEDTIME RF: 0 levalbuterol tartrate [Xopenex HFA] 45 mcg/actuation HFA aerosol inhaler 1 puff INHALATION Q4-6H PRN (Reason: shortness of breath or wheezing) Qty: 15 RF: 0 metoprolol tartrate 100 mg tablet 100 mg PO BID RF: 0 levalbuterol HCl 1.25 mg/3 mL solution for nebulization 3 ml Inhalation Q6H PRN (Reason: Shortness Of Breath) RF: 0 Zyrtec 10 mg Capsule 10 mg PO DAILY RF: 0 docusate sodium [DOK] 100 mg Capsule 100 mg PO BID PRN (Reason: constipation) Qty: 30 RF: 0 Referrals: Romi Tavera MD [Primary Care Provider] - Luis Farias MD [Physician] -
--- NOTE | 2020-11-23 14:28 | DI.RAD.S_ITS ---
PROCEDURE: XR CHEST 1V INDICATIONS: chest pain, cough, concern for pna, recent LE surgery TECHNIQUE: One view of the chest was acquired. COMPARISON: [facility], CR, XR CHEST 1V, 11/01/2020, 15:12. FINDINGS: Surgical changes and devices: Postsurgical changes of the cervical spine, incompletely evaluated. Status post CABG. Lungs and pleura: Linear densities at the left lung base. No focal consolidation, pneumothorax, or pleural effusion. Mediastinum: Mediastinal contours appear normal. Heart size is normal. Bones and chest wall: No suspicious bony lesions. Overlying soft tissues appear unremarkable. IMPRESSION: Left basilar linear densities likely representing atelectasis/scarring, otherwise no evidence of an acute cardiopulmonary abnormality. Dictated by: Mike Walsh D.O. on 11/23/2020 at 13:52 Approved by: Mike Walsh D.O. on 11/23/2020 at 14:02
--- NOTE | 2020-11-23 14:42 | PC.NURSE ---
Pt is sitting in wheelchair, breathing even, unlabroed, speaking full sentences, walking boot on right foot. C/o right foot pain and SOB Pt is wheezes bilateral lobes, with good saturation.
[2020-11-23 14:55] LABS: Alanine Aminotransferase 14 IU/L (<50); Albumin 4.1 g/dL (3.5-5.0); Albumin Globulin Ratio 1.3 (1.0-2.8); Alkaline Phosphatase 74 U/L (38-126); Aspartate Aminotransferase 26 IU/L (17-59); BUN Creatinine Ratio 18.3 (6-22); Bilirubin Total 0.3 mg/dL (0.2-1.3); Blood Urea Nitrogen 13 mg/dL (9-20); Calcium 9.3 mg/dL (8.4-10.2); Carbon Dioxide 30 mmol/L (22-32); Chloride 99 mmol/L (98-107); Creatine Kinase 94 U/L (55-170); Estimated Glomerular Filt Rate > 60.0 mL/min (>60); Globulin 3.1 g/dL (1.7-4.1); Glucose 111 mg/dL (80-110); HEMOLYSIS < 15 (0-50); Lipase 112 U/L (23-300); Sodium 133 mmol/L (137-145); Total Protein 7.2 g/dL (6.3-8.2)
[2020-11-23 14:56] LABS: D Dimer 747 ng/mL (<230); Potassium 5.5 mmol/L (3.4-5.1)
[2020-11-23 14:59] LABS: Add Manual Diff / Slide Review NO; Basophils Absolute Auto 100 /uL (0-100); Basophils Percent Auto 1.3 % (0-2); Eosinophils Absolute Auto 500 /uL (0-450); Eosinophils Percent Auto 7.2 % (2-4); Hematocrit 33.1 % (41-53); Hemoglobin 10.1 g/dL (13.5-17.5); Lymphocytes Absolute Auto 1200 /uL (1100-4500); Lymphocytes Percent Auto 16.4 % (25-40); Mean Corpuscular HGB Conc 30.4 % (30-36); Mean Corpuscular Volume 75.7 fL (80-100); Monocytes Absolute Auto 700 /uL (0-900); Monocytes Percent Auto 9.6 % (3-14); Neutrophils Absolute Auto 4800 /uL (1500-7000); Neutrophils Percent Auto 65.5 % (50-75); Platelet Count 446 X10^3/uL (150-400); Red Blood Cell Count 4.37 X10^6/uL (4.5-5.9); White Blood Cell Count 7.4 X10^3/uL (4.5-11.0)
[2020-11-23] MEDS: OXYCODONE IR 5 MG TABLET 10 MG PO (15:01)
[2020-11-23 15:07] LABS: NT-proBNP (BNP-Adult 18+) 250 pg/mL (<450); Troponin I < 0.012 ng/mL (0.01-0.034)
[2020-11-23 15:15] LABS: COVID19 -Nasal RAPID Negative (Negative)
[2020-11-23 15:42] LABS: Anisocytosis 2+; Hypochromasia 1+
--- NOTE | 2020-11-23 15:52 | DI.CT.S_ITS ---
PROCEDURE: CT ANGIO CHEST PE PROTOCOL INDICATIONS: chest pain, sob, ? hemoptysis, hx copd, recent leg fx TECHNIQUE: After the administration of intravenous contrast, 2 mm thick sections acquired from the pulmonary apices to the posterior costophrenic angles. 3-dimensional maximum intensity projection (MIP) coronal and sagittal reformats were then acquired through the thorax. For radiation dose reduction, the following was used: automated exposure control, adjustment of mA and/or kV according to patient size. COMPARISON: None. FINDINGS: Image quality: Excellent. Pulmonary arteries: Pulmonary arteries are normal in size, and demonstrate no intraluminal filling defects to suggest central pulmonary embolism. Lungs and pleura: Lungs are clear. No pleural effusions or pneumothorax. Central and peripheral airways are patent. Mediastinum: Heart size is normal, without pericardial effusion. Post CABG changes. Diffuse vascular calcifications throughout the [place] coronary arteries. Mild calcifications are noted within the replace coronary arteries. No right heart strain. [place] mediastinal lymph nodes. No mediastinal or hilar adenopathy by size criteria. The ascending aorta measures 4.0 centimeters at the level of the right pulmonary artery. There is diffuse vascular calcifications throughout the aorta. No evidence of dissection within the limits of this exam. There is mild circumferential wall thickening of the distal esophagus. There is layering fluid noted within the esophagus to the level of approximately C6. Bones and chest wall: No suspicious bony lesions. Multilevel degenerative changes of the spine without acute osseous abnormality or aggressive appearing osseous lesion. Ribs and thoracic spine appear intact throughout. Thyroid gland is unremarkable. No axillary or supraclavicular adenopathy. Abdomen: Visualized upper abdominal solid organs appear normal in the early arterial phase of enhancement. Status post cholecystectomy. Postsurgical changes of the lower cervical spine without evidence of complication. Diffuse vascular calcifications are noted throughout the abdominal aorta which is otherwise normal in course and caliber. IMPRESSION: No evidence of pulmonary embolism or right heart strain. Circumferential wall thickening of the esophagus with fluid extending to the level of the mid esophagus suggestive of reflux. Recommend clinical correlation and consider direct evaluation with endoscopy. Dictated by: Mike Walsh D.O. on 11/23/2020 at 15:39 Approved by: Mike Walsh D.O. on 11/23/2020 at 15:47
[2020-11-23 16:20] VITALS: PULSE 74; RESP 18; O2SAT 96
[2020-11-23] MEDS: ALBUTEROL 2.5 MG/3 ML NEB (ADULT) INH (16:20)
--- NOTE | 2020-11-23 16:24 | RT ---
pt ruba tx well, no distress noted and pt on room air.
[2020-11-23 17:20] VITALS: BP 120/69; PULSE 63; RESP 16; O2SAT 98
== END 2020-11-23 17:31 | disposition home or self-care (01) ==
PROVIDERS: Emergency Provider Emergency Medicine; PCP Internal Medicine
DX: R07.9 Chest pain, unspecified (principal); R06.00 Dyspnea, unspecified; R05 Cough; Z20.822 Contact with and (suspected) exposure to COVID-19
CPT/HCPCS: 36415; 71045; 71275; 80053; 82550; 83690; 83880; 84484; 85025; 85379; 87635; 93005; 93010; 94640; 99284; C9803; J7613; Q9967

== ENCOUNTER → 2020-12-29 11:11 | Outpatient (CLI) | payer OTHER, SELFPAY ==
[2020-11-06] VITALS: BMI 28.6
--- NOTE | 2020-12-29 11:16 | DI.RAD.S_ITS ---
PROCEDURE: XR CHEST 2V INDICATIONS: COUGH TECHNIQUE: 2 views of the chest were acquired. COMPARISON: [facility], CT, CT ANGIO CHEST PE PROTOCOL, 11/23/2020, 15:56. [facility], CR, XR CHEST 1V, 11/01/2020, 15:12. [facility], CR, XR CHEST 1V, 11/23/2020, 14:31. FINDINGS: Surgical changes and devices: Cervical spine fixation hardware is seen. Post CABG changes are seen. Lungs and pleura: Lungs are clear. No pleural effusions or pneumothorax. Mediastinum: Mediastinal contours are normal. Heart size is normal. Bones and chest wall: No suspicious bony abnormalities. Age-appropriate bony degenerative changes are seen. Soft tissues appear unremarkable. IMPRESSION: No acute cardiopulmonary process is seen. Postoperative and degenerative changes are seen. Dictated by: Arnie Cook M.D. on 12/29/2020 at 10:47 Approved by: Arnie Cook M.D. on 12/29/2020 at 10:48
== END ==
PROVIDERS: PCP Internal Medicine; Referring Provider Internal Medicine Critical Care Medicine; Visit Provider Internal Medicine Critical Care Medicine
DX: J44.9 Chronic obstructive pulmonary disease, unspecified (principal); R06.00 Dyspnea, unspecified; R05 Cough; Z95.1 Presence of aortocoronary bypass graft
CPT/HCPCS: 71046

== ENCOUNTER → 2020-12-31 10:39 | Outpatient (CLI) | payer OTHER, SELFPAY ==
[2020-11-06] VITALS: BMI 28.6
== END ==
PROVIDERS: PCP Internal Medicine; Referring Provider Internal Medicine Critical Care Medicine; Visit Provider Internal Medicine Critical Care Medicine
DX: J44.9 Chronic obstructive pulmonary disease, unspecified (principal)
CPT/HCPCS: 87070; 87205

== ENCOUNTER 2021-03-06 09:56 | Emergency (ER) | payer OTHER, SELFPAY ==
[2020-11-06] VITALS: BMI 28.6
[2021-03-06] VITALS (10 sets, daily range): BP systolic 115–170; BP diastolic 71–107; PULSE 67–89; RESP 16–23; TEMP 36.8; O2SAT 92–96; BMI 27.7
--- NOTE | 2021-03-06 10:04 | DI.RAD.S_ITS ---
PROCEDURE: XR CHEST 1V INDICATIONS: chest pain TECHNIQUE: One view of the chest was acquired. COMPARISON: [facility], CR, XR CHEST 2V, 12/29/2020, 11:23. FINDINGS: Surgical changes and devices: Postsurgical changes again seen from median sternotomy and CABG. Postsurgical changes are seen in the included cervical spine. Lungs and pleura: Lungs are clear. No pleural effusions or pneumothorax. Mediastinum: Mediastinal contours appear normal. Heart size is normal. Bones and chest wall: No suspicious bony lesions. Overlying soft tissues appear unremarkable. IMPRESSION: No acute cardiopulmonary abnormality. Dictated by: Estiven Magana M.D. on 03/06/2021 at 10:25 Approved by: Estiven Magana M.D. on 03/06/2021 at 10:26
--- NOTE | 2021-03-06 10:10 | ED_ITS ---
HPI - Chest Pain General Chief Complaint: Headache Stated Complaint: coughing, asthma attack, sinus inf. sent by PCP Time Seen by Provider: 03/06/21 10:10 Source: patient Mode of arrival: Wheelchair Limitations: no limitations History of Present Illness HPI narrative: 76-year-old male former smoker with history of COPD and hypertension as well as AFib presents at the request of his primary care provider for upwards of 5 days of increased upper respiratory wheezing, shortness of breath, cough and congestion. He has had no fever or chills and has developed some sharp and stabbing chest pain that is worse with cough. He is not dizzy nor weak or lightheaded. He denies any exertional component, medication change or weight gain. He denies nausea, vomiting or diarrhea. Related Data Home Medications Medication Instructions Recorded Confirmed multivitamin (Multiple Vitamins) 1 tab PO DAILY #0 12/21/16 12/17/20 fluticasone propionate 50 1 spray INTRANASAL DAILY #0 11/03/17 12/17/20 mcg/actuation nasal spray,suspension trazodone 100 mg tablet 400 tab PO BEDTIME 12/10/17 12/17/20 levalbuterol HCl 1.25 mg/3 mL 3 ml INHALATION Q6H PRN 10/17/18 12/17/20 solution for nebulization metoprolol tartrate 100 mg tablet 100 mg PO BID 10/17/18 12/17/20 cetirizine 10 mg capsule (Zyrtec) 10 mg PO DAILY 05/23/19 12/17/20 ferrous sulfate 325 mg (65 mg 325 mg PO DAILY 10/20/19 12/17/20 iron) tablet,delayed release furosemide 40 mg tablet 40 mg PO DAILY 10/20/19 12/17/20 Previous Rx's Medication Instructions Recorded levalbuterol tartrate 45 1 puff INHALATION Q4-6H PRN #15 06/23/18 mcg/actuation aerosol inhaler gram (Xopenex HFA) docusate sodium 100 mg capsule 100 mg PO BID PRN #30 cap 05/28/19 (DOK) acetaminophen 325 mg tablet 650 mg PO Q6H PRN #60 tab 11/07/20 (Athenol) enoxaparin 40 mg/0.4 mL 40 mg SUBCUT DAILY #40 ml 11/07/20 subcutaneous syringe (Lovenox) oxycodone 5 mg tablet 10 mg PO Q4-5H PRN #60 tab 11/07/20 oxycodone 5 mg tablet 5 mg PO Q6H PRN #10 tab 11/23/20 benzonatate 100 mg capsule 100 mg PO TID PRN #14 cap 03/06/21 (Tesosielarnie Choi) doxycycline hyclate 100 mg tablet 100 mg PO BID #20 tab 03/06/21 prednisone 10 mg tablet See Rx Instructions .ROUTE 03/06/21 .COMPLEX #30 tab Allergies Allergy/AdvReac Type Severity Reaction Status Date / Time celecoxib [CELECOXIB] Allergy Mild SWELLING Verified 03/06/21 10:05 latex [LATEX] Allergy Mild RASH Verified 03/06/21 10:05 W/EXTENDED EXPOSURE Sulfa (Sulfonamide Allergy Mild RASH Verified 03/06/21 10:05 Antibiotics) [SULFA (SULFONAMIDE ANTIBIOTICS)] varenicline [VARENICLINE] AdvReac Severe Paranoia Verified 03/06/21 10:05 buprenorphine [BUPRENORPHINE] AdvReac Mild NAUSEA, Verified 03/06/21 10:05 DIZZINESS hyoscyamine [HYOSCYAMINE] AdvReac Mild LEG Verified 03/06/21 10:05 JERKING, ANXIETY, NAUSEA W/I MINUTES [id number] Reductase AdvReac Mild WEAK Verified 03/06/21 10:05 Inhibitor MUSCLES [[id number] REDUCTASE INHIBITOR] diazepam [From Valium] AdvReac Confusion Verified 03/06/21 10:05 Review of Systems Review of Systems Narrative: GENERAL: See HPI HEENT: Denies sinus pain, ear pain, sore throat, difficulty swallowing, dizziness. RESPIRATORY: See HPI CARDIOVASCULAR: See HPI GASTROINTESTINAL: Denies nausea, vomiting, abdominal pain, diarrhea, constipation, melena. : Denies dysuria, frequency, incontinence, hematuria, urinary retention. MUSCULOSKELETAL: denies weakness, joint pain, or bony pain SKIN: Denies rash, skin lesions, or other NEUROLOGIC: Denies weakness, headache, numbness, change in speech, confusion, seizures, incoordination. PSYCHIATRIC: No concerning psychosocial issues. 12 point review of systems is negative except for those stated above Patient History Medical History Achalasia Anginal pain Asthma Atrial fibrillation Cervical spinal stenosis Chronic obstructive pulmonary disease (10/23/16) COPD (chronic obstructive pulmonary disease) Coronary artery disease History of aortic dissection (~08/2007) Hypertension Ischemic cardiomyopathy Narcotic dependence Neck pain, chronic Ventricular bigeminy Surgical History H/O arthroscopic knee surgery (11/15/17) History of arthroplasty of right knee History of bilateral total hip arthroplasty History of cardiac cath (~03/2014) History of esophageal surgery History of incision and drainage (~2016) History of prior ablation treatment (~03/2017) History of surgery Hx of cholecystectomy Hx of hernia repair Hx of sinus surgery S/P CABG x 3 (~08/2007) S/P cervical spinal fusion S/P lumbar fusion Family History Mother Stroke Social History household members: spouse Smoking Status: Former smoker alcohol intake: current substance use type: does not use Smoking Status: Former smoker alcohol intake frequency: holidays/special occasions only Substance Use Type: does not use Exam Narrative Exam Narrative: GENERAL: [76] year old patient appears stated age. Well- developed patient, in mild distress. Coughing frequently HEAD: Atraumatic. Normocephalic. EYES: Pupils equal round and reactive. Extraocular motions intact. No scleral icterus. No injection or drainage. ENT: Clear nasal drainage Nose without bleeding, purulent drainage. Throat without erythema, tonsillar hypertrophy or exudate. Airway patent. NECK: Trachea midline. Non tender CARDIOVASCULAR: Regular rate and rhythm no clicks, rubs or gallops RESPIRATORY: Harsh lung sounds in wheeze noted throughout, no obvious rhonchi or rales GASTROINTESTINAL: Abdomen soft, non-tender, nondistended. EXTREMITIES: No edema or joint tenderness. BACK: Nontender without deformity or crepitance. No flank tenderness. NEURO: AOx3. SKIN: No rash or erythema of visible areas Initial Vital Signs Initial Vital Signs: Vital Signs Pulse Rate 76 03/06/21 10:02 Blood Pressure 115/72 03/06/21 10:02 Pulse Oximetry 94 03/06/21 10:02 Course Orders Ordered: Discontinued Medications Albuterol (Albuterol 2.5 Mg/3 Ml Neb (Adult)) 2.5 mg INH NOW ONE Stop: 03/06/21 11:59 Last Admin: 03/06/21 12:09 Dose: 2.5 mg Documented by: FERNANDO Albuterol/Ipratropium (Albuterol/Ipratropium 3 Ml Ampul) 3 ml INH NOW ONE Stop: 03/06/21 11:08 Last Admin: 03/06/21 11:08 Dose: 3 ml Documented by: FRANCHESKA Methylprednisolone (Methylprednisolone 125 Mg/2 Ml Vial) 125 mg IV NOW ONE Stop: 03/06/21 10:24 Last Admin: 03/06/21 11:03 Dose: 125 mg Documented by: BARAK Vital Signs Vital signs: Vital Signs - 8 hr 03/06/21 11:30 03/06/21 12:00 03/06/21 12:10 Pulse Rate 69 89 69 Respiratory Rate 22 22 16 Blood Pressure 161/75 H 156/107 H Pulse Oximetry 94 96 MDM - Chest Pain Lab Data Result diagrams: 03/06/21 10:06 03/06/21 10:06 Labs: Lab Results 03/06/21 03/06/21 03/06/21 Range/Units 10:06 10:06 10:06 WBC 6.0 (4.5-11.0) X10^3/uL RBC 4.71 (4.5-5.9) X10^6/uL Hgb 14.2 (13.5-17.5) g/dL Hct 42.2 (41-53) % MCV 89.8 (80-100) fL MCH 30.2 (26-34) PG MCHC 33.7 (30-36) % RDW 15.6 H (11.6-14.8) % Plt Count 201 (150-400) X10^3/uL Neut % (Auto) 56.0 (50-75) % Lymph % (Auto) 18.7 L (25-40) % Rooks % (Auto) 10.2 (3-14) % Eos % (Auto) 13.9 H (2-4) % Baso % (Auto) 1.2 (0-2) % Neut # (Auto) 3400 (8846-0658) /uL Lymph # (Auto) 1100 (0806-9869) /uL Rooks # (Auto) 600 (0-900) /uL Eos # (Auto) 800 H (0-450) /uL Baso # (Auto) 100 (0-100) /uL Sodium 140 (137-145) mmol/L Potassium 4.4 (3.4-5.1) mmol/L Chloride 104 (98-107) mmol/L Carbon Dioxide 28 (22-32) mmol/L BUN 11 (9-20) mg/dL Creatinine 0.74 (0.66-1.25) mg/dL Estimated GFR > 60.0 (>60) mL/min BUN/Creatinine Ratio 14.9 (6-22) Glucose 117 H (80-110) mg/dL Calcium 9.4 (8.4-10.2) mg/dL Total Bilirubin 0.8 (0.2-1.3) mg/dL AST 29 (17-59) IU/L ALT 21 (<50) IU/L Alkaline Phosphatase 71 (38-126) U/L Total Creatine Kinase 109 (55-170) U/L CK-MB (CK-2) 2.76 H (<2.37) ng/mL CK-MB (CK-2) Rel Index 2.5 (1.5-5.0) % Troponin I < 0.012 (0.01-0.034) ng/mL Total Protein 7.8 (6.3-8.2) g/dL Albumin 4.6 (3.5-5.0) g/dL Globulin 3.2 (1.7-4.1) g/dL Albumin/Globulin Ratio 1.4 (1.0-2.8) Lipase 56 (23-300) U/L SARS-CoV-2 (PCR) Negative (Negative) Imaging Data Chest x-ray: Radiologist's Impression: [address] [id number] ReportSigned Patient: Karthikeyan Yo [facility]#: [id number]: 5Acct:[id number]/Sex: 76 / MDate of Service: 03/06/21Loc: EDAccession Number: [id number] Procedure: XR chest 1V Ordering Provider: Allan Kaye D.O. PROCEDURE: XR CHEST 1V INDICATIONS: chest pain TECHNIQUE: One view of the chest was acquired. COMPARISON: [facility], CR, XR CHEST 2V, 12/29/2020, 11:23. FINDINGS: Surgical changes and devices: Postsurgical changes again seen from median sternotomy and CABG. Postsurgical changes are seen in the included cervical spine. Lungs and pleura: Lungs are clear. No pleural effusions or pneumothorax. Mediastinum: Mediastinal contours appear normal. Heart size is normal. Bones and chest wall: No suspicious bony lesions. Overlying soft tissues appear unremarkable. IMPRESSION: No acute cardiopulmonary abnormality. Dictated by: Estiven Magana M.D. on 03/06/2021 at 10:25 Approved by: Estiven Magana M.D. on 03/06/2021 at 10:26 [facility] Narrative Medical decision making narrative: Patient is feeling much better after above- stated therapies. He demonstrates no significant work of breathing or measured hypoxia. Physical exam, vitals and labs are very reassuring. Patient given return precautions, questions answered to his apparent satisfaction Discharge Plan Departure Patient Disposition: Home Clinical Impression: COPD exacerbation, Atypical pneumonia Instructions: DI for Chronic Obstructive Pulmonary Disease, DI for Atypical Pneumonia Activity Restrictions/Additional Instructions: *You have been diagnosed with [atypical pneumonia and COPD exacerbation] *What to do: *Please continue to take your regular medications as directed. [x ] New medication prescriptions sent to your pharmacy: [[facility] in [place]] [ ] New medication written as a paper prescription [ ] No new medications given *Please follow up with your primary care provider in 2-3 days, call for an appointment. Let them know you were seen in the Emergency Department and that we ask that you be seen in follow up. We will electronically transmit a record of today's note if your PCP is in our system *If you do not have a primary care provider please contact the [facility] Resource line at [phone]. They will ask some questions about your medical history and help get you set up with a doctor in the community. *Return to Emergency Department if you should have any new, worsening or concerning symptoms, such as [fever greater than 101 F, shaking chills, worsening pain, persistent vomiting or other bothersome symptoms] Prescriptions: New benzonatate [Tessalon Perles] 100 mg capsule 100 mg PO TID PRN (Reason: cough) Qty: 14 RF: 0 doxycycline hyclate 100 mg tablet 100 mg PO BID Qty: 20 RF: 0 prednisone 10 mg tablet See Rx Instructions .ROUTE .COMPLEX Qty: 30 RF: 0 No Action multivitamin [Multiple Vitamins] 1 EACH tablet 1 tab PO DAILY Qty: 0 RF: 0 fluticasone propionate 16 GM spray,suspension 1 spray Intranasal DAILY Qty: 0 RF: 0 furosemide 40 mg Tablet 40 mg PO DAILY RF: 0 ferrous sulfate 325 mg (65 mg iron) tablet,delayed release (DR/EC) 325 mg PO DAILY RF: 0 oxycodone 5 mg Tablet 10 mg PO Q4-5H PRN (Reason: Pain, Severe (7-10)) Qty: 60 RF: 0 enoxaparin [Lovenox] 40 mg/0.4 mL Syringe 40 mg SUBCUT DAILY Qty: 40 RF: 0 acetaminophen [Athenol] 325 mg tablet 650 mg PO Q6H PRN (Reason: pain) Qty: 60 RF: 0 oxycodone 5 mg tablet 5 mg PO Q6H PRN (Reason: pain) Qty: 10 RF: 0 trazodone 100 mg tablet 400 tab PO BEDTIME RF: 0 levalbuterol tartrate [Xopenex HFA] 45 mcg/actuation HFA aerosol inhaler 1 puff INHALATION Q4-6H PRN (Reason: shortness of breath or wheezing) Qty: 15 RF: 0 metoprolol tartrate 100 mg tablet 100 mg PO BID RF: 0 levalbuterol HCl 1.25 mg/3 mL solution for nebulization 3 ml Inhalation Q6H PRN (Reason: Shortness Of Breath) RF: 0 Zyrtec 10 mg Capsule 10 mg PO DAILY RF: 0 docusate sodium [DOK] 100 mg Capsule 100 mg PO BID PRN (Reason: constipation) Qty: 30 RF: 0 Referrals: Romi Tavera MD [Primary Care Provider] -
[2021-03-06 10:19] LABS: Add Manual Diff / Slide Review NO; Basophils Absolute Auto 100 /uL (0-100); Basophils Percent Auto 1.2 % (0-2); Eosinophils Absolute Auto 800 /uL (0-450); Eosinophils Percent Auto 13.9 % (2-4); Hematocrit 42.2 % (41-53); Hemoglobin 14.2 g/dL (13.5-17.5); Lymphocytes Absolute Auto 1100 /uL (1100-4500); Lymphocytes Percent Auto 18.7 % (25-40); Mean Corpuscular HGB Conc 33.7 % (30-36); Mean Corpuscular Hemoglobin 30.2 PG (26-34); Mean Corpuscular Volume 89.8 fL (80-100); Monocytes Absolute Auto 600 /uL (0-900); Monocytes Percent Auto 10.2 % (3-14); Neutrophils Absolute Auto 3400 /uL (1500-7000); Platelet Count 201 X10^3/uL (150-400); Red Blood Cell Count 4.71 X10^6/uL (4.5-5.9); Red Cell Distribution Width 15.6 % (11.6-14.8)
[2021-03-06 10:36] LABS: Alanine Aminotransferase 21 IU/L (<50); Albumin 4.6 g/dL (3.5-5.0); Albumin Globulin Ratio 1.4 (1.0-2.8); Alkaline Phosphatase 71 U/L (38-126); Aspartate Aminotransferase 29 IU/L (17-59); BUN Creatinine Ratio 14.9 (6-22); Bilirubin Total 0.8 mg/dL (0.2-1.3); Blood Urea Nitrogen 11 mg/dL (9-20); Calcium 9.4 mg/dL (8.4-10.2); Carbon Dioxide 28 mmol/L (22-32); Chloride 104 mmol/L (98-107); Creatine Kinase 109 U/L (55-170); Estimated Glomerular Filt Rate > 60.0 mL/min (>60); Globulin 3.2 g/dL (1.7-4.1); Glucose 117 mg/dL (80-110); HEMOLYSIS < 15 (0-50); Lipase 56 U/L (23-300); Potassium 4.4 mmol/L (3.4-5.1); Sodium 140 mmol/L (137-145); Total Protein 7.8 g/dL (6.3-8.2)
[2021-03-06 10:46] LABS: Troponin I < 0.012 ng/mL (0.01-0.034)
[2021-03-06 10:51] LABS: CKMB % Relative Index 2.5 % (1.5-5.0); Creatine Kinase MB 2.76 ng/mL (<2.37)
[2021-03-06 10:57] LABS: COVID19 -Nasal RAPID Negative (Negative)
[2021-03-06] MEDS: methylPREDNISolone 125 MG/2 ML VIAL IV (11:03)
[2021-03-06] MEDS: ALBUTEROL/IPRATROPIUM 3 ML AMPUL INH (11:08)
[2021-03-06] MEDS: ALBUTEROL 2.5 MG/3 ML NEB (ADULT) INH (12:09)
== END 2021-03-06 12:31 | disposition home or self-care (01) ==
PROVIDERS: Emergency Provider Emergency Medicine; PCP Internal Medicine
DX: J44.1 Chronic obstructive pulmonary disease with (acute) exacerbation (principal); J18.9 Pneumonia, unspecified organism; Z20.822 Contact with and (suspected) exposure to COVID-19
CPT/HCPCS: 36415; 71045; 80053; 82550; 82553; 83690; 84484; 85025; 87635; 93005; 94640; 96374; 99284; C9803; J2930; J7613

== ENCOUNTER 2021-04-17 12:02 | Emergency (ER) | payer OTHER, SELFPAY ==
[2020-11-06] VITALS: BMI 28.6
[2021-04-17 12:05] VITALS: BP 154/78; PULSE 60; RESP 18; TEMP 36.4; O2SAT 99
--- NOTE | 2021-04-17 12:15 | DI.CT.S_ITS ---
PROCEDURE: CT HEAD/BRAIN WO CON INDICATIONS: fall on Wednesday TECHNIQUE: Noncontrast 4.5 mm thick angled axial sections acquired from the foramen magnum to the vertex, with coronal and sagittal reformats. For radiation dose reduction, the following was used: automated exposure control, adjustment of mA and/or kV according to patient size. COMPARISON: [facility], CT, CT CERVICAL SPINE WO CON, 04/17/2021, 12:21. [facility], CT, CT HEAD/BRAIN WO CON, 02/12/2020, 11:49. FINDINGS: Image quality: Excellent. CSF spaces: Basal cisterns are patent. No extra-axial fluid collections. The ventricles are symmetric in size and shape. Brain: No intracranial bleeds or masses. There is cerebral volume loss for age, with resultant ventricular and sulcal prominence. There are periventricular and deep white matter chronic small vessel ischemic changes. 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 There is intracranial internal carotid artery atherosclerosis. Skull and face: There is a mild right parietal scalp hematoma seen, as on series 2, image 20, yet without an associated fracture. Calvarium and visualized facial bones appear intact, without suspicious lesions. Sinuses: Visualized sinuses and mastoids are clear. IMPRESSION: No acute intracranial hemorrhage is seen. Remote, bilateral lacunar infarcts are again seen. Right parietal scalp hematoma, without an associated fracture. Note is made of age-appropriate brain parenchymal volume loss and chronic small vessel ischemic changes. Dictated by: Arnie Cook M.D. on 04/17/2021 at 11:35 Approved by: Arnie Cook M.D. on 04/17/2021 at 11:36
--- NOTE | 2021-04-17 12:15 | DI.RAD.S_ITS ---
PROCEDURE: XR KNEE RT 3V INDICATIONS: fall on Wednesday TECHNIQUE: 3 views of the knee were acquired. COMPARISON: [facility], CR, XR KNEE RT 1TO2V, 11/05/2020, 18:42. FINDINGS: Bones: No fractures or dislocations. No suspicious bony lesions. Knee arthroplasty is present. Hardware is intact without evidence of hardware fracture or periprosthetic loosening. Soft tissues: Mild joint effusion. No suspicious soft tissue calcifications. IMPRESSION: No visualized acute fracture or dislocation. However, if clinical concern and/or pain persist, short interval imaging followup in 7-10 days is recommended, as occult injury cannot be definitively excluded. Dictated by: Sanam Dickerson M.D. on 04/17/2021 at 12:45 Approved by: Sanam Dickerson M.D. on 04/17/2021 at 12:59
--- NOTE | 2021-04-17 12:15 | DI.CT.S_ITS ---
PROCEDURE: CT CERVICAL SPINE WO CON INDICATIONS: fall on Wednesday TECHNIQUE: Noncontrast 3 mm thick sections acquired from the skull base to the T4 level. Sagittal and coronal reformats were then constructed. For radiation dose reduction, the following was used: automated exposure control, adjustment of mA and/or kV according to patient size. COMPARISON: [facility], CT, CT SOFT TISSUE NECK WO CON, 12/23/2018, 10:07. [facility], CT, CT HEAD/BRAIN WO CON, 04/17/2021, 12:21. [facility], CT, CT CERVICAL SPINE WO CON, 02/12/2020, 11:49. FINDINGS: Image quality: Excellent. Bones: No fractures or dislocations. Visualized superior ribs are intact. Anterior fixation hardware is seen at C4-C5 and at C7-T1. No findings of hardware failure or hardware loosening are seen. Vertebral body fusion is also seen at C5-C6 and C6-C7. Reversal of the normal cervical lordosis is seen, with the apex at the C5 level. There is minimal to mild anterolisthesis seen at C2-C3, C3-C4, C6-C7 and at T1-T2. Bridging anterior osteophytes are seen at the C3-C4 level. Focal degenerative change is seen involving the C1-C2 interface anteriorly. Mild levoconvex cervicothoracic scoliotic curvature is seen. Soft tissues: Prevertebral soft tissues are normal in thickness. No paravertebral hematomas. No apical pneumothoraces. Atherosclerotic calcification is noted. Sternotomy wires are seen. IMPRESSION: Negative for acute fracture. Postoperative changes and prominent degenerative changes are seen, which are similar to 2019. Dictated by: Arnie Cook M.D. on 04/17/2021 at 11:41 Approved by: Arnie Cook M.D. on 04/17/2021 at 11:44
--- NOTE | 2021-04-17 13:15 | ED_ITS ---
HPI - Fall General Chief Complaint: Fall Stated Complaint: Fall- hurt shoulder/neck Time Seen by Provider: 04/17/21 12:23 Source: patient Mode of arrival: Ambulatory History of Present Illness HPI Narrative: Patient is a 76-year-old male who is here valuation for injuries that he sustained when he fell while going into the bathroom landing on his right knee and also right shoulder. This happened approximately 1 week ago. Since that time he has had pain in his left shoulder. Has been taking Tylenol No. 3 at home without any improvement. He has had a cervical fusion in the past. He was concerned that potentially he is injured his neck. Has outpatient x-rays ordered by an outside provider but could not wait because of the discomfort so he came to the emergency department. The symptoms do seem to come and go. He has taken Aleve as well as the Tylenol with codeine. Related Data Home Medications Medication Instructions Recorded Confirmed multivitamin (Multiple Vitamins) 1 tab PO DAILY #0 12/21/16 12/17/20 fluticasone propionate 50 1 spray INTRANASAL DAILY #0 11/03/17 12/17/20 mcg/actuation nasal spray,suspension trazodone 100 mg tablet 400 tab PO BEDTIME 12/10/17 12/17/20 levalbuterol HCl 1.25 mg/3 mL 3 ml INHALATION Q6H PRN 10/17/18 12/17/20 solution for nebulization metoprolol tartrate 100 mg tablet 100 mg PO BID 10/17/18 12/17/20 cetirizine 10 mg capsule (Zyrtec) 10 mg PO DAILY 05/23/19 12/17/20 ferrous sulfate 325 mg (65 mg 325 mg PO DAILY 10/20/19 12/17/20 iron) tablet,delayed release furosemide 40 mg tablet 40 mg PO DAILY 10/20/19 12/17/20 Previous Rx's Medication Instructions Recorded levalbuterol tartrate 45 1 puff INHALATION Q4-6H PRN #15 06/23/18 mcg/actuation aerosol inhaler gram (Xopenex HFA) docusate sodium 100 mg capsule 100 mg PO BID PRN #30 cap 05/28/19 (DOK) acetaminophen 325 mg tablet 650 mg PO Q6H PRN #60 tab 11/07/20 (Athenol) enoxaparin 40 mg/0.4 mL 40 mg SUBCUT DAILY #40 ml 11/07/20 subcutaneous syringe (Lovenox) oxycodone 5 mg tablet 10 mg PO Q4-5H PRN #60 tab 11/07/20 oxycodone 5 mg tablet 5 mg PO Q6H PRN #10 tab 11/23/20 benzonatate 100 mg capsule 100 mg PO TID PRN #14 cap 03/06/21 (Sonaliosielarnie Londongiovanna) doxycycline hyclate 100 mg tablet 100 mg PO BID #20 tab 03/06/21 prednisone 10 mg tablet See Rx Instructions .ROUTE 03/06/21 .COMPLEX #30 tab Allergies Allergy/AdvReac Type Severity Reaction Status Date / Time celecoxib [CELECOXIB] Allergy Mild SWELLING Verified 04/17/21 12:13 latex [LATEX] Allergy Mild RASH Verified 04/17/21 12:13 W/EXTENDED EXPOSURE Sulfa (Sulfonamide Allergy Mild RASH Verified 04/17/21 12:13 Antibiotics) [SULFA (SULFONAMIDE ANTIBIOTICS)] varenicline [VARENICLINE] AdvReac Severe Paranoia Verified 04/17/21 12:13 buprenorphine [BUPRENORPHINE] AdvReac Mild NAUSEA, Verified 04/17/21 12:13 DIZZINESS hyoscyamine [HYOSCYAMINE] AdvReac Mild LEG Verified 04/17/21 12:13 JERKING, ANXIETY, NAUSEA W/I MINUTES Duhgtnz-Iir-Gaz Reductase AdvReac Mild WEAK Verified 04/17/21 12:13 Inhibitor MUSCLES [[id number]-[id number]-ZZF REDUCTASE INHIBITOR] diazepam [From Valium] AdvReac Confusion Verified 04/17/21 12:13 Review of Systems Constitutional Constitutional: Denies fever(s) and Denies headache(s) Eyes Eyes: Denies change in vision ENT Ears, Nose, Mouth, and Throat: Denies headache(s) Cardiovascular Cardiovascular: Reports system reviewed and no additional complaints, except as documented Respiratory Respiratory: Reports system reviewed and no additional complaints, except as documented Gastrointestinal Gastrointestinal: Reports system reviewed and no additional complaints, except as documented Musculoskeletal Comments: Left shoulder pain, left neck pain, abrasion to the right knee. Right ankle pain. Integumentary/Breasts Comments: Abrasion to the right knee Neurologic Neurologic: Denies headache(s) Hematologic/Lymphatic On Anticoagulants: No Allergic/Immunologic Allergic/Immunologic: Reports system reviewed and no additional complaints, exc ept as documented Patient History Medical History Achalasia Anginal pain Asthma Atrial fibrillation Cervical spinal stenosis Chronic obstructive pulmonary disease (10/23/16) COPD (chronic obstructive pulmonary disease) Coronary artery disease History of aortic dissection (~08/2007) Hypertension Ischemic cardiomyopathy Narcotic dependence Neck pain, chronic Ventricular bigeminy Surgical History H/O arthroscopic knee surgery (11/15/17) History of arthroplasty of right knee History of bilateral total hip arthroplasty History of cardiac cath (~03/2014) History of esophageal surgery History of incision and drainage (~2016) History of prior ablation treatment (~03/2017) History of surgery Hx of cholecystectomy Hx of hernia repair Hx of sinus surgery S/P CABG x 3 (~08/2007) S/P cervical spinal fusion S/P lumbar fusion Family History Mother Stroke Social History household members: spouse Smoking Status: Former smoker alcohol intake: current substance use type: does not use Smoking Status: Former smoker alcohol intake frequency: holidays/special occasions only Substance Use Type: does not use Exam Initial Vital Signs Initial Vital Signs: Vital Signs Temperature 97.6 F 04/17/21 12:05 Pulse Rate 60 04/17/21 12:05 Respiratory Rate 18 04/17/21 12:05 Blood Pressure 154/78 H 04/17/21 12:05 Pulse Oximetry 99 04/17/21 12:05 Const General: cooperative and healthy appearing [facility] Head: normal to inspection and normocephalic Eyes General: appearance normal, both eyes and all related structures Resp Effort & Inspection: normal respiratory effort Cardio Rate: regular rate Skin Other: Superficial abrasion to the right anterior knee. No signs of infection. No bleeding. Neuro General: patient alert, patient awake, patient oriented x3 and moves all extremities Motor: muscle tone normal throughout Extrem General: normal to inspection and capillary refill normal Psych Appearance: grossly normal and well kempt Course Orders Ordered: ED Orders 04/17/21 12:15 CT cervical spine wo con Stat CT head/brain wo con Stat XR knee RT 3V Stat Vital Signs Vital signs: Vital Signs - 8 hr 04/17/21 12:05 Temperature 97.6 F Pulse Rate 60 Respiratory Rate 18 Blood Pressure 154/78 H Pulse Oximetry 99 MDM - Fall Imaging Data CT - cervical spine: Radiologist's Impression: [address] [address] [address] Scan Report Signed Patient: Karthikeyan Yo MR#: [id number] : 1945 Acct:[id number] Age/Sex: 76 / M Date of Service: 04/17/21 Loc: ED Accession Number: [id number] ?? Procedure: CT cervical spine wo con Ordering Provider: Karthikeyan Prakash D.O. PROCEDURE:? CT CERVICAL SPINE WO CON ? INDICATIONS:? fall on Wednesday ? TECHNIQUE:? Noncontrast 3 mm thick sections acquired from the skull base to the T4 level.? Sagittal and coronal reformats were then constructed.? For radiation dose reduction, the following was used:? automated exposure control, adjustment of mA and/or kV according to patient size.? ? COMPARISON:? [facility], CT, CT SOFT TISSUE NECK WO CON, 12/23/2018, 10:07.? [facility], CT, CT HEAD/BRAIN WO CON, 04/17/2021, 12:21.? [facility], CT, CT CERVICAL SPINE WO CON, 02/12/2020, 11:49. ? FINDINGS:? Image quality:? Excellent.? ? Bones:? No fractures or dislocations.? Visualized superior ribs are intact.? ? Anterior fixation hardware is seen at C4-C5 and at C7-T1.? No findings of hardware failure or hardware loosening are seen. ? Vertebral body fusion is also seen at C5-C6 and C6-C7. ? Reversal of the normal cervical lordosis is seen, with the apex at the C5 level.? There is minimal to mild anterolisthesis seen at C2-C3, C3-C4, C6-C7 and at T1-T2.? ? Bridging anterior osteophytes are seen at the C3-C4 level. Focal degenerative change is seen involving the C1-C2 interface anteriorly. ? Mild levoconvex cervicothoracic scoliotic curvature is seen. ? Soft tissues:? Prevertebral soft tissues are normal in thickness.? No paravertebral hematomas.? No apical pneumothoraces.? Atherosclerotic calcification is noted.? ? Sternotomy wires are seen.? ? ? IMPRESSION:? Negative for acute fracture. ? Postoperative changes and prominent degenerative changes are seen, which are similar to 2020. ? Dictated by: Arnie Cook M.D. on 04/17/2021 at 11:41 ? ? Approved by: Arnie Cook M.D. on 04/17/2021 at 11:44 CT scan - head: Radiologist's Impression: [address] [address] [address] Scan Report Signed Patient: Karthikeyan Yo MR#: [id number] : 1945 Acct:[id number] Age/Sex: 76 / M Date of Service: 04/17/21 Loc: ED Accession Number: [id number] ?? Procedure: CT head/brain wo con Ordering Provider: Karthikeyan Prakash D.O. PROCEDURE:? CT HEAD/BRAIN WO CON ? INDICATIONS:? fall on Wednesday ? TECHNIQUE:? Noncontrast 4.5 mm thick angled axial sections acquired from the foramen magnum to the vertex, with coronal and sagittal reformats.? For radiation dose reduction, the following was used:? automated exposure control, adjustment of mA and/or kV according to patient size.? ? COMPARISON:? [facility], CT, CT CERVICAL SPINE WO CON, 04/17/2021, 12:21.? [facility], CT, CT HEAD/BRAIN WO CON, 02/12/2020, 11:49. ? FINDINGS:? Image quality:? Excellent.? ? CSF spaces:? Basal cisterns are patent.? No extra-axial fluid collections.? The ventricles are symmetric in size and shape.? ? Brain:? No intracranial bleeds or masses.? There is cerebral volume loss for ag e, with resultant ventricular and sulcal prominence.? There are periventricular and deep white matter chronic small vessel ischemic changes.? 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 There is intracranial internal carotid artery atherosclerosis.? ? Skull and face:? There is a mild right parietal scalp hematoma seen, as on series 2, image 20, yet without an associated fracture.? Calvarium and visualized facial bones appear intact, without suspicious lesions.? ? Sinuses:? Visualized sinuses and mastoids are clear.? ? ? IMPRESSION:? No acute intracranial hemorrhage is seen.? ? Remote, bilateral lacunar infarcts are again seen. ? Right parietal scalp hematoma, without an associated fracture. ? Note is made of age-appropriate brain parenchymal volume loss and chronic small vessel ischemic changes.? ? Dictated by: Arnie Cook M.D. on 04/17/2021 at 11:35 ? ? Approved by: Arnie Cook M.D. on 04/17/2021 at 11:36? Extremity x-ray #1: Radiologist's Impression: [address] [address] XRay Report Signed Patient: Karthikeyan Yo MR#: [id number] : 1945 Acct:[id number] Age/Sex: 76 / M Date of Service: 04/17/21 Loc: ED Accession Number: [id number] ?? Procedure: XR knee RT 3V Ordering Provider: Karthikeyan Prakash D.O. PROCEDURE:? XR KNEE RT 3V ? INDICATIONS:? fall on Wednesday ? TECHNIQUE:? 3 views of the knee were acquired.? ? COMPARISON:? [facility], CR, XR KNEE RT 1TO2V, 11/05/2020, 18:42. ? FINDINGS:? ? Bones:? No fractures or dislocations.? No suspicious bony lesions.? Knee arthroplasty is present.? Hardware is intact without evidence of hardware fracture or periprosthetic loosening. ? Soft tissues:? Mild joint effusion.? No suspicious soft tissue calcifications.? ? ? IMPRESSION:? ? No visualized acute fracture or dislocation. However, if clinical concern and/or pain persist, short interval imaging followup in 7-10 days is recommended, as occult injury cannot be definitively excluded. ? ? Dictated by: Sanam Dickerson M.D. on 04/17/2021 at 12:45 ? ? Approved by: Sanam Dickerson M.D. on 04/17/2021 at 12:59?? MDM Narrative Medical decision making narrative: The abrasion to the right knee needs no intervention here in the ER. CT scans an x-ray showed no signs of any acute pathology. No further workup needed in the emergency department. Patient was given care instructions and return precautions. He expressed understanding and agreement. Discharge Plan Departure Patient Disposition: Home Clinical Impression: Muscle strain, shoulder region, Abrasion of skin Instructions: DI for Muscle Strain Activity Restrictions/Additional Instructions: Continue to take your of leave and Tylenol that you are to your prescribed at home. I also recommend that you continue with the Flexeril/cyclobenzaprine. There were no fractures noted on any of the x-rays nor CT scans. Contact your primary doctor for a follow-up. Return to the emergency department for any new or worsening symptoms Prescriptions: No Action multivitamin [Multiple Vitamins] 1 EACH tablet 1 tab PO DAILY Qty: 0 RF: 0 fluticasone propionate 16 GM spray,suspension 1 spray Intranasal DAILY Qty: 0 RF: 0 furosemide 40 mg Tablet 40 mg PO DAILY RF: 0 ferrous sulfate 325 mg (65 mg iron) tablet,delayed release (DR/EC) 325 mg PO DAILY RF: 0 oxycodone 5 mg Tablet 10 mg PO Q4-5H PRN (Reason: Pain, Severe (7-10)) Qty: 60 RF: 0 enoxaparin [Lovenox] 40 mg/0.4 mL Syringe 40 mg SUBCUT DAILY Qty: 40 RF: 0 acetaminophen [Athenol] 325 mg tablet 650 mg PO Q6H PRN (Reason: pain) Qty: 60 RF: 0 oxycodone 5 mg tablet 5 mg PO Q6H PRN (Reason: pain) Qty: 10 RF: 0 trazodone 100 mg tablet 400 tab PO BEDTIME RF: 0 levalbuterol tartrate [Xopenex HFA] 45 mcg/actuation HFA aerosol inhaler 1 puff INHALATION Q4-6H PRN (Reason: shortness of breath or wheezing) Qty: 15 RF: 0 metoprolol tartrate 100 mg tablet 100 mg PO BID RF: 0 levalbuterol HCl 1.25 mg/3 mL solution for nebulization 3 ml Inhalation Q6H PRN (Reason: Shortness Of Breath) RF: 0 Zyrtec 10 mg Capsule 10 mg PO DAILY RF: 0 docusate sodium [DOK] 100 mg Capsule 100 mg PO BID PRN (Reason: constipation) Qty: 30 RF: 0 benzonatate [Tessalon Perles] 100 mg capsule 100 mg PO TID PRN (Reason: cough) Qty: 14 RF: 0 doxycycline hyclate 100 mg tablet 100 mg PO BID Qty: 20 RF: 0 prednisone 10 mg tablet See Rx Instructions .ROUTE .COMPLEX Qty: 30 RF: 0 Referrals: Romi Tavera MD [Primary Care Provider] -
== END 2021-04-17 13:25 | disposition home or self-care (01) ==
PROVIDERS: Emergency Provider Emergency Medicine; PCP Internal Medicine
DX: S46.912A Strain of unspecified muscle, fascia and tendon at shoulder and upper arm level, left arm, initial encounter (principal); M54.2 Cervicalgia; S80.211A Abrasion, right knee, initial encounter; W19.XXXA Unspecified fall, initial encounter
CPT/HCPCS: 70450; 72125; 73562; 99284

== ENCOUNTER → 2021-09-16 12:35 | Outpatient (CLI) | payer OTHER, SELFPAY ==
[2020-11-06] VITALS: BMI 28.6
--- NOTE | 2021-09-16 12:36 | DI.MRI.S_ITS ---
PROCEDURE: MR LUMBAR SPINE WO CON INDICATIONS: Spinal stenosis, lumbosacral region TECHNIQUE: Noncontrast sagittal T1 spin echo and T2 fast echo, sagittal STIR, axial T1 and T2 fast spin echo through the lumbar spine. In cases with scoliosis, additional coronal T2 fast spin echo may be performed. COMPARISON: [facility], MR, MR LUMBAR SPINE WO CON, 12/27/2017, 12:39. FINDINGS: Postsurgical changes of L4-S1 posterior fixation by means of bilateral rods and pedicle screws. No abnormal signal surrounding the hardware. Straightening of the usual lumbar lordosis. Mild retrolisthesis of L3 with respect to both L2 and L4, measuring approximately 3 millimeters. Anterolisthesis of L1 on L2 measuring 3 millimeters. Vertebral body heights maintained. Normal position and appearance of the conus. Prevertebral and paraspinous soft tissues are within normal limits. At T12-L1, no spinal canal or neural foraminal stenosis. At L1-L2, severe spinal canal stenosis and mild bilateral neural foraminal stenosis due to a combination of diffuse disc bulge, superimposed broad-based posterior disc protrusion, buckling of the ligamentum flavum, and bulky facet hypertrophy. At L2-L3, moderate spinal canal stenosis due to a combination of diffuse disc bulge and a superimposed broad-based posterior disc protrusion with contribution from buckling of the ligamentum flavum and bulky facet hypertrophy. These factors also combine to produce moderate left and mild right neural foraminal stenosis. At L3-L4, severe spinal canal stenosis due to a combination of diffuse disc bulge, superimposed broad-based posterior disc protrusion, bulky facet hypertrophy, and buckling of the ligamentum flavum. These factors combine to produce mild bilateral neural foraminal stenosis. At L4-L5, diffuse disc bulge flattens the ventral thecal sac. No mass effect upon the traversing L5 nerve roots. Moderate right and mild left neural foraminal stenosis. At L5-S1, diffuse disc bulge mildly displaces the descending S1 nerve roots in both subarticular zones. Moderate to severe neural foraminal stenosis due to neural foraminal height loss. Disc material flattens the exiting L5 nerve roots in the neural foramina bilaterally. IMPRESSION: Multilevel multifactorial degenerative changes as described above. Severe spinal canal stenosis at L1-L2 and L3-L4 with varying degrees of neural foraminal stenosis up to moderate-severe. Dictated by: Chuy King M.D. on 09/16/2021 at 14:55 Approved by: Chuy King M.D. on 09/16/2021 at 14:58
== END ==
PROVIDERS: PCP Internal Medicine; Referring Provider Physical Medicine & Rehabilitation Pain Medicine; Visit Provider Physical Medicine & Rehabilitation Pain Medicine
DX: M48.07 Spinal stenosis, lumbosacral region (principal); M48.061 Spinal stenosis, lumbar region without neurogenic claudication; M47.816 Spondylosis without myelopathy or radiculopathy, lumbar region; M47.817 Spondylosis without myelopathy or radiculopathy, lumbosacral region
CPT/HCPCS: 72148

== ENCOUNTER 2021-10-08 21:42 | Observation (INO) | payer OTHER, SELFPAY ==
[2020-11-06] VITALS: BMI 28.6
[2021-10-08 21:47] VITALS: BP 150/73; PULSE 72; RESP 18; TEMP 36.6; O2SAT 96
--- NOTE | 2021-10-08 21:56 | DI.RAD.S_ITS ---
PROCEDURE: XR CHEST 1V INDICATIONS: chest pain TECHNIQUE: One view of the chest was acquired. COMPARISON: [facility], CR, XR CHEST 1V, 03/06/2021, 10:10. FINDINGS: Surgical changes and devices: Cervical fusion hardware. Median sternotomy. Lungs and pleura: Mild patchy bilateral perihilar and basilar opacity.. No pleural effusions or pneumothorax. Mediastinum: Mediastinal contours appear normal. Heart size is normal. Bones and chest wall: No suspicious bony lesions. Overlying soft tissues appear unremarkable. IMPRESSION: Mild atypical pneumonia. Dictated by: Katherine Crawford M.D. on 10/08/2021 at 22:19 Approved by: Katherine Crawford M.D. on 10/08/2021 at 22:19
[2021-10-08 22:02] LABS: Add Manual Diff / Slide Review NO; Basophils Absolute Auto 100 /uL (0-100); Eosinophils Absolute Auto 300 /uL (0-450); Eosinophils Percent Auto 4.8 % (2-4); Hematocrit 38.4 % (41-53); Hemoglobin 13.2 g/dL (13.5-17.5); Lymphocytes Absolute Auto 1100 /uL (1100-4500); Lymphocytes Percent Auto 17.8 % (25-40); Mean Corpuscular HGB Conc 34.4 % (30-36); Mean Corpuscular Hemoglobin 31.9 PG (26-34); Mean Corpuscular Volume 92.7 fL (80-100); Monocytes Absolute Auto 600 /uL (0-900); Monocytes Percent Auto 9.2 % (3-14); Neutrophils Absolute Auto 4100 /uL (1500-7000); Neutrophils Percent Auto 67.2 % (50-75); Platelet Count 260 X10^3/uL (150-400); Red Blood Cell Count 4.14 X10^6/uL (4.5-5.9); Red Cell Distribution Width 13.4 % (11.6-14.8); White Blood Cell Count 6.1 X10^3/uL (4.5-11.0)
[2021-10-08 22:07] LABS: Alanine Aminotransferase 23 IU/L (<50); Albumin 4.2 g/dL (3.5-5.0); Albumin Globulin Ratio 1.4 (1.0-2.8); Alkaline Phosphatase 57 U/L (38-126); Aspartate Aminotransferase 28 IU/L (17-59); BUN Creatinine Ratio 19.7 (6-22); Bilirubin Total 0.7 mg/dL (0.2-1.3); Blood Urea Nitrogen 12 mg/dL (9-20); Calcium 9.1 mg/dL (8.4-10.2); Carbon Dioxide 31 mmol/L (22-32); Chloride 103 mmol/L (98-107); Creatine Kinase 109 U/L (55-170); Estimated Glomerular Filt Rate > 60.0 mL/min (>60); Globulin 2.9 g/dL (1.7-4.1); Glucose 142 mg/dL (80-110); HEMOLYSIS 23 (0-50); Lipase 108 U/L (23-300); Magnesium 2.1 mg/dL (1.6-2.3); Potassium 3.8 mmol/L (3.4-5.1); Sodium 138 mmol/L (137-145); Total Protein 7.1 g/dL (6.3-8.2)
[2021-10-08 22:12] VITALS: PULSE 63; RESP 22; O2SAT 95
--- NOTE | 2021-10-08 22:15 | ED_ITS ---
HPI - Chest Pain General Chief Complaint: Chest Pain Stated Complaint: abd pain Time Seen by Provider: 10/08/21 22:08 Source: patient Mode of arrival: EMS Limitations: no limitations Related Data Home Medications Medication Instructions Recorded Confirmed multivitamin (Multiple Vitamins) 1 tab PO DAILY #0 12/21/16 12/17/20 fluticasone propionate 50 1 spray INTRANASAL DAILY #0 11/03/17 12/17/20 mcg/actuation nasal spray,suspension trazodone 100 mg tablet 400 tab PO BEDTIME 12/10/17 12/17/20 levalbuterol HCl 1.25 mg/3 mL 3 ml INHALATION Q6H PRN 10/17/18 12/17/20 solution for nebulization metoprolol tartrate 100 mg tablet 100 mg PO BID 10/17/18 12/17/20 cetirizine 10 mg capsule (Zyrtec) 10 mg PO DAILY 05/23/19 12/17/20 ferrous sulfate 325 mg (65 mg 325 mg PO DAILY 10/20/19 12/17/20 iron) tablet,delayed release furosemide 40 mg tablet 40 mg PO DAILY 10/20/19 12/17/20 Previous Rx's Medication Instructions Recorded levalbuterol tartrate 45 1 puff INHALATION Q4-6H PRN #15 06/23/18 mcg/actuation aerosol inhaler gram (Xopenex HFA) docusate sodium 100 mg capsule 100 mg PO BID PRN #30 cap 05/28/19 (DOK) acetaminophen 325 mg tablet 650 mg PO Q6H PRN #60 tab 11/07/20 (Athenol) enoxaparin 40 mg/0.4 mL 40 mg (0.4 mL) SUBCUT DAILY #40 ml 11/07/20 subcutaneous syringe (Lovenox) oxycodone 5 mg tablet 10 mg PO Q4-5H PRN #60 tab 11/07/20 oxycodone 5 mg tablet 5 mg PO Q6H PRN #10 tab 11/23/20 benzonatate 100 mg capsule 100 mg PO TID PRN #14 cap 03/06/21 (Tessalon Perlgiovanna) doxycycline hyclate 100 mg tablet 100 mg PO BID #20 tab 03/06/21 prednisone 10 mg tablet See Rx Instructions .ROUTE 03/06/21 .COMPLEX #30 tab Allergies Allergy/AdvReac Type Severity Reaction Status Date / Time celecoxib [CELECOXIB] Allergy Mild SWELLING Verified 04/17/21 12:13 latex [LATEX] Allergy Mild RASH Verified 04/17/21 12:13 W/EXTENDED EXPOSURE Sulfa (Sulfonamide Allergy Mild RASH Verified 04/17/21 12:13 Antibiotics) [SULFA (SULFONAMIDE ANTIBIOTICS)] varenicline [VARENICLINE] AdvReac Severe Paranoia Verified 04/17/21 12:13 buprenorphine [BUPRENORPHINE] AdvReac Mild NAUSEA, Verified 04/17/21 12:13 DIZZINESS hyoscyamine [HYOSCYAMINE] AdvReac Mild LEG Verified 04/17/21 12:13 JERKING, ANXIETY, NAUSEA W/I MINUTES Eogqcoq-FOD-WcA Reductase AdvReac Mild WEAK Verified 04/17/21 12:13 Inhibitor MUSCLES [[id number]-GAT-IKL REDUCTASE INHIBITOR] diazepam [From Valium] AdvReac Confusion Verified 04/17/21 12:13 Patient History Medical History Achalasia Anginal pain Asthma Atrial fibrillation Cervical spinal stenosis Chronic obstructive pulmonary disease (10/23/16) COPD (chronic obstructive pulmonary disease) Coronary artery disease History of aortic dissection (~08/2007) Hypertension Ischemic cardiomyopathy Narcotic dependence Neck pain, chronic Ventricular bigeminy Surgical History H/O arthroscopic knee surgery (11/15/17) History of arthroplasty of right knee History of bilateral total hip arthroplasty History of cardiac cath (~03/2014) History of esophageal surgery History of incision and drainage (~2016) History of prior ablation treatment (~03/2017) History of surgery Hx of cholecystectomy Hx of hernia repair Hx of sinus surgery S/P CABG x 3 (~08/2007) S/P cervical spinal fusion S/P lumbar fusion Family History Mother Stroke Social History household members: spouse Smoking Status: Former smoker alcohol intake: current substance use type: does not use Smoking Status: Former smoker alcohol intake frequency: holidays/special occasions only Substance Use Type: does not use Exam Initial Vital Signs Initial Vital Signs: Vital Signs Temperature 98 F 10/08/21 21:47 Pulse Rate 72 10/08/21 21:47 Respiratory Rate 18 10/08/21 21:47 Blood Pressure 150/73 H 10/08/21 21:47 Pulse Oximetry 96 10/08/21 21:47 Course Orders Ordered: ED Orders 10/08/21 21:40 Complete Blood Count AUTO DIFF Stat Comprehensive Metabolic Panel Stat Lipase Stat Magnesium Stat Troponin & CK Cardiac Panel Stat 10/08/21 21:56 XR chest 1V Stat EKG-12 Lead Stat Vital Signs Vital signs: Vital Signs - 8 hr 10/08/21 21:47 Temperature 98 F Pulse Rate 72 Respiratory Rate 18 Blood Pressure 150/73 H Pulse Oximetry 96 MDM - Chest Pain Lab Data Result diagrams: 10/08/21 21:40 10/08/21 21:40 Labs: Lab Results 10/08/21 10/08/21 Range/Units 21:40 21:40 WBC 6.1 (4.5-11.0) X10^3/uL RBC 4.14 L (4.5-5.9) X10^6/uL Hgb 13.2 L (13.5-17.5) g/dL Hct 38.4 L (41-53) % MCV 92.7 (80-100) fL MCH 31.9 (26-34) PG MCHC 34.4 (30-36) % RDW 13.4 (11.6-14.8) % Plt Count 260 (150-400) X10^3/uL Neut % (Auto) 67.2 (50-75) % Lymph % (Auto) 17.8 L (25-40) % Dickinson % (Auto) 9.2 (3-14) % Eos % (Auto) 4.8 H (2-4) % Baso % (Auto) 1.0 (0-2) % Neut # (Auto) 4100 (5289-5496) /uL Lymph # (Auto) 1100 (4035-8592) /uL Dickinson # (Auto) 600 (0-900) /uL Eos # (Auto) 300 (0-450) /uL Baso # (Auto) 100 (0-100) /uL Sodium 138 (137-145) mmol/L Potassium 3.8 (3.4-5.1) mmol/L Chloride 103 (98-107) mmol/L Carbon Dioxide 31 (22-32) mmol/L BUN 12 (9-20) mg/dL Creatinine 0.61 L (0.66-1.25) mg/dL Estimated GFR > 60.0 (>60) mL/min BUN/Creatinine Ratio 19.7 (6-22) Glucose 142 H (80-110) mg/dL Calcium 9.1 (8.4-10.2) mg/dL Magnesium 2.1 (1.6-2.3) mg/dL Total Bilirubin 0.7 (0.2-1.3) mg/dL AST 28 (17-59) IU/L ALT 23 (<50) IU/L Alkaline Phosphatase 57 (38-126) U/L Total Creatine Kinase 109 (55-170) U/L Total Protein 7.1 (6.3-8.2) g/dL Albumin 4.2 (3.5-5.0) g/dL Globulin 2.9 (1.7-4.1) g/dL Albumin/Globulin Ratio 1.4 (1.0-2.8) Lipase 108 (23-300) U/L Discharge Plan Departure Prescriptions: No Action multivitamin [Multiple Vitamins] 1 EACH tablet 1 tab PO DAILY Qty: 0 0RF fluticasone propionate 16 GM spray,suspension 1 spray Intranasal DAILY Qty: 0 0RF furosemide 40 mg Tablet 40 mg PO DAILY 0RF ferrous sulfate 325 mg (65 mg iron) tablet,delayed release (DR/EC) 325 mg PO DAILY 0RF Label Comments: take 1 tablet by mouth once daily oxycodone 5 mg Tablet 10 mg PO Q4-5H PRN (Reason: Pain, Severe (7-10)) Qty: 60 0RF enoxaparin [Lovenox] 40 mg/0.4 mL Syringe 40 mg SUBCUT DAILY Qty: 40 0RF acetaminophen [Athenol] 325 mg tablet 650 mg PO Q6H PRN (Reason: pain) Qty: 60 0RF oxycodone 5 mg tablet 5 mg PO Q6H PRN (Reason: pain) Qty: 10 0RF trazodone 100 mg tablet 400 tab PO BEDTIME 0RF Label Comments: patient states weaning off. levalbuterol tartrate [Xopenex HFA] 45 mcg/actuation HFA aerosol inhaler 1 puff INHALATION Q4-6H PRN (Reason: shortness of breath or wheezing) Qty: 15 0RF metoprolol tartrate 100 mg tablet 100 mg PO BID 0RF Label Comments: take 1 tablet by mouth twice a day levalbuterol HCl 1.25 mg/3 mL solution for nebulization 3 ml Inhalation Q6H PRN (Reason: Shortness Of Breath) 0RF Label Comments: INHALE 1 VIAL PER NEBULIZER EVERY 6 HOURS NEEDED Zyrtec 10 mg Capsule 10 mg PO DAILY 0RF docusate sodium [DOK] 100 mg Capsule 100 mg PO BID PRN (Reason: constipation) Qty: 30 0RF benzonatate [Tessalon Perles] 100 mg capsule 100 mg PO TID PRN (Reason: cough) Qty: 14 0RF doxycycline hyclate 100 mg tablet 100 mg PO BID Qty: 20 0RF prednisone 10 mg tablet See Rx Instructions .ROUTE .COMPLEX Qty: 30 0RF Rx Instructions: Day 1,2,3: 40mg PO Daily Day 4,5,6: 30mg PO Daily Day 7,8,9: 20mg PO Daily Day 10,11,12: 10mg PO Daily #30 Referrals: Romi Tavera MD [Primary Care Provider] -
--- NOTE | 2021-10-08 22:16 | DI.CT.S_ITS ---
PROCEDURE: CT ANGIO HEAD AND NECK INDICATIONS: Dizziness TECHNIQUE: Pre-contrast 4.5 mm thick sections acquired from the foramen magnum to the vertex. After the administration of intravenous contrast, 1 mm thick sections acquired from the aortic arch through the Webb of [place]. Post-contrast 4.5 mm thick sections then re-acquired from the foramen magnum to the vertex. 3-dimensional jhivatn-mgdoksmow-qpxkrlpsrs (MIP) and/or volume rendering reformats were acquired of the central intracranial vasculature and neck separately. COMPARISON: [facility], CT, CT HEAD/BRAIN WO CON, 04/17/2021, 12:21. FINDINGS: Image quality: Excellent. BRAIN: CSF spaces: Ventricles are normal in size and shape. Basal cisterns are patent. No extra-axial fluid collections. Brain: No midline shift. No intracranial bleeds or masses. Cuellar-white matter interface appears intact. Skull and face: Calvarium and facial bones appear intact, without suspicious lesions. Orbits appear normal. Sinuses: Sinuses and mastoids are clear. HEAD CT ANGIOGRAPHY: Anterior circulation: Mild calcific stenosis of the bilateral cavernous internal carotid arteries. The flow within the paired anterior cerebral arteries is normal and symmetric. The flow within the middle cerebral arteries is normal and symmetric. The anterior communicating artery is seen. No aneurysms are seen. Posterior circulation: Visualized portions of the vertebral arteries demonstrate normal caliber, and join to form a normal appearing basilar artery. Flow within the posterior cerebral arteries is normal and symmetric. No aneurysms are seen. NECK CT ANGIOGRAPHY: Carotid system: The great vessels demonstrate a conventional anatomy as they arise from the aortic arch. The origins of the common carotid arteries appear patent. The common carotid arteries demonstrate normal caliber and courses. Mild calcific multifocal stenosis of the internal carotid arteries bilaterally. Posterior circulation: The origins of the vertebral arteries both appear widely patent. The more superior extracranial portions of both vertebral arteries also demonstrate normal courses and calibers. They join to form a normal appearing basilar artery. Soft tissues: Visualized neck soft tissues demonstrate no suspicious abnormalities. Bones: No suspicious bony lesions. Visualized cervical spine appears normally aligned. IMPRESSION: 1. No acute process involving the arterial tree of the head and neck. Any quantitative measurements of stenosis were performed using NASCET criteria. Dictated by: Katherine Crawford M.D. on 10/08/2021 at 23:09 Approved by: Katherine Crawford M.D. on 10/08/2021 at 23:12
[2021-10-08 22:18] LABS: Troponin I < 0.012 ng/mL (0.01-0.034)
--- NOTE | 2021-10-08 22:20 | ED_ITS ---
HPI - Dizziness General Chief Complaint: Chest Pain Stated Complaint: abd pain Time Seen by Provider: 10/08/21 22:08 Source: patient Mode of arrival: EMS History of Present Illness HPI Narrative: Patient brought in by ambulance from home for sudden onset of dizziness just prior to arrival. He was at home on the computer. [place] like the room is spinning. No numbness tingling weakness. No slurred speech or facial droop. was at home. Never had this problem before. Denies any chest pain or palpitations. Has nausea with this as well. Has chronic back pain. He is asking for his nighttime pain medication as well. No history of stroke. Denies any chest pain or abdominal pain or back pain. Related Data Home Medications Medication Instructions Recorded Confirmed multivitamin (Multiple Vitamins) 1 tab PO DAILY #0 12/21/16 12/17/20 fluticasone propionate 50 1 spray INTRANASAL DAILY #0 11/03/17 12/17/20 mcg/actuation nasal spray,suspension trazodone 100 mg tablet 400 tab PO BEDTIME 12/10/17 12/17/20 levalbuterol HCl 1.25 mg/3 mL 3 ml INHALATION Q6H PRN 10/17/18 12/17/20 solution for nebulization metoprolol tartrate 100 mg tablet 100 mg PO BID 10/17/18 12/17/20 cetirizine 10 mg capsule (Zyrtec) 10 mg PO DAILY 05/23/19 12/17/20 ferrous sulfate 325 mg (65 mg 325 mg PO DAILY 10/20/19 12/17/20 iron) tablet,delayed release furosemide 40 mg tablet 40 mg PO DAILY 10/20/19 12/17/20 Previous Rx's Medication Instructions Recorded levalbuterol tartrate 45 1 puff INHALATION Q4-6H PRN #15 06/23/18 mcg/actuation aerosol inhaler gram (Xopenex HFA) docusate sodium 100 mg capsule 100 mg PO BID PRN #30 cap 05/28/19 (DOK) acetaminophen 325 mg tablet 650 mg PO Q6H PRN #60 tab 11/07/20 (Athenol) enoxaparin 40 mg/0.4 mL 40 mg (0.4 mL) SUBCUT DAILY #40 ml 11/07/20 subcutaneous syringe (Lovenox) oxycodone 5 mg tablet 10 mg PO Q4-5H PRN #60 tab 11/07/20 oxycodone 5 mg tablet 5 mg PO Q6H PRN #10 tab 11/23/20 benzonatate 100 mg capsule 100 mg PO TID PRN #14 cap 03/06/21 (Connor Choi) doxycycline hyclate 100 mg tablet 100 mg PO BID #20 tab 03/06/21 prednisone 10 mg tablet See Rx Instructions .ROUTE 03/06/21 .COMPLEX #30 tab Allergies Allergy/AdvReac Type Severity Reaction Status Date / Time celecoxib [CELECOXIB] Allergy Mild SWELLING Verified 04/17/21 12:13 latex [LATEX] Allergy Mild RASH Verified 04/17/21 12:13 W/EXTENDED EXPOSURE Sulfa (Sulfonamide Allergy Mild RASH Verified 04/17/21 12:13 Antibiotics) [SULFA (SULFONAMIDE ANTIBIOTICS)] varenicline [VARENICLINE] AdvReac Severe Paranoia Verified 04/17/21 12:13 buprenorphine [BUPRENORPHINE] AdvReac Mild NAUSEA, Verified 04/17/21 12:13 DIZZINESS hyoscyamine [HYOSCYAMINE] AdvReac Mild LEG Verified 04/17/21 12:13 JERKING, ANXIETY, NAUSEA W/I MINUTES Rylrucd-DSV-PcY Reductase AdvReac Mild WEAK Verified 04/17/21 12:13 Inhibitor MUSCLES [[id number] REDUCTASE INHIBITOR] diazepam [From Valium] AdvReac Confusion Verified 04/17/21 12:13 Review of Systems Review of Systems Narrative: GENERAL: Denies chills, fatigue, malaise, fever, sweats. HEENT: Denies sinus pain, ear pain, sore throat RESPIRATORY: Denies dyspnea, cough CARDIOVASCULAR: Denies chest pain, palpitations GASTROINTESTINAL: Positive for nausea, negative for vomiting, abdominal pain : Denies dysuria, frequency, hematuria MUSCULOSKELETAL: denies muscle or bony pain SKIN: Denies rash, skin lesions NEUROLOGIC: Denies weakness, numbness, positive for dizziness ROS Unobtainable: All systems reviewed & are unremarkable except as noted in HPI and below Patient History Medical History Achalasia Anginal pain Asthma Atrial fibrillation Cervical spinal stenosis Chronic obstructive pulmonary disease (10/23/16) COPD (chronic obstructive pulmonary disease) Coronary artery disease History of aortic dissection (~08/2007) Hypertension Ischemic cardiomyopathy Narcotic dependence Neck pain, chronic Ventricular bigeminy Surgical History H/O arthroscopic knee surgery (11/15/17) History of arthroplasty of right knee History of bilateral total hip arthroplasty History of cardiac cath (~03/2014) History of esophageal surgery History of incision and drainage (~2016) History of prior ablation treatment (~03/2017) History of surgery Hx of cholecystectomy Hx of hernia repair Hx of sinus surgery S/P CABG x 3 (~08/2007) S/P cervical spinal fusion S/P lumbar fusion Family History Mother Stroke Social History household members: spouse Smoking Status: Former smoker alcohol intake: current substance use type: does not use Smoking Status: Former smoker alcohol intake frequency: holidays/special occasions only Substance Use Type: does not use Exam Narrative Exam Narrative: GENERAL: in no distress, not toxic not dyspneic HEAD: Normocephalic. EYES: Pupils equal round No scleral icterus. No nystagmus ENT: Mucous membranes moist. NECK: Trachea midline. CARDIOVASCULAR: Regular rate and rhythm without murmurs RESPIRATORY: Clear to auscultation. Breath sounds equal bilaterally. No wheezes, rales, or rhonchi. GASTROINTESTINAL: Abdomen soft, non-tender EXTREMITIES: No gross deformities. BACK: No flank tenderness. NEURO: AOx4. Clear speech no facial droop light touch intact bilaterally the face hands and legs. 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 Negative pronator drift. Finger-nose intact bilaterally. Steady individual straight leg raises. Dizziness worse with rotating his head and looking horizontally. SKIN: Warm and dry PSYCH: Not anxious, is cooperative Initial Vital Signs Initial Vital Signs: Vital Signs Temperature 98 F 10/08/21 21:47 Pulse Rate 72 10/08/21 21:47 Respiratory Rate 18 10/08/21 21:47 Blood Pressure 150/73 H 10/08/21 21:47 Pulse Oximetry 96 10/08/21 21:47 Scores NIH Stroke Scale Level of Conciousness: Alert, keenly responsive Ask month/age: Answers both questions correctly. Open/close eyes, close hand: Performs both tasks correctly Best gaze horizontal: Normal Visual matos: No visual loss Facial palsy: Normal symetrical movement Left arm drift: No drift for full 10 sec Right arm drift: No drift for full 10 sec Left leg drift: No drift for full 5 sec Right leg drift: No drift for full 5 sec Limb ataxia: Absent Sensory on face/arms/legs: Normal, no sensory loss Best language: No aphasia, normal Dysarthria: Normal Extinction or inattention: No abnormality Total NIH Stroke scale score: 0 Course Course Course Narrative: Reviewed with neurologist recommends for admit for MRI and echocardiogram Decision to Admit Date: 10/09/21 Decision to Admit time: 00:21 Orders Ordered: ED Orders 10/08/21 21:40 Complete Blood Count AUTO DIFF Stat Comprehensive Metabolic Panel Stat Lipase Stat Magnesium Stat Troponin & CK Cardiac Panel Stat 10/08/21 21:56 XR chest 1V Stat EKG-12 Lead Stat 10/08/21 22:16 CT angio head and neck Stat Acetaminophen (Acetaminophen 325 Mg Tablet) 650 mg PO Q6HR LAUREN Dextrose (Dextrose 50 % In Water 25 Gm/50 Ml Syringe) 25 gm IV PRN PRN PRN Reason: Hypoglycemia Docusate Sodium (Docusate 100 Mg Capsule) 100 mg PO BID LAUREN Enoxaparin Sodium (Enoxaparin 40 Mg/0.4 Ml Syringe) 40 mg SUBCUT DAILY [facility] Insulin Human Lispro (Insulin Lispro 100 Unit/Ml 3ml Vial) 0 unit SUBCUT ACHS LAUREN; Protocol Methocarbamol (Methocarbamol 500 Mg Tablet) 500 mg PO Q8HR [facility] Metoprolol Tartrate (Metoprolol Ir 50 Mg Tablet) 100 mg PO BID [facility] Morphine Sulfate (Morphine 2 Mg/Ml Inj) 2 mg IV Q4H PRN PRN Reason: Breakthrough pain only (8-10) Naloxone HCl (Naloxone 0.4 Mg/Ml Vial) 0.2 mg IV Q2MIN PRN PRN Reason: Opiate Reversal Ondansetron HCl (Ondansetron 4 Mg/2 Ml Inj) 4 mg IV Q8HR PRN PRN Reason: Nausea And Vomiting Oxycodone HCl (Oxycodone Ir 5 Mg Tablet) 5 mg PO Q6H PRN PRN Reason: pain Trazodone HCl (Trazodone 100 Mg Tablet) 100 mg PO BEDTIME LAUREN Discontinued Medications Aspirin (Aspirin 81 Mg Chew Tab) 324 mg PO NOW ONE Stop: 10/09/21 00:30 Last Admin: 10/09/21 00:43 Dose: 324 mg Documented by: ALISSON Sodium Chloride (Normal Saline 0.9%) 1,000 mls @ 1,000 mls/hr IV BOLUS ONE Stop: 10/08/21 23:14 Last Infusion: 10/08/21 23:48 Dose: 0 mls/hr Documented by: Admin: 10/08/21 22:28 Dose: 1,000 mls/hr Documented by: TANMAY Meclizine HCl (Meclizine Hcl 12.5 Mg Tablet) 50 mg PO NOW ONE Stop: 10/08/21 22:16 Last Admin: 10/08/21 22:24 Dose: 50 mg Documented by: TANMAY Metoclopramide HCl (Metoclopramide 10 Mg/2 Ml Inj) 10 mg IV NOW ONE Stop: 10/08/21 22:24 Last Admin: 10/08/21 22:27 Dose: 10 mg Documented by: TANMAY Morphine Sulfate (Morphine 4 Mg/Ml Inj) 4 mg IV NOW ONE Stop: 10/08/21 22:16 Last Admin: 10/08/21 22:38 Dose: 4 mg Documented by: TANMAY Ondansetron HCl (Ondansetron 4 Mg/2 Ml Inj) 4 mg IV NOW ONE Stop: 10/08/21 22:16 Last Admin: 10/08/21 22:34 Dose: Not Given Documented by: TANMAY Oxycodone/Acetaminophen (Oxycodone/Acetaminophen 5/325 Tablet) 2 tab PO NOW ONE Stop: 10/08/21 23:40 Last Admin: 10/08/21 23:50 Dose: 2 tab Documented by: TANMAY Promethazine HCl (Promethazine 6.25 Mg/5 Ml Syrup) 25 mg PO NOW ONE Stop: 10/09/21 00:26 Last Admin: 10/09/21 00:43 Dose: Not Given Documented by: ALISSON Promethazine HCl (Promethazine 25 Mg Tablet) 25 mg PO NOW ONE Stop: 10/09/21 00:30 Last Admin: 10/09/21 00:41 Dose: 25 mg Documented by: ALISSON Reevaluation(s) Reevaluation #1: Reviewed results with patient. Patient states his dizziness is better and [place] better after Reglan and Antivert. Still has ongoing back pain which is not new. Time: 23:30 Reevaluation #2: Patient unsteady in the hallway with assistance by 2 staff members. Time: 23:48 Consultations Consultation #1: Spoke with tele stroke, dr soriano, he will remote video in with patient now. Time: 00:06 Consultation #2: Dr. Soriano called back after examining patient remotely with robotics. Recommends patient to be admitted for MRI and echocardiogram. Patient is not tPA candidate. Patient complaints could still likely be peripheral vertigo. Time: 00:22 Vital Signs Vital signs: Vital Signs - 8 hr 10/08/21 21:47 10/08/21 22:12 10/08/21 22:40 Temperature 98 F Pulse Rate 72 63 76 Respiratory Rate 18 22 19 Blood Pressure 150/73 H Pulse Oximetry 96 95 96 10/08/21 23:00 10/08/21 23:12 10/08/21 23:30 Temperature Pulse Rate 70 74 71 Respiratory Rate 17 19 21 Blood Pressure 141/72 H 201/84 H Pulse Oximetry 94 95 95 10/09/21 00:00 10/09/21 00:04 10/09/21 00:30 Temperature Pulse Rate 73 72 93 H Respiratory Rate 30 H 19 64 H Blood Pressure 201/91 H Pulse Oximetry 95 93 MDM - Dizziness Differential Diagnosis Differential diagnosis: Likely benign paroxysmal positional vertigo, vertebral basilar insufficiency, cerebrovascular accident, acute vestibular neuronitis and transient cerebral ischemia Lab Data Result diagrams: 10/08/21 21:40 10/08/21 21:40 Labs: Lab Results 10/08/21 10/08/21 Range/Units 21:40 21:40 WBC 6.1 (4.5-11.0) X10^3/uL RBC 4.14 L (4.5-5.9) X10^6/uL Hgb 13.2 L (13.5-17.5) g/dL Hct 38.4 L (41-53) % MCV 92.7 (80-100) fL MCH 31.9 (26-34) PG MCHC 34.4 (30-36) % RDW 13.4 (11.6-14.8) % Plt Count 260 (150-400) X10^3/uL Neut % (Auto) 67.2 (50-75) % Lymph % (Auto) 17.8 L (25-40) % [place] % (Auto) 9.2 (3-14) % Eos % (Auto) 4.8 H (2-4) % Baso % (Auto) 1.0 (0-2) % Neut # (Auto) 4100 (3776-2311) /uL Lymph # (Auto) 1100 (4816-2858) /uL [place] # (Auto) 600 (0-900) /uL Eos # (Auto) 300 (0-450) /uL Baso # (Auto) 100 (0-100) /uL Sodium 138 (137-145) mmol/L Potassium 3.8 (3.4-5.1) mmol/L Chloride 103 (98-107) mmol/L Carbon Dioxide 31 (22-32) mmol/L BUN 12 (9-20) mg/dL Creatinine 0.61 L (0.66-1.25) mg/dL Estimated GFR > 60.0 (>60) mL/min BUN/Creatinine Ratio 19.7 (6-22) Glucose 142 H (80-110) mg/dL Calcium 9.1 (8.4-10.2) mg/dL Magnesium 2.1 (1.6-2.3) mg/dL Total Bilirubin 0.7 (0.2-1.3) mg/dL AST 28 (17-59) IU/L ALT 23 (<50) IU/L Alkaline Phosphatase 57 (38-126) U/L Total Creatine Kinase 109 (55-170) U/L CK-MB (CK-2) 2.21 (<2.37) ng/mL CK-MB (CK-2) Rel Index 2.0 (1.5-5.0) % Troponin I < 0.012 (0.01-0.034) ng/mL Total Protein 7.1 (6.3-8.2) g/dL Albumin 4.2 (3.5-5.0) g/dL Globulin 2.9 (1.7-4.1) g/dL Albumin/Globulin Ratio 1.4 (1.0-2.8) Lipase 108 (23-300) U/L Imaging Data Chest x-ray: Radiologist's Impression: [address] [address] XRay Report Signed Patient: Karthikeyan Yo MR#: [id number] : 1945 Acct:[id number] Age/Sex: 76 / M Date of Service: 10/08/21 Loc: ED Accession Number: [id number] ?? Procedure: XR chest 1V Ordering Provider: Beny Gutierrez MD PROCEDURE:? XR CHEST 1V ? INDICATIONS:? chest pain ? TECHNIQUE:? One view of the chest was acquired.? ? COMPARISON:? [facility], CR, XR CHEST 1V, 03/06/2021, 10:10. ? FINDINGS:? ? Surgical changes and devices:? Cervical fusion hardware.? Median sternotomy. ? Lungs and pleura:? Mild patchy bilateral perihilar and basilar opacity..? No pleural effusions or pneumothorax.? ? Mediastinum:? Mediastinal contours appear normal.? Heart size is normal.? ? Bones and chest wall:? No suspicious bony lesions.? Overlying soft tissues appear unremarkable.? ? IMPRESSION:? Mild atypical pneumonia. ? ? Dictated by: Katherine Crawford M.D. on 10/08/2021 at 22:19 ? ? Approved by: Katherine Crawford M.D. on 10/08/2021 at 22:19 ? CTA - brain/neck: Radiologist's Impression: [place] [address] CT Scan Report Signed Patient: Karthikeyan Yo MR#: [id number] : 1945 Acct:[id number] Age/Sex: 76 / M Date of Service: 10/08/21 Loc: ED Accession Number: [id number] ?? Procedure: CT angio head and neck Ordering Provider: Beny Gutierrez MD PROCEDURE:? CT ANGIO HEAD AND NECK ? INDICATIONS:? Dizziness ? TECHNIQUE:? Pre-contrast 4.5 mm thick sections acquired from the foramen magnum to the vertex.? After the administration of intravenous contrast, 1 mm thick sections acquired from the aortic arch through the [place].? Post-contrast 4.5 mm thick sections then re- acquired from the foramen magnum to the vertex.? 3-dimensional voidxkj-qjnyhjups-fuozclvqjr (MIP) and/or volume rendering reformats were acquired of the central intracranial vasculature and neck separately. ? COMPARISON:? [facility], CT, CT HEAD/BRAIN WO CON, 04/17/2021, 12:21. ? FINDINGS:? Image quality:? Excellent.? ? BRAIN:? CSF spaces:? Ventricles are normal in size and shape.? Basal cisterns are patent.? No extra-axial fluid collections.? ? Brain:? No midline shift.? No intracranial bleeds or masses.? Cuellar-white matter interface appears intact.? ? Skull and face:? Calvarium and facial bones appear intact, without suspicious lesions.? Orbits appear normal.? ? Sinuses:? Sinuses and mastoids are clear.? ? HEAD CT ANGIOGRAPHY:? Anterior circulation:? Mild calcific stenosis of the bilateral cavernous internal carotid arteries.? The flow within the paired anterior cerebral arteries is normal and symmetric. ?The flow within the middle cerebral arteries is normal and symmetric.? The anterior communicating artery is seen.? No aneurysms are seen.? ? Posterior circulation:? Visualized portions of the vertebral arteries d emonstrate normal caliber, and join to form a normal appearing basilar artery.? Flow within the posterior cerebral arteries is normal and symmetric.? No aneurysms are seen.? ? NECK CT ANGIOGRAPHY:? Carotid system:? The great vessels demonstrate a conventional anatomy as they arise from the aortic arch.? The origins of the common carotid arteries appear patent.? The common carotid arteries demonstrate normal caliber and courses.? Mild calcific multifocal stenosis of the internal carotid arteries bilaterally. ? Posterior circulation:? The origins of the vertebral arteries both appear widely patent.? The more superior extracranial portions of both vertebral arteries also demonstrate normal courses and calibers.? They join to form a normal appearing basilar artery.? ? Soft tissues:? Visualized neck soft tissues demonstrate no suspicious abnormalities.? ? Bones:? No suspicious bony lesions.? Visualized cervical spine appears normally aligned.? IMPRESSION:? 1. No acute process involving the arterial tree of the head and neck. ? Any quantitative measurements of stenosis were performed using NASCET criteria.? ? ? Dictated by: Katherine Crawford M.D. on 10/08/2021 at 23:09 ? ? Approved by: Katherine Crawford M.D. on 10/08/2021 at 23:12 ? ECG Data Interpretation: Sinus rhythm no ST elevation or depression. Rate 72. MDM Narrative Medical decision making narrative: Patient to be admitted. Appropriate as patient unable to ambulate at baseline. Still symptomatic. Reviewed with tele stroke. Reviewed with hospitalist. Patient agrees for admit. No code stroke initiated as patient's symptoms not likely stroke. No tPA as I did review with tele stroke provider Dr. Soriano, this still likely to be peripheral vertigo. Discharge Plan Departure Patient Disposition: Admitted as Observation Clinical Impression: Ataxia Admit Date/Time: 10/09/21 00:44 Admit Provider: Gianfranco Dixon
[2021-10-08 22:22] LABS: Creatine Kinase MB 2.21 ng/mL (<2.37)
[2021-10-08] MEDS: MECLIZINE HCL 12.5 MG TABLET 50 MG PO (22:24)
[2021-10-08] MEDS: METOCLOPRAMIDE 10 MG/2 ML INJ IV (22:27)
[2021-10-08] MEDS: SODIUM CHLORIDE 0.9% 1,000 ML 1000 ML IV (22:28)
[2021-10-08] MEDS: MORPHINE 4 MG/ML INJ IV (22:38)
[2021-10-08 22:40] VITALS: PULSE 76; RESP 19; O2SAT 96
[2021-10-08 23:00] VITALS: PULSE 70; RESP 17; O2SAT 94
[2021-10-08 23:12] VITALS: BP 141/72; PULSE 74; RESP 19; O2SAT 95
[2021-10-08 23:30] VITALS: BP 201/84; PULSE 71; RESP 21; O2SAT 95
[2021-10-08] MEDS: OXYCODONE/ACETAMINOPHEN 5/325 TABLET 2 TAB PO (23:50)
[2021-10-09] VITALS (12 sets, daily range): BP systolic 152–201; BP diastolic 78–92; PULSE 63–93; RESP 16–64; TEMP 36.3–36.9; O2SAT 93–97; BMI 30.2
[2021-10-09] MEDS: PROMETHAZINE 25 MG TABLET PO (00:41)
[2021-10-09] MEDS: ASPIRIN 81 MG CHEW TAB 324 MG PO (00:43)
[2021-10-09 01:14] LABS: COVID19 -Nasal RAPID Negative (Negative)
--- NOTE | 2021-10-09 01:14 | DI.MRI.S_ITS ---
PROCEDURE: MR HEAD/BRAIN WO CON INDICATIONS: cva ataxia TECHNIQUE: Non-contrast axial T1 spin echo, axial T2 fast spin echo, sagittal and axial FLAIR, coronal T2 fast spin echo, axial gradient echo, axial diffusion and ADC through the brain. COMPARISON: [facility], CT, CT ANGIO HEAD AND NECK, 10/08/2021, 22:23. FINDINGS: Image quality: Excellent. CSF spaces: Ventricles appear symmetric in size and shape. Basal cisterns are patent. No extra-axial fluid collections. No filling defect is seen within the visualized portions of the internal auditory coronal is on T2-weighted images. Brain: No acute intracranial hemorrhage or mass effect. There is cerebral volume loss for age. There are mild periventricular and deep white matter chronic small vessel ischemic changes. Brainstem appears normal. Diffusion-weighted images show no acute ischemic insults. Small chronic lacunar infarct versus likely a prominent [place] perivascular space in the inferior right basal ganglia. Normal intravascular flow voids are present. Skull and face: Calvarial bone marrow is normal in signal. Orbits are normal. Sinuses: There is partial opacification of the left maxillary sinus. Mild mucosal thickening is seen in the ethmoid air cells bilaterally. The remaining visualized paranasal sinuses are clear. IMPRESSION: 1. No acute intracranial hemorrhage or recent infarct. 2. Mild age related cerebral volume loss and mild chronic microvascular ischemic changes. Dictated by: Estiven Magana M.D. on 10/09/2021 at 12:01 Approved by: Estiven Magana M.D. on 10/09/2021 at 12:08
--- NOTE | 2021-10-09 01:14 | PM.HP.1 ---
History of Present Illness History of Present Illness Date Patient Seen: 10/08/21 Time Patient Seen: 23:30 Chief complaint: abd pain Narrative: Sudden onset about 730 pm while sitting at computer of vertigo. No prior hx of stroke NIHSS zero CT head wnl however still persistently ataxic and tending to list to the right can't pass walking test. Teleneuro consulted in ED and recommended MRI and echo cardiogram prior to discharge for possible CVA. He is actively dizzy still while laying in bed. preexisting back and leg pain takes oxycodone and trazodone, DM2 takes a pill not sure what, HTN takes metoprolol. Patient History Medical History Achalasia Anginal pain Asthma Atrial fibrillation Cervical spinal stenosis Chronic obstructive pulmonary disease (10/23/16) COPD (chronic obstructive pulmonary disease) Coronary artery disease History of aortic dissection (~08/2007) Hypertension Ischemic cardiomyopathy Narcotic dependence Neck pain, chronic Ventricular bigeminy Surgical History H/O arthroscopic knee surgery (11/15/17) History of arthroplasty of right knee History of bilateral total hip arthroplasty History of cardiac cath (~03/2014) History of esophageal surgery History of incision and drainage (~2016) History of prior ablation treatment (~03/2017) History of surgery Hx of cholecystectomy Hx of hernia repair Hx of sinus surgery S/P CABG x 3 (~08/2007) S/P cervical spinal fusion S/P lumbar fusion Family & Social History Family History Mother Stroke Social History: household members spouse Safety & Behavioral: Feels Safe in Current Yes Environment Tobacco & Substance use: Tobacco type cigarettes Smoking Status Former smoker alcohol intake current alcohol intake frequency holiday/special occasion Substance Use Type does not use Meds Home Medications and Allergies Home Medications Medication Instructions Recorded Confirmed Type multivitamin (Multiple Vitamins) 1 tab PO DAILY #0 12/21/16 10/09/21 History fluticasone propionate 50 1 spray INTRANASAL DAILY PRN #0 11/03/17 10/09/21 History mcg/actuation nasal spray,suspension trazodone 100 mg tablet 400 tab PO BEDTIME 12/10/17 10/09/21 History levalbuterol tartrate 45 1 puff INHALATION Q4-6H PRN #15 06/23/18 10/09/21 Rx mcg/actuation aerosol inhaler gram (Xopenex HFA) levalbuterol HCl 1.25 mg/3 mL 3 ml INHALATION Q6H PRN 10/17/18 10/09/21 History solution for nebulization metoprolol tartrate 100 mg tablet 100 mg PO BID 10/17/18 10/09/21 History cetirizine 10 mg capsule (Zyrtec) 10 mg PO DAILY 05/23/19 10/09/21 History ferrous sulfate 325 mg (65 mg 325 mg PO DAILY 10/20/19 10/09/21 History iron) tablet,delayed release acetaminophen 325 mg tablet 650 mg PO Q6H PRN #60 tab 11/07/20 10/09/21 Rx (Athenol) oxycodone 5 mg tablet 10 mg PO Q4-5H PRN #60 tab 11/07/20 10/09/21 Rx benzonatate 100 mg capsule 100 mg PO TID PRN #14 cap 03/06/21 10/09/21 Rx (Tessalon Perles) prednisone 10 mg tablet See Rx Instructions .ROUTE 03/06/21 10/09/21 Rx .COMPLEX #30 tab Allergies Allergy/AdvReac Type Severity Reaction Status Date / Time celecoxib [CELECOXIB] Allergy Mild SWELLING Verified 04/17/21 12:13 latex [LATEX] Allergy Mild RASH Verified 04/17/21 12:13 W/EXTENDED EXPOSURE Sulfa (Sulfonamide Allergy Mild RASH Verified 04/17/21 12:13 Antibiotics) [SULFA (SULFONAMIDE ANTIBIOTICS)] varenicline [VARENICLINE] AdvReac Severe Paranoia Verified 04/17/21 12:13 buprenorphine [BUPRENORPHINE] AdvReac Mild NAUSEA, Verified 04/17/21 12:13 DIZZINESS hyoscyamine [HYOSCYAMINE] AdvReac Mild LEG Verified 04/17/21 12:13 JERKING, ANXIETY, NAUSEA W/I MINUTES Euvrlhk-[id number]-GxT Reductase AdvReac Mild WEAK Verified 04/17/21 12:13 Inhibitor MUSCLES [[id number] REDUCTASE INHIBITOR] diazepam [From Valium] AdvReac Confusion Verified 04/17/21 12:13 Review of Systems Review of Systems Narrative: all systems reviewed and negative except as otherwise documented in HPI Exam Vital Signs (past 8 hours): - 10/08/21 21:47 10/08/21 22:12 10/08/21 22:40 Temperature 98 F Pulse Rate 72 63 76 Respiratory Rate 18 22 19 Blood Pressure 150/73 H Pulse Oximetry 96 95 96 10/08/21 23:00 Temperature Pulse Rate 70 Respiratory Rate 17 Blood Pressure Pulse Oximetry 94 Oxygen Delivery Method Room Air Narrative Exam Narrative: laying in bed with eyes closed HENME Head: normal to inspection, normocephalic and atraumatic Neck Neck: normal visual inspection, full ROM, trachea midline and supple Resp Other: clear to auscultation bilaterally Cardio Other: regular rate and rhythm s1/s2 GI Other: soft nontender normal bowel sounds Skin General: no rashes or lesions noted Neuro General: patient alert, patient awake, patient oriented x3 and other (does tend to fall to the right even just trying to hold trunk erect. ) Extrem General: normal to inspection, full ROM and no pedal edema Psych Appearance: grossly normal Mental Status: mental status grossly normal Speech and Movement: speech and movement normal Mood: congruent mood Affect: normal affect Objective Labs Result Diagrams: 10/08/21 21:40 10/08/21 21:40 Labs: Laboratory Results - last 24 hr 10/08/21 10/08/21 10/09/21 21:40 21:40 01:00 WBC 6.1 RBC 4.14 L Hgb 13.2 L Hct 38.4 L MCV 92.7 MCH 31.9 MCHC 34.4 RDW 13.4 Plt Count 260 Neut % (Auto) 67.2 Lymph % (Auto) 17.8 L Huntington % (Auto) 9.2 Eos % (Auto) 4.8 H Baso % (Auto) 1.0 Neut # (Auto) 4100 Lymph # (Auto) 1100 Huntington # (Auto) 600 Eos # (Auto) 300 Baso # (Auto) 100 Sodium 138 Potassium 3.8 Chloride 103 Carbon Dioxide 31 BUN 12 Creatinine 0.61 L Estimated GFR > 60.0 BUN/Creatinine Ratio 19.7 Glucose 142 H Calcium 9.1 Magnesium 2.1 Total Bilirubin 0.7 AST 28 ALT 23 Alkaline Phosphatase 57 Total Creatine Kinase 109 CK-MB (CK-2) 2.21 CK-MB (CK-2) Rel Index 2.0 Troponin I < 0.012 Total Protein 7.1 Albumin 4.2 Globulin 2.9 Albumin/Globulin Ratio 1.4 Lipase 108 SARS-CoV-2 (PCR) Negative Assessment & Plan Assessment & Plan narrative: #vertigo/ataxia Possible CVA, head CT wnl, pending MRI and echocardiogram #essential hypertension continue home meds once identified prn hydralazine #NIDDM continue home meds once identified fingersticks and SSI achs #back and leg pain, preexisting continue home pain meds as needed Code: full diet: NPO DVT ppx: lovenox MDM Cristel Guerra - [phone] Time Spent With Patient Critical Care time: I spent a total of [] minutes of critical care time on this patient's care today; this time is exclusive of procedural time.
[2021-10-09] MEDS: MORPHINE 2 MG/ML INJ IV ×3 (02:21→23:20)
--- NOTE | 2021-10-09 02:38 | PC.NURSE ---
Patient admitted to room 212 Alert & oriented but forgetful does not remember all his medications. Report taking oral pill for Diabetes but does not remember the name of the pill. Oriented to his room, showed him how to use his bed, TV controls & call light. Instructed to call for assistance if he needed to get OOB to the [facility]. Denies any recent fall for the past 3 months. Call light with in reach & bed alarm activated. Will cont. POC & monitor.
[2021-10-09] MEDS: TRAZODONE 100 MG TABLET PO (03:51)
[2021-10-09] MEDS: ACETAMINOPHEN 325 MG TABLET 650 MG PO ×4 (06:08→23:20)
[2021-10-09] MEDS: methocarbamoL 500 MG TABLET PO ×3 (06:08→20:13)
--- NOTE | 2021-10-09 06:48 | PC.NURSE ---
Spouse Cristel called & updated with patient's status. She reported not to give patient high dose of Morphine because it will make pt. very confused & also with Dilaudid & Oxycontin. Updated his home medication list, pt. still taking his Lasix & Glipizide daily & Tylenol #3 1 tab. every 6 hrs. PRN. Will report to day RN.
[2021-10-09] MEDS: SODIUM CHLORIDE 0.9% FLUSH 10 ML IV ×3 (07:01→21:31)
[2021-10-09] MEDS: ONDANSETRON 4 MG/2 ML INJ IV (07:01)
[2021-10-09] MEDS: OXYCODONE IR 5 MG TABLET PO ×3 (07:48→20:13)
[2021-10-09] MEDS: DOCUSATE 100 MG CAPSULE PO ×2 (08:57→20:12)
[2021-10-09] MEDS: ENOXAPARIN 40 MG/0.4 ML SYRINGE SUBCUT (08:57)
[2021-10-09] MEDS: METOPROLOL IR 50 MG TABLET 100 MG PO ×2 (08:58→20:13)
[2021-10-09] MEDS: ALBUTEROL 2.5 MG/3 ML NEB (ADULT) INH ×4 (09:28→19:42)
--- NOTE | 2021-10-09 10:36 | PC.NURSE ---
Addendum entered by Sharmila Melendez R.N. 10/09/21 18:04: Pt ECHO completed this evening. B/P elevated at 1400 = 174/89; then 182/94 given Ativan and mechliazine for anxiety and dizziness Much improved @ this time. Call light w/in reach, bed alarm on for pt safety. Pt asked to call for assistance Continue w/plan of care. Original Note: Pt alert/oriented, Denies discomfort. Lungs clear, SpO2 96% RA AC CBG = 96, no coverage required. To MRI @ 1025 Continue to assess.
--- NOTE | 2021-10-09 14:20 | PT.IPTN ---
Physical Therapy Treatment Note M3 PT-IP Subjective Start: 10/09/21 16:26 Freq: NEEDED Status: Active Protocol: Document 10/09/21 14:20 AB (Rec: 10/09/21 16:31 AB [id number]) Subjective Physical Therapy Visit Type Type Administrative Note Notes checked on pt and c/o dizziness. PLOF and home set up obtained. Checked BP prior to mobility and BP: 185/105. informed nurse and stated that pt is in v-tach. Informed pt regarding hold PT eval and PT will check back but pt stated that he will do it tomorrow and not today.
--- NOTE | 2021-10-09 14:47 | CM.DANOTE ---
Patient is a 76 yo male who was admitted on 10/09/21 for Abd Pain. Pt has [facility] for insurance and his PCP is Romi Tavera. EMR was reviewed. Per MD, pt admitted with vertigo type symptoms and MRI and Echo ordered to r/o CVA. PT/OT ordered and pending. Per RN, pt may be somewhat forgetful. SW met bedside with pt and explained role and pt confirms that he still lives at home with his in [place] and is independent at baseline and drives. DPOA is his spouse. Pt was last admitted in October 2020 a year ago with ankle surgery and pt refused SNF and was agreeable with HH. Pt states though that HH services did not take place. Pt states it's been a year and he finally feels his ankle is back to working condition although he has chronic back pain and may be having another back surgery with Dr. Barbosa with [facility] in the near future. 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 Pt states his spouse is physically doing well but continues to have some anxiety and now is worried for pt. Pt is hopeful to get some answers to his medical needs and RN in now to place tele on pt to monitor his pace. Plan: SW to follow closely for MRI/Echo results and PT/OT eval to determine d/c to home vs SNF/Inpt Rehab. CELESTINA Stark Discharge Planning/Care Management Advanced directive, confirm from FAMILY Start: 10/09/21 01:32 Freq: Q24H Status: Active Protocol: Document 10/09/21 01:32 MP (Rec: 10/09/21 02:36 MP [id number]) Advance Directive, confirm on record Time 02:36 Person contacted PT. Copy received No CM Discharge Assessment Start: 10/09/21 14:46 Freq: Status: Active Protocol: Document 10/09/21 14:46 BF (Rec: 10/09/21 14:47 BF [id number]) Discharge Planning Assessment Assigned Air Press Operator CELESTINA Treviño DPOA/Assigned Designee Name spouse Cristel Contact Information [phone] Advance Directives? No Advance Directives on File No History Provided By Patient,Medical Record Has Patient been admitted in last 30 No days? Prior Living Arrangements House Household Members spouse Type of transporation used prior to Drives own vehicle admit Independent with ADL's Yes Is patient alert and oriented? Yes: maybe forgetfulness Needs Assistance With Managing Medications Caregiver for Another No Comment Pt states that he has DME in the home from the last time he had knee surgery, and then last year ankle surgery Patient/Family Preference OP PT Therapy Barriers to Discharge No Comment Some issues at home with ' s anxiety Discharge Plan Home Transportation Arrangement Spouse will transport. Additional Comment No referrals initiated at this time, but will see how he does with therapy team. Whiteboard Updated in Patient Room with Yes name and ext. # of Air Press Operator Review Status In Process Please Provide Date Initial DC 10/09/21 Assessment Was Performed Next Review Type Continued Stay Review
[2021-10-09] MEDS: LORazepam 0.5 MG TABLET PO ×3 (14:59→21:30)
[2021-10-09] MEDS: MECLIZINE HCL 12.5 MG TABLET 25 MG PO ×2 (15:00→20:14)
--- NOTE | 2021-10-09 15:24 | OT.IPNOTE ---
Attempted to see pt for OT eval and able to get prior level of care, however, pt's BP 149/108 and 174/113, therefore HOLD today. Nursing also present in the room. Pt a bit impulsive and insists that he is fine to get up to use the bathroom. Nurse in agreement for pt not to get up yet and wait for his BP to decrease. Nurse nodding in agreement to have bed alarm on the pt. Left pt in nurse's care.
--- NOTE | 2021-10-09 16:59 | DI.ECHO.S_ITS ---
: : Phone: [phone] : [phone]---------+ Echocardiogram Report + + :Name: RUI BOATENG Study Date: 10/09/2021 Height: 73 in : :[facility] ReadingLocation: Weight: 220 lb : : Gender: Male BSA: 2.2 m2 : :: 1945 Age: 76 yrs BP: 162/78 mmHg: :Reason For Study: CVA : :Ordering Physician: DAYA, : :LYNN Mckenzie Performed By: Cassandra Zaidi : :Referring: LYNN STAPLETON : + + Interpretation Summary There is mild concentric left ventricular hypertrophy. The ejection fraction is estimated to be 55-60%. Diastolic parameters suggest probable normal left ventricular diastolic function and normal filling pressures. The right ventricular systolic function is normal. Injection of contrast documented no interatrial shunt. There is mild mitral regurgitation. Pulmonary artery pressures cannot be estimated. Procedure: A two-dimensional transthoracic echocardiogram with color flow and Doppler was performed. The study quality was technically adequate. There is no prior echocardiogram noted for this patient. A saline contrast injection was performed to assess for cardiac shunting. The patient was in sinus rhythm with heart rates between 60-80 bpm during the exam. Left Ventricle: The left ventricle is normal in size. There is mild concentric left ventricular hypertrophy. The ejection fraction is estimated to be 55-60%. Diastolic parameters suggest probable normal left ventricular diastolic function and normal filling pressures. Right Ventricle: The right ventricle is normal size. The right ventricular systolic function is normal. Atria: The left atrial size is normal. Right atrial size is normal. There is no Doppler evidence for an interatrial shunt. Injection of contrast documented no interatrial shunt. Mitral Valve: The mitral valve leaflets appear mildly thickened, but open well. There is mild mitral annular calcification. There is mild mitral regurgitation. Aortic Valve: The aortic valve is trileaflet. The aortic valve is slightly calcified. The aortic valve opens well. There is no aortic valve stenosis. No aortic regurgitation is present. Tricuspid Valve: There is trace tricuspid regurgitation. Pulmonary artery pressures cannot be estimated because of the lack of a measurable TR jet velocity but the IVC suggests a CVP of around 3 mmHg. Pulmonic Valve: The pulmonic valve is not well seen, but is grossly normal. There is mild pulmonic regurgitation. Great Vessels: The aortic root is normal size. The dimensions of the ascending aorta are normal. The IVC is of normal diameter and collapses greater than 50% with a sniff. This suggests a low right atrial pressure of 3 mm Hg. Pericardium/ Pleura There is no pericardial effusion. There is no pleural effusion. MMode/2D Measurements & Calculations LVIDd: 5.0 cm LVOT diam: 1.9 cm LVIDs: 3.2 cm Ao root diam: 3.6 cm FS: 36.6 % asc Aorta Diam: 3.5 cm IVSd: 1.2 cm Ao Arch Diam (Prox Trans): 2.4 cm LVPWd: 1.3 cm LV perez. diameter/BSA (cm/m^2): 2.2 LV sys. diameter/BSA (cm/m^2): 1.4 LA A2 area: 22.2 cm2 RA long axis: 5.2 cm LA A4 area: 22.8 cm2 RA area: 18.3 cm2 LA length (vol): 5.9 cm RA vol: 54.7 ml LA vol: 72.7 ml RA : 24.4 ml/m2 LA vol index: 32.5 ml/m2 IVC diam: 1.9 cm RVD1 (basal): 2.9 cm TAPSE: 1.5 cm Doppler Measurements & Calculations Ao V2 max: 151.2 cm/sec LVOT Max Marcos: 69.6 cm/sec Ao V2 mean: 104.9 cm/sec LV V1 max P.9 mmHg Ao max P.2 mmHg LV V1 VTI: 17.0 cm Ao mean P.0 mmHg EDUARD(I,D): 1.5 cm2 Ao V2 VTI: 34.3 cm EDUARD(V,D): 1.4 cm2 sev ratio: 0.50 EDUARD indexed to BSA (cm^2/m^2): 0.65 MV E max marcos: 76.9 cm/sec PA V2 max: 98.0 cm/sec MV A max marcos: 75.0 cm/sec PA V2 mean: 63.3 cm/sec MV E/A: 1.0 PA mean P.9 mmHg Med Peak E' Marcos: 8.7 cm/sec PA pr(Accel): 31.0 mmHg E/E' med: 8.8 Lat Peak E' Marcos: 9.7 cm/sec E/E' lat: 8.0 E/e' average: 8.4 MV dec time: 0.19 sec SV(LVOT): 50.2 ml Reading Physician:01:02 PM
[2021-10-09] MEDS: TRAZODONE 100 MG TABLET 300 MG PO (20:14)
--- NOTE | 2021-10-09 23:41 | RT ---
called for prn tx due to patient having anxiety , this is not an indication for extra treatment . anxiety must be handled appropriately . breath sounds are clear and equal , pt is on room air and stable from a respiratory standpoint .
[2021-10-10 00:34] VITALS: BP 153/89; PULSE 67; RESP 17; TEMP 36.4; O2SAT 95
[2021-10-10 00:44] VITALS: RESP 24; O2SAT 95
[2021-10-10] MEDS: LORazepam 0.5 MG TABLET PO (03:30)
[2021-10-10] MEDS: OXYCODONE IR 5 MG TABLET PO (03:30)
[2021-10-10 04:06] VITALS: BP 150/91; PULSE 65; RESP 17; TEMP 36.4; O2SAT 95
[2021-10-10] MEDS: ALBUTEROL 2.5 MG/3 ML NEB (ADULT) INH ×2 (04:24→07:34)
--- NOTE | 2021-10-10 05:03 | PC.NURSE ---
a/o x 4. voices needs. SBA mobility w/ FWW, steady gait. tolerating RA, sats 95%. numerous c/o pain thru the noc, prn med requests essentially every hour. PRN oxycodone 5mg, ativan 0.5mg, MS IVP given several times w/ fair effect. reports increased anxiety, ativan given w/ fair effect, asked patient if he would like to discuss the anxiety sx he is showing. I miss my dog. reports that he lost a dear friend in his pet who approx 3 weeks ago. provided listening support and comfort. patient's anxiety seems a little bit relieved. breathing tx (neb tx) given by this nurse when RT was busy. patient w/ fine cx, will obtain CXR if continues to c/o SOB. echo results are not up yet.
[2021-10-10] MEDS: methocarbamoL 500 MG TABLET PO (07:16)
[2021-10-10] MEDS: MORPHINE 2 MG/ML INJ IV (07:28)
[2021-10-10 07:34] VITALS: PULSE 78; RESP 22; O2SAT 96
--- NOTE | 2021-10-10 07:39 | PC.NURSE ---
Day shift: Tele taken off by Pt this AM. Pt states Dr Hickman said I wouldn't need it today. Dr Cedillo infomred and tele d/c'd at this time. Pt denies any chest pain at this time as well.
[2021-10-10 07:45] VITALS: BP 153/88; PULSE 62; RESP 20; TEMP 36.8; O2SAT 94
[2021-10-10 08:13] VITALS: BP 153/83; PULSE 62
[2021-10-10] MEDS: LOSARTAN 50 MG TABLET PO (08:13)
[2021-10-10] MEDS: predniSONE 20 MG TABLET 40 MG PO (08:13)
[2021-10-10] MEDS: METOPROLOL IR 50 MG TABLET 100 MG PO (08:13)
[2021-10-10] MEDS: DOCUSATE 100 MG CAPSULE PO (08:13)
[2021-10-10] MEDS: ENOXAPARIN 40 MG/0.4 ML SYRINGE SUBCUT (08:14)
[2021-10-10] MEDS: AZITHROMYCIN 250 MG TABLET 500 MG PO (08:37)
[2021-10-10] MEDS: SODIUM CHLORIDE 0.9% FLUSH 10 ML IV (08:38)
[2021-10-10] MEDS: CEFDINIR 300 MG CAPSULE PO (08:38)
--- NOTE | 2021-10-10 08:53 | OT.IPNOTE ---
Pt refusing to get up for OT eval due to his back pain. Pt has already been given pain meds earlier, to check on pt later.
--- NOTE | 2021-10-10 10:17 | PC.NURSE ---
Addendum entered by Fidel Villeda R.N. 10/10/21 10:18: Pt given D/C info and left unit w/ all things and verbalized understanding of all d/c info and use of new meds. Pt taken via wheelchair to personal vehicle and his spouse. Pt ststed he has made follow up visit w/ pcp. Original Note: Pt taken off unit at 10 AM
--- NOTE | 2021-10-10 13:15 | PT-IP ANOTE ---
pt d/c prior to PT eval.
--- NOTE | 2021-10-10 18:05 | P.DS_ITS ---
History of Present Illness History of Present Illness Chief complaint: abd pain Narrative: Sudden onset about 730 pm while sitting at computer of vertigo. No prior hx of stroke NIHSS zero CT head wnl however still persistently ataxic and tending to list to the right can't pass walking test.? Teleneuro consulted in ED and recommended MRI and echo cardiogram prior to discharge for possible CVA.? He is actively dizzy still while laying in bed.? preexisting back and leg pain takes oxycodone and trazodone, DM2 takes a pill not sure what, HTN takes metoprolol. Discharge Providers Provider Date of admission: 10/09/21 00:44 Discharge Date: 10/10/21 Primary care physician: Romi Tavera MD Consults: 10/09/21 01:11 Consult to Occupational Therapy Evaluate & Treat Comment: Physician Instructions: Evaluate and treat Consult to Physical Therapy Evaluate & Treat Comment: Physician Instructions: Evaluate and Treat Discharge provider: Bhupendra Cedillo MD Summary Hospital Course Discharge Diagnosis: 1. Acute vertigo 2. Pneumonia, unknown chronicity 3. COPD 4. Type 2 diabetes 5. Chronic atrial fibrillation 6. History of ischemic cardiomyopathy 7. Atrial fibrillation 8. History of mesenteric ischemia 9. Hypertension 10. Chronic back pain 11. Achalasia Chest one view:Surgical changes and devices:? Cervical fusion hardware.? Median sternotomy. ? Lungs and pleura:? Mild patchy bilateral perihilar and basilar opacity..? No pleural effusions or pneumothorax.? ? Mediastinum:? Mediastinal contours appear normal.? Heart size is normal.? ? Bones and chest wall:? No suspicious bony lesions.? Overlying soft tissues appear unremarkable.? ? IMPRESSION:? Mild atypical pneumonia. Head/neck CTA:?No acute process involving the arterial tree of the head and neck. Brain MR:1. No acute intracranial hemorrhage or recent infarct. 2. Mild age related cerebral volume loss and mild chronic microvascular ischemic changes. Hospital Course: Patient was admitted with symptoms of severe vertigo with concern for posterior stroke. His brain MRI, head and neck CTA were negative. Likely cause of jessica tigo is positional verses acute vestibular neuritis. He has had substantial improvement with meclizine. Additionally patient has chronic wheezing and cough. Chest x-ray showed mild patchy bilateral perihilar and basilar opacity. He was started on prednisone and oral antibiotics for pneumonia. He should probably have follow-up x-ray imaging in a month to see if these abnormalities clear up. Status at Discharge Overall status at discharge: patient is progressing back to baseline Time Spent with Patient Time spent: Greater than 30 minutes Exam Vital Signs (past 8 hours): Oxygen Delivery Method Room Air Oxygen Flow Rate 0 Narrative Exam Narrative: General: Alert, NAD Lungs: Bilateral wheeze and some crackles in the lower lobes Heart: Irregular rhythm Extremities: No edema Objective Labs Result Diagrams: 10/08/21 21:40 10/08/21 21:40 [facility] Medical History Achalasia Anginal pain Asthma Atrial fibrillation Cervical spinal stenosis Chronic obstructive pulmonary disease (10/23/16) COPD (chronic obstructive pulmonary disease) Coronary artery disease History of aortic dissection (~08/2007) Hypertension Ischemic cardiomyopathy Narcotic dependence Neck pain, chronic Ventricular bigeminy Surgical History H/O arthroscopic knee surgery (11/15/17) History of arthroplasty of right knee History of bilateral total hip arthroplasty History of cardiac cath (~03/2014) History of esophageal surgery History of incision and drainage (~2016) History of prior ablation treatment (~03/2017) History of surgery Hx of cholecystectomy Hx of hernia repair Hx of sinus surgery S/P CABG x 3 (~08/2007) S/P cervical spinal fusion S/P lumbar fusion Family History Mother Stroke Social History household members: spouse Smoking Status: Former smoker alcohol intake: current substance use type: does not use Discharge Plan Discharge Plan Patient Disposition: Home Provider Discharge Comment: You were evaluated for vertigo. There is no evidence of stroke or bleed. Take meclizine as needed. Additionally your chest x-ray shows findings of pneumonia. Take antibiotics and prednisone as prescribed. Discharge orders & Medications Prescriptions: New cefdinir 300 mg capsule 300 mg PO BID Qty: 20 0RF azithromycin [Zithromax] 250 mg tablet 250 mg PO DAILY 4 Days Qty: 4 0RF Rx Instructions: Start day 2 of therapy on 10/11/21 prednisone 20 mg tablet 40 mg PO DAILY 10 Days Qty: 20 0RF meclizine 25 mg tablet 25 mg PO QID PRN (Reason: vertigo) Qty: 30 0RF Continued multivitamin [Multiple Vitamins] 1 EACH tablet 1 tab PO DAILY Qty: 0 0RF fluticasone propionate 16 GM spray,suspension 1 spray Intranasal DAILY PRN (Reason: Allergy Symptoms) Qty: 0 0RF ferrous sulfate 325 mg (65 mg iron) tablet,delayed release (DR/EC) 325 mg PO DAILY 0RF Label Comments: take 1 tablet by mouth once daily oxycodone 5 mg Tablet 10 mg PO Q4-5H PRN (Reason: Pain, Severe (7-10)) Qty: 60 0RF acetaminophen [Athenol] 325 mg tablet 650 mg PO Q6H PRN (Reason: pain) Qty: 60 0RF furosemide [Lasix] 40 mg tablet 40 mg PO DAILY 0RF glipizide [Glucotrol XL] 2.5 mg tablet extended release 24 hr 2.5 mg PO DAILY 0RF Label Comments: Spouse Cristel called & reported patient not taking it regularly. acetaminophen-codeine 300-30 mg tablet 1 tab PO Q6HR PRN (Reason: Back Pain) 0RF trazodone 100 mg tablet 400 tab PO BEDTIME 0RF Label Comments: patient states weaning off. levalbuterol tartrate [Xopenex HFA] 45 mcg/actuation HFA aerosol inhaler 1 puff INHALATION Q4-6H PRN (Reason: shortness of breath or wheezing) Qty: 15 0RF metoprolol tartrate 100 mg tablet 100 mg PO BID 0RF Label Comments: take 1 tablet by mouth twice a day levalbuterol HCl 1.25 mg/3 mL solution for nebulization 3 ml Inhalation Q6H PRN (Reason: Shortness Of Breath) 0RF Label Comments: INHALE 1 VIAL PER NEBULIZER EVERY 6 HOURS NEEDED Zyrtec 10 mg Capsule 10 mg PO DAILY 0RF benzonatate [Tessalon Perles] 100 mg capsule 100 mg PO TID PRN (Reason: cough) Qty: 14 0RF Follow up/Referrals: Romi Tavera MD [Primary Care Provider] - Diet/Activity/Treatments Diet: Regular Visit Report/Discharge Packet Instructions: Vertigo, DI for Heart Failure, How to Prevent Falls Discharge Data Primary Care Provider: Romi Tavera Attending Provider: Gianfranco Dixon VTE Deep Vein Thrombosis/Pulmonary Embolism Present on Admission: No
== END 2021-10-10 10:00 | disposition home or self-care (01) ==
LOC: ED 10-09 00:23 → AC 10-09 00:45
PROVIDERS: Admitting Provider Family Medicine; Emergency Provider Emergency Medicine; PCP Internal Medicine; Referring Provider Emergency Medicine; Visit Provider Family Medicine
DX: R07.9 Chest pain, unspecified (principal); R42 Dizziness and giddiness; R29.700 NIHSS score 0; E11.9 Type 2 diabetes mellitus without complications; I10 Essential (primary) hypertension; J18.9 Pneumonia, unspecified organism; J44.9 Chronic obstructive pulmonary disease, unspecified; I48.20 Chronic atrial fibrillation, unspecified; Z20.822 Contact with and (suspected) exposure to COVID-19
CPT/HCPCS: 36415; 70496; 70498; 70551; 71045; 80053; 82550; 82553; 82962; 83690; 83735; 84484; 85025; 87635; 93005; 93306; 94640; 94760; 96361; 96372; 96374; 96375; 96376; 99284; C9803; G0378; J1650; J1815; J2270; J2405; J2765; J7613; Q9967

== ENCOUNTER 2021-11-20 10:44 | Emergency (ER) | payer OTHER, SELFPAY ==
[2021-10-09 01:09] VITALS: BMI 30.2
[2021-11-20] VITALS (15 sets, daily range): BP systolic 150–212; BP diastolic 74–93; PULSE 69–96; RESP 18–32; TEMP 36.6; O2SAT 91–95; BMI 27.7
--- NOTE | 2021-11-20 10:57 | DI.RAD.S_ITS ---
PROCEDURE: XR CHEST 2V INDICATIONS: shortness of breath TECHNIQUE: 2 views of the chest were acquired. COMPARISON: [facility], , XR CHEST 1V, 10/08/2021, 21:56. FINDINGS: Surgical changes and devices: Redemonstrated sternotomy wires, evidence of CABG, and cervical spine hardware. Lungs and pleura: Coarsened interstitial markings. No consolidation, pleural effusions or pneumothorax. Mediastinum: Mediastinal contours are normal. Heart size is normal. Bones and chest wall: No suspicious bony abnormalities. Soft tissues appear unremarkable. IMPRESSION: No acute cardiopulmonary abnormality. Dictated by: Dima Horn M.D. on 11/20/2021 at 11:55 Approved by: Dima Horn M.D. on 11/20/2021 at 11:56
[2021-11-20 11:18] LABS: COVID19 -Nasal RAPID Negative (Negative)
[2021-11-20 11:43] LABS: Add Manual Diff / Slide Review NO; Basophils Absolute Auto 100 /uL (0-100); Basophils Percent Auto 1.1 % (0-2); Eosinophils Absolute Auto 400 /uL (0-450); Eosinophils Percent Auto 7.6 % (2-4); Hematocrit 43.2 % (41-53); Hemoglobin 14.4 g/dL (13.5-17.5); Lymphocytes Absolute Auto 1100 /uL (1100-4500); Lymphocytes Percent Auto 19.9 % (25-40); Mean Corpuscular HGB Conc 33.4 % (30-36); Mean Corpuscular Hemoglobin 31.4 PG (26-34); Mean Corpuscular Volume 93.9 fL (80-100); Monocytes Absolute Auto 400 /uL (0-900); Monocytes Percent Auto 7.9 % (3-14); Neutrophils Absolute Auto 3400 /uL (1500-7000); Neutrophils Percent Auto 63.5 % (50-75); Platelet Count 207 X10^3/uL (150-400); Red Cell Distribution Width 13.5 % (11.6-14.8); White Blood Cell Count 5.3 X10^3/uL (4.5-11.0)
--- NOTE | 2021-11-20 11:43 | PC.NURSE ---
Pt requests to stay in wheelchair post xray for back support, states he is unable to comfortably sit up on stretcher. All monitors hooked up and call light within reach with education for use.
[2021-11-20 11:53] LABS: Lactate (Lactic Acid) 3.7 mmol/L (0.7-2.1)
[2021-11-20 11:54] LABS: Alanine Aminotransferase 26 IU/L (<50); Albumin 4.6 g/dL (3.5-5.0); Albumin Globulin Ratio 1.5 (1.0-2.8); Alkaline Phosphatase 61 U/L (38-126); Aspartate Aminotransferase 31 IU/L (17-59); BUN Creatinine Ratio 16.7 (6-22); Bilirubin Total 0.5 mg/dL (0.2-1.3); Blood Urea Nitrogen 13 mg/dL (9-20); Calcium 8.5 mg/dL (8.4-10.2); Carbon Dioxide 25 mmol/L (22-32); Chloride 103 mmol/L (98-107); Estimated Glomerular Filt Rate > 60 mL/min (>60); Globulin 3.1 g/dL (1.7-4.1); Glucose 201 mg/dL (80-110); HEMOLYSIS < 15 (0-50); Potassium 4.1 mmol/L (3.4-5.1); Sodium 140 mmol/L (137-145); Total Protein 7.7 g/dL (6.3-8.2)
[2021-11-20] MEDS: ALBUTEROL/IPRATROPIUM 3 ML AMPUL INH (12:42)
[2021-11-20] MEDS: methylPREDNISolone 125 MG/2 ML VIAL IV (12:53)
[2021-11-20] MEDS: SODIUM CHLORIDE 0.9% 500 ML 1000 ML IV (12:53)
[2021-11-20] MEDS: HYDROMORPHONE 0.5 MG INJ IV (12:54)
[2021-11-20] MEDS: AMOXICILLIN/CLAV 875/125 MG 1 TAB PO (12:54)
[2021-11-20 13:06] LABS: Magnesium 1.8 mg/dL (1.6-2.3)
--- NOTE | 2021-11-20 13:09 | ED_ITS ---
HPI - SOB/Dyspnea <Darshana Lopez, [facility] - Last Filed: 11/20/21 15:22> General Chief Complaint: Shortness of Breath/Dyspnea Stated Complaint: STATES PNEUMONIA-PHYSICAIN REFERRED Time Seen by Provider: 11/20/21 12:02 Source: patient and family Mode of arrival: Wheelchair Limitations: no limitations History of Present Illness HPI Narrative: 76-year-old male former smoker with history of COPD and hypertension, AFib, CABG, pneumonia 1 month ago, who is not on anticoagulants who presents at the request of his primary care provider for 3 days of increased upper respiratory wheezing, shortness of breath, cough and congestion due to his seasonal allergies. He endorses lot of sinus congestion, and yearly issues with a productive cough this time of year. He has had no fever or chills but states that he is more tired than usual, has a frontal headache due to coughing ongoing low back pain which is also worse with coughing. He is not dizzy nor weak or lightheaded.? He denies any exertional component, medication change or weight gain.? He denies nausea, vomiting or diarrhea. Patient is complaining was low back pain, asking for some breakthrough opioid medicine to help with this. P atient states at home and has been taking all of his medications at as prescribed including Flonase, levalbuterol, Zyrtec, Benadryl, singular for his symptoms. Patient states that he has received Augmentin in the past which has helped and steroids. His road inspector is Dr. Holt Related Data Home Medications Medication Instructions Recorded Confirmed multivitamin (Multiple Vitamins) 1 tab PO DAILY #0 12/21/16 10/09/21 fluticasone propionate 50 1 spray INTRANASAL DAILY PRN #0 11/03/17 10/09/21 mcg/actuation nasal spray,suspension trazodone 100 mg tablet 400 tab PO BEDTIME 12/10/17 10/09/21 levalbuterol HCl 1.25 mg/3 mL 3 ml INHALATION Q6H PRN 10/17/18 10/09/21 solution for nebulization metoprolol tartrate 100 mg tablet 100 mg PO BID 10/17/18 10/09/21 cetirizine 10 mg capsule (Zyrtec) 10 mg PO DAILY 05/23/19 10/09/21 ferrous sulfate 325 mg (65 mg 325 mg PO DAILY 10/20/19 10/09/21 iron) tablet,delayed release acetaminophen 300 mg-codeine 30 mg 1 tab PO Q6HR PRN 10/09/21 10/09/21 tablet furosemide 40 mg tablet (Lasix) 40 mg PO DAILY 10/09/21 10/09/21 glipizide 2.5 mg tablet, extended 2.5 mg PO DAILY 10/09/21 10/09/21 release 24 hr (Glucotrol XL) Previous Rx's Medication Instructions Recorded levalbuterol tartrate 45 1 puff INHALATION Q4-6H PRN #15 06/23/18 mcg/actuation aerosol inhaler gram (Xopenex HFA) acetaminophen 325 mg tablet 650 mg PO Q6H PRN #60 tab 11/07/20 (Athenol) oxycodone 5 mg tablet 10 mg PO Q4-5H PRN #60 tab 11/07/20 benzonatate 100 mg capsule 100 mg PO TID PRN #14 cap 03/06/21 (Tessalarnie Choi) cefdinir 300 mg capsule 300 mg PO BID #20 cap 10/10/21 meclizine 25 mg tablet 25 mg PO QID PRN #30 tab 10/10/21 amoxicillin 875 mg-potassium 1 tab PO BID 7 Days #14 tab 11/20/21 clavulanate 125 mg tablet amoxicillin 875 mg-potassium 1 tab PO BID 7 Days #14 tab 11/20/21 clavulanate 125 mg tablet diclofenac sodium 1 % topical gel 2 g TOPICAL QID #100 g 11/20/21 diclofenac sodium 1 % topical gel 2 g TOPICAL QID #100 g 11/20/21 methocarbamol 500 mg tablet 500 mg PO Q8H PRN #14 tab 11/20/21 oxycodone-acetaminophen 5 mg-325 1 tab PO Q8H PRN #10 tab 11/20/21 mg tablet (Percocet) oxycodone-acetaminophen 5 mg-325 1 tab PO TID PRN #10 tab 11/20/21 mg tablet (Percocet) prednisone 50 mg tablet 50 mg PO DAILY #5 tab 11/20/21 prednisone 50 mg tablet 50 mg PO DAILY 5 Days tab 11/20/21 Allergies Allergy/AdvReac Type Severity Reaction Status Date / Time celecoxib [CELECOXIB] Allergy Mild SWELLING Verified 04/17/21 12:13 latex [LATEX] Allergy Mild RASH Verified 04/17/21 12:13 W/EXTENDED EXPOSURE Sulfa (Sulfonamide Allergy Mild RASH Verified 04/17/21 12:13 Antibiotics) [SULFA (SULFONAMIDE ANTIBIOTICS)] varenicline [VARENICLINE] AdvReac Severe Paranoia Verified 04/17/21 12:13 buprenorphine [BUPRENORPHINE] AdvReac Mild NAUSEA, Verified 04/17/21 12:13 DIZZINESS hyoscyamine [HYOSCYAMINE] AdvReac Mild LEG Verified 04/17/21 12:13 JERKING, ANXIETY, NAUSEA W/I MINUTES [id number] Reductase AdvReac Mild WEAK Verified 04/17/21 12:13 Inhibitor MUSCLES [[id number] REDUCTASE INHIBITOR] diazepam [From Valium] AdvReac Confusion Verified 04/17/21 12:13 Review of Systems <JORDAN Katz - Last Filed: 11/20/21 15:22> Review of Systems Narrative: General: denies fever, chills, malaise, sweats, fatigue Head/Neck: denies headache, neck pain, dizziness Eyes: denies visual changes, eye pain Cardio: denies chest pain, palpitations, edema Respiratory: Endorses dyspnea, +cough, increased sinus drainage, productive cough, denies any shortness of breath with exertion or orthopnea GI: denies abdominal pain, nausea, vomiting, or diarrhea : denies dysuria, hematuria, urinary retention, frequency or incontinence MSK: denies joint pain, muscle weakness, endorses low back pain at baseline Skin: denies rash, itching, skin lesions or other Neuro: denies numbness, tingling Patient History <JORDAN Katz - Last Filed: 11/20/21 15:22> Medical History Achalasia Anginal pain Asthma Atrial fibrillation Cervical spinal stenosis Chronic obstructive pulmonary disease (10/23/16) COPD (chronic obstructive pulmonary disease) Coronary artery disease History of aortic dissection (~08/2007) Hypertension Ischemic cardiomyopathy Narcotic dependence Neck pain, chronic Ventricular bigeminy Surgical History H/O arthroscopic knee surgery (11/15/17) History of arthroplasty of right knee History of bilateral total hip arthroplasty History of cardiac cath (~03/2014) History of esophageal surgery History of incision and drainage (~2016) History of prior ablation treatment (~03/2017) History of surgery Hx of cholecystectomy Hx of hernia repair Hx of sinus surgery S/P CABG x 3 (~08/2007) S/P cervical spinal fusion S/P lumbar fusion Family History Mother Stroke Social History household members: spouse Smoking Status: Former smoker alcohol intake: current substance use type: does not use Smoking Status: Former smoker alcohol intake frequency: holidays/special occasions only Substance Use Type: does not use Exam <JORDAN Katz - Last Filed: 11/20/21 15:22> Narrative Exam Narrative: Independently reviewed vitals signs and nursing notes. General: cooperative, comfortable, in no acute distress, well developed and well groomed Head: atraumatic, symmetrical facial expressions Neck: supple, atraumatic, without lymphadenopathy. Eyes: pupils equal round and reactive, EOMI, conjunctiva normal Nose: nares patent, no rhinorrhea Mouth/Throat: uvula midline, moist mucus membranes Cardiovascular: regular rate and rhythm, no peripheral edema, warm extremities Respiratory: normal effort, able to speak in complete sentences, no audible stridor, or rales. No retractions or tachypnea. Inspiratory and expiratory wheezes throughout all matos, no crackles, rales, or absent sounds. GI: abdomen soft, nontender to palpation, nondistended, no masses, no exquisite tenderness with exam, without guarding or rebound. MSK: moves all extremities, ambulatory w/steady gait, neurovascularly intact, no weakness Skin: brisk capillary refill, no rash, no erythema Neuro: normal speech and cognition, A&O x3, normal tone Psych: mental status is grossly normal, congruent mood, normal affect, pleasant and cooperative Initial Vital Signs Initial Vital Signs: Vital Signs Temperature 97.8 F 11/20/21 10:50 Pulse Rate 83 11/20/21 10:50 Respiratory Rate 22 11/20/21 10:50 Blood Pressure 185/89 H 11/20/21 10:50 Pulse Oximetry 95 11/20/21 10:50 <Lorena John DO - Last Filed: 11/20/21 20:46> Initial Vital Signs Initial Vital Signs: Vital Signs Temperature 97.8 F 11/20/21 10:50 Pulse Rate 83 11/20/21 10:50 Respiratory Rate 22 11/20/21 10:50 Blood Pressure 185/89 H 11/20/21 10:50 Pulse Oximetry 95 11/20/21 10:50 Course <JORDAN Katz - Last Filed: 11/20/21 15:22> Orders Ordered: ED Orders 11/20/21 12:36 Consult to Respiratory Therapy Evaluate & Treat 11/20/21 13:29 EKG-12 Lead Routine Discontinued Medications Albuterol (Albuterol 2.5 Mg/3 Ml Neb (Adult)) 2.5 mg INH Q20M LAUREN Stop: 11/20/21 13:56 Albuterol (Albuterol 2.5 Mg/3 Ml Neb (Adult)) 2.5 mg INH NOW ONE Stop: 11/20/21 13:23 Last Admin: 11/20/21 13:23 Dose: 2.5 mg Documented by: TAYLOR Albuterol/Ipratropium (Albuterol/Ipratropium 3 Ml Ampul) 3 ml INH Q1H PRN PRN Reason: Shortness Of Breath Last Admin: 11/20/21 12:42 Dose: 3 ml Documented by: RUTHIE Amoxicillin/Clavulanate Potassium (Amoxicillin/Clav 875/125 Mg) 1 tab PO NOW ONE Stop: 11/20/21 12:42 Last Admin: 11/20/21 12:54 Dose: 1 tab Documented by: ATAYLOR Hydromorphone HCl (Hydromorphone 0.5 Mg Inj) 0.5 mg IV NOW ONE Stop: 11/20/21 12:40 Last Admin: 11/20/21 12:54 Dose: 0.5 mg Documented by: ATAYLOR Sodium Chloride (Normal Saline 0.9%) 500 mls @ 1,000 mls/hr IV BOLUS ONE Stop: 11/20/21 13:08 Last Infusion: 11/20/21 13:43 Dose: 0 mls/hr Documented by: Admin: 04/14/22 12:53 Dose: 1,000 mls/hr Documented by: JODY Methylprednisolone (Methylprednisolone 125 Mg/2 Ml Vial) 125 mg IV NOW ONE Stop: 11/20/21 12:37 Last Admin: 11/20/21 12:53 Dose: 125 mg Documented by: JODY Oxycodone/Acetaminophen (Oxycodone/Acetaminophen 5/325 Tablet) 1 tab PO NOW ONE Stop: 11/20/21 13:16 Last Admin: 11/20/21 13:53 Dose: 1 tab Documented by: JODY Vital Signs Vital signs: Vital Signs - 8 hr 11/20/21 13:00 11/20/21 13:23 11/20/21 13:30 Pulse Rate 84 75 Respiratory Rate 32 H 21 Blood Pressure Pulse Oximetry 94 91 11/20/21 13:38 11/20/21 13:55 11/20/21 14:09 Pulse Rate 78 69 Respiratory Rate 20 Blood Pressure 212/88 H 212/93 H Pulse Oximetry 91 93 93 11/20/21 14:30 Pulse Rate 81 Respiratory Rate 18 Blood Pressure 183/76 H Pulse Oximetry 94 <Lorena John, - Last Filed: 11/20/21 20:46> Orders Ordered: ED Orders 11/20/21 12:36 Consult to Respiratory Therapy Evaluate & Treat 11/20/21 13:29 EKG-12 Lead Routine Discontinued Medications Albuterol (Albuterol 2.5 Mg/3 Ml Neb (Adult)) 2.5 mg INH Q20M LAUREN Stop: 11/20/21 13:56 Albuterol (Albuterol 2.5 Mg/3 Ml Neb (Adult)) 2.5 mg INH NOW ONE Stop: 11/20/21 13:23 Last Admin: 11/20/21 13:23 Dose: 2.5 mg Documented by: TAYLOR Albuterol/Ipratropium (Albuterol/Ipratropium 3 Ml Ampul) 3 ml INH Q1H PRN PRN Reason: Shortness Of Breath Last Admin: 11/20/21 12:42 Dose: 3 ml Documented by: RUTHIE Amoxicillin/Clavulanate Potassium (Amoxicillin/Clav 875/125 Mg) 1 tab PO NOW ONE Stop: 11/20/21 12:42 Last Admin: 11/20/21 12:54 Dose: 1 tab Documented by: JODY Hydromorphone HCl (Hydromorphone 0.5 Mg Inj) 0.5 mg IV NOW ONE Stop: 11/20/21 12:40 Last Admin: 11/20/21 12:54 Dose: 0.5 mg Documented by: JODY Sodium Chloride (Normal Saline 0.9%) 500 mls @ 1,000 mls/hr IV BOLUS ONE Stop: 11/20/21 13:08 Last Infusion: 11/20/21 13:43 Dose: 0 mls/hr Documented by: Admin: 11/20/21 12:53 Dose: 1,000 mls/hr Documented by: JODY Methylprednisolone (Methylprednisolone 125 Mg/2 Ml Vial) 125 mg IV NOW ONE Stop: 11/20/21 12:37 Last Admin: 11/20/21 12:53 Dose: 125 mg Documented by: JODY Oxycodone/Acetaminophen (Oxycodone/Acetaminophen 5/325 Tablet) 1 tab PO NOW ONE Stop: 11/20/21 13:16 Last Admin: 11/20/21 13:53 Dose: 1 tab Documented by: JODY Vital Signs Vital signs: Vital Signs - 8 hr 11/20/21 13:00 11/20/21 13:23 11/20/21 13:30 Pulse Rate 84 75 Respiratory Rate 32 H 21 Blood Pressure Pulse Oximetry 94 91 11/20/21 13:38 11/20/21 13:55 11/20/21 14:09 Pulse Rate 78 69 Respiratory Rate 20 Blood Pressure 212/88 H 212/93 H Pulse Oximetry 91 93 93 11/20/21 14:30 Pulse Rate 81 Respiratory Rate 18 Blood Pressure 183/76 H Pulse Oximetry 94 MDM - SOB/Dyspnea <JORDAN Katz - Last Filed: 11/20/21 15:22> Lab Data Result diagrams: 11/20/21 11:30 11/20/21 11:30 Labs: Lab Results 11/20/21 11/20/21 11/20/21 Range/Units 10:56 11:30 11:30 WBC 5.3 (4.5-11.0) X10^3/uL RBC 4.60 (4.5-5.9) X10^6/uL Hgb 14.4 (13.5-17.5) g/dL Hct 43.2 (41-53) % MCV 93.9 (80-100) fL MCH 31.4 (26-34) PG MCHC 33.4 (30-36) % RDW 13.5 (11.6-14.8) % Plt Count 207 (150-400) X10^3/uL Neut % (Auto) 63.5 (50-75) % Lymph % (Auto) 19.9 L (25-40) % Beckham % (Auto) 7.9 (3-14) % Eos % (Auto) 7.6 H (2-4) % Baso % (Auto) 1.1 (0-2) % Neut # (Auto) 3400 (6001-5432) /uL Lymph # (Auto) 1100 (1848-2693) /uL Beckham # (Auto) 400 (0-900) /uL Eos # (Auto) 400 (0-450) /uL Baso # (Auto) 100 (0-100) /uL Sodium 140 (137-145) mmol/L Potassium 4.1 (3.4-5.1) mmol/L Chloride 103 (98-107) mmol/L Carbon Dioxide 25 (22-32) mmol/L BUN 13 (9-20) mg/dL Creatinine 0.78 (0.66-1.25) mg/dL Estimated GFR > 60 (>60) mL/min BUN/Creatinine Ratio 16.7 (6-22) Glucose 201 H (80-110) mg/dL Lactate (0.7-2.1) mmol/L Calcium 8.5 (8.4-10.2) mg/dL Magnesium (1.6-2.3) mg/dL Total Bilirubin 0.5 (0.2-1.3) mg/dL AST 31 (17-59) IU/L ALT 26 (<50) IU/L Alkaline Phosphatase 61 (38-126) U/L Total Protein 7.7 (6.3-8.2) g/dL Albumin 4.6 (3.5-5.0) g/dL Globulin 3.1 (1.7-4.1) g/dL Albumin/Globulin Ratio 1.5 (1.0-2.8) SARS-CoV-2 (PCR) Negative (Negative) 11/20/21 11/20/21 11/20/21 Range/Units 11:30 11:30 14:10 WBC (4.5-11.0) X10^3/uL RBC (4.5-5.9) X10^6/uL Hgb (13.5-17.5) g/dL Hct (41-53) % MCV (80-100) fL MCH (26-34) PG MCHC (30-36) % RDW (11.6-14.8) % Plt Count (150-400) X10^3/uL Neut % (Auto) (50-75) % Lymph % (Auto) (25-40) % Beckham % (Auto) (3-14) % Eos % (Auto) (2-4) % Baso % (Auto) (0-2) % Neut # (Auto) (6351-4491) /uL Lymph # (Auto) (3375-4171) /uL Beckham # (Auto) (0-900) /uL Eos # (Auto) (0-450) /uL Baso # (Auto) (0-100) /uL Sodium (137-145) mmol/L Potassium (3.4-5.1) mmol/L Chloride (98-107) mmol/L Carbon Dioxide (22-32) mmol/L BUN (9-20) mg/dL Creatinine (0.66-1.25) mg/dL Estimated GFR (>60) mL/min BUN/Creatinine Ratio (6-22) Glucose (80-110) mg/dL Lactate 3.7 H 1.8 (0.7-2.1) mmol/L Calcium (8.4-10.2) mg/dL Magnesium 1.8 (1.6-2.3) mg/dL Total Bilirubin (0.2-1.3) mg/dL AST (17-59) IU/L ALT (<50) IU/L Alkaline Phosphatase (38-126) U/L Total Protein (6.3-8.2) g/dL Albumin (3.5-5.0) g/dL Globulin (1.7-4.1) g/dL Albumin/Globulin Ratio (1.0-2.8) SARS-CoV-2 (PCR) (Negative) Imaging Data Chest x-ray: Radiologist's Impression: PROCEDURE:? XR CHEST 2V ? INDICATIONS:? shortness of breath ? TECHNIQUE:? 2 views of the chest were acquired.? ? COMPARISON:? [facility], CR, XR CHEST 1V, 10/08/2021, 21:56. ? FINDINGS:? ? Surgical changes and devices:? Redemonstrated sternotomy wires, evidence of CA BG, and cervical spine hardware.? ? Lungs and pleura:? Coarsened interstitial markings.? No consolidation, pleural effusions or pneumothorax.? ? Mediastinum:? Mediastinal contours are normal.? Heart size is normal.? ? Bones and chest wall:? No suspicious bony abnormalities.? Soft tissues appear unremarkable.? ? IMPRESSION:? No acute cardiopulmonary abnormality. ? ? Dictated by: Dima Horn M.D. on 11/20/2021 at 11:55 ? ? Approved by: Dima Horn M.D. on 11/20/2021 at 11:56 ? ECG Data Interpretation: EKG reviewed by myself and Dr. John reveals normal sinus rhythm at [84] bpm with rightward axis and intervals. No STEMI, ST segment changes, arrhythmia, or acute ischemic changes. MDM Narrative Medical decision making narrative: To the emergency department with history of COPD, seasonal allergies, and what I presume is bronchiectasis with exacerbation of his COPD. Patient had his return extra Corina wheezes throughout all lung matos, was not in any acute distress, has been afebrile, without signs of sepsis, without tachycardia or hypotension. Chest x-ray does not show any acute cardiopulmonary abnormality. Patient has a history of allergic rhinitis, currently using Flonase, Zyrtec, Benadryl, Singulair, levalbuterol, nebulizers, and Percocet for his low back pain. He endorses that he takes Dulcolax to prevent constipation. He is also complaining of low back pain exacerbation. Lab work was significant for an elevated lactate without leukocytosis or left shift, lactate was 3.7, he was given 500 mL of normal saline for dehydration, recheck lactate was 1.8. Patient did not have any tachycardia, weakness, altered mentation, fever. No other significant findings on his lab work today. Patient has a history of hypert ension and was hypertensive during his stay, he did receive 1 DuoNeb, followed by an albuterol neb for ongoing extra Corina wheezes but he improved greatly after the 1st and even more so after the 2nd. He was not in any respiratory distress, main complaint was fatigue. He was given 125 mg of Solu-Medrol, and a prescription of Augmentin b.i.d. for the next [address] inspector is Dr. Deon flower. Recommend humidifier, sinus rinses, continuing his allergic rhinitis medications, follow-up with his road inspector and primary care provider. Patient did not have any hypoxia or respiratory distress. Patient was given strict return precautions. EKG did not have any STEMI, no ST changes, normal sinus rhythm 84 beats per minute. Patient is appropriate and amenable to discharge home. Vital signs are stable on repeat examination is unremarkable. Patient has been informed of results. Patient has been given strict return to ER precautions for any new or worsening symptoms. Patient understands to follow up closely with outpatient providers as instructed. Patient understands plan and agrees to discharge home. All questions and concerns answered at this time. <Lorena John, DO - Last Filed: 11/20/21 20:46> Lab Data Labs: Lab Results 11/20/21 11/20/21 11/20/21 Range/Units 10:56 11:30 11:30 WBC 5.3 (4.5-11.0) X10^3/uL RBC 4.60 (4.5-5.9) X10^6/uL Hgb 14.4 (13.5-17.5) g/dL Hct 43.2 (41-53) % MCV 93.9 (80-100) fL MCH 31.4 (26-34) PG MCHC 33.4 (30-36) % RDW 13.5 (11.6-14.8) % Plt Count 207 (150-400) X10^3/uL Neut % (Auto) 63.5 (50-75) % Lymph % (Auto) 19.9 L (25-40) % Beckham % (Auto) 7.9 (3-14) % Eos % (Auto) 7.6 H (2-4) % Baso % (Auto) 1.1 (0-2) % Neut # (Auto) 3400 (3503-8073) /uL Lymph # (Auto) 1100 (1482-9228) /uL Beckham # (Auto) 400 (0-900) /uL Eos # (Auto) 400 (0-450) /uL Baso # (Auto) 100 (0-100) /uL Sodium 140 (137-145) mmol/L Potassium 4.1 (3.4-5.1) mmol/L Chloride 103 (98-107) mmol/L Carbon Dioxide 25 (22-32) mmol/L BUN 13 (9-20) mg/dL Creatinine 0.78 (0.66-1.25) mg/dL Estimated GFR > 60 (>60) mL/min BUN/Creatinine Ratio 16.7 (6-22) Glucose 201 H (80-110) mg/dL Lactate (0.7-2.1) mmol/L Calcium 8.5 (8.4-10.2) mg/dL Magnesium (1.6-2.3) mg/dL Total Bilirubin 0.5 (0.2-1.3) mg/dL AST 31 (17-59) IU/L ALT 26 (<50) IU/L Alkaline Phosphatase 61 (38-126) U/L Total Protein 7.7 (6.3-8.2) g/dL Albumin 4.6 (3.5-5.0) g/dL Globulin 3.1 (1.7-4.1) g/dL Albumin/Globulin Ratio 1.5 (1.0-2.8) SARS-CoV-2 (PCR) Negative (Negative) 11/20/21 11/20/21 11/20/21 Range/Units 11:30 11:30 14:10 WBC (4.5-11.0) X10^3/uL RBC (4.5-5.9) X10^6/uL Hgb (13.5-17.5) g/dL Hct (41-53) % MCV (80-100) fL MCH (26-34) PG MCHC (30-36) % RDW (11.6-14.8) % Plt Count (150-400) X10^3/uL Neut % (Auto) (50-75) % Lymph % (Auto) (25-40) % Beckham % (Auto) (3-14) % Eos % (Auto) (2-4) % Baso % (Auto) (0-2) % Neut # (Auto) (1624-8260) /uL Lymph # (Auto) (7399-6733) /uL Beckham # (Auto) (0-900) /uL Eos # (Auto) (0-450) /uL Baso # (Auto) (0-100) /uL Sodium (137-145) mmol/L Potassium (3.4-5.1) mmol/L Chloride (98-107) mmol/L Carbon Dioxide (22-32) mmol/L BUN (9-20) mg/dL Creatinine (0.66-1.25) mg/dL Estimated GFR (>60) mL/min BUN/Creatinine Ratio (6-22) Glucose (80-110) mg/dL Lactate 3.7 H 1.8 (0.7-2.1) mmol/L Calcium (8.4-10.2) mg/dL Magnesium 1.8 (1.6-2.3) mg/dL Total Bilirubin (0.2-1.3) mg/dL AST (17-59) IU/L ALT (<50) IU/L Alkaline Phosphatase (38-126) U/L Total Protein (6.3-8.2) g/dL Albumin (3.5-5.0) g/dL Globulin (1.7-4.1) g/dL Albumin/Globulin Ratio (1.0-2.8) SARS-CoV-2 (PCR) (Negative) Discharge Plan Departure Patient Disposition: Home Clinical Impression: COPD exacerbation Bronchiectasis Qualifiers: Bronchiectasis type: with acute exacerbation Qualified Code(s): J47.1 - Bronchiectasis with (acute) exacerbation Instructions: Pneumonia-Adult, Chronic Obstructive Pulmonary Disease, Chronic Bronchitis Activity Restrictions/Additional Instructions: *You have been diagnosed with bronchiectasis and a COPD exacerbation. Please continue doing all of the things were doing for your allergies including Flonase morning and night, levalbuterol, Zyrtec, Benadryl, Singulair, stool softeners, nebs as often as you need them. I have called in Augmentin, prednisone, Percocet, and diclofenac gel, and muscle relaxers for all of your symptoms. Please continue doing what you are doing, stay hydrated, thank you for trusting us with your care, I hope that you feel better soon. Please follow-up with your road inspector, wish you the best. *What to do: *Please continue to take your regular medications as directed. [x ] New medication prescriptions sent to your pharmacy: [ [facility]] [ ] New medication written as a paper prescription [ ] No new medications given *Please follow up with your primary care provider in 2-3 days, call for an appointment. Let them know you were seen in the Emergency Department and that we asked that you be seen for follow-up. We will electronically transmit a record of today's note if your PCP is in our system *If you do not have a primary care provider please contact [phone] to establish care with one of the [facility] primary care providers. *Return to Emergency Department if you should have any new, worsening or concerning symptoms, such as [fever greater than 101F, chills, worsening pain, persistent vomiting or other bothersome symptoms] Prescriptions: New amoxicillin-pot clavulanate 875-125 mg tablet 1 tab PO BID 7 Days Qty: 14 0RF prednisone 50 mg tablet 50 mg PO DAILY 5 Days 0RF oxycodone-acetaminophen [Percocet] 5-325 mg tablet 1 tab PO TID PRN (Reason: pain) Qty: 10 0RF diclofenac sodium 1 % gel 2 g topical QID Qty: 100 0RF Rx Instructions: apply to single elbow, wrist or hand; for hand includes palm/fingers/back of hand prednisone 50 mg tablet 50 mg PO DAILY Qty: 5 0RF oxycodone-acetaminophen [Percocet] 5-325 mg tablet 1 tab PO Q8H PRN (Reason: pain) Qty: 10 0RF amoxicillin-pot clavulanate 875-125 mg tablet 1 tab PO BID 7 Days Qty: 14 0RF diclofenac sodium 1 % gel 2 g topical QID Qty: 100 0RF Rx Instructions: apply to single elbow, wrist or hand; for hand includes palm/fingers/back of hand methocarbamol 500 mg tablet 500 mg PO Q8H PRN (Reason: muscle spasm) Qty: 14 0RF No Action multivitamin [Multiple Vitamins] 1 EACH tablet 1 tab PO DAILY Qty: 0 0RF fluticasone propionate 16 GM spray,suspension 1 spray Intranasal DAILY PRN (Reason: Allergy Symptoms) Qty: 0 0RF ferrous sulfate 325 mg (65 mg iron) tablet,delayed release (DR/EC) 325 mg PO DAILY 0RF Label Comments: take 1 tablet by mouth once daily oxycodone 5 mg Tablet 10 mg PO Q4-5H PRN (Reason: Pain, Severe (7-10)) Qty: 60 0RF acetaminophen [Athenol] 325 mg tablet 650 mg PO Q6H PRN (Reason: pain) Qty: 60 0RF furosemide [Lasix] 40 mg tablet 40 mg PO DAILY 0RF glipizide [Glucotrol XL] 2.5 mg tablet extended release 24 hr 2.5 mg PO DAILY 0RF Label Comments: Spouse Cristel called & reported patient not taking it regularly. acetaminophen-codeine 300-30 mg tablet 1 tab PO Q6HR PRN (Reason: Back Pain) 0RF cefdinir 300 mg capsule 300 mg PO BID Qty: 20 0RF meclizine 25 mg tablet 25 mg PO QID PRN (Reason: vertigo) Qty: 30 0RF trazodone 100 mg tablet 400 tab PO BEDTIME 0RF Label Comments: patient states weaning off. levalbuterol tartrate [Xopenex HFA] 45 mcg/actuation HFA aerosol inhaler 1 puff INHALATION Q4-6H PRN (Reason: shortness of breath or wheezing) Qty: 15 0RF metoprolol tartrate 100 mg tablet 100 mg PO BID 0RF Label Comments: take 1 tablet by mouth twice a day levalbuterol HCl 1.25 mg/3 mL solution for nebulization 3 ml Inhalation Q6H PRN (Reason: Shortness Of Breath) 0RF Label Comments: INHALE 1 VIAL PER NEBULIZER EVERY 6 HOURS NEEDED Zyrtec 10 mg Capsule 10 mg PO DAILY 0RF benzonatate [Tessalon Perles] 100 mg capsule 100 mg PO TID PRN (Reason: cough) Qty: 14 0RF Referrals: Romi Tavera MD [Primary Care Provider] - Alphonse Holt MD [Non-Staff] - Karthikeyan Wilson MD [Physician] - <Lorena John DO - Last Filed: 11/20/21 20:46> [facility]: I was immediately available in the department for consultation. Documentation has been reviewed. I agree with assessment and plan.
[2021-11-20] MEDS: ALBUTEROL 2.5 MG/3 ML NEB (ADULT) INH (13:23)
[2021-11-20 13:36] LABS: Reflexed Lactate in 2 Hours Y
[2021-11-20] MEDS: OXYCODONE/ACETAMINOPHEN 5/325 TABLET 1 TAB PO (13:53)
--- NOTE | 2021-11-20 14:15 | PC.NURSE ---
Pt removed telemetry monitoring and states he feels better, is ready to d/c. Educated pt on lactate re-draw and waiting results prior to d/c, pt verbalizes understanding. Pt in wheelchair in room, rolling around, agreed to wear pulse ox monitor. Removed blood pressure, noted to be elevated, pt states he takes blood pressure medications and has been taking as prescribed.
[2021-11-20 14:35] LABS: Lactate 2HR (Lactic Acid Rflx) 1.8 mmol/L (0.7-2.1)
== END 2021-11-20 14:46 | disposition home or self-care (01) ==
PROVIDERS: Emergency Medicine; Emergency Provider Nurse Practitioner Critical Care Medicine; PCP Internal Medicine
DX: J44.1 Chronic obstructive pulmonary disease with (acute) exacerbation (principal); Z87.891 Personal history of nicotine dependence; Z88.2 Allergy status to sulfonamides; Z20.822 Contact with and (suspected) exposure to COVID-19
CPT/HCPCS: 36415; 71046; 80053; 83605; 83735; 85025; 87635; 93005; 93010; 94150; 94640; 96361; 96374; 96375; 99284; C9803; J1170; J2930; J7613

== ENCOUNTER 2021-11-29 14:48 | Emergency (ER) | payer OTHER, SELFPAY ==
[2021-10-09 01:09] VITALS: BMI 30.2
[2021-11-29] VITALS (14 sets, daily range): BP systolic 113–159; BP diastolic 63–90; PULSE 53–94; RESP 14–39; TEMP 36.8; O2SAT 90–98
--- NOTE | 2021-11-29 15:00 | DI.RAD.S_ITS ---
PROCEDURE: XR CHEST 1V INDICATIONS: shortness of breath TECHNIQUE: One view of the chest was acquired. COMPARISON: [facility], CR, XR CHEST 2V, 11/20/2021, 11:23. FINDINGS: Surgical changes and devices: Midline sternal wires mediastinal vascular clips present. Lower cervical spine hardware. No acute cardiopulmonary findings Lungs and pleura: Lungs are clear. No pleural effusions or pneumothorax. Mediastinum: Mediastinal contours appear normal. Heart size is normal. Bones and chest wall: No suspicious bony lesions. Overlying soft tissues appear unremarkable. IMPRESSION: No acute cardiopulmonary findings Approved by: Hugo Humphrey M.D. on 11/29/2021 at 16:02
[2021-11-29] MEDS: ALBUTEROL 2.5 MG/3 ML NEB (ADULT) 5 MG INH (15:14)
[2021-11-29] MEDS: ALBUTEROL/IPRATROPIUM 3 ML AMPUL INH (15:14)
[2021-11-29 15:16] LABS: Add Manual Diff / Slide Review NO; Basophils Absolute Auto 100 /uL (0-100); Basophils Percent Auto 1.2 % (0-2); Eosinophils Absolute Auto 800 /uL (0-450); Eosinophils Percent Auto 10.4 % (2-4); Hematocrit 42.9 % (41-53); Hemoglobin 14.7 g/dL (13.5-17.5); Lymphocytes Absolute Auto 1700 /uL (1100-4500); Lymphocytes Percent Auto 23.5 % (25-40); Mean Corpuscular HGB Conc 34.4 % (30-36); Mean Corpuscular Volume 93.2 fL (80-100); Monocytes Absolute Auto 700 /uL (0-900); Monocytes Percent Auto 9.7 % (3-14); Neutrophils Absolute Auto 4000 /uL (1500-7000); Neutrophils Percent Auto 55.2 % (50-75); Platelet Count 236 X10^3/uL (150-400); Red Blood Cell Count 4.61 X10^6/uL (4.5-5.9); Red Cell Distribution Width 13.6 % (11.6-14.8); White Blood Cell Count 7.3 X10^3/uL (4.5-11.0)
[2021-11-29 15:31] LABS: Lactate (Lactic Acid) 2.6 mmol/L (0.7-2.1)
[2021-11-29 15:32] LABS: Alanine Aminotransferase 29 IU/L (<50); Albumin 4.4 g/dL (3.5-5.0); Albumin Globulin Ratio 1.4 (1.0-2.8); Alkaline Phosphatase 68 U/L (38-126); Aspartate Aminotransferase 30 IU/L (17-59); BUN Creatinine Ratio 17.1 (6-22); Bilirubin Total 0.6 mg/dL (0.2-1.3); Blood Urea Nitrogen 13 mg/dL (9-20); Calcium 8.6 mg/dL (8.4-10.2); Carbon Dioxide 26 mmol/L (22-32); Chloride 104 mmol/L (98-107); Estimated Glomerular Filt Rate > 60 mL/min (>60); Globulin 3.2 g/dL (1.7-4.1); Glucose 98 mg/dL (80-110); HEMOLYSIS < 15 (0-50); Potassium 4.6 mmol/L (3.4-5.1); Sodium 140 mmol/L (137-145); Total Protein 7.6 g/dL (6.3-8.2)
[2021-11-29] MEDS: OXYCODONE/ACETAMINOPHEN 5/325 TABLET 2 TAB PO (16:12)
[2021-11-29 17:02] LABS: D Dimer 232 ng/mL (<230)
[2021-11-29 17:04] LABS: NT-proBNP (BNP-Adult 18+) 190 pg/mL (<450); Troponin I < 0.012 ng/mL (0.01-0.034)
[2021-11-29 17:09] LABS: Procalcitonin 0.04 ng/mL (<0.5)
[2021-11-29 17:11] LABS: Reflexed Lactate in 2 Hours Y
--- NOTE | 2021-11-29 17:11 | ED.GENADULT ---
HPI - General Adult General Chief complaint: Shortness of Breath/Dyspnea Stated complaint: Has pneumonia- told by to come Time Seen by Provider: 11/29/21 15:10 Source: patient and family Mode of arrival: Wheelchair History of Present Illness HPI narrative: 76-year-old gentleman with a history of COPD, chronic atrial fibrillation not anticoagulated, ischemic cardiomyopathy, history of mesenteric ischemia, hypertension and recently diagnosed with pneumonia in October of 2021. He has been using Flonase, levalbuterol, Zyrtec, Benadryl, Singulair and in the past has been benefited with Augmentin and steroids. His advertising supervisor is Dr. Holt. He is concerned that his cough is continuing to keep him awake and that his 5 days of amoxicillin was not enough to ?cut it?. He reports no orthopnea but no lower extremity edema. No fevers. Significant yet nonproductive cough with significant wheeze. No palpitations. With extensive coughing he does note occasional headaches. He has had no nausea, vomiting or diarrhea. No abdominal pain. Related Data Home Medications Medication Instructions Recorded Confirmed multivitamin (Multiple Vitamins) 1 tab PO DAILY #0 12/21/16 10/09/21 fluticasone propionate 50 1 spray INTRANASAL DAILY PRN #0 11/03/17 10/09/21 mcg/actuation nasal spray,suspension trazodone 100 mg tablet 400 tab PO BEDTIME 12/10/17 10/09/21 levalbuterol HCl 1.25 mg/3 mL 3 ml INHALATION Q6H PRN 10/17/18 10/09/21 solution for nebulization metoprolol tartrate 100 mg tablet 100 mg PO BID 10/17/18 10/09/21 cetirizine 10 mg capsule (Zyrtec) 10 mg PO DAILY 05/23/19 10/09/21 ferrous sulfate 325 mg (65 mg 325 mg PO DAILY 10/20/19 10/09/21 iron) tablet,delayed release acetaminophen 300 mg-codeine 30 mg 1 tab PO Q6HR PRN 10/09/21 10/09/21 tablet furosemide 40 mg tablet (Lasix) 40 mg PO DAILY 10/09/21 10/09/21 glipizide 2.5 mg tablet, extended 2.5 mg PO DAILY 10/09/21 10/09/21 release 24 hr (Glucotrol XL) Previous Rx's Medication Instructions Recorded levalbuterol tartrate 45 1 puff INHALATION Q4-6H PRN #15 06/23/18 mcg/actuation aerosol inhaler gram (Xopenex HFA) acetaminophen 325 mg tablet 650 mg PO Q6H PRN #60 tab 11/07/20 (Athenol) oxycodone 5 mg tablet 10 mg PO Q4-5H PRN #60 tab 11/07/20 benzonatate 100 mg capsule 100 mg PO TID PRN #14 cap 03/06/21 (Tessalon Perles) cefdinir 300 mg capsule 300 mg PO BID #20 cap 10/10/21 meclizine 25 mg tablet 25 mg PO QID PRN #30 tab 10/10/21 diclofenac sodium 1 % topical gel 2 g TOPICAL QID #100 g 11/20/21 diclofenac sodium 1 % topical gel 2 g TOPICAL QID #100 g 11/20/21 methocarbamol 500 mg tablet 500 mg PO Q8H PRN #14 tab 11/20/21 oxycodone-acetaminophen 5 mg-325 1 tab PO Q8H PRN #10 tab 11/20/21 mg tablet (Percocet) oxycodone-acetaminophen 5 mg-325 1 tab PO TID PRN #10 tab 11/20/21 mg tablet (Percocet) prednisone 50 mg tablet 50 mg PO DAILY #5 tab 11/20/21 albuterol sulfate 1.25 mg/3 mL 2.5 mg (6 mL) INHALATION QID #90 ml 11/29/21 solution for nebulization prednisone 20 mg tablet 20 mg PO DAILY #32 tab 11/29/21 Allergies Allergy/AdvReac Type Severity Reaction Status Date / Time celecoxib [CELECOXIB] Allergy Mild SWELLING Verified 11/29/21 15:33 latex [LATEX] Allergy Mild RASH Verified 11/29/21 15:33 W/EXTENDED EXPOSURE Sulfa (Sulfonamide Allergy Mild RASH Verified 11/29/21 15:33 Antibiotics) [SULFA (SULFONAMIDE ANTIBIOTICS)] varenicline [VARENICLINE] AdvReac Severe Paranoia Verified 11/29/21 15:33 buprenorphine [BUPRENORPHINE] AdvReac Mild NAUSEA, Verified 11/29/21 15:33 DIZZINESS hyoscyamine [HYOSCYAMINE] AdvReac Mild LEG Verified 11/29/21 15:33 JERKING, ANXIETY, NAUSEA W/I MINUTES [id number] Reductase AdvReac Mild WEAK Verified 11/29/21 15:33 Inhibitor MUSCLES [WRERUQN-ADP-ICK REDUCTASE INHIBITOR] diazepam [From Valium] AdvReac Confusion Verified 11/29/21 15:33 Review of Systems Review of Systems Narrative: Remainder of complete review of systems is otherwise unremarkable except for that included in the HPI. Patient History Medical History Achalasia Anginal pain Asthma Atrial fibrillation Cervical spinal stenosis Chronic obstructive pulmonary disease (10/23/16) COPD (chronic obstructive pulmonary disease) Coronary artery disease History of aortic dissection (~08/2007) Hypertension Ischemic cardiomyopathy Narcotic dependence Neck pain, chronic Ventricular bigeminy Surgical History H/O arthroscopic knee surgery (11/15/17) History of arthroplasty of right knee History of bilateral total hip arthroplasty History of cardiac cath (~03/2014) History of esophageal surgery History of incision and drainage (~2016) History of prior ablation treatment (~03/2017) History of surgery Hx of cholecystectomy Hx of hernia repair Hx of sinus surgery S/P CABG x 3 (~08/2007) S/P cervical spinal fusion S/P lumbar fusion Family History Mother Stroke Social History household members: spouse Smoking Status: Former smoker alcohol intake: current substance use type: does not use Smoking Status: Former smoker alcohol intake frequency: holidays/special occasions only Substance Use Type: does not use Exam Initial Vital Signs Initial Vital Signs: Vital Signs Blood Pressure 132/90 11/29/21 14:59 General: Chronically ill-appearing with moderate dry cough, audible wheeze, but Able to give a complete and coherent history. HEENT: Moist mucous membranes, normal sclera with reactive pupils, Neck: No JVD, supple Respiratory: Lungs with significant wheeze but able to speak in full sentences, no rhonchi no crackles. Full and symmetrical air movement Cardiac: Regular rate and rhythm no murmurs no bruits Abdomen: Soft, nontender, good bowel tones, no flank pain Skin: Warm and dry, no rashes Neurologic: Grossly neurologically intact with no obvious asymmetries or abnormalities Extremities: No trauma, well perfused, no lower extremity edema Psych: Cooperative, appropriate insight and affect Course Orders Ordered: ED Orders 11/29/21 13:51 Respiratory Panel (Film Array) Stat 11/29/21 15:00 XR chest 1V Stat RT Consult Eval and Treat Now 11/29/21 15:04 EKG-12 Lead Stat 11/29/21 15:05 Complete Blood Count AUTO DIFF Stat Comprehensive Metabolic Panel Stat Lactate (Lactic Acid) Stat 11/29/21 16:36 BNP [NT-proBNP (BNP-Adult 18+)] Stat D Dimer Stat Procalcitonin Stat Trop I [Troponin I] Stat Discontinued Medications Albuterol (Albuterol 2.5 Mg/3 Ml Neb (Adult)) 5 mg INH NOW ONE Stop: 11/29/21 15:11 Last Admin: 11/29/21 15:14 Dose: 5 mg Documented by: CTR.[email or web address] Albuterol (Albuterol 2.5 Mg/3 Ml Neb (Adult)) 5 mg INH NOW ONE Stop: 11/29/21 17:38 Albuterol/Ipratropium (Albuterol/Ipratropium 3 Ml Ampul) 3 ml INH NOW ONE Stop: 11/29/21 15:11 Last Admin: 11/29/21 15:14 Dose: 3 ml Documented by: CTR.TVO Sodium Chloride (Normal Saline 0.9%) 1,000 mls @ 1,000 mls/hr IV BOLUS ONE Stop: 11/29/21 17:35 Last Admin: 11/29/21 18:04 Dose: 1,000 mls/hr Documented by: Magnesium Sulfate (Magnesium Sulfate) 2 gm in 50 mls @ 150 mls/hr IV NOW ONE Stop: 11/29/21 17:56 Last Admin: 11/29/21 18:09 Dose: 150 mls/hr Documented by: Sodium Chloride (Normal Saline 0.9%) 1,000 mls @ 1,000 mls/hr IV BOLUS ONE Stop: 11/29/21 18:36 Last Admin: 11/29/21 18:08 Dose: 1,000 mls/hr Documented by: Ketorolac Tromethamine (Ketorolac 30 Mg/Ml Vial) 15 mg IV NOW ONE Stop: 11/29/21 18:45 Methylprednisolone (Methylprednisolone 125 Mg/2 Ml Vial) 125 mg IV NOW ONE Stop: 11/29/21 17:38 Last Admin: 11/29/21 18:10 Dose: 125 mg Documented by: Oxycodone/Acetaminophen (Oxycodone/Acetaminophen 5/325 Tablet) 2 tab PO NOW ONE Stop: 11/29/21 16:02 Last Admin: 11/29/21 16:12 Dose: 2 tab Documented by: MARIUSZ Vital Signs Vital signs: Vital Signs - 8 hr 11/29/21 14:59 11/29/21 15:00 11/29/21 15:04 Temperature Pulse Rate 94 H 78 Respiratory Rate 39 H 28 H Blood Pressure 132/90 153/84 H Pulse Oximetry 95 95 11/29/21 15:08 11/29/21 15:10 11/29/21 15:15 Temperature 98.3 F Pulse Rate 86 56 L Respiratory Rate 30 H Blood Pressure 153/87 H 154/63 H Pulse Oximetry 98 93 90 L 11/29/21 15:30 11/29/21 16:00 11/29/21 16:15 Temperature Pulse Rate 74 73 78 Respiratory Rate 15 28 H 23 Blood Pressure 130/89 113/77 Pulse Oximetry 96 94 96 11/29/21 16:30 11/29/21 16:45 11/29/21 17:16 Temperature Pulse Rate 68 69 65 Respiratory Rate Blood Pressure 113/74 127/82 Pulse Oximetry 96 93 94 11/29/21 17:30 Temperature Pulse Rate 55 L Respiratory Rate 20 Blood Pressure Pulse Oximetry 93 Medical Decision Making Lab Data Result diagrams: 11/29/21 15:05 11/29/21 15:05 Labs: Lab Results 11/29/21 11/29/21 11/29/21 Range/Units 13:51 15:05 15:05 WBC 7.3 (4.5-11.0) X10^3/uL RBC 4.61 (4.5-5.9) X10^6/uL Hgb 14.7 (13.5-17.5) g/dL Hct 42.9 (41-53) % MCV 93.2 (80-100) fL MCH 32.0 (26-34) PG MCHC 34.4 (30-36) % RDW 13.6 (11.6-14.8) % Plt Count 236 (150-400) X10^3/uL Neut % (Auto) 55.2 (50-75) % Lymph % (Auto) 23.5 L (25-40) % [place] % (Auto) 9.7 (3-14) % Eos % (Auto) 10.4 H (2-4) % Baso % (Auto) 1.2 (0-2) % Neut # (Auto) 4000 (4577-2281) /uL Lymph # (Auto) 1700 (5292-9272) /uL [place] # (Auto) 700 (0-900) /uL Eos # (Auto) 800 H (0-450) /uL Baso # (Auto) 100 (0-100) /uL D-Dimer (<230) ng/mL Sodium 140 (137-145) mmol/L Potassium 4.6 (3.4-5.1) mmol/L Chloride 104 (98-107) mmol/L Carbon Dioxide 26 (22-32) mmol/L BUN 13 (9-20) mg/dL Creatinine 0.76 (0.66-1.25) mg/dL Estimated GFR > 60 (>60) mL/min BUN/Creatinine Ratio 17.1 (6-22) Glucose 98 D (80-110) mg/dL Lactate (0.7-2.1) mmol/L Calcium 8.6 (8.4-10.2) mg/dL Total Bilirubin 0.6 (0.2-1.3) mg/dL AST 30 (17-59) IU/L ALT 29 (<50) IU/L Alkaline Phosphatase 68 (38-126) U/L Troponin I (0.01-0.034) ng/mL NT-Pro-B Natriuret Pep (<450) pg/mL Total Protein 7.6 (6.3-8.2) g/dL Albumin 4.4 (3.5-5.0) g/dL Globulin 3.2 (1.7-4.1) g/dL Albumin/Globulin Ratio 1.4 (1.0-2.8) Procalcitonin (<0.5) ng/mL Chlamy pneumoniae PCR Not detected (Not Detect) Adenovirus (PCR) Not detected (Not Detect) B. pertussis DNA (PCR) Not detected (Not Detecte) B.parapertussis DNA PCR Not detected (Not Detecte) Coronavirus OC43 (PCR) Not detected (Not Detect) Coronavirus HKU1 (PCR) Not detected (Not Detect) Coronavirus 229E (PCR) Not detected (Not Detect) SARS-CoV-2 (PCR) Not detected (Not Detecte) Coronavirus NL63 (PCR) Not detected (Not Detect) Human Metapneumovir PCR Not detected (Not Detect) Influenza Type A (PCR) Not detected (Not Detect) Influenza Type B (PCR) Not detected (Not Detect) M. pneumoniae (PCR) Not detected (Not Detect) Parainfluenza 1 (PCR) Not detected (Not Detect) Parainfluenza 2 (PCR) Not detected (Not Detect) Parainfluenza 3 (PCR) Not detected (Not Detect) Parainfluenza 4 (PCR) Not detected (Not Detect) RSV (PCR) Not detected (Not Detect) Entero/Rhino (PCR) Not detected (Not Detect) 11/29/21 11/29/21 11/29/21 Range/Units 15:05 16:36 16:36 WBC (4.5-11.0) X10^3/uL RBC (4.5-5.9) X10^6/uL Hgb (13.5-17.5) g/dL Hct (41-53) % MCV (80-100) fL MCH (26-34) PG MCHC (30-36) % RDW (11.6-14.8) % Plt Count (150-400) X10^3/uL Neut % (Auto) (50-75) % Lymph % (Auto) (25-40) % [place] % (Auto) (3-14) % Eos % (Auto) (2-4) % Baso % (Auto) (0-2) % Neut # (Auto) (4730-4406) /uL Lymph # (Auto) (1042-8388) /uL [place] # (Auto) (0-900) /uL Eos # (Auto) (0-450) /uL Baso # (Auto) (0-100) /uL D-Dimer 232 H (<230) ng/mL Sodium (137-145) mmol/L Potassium (3.4-5.1) mmol/L Chloride (98-107) mmol/L Carbon Dioxide (22-32) mmol/L BUN (9-20) mg/dL Creatinine (0.66-1.25) mg/dL Estimated GFR (>60) mL/min BUN/Creatinine Ratio (6-22) Glucose (80-110) mg/dL Lactate 2.6 H (0.7-2.1) mmol/L Calcium (8.4-10.2) mg/dL Total Bilirubin (0.2-1.3) mg/dL AST (17-59) IU/L ALT (<50) IU/L Alkaline Phosphatase (38-126) U/L Troponin I < 0.012 (0.01-0.034) ng/mL NT-Pro-B Natriuret Pep 190 (<450) pg/mL Total Protein (6.3-8.2) g/dL Albumin (3.5-5.0) g/dL Globulin (1.7-4.1) g/dL Albumin/Globulin Ratio (1.0-2.8) Procalcitonin 0.04 (<0.5) ng/mL Chlamy pneumoniae PCR (Not Detect) Adenovirus (PCR) (Not Detect) B. pertussis DNA (PCR) (Not Detecte) B.parapertussis DNA PCR (Not Detecte) Coronavirus OC43 (PCR) (Not Detect) Coronavirus HKU1 (PCR) (Not Detect) Coronavirus 229E (PCR) (Not Detect) SARS-CoV-2 (PCR) (Not Detecte) Coronavirus NL63 (PCR) (Not Detect) Human Metapneumovir PCR (Not Detect) Influenza Type A (PCR) (Not Detect) Influenza Type B (PCR) (Not Detect) M. pneumoniae (PCR) (Not Detect) Parainfluenza 1 (PCR) (Not Detect) Parainfluenza 2 (PCR) (Not Detect) Parainfluenza 3 (PCR) (Not Detect) Parainfluenza 4 (PCR) (Not Detect) RSV (PCR) (Not Detect) Entero/Rhino (PCR) (Not Detect) 11/29/21 Range/Units 17:22 WBC (4.5-11.0) X10^3/uL RBC (4.5-5.9) X10^6/uL Hgb (13.5-17.5) g/dL Hct (41-53) % MCV (80-100) fL MCH (26-34) PG MCHC (30-36) % RDW (11.6-14.8) % Plt Count (150-400) X10^3/uL Neut % (Auto) (50-75) % Lymph % (Auto) (25-40) % [place] % (Auto) (3-14) % Eos % (Auto) (2-4) % Baso % (Auto) (0-2) % Neut # (Auto) (5337-9355) /uL Lymph # (Auto) (5032-5940) /uL [place] # (Auto) (0-900) /uL Eos # (Auto) (0-450) /uL Baso # (Auto) (0-100) /uL D-Dimer (<230) ng/mL Sodium (137-145) mmol/L Potassium (3.4-5.1) mmol/L Chloride (98-107) mmol/L Carbon Dioxide (22-32) mmol/L BUN (9-20) mg/dL Creatinine (0.66-1.25) mg/dL Estimated GFR (>60) mL/min BUN/Creatinine Ratio (6-22) Glucose (80-110) mg/dL Lactate 0.9 (0.7-2.1) mmol/L Calcium (8.4-10.2) mg/dL Total Bilirubin (0.2-1.3) mg/dL AST (17-59) IU/L ALT (<50) IU/L Alkaline Phosphatase (38-126) U/L Troponin I (0.01-0.034) ng/mL NT-Pro-B Natriuret Pep (<450) pg/mL Total Protein (6.3-8.2) g/dL Albumin (3.5-5.0) g/dL Globulin (1.7-4.1) g/dL Albumin/Globulin Ratio (1.0-2.8) Procalcitonin (<0.5) ng/mL Chlamy pneumoniae PCR (Not Detect) Adenovirus (PCR) (Not Detect) B. pertussis DNA (PCR) (Not Detecte) B.parapertussis DNA PCR (Not Detecte) Coronavirus OC43 (PCR) (Not Detect) Coronavirus HKU1 (PCR) (Not Detect) Coronavirus 229E (PCR) (Not Detect) SARS-CoV-2 (PCR) (Not Detecte) Coronavirus NL63 (PCR) (Not Detect) Human Metapneumovir PCR (Not Detect) Influenza Type A (PCR) (Not Detect) Influenza Type B (PCR) (Not Detect) M. pneumoniae (PCR) (Not Detect) Parainfluenza 1 (PCR) (Not Detect) Parainfluenza 2 (PCR) (Not Detect) Parainfluenza 3 (PCR) (Not Detect) Parainfluenza 4 (PCR) (Not Detect) RSV (PCR) (Not Detect) Entero/Rhino (PCR) (Not Detect) Imaging Data Chest x-ray: Radiologist's Impression: FINDINGS:? ? Surgical changes and devices:? Midline sternal wires mediastinal vascular clips present.? Lower cervical spine hardware.? No acute cardiopulmonary findings ? Lungs and pleura:? Lungs are clear.? No pleural effusions or pneumothorax.? ? Mediastinum:? Mediastinal contours appear normal.? Heart size is normal.? ? Bones and chest wall:? No suspicious bony lesions.? Overlying soft tissues appear unremarkable.? ? IMPRESSION:? No acute cardiopulmonary findings ? ? ? Approved by: Hugo Humphrey M.D. on 11/29/2021 at 16:02? ECG Data Interpretation: Sinus rhythm with marked sinus arrhythmia at a rate of 82 No acute ischemic changes MDM Narrative Medical decision making narrative: 76-year-old gentleman with significant COPD exacerbated by seasonal allergies and pollens are thick in the air this week. He has no evidence of infectious etiology within normal chest x-ray, normal white blood cell count, initial lactic acid was slightly elevated but came down to normal with no and intervention. Procalcitonin is equally normal. In light of all of this I have very clearly explained to him that antibiotics are not indicated nor going to help. He is clearly having a COPD exacerbation and does need additional steroids. In the emergency department he is given a partial L of normal saline, IV magnesium IV steroids and is feeling significantly better. He has also had multiple nebulizers. He is requesting albuterol to have at home as it seems to be working better and nebulized form than the lev albuterol that he does have available to him at home. He will also need a longer steroid taper and will need follow-up with his primary care provider before stopping his steroids to decide what the appropriate dose is going to be for him. He is requesting a small prescription of Percocet to help with the cough at nighttime. Negotiated a take-home pack only. In the emergency department his lowest saturation is at 90% on room air when he is up and moving around the room. Sitting and talking his saturations are in the 93-95% range on room air. Discharge Plan Departure Patient Disposition: Home Clinical Impression: COPD exacerbation Instructions: DI for Chronic Obstructive Pulmonary Disease Activity Restrictions/Additional Instructions: Thank you for coming in today As we discussed, your wheezing and cough is related to your COPD. I very much agree with you that your seasonal allergies are contributing and significantly exacerbating your COPD. Please continue all of your allergy medication. Please complete a prednisone taper beginning tomorrow consisting of 60 mg for 5 days, 40mg x 5 days 20mg x 5 days and then 10 mg x 4 days (total = 32 pills, 20mg size) You can use albuterol nebulizers up to every 4 hours as needed These prescriptions have been electronically transmitted to [facility] You can use 1 Percocet at night to help so pressure cough and help you sleep You do need to follow-up with your primary care physician the for the steroid course is completed to see what the recommendation are in terms of continuing the steroids. As we discussed, there is no clinical indication of bacterial infection and no indication for antibiotics. Similarly, there is no indication of congestive heart failure or heart attack or heart attack like syndrome. If you find that you are feeling worse, please feel free to return to the ER Prescriptions: New prednisone 20 mg tablet 20 mg PO DAILY Qty: 32 0RF Rx Instructions: 60mg x 5 day, 40mg x 5 day, 20mg x5 day, 10mg x 4 days albuterol sulfate 1.25 mg/3 mL solution for nebulization 2.5 mg inhalation QID Qty: 90 1RF No Action multivitamin [Multiple Vitamins] 1 EACH tablet 1 tab PO DAILY Qty: 0 0RF fluticasone propionate 16 GM spray,suspension 1 spray Intranasal DAILY PRN (Reason: Allergy Symptoms) Qty: 0 0RF ferrous sulfate 325 mg (65 mg iron) tablet,delayed release (DR/EC) 325 mg PO DAILY 0RF Label Comments: take 1 tablet by mouth once daily oxycodone 5 mg Tablet 10 mg PO Q4-5H PRN (Reason: Pain, Severe (7-10)) Qty: 60 0RF acetaminophen [Athenol] 325 mg tablet 650 mg PO Q6H PRN (Reason: pain) Qty: 60 0RF furosemide [Lasix] 40 mg tablet 40 mg PO DAILY 0RF glipizide [Glucotrol XL] 2.5 mg tablet extended release 24 hr 2.5 mg PO DAILY 0RF Label Comments: Spouse Cristel called & reported patient not taking it regularly. acetaminophen-codeine 300-30 mg tablet 1 tab PO Q6HR PRN (Reason: Back Pain) 0RF cefdinir 300 mg capsule 300 mg PO BID Qty: 20 0RF meclizine 25 mg tablet 25 mg PO QID PRN (Reason: vertigo) Qty: 30 0RF oxycodone-acetaminophen [Percocet] 5-325 mg tablet 1 tab PO TID PRN (Reason: pain) Qty: 10 0RF diclofenac sodium 1 % gel 2 g topical QID Qty: 100 0RF Rx Instructions: apply to single elbow, wrist or hand; for hand includes palm/fingers/back of hand prednisone 50 mg tablet 50 mg PO DAILY Qty: 5 0RF oxycodone-acetaminophen [Percocet] 5-325 mg tablet 1 tab PO Q8H PRN (Reason: pain) Qty: 10 0RF diclofenac sodium 1 % gel 2 g topical QID Qty: 100 0RF Rx Instructions: apply to single elbow, wrist or hand; for hand includes palm/fingers/back of hand methocarbamol 500 mg tablet 500 mg PO Q8H PRN (Reason: muscle spasm) Qty: 14 0RF trazodone 100 mg tablet 400 tab PO BEDTIME 0RF Label Comments: patient states weaning off. levalbuterol tartrate [Xopenex HFA] 45 mcg/actuation HFA aerosol inhaler 1 puff INHALATION Q4-6H PRN (Reason: shortness of breath or wheezing) Qty: 15 0RF metoprolol tartrate 100 mg tablet 100 mg PO BID 0RF Label Comments: take 1 tablet by mouth twice a day levalbuterol HCl 1.25 mg/3 mL solution for nebulization 3 ml Inhalation Q6H PRN (Reason: Shortness Of Breath) 0RF Label Comments: INHALE 1 VIAL PER NEBULIZER EVERY 6 HOURS NEEDED Zyrtec 10 mg Capsule 10 mg PO DAILY 0RF benzonatate [Tessalon Perles] 100 mg capsule 100 mg PO TID PRN (Reason: cough) Qty: 14 0RF Referrals: Romi Tavera MD [Primary Care Provider] -
[2021-11-29 17:37] LABS: Lactate 2HR (Lactic Acid Rflx) 0.9 mmol/L (0.7-2.1)
[2021-11-29 17:40] LABS: Adenovirus Not Detected (Not Detect); B. parapertussis Not Detected (Not Detecte); Bordetella pertussis Not Detected (Not Detecte); Chlamydophila pneumoniae Not Detected (Not Detect); Coronavirus 229E Not Detected (Not Detect); Coronavirus HKU1 Not Detected (Not Detect); Coronavirus NL 63 Not Detected (Not Detect); Coronavirus OC43 Not Detected (Not Detect); Human Metapneumovirus Not Detected (Not Detect); Human Rhinovirus/Enterovirus Not Detected (Not Detect); Influenza A Not Detected (Not Detect); Influenza B Not Detected (Not Detect); Mycoplasma pneumoniae Not Detected (Not Detect); Parainfluenza Virus 1 Not Detected (Not Detect); Parainfluenza Virus 2 Not Detected (Not Detect); Parainfluenza Virus 3 Not Detected (Not Detect); Parainfluenza Virus 4 Not Detected (Not Detect); Respiratory Syncytial Virus Not Detected (Not Detect); SARS- CoV-2 Not Detected (Not Detecte)
[2021-11-29] MEDS: SODIUM CHLORIDE 0.9% 1,000 ML 1000 ML IV ×2 (18:04→18:08)
[2021-11-29] MEDS: MAGNESIUM SULFATE 2 GM/50 ML PIGGYBACK IV (18:09)
[2021-11-29] MEDS: methylPREDNISolone 125 MG/2 ML VIAL IV (18:10)
[2021-11-29] MEDS: KETOROLAC 30 MG/ML VIAL 15 MG IV (18:55)
[2021-11-29] MEDS: OXYCODONE/APAP 5/325 PREPACK 1 BOTTLE MISC (19:02)
== END 2021-11-29 19:14 | disposition home or self-care (01) ==
PROVIDERS: Nurse Practitioner Critical Care Medicine; Emergency Provider Emergency Medicine; PCP Internal Medicine
DX: J44.1 Chronic obstructive pulmonary disease with (acute) exacerbation (principal); Z87.891 Personal history of nicotine dependence; Z20.822 Contact with and (suspected) exposure to COVID-19
CPT/HCPCS: 36415; 71045; 80053; 83605; 83880; 84145; 84484; 85025; 85379; 87633; 93005; 94640; 96365; 96375; 99284; J1885; J2930; J3475; J7613

== ENCOUNTER 2021-12-08 20:20 | Inpatient (IN) | payer OTHER, SELFPAY ==
[2021-10-09 01:09] VITALS: BMI 30.2
[2021-12-08 20:23] VITALS: BP 159/98; PULSE 88; RESP 22; TEMP 36.3; O2SAT 92
--- NOTE | 2021-12-08 20:28 | DI.CT.S_ITS ---
PROCEDURE: CT CERVICAL SPINE WO CON INDICATIONS: trauma TECHNIQUE: Noncontrast 3 mm thick sections acquired from the skull base to the T4 level. Sagittal and coronal reformats were then constructed. For radiation dose reduction, the following was used: automated exposure control, adjustment of mA and/or kV according to patient size. COMPARISON: [facility], CT, CT CERVICAL SPINE WO CON, 04/17/2021, 12:21. FINDINGS: Image quality: There is motion artifact limiting evaluation. Bones: No fractures or subluxation. There is anterolisthesis at C2-C3 measuring approximately 0.4 cm and minimal anterolisthesis at C3-C4 measuring approximately 0.2 cm. Minimal anterolisthesis also demonstrated at T1-T2. Findings are similar to the prior study. There are postsurgical changes also redemonstrated status post prior ACDF at C4-C5 and C7-T1. There is also fusion at C5-C6 and C6-C7. There is mild to moderate degenerative disc disease within the visualized upper thoracic spine. Mild disc degeneration also demonstrated at C2-C3 and C3-C4. There is multilevel moderate facet arthropathy throughout the cervical spine. Visualized superior ribs are intact. Soft tissues: Prevertebral soft tissues are normal in thickness. No paravertebral hematomas. No apical pneumothoraces. IMPRESSION: 1. No acute fracture or subluxation. 2. Postsurgical changes redemonstrated throughout the cervical spine with fusion of multiple levels as described. Dictated by: Chapincito Rodriguez M.D. on 12/08/2021 at 21:44 Approved by: Chapincito Rodriguez M.D. on 12/08/2021 at 21:48
--- NOTE | 2021-12-08 20:28 | DI.CT.S_ITS ---
PROCEDURE: CT HEAD/BRAIN WO CON INDICATIONS: trauma TECHNIQUE: Noncontrast 4.5 mm thick angled axial sections acquired from the foramen magnum to the vertex, with coronal and sagittal reformats. For radiation dose reduction, the following was used: automated exposure control, adjustment of mA and/or kV according to patient size. COMPARISON: [facility], CT, CT HEAD/BRAIN WO CON, 04/17/2021, 12:21. FINDINGS: Image quality: Excellent. CSF spaces: Basal cisterns are patent. The ventricles are symmetric in size and shape. There is mild cerebral volume loss, with resultant ventricular and sulcal prominence. There is a small right choroidal fissure cyst redemonstrated. Brain: No intracranial hemorrhage, mass, or mass effect. The richardson-white matter junction appears preserved. There is intracranial internal carotid artery atherosclerosis. Skull and face: Calvarium and visualized facial bones appear intact, without suspicious lesions. Sinuses: Visualized sinuses redemonstrate wall thickening and mucoperiosteal thickening within the visualized left maxillary sinus suggesting sequelae of chronic sinusitis. The mastoid air cells are clear. IMPRESSION: 1. No acute intracranial abnormality. 2. Bony remodeling in the left maxillary sinus redemonstrated consistent with sequelae of chronic sinusitis. 3. Mild cerebral volume loss. Dictated by: Chapincito Rodriguez M.D. on 12/08/2021 at 21:42 Approved by: Chapincito Rodriguez M.D. on 12/08/2021 at 21:44
[2021-12-08 20:33] VITALS: BP 127/66; PULSE 71
[2021-12-08 20:45] VITALS: PULSE 78
[2021-12-08 21:00] VITALS: BP 137/78
--- NOTE | 2021-12-08 22:30 | PC.NURSE ---
attempted to have pt stand and walk, pt unable to stand assisted pt back to stretcher, pt stated that the reason why he bought a pint of whiskey today was to numb the pain in his back as the pain becomes so bad he can not even stand
[2021-12-08 23:17] VITALS: PULSE 85; O2SAT 91
[2021-12-08 23:20] LABS: Add Manual Diff / Slide Review NO; Basophils Absolute Auto 100 /uL (0-100); Basophils Percent Auto 0.8 % (0-2); Eosinophils Absolute Auto 100 /uL (0-450); Hemoglobin 15.6 g/dL (13.5-17.5); Lymphocytes Absolute Auto 1700 /uL (1100-4500); Mean Corpuscular Hemoglobin 31.7 PG (26-34); Mean Corpuscular Volume 93.3 fL (80-100); Monocytes Absolute Auto 700 /uL (0-900); Monocytes Percent Auto 9.5 % (3-14); Neutrophils Absolute Auto 4800 /uL (1500-7000); Neutrophils Percent Auto 64.7 % (50-75); Platelet Count 241 X10^3/uL (150-400); Red Blood Cell Count 4.93 X10^6/uL (4.5-5.9); Red Cell Distribution Width 13.7 % (11.6-14.8); White Blood Cell Count 7.4 X10^3/uL (4.5-11.0)
[2021-12-08] MEDS: SODIUM CHLORIDE 0.9% 1,000 ML 150 ML IV (23:25)
[2021-12-08 23:31] LABS: Lactate (Lactic Acid) 2.3 mmol/L (0.7-2.1)
[2021-12-08 23:32] LABS: Acetaminophen < 10 ug/mL (10-30); Alanine Aminotransferase 31 IU/L (<50); Albumin 4.1 g/dL (3.5-5.0); Albumin Globulin Ratio 1.4 (1.0-2.8); Alkaline Phosphatase 64 U/L (38-126); Aspartate Aminotransferase 32 IU/L (17-59); BUN Creatinine Ratio 23.9 (6-22); Bilirubin Total 0.9 mg/dL (0.2-1.3); Blood Urea Nitrogen 21 mg/dL (9-20); Calcium 8.4 mg/dL (8.4-10.2); Carbon Dioxide 27 mmol/L (22-32); Chloride 104 mmol/L (98-107); Estimated Glomerular Filt Rate > 60 mL/min (>60); Ethanol (ETOH) 111 mg/dL; Globulin 2.9 g/dL (1.7-4.1); Glucose 124 mg/dL (80-110); HEMOLYSIS 18 (0-50); Potassium 4.5 mmol/L (3.4-5.1); Salicylate < 1.0 mg/dL (<20); Sodium 140 mmol/L (137-145)
[2021-12-08 23:48] LABS: Prolactin 18.9 ng/mL (3.7-17.9)
[2021-12-09] VITALS (38 sets, daily range): BP systolic 133–228; BP diastolic 53–109; PULSE 63–101; RESP 16–30; TEMP 36.1–36.8; O2SAT 92–99; BMI 25.0
[2021-12-09] LABS: COVID19 -Nasal RAPID Negative (Negative)
[2021-12-09 00:03] LABS: Thyroid Stimulating Hormone 2.07 uIU/mL (0.47-4.68)
[2021-12-09 00:31] LABS: Appearance Urine UA CLEAR; Bilirubin Urine UA NEGATIVE (NEGATIVE); Color Urine UA YELLOW; Glucose Urine UA NEGATIVE (Negative); Ketones Urine UA TRACE (NEGATIVE); Leukocyte Esterase Urine UA NEGATIVE (NEGATIVE); Nitrite Urine UA NEGATIVE (Negative); Occult Blood Urine UA NEGATIVE (Negative); Protein Urine UA NEGATIVE (Negative); Urobilinogen Urine UA 0.2 E.U./dL (0.2)
[2021-12-09 00:35] LABS: UR Morphine/Opiate cutoff 300 Positive (Negative); Ur Creatinine Normal (Normal); Ur Specific Gravity Normal (Normal); Urine Amphetamines Negative (Negative); Urine Barbiturates Negative (Negative); Urine Benzodiazepines Positive (Negative); Urine Cocaine Negative (Negative); Urine MDMA Negative (Negative); Urine Methadone Negative (Negative); Urine Methamphetamines Negative (Negative); Urine Oxycodone Negative (Negative); Urine Phencyclidine Negative (Negative); Urine Tetrahydrocannabinol Negative (Negative); Urine Tricyclic Antidepressant Negative (Negative); Urine pH Normal (Normal)
[2021-12-09 00:42] LABS: Bacteria Urine None Seen; Squamous Epithelial Cell Urine 0-1 /HPF (0-5/HPF)
[2021-12-09 00:43] LABS: Culture Indicated Urine Cult Not Indicated; RBC Urine None Seen (0-5/HPF); WBC Urine None Seen (0-5/HPF)
[2021-12-09 01:16] LABS: Reflexed Lactate in 2 Hours Y
--- NOTE | 2021-12-09 01:22 | ED.FALL ---
HPI - Fall <Allan Kaye, DO - Last Filed: 12/12/21 07:40> General Chief Complaint: Trauma Stated Complaint: Back Pain Time Seen by Provider: 12/08/21 20:22 Source: patient, family and EMS Mode of arrival: EMS History of Present Illness HPI Narrative: 76-year-old male former smoker with heavy alcohol abuse today and history of chronic back pain, ataxia, AFib, COPD presents for evaluation of a witnessed ground level fall. He stumbled and fell forward, striking his nose. There was no loss of consciousness and he has had no nausea or vomiting. He denies any other injuries such as neck, back or extremities. His states that he consumed a large amount of alcohol tonight in addition to many other medications that he would routinely take. He is activated as a modified trauma. Related Data Home Medications Medication Instructions Recorded Confirmed multivitamin (Multiple Vitamins) 1 tab PO DAILY ##0 12/21/16 10/09/21 fluticasone propionate 50 1 spray intranasal DAILY PRN 11/03/17 10/09/21 mcg/actuation nasal Allergy Symptoms ##0 spray,suspension levalbuterol HCl 1.25 mg/3 mL 3 ml inhalation Q6H PRN Shortness 10/17/18 10/09/21 solution for nebulization Of Breath metoprolol tartrate 100 mg tablet 100 mg PO DAILY 10/17/18 10/09/21 cetirizine 10 mg capsule (Zyrtec) 10 mg PO DAILY 05/23/19 10/09/21 ferrous sulfate 325 mg (65 mg 325 mg PO DAILY 10/20/19 10/09/21 iron) tablet,delayed release furosemide 40 mg tablet (Lasix) 40 mg PO DAILY 10/09/21 10/09/21 glipizide 2.5 mg tablet, extended 2.5 mg PO DAILY 10/09/21 10/09/21 release 24 hr (Glucotrol XL) clonidine HCl 0.1 mg tablet 0.2 mg PO TID 12/09/21 12/09/21 lisinopril 10 mg tablet 10 mg PO DAILY 12/09/21 12/09/21 Previous Rx's Medication Instructions Recorded levalbuterol tartrate 45 1 puff inhalation Q4-6H PRN 06/23/18 mcg/actuation aerosol inhaler shortness of breath or wheezing (Xopenex HFA) #15 grams acetaminophen 325 mg tablet 650 mg PO Q6H PRN pain #60 tabs 11/07/20 (Athenol) benzonatate 100 mg capsule 100 mg PO TID PRN cough #14 caps 03/06/21 (Tessalon Perles) meclizine 25 mg tablet 25 mg PO QID PRN vertigo #30 tabs 10/10/21 diclofenac sodium 1 % topical gel 2 g topical QID back pain #100 11/20/21 grams diclofenac sodium 1 % topical gel 2 g topical QID back pain #100 11/20/21 grams methocarbamol 500 mg tablet 500 mg PO Q8H PRN muscle spasm #14 11/20/21 tabs albuterol sulfate 1.25 mg/3 mL 2.5 mg (6 mL) inhalation QID #90 mL 11/29/21 solution for nebulization oxycodone 5 mg tablet 10 mg PO Q4-5H PRN Pain, Severe 12/11/21 (7-10) 7 days #60 tabs trazodone 100 mg tablet 400 tab PO BEDTIME 30 days #120 12/11/21 tabs Allergies Allergy/AdvReac Type Severity Reaction Status Date / Time celecoxib [CELECOXIB] Allergy Mild SWELLING Verified 11/29/21 15:33 latex [LATEX] Allergy Mild RASH Verified 11/29/21 15:33 W/EXTENDED EXPOSURE Sulfa (Sulfonamide Allergy Mild RASH Verified 11/29/21 15:33 Antibiotics) [SULFA (SULFONAMIDE ANTIBIOTICS)] varenicline [VARENICLINE] AdvReac Severe Paranoia Verified 11/29/21 15:33 buprenorphine [BUPRENORPHINE] AdvReac Mild NAUSEA, Verified 11/29/21 15:33 DIZZINESS hyoscyamine [HYOSCYAMINE] AdvReac Mild LEG Verified 11/29/21 15:33 JERKING, ANXIETY, NAUSEA W/I MINUTES [id number] Reductase AdvReac Mild WEAK Verified 11/29/21 15:33 Inhibitor MUSCLES [[id number] REDUCTASE INHIBITOR] diazepam [From Valium] AdvReac Confusion Verified 11/29/21 15:33 Review of Systems <Allan Kaye DO - Last Filed: 12/12/21 07:40> Review of Systems Narrative: GENERAL: Denies chills, fatigue, malaise, fever, sweats. HEENT: See HPI RESPIRATORY: Denies dyspnea, cough, wheezing, hemoptysis, sputum. CARDIOVASCULAR: Denies chest pain, palpitations, orthopnea, edema, GASTROINTESTINAL: Denies nausea, vomiting, abdominal pain, diarrhea, constipation, melena. : Denies dysuria, frequency, incontinence, hematuria, urinary retention. MUSCULOSKELETAL: See HPI SKIN: Denies rash, skin lesions, or other NEUROLOGIC: Denies weakness, headache, numbness, change in speech, confusion, seizures, incoordination. PSYCHIATRIC: No concerning psychosocial issues. 12 point review of systems is negative except for those stated above Patient History <Allan Kaye DO - Last Filed: 12/12/21 07:40> Medical History Achalasia Anginal pain Asthma Atrial fibrillation Cervical spinal stenosis Chronic obstructive pulmonary disease (10/23/16) COPD (chronic obstructive pulmonary disease) Coronary artery disease History of aortic dissection (~08/2007) Hypertension Ischemic cardiomyopathy Narcotic dependence Neck pain, chronic Ventricular bigeminy Surgical History H/O arthroscopic knee surgery (11/15/17) History of arthroplasty of right knee History of bilateral total hip arthroplasty History of cardiac cath (~03/2014) History of esophageal surgery History of incision and drainage (~2016) History of prior ablation treatment (~03/2017) History of surgery Hx of cholecystectomy Hx of hernia repair Hx of sinus surgery S/P CABG x 3 (~08/2007) S/P cervical spinal fusion S/P lumbar fusion Family History (Updated 12/09/21 @ 13:50 by Rayo Sage DO) Mother Stroke Father Hypertension Social History household members: spouse Smoking Status: Former smoker alcohol intake: current substance use type: does not use Smoking Status: Former smoker alcohol intake frequency: holidays/special occasions only Substance Use Type: does not use Exam <Allan Kaye DO - Last Filed: 12/12/21 07:40> Narrative Exam Narrative: GENERAL: [76 year old patient appears stated age. Well-developed patient, in mild distress. GCS 15, smells of alcohol and slurring his words HEAD: Superficial abrasion on the bridge of his nose, no other obvious contusion, laceration, hematoma or evidence of depressed skull fracture EYES: Pupils equal round and reactive. No hyphema Extraocular motions intact. No scleral icterus. No injection or drainage. ENT: Nose without bleeding, purulent drainage. No nasal septal hematoma Throat without erythema, tonsillar hypertrophy or exudate. Airway patent. NECK: Trachea midline. Non tender CARDIOVASCULAR: Regular rate and rhythm without murmurs, gallops, or rubs. RESPIRATORY: Clear to auscultation. Breath sounds equal bilaterally. No wheezes, rales, or rhonchi. GASTROINTESTINAL: Abdomen soft, non-tender, nondistended. EXTREMITIES: No edema or joint tenderness. BACK: Nontender without deformity or crepitance. No flank tenderness. NEURO: Cranial nerves 2-12 grossly intact SKIN: No rash or erythema of visible areas Initial Vital Signs Initial Vital Signs: Vital Signs Temperature 97.4 F L 12/08/21 20:23 Pulse Rate 88 12/08/21 20:23 Respiratory Rate 22 12/08/21 20:23 Blood Pressure 159/98 H 12/08/21 20:23 Pulse Oximetry 92 12/08/21 20:23 Oxygen Delivery Method 12/08/21 20:23 <Beny Gutierrez MD - Last Filed: 01/16/22 01:21> Initial Vital Signs Initial Vital Signs: Vital Signs Temperature 97.4 F L 12/08/21 20:23 Pulse Rate 88 12/08/21 20:23 Respiratory Rate 22 12/08/21 20:23 Blood Pressure 159/98 H 12/08/21 20:23 Pulse Oximetry 92 12/08/21 20:23 Oxygen Delivery Method 12/08/21 20:23 Course <Allan Kaye DO - Last Filed: 12/12/21 07:40> Orders Ordered: Discontinued Medications Acetaminophen (Acetaminophen 325 Mg Tablet) 975 mg PO Q8HR PRN PRN Reason: Pain, Mild (1-3) Last Admin: 12/10/21 21:47 Dose: 975 mg Documented By: JEAN-CLAUDE Admin: 12/10/21 11:59 Dose: 975 mg Documented By: Admin: 12/10/21 03:59 Dose: 975 mg Documented By: Admin: 12/09/21 13:01 Dose: 975 mg Documented By: CORAZON Acetaminophen/Codeine Phosphate (Codeine/Acetaminophen 30/300 Tablet) 1 tab PO NOW ONE Stop: 12/09/21 01:26 Last Admin: 12/09/21 01:35 Dose: 1 tab Documented By: DALY Albuterol (Albuterol 2.5 Mg/3 Ml Neb (Adult)) 2.5 mg INH NOW ONE Stop: 12/09/21 07:16 Last Admin: 12/09/21 07:17 Dose: 2.5 mg Documented By: JOHNNY Albuterol (Albuterol 2.5 Mg/3 Ml Neb (Adult)) 2.5 mg INH [id number] PRN PRN Reason: Shortness Of Breath Last Admin: 12/10/21 13:46 Dose: 2.5 mg Documented By: Admin: 12/10/21 04:10 Dose: 2.5 mg Documented By: Admin: 12/09/21 19:45 Dose: 2.5 mg Documented By: Admin: 12/09/21 16:40 Dose: 2.5 mg Documented By: LETTY Chlordiazepoxide HCl (Chlordiazepoxide 25 Mg Capsule) 25 mg PO TID [facility] [place] Last Admin: 12/11/21 09:44 Dose: 25 mg Documented By: Admin: 12/10/21 21:26 Dose: 25 mg Documented By: JEAN-CLAUDE Admin: 12/10/21 17:57 Dose: Not Given Documented By: Admin: 12/10/21 10:42 Dose: 25 mg Documented By: Admin: 12/09/21 22:37 Dose: 25 mg Documented By: FATOUMATA Enoxaparin Sodium (Enoxaparin 40 Mg/0.4 Ml Syringe) 40 mg SUBCUT DAILY [facility] [place] Last Admin: 12/11/21 09:45 Dose: Not Given Documented By: Admin: 12/10/21 10:52 Dose: Not Given Documented By: JENNY Folic Acid (Folic Acid 1 Mg Tablet) 1 mg PO DAILY [facility] [place] Last Admin: 12/11/21 09:44 Dose: 1 mg Documented By: Admin: 12/10/21 12:13 Dose: 1 mg Documented By: JENNY Furosemide (Furosemide 40 Mg Tablet) 40 mg PO DAILY [facility] [place] Last Admin: 12/11/21 09:45 Dose: 40 mg Documented By: Admin: 12/10/21 10:03 Dose: 40 mg Documented By: JENNY Hydralazine HCl (Hydralazine 20 Mg/Ml Vial) 10 mg IV NOW ONE Stop: 12/09/21 07:12 Last Admin: 12/09/21 07:16 Dose: 10 mg Documented By: RITIKA Hydromorphone HCl (Hydromorphone 0.5 Mg Inj) 0.5 mg IV NOW ONE Stop: 12/09/21 04:01 Last Admin: 12/09/21 04:04 Dose: 0.5 mg Documented By: DALY Sodium Chloride (Normal Saline 0.9%) 1,000 mls @ 150 mls/hr IV CONT [facility] Stop: 12/09/21 11:41 Last Infusion: 12/09/21 04:00 Dose: 0 mls/hr Documented By: Admin: 12/08/21 23:25 Dose: 150 mls/hr Documented By: CHEO Lisinopril (Lisinopril 20 Mg Tablet) 20 mg PO NOW ONE Stop: 12/09/21 06:31 Last Admin: 12/09/21 06:42 Dose: 20 mg Documented By: RITIKA Lisinopril (Lisinopril 10 Mg Tablet) 10 mg PO DAILY [facility] [place] Last Admin: 12/11/21 09:44 Dose: 10 mg Documented By: Admin: 12/10/21 10:03 Dose: Not Given Documented By: JENNY Lorazepam (Lorazepam 2 Mg/Ml Inj) 1 mg IV NOW ONE Stop: 12/09/21 08:05 Last Admin: 12/09/21 08:12 Dose: 0.5 mg Documented By: COY Lorazepam (Lorazepam 2 Mg/Ml Inj) 2 mg IV NOW ONE Stop: 12/09/21 09:54 Last Admin: 12/09/21 10:03 Dose: 2 mg Documented By: COY Lorazepam (Lorazepam 2 Mg/Ml Inj) 0 mg IV CIWAPRN PRN; Protocol PRN Reason: Alcohol Withdrawal Last Admin: 12/11/21 04:12 Dose: 2 mg Documented By: JEAN-CLAUDE Admin: 12/10/21 23:27 Dose: 2 mg Documented By: JEAN-CLAUDE Admin: 12/10/21 22:18 Dose: 2 mg Documented By: JEAN-CLAUDE Admin: 12/10/21 21:55 Dose: 2 mg Documented By: JEAN-CLAUDE Admin: 12/10/21 19:11 Dose: 2 mg Documented By: Admin: 12/10/21 16:40 Dose: 2 mg Documented By: Admin: 12/10/21 11:41 Dose: 1 mg Documented By: Admin: 12/10/21 07:39 Dose: 2 mg Documented By: Admin: 12/09/21 21:24 Dose: 2 mg Documented By: Admin: 12/09/21 19:42 Dose: 2 mg Documented By: Admin: 12/09/21 17:31 Dose: 2 mg Documented By: CORAZON Lorazepam (Lorazepam 1 Mg Tablet) 0 mg PO CIWAPRN PRN; Protocol PRN Reason: Alcohol Withdrawal Last Admin: 12/10/21 16:00 Dose: 2 mg Documented By: Admin: 12/09/21 22:33 Dose: 2 mg Documented By: FATOUMATA Methocarbamol (Methocarbamol 500 Mg Tablet) 500 mg PO TID PRN PRN Reason: Muscle Spasm Last Admin: 12/11/21 06:26 Dose: 500 mg Documented By: JEAN-CLAUDE Admin: 12/10/21 23:21 Dose: 500 mg Documented By: JEAN-CLAUDE Admin: 12/10/21 11:59 Dose: 500 mg Documented By: Admin: 12/09/21 22:38 Dose: 500 mg Documented By: FATOUMATA Metoprolol Succinate (Metoprolol Er 50 Mg Tablet) 100 mg PO DAILY [facility] [place] Last Admin: 12/11/21 09:44 Dose: 100 mg Documented By: Admin: 12/10/21 11:44 Dose: Not Given Documented By: Admin: 12/09/21 15:00 Dose: 100 mg Documented By: CORAZON Metoprolol Tartrate (Metoprolol Ir 25 Mg Tablet) 100 mg PO NOW ONE Stop: 12/09/21 06:31 Last Admin: 12/09/21 06:47 Dose: Not Given Documented By: RITIKA Multivitamins (Multivitamin 1 Tablet) 1 tab PO DAILY [facility] [place] Last Admin: 12/11/21 09:44 Dose: 1 tab Documented By: Admin: 12/10/21 11:43 Dose: 1 tab Documented By: JENNY Naloxone HCl (Naloxone 0.4 Mg/Ml Vial) 0.2 mg IV Q2MIN PRN PRN Reason: Opiate Reversal Ondansetron HCl (Ondansetron 4 Mg/2 Ml Inj) 4 mg IV NOW ONE Stop: 12/09/21 02:32 Last Admin: 12/09/21 02:34 Dose: 4 mg Documented By: DALY Ondansetron HCl (Ondansetron 4 Mg/2 Ml Inj) 4 mg IV NOW ONE Stop: 12/09/21 05:50 Last Admin: 12/09/21 05:53 Dose: 4 mg Documented By: RITIKA Ondansetron HCl (Ondansetron 4 Mg/2 Ml Inj) 4 mg IV Q4HR PRN PRN Reason: Nausea And Vomiting Last Admin: 12/10/21 16:24 Dose: 4 mg Documented By: JENNY Oxycodone HCl (Oxycodone Ir 5 Mg Tablet) 5 mg PO Q4HR PRN PRN Reason: Pain, Severe (7-10) Last Admin: 12/09/21 13:01 Dose: 5 mg Documented By: CORAZON Oxycodone HCl (Oxycodone Ir 10 Mg Tablet) 10 mg PO Q6HR PRN PRN Reason: Pain, Severe (7-10) Last Admin: 12/11/21 03:58 Dose: 10 mg Documented By: JEAN-CLAUDE Admin: 12/10/21 21:27 Dose: 10 mg Documented By: JEAN-CLAUDE Admin: 12/10/21 06:58 Dose: 10 mg Documented By: Admin: 12/10/21 00:04 Dose: 10 mg Documented By: Admin: 12/09/21 15:00 Dose: 10 mg Documented By: CORAZON Oxycodone HCl (Oxycodone Ir 5 Mg Tablet) 5 mg PO Q4HR PRN PRN Reason: Pain, Moderate (4-6) Last Admin: 12/10/21 10:01 Dose: 5 mg Documented By: JENNY Oxycodone/Acetaminophen (Oxycodone/Acetaminophen 5/325 Tablet) 1 tab PO NOW ONE Stop: 12/09/21 10:39 Last Admin: 12/09/21 10:42 Dose: 1 tab Documented By: COY(2) Pantoprazole Sodium (Pantoprazole 40 Mg Vial) 40 mg IV NOW ONE Stop: 12/09/21 05:47 Last Admin: 12/09/21 05:53 Dose: 40 mg Documented By: RITIKA Phenobarbital (Phenobarbital 65 Mg/Ml Vial) 260 mg IV NOW ONE Stop: 12/09/21 06:04 Last Admin: 12/09/21 06:11 Dose: 260 mg Documented By: DALY Phenobarbital (Phenobarbital 65 Mg/Ml Vial) 65 mg IV NOW ONE Stop: 12/10/21 17:46 Last Admin: 12/10/21 18:11 Dose: 65 mg Documented By: JENNY Phenobarbital (Phenobarbital 65 Mg/Ml Vial) 65 mg IV NOW ONE Stop: 12/10/21 19:08 Last Admin: 12/10/21 19:56 Dose: 65 mg Documented By: JEAN-CLAUDE Sodium Chloride (Sodium Chloride 0.9% Flush) 10 ml IV PRN PRN PRN Reason: Flush Last Admin: 12/09/21 21:24 Dose: 10 ml Documented By: Admin: 12/09/21 21:20 Dose: 10 ml Documented By: FATOUMATA Sodium Chloride (Sodium Chloride 0.9% Flush) 10 ml IV BID [facility] [place] Last Admin: 12/11/21 09:50 Dose: Not Given Documented By: Admin: 12/10/21 20:59 Dose: 10 ml Documented By: JEAN-CLAUDE Admin: 12/10/21 11:54 Dose: Not Given Documented By: Admin: 12/09/21 19:42 Dose: 10 ml Documented By: FATOUMATA Thiamine HCl (Thiamine 100 Mg Tablet) 100 mg PO DAILY [facility] Stop: 12/12/21 09:01 Last Admin: 12/11/21 09:44 Dose: 100 mg Documented By: Admin: 12/10/21 12:14 Dose: Not Given Documented By: Admin: 12/09/21 13:19 Dose: 100 mg Documented By: CORAZON Trazodone HCl (Trazodone 100 Mg Tablet) 300 mg PO BEDTIME [facility] [place] Last Admin: 12/10/21 21:27 Dose: 300 mg Documented By: JEAN-CLAUDE Admin: 12/09/21 21:20 Dose: 300 mg Documented By: FATOUMATA Trazodone HCl (Trazodone 100 Mg Tablet) 100 mg PO BEDTIME PRN PRN Reason: insomnia Reevaluation(s) Reevaluation #1: Patient observed for some time before labs added. He has continued to have a difficult time ambulating and is unsafe to discharge at this time. His has been contacted and she will be able to come pick him up in the morning. Reevaluation #2: Patient getting shaky, sweaty, tachycardic, HTN, sweaty, and developing N/V/D. Strong concern that he is developing withdrawals though he denies frequent drinking. Phenobarb ordered and moved to room with monitor Time: 06:09 Vital Signs Vital signs: Vital Signs - 8 hr 12/09/21 05:35 12/09/21 05:37 12/09/21 06:32 Temperature 97.8 F Pulse Rate 67 66 Respiratory Rate 17 19 Blood Pressure 207/103 H 207/103 H Pulse Oximetry 96 93 12/09/21 06:33 12/09/21 07:00 12/09/21 07:18 Temperature Pulse Rate 64 68 69 Respiratory Rate 18 18 20 Blood Pressure 194/102 H 228/109 H Pulse Oximetry 92 96 <Beny Gutierrez MD - Last Filed: 01/16/22 01:21> Course Course Narrative: 7:00 a.m. s/o from dr kaye, patient will need admission for intractable vomiting/hypertension/dizziness. He has spoken with and patient and they agree for admit. At this time nighttime hospitalist is aware and signing out to daytime hospitalist to accept patient. Orders Ordered: Discontinued Medications Acetaminophen (Acetaminophen 325 Mg Tablet) 975 mg PO Q8HR PRN PRN Reason: Pain, Mild (1-3) Last Admin: 12/10/21 21:47 Dose: 975 mg Documented By: JEAN-CLAUDE Admin: 12/10/21 11:59 Dose: 975 mg Documented By: Admin: 12/10/21 03:59 Dose: 975 mg Documented By: Admin: 12/09/21 13:01 Dose: 975 mg Documented By: CORAZON Acetaminophen/Codeine Phosphate (Codeine/Acetaminophen 30/300 Tablet) 1 tab PO NOW ONE Stop: 12/09/21 01:26 Last Admin: 12/09/21 01:35 Dose: 1 tab Documented By: DALY Albuterol (Albuterol 2.5 Mg/3 Ml Neb (Adult)) 2.5 mg INH NOW ONE Stop: 12/09/21 07:16 Last Admin: 12/09/21 07:17 Dose: 2.5 mg Documented By: JOHNNY Albuterol (Albuterol 2.5 Mg/3 Ml Neb (Adult)) 2.5 mg INH [id number] PRN PRN Reason: Shortness Of Breath Last Admin: 12/10/21 13:46 Dose: 2.5 mg Documented By: Admin: 12/10/21 04:10 Dose: 2.5 mg Documented By: Admin: 12/09/21 19:45 Dose: 2.5 mg Documented By: Admin: 12/09/21 16:40 Dose: 2.5 mg Documented By: LETTY Chlordiazepoxide HCl (Chlordiazepoxide 25 Mg Capsule) 25 mg PO TID [facility] [place] Last Admin: 12/11/21 09:44 Dose: 25 mg Documented By: Admin: 12/10/21 21:26 Dose: 25 mg Documented By: JEAN-CLAUDE Admin: 12/10/21 17:57 Dose: Not Given Documented By: Admin: 12/10/21 10:42 Dose: 25 mg Documented By: Admin: 12/09/21 22:37 Dose: 25 mg Documented By: FATOUMATA Enoxaparin Sodium (Enoxaparin 40 Mg/0.4 Ml Syringe) 40 mg SUBCUT DAILY [facility] [place] Last Admin: 12/11/21 09:45 Dose: Not Given Documented By: Admin: 12/10/21 10:52 Dose: Not Given Documented By: JENNY Folic Acid (Folic Acid 1 Mg Tablet) 1 mg PO DAILY [facility] [place] Last Admin: 12/11/21 09:44 Dose: 1 mg Documented By: Admin: 12/10/21 12:13 Dose: 1 mg Documented By: JENNY Furosemide (Furosemide 40 Mg Tablet) 40 mg PO DAILY [facility] [place] Last Admin: 12/11/21 09:45 Dose: 40 mg Documented By: Admin: 12/10/21 10:03 Dose: 40 mg Documented By: JENNY Hydralazine HCl (Hydralazine 20 Mg/Ml Vial) 10 mg IV NOW ONE Stop: 12/09/21 07:12 Last Admin: 12/09/21 07:16 Dose: 10 mg Documented By: RITIKA Hydromorphone HCl (Hydromorphone 0.5 Mg Inj) 0.5 mg IV NOW ONE Stop: 12/09/21 04:01 Last Admin: 12/09/21 04:04 Dose: 0.5 mg Documented By: DALY Sodium Chloride (Normal Saline 0.9%) 1,000 mls @ 150 mls/hr IV CONT [facility] [place] Stop: 12/09/21 11:41 Last Infusion: 12/09/21 04:00 Dose: 0 mls/hr Documented By: Admin: 12/08/21 23:25 Dose: 150 mls/hr Documented By: CHEO Lisinopril (Lisinopril 20 Mg Tablet) 20 mg PO NOW ONE Stop: 12/09/21 06:31 Last Admin: 12/09/21 06:42 Dose: 20 mg Documented By: RITIKA Lisinopril (Lisinopril 10 Mg Tablet) 10 mg PO DAILY [facility] Last Admin: 12/11/21 09:44 Dose: 10 mg Documented By: Admin: 12/10/21 10:03 Dose: Not Given Documented By: JENNY Lorazepam (Lorazepam 2 Mg/Ml Inj) 1 mg IV NOW ONE Stop: 12/09/21 08:05 Last Admin: 12/09/21 08:12 Dose: 0.5 mg Documented By: COY Lorazepam (Lorazepam 2 Mg/Ml Inj) 2 mg IV NOW ONE Stop: 12/09/21 09:54 Last Admin: 12/09/21 10:03 Dose: 2 mg Documented By: COY Lorazepam (Lorazepam 2 Mg/Ml Inj) 0 mg IV CIWAPRN PRN; Protocol PRN Reason: Alcohol Withdrawal Last Admin: 12/11/21 04:12 Dose: 2 mg Documented By: JEAN-CLAUDE Admin: 12/10/21 23:27 Dose: 2 mg Documented By: JEAN-CLAUDE Admin: 12/10/21 22:18 Dose: 2 mg Documented By: JEAN-CLAUDE Admin: 12/10/21 21:55 Dose: 2 mg Documented By: JEAN-CLAUDE Admin: 12/10/21 19:11 Dose: 2 mg Documented By: Admin: 12/10/21 16:40 Dose: 2 mg Documented By: Admin: 12/10/21 11:41 Dose: 1 mg Documented By: Admin: 12/10/21 07:39 Dose: 2 mg Documented By: Admin: 12/09/21 21:24 Dose: 2 mg Documented By: Admin: 12/09/21 19:42 Dose: 2 mg Documented By: Admin: 12/09/21 17:31 Dose: 2 mg Documented By: CORAZON Lorazepam (Lorazepam 1 Mg Tablet) 0 mg PO CIWAPRN PRN; Protocol PRN Reason: Alcohol Withdrawal Last Admin: 12/10/21 16:00 Dose: 2 mg Documented By: Admin: 12/09/21 22:33 Dose: 2 mg Documented By: FATOUMATA Methocarbamol (Methocarbamol 500 Mg Tablet) 500 mg PO TID PRN PRN Reason: Muscle Spasm Last Admin: 12/11/21 06:26 Dose: 500 mg Documented By: JEAN-CLAUDE Admin: 12/10/21 23:21 Dose: 500 mg Documented By: JEAN-CLAUDE Admin: 12/10/21 11:59 Dose: 500 mg Documented By: Admin: 12/09/21 22:38 Dose: 500 mg Documented By: FATOUMATA Metoprolol Succinate (Metoprolol Er 50 Mg Tablet) 100 mg PO DAILY [facility] [place] Last Admin: 12/11/21 09:44 Dose: 100 mg Documented By: Admin: 12/10/21 11:44 Dose: Not Given Documented By: Admin: 12/09/21 15:00 Dose: 100 mg Documented By: CORAZON Metoprolol Tartrate (Metoprolol Ir 25 Mg Tablet) 100 mg PO NOW ONE Stop: 12/09/21 06:31 Last Admin: 12/09/21 06:47 Dose: Not Given Documented By: RITIKA Multivitamins (Multivitamin 1 Tablet) 1 tab PO DAILY [facility] [place] Last Admin: 12/11/21 09:44 Dose: 1 tab Documented By: Admin: 12/10/21 11:43 Dose: 1 tab Documented By: JENNY Naloxone HCl (Naloxone 0.4 Mg/Ml Vial) 0.2 mg IV Q2MIN PRN PRN Reason: Opiate Reversal Ondansetron HCl (Ondansetron 4 Mg/2 Ml Inj) 4 mg IV NOW ONE Stop: 12/09/21 02:32 Last Admin: 12/09/21 02:34 Dose: 4 mg Documented By: DALY Ondansetron HCl (Ondansetron 4 Mg/2 Ml Inj) 4 mg IV NOW ONE Stop: 12/09/21 05:50 Last Admin: 12/09/21 05:53 Dose: 4 mg Documented By: RITIKA Ondansetron HCl (Ondansetron 4 Mg/2 Ml Inj) 4 mg IV Q4HR PRN PRN Reason: Nausea And Vomiting Last Admin: 12/10/21 16:24 Dose: 4 mg Documented By: JENNY Oxycodone HCl (Oxycodone Ir 5 Mg Tablet) 5 mg PO Q4HR PRN PRN Reason: Pain, Severe (7-10) Last Admin: 12/09/21 13:01 Dose: 5 mg Documented By: CORAZON Oxycodone HCl (Oxycodone Ir 10 Mg Tablet) 10 mg PO Q6HR PRN PRN Reason: Pain, Severe (7-10) Last Admin: 12/11/21 03:58 Dose: 10 mg Documented By: JEAN-CLAUDE Admin: 12/10/21 21:27 Dose: 10 mg Documented By: JEAN-CLAUDE Admin: 12/10/21 06:58 Dose: 10 mg Documented By: Admin: 12/10/21 00:04 Dose: 10 mg Documented By: Admin: 12/09/21 15:00 Dose: 10 mg Documented By: CORAZON Oxycodone HCl (Oxycodone Ir 5 Mg Tablet) 5 mg PO Q4HR PRN PRN Reason: Pain, Moderate (4-6) Last Admin: 12/10/21 10:01 Dose: 5 mg Documented By: JENNY Oxycodone/Acetaminophen (Oxycodone/Acetaminophen 5/325 Tablet) 1 tab PO NOW ONE Stop: 12/09/21 10:39 Last Admin: 12/09/21 10:42 Dose: 1 tab Documented By: COY(2) Pantoprazole Sodium (Pantoprazole 40 Mg Vial) 40 mg IV NOW ONE Stop: 12/09/21 05:47 Last Admin: 12/09/21 05:53 Dose: 40 mg Documented By: RITIKA Phenobarbital (Phenobarbital 65 Mg/Ml Vial) 260 mg IV NOW ONE Stop: 12/09/21 06:04 Last Admin: 12/09/21 06:11 Dose: 260 mg Documented By: DALY Phenobarbital (Phenobarbital 65 Mg/Ml Vial) 65 mg IV NOW ONE Stop: 12/10/21 17:46 Last Admin: 12/10/21 18:11 Dose: 65 mg Documented By: JENNY Phenobarbital (Phenobarbital 65 Mg/Ml Vial) 65 mg IV NOW ONE Stop: 12/10/21 19:08 Last Admin: 12/10/21 19:56 Dose: 65 mg Documented By: JEAN-CLAUDE Sodium Chloride (Sodium Chloride 0.9% Flush) 10 ml IV PRN PRN PRN Reason: Flush Last Admin: 12/09/21 21:24 Dose: 10 ml Documented By: Admin: 12/09/21 21:20 Dose: 10 ml Documented By: FATOUMATA Sodium Chloride (Sodium Chloride 0.9% Flush) 10 ml IV BID LAUREN Last Admin: 12/11/21 09:50 Dose: Not Given Documented By: Admin: 12/10/21 20:59 Dose: 10 ml Documented By: JEAN-CLAUDE Admin: 12/10/21 11:54 Dose: Not Given Documented By: Admin: 12/09/21 19:42 Dose: 10 ml Documented By: FATOUMATA Thiamine HCl (Thiamine 100 Mg Tablet) 100 mg PO DAILY [facility] [place] Stop: 12/12/21 09:01 Last Admin: 12/11/21 09:44 Dose: 100 mg Documented By: Admin: 12/10/21 12:14 Dose: Not Given Documented By: Admin: 12/09/21 13:19 Dose: 100 mg Documented By: CORAZON Trazodone HCl (Trazodone 100 Mg Tablet) 300 mg PO BEDTIME [facility] [facility] Last Admin: 12/10/21 21:27 Dose: 300 mg Documented By: JEAN-CLAUDE Admin: 12/09/21 21:20 Dose: 300 mg Documented By: FATOUMATA Trazodone HCl (Trazodone 100 Mg Tablet) 100 mg PO BEDTIME PRN PRN Reason: insomnia Consultations Consultation #1: Spoke with hospitalist, Dr. Sage, he will accept patient for admit Time: 08:06 Vital Signs Vital signs: Vital Signs - 8 hr 12/09/21 05:35 12/09/21 05:37 12/09/21 06:32 Temperature 97.8 F Pulse Rate 67 66 Respiratory Rate 17 19 Blood Pressure 207/103 H 207/103 H Pulse Oximetry 96 93 12/09/21 06:33 12/09/21 07:00 12/09/21 07:18 Temperature Pulse Rate 64 68 69 Respiratory Rate 18 18 20 Blood Pressure 194/102 H 228/109 H Pulse Oximetry 92 96 MDM - Fall <Allan Kaye DO - Last Filed: 12/12/21 07:40> Lab Data Result diagrams: 12/11/21 07:26 12/11/21 07:26 Labs: Lab Results 12/08/21 12/08/21 12/08/21 Range/Units 23:05 23:05 23:05 WBC 7.4 (4.5-11.0) X10^3/uL RBC 4.93 (4.5-5.9) X10^6/uL Hgb 15.6 (13.5-17.5) g/dL Hct 46.0 (41-53) % MCV 93.3 (80-100) fL MCH 31.7 (26-34) PG MCHC 34.0 (30-36) % RDW 13.7 (11.6-14.8) % Plt Count 241 (150-400) X10^3/uL Neut % (Auto) 64.7 (50-75) % Lymph % (Auto) 23.0 L (25-40) % Calloway % (Auto) 9.5 (3-14) % Eos % (Auto) 2.0 (2-4) % Baso % (Auto) 0.8 (0-2) % Neut # (Auto) 4800 (8144-1161) /uL Lymph # (Auto) 1700 (6928-4803) /uL Calloway # (Auto) 700 (0-900) /uL Eos # (Auto) 100 (0-450) /uL Baso # (Auto) 100 (0-100) /uL Sodium 140 (137-145) mmol/L Potassium 4.5 (3.4-5.1) mmol/L Chloride 104 (98-107) mmol/L Carbon Dioxide 27 (22-32) mmol/L BUN 21 H (9-20) mg/dL Creatinine 0.88 (0.66-1.25) mg/dL Estimated GFR > 60 (>60) mL/min BUN/Creatinine Ratio 23.9 H (6-22) Glucose 124 H (80-110) mg/dL Lactate 2.3 H (0.7-2.1) mmol/L Calcium 8.4 (8.4-10.2) mg/dL Total Bilirubin 0.9 (0.2-1.3) mg/dL AST 32 (17-59) IU/L ALT 31 (<50) IU/L Alkaline Phosphatase 64 (38-126) U/L Total Protein 7.0 (6.3-8.2) g/dL Albumin 4.1 (3.5-5.0) g/dL Globulin 2.9 (1.7-4.1) g/dL Albumin/Globulin Ratio 1.4 (1.0-2.8) TSH (0.47-4.68) uIU/mL Prolactin 18.9 H (3.7-17.9) ng/mL Urine Color Urine Appearance Urine pH (4.5-8.0) Ur Specific Oxly (1.000-1.035) Urine Protein (Negative) Urine Glucose (UA) (Negative) g/dL Urine Ketones (NEGATIVE) Urine Occult Blood (Negative) Urine Nitrate (Negative) Urine Bilirubin (NEGATIVE) Urine Urobilinogen (0.2) E.U./dL Ur Leukocyte Esterase (NEGATIVE) Urine RBC (0-5/HPF) Urine WBC (0-5/HPF) Ur Squamous Epith Cells (0-5/HPF) Urine Bacteria (None) Ur Culture Indicated? Salicylates < 1.0 (<20) mg/dL U Opiates 300ng/mL cut (Negative) Ur Oxycodone Screen (Negative) Urine Methadone Screen (Negative) Acetaminophen < 10 (10-30) ug/mL Ur Barbiturates Screen (Negative) U Tricyclic Antidepress (Negative) Ur Phencyclidine Scrn (Negative) Ur Amphetamines Screen (Negative) U Methamphetamines Scrn (Negative) Ur MDMA Scrn (Ecstasy) (Negative) U Benzodiazepines Scrn (Negative) Urine Cocaine Screen (Negative) U Marijuana (THC) Screen (Negative) Ethyl Alcohol 111 H ( - 10) mg/dL SARS-CoV-2 (PCR) (Negative) 12/08/21 12/08/21 12/08/21 Range/Units 23:05 23:44 23:57 WBC (4.5-11.0) X10^3/uL RBC (4.5-5.9) X10^6/uL Hgb (13.5-17.5) g/dL Hct (41-53) % MCV (80-100) fL MCH (26-34) PG MCHC (30-36) % RDW (11.6-14.8) % Plt Count (150-400) X10^3/uL Neut % (Auto) (50-75) % Lymph % (Auto) (25-40) % Calloway % (Auto) (3-14) % Eos % (Auto) (2-4) % Baso % (Auto) (0-2) % Neut # (Auto) (9745-8440) /uL Lymph # (Auto) (5706-6505) /uL Calloway # (Auto) (0-900) /uL Eos # (Auto) (0-450) /uL Baso # (Auto) (0-100) /uL Sodium (137-145) mmol/L Potassium (3.4-5.1) mmol/L Chloride (98-107) mmol/L Carbon Dioxide (22-32) mmol/L BUN (9-20) mg/dL Creatinine (0.66-1.25) mg/dL Estimated GFR (>60) mL/min BUN/Creatinine Ratio (6-22) Glucose (80-110) mg/dL Lactate (0.7-2.1) mmol/L Calcium (8.4-10.2) mg/dL Total Bilirubin (0.2-1.3) mg/dL AST (17-59) IU/L ALT (<50) IU/L Alkaline Phosphatase (38-126) U/L Total Protein (6.3-8.2) g/dL Albumin (3.5-5.0) g/dL Globulin (1.7-4.1) g/dL Albumin/Globulin Ratio (1.0-2.8) TSH 2.07 (0.47-4.68) uIU/mL Prolactin (3.7-17.9) ng/mL Urine Color Yellow Urine Appearance Clear Urine pH 5.0 (4.5-8.0) Ur Specific Oxly 1.020 (1.000-1.035) Urine Protein Negative (Negative) Urine Glucose (UA) Negative (Negative) g/dL Urine Ketones Trace H (NEGATIVE) Urine Occult Blood Negative (Negative) Urine Nitrate Negative (Negative) Urine Bilirubin Negative (NEGATIVE) Urine Urobilinogen 0.2 (0.2) E.U./dL Ur Leukocyte Esterase Negative (NEGATIVE) Urine RBC None seen (0-5/HPF) Urine WBC None seen (0-5/HPF) Ur Squamous Epith Cells 0-1 /hpf (0-5/HPF) Urine Bacteria None seen (None) Ur Culture Indicated? Cult not indicated Salicylates (<20) mg/dL U Opiates 300ng/mL cut (Negative) Ur Oxycodone Screen (Negative) Urine Methadone Screen (Negative) Acetaminophen (10-30) ug/mL Ur Barbiturates Screen (Negative) U Tricyclic Antidepress (Negative) Ur Phencyclidine Scrn (Negative) Ur Amphetamines Screen (Negative) U Methamphetamines Scrn (Negative) Ur MDMA Scrn (Ecstasy) (Negative) U Benzodiazepines Scrn (Negative) Urine Cocaine Screen (Negative) U Marijuana (THC) Screen (Negative) Ethyl Alcohol ( - 10) mg/dL SARS-CoV-2 (PCR) Negative (Negative) 12/08/21 12/09/21 Range/Units 23:57 01:33 WBC (4.5-11.0) X10^3/uL RBC (4.5-5.9) X10^6/uL Hgb (13.5-17.5) g/dL Hct (41-53) % MCV (80-100) fL MCH (26-34) PG MCHC (30-36) % RDW (11.6-14.8) % Plt Count (150-400) X10^3/uL Neut % (Auto) (50-75) % Lymph % (Auto) (25-40) % Calloway % (Auto) (3-14) % Eos % (Auto) (2-4) % Baso % (Auto) (0-2) % Neut # (Auto) (8295-5035) /uL Lymph # (Auto) (0295-7030) /uL Calloway # (Auto) (0-900) /uL Eos # (Auto) (0-450) /uL Baso # (Auto) (0-100) /uL Sodium (137-145) mmol/L Potassium (3.4-5.1) mmol/L Chloride (98-107) mmol/L Carbon Dioxide (22-32) mmol/L BUN (9-20) mg/dL Creatinine (0.66-1.25) mg/dL Estimated GFR (>60) mL/min BUN/Creatinine Ratio (6-22) Glucose (80-110) mg/dL Lactate 1.5 (0.7-2.1) mmol/L Calcium (8.4-10.2) mg/dL Total Bilirubin (0.2-1.3) mg/dL AST (17-59) IU/L ALT (<50) IU/L Alkaline Phosphatase (38-126) U/L Total Protein (6.3-8.2) g/dL Albumin (3.5-5.0) g/dL Globulin (1.7-4.1) g/dL Albumin/Globulin Ratio (1.0-2.8) TSH (0.47-4.68) uIU/mL Prolactin (3.7-17.9) ng/mL Urine Color Urine Appearance Urine pH (4.5-8.0) Ur Specific Oxly (1.000-1.035) Urine Protein (Negative) Urine Glucose (UA) (Negative) g/dL Urine Ketones (NEGATIVE) Urine Occult Blood (Negative) Urine Nitrate (Negative) Urine Bilirubin (NEGATIVE) Urine Urobilinogen (0.2) E.U./dL Ur Leukocyte Esterase (NEGATIVE) Urine RBC (0-5/HPF) Urine WBC (0-5/HPF) Ur Squamous Epith Cells (0-5/HPF) Urine Bacteria (None) Ur Culture Indicated? Salicylates (<20) mg/dL U Opiates 300ng/mL cut Positive H (Negative) Ur Oxycodone Screen Negative (Negative) Urine Methadone Screen Negative (Negative) Acetaminophen (10-30) ug/mL Ur Barbiturates Screen Negative (Negative) U Tricyclic Antidepress Negative (Negative) Ur Phencyclidine Scrn Negative (Negative) Ur Amphetamines Screen Negative (Negative) U Methamphetamines Scrn Negative (Negative) Ur MDMA Scrn (Ecstasy) Negative (Negative) U Benzodiazepines Scrn Positive H (Negative) Urine Cocaine Screen Negative (Negative) U Marijuana (THC) Screen Negative (Negative) Ethyl Alcohol ( - 10) mg/dL SARS-CoV-2 (PCR) (Negative) Point of Care Testing Stool Occult Blood Positive Glucose POC [address] scan - head: Radiologist's Impression: [address] [address] [address] Scan Report Signed Patient: Karthikeyan Yo MR#: [id number] : 1945 Acct:[id number] Age/Sex: 76 / M Date of Service: 12/08/21 Loc: ED Accession Number: [id number] ?? Procedure: CT head/brain wo con Ordering Provider: Allan Kaye D.O. PROCEDURE:? CT HEAD/BRAIN WO CON ? INDICATIONS:? trauma ? TECHNIQUE:? Noncontrast 4.5 mm thick angled axial sections acquired from the foramen magnum to the vertex, with coronal and sagittal reformats.? For radiation dose reduction, the following was used:? automated exposure control, adjustment of mA and/or kV according to patient size.? ? COMPARISON:? [facility], CT, CT HEAD/BRAIN WO CON, 04/17/2021, 12:21. ? FINDINGS:? Image quality:? Excellent.? ? CSF spaces:? Basal cisterns are patent.? The ventricles are symmetric in size and shape.? There is mild cerebral volume loss, with resultant ventricular and sulcal prominence.? There is a small right choroidal fissure cyst redemonstrated.? ? Brain:? No intracranial hemorrhage, mass, or mass effect.? The richardson-white matter junction appears preserved.? There is intracranial internal carotid artery atherosclerosis.? ? Skull and face:? Calvarium and visualized facial bones appear intact, without suspicious lesions.? ? Sinuses:? Visualized sinuses redemonstrate wall thickening and mucoperiosteal thickening within the visualized left maxillary sinus suggesting sequelae of chronic sinusitis.? The mastoid air cells are clear. ? IMPRESSION:? ? 1. No acute intracranial abnormality. ? 2. Bony remodeling in the left maxillary sinus redemonstrated consistent with sequelae of chronic sinusitis. ? 3. Mild cerebral volume loss.? ? ? Dictated by: Chapincito Rodriguez M.D. on 12/08/2021 at 21:42 ? ? Approved by: Chapincito Rodriguez M.D. on 12/08/2021 at 21:44 ? CT - cervical spine: Radiologist's Impression: Karthikeyan Yo??76??M??1945 ? Allergy/Adv: celecoxib, latex, Sulfa (Sulfonamide Antibiotics), varenicline, buprenorphine, hyoscyamine, [id number] Reductase Inhibitor, diazepam (More??) Close Head CT (Signed) Chapincito Rodriguez - 12/08/[address] (Signed) Chapincito Rodriguez - 12/08/21 Chest X-Ray (Signed) Hugo Humphrey - 11/29/21 Chest X-Ray (Signed) Dima Horn - 11/20/21 Echocardiogram Ultrasound (Signed) Cara Webster - 10/09/21 Brain MRI (Signed) Estiven Magana - 10/09/21 Telemetry Strips 10/09/21 Head/Neck CTA (Signed) Katherine Crawford - 10/08/21 Chest X-Ray (Signed) CrawfordAydefernando - 10/08/21 Lumbar Spine MRI (Signed) KingChuy - 09/16/21 Knee X-Ray (Signed) Sanam Dickerson - 04/17/[address] (Signed) Kim Cooke - 04/17/[address] (Signed) Joyce,Arnie - 04/17/21 Chest X-Ray (Signed) Estiven Magana - 03/06/21 Chest X-Ray (Signed) Mooreland,Arnie - 12/29/20 Chest CTA (Signed) WalshMike - 11/23/20 Chest X-Ray (Signed) WalshMike - 11/23/20 Hand X-Ray (Signed) Dany Smith - 11/08/20 Telemetry Strips 11/05/20 Tibia/Fibula X-Ray (Signed) Call,Timo - 11/05/20 Knee X-Ray (Signed) Call,Timo - 11/05/20 Ankle X-Ray (Signed) Call,Timo - 11/05/20 Knee X-Ray (Signed) Call,Timo - 11/05/20 Ankle X-Ray (Signed) Sanam Dickerson - 11/05/20 Chest X-Ray (Signed) Call,Timo - 11/01/20 Chest/Abdomen/Pelvis CTA (Signed) Dany Smith - 08/29/20 Vascular Ultrasound (Signed) Call,Timo - 08/17/20 Foot X-Ray (Signed) Call,Timo - 08/17/20 Foot X-Ray (Signed) Damien Medina - 08/12/20 Chest X-Ray (Signed) Reji Starr - 07/19/20 [place] [address] CT Scan Report Signed Patient: Karthikeyan Yo MR#: [id number] : 1945 Acct:[id number] Age/Sex: 76 / M Date of Service: 12/08/21 Loc: ED Accession Number: [id number] ?? Procedure: CT cervical spine wo con Ordering Provider: Allan Kaye D.O. PROCEDURE:? CT CERVICAL SPINE WO CON ? INDICATIONS:? trauma ? TECHNIQUE:? Noncontrast 3 mm thick sections acquired from the skull base to the T4 level.? Sagittal and coronal reformats were then constructed.? For radiation dose reduction, the following was used:? automated exposure control, adjustment of mA and/or kV according to patient size.? ? COMPARISON:? [facility], CT, CT CERVICAL SPINE WO CON, 04/17/2021, 12:21. ? FINDINGS:? Image quality:? There is motion artifact limiting evaluation.? ? Bones:? No fractures or subluxation.? There is anterolisthesis at C2-C3 measuring approximately 0.4 cm and minimal anterolisthesis at C3-C4 measuring approximately 0.2 cm. ?Minimal anterolisthesis also demonstrated at T1-T2.? Findings are similar to the prior study.? There are postsurgical changes also redemonstrated status post prior ACDF at C4-C5 and C7-T1.? There is also fusion at C5-C6 and C6-C7.? There is mild to moderate degenerative disc disease within the visualized upper thoracic spine.? Mild disc degeneration also demonstrated at C2-C3 and C3-C4.? There is multilevel moderate facet arthropathy throughout the cervical spine.? Visualized superior ribs are intact.? ? Soft tissues:? Prevertebral soft tissues are normal in thickness.? No paravertebral hematomas.? No apical pneumothoraces.? ? IMPRESSION:? ? 1.? No acute fracture or subluxation. ? 2. Postsurgical changes redemonstrated throughout the cervical spine with fusion of multiple levels as described. ? ? ? Dictated by: Chapincito Rodriguez M.D. on 12/08/2021 at 21:44 ? ? Approved by: Chapincito Rodriguez M.D. on 12/08/2021 at 21:48 ? <Beny Gutierrez MD - Last Filed: 01/16/22 01:21> Differential Diagnosis Differential diagnosis: Likely other (Fall/injury/alcohol withdrawal) Lab Data Labs: Lab Results 12/08/21 12/08/21 12/08/21 Range/Units 23:05 23:05 23:05 WBC 7.4 (4.5-11.0) X10^3/uL RBC 4.93 (4.5-5.9) X10^6/uL Hgb 15.6 (13.5-17.5) g/dL Hct 46.0 (41-53) % MCV 93.3 (80-100) fL MCH 31.7 (26-34) PG MCHC 34.0 (30-36) % RDW 13.7 (11.6-14.8) % Plt Count 241 (150-400) X10^3/uL Neut % (Auto) 64.7 (50-75) % Lymph % (Auto) 23.0 L (25-40) % Calloway % (Auto) 9.5 (3-14) % Eos % (Auto) 2.0 (2-4) % Baso % (Auto) 0.8 (0-2) % Neut # (Auto) 4800 (4522-8553) /uL Lymph # (Auto) 1700 (7620-1388) /uL Calloway # (Auto) 700 (0-900) /uL Eos # (Auto) 100 (0-450) /uL Baso # (Auto) 100 (0-100) /uL Sodium 140 (137-145) mmol/L Potassium 4.5 (3.4-5.1) mmol/L Chloride 104 (98-107) mmol/L Carbon Dioxide 27 (22-32) mmol/L BUN 21 H (9-20) mg/dL Creatinine 0.88 (0.66-1.25) mg/dL Estimated GFR > 60 (>60) mL/min BUN/Creatinine Ratio 23.9 H (6-22) Glucose 124 H (80-110) mg/dL Lactate 2.3 H (0.7-2.1) mmol/L Calcium 8.4 (8.4-10.2) mg/dL Total Bilirubin 0.9 (0.2-1.3) mg/dL AST 32 (17-59) IU/L ALT 31 (<50) IU/L Alkaline Phosphatase 64 (38-126) U/L Total Protein 7.0 (6.3-8.2) g/dL Albumin 4.1 (3.5-5.0) g/dL Globulin 2.9 (1.7-4.1) g/dL Albumin/Globulin Ratio 1.4 (1.0-2.8) TSH (0.47-4.68) uIU/mL Prolactin 18.9 H (3.7-17.9) ng/mL Urine Color Urine Appearance Urine pH (4.5-8.0) Ur Specific Oxly (1.000-1.035) Urine Protein (Negative) Urine Glucose (UA) (Negative) g/dL Urine Ketones (NEGATIVE) Urine Occult Blood (Negative) Urine Nitrate (Negative) Urine Bilirubin (NEGATIVE) Urine Urobilinogen (0.2) E.U./dL Ur Leukocyte Esterase (NEGATIVE) Urine RBC (0-5/HPF) Urine WBC (0-5/HPF) Ur Squamous Epith Cells (0-5/HPF) Urine Bacteria (None) Ur Culture Indicated? Salicylates < 1.0 (<20) mg/dL U Opiates 300ng/mL cut (Negative) Ur Oxycodone Screen (Negative) Urine Methadone Screen (Negative) Acetaminophen < 10 (10-30) ug/mL Ur Barbiturates Screen (Negative) U Tricyclic Antidepress (Negative) Ur Phencyclidine Scrn (Negative) Ur Amphetamines Screen (Negative) U Methamphetamines Scrn (Negative) Ur MDMA Scrn (Ecstasy) (Negative) U Benzodiazepines Scrn (Negative) Urine Cocaine Screen (Negative) U Marijuana (THC) Screen (Negative) Ethyl Alcohol 111 H ( - 10) mg/dL SARS-CoV-2 (PCR) (Negative) 12/08/21 12/08/21 12/08/21 Range/Units 23:05 23:44 23:57 WBC (4.5-11.0) X10^3/uL RBC (4.5-5.9) X10^6/uL Hgb (13.5-17.5) g/dL Hct (41-53) % MCV (80-100) fL MCH (26-34) PG MCHC (30-36) % RDW (11.6-14.8) % Plt Count (150-400) X10^3/uL Neut % (Auto) (50-75) % Lymph % (Auto) (25-40) % Calloway % (Auto) (3-14) % Eos % (Auto) (2-4) % Baso % (Auto) (0-2) % Neut # (Auto) (9489-7039) /uL Lymph # (Auto) (8360-7290) /uL Calloway # (Auto) (0-900) /uL Eos # (Auto) (0-450) /uL Baso # (Auto) (0-100) /uL Sodium (137-145) mmol/L Potassium (3.4-5.1) mmol/L Chloride (98-107) mmol/L Carbon Dioxide (22-32) mmol/L BUN (9-20) mg/dL Creatinine (0.66-1.25) mg/dL Estimated GFR (>60) mL/min BUN/Creatinine Ratio (6-22) Glucose (80-110) mg/dL Lactate (0.7-2.1) mmol/L Calcium (8.4-10.2) mg/dL Total Bilirubin (0.2-1.3) mg/dL AST (17-59) IU/L ALT (<50) IU/L Alkaline Phosphatase (38-126) U/L Total Protein (6.3-8.2) g/dL Albumin (3.5-5.0) g/dL Globulin (1.7-4.1) g/dL Albumin/Globulin Ratio (1.0-2.8) TSH 2.07 (0.47-4.68) uIU/mL Prolactin (3.7-17.9) ng/mL Urine Color Yellow Urine Appearance Clear Urine pH 5.0 (4.5-8.0) Ur Specific Oxly 1.020 (1.000-1.035) Urine Protein Negative (Negative) Urine Glucose (UA) Negative (Negative) g/dL Urine Ketones Trace H (NEGATIVE) Urine Occult Blood Negative (Negative) Urine Nitrate Negative (Negative) Urine Bilirubin Negative (NEGATIVE) Urine Urobilinogen 0.2 (0.2) E.U./dL Ur Leukocyte Esterase Negative (NEGATIVE) Urine RBC None seen (0-5/HPF) Urine WBC None seen (0-5/HPF) Ur Squamous Epith Cells 0-1 /hpf (0-5/HPF) Urine Bacteria None seen (None) Ur Culture Indicated? Cult not indicated Salicylates (<20) mg/dL U Opiates 300ng/mL cut (Negative) Ur Oxycodone Screen (Negative) Urine Methadone Screen (Negative) Acetaminophen (10-30) ug/mL Ur Barbiturates Screen (Negative) U Tricyclic Antidepress (Negative) Ur Phencyclidine Scrn (Negative) Ur Amphetamines Screen (Negative) U Methamphetamines Scrn (Negative) Ur MDMA Scrn (Ecstasy) (Negative) U Benzodiazepines Scrn (Negative) Urine Cocaine Screen (Negative) U Marijuana (THC) Screen (Negative) Ethyl Alcohol ( - 10) mg/dL SARS-CoV-2 (PCR) Negative (Negative) 12/08/21 12/09/21 Range/Units 23:57 01:33 WBC (4.5-11.0) X10^3/uL RBC (4.5-5.9) X10^6/uL Hgb (13.5-17.5) g/dL Hct (41-53) % MCV (80-100) fL MCH (26-34) PG MCHC (30-36) % RDW (11.6-14.8) % Plt Count (150-400) X10^3/uL Neut % (Auto) (50-75) % Lymph % (Auto) (25-40) % Calloway % (Auto) (3-14) % Eos % (Auto) (2-4) % Baso % (Auto) (0-2) % Neut # (Auto) (6734-8827) /uL Lymph # (Auto) (4697-5197) /uL Calloway # (Auto) (0-900) /uL Eos # (Auto) (0-450) /uL Baso # (Auto) (0-100) /uL Sodium (137-145) mmol/L Potassium (3.4-5.1) mmol/L Chloride (98-107) mmol/L Carbon Dioxide (22-32) mmol/L BUN (9-20) mg/dL Creatinine (0.66-1.25) mg/dL Estimated GFR (>60) mL/min BUN/Creatinine Ratio (6-22) Glucose (80-110) mg/dL Lactate 1.5 (0.7-2.1) mmol/L Calcium (8.4-10.2) mg/dL Total Bilirubin (0.2-1.3) mg/dL AST (17-59) IU/L ALT (<50) IU/L Alkaline Phosphatase (38-126) U/L Total Protein (6.3-8.2) g/dL Albumin (3.5-5.0) g/dL Globulin (1.7-4.1) g/dL Albumin/Globulin Ratio (1.0-2.8) TSH (0.47-4.68) uIU/mL Prolactin (3.7-17.9) ng/mL Urine Color Urine Appearance Urine pH (4.5-8.0) Ur Specific Oxly (1.000-1.035) Urine Protein (Negative) Urine Glucose (UA) (Negative) g/dL Urine Ketones (NEGATIVE) Urine Occult Blood (Negative) Urine Nitrate (Negative) Urine Bilirubin (NEGATIVE) Urine Urobilinogen (0.2) E.U./dL Ur Leukocyte Esterase (NEGATIVE) Urine RBC (0-5/HPF) Urine WBC (0-5/HPF) Ur Squamous Epith Cells (0-5/HPF) Urine Bacteria (None) Ur Culture Indicated? Salicylates (<20) mg/dL U Opiates 300ng/mL cut Positive H (Negative) Ur Oxycodone Screen Negative (Negative) Urine Methadone Screen Negative (Negative) Acetaminophen (10-30) ug/mL Ur Barbiturates Screen Negative (Negative) U Tricyclic Antidepress Negative (Negative) Ur Phencyclidine Scrn Negative (Negative) Ur Amphetamines Screen Negative (Negative) U Methamphetamines Scrn Negative (Negative) Ur MDMA Scrn (Ecstasy) Negative (Negative) U Benzodiazepines Scrn Positive H (Negative) Urine Cocaine Screen Negative (Negative) U Marijuana (THC) Screen Negative (Negative) Ethyl Alcohol ( - 10) mg/dL SARS-CoV-2 (PCR) (Negative) Point of Care Testing Stool Occult Blood Positive Glucose POC 118 Discharge Plan Departure Patient Disposition: Admitted As Inpatient Clinical Impression: Intractable nausea and vomiting Admit Date/Time: 12/09/21 08:04 Admit Provider: Rayo Sage
[2021-12-09] MEDS: CODEINE/ACETAMINOPHEN 30/300 TABLET 1 TAB PO (01:35)
[2021-12-09 01:53] LABS: Lactate 2HR (Lactic Acid Rflx) 1.5 mmol/L (0.7-2.1)
[2021-12-09] MEDS: ONDANSETRON 4 MG/2 ML INJ IV ×2 (02:34→05:53)
--- NOTE | 2021-12-09 02:36 | PC.NURSE ---
pt continually uncooperative, pt has been told several times to stay in the bed and not get up without assistance, to call on the call light, pt continues to get up without assistance, was told he needed to lay down in the bed if given pain medication, pt laid down to take the medication now is sitting on the side of the bed stating he can't lay down, pt is forgetful, c/o nausea and has been medicated pt was instructed not to drink anything else until nausea has subsided
--- NOTE | 2021-12-09 03:22 | DI.CT.S_ITS ---
PROCEDURE: CT LUMBAR SPINE WO CON INDICATIONS: fall with new pain TECHNIQUE: Noncontrast 3 mm thick sections acquired from the T12 level to the sacrum. Sagittal and coronal reformats were constructed. For radiation dose reduction, the following was used: automated exposure control. COMPARISON: None. FINDINGS: Image quality: Excellent. Bones: L4-S1 TLIF. Orthopedic hardware is intact. There is trace, approximately 2 millimeters of L1-L2 anterolisthesis. There is mild convex right curvature of the upper lumbar spine. No acute vertebral body compression fractures. No suspicious lytic or blastic bony lesions. Spine degenerative disc disease and facet arthropathy. No pars defects. Soft tissues: No retroperitoneal masses or hematomas. Visualized aorta is normal in caliber. Scattered diverticuli noted in the visualized colon. IMPRESSION: No fracture. No acute osseous lesion. If symptoms and/or clinical suspicion for pathology persists, evaluation with MRI should be considered for further assessment. Dictated by: Rubia Garrison MD, PhD on 12/09/2021 at 7:11 Approved by: Rubia Garrison MD, PhD on 12/09/2021 at 7:14
[2021-12-09] MEDS: HYDROMORPHONE 0.5 MG INJ IV (04:04)
[2021-12-09] MEDS: PANTOPRAZOLE 40 MG VIAL IV (05:53)
[2021-12-09] MEDS: PHENobarbital 65 MG/ML VIAL 260 MG IV (06:11)
--- NOTE | 2021-12-09 06:23 | PC.NURSE ---
pt n/v, shaky, diaphoretic, with diarrhea, h/a denies drinking on a daily basis. pt medicated for withdrawal s/s
[2021-12-09] MEDS: lisinopriL 20 MG TABLET PO (06:42)
[2021-12-09] MEDS: HYDRALAZINE 20 MG/ML VIAL 10 MG IV (07:16)
[2021-12-09] MEDS: ALBUTEROL 2.5 MG/3 ML NEB (ADULT) INH ×3 (07:17→19:45)
[2021-12-09] MEDS: LORazepam 2 MG/ML INJ 1 MG IV (08:12)
[2021-12-09] MEDS: LORazepam 2 MG/ML INJ IV ×4 (10:03→21:24)
[2021-12-09] MEDS: OXYCODONE/ACETAMINOPHEN 5/325 TABLET 1 TAB PO (10:42)
[2021-12-09] MEDS: ACETAMINOPHEN 325 MG TABLET 975 MG PO (13:01)
[2021-12-09] MEDS: OXYCODONE IR 5 MG TABLET PO (13:01)
[2021-12-09] MEDS: THIAMINE 100 MG TABLET PO (13:19)
--- NOTE | 2021-12-09 13:50 | P.HP_ITS ---
History of Present Illness History of Present Illness Date Patient Seen: 12/09/21 Time Patient Seen: 13:50 Chief complaint: Back Pain Narrative: This is a 76 year old male with PMH of afib, CAD, prior aortic dissection, chronic low back pain who presented after a fall. He had been drinking last night when he stumbled and fell forward, striking his nose. He denied loss of consciousness and he had no nausea or vomiting, chest pain, palpitations, shortness of breath. In the emergency room, the patient was hypertensive, with nausea and vomiting that was reportedly intractable. The patient states that he did drink yesterday evening, he does not think that he drinks that much. He did not further quantify how much he drinks every day when asked directly. He denies any shaking or withdrawal symptoms when he stops drinking, and he denies any prior seizures from alcohol withdrawal. He states that he ran out of trazodone and had not slept in 2 days at home, and this is why he drank yesterday evening. In the emergency room, the patient was given phenobarbital with some improvement in his symptoms, he did remain more hypertensive with nausea and vomiting but this improved with Ativan that was given in the emergency room. It also appears that he had been on clonidine recently from his PCP. Initial laboratory evaluation was unremarkable, urinalysis was unremarkable, urine drug screen was positive for opiates and benzodiazepines. Alcohol level was 111. COVID-19 testing was negative. Patient was admitted for further management of alcohol withdrawal Patient History Medical History Achalasia Anginal pain Asthma Atrial fibrillation Cervical spinal stenosis Chronic obstructive pulmonary disease (10/23/16) COPD (chronic obstructive pulmonary disease) Coronary artery disease History of aortic dissection (~08/2007) Hypertension Ischemic cardiomyopathy Narcotic dependence Neck pain, chronic Ventricular bigeminy Surgical History H/O arthroscopic knee surgery (11/15/17) History of arthroplasty of right knee History of bilateral total hip arthroplasty History of cardiac cath (~03/2014) History of esophageal surgery History of incision and drainage (~2016) History of prior ablation treatment (~03/2017) History of surgery Hx of cholecystectomy Hx of hernia repair Hx of sinus surgery S/P CABG x 3 (~08/2007) S/P cervical spinal fusion S/P lumbar fusion Family & Social History Family History (Updated 12/09/21 @ 13:50 by Rayo Sage DO) Mother Stroke Father Hypertension Social History: household members spouse Safety & Behavioral: Feels Safe in Current Yes Environment Been Physically Hurt or No Threatened By a Person Tobacco & Substance use: Tobacco type cigarettes Smoking Status Former smoker alcohol intake current alcohol intake frequency holiday/special occasion Substance Use Type does not use Meds Home Medications and Allergies Home Medications Medication Instructions Recorded Confirmed Type multivitamin (Multiple Vitamins) 1 tab PO DAILY #0 12/21/16 10/09/21 History fluticasone propionate 50 1 spray INTRANASAL DAILY PRN #0 11/03/17 10/09/21 History mcg/actuation nasal spray,suspension trazodone 100 mg tablet 400 tab PO BEDTIME 12/10/17 10/09/21 History levalbuterol tartrate 45 1 puff INHALATION Q4-6H PRN #15 06/23/18 10/09/21 Rx mcg/actuation aerosol inhaler gram (Xopenex HFA) levalbuterol HCl 1.25 mg/3 mL 3 ml INHALATION Q6H PRN 10/17/18 10/09/21 History solution for nebulization metoprolol tartrate 100 mg tablet 100 mg PO DAILY 10/17/18 10/09/21 History cetirizine 10 mg capsule (Zyrtec) 10 mg PO DAILY 05/23/19 10/09/21 History ferrous sulfate 325 mg (65 mg 325 mg PO DAILY 10/20/19 10/09/21 History iron) tablet,delayed release acetaminophen 325 mg tablet 650 mg PO Q6H PRN #60 tab 11/07/20 10/09/21 Rx (Athenol) oxycodone 5 mg tablet 10 mg PO Q4-5H PRN #60 tab 11/07/20 10/09/21 Rx benzonatate 100 mg capsule 100 mg PO TID PRN #14 cap 03/06/21 10/09/21 Rx (Tessalon Perles) acetaminophen 300 mg-codeine 30 mg 1 tab PO Q6HR PRN 10/09/21 10/09/21 History tablet furosemide 40 mg tablet (Lasix) 40 mg PO DAILY 10/09/21 10/09/21 History glipizide 2.5 mg tablet, extended 2.5 mg PO DAILY 10/09/21 10/09/21 History release 24 hr (Glucotrol XL) cefdinir 300 mg capsule 300 mg PO BID #20 cap 10/10/21 Rx meclizine 25 mg tablet 25 mg PO QID PRN #30 tab 10/10/21 Rx diclofenac sodium 1 % topical gel 2 g TOPICAL QID #100 g 11/20/21 Rx diclofenac sodium 1 % topical gel 2 g TOPICAL QID #100 g 11/20/21 Rx methocarbamol 500 mg tablet 500 mg PO Q8H PRN #14 tab 11/20/21 Rx oxycodone-acetaminophen 5 mg-325 1 tab PO Q8H PRN #10 tab 11/20/21 Rx mg tablet (Percocet) oxycodone-acetaminophen 5 mg-325 1 tab PO TID PRN #10 tab 11/20/21 Rx mg tablet (Percocet) prednisone 50 mg tablet 50 mg PO DAILY #5 tab 11/20/21 Rx albuterol sulfate 1.25 mg/3 mL 2.5 mg (6 mL) INHALATION QID #90 ml 11/29/21 Rx solution for nebulization prednisone 20 mg tablet 20 mg PO DAILY #32 tab 11/29/21 Rx clonidine HCl 0.1 mg tablet 0.2 mg PO TID 12/09/21 12/09/21 History lisinopril 10 mg tablet 10 mg PO DAILY 12/09/21 12/09/21 History Allergies Allergy/AdvReac Type Severity Reaction Status Date / Time celecoxib [CELECOXIB] Allergy Mild SWELLING Verified 11/29/21 15:33 latex [LATEX] Allergy Mild RASH Verified 11/29/21 15:33 W/EXTENDED EXPOSURE Sulfa (Sulfonamide Allergy Mild RASH Verified 11/29/21 15:33 Antibiotics) [SULFA (SULFONAMIDE ANTIBIOTICS)] varenicline [VARENICLINE] AdvReac Severe Paranoia Verified 11/29/21 15:33 buprenorphine [BUPRENORPHINE] AdvReac Mild NAUSEA, Verified 11/29/21 15:33 DIZZINESS hyoscyamine [HYOSCYAMINE] AdvReac Mild LEG Verified 11/29/21 15:33 JERKING, ANXIETY, NAUSEA W/I MINUTES [id number] Reductase AdvReac Mild WEAK Verified 11/29/21 15:33 Inhibitor MUSCLES [[id number] REDUCTASE INHIBITOR] diazepam [From Valium] AdvReac Confusion Verified 11/29/21 15:33 Review of Systems Review of Systems Narrative: All other systems reviewed with the patient and are negative unless otherwise stated. Exam Vital Signs (past 8 hours): - 12/09/21 06:32 12/09/21 06:33 12/09/21 07:00 Pulse Rate 66 64 68 Respiratory Rate 19 18 18 Blood Pressure 194/102 H 228/109 H Pulse Oximetry 93 92 12/09/21 07:18 12/09/21 07:26 12/09/21 07:30 Pulse Rate 69 65 69 Respiratory Rate 20 21 25 H Blood Pressure 219/95 H Pulse Oximetry 96 96 98 12/09/21 07:42 12/09/21 07:49 12/09/21 07:50 Pulse Rate 66 78 75 Respiratory Rate 25 H 30 H Blood Pressure 180/93 H 220/99 H 208/99 H Pulse Oximetry 96 95 96 12/09/21 08:00 12/09/21 08:11 12/09/21 08:30 Pulse Rate 77 70 81 Respiratory Rate 26 H 22 18 Blood Pressure 212/100 H Pulse Oximetry 97 92 94 12/09/21 08:45 12/09/21 08:49 12/09/21 09:00 Pulse Rate 89 79 85 Respiratory Rate 18 16 Blood Pressure 212/99 H 201/96 H Pulse Oximetry 97 97 12/09/21 09:30 12/09/21 10:00 12/09/21 10:30 Pulse Rate 91 H 85 100 H Respiratory Rate 27 H 19 25 H Blood Pressure Pulse Oximetry 95 98 94 12/09/21 10:51 12/09/21 11:00 12/09/21 11:11 Pulse Rate 94 H 101 H 97 H Respiratory Rate Blood Pressure 205/73 H 133/65 178/84 H Pulse Oximetry 93 98 94 12/09/21 11:21 Pulse Rate 90 Respiratory Rate Blood Pressure 168/76 H Pulse Oximetry 93 Oxygen Delivery Method Room Air Narrative Exam Narrative: General:? Patient is well developed and well nourished, Slightly anxious and fidgety. HEENT:? Normocephalic,small abrasion to nose, extraocular muscles intact, oral pharynx is clear and mucous membranes are moist. Neck: supple and symmetric, trachea is midline, no cervical adenopathy. Negative for JVD Chest:? Normal AP diameter and contour without kyphoscoliosis, no tachypnea, equal chest rise bilaterally. Lungs:? CTA b/l no wheezing rhonchi or rales. Cardio:?RRR no m/r/g. Abdomen: S NT ND. Musculoskeletal:? Muscle strength and tone are equal within normal limits, no deformity. Back midline incision well appearing and well healed. Extremities: No edema or joint effusions. No cyanosis or clubbing. Skin:? Pale,? Warm to touch,dry and intact without rashes, ulcerations or petechiae.? Neuro:? Alert and orientated x3,?slightly tangential. Mild tongue fasciculations and tremulousness. Objective ECG Impression: Sinus rhythm with premature atrial complexes as interpreted by me Labs Result Diagrams: 12/08/21 23:05 12/08/21 23:05 Labs: Laboratory Results - last 24 hr 12/08/21 12/08/21 12/08/21 23:05 23:05 23:05 WBC 7.4 RBC 4.93 Hgb 15.6 Hct 46.0 MCV 93.3 MCH 31.7 MCHC 34.0 RDW 13.7 Plt Count 241 Neut % (Auto) 64.7 Lymph % (Auto) 23.0 L [place] % (Auto) 9.5 Eos % (Auto) 2.0 Baso % (Auto) 0.8 Neut # (Auto) 4800 Lymph # (Auto) 1700 [place] # (Auto) 700 Eos # (Auto) 100 Baso # (Auto) 100 Sodium 140 Potassium 4.5 Chloride 104 Carbon Dioxide 27 BUN 21 H Creatinine 0.88 Estimated GFR > 60 BUN/Creatinine Ratio 23.9 H Glucose 124 H Lactate 2.3 H Calcium 8.4 Total Bilirubin 0.9 AST 32 ALT 31 Alkaline Phosphatase 64 Total Protein 7.0 Albumin 4.1 Globulin 2.9 Albumin/Globulin Ratio 1.4 TSH Prolactin 18.9 H Urine Color Urine Appearance Urine pH Ur Specific [place] Urine Protein Urine Glucose (UA) Urine Ketones Urine Occult Blood Urine Nitrate Urine Bilirubin Urine Urobilinogen Ur Leukocyte Esterase Urine RBC Urine WBC Ur Squamous Epith Cells Urine Bacteria Ur Culture Indicated? Salicylates < 1.0 U Opiates 300ng/mL cut Ur Oxycodone Screen Urine Methadone Screen Acetaminophen < 10 Ur Barbiturates Screen U Tricyclic Antidepress Ur Phencyclidine Scrn Ur Amphetamines Screen U Methamphetamines Scrn Ur MDMA Scrn (Ecstasy) U Benzodiazepines Scrn Urine Cocaine Screen U Marijuana (THC) Screen Ethyl Alcohol 111 H SARS-CoV-2 (PCR) 12/08/21 12/08/21 12/08/21 23:05 23:44 23:57 WBC RBC Hgb Hct MCV MCH MCHC RDW Plt Count Neut % (Auto) Lymph % (Auto) [place] % (Auto) Eos % (Auto) Baso % (Auto) Neut # (Auto) Lymph # (Auto) [place] # (Auto) Eos # (Auto) Baso # (Auto) Sodium Potassium Chloride Carbon Dioxide BUN Creatinine Estimated GFR BUN/Creatinine Ratio Glucose Lactate Calcium Total Bilirubin AST ALT Alkaline Phosphatase Total Protein Albumin Globulin Albumin/Globulin Ratio TSH 2.07 Prolactin Urine Color Yellow Urine Appearance Clear Urine pH 5.0 Ur Specific [place] 1.020 Urine Protein Negative Urine Glucose (UA) Negative Urine Ketones Trace H Urine Occult Blood Negative Urine Nitrate Negative Urine Bilirubin Negative Urine Urobilinogen 0.2 Ur Leukocyte Esterase Negative Urine RBC None seen Urine WBC None seen Ur Squamous Epith Cells 0-1 /hpf Urine Bacteria None seen Ur Culture Indicated? Cult not indicated Salicylates U Opiates 300ng/mL cut Ur Oxycodone Screen Urine Methadone Screen Acetaminophen Ur Barbiturates Screen U Tricyclic Antidepress Ur Phencyclidine Scrn Ur Amphetamines Screen U Methamphetamines Scrn Ur MDMA Scrn (Ecstasy) U Benzodiazepines Scrn Urine Cocaine Screen U Marijuana (THC) Screen Ethyl Alcohol SARS-CoV-2 (PCR) Negative 12/08/21 12/09/21 23:57 01:33 WBC RBC Hgb Hct MCV MCH MCHC RDW Plt Count Neut % (Auto) Lymph % (Auto) [place] % (Auto) Eos % (Auto) Baso % (Auto) Neut # (Auto) Lymph # (Auto) [place] # (Auto) Eos # (Auto) Baso # (Auto) Sodium Potassium Chloride Carbon Dioxide BUN Creatinine Estimated GFR BUN/Creatinine Ratio Glucose Lactate 1.5 Calcium Total Bilirubin AST ALT Alkaline Phosphatase Total Protein Albumin Globulin Albumin/Globulin Ratio TSH Prolactin Urine Color Urine Appearance Urine pH Ur Specific [place] Urine Protein Urine Glucose (UA) Urine Ketones Urine Occult Blood Urine Nitrate Urine Bilirubin Urine Urobilinogen Ur Leukocyte Esterase Urine RBC Urine WBC Ur Squamous Epith Cells Urine Bacteria Ur Culture Indicated? Salicylates U Opiates 300ng/mL cut Positive H Ur Oxycodone Screen Negative Urine Methadone Screen Negative Acetaminophen Ur Barbiturates Screen Negative U Tricyclic Antidepress Negative Ur Phencyclidine Scrn Negative Ur Amphetamines Screen Negative U Methamphetamines Scrn Negative Ur MDMA Scrn (Ecstasy) Negative U Benzodiazepines Scrn Positive H Urine Cocaine Screen Negative U Marijuana (THC) Screen Negative Ethyl Alcohol SARS-CoV-2 (PCR) Assessment & Plan Assessment & Plan narrative: This is a 76 year old male with PMH of afib, CAD, prior aortic dissection, chronic low back pain, insomnia, and alcohol use who presented after a fall. He is admitted for development of alcohol withdrawal. 1. alcohol withdrawal - low risk for severe withdrawal based on reported history. However I suspect he drinks more than he is currently stating and is quite unsteady and tremulous currently. - continue CIWA protocol with as needed ativan - PT/OT evaluations for chronic difficulty walking. 2. ground level fall - suspect some ataxia due to chronic alcohol use. Will get PT/OT evaluations 3. Paroxysmal atrial fibrillation - sinus rhythm on EKG with multiple PACs. Continue home medications 4. History of CAD and prior dissection - continue home medications 5. Chronic low back pain - suspect poorly controlled back pain is leading to his drinking somewhat. - continue oxycodone 10 mg prn. - monitor for respiratory symptoms 6. Insomnia - continue home trazodone 300 mg at bedtime with additional 100 mg prn. Code: Full as discussed with the patient, surrogate decision maker is the naila ent's I have utilized all available immediate resources to obtain, update, or review the patient's current medications. Time Spent With Patient Critical Care time: I spent a total of [] minutes of critical care time on this patient's care today; this time is exclusive of procedural time. Quality MIPS - Admit I confirm the patient?s Advance Care Plan is present, Code status is documented, Surrogate decision maker is in patient?s record [If Yes, STOP here]: Yes
[2021-12-09] MEDS: OXYCODONE IR 10 MG TABLET PO (15:00)
[2021-12-09] MEDS: METOPROLOL ER 50 MG TABLET 100 MG PO (15:00)
--- NOTE | 2021-12-09 15:28 | PC.NURSE ---
Pt arrived from ED at 1135 this a.m. SBP elevated 180's-190's, afebrile on RA. notified of htn and given 100 mg metoprolol po.He denies n/v, he is forgetful of the date. 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 He declines wanting a shower this afternoon, able to tolerate a regular diet. He is medicated for head, neck and back pain at 9/10 with prn oxycodone with good effect. CIWA score is a 5. requested several times for patient to call for assist when getting out of bed but refuses. IV site changed to new location per his request. Continuous monitoring
--- NOTE | 2021-12-09 15:50 | PT.IIE ---
Medical History (Last Reviewed 12/09/21 @ 13:50 by Rayo Sage DO) Achalasia Anginal pain Asthma Atrial fibrillation Cervical spinal stenosis Chronic obstructive pulmonary disease (10/23/16) COPD (chronic obstructive pulmonary disease) Coronary artery disease History of aortic dissection (~08/2007) Hypertension Ischemic cardiomyopathy Narcotic dependence Neck pain, chronic Ventricular bigeminy Physical Therapy Inpatient Evaluation/Re-Eval M1 PT/OT-IP Prior Functional Status Start: 12/09/21 16:24 Freq: NEEDED Status: Active Protocol: Document 12/09/21 15:50 AB (Rec: 12/09/21 16:40 AB [id number]) Medical Review Prior Functional Status Medical History Reviewed Yes Communication with confusion; able to make needs known Mobility and Gait pt stated that he is modified independent with all mobilities and ambulation without AD but occasionally uses a FWW or a SPC depending on what is convenient Social History Household Members spouse Number of Floors (Floors) 3 or More Floors Number of Stairs To Enter/Railing? pt lives on a split level house; 5 steps B rails to the deck; stated 14 steps with 1 rail to the bedroom level but pt is not sure and does remember which side is the rail. pt with confusion Home Environment High Toilet,Tub/Shower Home Equipment Front Wheel Walker,Straight Cane,Grab Bars Near Toilet M2 PT-IP Current Condition Start: 12/09/21 16:24 Freq: NEEDED Status: Active Protocol: Document 12/09/21 15:50 AB (Rec: 12/09/21 16:40 AB [id number]) Physical Therapy Current Condition Current Condition Evaluation Date 12/09/21 Treatment Diagnosis back pain; difficulty in walking Onset Date 12/09/21 M3 PT-IP Subjective Start: 12/09/21 16:24 Freq: NEEDED Status: Active Protocol: Document 12/09/21 15:50 AB (Rec: 12/09/21 16:40 AB [id number]) Subjective Physical Therapy Visit Type Type Initial Evaluation Visit Start Time 15:50 Visit Stop Time 16:20 Total Visit Minutes 30 Number of COLOR EXPERT Visits 0 Therapy Pain Assessment Pain Present Pain Present Pain Reported Location Back Scale Used c/o increase back pain but pain scale not stated Pain Behaviors Guarding,Restlessness Pain Management Techniques Distraction,Modification of Treatment,Re-positioning M4 PT-IP Mobility and Gait Start: 12/09/21 16:24 Freq: NEEDED Status: Active Protocol: Document 12/09/21 15:50 AB (Rec: 12/09/21 16:40 AB [id number]) PT-Bed Mobility Assessment Supine to Sit Supine to Sit Standby Assistance Sit to Supine Sit to Supine Standby Assistance PT-Transfer Assessment Sit to and From Stand Sit to and from Stand Standby Assistance Equipment Transfer Assistive Device None,Front Wheeled Walker Orthotic/Prosthetic Devices or Brace: No Transfers Transfer Destination Chair Transfer Technique ambulated Transfer Ability Level of Assist Standby Assistance,Contact Guard Assistance,1 Person Assistance,Use of Upper Extremities Comments Mobility Comments pt with confusion and impulsive. pt trying to sit on the EOB with bed rail up. BP: 162/86 cued pt for safety. c/o increase back pain. SBA for bed mobility and sit to stand. ambulated without AD SBA to CGA to the window bench with unsteady gait. instructed to sit on the bench . pt rested. Assessed ambulation using FWW SBA and cues back to EOB. pt with steadier gait but still requires cues for safety. completed sit to supine SBA. positioned pt in bed. call light and table placed within reach. Gait Assessment Gait Gait Assistance Required: Standby Assistance,Contact Guard Assist Distance (Feet) 10 Able to Maintain Weight Bearing Status Yes During Gait Assistive Devices Assistive Device Gait Belt,Front Wheeled Walker Orthotic/Prosthetic Devices or Brace: No Gait Deviations General Gait Pattern Ataxic,Decreased Stride Length ,Decreased Feet Clearance,Step -to Gait Factors Limiting Gait Function Factors Limiting Gait Function Decreased Activity Tolerance, Decreased Strength,Difficulty Following Directions,Limited Range of Motion,Pain,Poor Balance,Poor Safety Awareness PT-Balance Assessment Sitting Balance and Reactions Static Sitting Balance Ability Good Dynamic Sitting Balance Ability Good Standing Balance and Reactions Static Standing Balance Ability Fair Dynamic Standing Balance Ability Fair Device Used without AD M5 PT-IP Objective Assessments Start: 12/09/21 16:24 Freq: NEEDED Status: Active Protocol: Document 12/09/21 15:50 AB (Rec: 12/09/21 16:40 AB [id number]) Orientation Orientation/Cognition Level of Alertness Confusional State Orientation Name Safety Awareness Decreased Safety Awareness Memory Description Short Term Impaired Gross Range of Motion Lower Extremity ROM Assessment Within Functional Limits Strength Lower Extremity Strength Hip 3+/5 Knee 3+/5 Muscle Tone Muscle Tone WNL No M6 PT-IP Treatment Start: 12/09/21 16:24 Freq: NEEDED Status: Active Protocol: Document 12/09/21 15:50 AB (Rec: 12/09/21 16:40 AB [id number]) Physical Therapy Treatment Education Education Provided Safety M7 PT-IP Assessment and Plan Start: 12/09/21 16:24 Freq: NEEDED Status: Active Protocol: Document 12/09/21 15:50 AB (Rec: 12/09/21 16:40 AB [id number]) PT Summary Assessment and Plan Potential Rehabilitation Potential Good Status of Condition at Evaluation Evolving Summary Impairments Pain,ROM,Strength,Balance, Coordination,Sensation,Tone, Cognition,Bed Mobility, Transfers,Gait,Activity Tolerance Assessment Summary pt with c/o back pain and has h/o alcohol abuse affecting mobility. pt requiring SBA to CGA with mobility but with unsteady gait and pt is very impulsive with decrease safety awareness. pt has his spouse to assist him as needed. will continue to assess progress. Goals Bed Mobility Goal Independent Transfer Goal Independent,Front Wheeled Walker Gait Goal Independent,Front Wheel Walker Gait Distance 200 Other Goals improve ambulation without AD SBA 100 ft up/down 14 steps 1 rail SBA Days to Meet Goals 10 Frequency of Treatment Frequency Of Treatment Once a Day Treatment Plan Physical Therapy Treatment Plan Bed Mobility Training,Transfer Training,Gait Training, Therapeutic Exercise,Balance Retraining,Discharge Planning, Hot or Cold Pack,Neuromuscular Re-ed,Coordination Retraining ,Manual Therapy Recommendations To Nursing Amount of Assist Needed 1 Person Assist Discharge Recommendations PT Discharge Recommendations Home with Assistance,Home Health,Outpatient PT Transportation Needs at Discharge Private Vehicle
--- NOTE | 2021-12-09 16:32 | OT.IPNOTE ---
Attempted OT eval and pt refused at this time as wanting a breathing treatment, notified pt's nurse. To see pt tomorrow.
[2021-12-09] MEDS: SODIUM CHLORIDE 0.9% FLUSH 10 ML IV ×3 (19:42→21:24)
[2021-12-09] MEDS: TRAZODONE 100 MG TABLET 300 MG PO (21:20)
[2021-12-09] MEDS: LORazepam 1 MG TABLET PO (22:33)
[2021-12-09] MEDS: chlordiazePOXIDE 25 MG CAPSULE PO (22:37)
[2021-12-09] MEDS: methocarbamoL 500 MG TABLET PO (22:38)
--- NOTE | 2021-12-09 22:56 | PC.NURSE ---
Addendum entered by Dea Jain R.N. 12/10/21 06:00: Currently asleep after falling asleep around 0400. Will hold on drawing labs until patient awake. Addendum entered by Dea Jain R.N. 12/10/21 03:22: Patient now awake and more confused. Does not remember he is in the hospital but when reminded of situation acknowledges same. Assisted to go to bathroom but patient is very unsteady on his feet but refuses to use walker. Is difficult to redirect. Complains of back pain but unable to quantify severity. Asking where is. Wondering when can I go home. Wants to get out of bed to go to the living room. CIWA is 7 but difficult to assess as patient not always responding to questions asked. When talking to RN has eyes closed. Initially refused to have vital signs checked but later agreeable. Requesting breathing treatment but does not appear to be in any distress; RT contacted. Addendum entered by Dea Jain R.N. 12/10/21 01:57: Patient slept until 0000 and then awake, restless and complaining of 9/10 low back pain so medicated with oxycodone. Up to chair for brief period of time, tossing and turning in bed but cooperative with staff. Warm blanket applied to back and provided massage after which patient resettled and has remained asleep since approximately 0100. Telemetry remains off at this time. Original Note: Patient agitated at shift change and assessed with CIWA score of 17 so was medicated with IV Ativan after which patient fell asleep. Then at 2123 patient again agitated, impulsive and stating he needs help; CIWA score assessed as 12 so was again medicated with IV Ativan as well as his scheduled Trazadone. Patient again fell asleep but was awake around 2214 and got out of bed on his own and was found on floor by DIGITAL MARKETER trying to get up. When RN arrived in room patient was sitting on edge of bed. He was able to perform ROM with all extremities and no new injuries were noted. Coordinator, Zoë, informed as well as Harvinder ORTEGA. Patient then pulled off telemetry and pulled out IV. States he needs help and that he wants to go to the ER. Is mostly oriented although cannot express specific reason he is in the hospital. Refusing to remain in bed so got up in chair but then got out of chair and sat on window seat. Initially refused to have IV restarted. States he wants his Ativan. CIWA was 18 and patient was medicated with po Ativan. Received orders also for Librium and Robaxin which patient agreeable to take. Allowed RN to restart IV but not to replace telemetry leads. Is currently asleep with 1:1 supervision
--- NOTE | 2021-12-09 22:56 | PC.NURSE ---
Pt had a fall @2200, was checked out by RN and Hospitalist and Nurse coordinator no new marking from fall. Pt stated he had some hip pain and then PT pulled IV out of his arm. Pt is very impulsive
[2021-12-10] VITALS (21 sets, daily range): BP systolic 101–137; BP diastolic 51–73; PULSE 62–90; RESP 15–20; TEMP 36.6–37.1; O2SAT 92–97
[2021-12-10] MEDS: OXYCODONE IR 10 MG TABLET PO ×3 (00:04→21:27)
[2021-12-10] MEDS: ACETAMINOPHEN 325 MG TABLET 975 MG PO ×3 (03:59→21:47)
[2021-12-10] MEDS: ALBUTEROL 2.5 MG/3 ML NEB (ADULT) INH ×2 (04:10→13:46)
[2021-12-10] MEDS: LORazepam 2 MG/ML INJ IV ×7 (07:39→23:27)
--- NOTE | 2021-12-10 07:42 | PC.NURSE ---
Addendum entered by Oksana Osorio R.N. 12/10/21 19:34: IV dose of Phenobarbital effective for Pt for approx 1 hr, up from bed, nearly falling swinging at staff attempting to keep from falling, Pt is being ambulated in viveros@ 1840 with 2 stff members 1 is with a wheel chair to assist patient if needed. CIWA 22, given 2 additional Mg IV Ativan, 1910-Resting with imrpoved CIWA score, addditinal dose of PHenobrabital odered, not auth by pharmacy at present. Report to oncoming RN. Staffing does not allow for 1:1 supervision for oncoming shift. BA remains active. Artist Model aware. When awake Patient is impulsive and agitated. Addendum entered by Oksana Osorio R.N. 12/10/21 17:57: 1630-Pt continues with increased confusion, and imuplsivity. updated that dc plan is not safe today and we weill reevaluate in the am. CIWA climbing >18, and Pt is activily halluciating. You demons are here to kill me, you are cutting my stomach open with the knives Reoriented. Medicated per Emar. 1720-Dr Sage at bedside and IV Phenobarbital ordered. Await from Pharmacy. Pt continues screaming at top of lungs, I want to ! [facility] will not take me! 1:1 supervision continues. Frequently 2-3:1 staff assist to keep patient from jumping from bed or throwing FWW at staff. Room is dark and stimuli is decreased in room,. Addendum entered by Oksana Osorio R.N. 12/10/21 16:26: 1620-CIWA remains >13 medicated per emar and zofran given for nausea. SENA and back remain painful. Cooperative with care, impulsive. Addendum entered by Oksana Osorio R.N. 12/10/21 13:53: Add-1350- Pt has begun to argue with , SG climbing, refusing to take Ativan, now increasingly accusatory about medications she had requested Pt take with this RN with AM med pass, including Ativan for increased CIWA scores. He is clearly having some type of reaction to your medication. Education given for ETOH s/sx as well as plan of care that includes safe taper of benzodiazapines for detox. He doesn't even drink, except just before coming in to the ER Pt will need trazadone in hand prior to d/c home or I wont take him. Discussed that it seems as though the DC plan is not appropriate given the patients current change in status. If is yelling in frustration at patient, clearly this is not the ideal time to add more stress onto the patient and with a patient confused, argumentative, impulsive and unsafe with ambulation. YONATHAN Treviño at bedside with assistance for safe DC planning. Currently CIWA is 18 and increasing with interactions with in room. now stating, He wont be taking any ativan he doesn't need it for any withdrawl, he is getting overmedicated. dairy nutritionist Iman in at this time to assist away from Patient, as Pt is requesting medication for his withdrawl. I feel like shit, please will you make this feel better, I am going to freak out any second Per orders, Ativan given for CIWA 18. Pt tearful and calmly sits with this RN, I know this has helped me, and I just need to rest and I will be fine 1430-Pt is resting even resps. 1:1 supervision Addendum entered by Oksana Osorio R.N. 12/10/21 08:01: 0750- arrived, very distraught about Pt confusion and agitation. Does not appear to understand that these symptoms are likely r/t ETOH, she has repeatedly voiced concern about patient receiving narcotics for pain and ativan. Will continue to educate with and Pt. Pt is sleeping comfortably at present, agreeable to labs and vitals with reapproach. Original Note: Am shift Arrived to assume care of Pt, who was yelling at INSTRUCTOR HAIRSPRING, Why are you at my house!? Where is Cristel? Reoriented to Hospital and POC. Pt is scoring CIWA scale, 22. Medicated with IV Ativan. Pt agreeable and does appear to fatigue as falling asleep while assessing Pt.
[2021-12-10] MEDS: OXYCODONE IR 5 MG TABLET PO (10:01)
[2021-12-10] MEDS: FUROSEMIDE 40 MG TABLET PO (10:03)
[2021-12-10] MEDS: chlordiazePOXIDE 25 MG CAPSULE PO ×2 (10:42→21:26)
[2021-12-10] MEDS: MULTIVITAMIN 1 TABLET 1 TAB PO (11:43)
[2021-12-10] MEDS: methocarbamoL 500 MG TABLET PO ×2 (11:59→23:21)
--- NOTE | 2021-12-10 12:12 | PT.IPTN ---
Physical Therapy Treatment Note M2 PT-IP Current Condition Start: 12/09/21 16:24 Freq: NEEDED Status: Active Protocol: Document 12/10/21 11:54 SP (Rec: 12/10/21 15:50 SP [id number]) Physical Therapy Current Condition Current Condition Evaluation Date 12/09/21 Treatment Diagnosis back pain; difficulty in walking Onset Date 12/09/21 M3 PT-IP Subjective Start: 12/09/21 16:24 Freq: NEEDED Status: Active Protocol: Document 12/10/21 11:54 SP (Rec: 12/10/21 15:50 SP [id number]) Subjective Physical Therapy Visit Type Type Treatment Note Visit Start Time 11:54 Visit Stop Time 12:12 Total Visit Minutes 27 Notes Pt required split tx due to LBP and low activity tolerance . MANAGER OF REVENUE requested CGT, unavailable downstairs. Pt seen: [id number] and [id number]. completed caregiver training including donning gait belt and providing assist and cuing required throughout tx. reported has ramp at home to enter installed after last admission, pt doesn't need to do the many stairs to go to laundry downstairs. Number of MANAGER OF REVENUE Visits 1 Physical Therapy Visit Comments Patient Comments Pt more agreeable to working with therapy when returned for caregiver training and was premedicated upon returned. Therapy Pain Assessment Pain Present Pain Present Pain Reported Location Back Scale Used not quantified. Stated less when returned 2nd attempt. Description Spasm,With Movement Pain Behaviors Facial Grimacing,Restlessness Pain Management Techniques Distraction,Modification of Treatment,Re-positioning, Timing of Activity with Medications M4 PT-IP Mobility and Gait Start: 12/09/21 16:24 Freq: NEEDED Status: Active Protocol: Document 12/10/21 11:54 SP (Rec: 12/10/21 15:50 SP [id number]) PT-Transfer Assessment Sit to and From Stand Sit to and from Stand Standby Assistance,Contact Guard Assistance,1 Person Assistance,Use of Upper Extremities Equipment Transfer Assistive Device None,Front Wheeled Walker Orthotic/Prosthetic Devices or Brace: No Transfers Transfer Destination Chair Transfer Technique ambulated w/ FWW Transfer Ability Level of Assist Contact Guard Assistance,1 Person Assistance,Use of Upper Extremities Comments Mobility Comments Pt impulsive initially when arrived, pt reported having alot back pain agreeable to short distance gait. Pt requires CGA STS and gait to sink and back only before I need to go sit, my back is hurting more, max cues for body closer to FWW during turns, tends to quick sway walker around him w/ 1 foot outside, cued for back up fully and proper hand placement throught out tx. MANAGER OF REVENUE requested CGT with , AIR BRUSH DECORATOR and pt were calling , downstairs at cafeteria. MANAGER OF REVENUE returned after in room. donned gait belt, CGA STS and gait w/ FWW around room into hallway end and back approx 200 ft, provided CGA and cues for closer to FWW , taller posture w/ slower pacing. Pt returned to chair with call light and all needs in reach before left. MANAGER OF REVENUE suggested HHPT to improve strength and balance for safe functional mobility. Pt is ok to return home with to assist him when medically cleared. Gait Assessment Gait Gait Assistance Required: Standby Assistance,Contact Guard Assist Distance (Feet) 200 Able to Maintain Weight Bearing Status Yes During Gait Assistive Devices Assistive Device Gait Belt,Front Wheeled Walker Orthotic/Prosthetic Devices or Brace: No Gait Deviations General Gait Pattern Antalgic,Decreased Stride Length,Decreased Feet Clearance,Flexed Trunk,Wide Based Gait Factors Limiting Gait Function Factors Limiting Gait Function Decreased Activity Tolerance, Decreased Strength,Difficulty Following Directions,Limited Range of Motion,Pain,Poor Balance,Poor Safety Awareness Comments Gait Comments see mobility comments. Stair Climbing Assessment Comments Stair Climbing Comments not need assess, ramp entry and no need to go downstairs, per . PT-Balance Assessment Sitting Balance and Reactions Static Sitting Balance Ability Normal Dynamic Sitting Balance Ability Good Standing Balance and Reactions Static Standing Balance Ability Good Dynamic Standing Balance Ability Fair Device Used FWW M5 PT-IP Objective Assessments Start: 12/09/21 16:24 Freq: NEEDED Status: Active Protocol: Document 12/09/21 15:50 AB (Rec: 12/09/21 16:40 AB [id number]) Orientation Orientation/Cognition Level of Alertness Confusional State Orientation Name Safety Awareness Decreased Safety Awareness Memory Description Short Term Impaired Gross Range of Motion Lower Extremity ROM Assessment Within Functional Limits Strength Lower Extremity Strength Hip 3+/5 Knee 3+/5 Muscle Tone Muscle Tone WNL No M6 PT-IP Treatment Start: 12/09/21 16:24 Freq: NEEDED Status: Active Protocol: Document 12/10/21 11:54 SP (Rec: 12/10/21 15:50 SP [id number]) Physical Therapy Treatment Education Education Provided Safety Other Treatments Other Treatment Performed Discussed can use racquetball over back muscles (not spine/ bones) to paraspinals/ gluts against wall and or rolling pin to quad/ ITB to decrease muscle tightness for self massage, verbalized understanding. M7 PT-IP Assessment and Plan Start: 12/09/21 16:24 Freq: NEEDED Status: Active Protocol: Document 12/10/21 11:54 SP (Rec: 12/10/21 15:50 SP [id number]) PT Summary Assessment and Plan Potential Rehabilitation Potential Good Status of Condition at Evaluation Evolving Summary Impairments Pain,ROM,Strength,Balance, Coordination,Sensation,Tone, Cognition,Bed Mobility, Transfers,Gait,Activity Tolerance Progress Towards Goals Progressing Toward Goals,Slow Progress due to Pain,Slow Progress due to Activity Tolerance Assessment Summary Pt continues report LBP not quantified, pt more agreeable to work with MANAGER OF REVENUE after arrived. CGA throughout tx for safety proper use FWW and body more upright mechanics, Max cues for proper hand placement to decrease quick flop into the chair, carried over cuing. Pt impulsive, not good carry through. Pt is ok to return home with to assist 01/03 him when medically cleared. Recommending HHPT for strength , balance for increase functional independence, pt and agreeable. Goals Bed Mobility Goal Independent Transfer Goal Independent,Front Wheeled Walker Gait Goal Independent,Front Wheel Walker Gait Distance 200 Other Goals improve ambulation without AD SBA 100 ft up/down 14 steps 1 rail SBA Days to Meet Goals 10 Frequency of Treatment Frequency Of Treatment Once a Day Treatment Plan Physical Therapy Treatment Plan Bed Mobility Training,Transfer Training,Gait Training, Therapeutic Exercise,Balance Retraining,Discharge Planning, Hot or Cold Pack,Neuromuscular Re-ed,Coordination Retraining ,Manual Therapy Other Recommendations and Next Treatment LE ex, standing balance, gait Focus w/ FWW. Recommendations To Nursing Amount of Assist Needed 1 Person Assist Discharge Recommendations PT Discharge Recommendations Home with Assistance,Home Health,Outpatient PT Transportation Needs at Discharge Private Vehicle
[2021-12-10] MEDS: FOLIC ACID 1 MG TABLET PO (12:13)
--- NOTE | 2021-12-10 13:14 | CM.DANOTE ---
Patient is a 76 yo male who was admitted on 12/09/21 for Back Pain/GLF. Pt has [facility] for insurance and his PCP is Romi Tavera. EMR was reviewed. Per MD, pt admitted after GLF after ETOH use last night and hypertensive with n/v. Pt last admitted a little over a month ago on 10/09/21 for Abd Pain/Vertigo and was able to d/c home with spouse and no needs. Per RN, pt's CIWA has ranged from 22-7 but per MD may be partly due to pt's impulsivity, chronic back pain, lack of sleep contributing to CIWA scores and pt seems to be under-reporting ETOH daily use. Per PT, pt quite impulsive and was confused overnight but seems to be clearing from the Ativan this morning. Recommending home with spouse assist 01/03 and HH vs outpt PT. SW met bedside with pt and spouse and explained role and they confirm they still live at home in [place] and is independent at baseline and drives. DPOA is his spouse. Pt still denies any hx of HH or SNF. Pt states it's been a year and he finally feels his ankle is back to working condition although he has chronic back pain and may be having another back surgery with Dr. Barbosa with [facility] in the near future and takes Tylenol 3 at baseline for chronic pain. 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 Spouse confirms that pt ran out of his Trazadone for sleep and therefore drank hard alcohol last night to help him sleep after two days of insomnia/pain and they deny and ETOH concerns or needs. SW discussed HH services and frequency and spouse and pt currently decline the need for HH and state we usually manage quite well at home independently. Plan: SW to follow closely for further PT towards confirming safe d/c home with spouse via POV and any further identified discharge planning needs. CELESTINA Stark Discharge Planning/Care Management CM Discharge Assessment Start: 12/10/21 13:09 Freq: Status: Active Protocol: Document 12/10/21 13:11 BF (Rec: 12/10/21 13:14 BF [id number]) Discharge Planning Assessment Assigned Conveyor Maintenance Mechanic CELESTINA Treviño DPOA/Assigned Designee Name spouse Cristel Contact Information [phone] Advance Directives? No Advance Directives on File No History Provided By Patient,Significant Other, Medical Record Has Patient been admitted in last 30 No days? Comment last admitted month and a half ago in October 2021 for Vertigo type symptoms Prior Living Arrangements House Household Members spouse Type of transporation used prior to Drives own vehicle admit Independent with ADL's Yes Is patient alert and oriented? Yes: may be starting to have short term memory loss Caregiver for Another No Comment Pt states that he has DME in the home from the last time he had knee surgery, and then last year ankle surgery Patient/Family Preference Home with Home Health,OP PT Therapy Comment Per PT, HH vs outpt Barriers to Discharge No Comment Some issues at home with ' s anxiety, pt may not be accurately disclosing the quantity of ETOH use at home Discharge Plan Home Transportation Arrangement Spouse will transport. Additional Comment No referrals initiated at this time, but will see how he does with therapy team. Whiteboard Updated in Patient Room with Yes name and ext. # of Conveyor Maintenance Mechanic Review Status In Process Please Provide Date Initial DC 12/10/21 Assessment Was Performed Next Review Type Continued Stay Review
--- NOTE | 2021-12-10 14:29 | OT.IPNOTE ---
Per nurse, pt just given meds to allow him to rest and sleep. To check on pt for OT eval if still here tomorrow.
--- NOTE | 2021-12-10 15:56 | DIET.CONS ---
Dietary Consultation Note Admission Date: 12/09/2021 08:04 RD attempted interview this afternoon r/t etoh, pt sleeping soundly. Pts POs 100% this hospital stay c BMI 25. Electronically Signed by: Tracy Grajeda 12/10/21 15:56 Clinical Dietitian [address] [address]
[2021-12-10] MEDS: LORazepam 1 MG TABLET PO (16:00)
[2021-12-10] MEDS: ONDANSETRON 4 MG/2 ML INJ IV (16:24)
--- NOTE | 2021-12-10 16:53 | PM.PN.1 ---
Subjective Subjective Date Patient Seen: 12/10/21 Interval history: This is a 76-year-old male admitted with alcohol withdrawl Exam Vital Signs (past 8 hours): - 12/10/21 10:03 12/10/21 11:00 12/10/21 12:14 Temperature 98.4 F Pulse Rate 62 77 78 Respiratory Rate 18 18 Blood Pressure 101/55 L 113/56 L Pulse Oximetry 96 12/10/21 13:47 12/10/21 15:00 Temperature 98.3 F Pulse Rate 77 77 Respiratory Rate 20 16 Blood Pressure 108/59 L Pulse Oximetry 95 96 Oxygen Delivery Method Room Air Oxygen Flow Rate 0 Narrative Exam Narrative: General:? Patient is well developed and well nourished, agitated when discussion needing to possibly stay in the hospital. HEENT:? Normocephalic,small abrasion to nose, extraocular muscles intact, oral pharynx is clear and mucous membranes are moist. Neck: supple and symmetric, trachea is midline, no cervical adenopathy. Negative for JVD Chest:? Normal AP diameter and contour without kyphoscoliosis, no tachypnea, equal chest rise bilaterally. Lungs:? CTA b/l no wheezing rhonchi or rales. Cardio:?RRR no m/r/g. Abdomen: S NT ND. Musculoskeletal:? Muscle strength and tone are equal within normal limits, no deformity. Back midline incision well appearing and well healed. Extremities: No edema or joint effusions. No cyanosis or clubbing. Skin:? Pale,? Warm to touch,dry and intact without rashes, ulcerations or petechiae.? Neuro:? Alert and orientated x3,?slightly tangential, agitated and demanding/frustrated. Mild tongue fasciculations and tremulousness. Objective Labs Result Diagrams: 12/08/21 23:05 12/08/21 23:05 [facility] Medical History Achalasia Anginal pain Asthma Atrial fibrillation Cervical spinal stenosis Chronic obstructive pulmonary disease (10/23/16) COPD (chronic obstructive pulmonary disease) Coronary artery disease History of aortic dissection (~08/2007) Hypertension Ischemic cardiomyopathy Narcotic dependence Neck pain, chronic Ventricular bigeminy Surgical History H/O arthroscopic knee surgery (11/15/17) History of arthroplasty of right knee History of bilateral total hip arthroplasty History of cardiac cath (~03/2014) History of esophageal surgery History of incision and drainage (~2016) History of prior ablation treatment (~03/2017) History of surgery Hx of cholecystectomy Hx of hernia repair Hx of sinus surgery S/P CABG x 3 (~08/2007) S/P cervical spinal fusion S/P lumbar fusion Family History (Updated 12/09/21 @ 13:50 by Rayo Sage DO) Mother Stroke Father Hypertension Social History household members: spouse Smoking Status: Former smoker alcohol intake: current substance use type: does not use Assessment & Plan Assessment & Plan narrative: This is a 76 year old male with PMH of afib, CAD, prior aortic dissection, chronic low back pain, insomnia, and alcohol use who presented after a fall.? He is admitted for development of alcohol withdrawal. 1. alcohol withdrawal ?- low risk for severe withdrawal based on reported history. However I suspect he drinks more than he is currently stating. He is slightly improved today but still with high CIWA scores and unsteady gait. ?- continue CIWA protocol with as needed ativan ?- PT/OT evaluations for chronic difficulty walking. Unsafe discharge today. Will continue to work with PT prior to discharge home. 2. ground level fall ?- suspect some ataxia due to chronic alcohol use. appreciate PT/OT. 3. Paroxysmal atrial fibrillation ?- sinus rhythm on EKG with multiple PACs. Continue home medications 4. History of CAD and prior dissection ?- continue home medications 5. Chronic low back pain ?- suspect poorly controlled back pain is leading to his drinking somewhat. ?- continue oxycodone 10 mg prn. ?- monitor for respiratory symptoms 6. Insomnia ?- continue home trazodone 300 mg at bedtime with additional 100 mg prn. Code:? Full as discussed with the patient, surrogate decision maker is the patient's I have utilized all available immediate resources to obtain, update, or review the patient's current medications.? Time Spent With Patient Critical Care time: I spent a total of [] minutes of critical care time on this patient's care today; this time is exclusive of procedural time.
[2021-12-10] MEDS: PHENobarbital 65 MG/ML VIAL IV ×2 (18:11→19:56)
[2021-12-10] MEDS: SODIUM CHLORIDE 0.9% FLUSH 10 ML IV (20:59)
[2021-12-10] MEDS: TRAZODONE 100 MG TABLET 300 MG PO (21:27)
[2021-12-11] VITALS (8 sets, daily range): BP systolic 132–163; BP diastolic 61–81; PULSE 84–95; RESP 15–19; TEMP 36.4–36.7; O2SAT 93–95
[2021-12-11] MEDS: OXYCODONE IR 10 MG TABLET PO (03:58)
[2021-12-11] MEDS: LORazepam 2 MG/ML INJ IV (04:12)
--- NOTE | 2021-12-11 06:22 | PC.NURSE ---
Pt is confused and at times hallucinating, Pt gets combative and yells out, needs a 1-1 because he is very impulsive and is a high fall risk.
[2021-12-11] MEDS: methocarbamoL 500 MG TABLET PO (06:26)
[2021-12-11 07:47] LABS: Add Manual Diff / Slide Review NO; Basophils Absolute Auto 100 /uL (0-100); Basophils Percent Auto 0.8 % (0-2); Eosinophils Absolute Auto 200 /uL (0-450); Eosinophils Percent Auto 3.2 % (2-4); Hematocrit 39.6 % (41-53); Hemoglobin 13.7 g/dL (13.5-17.5); Lymphocytes Absolute Auto 1500 /uL (1100-4500); Lymphocytes Percent Auto 22.7 % (25-40); Mean Corpuscular HGB Conc 34.6 % (30-36); Mean Corpuscular Hemoglobin 31.8 PG (26-34); Mean Corpuscular Volume 91.9 fL (80-100); Monocytes Absolute Auto 800 /uL (0-900); Monocytes Percent Auto 11.9 % (3-14); Neutrophils Absolute Auto 4100 /uL (1500-7000); Neutrophils Percent Auto 61.4 % (50-75); Platelet Count 188 X10^3/uL (150-400); Red Blood Cell Count 4.31 X10^6/uL (4.5-5.9); Red Cell Distribution Width 13.3 % (11.6-14.8); White Blood Cell Count 6.7 X10^3/uL (4.5-11.0)
[2021-12-11 07:58] LABS: Alanine Aminotransferase 29 IU/L (<50); Albumin 3.6 g/dL (3.5-5.0); Albumin Globulin Ratio 1.4 (1.0-2.8); Alkaline Phosphatase 50 U/L (38-126); Aspartate Aminotransferase 26 IU/L (17-59); BUN Creatinine Ratio 24.3 (6-22); Bilirubin Total 1.4 mg/dL (0.2-1.3); Blood Urea Nitrogen 18 mg/dL (9-20); Calcium 8.2 mg/dL (8.4-10.2); Carbon Dioxide 32 mmol/L (22-32); Chloride 103 mmol/L (98-107); Estimated Glomerular Filt Rate > 60 mL/min (>60); Globulin 2.5 g/dL (1.7-4.1); Glucose 123 mg/dL (80-110); HEMOLYSIS < 15 (0-50); Magnesium 2.1 mg/dL (1.6-2.3); Potassium 3.8 mmol/L (3.4-5.1); Sodium 137 mmol/L (137-145); Total Protein 6.1 g/dL (6.3-8.2)
[2021-12-11] MEDS: METOPROLOL ER 50 MG TABLET 100 MG PO (09:44)
[2021-12-11] MEDS: MULTIVITAMIN 1 TABLET 1 TAB PO (09:44)
[2021-12-11] MEDS: FOLIC ACID 1 MG TABLET PO (09:44)
[2021-12-11] MEDS: chlordiazePOXIDE 25 MG CAPSULE PO (09:44)
[2021-12-11] MEDS: THIAMINE 100 MG TABLET PO (09:44)
[2021-12-11] MEDS: lisinopriL 10 MG TABLET PO (09:44)
[2021-12-11] MEDS: FUROSEMIDE 40 MG TABLET PO (09:45)
--- NOTE | 2021-12-11 10:10 | P.DS_ITS ---
History of Present Illness History of Present Illness Date Patient Seen: 12/11/21 Time Patient Seen: 10:10 Chief complaint: Back Pain Narrative: This is a 76 year old male with PMH of afib, CAD, prior aortic dissection, chronic low back pain who presented after a fall. He had been drinking last night when he stumbled and fell forward, striking his nose. He denied loss of consciousness and he had no nausea or vomiting, chest pain, palpitations, shortness of breath. In the emergency room, the patient was hypertensive, with nausea and vomiting that was reportedly intractable. The patient states that he did drink yesterday evening, he does not think that he drinks that much. He did not further quantify how much he drinks every day when asked directly. He denies any shaking or withdrawal symptoms when he stops drinking, and he denies any prior seizures from alcohol withdrawal. He states that he ran out of trazodone and had not slept in 2 days at home, and this is why he drank yesterday evening. In the emergency room, the patient was given phenobarbital with some improvement in his symptoms, he did remain more hypertensive with nausea and vomiting but this improved with Ativan that was given in the emergency room. It also appears that he had been on clonidine recently from his PCP. Initial laboratory evaluation was unremarkable, urinalysis was unremarkable, urine drug screen was positive for opiates and benzodiazepines. Alcohol level was 111. COVID-19 testing was negative. Patient was admitted for further management of alcohol withdrawal Discharge Providers Provider Date of admission: 12/09/21 08:04 Discharge Date: 12/11/21 Primary care physician: Romi Tavera MD Consults: 12/09/21 12:38 Consult to Dietitian, Adult Routine Comment: Reason For Exam: based on admit nutrition assessment 12/09/21 13:57 Consult to Occupational Therapy Evaluate & Treat Comment: Physician Instructions: Evaluate and treat Consult to Physical Therapy Evaluate & Treat Comment: Physician Instructions: Evaluate and Treat Discharge provider: Rayo Sage DO Summary Hospital Course Discharge Diagnosis: Please see hospital course by problem list noted below: Hospital Course: This is a 76 year old male with PMH of afib, CAD, prior aortic dissection, chronic low back pain, insomnia, and alcohol use who presented after a fall.? He was admitted for development of alcohol withdrawal. 1. alcohol withdrawal ?- low risk for severe withdrawal based on reported history. However I suspect he drinks more than he is currently stating. He had high CIWA scores, possibly due to confounding behavior / aggression. He was treated with librium, ativan as needed and some phenobarbital with improvement. He was less agressive on the day of discharge and much less tremulous with improved gait. He was discharged home. He declined alcoholic cessation resources at this time. 2. ground level fall ?- suspect some ataxia due to chronic alcohol use. appreciate PT/OT evaluations, he is safe for discharge home at this time. He had no injuries as a result of his fall. 3. Paroxysmal atrial fibrillation ?- sinus rhythm on EKG with multiple PACs. Continued home medications 4. History of CAD and prior dissection ?- continued home medications 5. Chronic low back pain ?- suspect poorly controlled back pain is leading to his drinking somewhat. ?- continue oxycodone 10 mg prn, sent a 7 day prescription for the patient on discharge. 6. Insomnia ?- continue home trazodone 300 mg at bedtime with additional 100 mg prn. Prescription was sent as well as the patient states he was out. He was encouraged to follow up with his PCP for continued medications. Time Spent with Patient Time spent: Greater than 30 minutes Exam Vital Signs (past 8 hours): - 12/11/21 03:00 12/11/21 03:40 12/11/21 04:11 Temperature 98.1 F Pulse Rate 95 H Respiratory Rate 15 Blood Pressure 132/61 Pulse Oximetry 94 94 93 12/11/21 04:42 12/11/21 08:00 12/11/21 09:44 Temperature 97.6 F Pulse Rate 85 86 Respiratory Rate 17 19 Blood Pressure 163/81 H 163/81 H Pulse Oximetry 94 Oxygen Delivery Method Room Air Oxygen Flow Rate 0 Narrative Exam Narrative: General:? Patient is well developed and well nourished, more pleasant today HEENT:? Normocephalic,small abrasion to nose, extraocular muscles intact, oral pharynx is clear and mucous membranes are moist. Neck: supple and symmetric, trachea is midline, no cervical adenopathy. Negative for JVD Chest:? Normal AP diameter and contour without kyphoscoliosis, no tachypnea, equal chest rise bilaterally. Lungs:? CTA b/l no wheezing rhonchi or rales. Cardio:?RRR no m/r/g. Abdomen: S NT ND. Musculoskeletal:? Muscle strength and tone are equal within normal limits, no deformity. Back midline incision well appearing and well healed. Extremities: No edema or joint effusions. No cyanosis or clubbing. Skin:? Pale,? Warm to touch,dry and intact without rashes, ulcerations or petechiae.? Neuro:? Alert and orientated x3,?slightly tangential, no tongue fasciculations or tremulousness today. Objective Labs Result Diagrams: 12/11/21 07:26 12/11/21 07:26 Labs: Laboratory Results - last 24 hr 12/11/21 12/11/21 07:26 07:26 WBC 6.7 RBC 4.31 L Hgb 13.7 Hct 39.6 L MCV 91.9 MCH 31.8 MCHC 34.6 RDW 13.3 Plt Count 188 Neut % (Auto) 61.4 Lymph % (Auto) 22.7 L [place] % (Auto) 11.9 Eos % (Auto) 3.2 Baso % (Auto) 0.8 Neut # (Auto) 4100 Lymph # (Auto) 1500 [place] # (Auto) 800 Eos # (Auto) 200 Baso # (Auto) 100 Sodium 137 Potassium 3.8 Chloride 103 Carbon Dioxide 32 BUN 18 Creatinine 0.74 Estimated GFR > 60 BUN/Creatinine Ratio 24.3 H Glucose 123 H Calcium 8.2 L Magnesium 2.1 Total Bilirubin 1.4 H AST 26 ALT 29 Alkaline Phosphatase 50 Total Protein 6.1 L Albumin 3.6 Globulin 2.5 Albumin/Globulin Ratio 1.4 PFSH Medical History Achalasia Anginal pain Asthma Atrial fibrillation Cervical spinal stenosis Chronic obstructive pulmonary disease (10/23/16) COPD (chronic obstructive pulmonary disease) Coronary artery disease History of aortic dissection (~08/2007) Hypertension Ischemic cardiomyopathy Narcotic dependence Neck pain, chronic Ventricular bigeminy Surgical History H/O arthroscopic knee surgery (11/15/17) History of arthroplasty of right knee History of bilateral total hip arthroplasty History of cardiac cath (~03/2014) History of esophageal surgery History of incision and drainage (~2016) History of prior ablation treatment (~03/2017) History of surgery Hx of cholecystectomy Hx of hernia repair Hx of sinus surgery S/P CABG x 3 (~08/2007) S/P cervical spinal fusion S/P lumbar fusion Family History (Updated 12/09/21 @ 13:50 by Rayo Sage DO) Mother Stroke Father Hypertension Social History household members: spouse Smoking Status: Former smoker alcohol intake: current substance use type: does not use Discharge Plan Discharge Plan Patient Disposition: Home Provider Discharge Comment: You were admitted to the hospital with alcohol withdrawal. You improved with medications. Avoid alcohol in the future, more important to avoid while on opiate pain medications and sleeping medication. Discharge orders & Medications Prescriptions: Continued multivitamin [Multiple Vitamins] 1 EACH tablet 1 tab PO DAILY Qty: 0 0RF fluticasone propionate 16 GM spray,suspension 1 spray Intranasal DAILY PRN (Reason: Allergy Symptoms) Qty: 0 0RF ferrous sulfate 325 mg (65 mg iron) tablet,delayed release (DR/EC) 325 mg PO DAILY 0RF Label Comments: take 1 tablet by mouth once daily acetaminophen [Athenol] 325 mg tablet 650 mg PO Q6H PRN (Reason: pain) Qty: 60 0RF furosemide [Lasix] 40 mg tablet 40 mg PO DAILY 0RF glipizide [Glucotrol XL] 2.5 mg tablet extended release 24 hr 2.5 mg PO DAILY 0RF Label Comments: Spouse Cristel called & reported patient not taking it regularly. meclizine 25 mg tablet 25 mg PO QID PRN (Reason: vertigo) Qty: 30 0RF diclofenac sodium 1 % gel 2 g topical QID Qty: 100 0RF Rx Instructions: apply to single elbow, wrist or hand; for hand includes palm/fingers/back of hand diclofenac sodium 1 % gel 2 g topical QID Qty: 100 0RF Rx Instructions: apply to single elbow, wrist or hand; for hand includes palm/fingers/back of hand methocarbamol 500 mg tablet 500 mg PO Q8H PRN (Reason: muscle spasm) Qty: 14 0RF clonidine HCl 0.1 mg tablet 0.2 mg PO TID 0RF lisinopril 10 mg tablet 10 mg PO DAILY 0RF trazodone 100 mg tablet 400 tab PO BEDTIME 30 Days Qty: 120 0RF oxycodone 5 mg Tablet 10 mg PO Q4-5H PRN (Reason: Pain, Severe (7-10)) 7 Days Qty: 60 0RF levalbuterol tartrate [Xopenex HFA] 45 mcg/actuation HFA aerosol inhaler 1 puff INHALATION Q4-6H PRN (Reason: shortness of breath or wheezing) Qty: 15 0RF metoprolol tartrate 100 mg tablet 100 mg PO DAILY 0RF Label Comments: take 1 tablet by mouth twice a day levalbuterol HCl 1.25 mg/3 mL solution for nebulization 3 ml Inhalation Q6H PRN (Reason: Shortness Of Breath) 0RF Label Comments: INHALE 1 VIAL PER NEBULIZER EVERY 6 HOURS NEEDED Zyrtec 10 mg Capsule 10 mg PO DAILY 0RF benzonatate [Tessalon Perles] 100 mg capsule 100 mg PO TID PRN (Reason: cough) Qty: 14 0RF albuterol sulfate 1.25 mg/3 mL solution for nebulization 2.5 mg inhalation QID Qty: 90 1RF Discontinued acetaminophen-codeine 300-30 mg tablet 1 tab PO Q6HR PRN (Reason: Back Pain) 0RF cefdinir 300 mg capsule 300 mg PO BID Qty: 20 0RF oxycodone-acetaminophen [Percocet] 5-325 mg tablet 1 tab PO TID PRN (Reason: pain) Qty: 10 0RF prednisone 50 mg tablet 50 mg PO DAILY Qty: 5 0RF oxycodone-acetaminophen [Percocet] 5-325 mg tablet 1 tab PO Q8H PRN (Reason: pain) Qty: 10 0RF prednisone 20 mg tablet 20 mg PO DAILY Qty: 32 0RF Rx Instructions: 60mg x 5 day, 40mg x 5 day, 20mg x5 day, 10mg x 4 days Follow up/Referrals: Romi Tavera MD [Primary Care Provider] - Diet/Activity/Treatments Diet: Diet as Tolerated Activity: As tolerated Visit Report/Discharge Packet Instructions: DI for Iron Deficiency Anemia-Adult, DI for Nausea -- Adult Discharge Data Primary Care Provider: Romi Tavera
--- NOTE | 2021-12-11 11:53 | PC.NURSE ---
Pt is dressed and ready for discharge home with Spouse. Removed IV. Pt had already removed tele. Went over d/c instructions - discussed d/c meds, no new prescriptions, time of last dose, reviewed stroke education, and discussed follow up. Pt and Spouse denied further questions and stated that they would be following up with their PCP and asking their PCP for a referral to Pulmonary rehab. Pt also given information on iron deficiency anemia. Pt's Spouse reports that Pt does not drive. Pt out via w/c by [facility] to POV with Spouse and all belongings.
--- NOTE | 2021-12-11 12:07 | CM.DPC ---
DCP Discharge Home Per MD, pt had some significant behaviors last night with hallucinations/delusions and unclear if dementia/sundowning was a contributing factor in combination with ETOH withdrawal but pt and spouse continue to deny ETOH abuse and one time drinking incident from pt self medicating to fall asleep as he had used more than prescribed Trazadone and ran out. Pt has stabilized this morning and medically stable to discharge. Spouse stated that they do not keep alcohol in the house as pt has a very remote hx of ETOH abuse but continues to state she is not aware of pt having any current drinking. Spouse and pt are agreeable with d/c to home today and spouse provided transport as she notified RN that pt no longer drives. Spouse states she is pt's 3rd and pt is quite stubborn and awnry at baseline. RN provided d/c instructions and pt was able to d/c to spouse POV for discharge home today. Plan: Patient to d/c home via spouse POV and outpt follow up and no further SW needs at this time. CELESTINA Stark
== END 2021-12-11 11:59 | disposition home or self-care (01) | DRG 897 ==
LOC: ED 12-09 07:32 → AC 12-09 08:05
PROVIDERS: Emergency Medicine; Admitting Provider Internal Medicine; Emergency Provider Emergency Medicine; PCP Internal Medicine; Referring Provider Emergency Medicine; Visit Provider Internal Medicine
DX: F10.139 Alcohol abuse with withdrawal, unspecified (principal); I48.0 Paroxysmal atrial fibrillation; I25.10 Atherosclerotic heart disease of native coronary artery without angina pectoris; G89.29 Other chronic pain; M54.50 Low back pain, unspecified; G47.00 Insomnia, unspecified; I10 Essential (primary) hypertension; J44.9 Chronic obstructive pulmonary disease, unspecified; S00.31XA Abrasion of nose, initial encounter; W01.10XA Fall on same level from slipping, tripping and stumbling with subsequent striking against unspecified object, initial encounter; Y90.5 Blood alcohol level of 100-119 mg/100 ml; Z86.79 Personal history of other diseases of the circulatory system; Z20.822 Contact with and (suspected) exposure to COVID-19; Z95.1 Presence of aortocoronary bypass graft; Z87.891 Personal history of nicotine dependence
CPT/HCPCS: 36415; 70450; 72125; 72131; 80053; 80305; 80320; 80329; 81001; 82272; 82962; 83605; 83735; 84146; 84443; 85025; 87040; 87635; 93005; 93010; 94640; 94760; 96361; 96374; 96375; 96376; 97116; 97162; 97530; 99285; C9803; C9113; G0480; J0360; J1170; J2060; J2405; J2560; J7613

== ENCOUNTER → 2022-01-13 11:24 | Outpatient (CLI) | payer OTHER, SELFPAY ==
[2021-12-09 11:57] VITALS: BMI 25.0
[2022-01-13 12:29] LABS: Add Manual Diff / Slide Review NO; Basophils Absolute Auto 0 /uL (0-100); Basophils Percent Auto 0.1 % (0-2); Eosinophils Absolute Auto 0 /uL (0-450); Hematocrit 41.1 % (41-53); Lymphocytes Absolute Auto 600 /uL (1100-4500); Mean Corpuscular HGB Conc 34.1 % (30-36); Mean Corpuscular Hemoglobin 31.6 PG (26-34); Mean Corpuscular Volume 92.6 fL (80-100); Monocytes Absolute Auto 600 /uL (0-900); Monocytes Percent Auto 5.1 % (3-14); Neutrophils Absolute Auto 10200 /uL (1500-7000); Neutrophils Percent Auto 89.8 % (50-75); Platelet Count 264 X10^3/uL (150-400); Red Blood Cell Count 4.44 X10^6/uL (4.5-5.9); Red Cell Distribution Width 13.8 % (11.6-14.8); White Blood Cell Count 11.4 X10^3/uL (4.5-11.0)
[2022-01-13 12:51] LABS: BUN Creatinine Ratio 19.7 (6-22); Blood Urea Nitrogen 13 mg/dL (9-20); Calcium 8.9 mg/dL (8.4-10.2); Carbon Dioxide 29 mmol/L (22-32); Chloride 99 mmol/L (98-107); Estimated Glomerular Filt Rate > 60 mL/min (>60); Glucose 159 mg/dL (80-110); HEMOLYSIS < 15 (0-50); Potassium 3.9 mmol/L (3.4-5.1); Sodium 137 mmol/L (137-145)
== END ==
PROVIDERS: PCP Internal Medicine; Referring Provider Orthopaedic Surgery Orthopaedic Surgery of the Spine; Visit Provider Orthopaedic Surgery Orthopaedic Surgery of the Spine
DX: Z01.818 Encounter for other preprocedural examination (principal); Z01.812 Encounter for preprocedural laboratory examination
CPT/HCPCS: 36415; 80048; 85025; 93005; 93010

== ENCOUNTER → 2022-01-22 13:57 | Outpatient (CLI) | payer OTHER, SELFPAY ==
[2021-12-09 11:57] VITALS: BMI 25.0
--- NOTE | 2022-01-22 | DI.CT.S_ITS ---
PROCEDURE: CT LUMBAR SPINE WO CON INDICATIONS: SPINAL STENOSIS OF LUMBAR REGION TECHNIQUE: Noncontrast 3 mm thick sections acquired from the T12 level to the sacrum. Sagittal and coronal reformats were constructed. 0.8 mm axial thin sections are reformatted. For radiation dose reduction, the following was used: automated exposure control. COMPARISON: [facility], CT, CT LUMBAR SPINE WO CON, 12/09/2021, 3:30. [facility], MR, MR LUMBAR SPINE WO CON, 09/16/2021, 13:04. [facility] [place], CR, XR LUMBAR SPINE WITH OBLIQUES PLUS FLEXION EXTENSION, 09/09/2021, 13:18. FINDINGS: Image quality: There is artifact associated with the metallic hardware. Artifact from the metallic hardware is reduced by metal reconstruction algorithm. Bones: Mild dextroconvex scoliotic curvature is seen. There is minimal anterolisthesis seen at L1-L2 and minimal retrolisthesis seen at L3-L4. No acute vertebral body compression fractures. No suspicious lytic or blastic bony lesions. No pars defects. Postoperative changes are seen, with bilateral pedicle screws at the L4, L5, and S1 levels. The screws appear well placed. Vertical fixation rods are seen. Disc spacers are seen at L4-L5 and L5-S1. No findings of hardware failure or hardware loosening are seen. There has been removal of portions of the posterior elements. T12-L1: Normal. L1-L2: Moderate loss of disc height is seen. Vacuum disc phenomenon is seen at this level. Endplate irregularity and sclerosis can be seen. Moderate generalized disc bulge is seen. There is a superimposed central disc protrusion. Mild to moderate facet hypertrophy is seen. Moderate to severe bilateral neural foraminal narrowing can be seen. Moderate to severe central canal narrowing is seen. L2-L3: Moderate loss of disc height is seen. Vacuum disc phenomenon is seen at this level. At least moderate disc bulge is seen. Moderate facet joint hypertrophy is seen. There is moderate to severe left-sided and moderate right-sided neural foraminal narrowing. At least moderate central canal narrowing is seen. L3-L4: Moderate loss of disc height is seen. Vacuum disc phenomenon is seen at this level. Moderate generalized disc bulge is seen. There is a superimposed central disc protrusion. Moderate facet hypertrophy can be seen. There is moderate to severe right-sided and at least moderate left-sided neural foraminal narrowing. At least moderate central canal narrowing is seen at this level. L4-L5: There are postoperative changes seen at this level. Moderate generalized disc bulge is seen. There is moderate to severe right-sided and moderate left-sided neural foraminal narrowing. The central canal is widely patent. L5-S1: Postoperative changes can be seen at this level. Mild to moderate disc bulge is seen. There is moderate to severe right-sided and at least moderate left-sided neural foraminal narrowing. No central canal narrowing is seen. Soft tissues: No retroperitoneal masses or hematomas. Visualized aorta is normal in caliber. IMPRESSION: Multiple levels of prominent lumbar spine degenerative change are seen. Intact appearing hardware seen L4 through S1. Mild dextroconvex scoliotic curvature is seen. Dictated by: Arnie Cook M.D. on 01/22/2022 at 15:16 Approved by: Arnie Cook M.D. on 01/22/2022 at 15:23
== END ==
PROVIDERS: PCP Internal Medicine; Referring Provider Orthopaedic Surgery Orthopaedic Surgery of the Spine; Visit Provider Orthopaedic Surgery Orthopaedic Surgery of the Spine
DX: M48.061 Spinal stenosis, lumbar region without neurogenic claudication (principal); M47.816 Spondylosis without myelopathy or radiculopathy, lumbar region; M41.86 Other forms of scoliosis, lumbar region; Z98.1 Arthrodesis status
CPT/HCPCS: 72131

== ENCOUNTER → 2022-02-02 09:41 | Outpatient (CLI) | payer OTHER, SELFPAY ==
[2021-12-09 11:57] VITALS: BMI 25.0
[2022-02-02 10:45] LABS: COVID19 -Nasal RAPID Negative (Negative)
== END ==
PROVIDERS: PCP Internal Medicine; Referring Provider Orthopaedic Surgery Orthopaedic Surgery of the Spine; Visit Provider Orthopaedic Surgery Orthopaedic Surgery of the Spine
DX: Z20.822 Contact with and (suspected) exposure to COVID-19 (principal)
CPT/HCPCS: 87635; C9803

== ENCOUNTER 2022-02-04 07:21 | Inpatient (IN) | payer OTHER, SELFPAY ==
[2021-12-09 11:57] VITALS: BMI 25.0
[2022-01-27 08:37] VITALS: BMI 28.3
[2022-02-04] VITALS (15 sets, daily range): BP systolic 139–193; BP diastolic 63–97; PULSE 95–114; RESP 11–22; TEMP 36–37.7; O2SAT 90–98; BMI 28.3
--- NOTE | 2022-02-04 | DI.RAD.S_ITS ---
PROCEDURE: XR LUMBAR SPINE 2-3V INDICATIONS: L2-S1 POSTERIOR SPINE FUSION TECHNIQUE: 3 views of the lumbar spine were acquired. COMPARISON: [facility], CT, CT LUMBAR SPINE WO CON, 01/22/2022, 14:03. [facility], CR, L-SPINE 2-3 VIEWS, 02/04/2015, 14:29. FINDINGS: Bones: 5 [id number] vertebrae are present. There is normal bony alignment. No vertebral body compression fractures. No suspicious bony lesions. Posterior fusion from L2 through S1 is present. Hardware is intact. There is relatively good anatomic alignment. Intervertebral spacers are also noted. IMPRESSION: Posterior fusion as above. Dictated by: Sanam Dickerson M.D. on 02/04/2022 at 16:08 Approved by: Sanam Dickerson M.D. on 02/04/2022 at 16:09
[2022-02-04] MEDS: LACTATED RINGERS 1,000 ML 42 ML IV ×2 (08:33→13:17)
[2022-02-04] MEDS: OXYCODONE IR 5 MG TABLET PO (09:09)
[2022-02-04] MEDS: ALBUTEROL 2.5 MG/3 ML NEB (ADULT) INH ×3 (09:10→19:49)
--- NOTE | 2022-02-04 09:11 | SUR.PREOP ---
Spoke to Dr Kincaid in OR #3. Informed of patient request for pain medication. That patient states NO dilaudid, morphine or oxycontin. Oxycodone only, or ativan for anxiety. No valium. See new orders.
--- NOTE | 2022-02-04 09:32 | PM.PREOP ---
Pre-operative Note COVID-19 COVID-19 status: Negative Result date/Date tested (Pos, Neg/Pending): 02/03/22 Criteria for continued procedure: Expected advancement of disease process, Possibility delay results in more complex future surgery or treatment, Increased loss of function, Continuing or worsening of significant or severe pain, Deterioration of the patient's condition or overall health and Delay expected to result in less-positive ultimate med/surg outcome Interval Note History & Physical reviewed/Exam performed by Physician: Yes Changes to H&P: No
[2022-02-04] MEDS: CEFAZOLIN 2 GM/20 ML SYRINGE IV ×3 (10:48→18:27)
[2022-02-04] MEDS: VASOPRESSIN 20 UNIT/ML VIAL IV (10:55)
--- NOTE | 2022-02-04 10:56 | SUR.OPER ---
Prone on spine table, head in foam head support, padded chest and pelvic supports, gel pad at knees, lower legs supported by pillows; nipples, genitalia and toes free of pressure, arms secured on foam padded arm boards at <90 degrees abduction. Tape over blanket at thigh secured to table. Gel pad between heels.
[2022-02-04] MEDS: ACETAMINOPHEN IV 1,000 MG/100 ML VIAL 400 MG IV (13:40)
[2022-02-04] MEDS: BUPIVACAINE 0.25% (PF) 60 ML, EPINEPHrine 0.3 MG INJ (15:15)
[2022-02-04] MEDS: BUPIVACAINE LIPOSOME 266 MG/20 ML VIAL INJ (15:21)
--- NOTE | 2022-02-04 15:28 | PM.OP.1 ---
Operative Date/Time/Diagnoses Date of procedure: 02/04/22 Time of procedure: 10:00 Pre-op diagnosis: 1. L2-3, L3-4, L4-5, L5-S1 spinal stenosis with neurogenic claudication 2. History of L4-5, L5-S1 fusion with instrumentation Post-op diagnosis: same Procedure & Clinicians Procedure: 1. L2-3, L3-4 posterolateral and posterior interbody fusion 2. L2-3, L3-4 posterior interbody cage placement 3. L4-5, L5-S1 posterior segmental instrumentation removal 4. L4-5, L5-S1 revision laminectomy with exploration of fusion 5. L2-3, L3-4, L4-5, L5-S1 posterior segmental instrumentation with pedicle screw placement 6. L4-5 posterolatearl fusion 7. Wing of bone marrow from iliac crest through a separate incision 8. Utilization of microsurgical technique and operating microscope 9. Utilization of [employer], [employer] robotic navigation Same procedure as scheduled: Yes Indications: Patient has been having chronic back pain and worsening lumbar radiculopathy. Patient had previous L4-S1 lumbar fusion it has been doing well until the last 6 month. Patient failed multiple conservative management with worsening pain weakness and numbness in his lower extremity. Patient has been having difficulty performing activity of daily living. After discussing risks benefits of treatment options, patient elected proceed with surgery. Surgeon: Cinda Barbosa Roll Slicing Machine Tender: Lin Wayne Click Yes if Unassisted: No Anesthesia Type: General Operative Notes Closure Type: primary Specimen(s): none sent Prosthetic devices, grafts, tissues, transplants, or devices: Globus CREO MIS screws, Rise cages Applied: catheter Estimated Blood Loss (mL): 250 Blood products transfused: none Procedure in detail: Patient was seen in the preoperative area. Risks and benefits of the surgery was discussed with the patient. Informed consent was obtained from the patient and placed in the chart. Surgical site was marked. Patient was taken to the operative room. General anesthesia was administered. Prophylactic antibiotic was given to the patient less than 30 min before the incision was made. Patient was placed into a prone position on the Keron table. Patient's back was then prepped and draped in the sterile fashion. Time-out was performed at this time. After patient was prepped and draped, patient's PSIS was palpated and marked bilaterally. Small 1 cm incision was made over the PSIS for placement of the reference probes. Two trocar was placed into the PSIS 1 on each side. The reference probe was attached to the trocar of the reference apparatus. At this time the C-arm imaging was used to confirm AP and lateral of L2, L3, L4, L5, and S1 vertebrae and merged the C-arm imaging using the Xtalic navigation system with the CT of the lumbar spine. After successful merging was completed and confirmed, skin marker was used to marleen out the skin incision using the [employer] robotic arm. Bilateral incision was made at this time. Using patient's previous scar incision was made over the L2, L3, L4, L5-S1 interval on the left side. Fascia was incised in line with skin incision. Patient's previously placed hardware over the L4-5 L5-S1 level was identified by dissecting down to the level the hardware using a Bovie and a Kebede. The locking caps which was removed using Pilot Systemsus screwdriver. The locking evelyn was then removed from the tulips of the pedicle screws using a Chen. The pedicle screws were then removed using the screwdriver. The screws were found to have good purchase. Pre templated trajectory was used and guided using the [employer] robotic navigation system for left L2, L3, L4, L5 and S1 pedicle screws and right L2, L3, L4 , L5 and S1 pedicle screws placement. This was done by using the robotic arm to guide the high-speed bur to make a cortical entry point. Next a drill was placed also using the robotic arm and guided using the navigation system drilling partially through bilateral L2, L3, L4, L5, S1 pedicles. Next L2, L3, L4, L5, S1 pedicle screws it was pre templated and measured was placed onto the power auto haulaway driver and inserted into the pedicles bilaterally. After all 10 screws were placed C-arm imaging was taken of both AP and lateral to confirm the placement. Excellent placement of the screws were confirmed and a matched precisely with the pre planned screw placement using the navigation system. MARs retractor was inserted using ChangeAgain.Meozzie guidence. Globus MARS retractors was placed inside the incision and docked onto the L2 and L3 lamina. Using microsurgical technique and operating microscope, a L2 and L3 laminectomy and L2-3, L3-4 facetectomy was performed using a Kerrison rongeur. Patient was found have severe lateral recess and neural foramen stenosis which was fully decompressed after the laminectomy facetectomy. More than 75% of the facets were removed during the process of decompression rendering L2-3, L3-4 level grossly unstable and required a fusion procedure at the same time. The disc space at L2-3, L3-4 was identified, and a total diskectomy was performed at L2-3, L3-4 level. The endplates were decorticated using a rasp and shaver. The total diskectomy and decortication was performed at L2-3, L3-4 level in order to to accomplish a L2-3, L3-4 fusion. The local bone from the laminectomy and facetectomy was saved for local bone grafting. After the total diskectomy and decortication was completed, Trifecta bone graft material was combined with local bone that was harvested earlier. At this time, a separate skin is incision was made over the iliac crest. A Jamshidi needle was inserted into the iliac crest through a separate skin incision. 5 cc of bone marrow aspiration was obtained through the separate skin incision using a Jamshidi needle from the iliac crest. The bone marrow aspiration was combined with local bone and the Trifecta bone grafting material. The bone grafting material was placed into the L2-3, L3-4 interbody space along with a expandable cage. The cages were expanded to its maximum height using the torque limiting screwdriver. The disc preparation as well as the cage insertion were also performed under navigation guidance. After the cage was placed, AP and lateral C-arm imaging was taken to confirm placement of the cage and excellent position was confirmed. The fusion mass on the right side of L4-5, L5-S1 was exposed by performing a right-sided hemilaminectomy at L4-5 L5-S1 level. The hemilaminectomy was performed using the Kerrison rongeur to undercut the lamina as well removing additional epidural scar tissue for purpose of decompressing the epidural space. The fusion mass was explored and was found have visible motion indicating pseudoarthrosis at L4-5 level and solid at the L5-S1 level. Globus MARS retractor was inserted and docked onto the L2-3, L3-4, L4-5 posterolateral gutter. Using the power drill, posterior-lateral decortication was performed at L2-3, L3-4, L4-5 level until bleeding cortical bone was identified. The remaining bone grafting material was placed into the L2-3, L3-4, L4-5 posterior lateral gutter he order to accomplish posterolateral fusion at the L2-3, L3-4, L4-5 level. At this time the tulips were attached to the L2, L3, L4-L5 and S1 pedicle screw shanks. This was done in L2, L3, L4-L5 S1 pedicles bilaterallyAfter measuring the length of the rods, they were inserted into the tulips of the pedicle screws and locked in place using locking caps and torque limiting screwdriver bilaterally. Total 10 caps and 2 titanium rods was used in order to complete the posterior instrumentation construct. After all the hardware was placed, and confirmed with AP and lateral C-arm imaging, the wound was then irrigated with sterile normal saline and packed with Ray-[place] gauze for 3 min to accomplish hemostasis. After the gauze was removed the deep fascia was closed with #1 Vicryl suture. The subcutaneous layer was closed with 2-0 Vicryl. The skin was closed with skin petty. Patient tolerated the procedure well. There were no complications. Neuro monitoring system was used to monitor patient's neurologic status throughout entire procedure. There was no disturbance of the neural monitoring signals throughout the case. Complications: none Post-operative Condition: stable Disposition: PACU Plan for aftercare: Admit to inpatient hospital
[2022-02-04] MEDS: fentaNYL 100 MCG/2 ML INJ IV ×2 (16:11→16:30)
[2022-02-04] MEDS: hydrOXYzine 50 MG/ML INJ IM (16:34)
--- NOTE | 2022-02-04 16:45 | SUR.PHASEI ---
Dr Barbosa notified in person of cloudy urine. See new order for UA C&S if indicated.
[2022-02-04 17:13] LABS: Appearance Urine UA CLOUDY; Bilirubin Urine UA NEGATIVE (NEGATIVE); Color Urine UA YELLOW; Glucose Urine UA NEGATIVE (Negative); Ketones Urine UA TRACE (NEGATIVE); Leukocyte Esterase Urine UA NEGATIVE (NEGATIVE); Nitrite Urine UA NEGATIVE (Negative); Occult Blood Urine UA 3+ (Negative); Protein Urine UA 1+ (Negative); Specific Gravity Urine UA 1.025 (1.000-1.035); Urobilinogen Urine UA 0.2 E.U./dL (0.2); pH Urine UA 5.5 (4.5-8.0)
[2022-02-04 17:23] LABS: Bacteria Urine None Seen; Culture Indicated Urine Cult Not Indicated; RBC Urine 10-30/HPF (0-5/HPF); Squamous Epithelial Cell Urine 1-5 /HPF (0-5/HPF); WBC Urine None Seen (0-5/HPF)
[2022-02-04] MEDS: OXYCODONE IR 5 MG TABLET 10 MG PO ×2 (17:30→21:28)
[2022-02-04] MEDS: SODIUM CHLORIDE 0.9% 1,000 ML 100 ML IV (17:49)
[2022-02-04] MEDS: fentaNYL 12 MCG/PATCH TOP (18:27)
--- NOTE | 2022-02-04 18:46 | PC.NURSE ---
Postop Note Pt arrived to room 226 at 1700. Moaning and reporting pain to back, stating oh god, help me repeatedly. Oriented to room and to bed/tv/call light controls. Oxycodone PO administered for pain 10/10 to back. Instructed on post-surgical precautions (no twisting, bending), acknowledges understanding but frequently seen to be twisting and moving in bed, reinforcement attempted. Arrived on simple mask which pt took off, SpO2 86% on RA, placed on 2L NC with sats 94-95%. Dressing to back D/I, bloody drainage to top left of bandage, border marked. CMS intact to BLEs. Order for fentanyl topical patch confirmed by pharmacist with Dr. Barbosa, plan is to control pt's pain as it has historically been difficult to control. Pt only takes oxycodone, fentanyl, or codeine for opioid pain management due to adverse reactions. Fentanyl patch placed right shoulder. Continuous pulse oximetry in place. Fuentes in place draining cloudy yellow urine. SCDs removed per pt request due to pain. Pt calm at this time, resting quietly in bed. Call light within reach. Bed alarm is on.
[2022-02-04] MEDS: hydrOXYzine pamoate 25 MG CAPSULE PO (19:38)
[2022-02-04] MEDS: LORazepam 1 MG TABLET PO (19:38)
--- NOTE | 2022-02-04 20:34 | PC.NURSE ---
Addendum entered by Christopher Carnes R.N. 02/05/22 06:22: Behavior continued throughout shift. Repeatedly shouting and calling out. RT contacted and breathing treatments administered several times due to patient request and wheezing. Original Note: Patient extremely restless and anxious. Not adhering to spinal surgery precautions and in high risk of complication to incision and spine. Dr. Barbosa notified, given order for Ativan. Will administer and continue to reorient patient as best as possible.
[2022-02-04] MEDS: MECLIZINE HCL 12.5 MG TABLET 25 MG PO (21:27)
[2022-02-04] MEDS: TRAZODONE 100 MG TABLET 400 MG PO (21:27)
[2022-02-04] MEDS: SENNOSIDES 8.6 MG TABLET 17.2 MG PO (21:27)
[2022-02-04] MEDS: DOCUSATE 100 MG CAPSULE PO (21:27)
[2022-02-04] MEDS: cloNIDine 0.1 MG TABLET 0.2 MG PO (21:27)
[2022-02-05] VITALS (14 sets, daily range): BP systolic 96–144; BP diastolic 57–79; PULSE 93–108; RESP 16–24; TEMP 36.3–37.7; O2SAT 90–96
[2022-02-05] MEDS: LORazepam 1 MG TABLET PO ×3 (00:04→15:15)
[2022-02-05] MEDS: MECLIZINE HCL 12.5 MG TABLET 25 MG PO (00:04)
[2022-02-05] MEDS: OXYCODONE IR 5 MG TABLET 10 MG PO ×6 (00:04→22:04)
[2022-02-05] MEDS: ALBUTEROL 2.5 MG/3 ML NEB (ADULT) INH ×4 (00:47→19:34)
[2022-02-05] MEDS: CODEINE/ACETAMINOPHEN 30/300 TABLET 2 TAB PO ×3 (01:30→12:03)
[2022-02-05] MEDS: CEFAZOLIN 2 GM/20 ML SYRINGE IV (03:00)
[2022-02-05] MEDS: ACETAMINOPHEN 325 MG TABLET 650 MG PO ×3 (07:36→22:05)
--- NOTE | 2022-02-05 09:31 | PT.IIE ---
Current Diagnoses Spinal stenosis, lumbar region with neurogenic claudication (02/04/22) Arthrodesis status (02/04/22) Surgery Performed Operation Date: 02/04/22 09:15 Actual Procedures p L2-3, L3-4 TLIF, L2-S1 PSF w. posterior instrumentation, L1-2 laminectomy - robot - Cinda Barbosa MD Surgical History (Last Reviewed 02/05/22 @ 10:10 by Emilee Choi PA-C) H/O arthroscopic knee surgery (11/15/17) History of arthroplasty of left knee (05/25/19) History of arthroplasty of right knee History of bilateral total hip arthroplasty History of cardiac cath (~03/2014) History of esophageal surgery History of incision and drainage (~2016) History of prior ablation treatment (~03/2017) History of surgery Hx of cholecystectomy Hx of hernia repair Hx of sinus surgery S/P CABG x 3 (~08/2007) S/P cervical spinal fusion S/P lumbar fusion Medical History (Last Reviewed 02/05/22 @ 10:10 by Emilee Choi PA-C) Achalasia Anginal pain Asthma Atrial fibrillation Cervical spinal stenosis Chronic obstructive pulmonary disease (10/23/16) COPD (chronic obstructive pulmonary disease) Coronary artery disease History of aortic dissection (~08/2007) Hypertension Ischemic cardiomyopathy Narcotic dependence Neck pain, chronic Ventricular bigeminy Physical Therapy Inpatient Evaluation/Re-Eval M1 PT/OT-IP Prior Functional Status Start: 02/05/22 12:37 Freq: NEEDED Status: Active Protocol: Document 02/05/22 09:31 AB (Rec: 02/05/22 12:55 AB [id number]) Medical Review Prior Functional Status Medical History Reviewed Yes Communication able to make needs known Mobility and Gait pt stated that he is modified independent with all mobilities and ambulation withotu AD but occasionally uses a hurrycane Social History Household Members spouse Living Arrangements House Number of Floors (Floors) 3 or More Floors Number of Stairs To Enter/Railing? pt lives on a split level house but pt stays on first level of the house ramp to enter Home Environment High Toilet,Walk in Shower, Ramp Home Equipment Front Wheel Walker,Four Wheel Walker,Manual Wheelchair, Shower Seat with Backrest,Hand Held Shower Additional Social History Comment pt has a hurrycane pt has an adjustable bed but usually sleeps on a recliner M2 PT-IP Current Condition Start: 02/05/22 12:37 Freq: NEEDED Status: Active Protocol: Document 02/05/22 09:31 AB (Rec: 02/05/22 12:55 AB [email or web address]) Physical Therapy Current Condition Current Condition Evaluation Date 02/05/22 Treatment Diagnosis L2-S1 TLIF; difficulty in walking Onset Date 02/04/22 M3 PT-IP Subjective Start: 02/05/22 12:37 Freq: NEEDED Status: Active Protocol: Document 02/05/22 09:31 AB (Rec: 02/05/22 12:55 AB [email or web address]) Subjective Physical Therapy Visit Type Type Initial Evaluation Visit Start Time 09:31 Visit Stop Time 10:20 Total Visit Minutes 49 Number of COST CONTROL SUPERVISOR Visits 0 Physical Therapy Visit Comments Patient Comments agreeable to do PT Therapy Pain Assessment Pain When Pain Assessed At Rest Pain Present Pain Present Pain Reported Location Back Intensity 8 Scale Used Numeric (0 - 10) Pain Management Techniques Distraction,Modification of Treatment,Re-positioning, Timing of Activity with Medications M4 PT-IP Mobility and Gait Start: 02/05/22 12:37 Freq: NEEDED Status: Active Protocol: Document 02/05/22 09:31 AB (Rec: 02/05/22 12:55 AB [email or web address]) PT-Bed Mobility Assessment Supine to Sit Supine to Sit Standby Assistance,Head of Bed Elevated PT-Transfer Assessment Sit to and From Stand Sit to and from Stand Minimal Assistance,1 Person Assistance,Use of Upper Extremities Equipment Transfer Assistive Device Gait Belt,Front Wheeled Walker Orthotic/Prosthetic Devices or Brace: No Transfers Transfer Destination Toilet Transfer Technique ambulated Transfer Ability Level of Assist Minimal Assistance,Use of Upper Extremities Comments Mobility Comments pt is impulsive and easily distracted. reviewed back precautions but pt is distracted. pt focus on sensation that he has to urinate but has guardado in. educated pt but pt continues on wanting to use the toilet. pt sat up on EOB SBA with HOB elevated and was impulsive and sat up before PT was ready and pt did not adhere to back precautions. pt able to sit on EOB SBA. completed sit to stand min A and ambulated to the toilet using FWW min A ~ 10 ft. ambulated out of the toilet to the chair. assisted with brief management. completed sit to stand from chair min A and assisted with brief management. pt sat back on chair and positioned. chair alarm on. left pt with OT. Gait Assessment Gait Gait Assistance Required: Minimum Assistance,1 Person Assist Distance (Feet) 10 Able to Maintain Weight Bearing Status Yes During Gait Assistive Devices Assistive Device Gait Belt,Front Wheeled Walker Orthotic/Prosthetic Devices or Brace: No Gait Deviations General Gait Pattern Antalgic,Decreased Stride Length,Decreased Feet Clearance Factors Limiting Gait Function Factors Limiting Gait Function Decreased Activity Tolerance, Decreased Sensation,Decreased Strength,Difficulty Following Directions,Limited Range of Motion,Pain,Poor Balance,Poor Safety Awareness PT-Balance Assessment Sitting Balance and Reactions Static Sitting Balance Ability Good Dynamic Sitting Balance Ability Good Standing Balance and Reactions Static Standing Balance Ability Fair Dynamic Standing Balance Ability Fair Device Used FWW M5 PT-IP Objective Assessments Start: 02/05/22 12:37 Freq: NEEDED Status: Active Protocol: Document 02/05/22 09:31 AB (Rec: 02/05/22 12:55 AB [email or web address]) Orientation Orientation/Cognition Level of Alertness Alert Orientation Name,Place,Situation Safety Awareness Decreased Safety Awareness Gross Range of Motion Lower Extremity ROM Assessment Within Functional Limits Strength Lower Extremity Strength Hip 4-/5 Knee 4/5 Sensation Assessment Sensation Sensation Description Numbness Comments Sensation Comments stated numbness on B lateral hips Muscle Tone Muscle Tone WNL Yes M6 PT-IP Treatment Start: 02/05/22 12:37 Freq: NEEDED Status: Active Protocol: Document 02/05/22 09:31 AB (Rec: 02/05/22 12:55 AB [email or web address]) Physical Therapy Treatment Education Education Provided Precautions,Weight Bearing Status,Post-Op Packet,Safety M7 PT-IP Assessment and Plan Start: 02/05/22 12:37 Freq: NEEDED Status: Active Protocol: Document 02/05/22 09:31 AB (Rec: 02/05/22 12:55 AB [email or web address]) PT Summary Assessment and Plan Potential Rehabilitation Potential Fair Status of Condition at Evaluation Stable Summary Impairments Pain,ROM,Strength,Balance, Coordination,Sensation,Tone, Cognition,Bed Mobility, Transfers,Gait,Activity Tolerance Assessment Summary pt requiring min A with mobility using FWW and is very impulsive. pt plans to go home with spouse to assist him . will conduct caregiver training when appropriate. will conitnue to assess progress. Goals Bed Mobility Goal Independent Transfer Goal Independent,Front Wheeled Walker Gait Goal Independent,Front Wheel Walker Gait Distance 200 Days to Meet Goals 5 Frequency of Treatment Frequency Of Treatment Twice a Day Treatment Plan Physical Therapy Treatment Plan Bed Mobility Training,Transfer Training,Gait Training, Therapeutic Exercise,Balance Retraining,Post Op Education, Discharge Planning,Hot or Cold Pack,Neuromuscular Re-ed, Coordination Retraining,Manual Therapy Precautions Lumbar Precautions Log Roll,No Twisting,Limit Bending,Lifting Restriction of 10 lbs,Gait Belt above Incisional Area Recommendations To Nursing Amount of Assist Needed 1 Person Assist Discharge Recommendations PT Discharge Recommendations Home with 24/ Assist Available Transportation Needs at Discharge Private Vehicle
[2022-02-05 09:40] LABS: Hematocrit 35.4 % (41-53); Hemoglobin 12.6 g/dL (13.5-17.5)
--- NOTE | 2022-02-05 10:06 | PM.PNPO.1 ---
Subjective Subjective Date Patient Seen: 02/05/22 Time Patient Seen: 09:00 Interval history: Patient is complaining of [id number] low back pain this morning. He has been using fentanyl patch 12 mcg oxycodone 10 mg and occasional Vistaril. He also is using his baseline Tylenol, Tylenol No. 3 an Ativan. This seems to be controlling his pain well. He has had major issues in the past with pain control and somnolence. He denies any new numbness or tingling. Overall he is feeling pretty well after his surgery yesterday. His is at bedside this morning. She is very adamant about his medications. He cannot tolerate morphine or Dilaudid. Had a long conversation explained he is not taking those medications currently. She is very concerned and does not want him to be discharged on a fentanyl patch. Again, we had a long discussion about finding the balance between controlling his pain and side effects. He seems to be very appropriately managed this morning from my standpoint. We will see how he progresses during his hospital stay. Exam Vital Signs (past 8 hours): - 02/05/22 04:00 02/05/22 06:01 02/05/22 08:00 Temperature 98.1 F Pulse Rate 95 H 93 H Respiratory Rate 16 17 Blood Pressure 103/57 L Pulse Oximetry 96 93 90 L Oxygen Delivery Method Nasal Cannula Oxygen Flow Rate 2 0 Oxygen Delivery Method Nasal Cannula Oxygen Flow Rate 0 Narrative Exam Narrative: Pleasant 76-year-old male, resting comfortably in bed, no acute distress. is at bedside and is being somewhat pushy. Bilateral dressings are saturated but there is no surrounding erythema or induration. Bilateral lower extremity: Motor functions are grossly intact, sensation is grossly intact to light touch, calves are soft and nontender to palpation. Objective Labs Result Diagrams: 02/05/22 08:53 Labs: Laboratory Results - last 24 hr 02/04/22 02/04/22 02/05/22 16:44 17:50 08:53 Hgb 12.6 L Hct 35.4 L Urine Color Yellow Urine Appearance Cloudy Urine pH 5.5 Ur Specific [place] 1.025 Urine Protein 1+ H Urine Glucose (UA) Negative Urine Ketones Trace H Urine Occult Blood 3+ H Urine Nitrate Negative Urine Bilirubin Negative Urine Urobilinogen 0.2 Ur Leukocyte Esterase Negative Urine RBC 10-30/hpf H Urine WBC None seen Ur Squamous Epith Cells 1-5 /hpf Other Crystals Cholesterol Urine Bacteria None seen Ur Culture Indicated? Cult not indicated Nasal Screen MRSA (PCR) Negative for mrsa PFSH Medical History Achalasia Anginal pain Asthma Atrial fibrillation Cervical spinal stenosis Chronic obstructive pulmonary disease (10/23/16) COPD (chronic obstructive pulmonary disease) Coronary artery disease History of aortic dissection (~08/2007) Hypertension Ischemic cardiomyopathy Narcotic dependence Neck pain, chronic Ventricular bigeminy Surgical History H/O arthroscopic knee surgery (11/15/17) History of arthroplasty of left knee (05/25/19) History of arthroplasty of right knee History of bilateral total hip arthroplasty History of cardiac cath (~03/2014) History of esophageal surgery History of incision and drainage (~2016) History of prior ablation treatment (~03/2017) History of surgery Hx of cholecystectomy Hx of hernia repair Hx of sinus surgery S/P CABG x 3 (~08/2007) S/P cervical spinal fusion S/P lumbar fusion Family History Mother Stroke Father Hypertension Social History household members: spouse Smoking Status: Former smoker alcohol intake: current substance use type: does not use Assessment & Plan Post-op Postoperative Procedures: Procedures Operation Date: 02/04/22 09:15 Actual Procedure Side Surgeon p L2-3, L3-4 TLIF, L2-S1 PSF w. posterior instrumentation, L1-2 laminectomy - robot Cinda Barbosa MD Postoperative day: 1 Postoperative status: doing well Postoperative status narrative: -stable status post L4-5, L5-S1 hardware removal and L2 through S1 instrumentation -hematuria -history of sensitivity to pain medications, currently well controlled Postoperative plan: routine post-op care Postoperative plan narrative: -mobilize with PT/OT. Weightbearing as tolerated with front wheel walker. Limit bending, lifting, twisting x6 weeks -continue with current multimodal pain management. Had a very long discussion with the patient and his today. The patient seems to be responding appropriately to the current regimen of medications. He is not excessively somnolent, I am pleased with his current pain regimen. We will continue to monitor him, but if he does well we will likely discharge him home on these current medications -DC catheter today. UA demonstrated hematuria, but no acute infection. This could be traumatic from the Fuentes catheter placement. -DC home in 1-2 days, once cleared by PT and pain is well managed.
--- NOTE | 2022-02-05 10:43 | OT.IP.EVAL ---
Current Diagnoses Spinal stenosis, lumbar region with neurogenic claudication (02/04/22) Arthrodesis status (02/04/22) Surgery Performed Operation Date: 02/04/22 09:15 Actual Procedures p L2-3, L3-4 TLIF, L2-S1 PSF w. posterior instrumentation, L1-2 laminectomy - robot - Cinda Barbosa MD Past Medical History (Last Reviewed 02/05/22 @ 10:10 by Emilee Choi PA-C) Achalasia Anginal pain Asthma Atrial fibrillation Cervical spinal stenosis Chronic obstructive pulmonary disease (10/23/16) COPD (chronic obstructive pulmonary disease) Coronary artery disease History of aortic dissection (~08/2007) Hypertension Ischemic cardiomyopathy Narcotic dependence Neck pain, chronic Ventricular bigeminy Surgical History (Last Reviewed 02/05/22 @ 10:10 by Emilee Choi PA-C) H/O arthroscopic knee surgery (11/15/17) History of arthroplasty of left knee (05/25/19) History of arthroplasty of right knee History of bilateral total hip arthroplasty History of cardiac cath (~03/2014) History of esophageal surgery History of incision and drainage (~2016) History of prior ablation treatment (~03/2017) History of surgery Hx of cholecystectomy Hx of hernia repair Hx of sinus surgery S/P CABG x 3 (~08/2007) S/P cervical spinal fusion S/P lumbar fusion Occupational Therapy Inpatient Evaluation/Re-Eval M1 PT/OT-IP Prior Functional Status Start: 02/05/22 12:37 Freq: NEEDED Status: Active Protocol: Document 02/05/22 09:35 [facility] (Rec: 02/05/22 13:18 [facility] [id number]) Medical Review Prior Functional Status Medical History Reviewed Yes Communication able to make needs known Mobility and Gait pt stated that he is modified independent with all mobilities and ambulation without AD but occasionally uses a hurrycane Activities of Daily Living and IADL's Pt states prior able to to do all his ADL and money management needs on his own. states help with his medications. Social History Household Members spouse Living Arrangements House Number of Stairs To Enter/Railing? pt lives on a split level house but pt stays on first level of the house ramp to enter Home Environment High Toilet,Walk in Shower, Ramp Home Equipment Front Wheel Walker,Four Wheel Walker,Manual Wheelchair, Shower Seat with Backrest,Hand Held Shower Additional Social History Comment pt has a hurrycane pt has an adjustable bed but usually sleeps on a recliner M2 OT-IP Current Condition Start: 02/05/22 10:47 Freq: Status: Active Protocol: Document 02/05/22 09:35 [facility] (Rec: 02/05/22 13:18 [facility] [id number]) Occupational Therapy Current Condition Current Condition Evaluation Date 02/05/22 Treatment Diagnosis S/p L2-3, L3-4TLIF, L2-5 PSF, L1-L2 lami Diagnosis Onset Date 02/04/22 Post Operative Precautions Lumbar Precautions Log Roll,No Twisting,Limit Bending,Lifting Restriction of 10 lbs,Gait Belt above Incisional Area M3 OT- IP Subjective and Pain Start: 02/05/22 10:47 Freq: Status: Active Protocol: Document 02/05/22 09:35 [facility] (Rec: 02/05/22 13:18 [facility] [id number]) OT- Subjective Occupational Therapy Visit Type Type Initial Evaluation Visit Start Time 09:35 Visit Stop Time 10:43 Total Visit Minutes 68 Notes Pt'w initially in the room and then left. Occupational Therapy Visit Comments Patient Comments Pt willing to get up. Patient/Caregiver Goals TO go home. OT Pain Assessment Pain When Pain Assessed At Rest Pain Present Pain Present Pain Reported Location Back Intensity 8 M4 OT- IP ADL's Start: 02/05/22 10:47 Freq: Status: Active Protocol: Document 02/05/22 09:35 [facility] (Rec: 02/05/22 13:18 [facility] [id number]) OT BVD-Wydh-Jvglnte Comments OT Self-Feeding Comments Not at meal time. OT ADL-Grooming General Evaluation Grooming Ability Standby Assistance OT ADL-Oral Care General Eval Oral Care Ability Standby Assistance Comments Oral Care Comments Educated for pt if standing best to just spit into a cup to best follow his back precautions. OT ADL-Dressing General Eval Lower Body Dressing Ability Maximum Assistance Areas Needing Assistance Underpants/Brief Comments OT Dressing Comments Pt states has LB dressing equipment at home from prior surgeries. OT ADL-Toileting General Evaluation Toileting Ability Moderate Assistance Areas Needing Assistance Manage Clothing OT ADL-Bathing Comments OT Bathing Comments Not performed. M5 OT- IP IADL's Start: 02/05/22 10:47 Freq: Status: Active Protocol: Document 02/05/22 09:35 [facility] (Rec: 02/05/22 13:18 [facility] [id number]) OT-Instrumental Activities of Daily Living Home Safety Awareness Home Safety Comments At this time due to pt a bit impulsive and confused would be best for his him for all needs at this time. M6 OT- IP Functional Cognition Start: 02/05/22 10:47 Freq: Status: Active Protocol: Document 02/05/22 09:35 [facility] (Rec: 02/05/22 13:18 [facility] [id number]) Cognitive Factors Limiting Selfcare Function Cognitive Ability Level of Alertness Confusional State Patient Orientation Name Attention Span Ability Capable of Focused Attention, Unable to Focus,Unable to Sustain Attention Ability to Follow Commands Able to Follow One Step Commands with Increased Time, Able to Follow One Step Commands with Repetition Safety Awareness Decreased Recall of Precautions,Decreased Ability to Apply Precautions, Underestimates Need for Assistance Problem Solving Ability Needs Assist to Identify Solutions Executive Function Ability Unable to Hold Focus,Unable to Filter Distractions,Unable to Remember Details Cognitive Comments Cognitive Assessment Comments pt is highly impulsive, distracted and focused on trying to urinate even though pt still have the guardado in place in the beginning of the session. Pt not able to recall his back precautions, tends to sit upright while trying to get out of bed instead of follow his back precautions. Pt needing simple concrete vc to follow. Pt initially states had 2/10 pain and then nursing came in called it 8/10. OT- Vision and Hearing OT- Hearing Assessment OT- Hearing Assessment WFL OT- Vision Assessment Visual Acuity Glasses All The Time M7 OT- IP Mobility and Balance Start: 02/05/22 10:47 Freq: Status: Active Protocol: Document 02/05/22 09:35 [facility] (Rec: 02/05/22 13:18 [facility] [id number]) OT- Bed Mobility Assessment Sit to Supine Sit to Supine Assist Minimal Assistance OT-Transfer Assessment Sit to and From Stand Sit to and from Stand Minimal Assistance Transfers Transfer Ability Minimal Assistance Technique Transfer Destination Bed,Chair,Toilet Transfer Technique Stand Step Pivot Devices Transfer Assistive Devices Gait Belt,Front Wheeled Walker Comments Mobility Comments GERARDO to stand to FWW and for transfer to the bathroom, recliner, and back to the bed. OT- Balance Assessment Sitting Balance and Reactions Static Sitting Balance Ability Good Dynamic Sitting Balance Ability Good Standing Balance and Reactions Static Standing Balance Ability Fair Dynamic Standing Balance Ability Fair M8 OT- IP Objective Assessments Start: 02/05/22 10:47 Freq: Status: Active Protocol: Document 02/05/22 09:35 [facility] (Rec: 02/05/22 13:18 [facility] [id number]) OT-Muscle Tone Assessment Muscle Tone WNL Yes M9 OT- IP Assessment and Plan Start: 02/05/22 10:47 Freq: Status: Active Protocol: Document 02/05/22 09:35 [facility] (Rec: 02/05/22 13:18 [facility] [id number]) OT Summary Assessment and Plan Potential Rehabilitation Potential Good Analytic Complexity at Evaluation Low Summary OT Impairments Balance,Functional Cognition, Functional Mobility,Grooming, Dressing,Toileting,Bathing, Toilet Transfers,Shower Transfers Progress Towards Goals Slow Progress due to Medical Issues,Slow Progress due to Cognition Assessment Summary Pt low complexity and his main barriers are decreased safety awareness, impulsive and insistent of doing things his way. Pt will need 24/7 assist at home when medically stable. Goals Grooming Goal Independent Dressing Goal Independent Toileting Goal Independent Bathing Goal Independent Toilet Transfer Goal Independent Shower Transfer Goal Independent Patient/Caregiver Education Goal Demonstrate Post-Op Precautions,Caregiver Independent Assisting Patient Days to Meet Goals 7 Frequency of Treatment Frequency Of Treatment Once a Day Treatment Plan OT Treatment Plan ADL Training,Functional Cognition Training,Functional Mobility,Patient/Family Education,Discharge Planning Other Treatment Recommendations and Next shower Treatment Focus Discharge Recommendations OT Discharge Recommendations Home with 24/7 Assist Available Transportation Needs at Discharge Private Vehicle
[2022-02-05] MEDS: DOCUSATE 100 MG CAPSULE PO ×2 (10:54→20:00)
[2022-02-05] MEDS: FUROSEMIDE 40 MG TABLET PO (10:55)
[2022-02-05] MEDS: FERROUS SULFATE 325 MG TABLET PO (10:55)
[2022-02-05] MEDS: MONTELUKAST 10 MG TABLET PO (10:56)
[2022-02-05] MEDS: MULTIVITAMIN 1 TABLET 1 TAB PO (10:56)
[2022-02-05] MEDS: METOPROLOL ER 50 MG TABLET 100 MG PO (10:56)
[2022-02-05] MEDS: MAGNESIUM HYDROXIDE 30 ML UDC PO (10:57)
--- NOTE | 2022-02-05 12:27 | CM.DANOTE ---
Initial DCP Assessment Note Pt is a 76 yo male, resident of [place], now POD#[address] Barbosa PCP: Romi Tavera Payer: [facility] Reviewed chart, pt discussed in multidisciplinary rounds this morning. Patient familiar to this team from prior admissions. Patient is a known heavy alcohol user per team (based on severe sx of w/d during previous stays) and is suspected of under reporting alcohol use. Orthopedic H+P does not list ETOH abuse in PMH. Patient presented 5.09.30 to the ER after a GLF while heavily intoxicated by means of ETOH, benzos and opiates (home meds per spouse). Patient/spouse reported that patient ran out of Trazadone so patient used hard liquor for sleep. Report no concern re: ETOH use. Patient admitted now to 226 to recover from TLIF, therapies pending. Per nursing, patient w/anxiousness and restlessness throughout the night last night. Patient indp at baseline per patient/spouse and plan is for return home w/supportive spouse to assist upon DC. CELESTINA Dominguez Discharge Planning/Care Management CM Discharge Assessment Start: 02/05/22 11:52 Freq: Status: Active Protocol: Document 02/05/22 11:53 [facility] (Rec: 02/05/22 12:27 [facility] [id number]) Discharge Planning Assessment Assigned Deck Officer CELESTINA Gutierrez DPOA/Assigned Designee Name Cristel Mendiola, spouse Contact Information [phone] Advance Directives? No Advance Directives on File No History Provided By Medical Record Has Patient been admitted in last 30 No days? Comment Last admission was 5.3-5... Numerous admissions and ER visits in the last year. Falls , abd pain, pneumonia, asthma attack Prior Living Arrangements House Household Members spouse Type of transporation used prior to Relies on Others admit Independent with ADL's Yes Is patient alert and oriented? Yes: Forgetful according to chart Needs Assistance With Meal Prep,Managing Medications ,Home Chores / Shopping Comment Pt states that he has DME in the home from the last time he had knee surgery, and then last year ankle surgery Patient/Family Preference Home with Home Health,OP PT Therapy Barriers to Discharge Yes Comment Hx of ETOH w/d vs sundowning behavior vs reaction to Morphine/Dilaudid (?) It is suspected that pt does not accurately disclose the quantity of ETOH use at home Discharge Plan Home Transportation Arrangement Spouse will transport. Additional Comment No referrals initiated at this time, but will see how he does with therapy team.
--- NOTE | 2022-02-05 14:15 | PT.IPTN ---
Current Diagnoses Spinal stenosis, lumbar region with neurogenic claudication (02/04/22) Arthrodesis status (02/04/22) Surgery Performed Operation Date: 02/04/22 09:15 Actual Procedures p L2-3, L3-4 TLIF, L2-S1 PSF w. posterior instrumentation, L1-2 laminectomy - robot - Cinda Barbosa MD Physical Therapy Treatment Note M2 PT-IP Current Condition Start: 02/05/22 12:37 Freq: NEEDED Status: Active Protocol: Document 02/05/22 09:31 AB (Rec: 02/05/22 12:55 AB [id number]) Physical Therapy Current Condition Current Condition Evaluation Date 02/05/22 Treatment Diagnosis L2-S1 TLIF; difficulty in walking Onset Date 02/04/22 M3 PT-IP Subjective Start: 02/05/22 12:37 Freq: NEEDED Status: Active Protocol: Document 02/05/22 14:15 [facility] (Rec: 02/05/22 14:40 AB [id number]) Subjective Physical Therapy Visit Type Visit Start Time 14:15 Visit Stop Time 14:28 Total Visit Minutes 13 Number of ELECTRON[employer]QU[employer]MENT MAINT TECH Visits 0 Physical Therapy Visit Comments Patient Comments c/o increase back pain Therapy Pain Assessment Pain When Pain Assessed At Rest Location Back Scale Used pain scale not stated Pain Management Techniques Distraction,Modification of Treatment,Re-positioning, Timing of Activity with Medications M4 PT-IP Mobility and Gait Start: 02/05/22 12:37 Freq: NEEDED Status: Active Protocol: Document 02/05/22 14:15 AB (Rec: 02/05/22 14:40 AB [id number]) PT-Transfer Assessment Comments Mobility Comments pt restless in bed. c/o increase back pain. pt is very impulsive and not adhereing to back precautions and will just sit up from and supine to position. educated pt but pt is not able to follow due to c/o pain and decrease cognition. pt sat on EOB SBA. attempted sit to stand x 2 but pt unable with pt pushing to stand but lets go midway and unable to stand up. pt laid back in bed impulsively and again not adhereing to back precautions. attempted to calm pt but pt is very restless and continue to sit up and laid back down. pt unable to participate further with PT. informed nurse and nurse will be giving pt ativan . Left pt with nurse. M5 PT-IP Objective Assessments Start: 02/05/22 12:37 Freq: NEEDED Status: Active Protocol: Document 02/05/22 09:31 AB (Rec: 02/05/22 12:55 AB [id number]) Orientation Orientation/Cognition Level of Alertness Alert Orientation Name,Place,Situation Safety Awareness Decreased Safety Awareness Gross Range of Motion Lower Extremity ROM Assessment Within Functional Limits Strength Lower Extremity Strength Hip 4-/5 Knee 4/5 Sensation Assessment Sensation Sensation Description Numbness Comments Sensation Comments stated numbness on B lateral hips Muscle Tone Muscle Tone WNL Yes M6 PT-IP Treatment Start: 02/05/22 12:37 Freq: NEEDED Status: Active Protocol: Document 02/05/22 14:15 AB (Rec: 02/05/22 14:40 AB [id number]) Physical Therapy Treatment Education Education Provided Precautions,Safety M7 PT-IP Assessment and Plan Start: 02/05/22 12:37 Freq: NEEDED Status: Active Protocol: Document 02/05/22 14:15 AB (Rec: 02/05/22 14:40 AB [id number]) PT Summary Assessment and Plan Potential Rehabilitation Potential Fair Summary Impairments Pain,ROM,Strength,Balance, Coordination,Sensation,Tone, Cognition,Bed Mobility, Transfers,Gait,Activity Tolerance Progress Towards Goals Slow Progress due to Pain Assessment Summary pt is very restless this afternoon and c/o increase back pain. pt is very impulsive and does not adhere to back precautions. d/c plan depending on progress and if spouse will be able to assist pt safely at home. d/c plan : SNF vs home with assist and HHPT. Goals Bed Mobility Goal Independent Transfer Goal Independent,Front Wheeled Walker Gait Goal Independent,Front Wheel Walker Gait Distance 200 Days to Meet Goals 5 Frequency of Treatment Frequency Of Treatment Twice a Day Treatment Plan Physical Therapy Treatment Plan Bed Mobility Training,Transfer Training,Gait Training, Therapeutic Exercise,Balance Retraining,Post Op Education, Discharge Planning,Hot or Cold Pack,Neuromuscular Re-ed, Coordination Retraining,Manual Therapy Precautions Lumbar Precautions Log Roll,No Twisting,Limit Bending,Lifting Restriction of 10 lbs,Gait Belt above Incisional Area Recommendations To Nursing Amount of Assist Needed 2 Person Assist Discharge Recommendations PT Discharge Recommendations Home with 24/7 Assist Available,Home Health,SNF Rehab,Home vs SNF Transportation Needs at Discharge Private Vehicle,Wheelchair/ Cabulance
[2022-02-05] MEDS: hydrOXYzine pamoate 25 MG CAPSULE PO (16:28)
--- NOTE | 2022-02-05 17:47 | DI.RAD.S_ITS ---
PROCEDURE: XR CHEST 1V INDICATIONS: wheezing, fever TECHNIQUE: One view of the chest was acquired. COMPARISON: [facility], CR, XR CHEST 1V, 11/29/2021, 15:25. FINDINGS: Surgical changes and devices: Midline sternotomy Lungs and pleura: Lungs are clear. No pleural effusions or pneumothorax. Mediastinum: Mediastinal contours appear normal. Unchanged borderline cardiomegaly. Bones and chest wall: No suspicious bony lesions. Overlying soft tissues appear unremarkable. IMPRESSION: No evidence acute pulmonary process. Dictated by: Dany Smith M.D. on 02/05/2022 at 19:06 Approved by: Dany Smith M.D. on 02/05/2022 at 19:07
--- NOTE | 2022-02-05 17:49 | PM.EVENT ---
Event Note Date Patient Seen: 02/05/22 Time Patient Seen: 17:49 Event Note (Rapid Response, Code, or fall): Stopped up to check on pts progress throughout the day. Per RN report and PT notes, pt has been agitated and noncompliant with movement recommendations throughout the day. On my visit, pt is sitting in chair, somnolent and nonagitated but complaining of severe pain. He appears to be comfortable. He responds to questions appropriately, but forgets what he is saying mid-thought; he had to stop while telling me his birthday because he forgot the question. Per RN, he has also been wheezing all day, had a low-grade fever earlier (amenable to APAP), and has been noncompliant w/ spirometer use. Plan: D/c vistaril, d/c fentanyl patch. Will add Tramadol as an alternative for moderate pain control as well as IV fentanyl for severe break through pain. Hopefully, these changes will result in better cognition. Will order CXR.
[2022-02-05] MEDS: TRAMADOL 50 MG TABLET 100 MG PO (18:28)
[2022-02-05] MEDS: cloNIDine 0.1 MG TABLET 0.2 MG PO (19:58)
[2022-02-05] MEDS: SENNOSIDES 8.6 MG TABLET 17.2 MG PO (20:00)
[2022-02-05] MEDS: TRAZODONE 100 MG TABLET 400 MG PO (20:00)
[2022-02-06] VITALS (16 sets, daily range): BP systolic 95–135; BP diastolic 49–98; PULSE 86–105; RESP 14–20; TEMP 36.1–38.1; O2SAT 87–97
[2022-02-06] MEDS: LORazepam 1 MG TABLET PO ×2 (02:15→07:30)
[2022-02-06] MEDS: ALBUTEROL 2.5 MG/3 ML NEB (ADULT) INH ×2 (02:20→09:26)
[2022-02-06] MEDS: SODIUM CHLORIDE 0.9% FLUSH 10 ML IV ×5 (03:34→21:28)
[2022-02-06] MEDS: ACETAMINOPHEN 325 MG TABLET 650 MG PO ×2 (04:30→19:57)
[2022-02-06] MEDS: OXYCODONE IR 5 MG TABLET 10 MG PO ×4 (04:30→21:45)
[2022-02-06] MEDS: ONDANSETRON 4 MG/2 ML INJ IV (07:10)
--- NOTE | 2022-02-06 08:00 | PM.PNPO.1 ---
Subjective Subjective Date Patient Seen: 02/06/22 Time Patient Seen: 08:00 Interval history: Sitting up in chair with his legs up, says he is more comfortable with them down. Appears to be comfortable but complains of 'massive pain; it feels like my guts are being ripped out.' He is unable to be more specific than this. He denies leg pain. He says he is moving his bowels. His nurse says he is eating 50% or less of meals. When I ask him specifically about nausea, he tells me he just feels awful. He is somewhat more alert today than on my visit yesterday. Exam Vital Signs (past 8 hours): - 02/06/22 00:55 02/06/22 02:22 02/06/22 02:25 Temperature 97.0 F L Pulse Rate 102 H 97 H Respiratory Rate 20 20 Blood Pressure 95/52 L 135/76 Pulse Oximetry 93 93 Oxygen Delivery Method Nasal Cannula Oxygen Flow Rate 2 02/06/22 03:10 Temperature 98.6 F Pulse Rate 87 Respiratory Rate 20 Blood Pressure 118/64 Pulse Oximetry 97 Oxygen Delivery Method Oxygen Flow Rate 2 Oxygen Delivery Method Nasal Cannula Oxygen Flow Rate 2 Narrative Exam Narrative: 5/5 strength in quadriceps, hamstrings, DF, PF, EHL bilaterallly. Noncompliant with request to flex hips, but per nursing he has been frequently getting up to go to the bathroom on his own. Calves soft, compressible, nontender and without palpable cords or masses. Low back gauze dressing CDI. CXR yesterday was negative for acute pulmonary processes. Objective Labs Result Diagrams: 02/05/22 08:53 Labs: Laboratory Results - last 24 hr 02/05/22 08:53 Hgb 12.6 L Hct 35.4 L [facility] Medical History Achalasia Anginal pain Asthma Atrial fibrillation Cervical spinal stenosis Chronic obstructive pulmonary disease (10/23/16) COPD (chronic obstructive pulmonary disease) Coronary artery disease History of aortic dissection (~08/2007) Hypertension Ischemic cardiomyopathy Narcotic dependence Neck pain, chronic Ventricular bigeminy Surgical History (Updated 02/06/22 @ 10:23 by Lin Wayne PA-C) H/O arthroscopic knee surgery (11/15/17) History of arthroplasty of left knee (05/25/19) History of arthroplasty of right knee History of bilateral total hip arthroplasty History of cardiac cath (~03/2014) History of esophageal surgery History of incision and drainage (~2016) History of prior ablation treatment (~03/2017) History of surgery Hx of cholecystectomy Hx of hernia repair Hx of sinus surgery S/P CABG x 3 (~08/2007) S/P cervical spinal fusion S/P lumbar fusion Family History Mother Stroke Father Hypertension Social History household members: spouse Smoking Status: Former smoker alcohol intake: current substance use type: does not use Assessment & Plan Post-op Assessment and plan (1) S/P lumbar fusion: Assessment and Plan narrative: Pts recovery following lumbar fusion has been confounded by somnolence, confusion, and agitation. I have asked the hospitalist service to see this pt to evaluate and treat for possible ETOH withdrawal. Even with more stable mentation, this patient will need senior care for physical rehabilitation. (2) Hypertension: Assessment and Plan narrative: Pt has had multiple episodes of hypotension since admission; spoke w/ hospitalist service today and asked them to evaluate pt for help w/ HTN meds as well as possible ETOH withdrawal. Postoperative Procedures: Procedures Operation Date: 02/04/22 09:15 Actual Procedure Side Surgeon p L2-3, L3-4 TLIF, L2-S1 PSF w. posterior instrumentation, L1-2 laminectomy - robot Cinda Barbosa MD Postoperative day: 2
[2022-02-06] MEDS: MONTELUKAST 10 MG TABLET PO (09:44)
[2022-02-06] MEDS: METOPROLOL ER 50 MG TABLET 100 MG PO (09:45)
[2022-02-06] MEDS: DOCUSATE 100 MG CAPSULE PO (09:46)
[2022-02-06] MEDS: FUROSEMIDE 40 MG TABLET PO (09:46)
[2022-02-06] MEDS: FERROUS SULFATE 325 MG TABLET PO (09:46)
[2022-02-06] MEDS: MULTIVITAMIN 1 TABLET 1 TAB PO (09:46)
[2022-02-06] MEDS: MAGNESIUM HYDROXIDE 30 ML UDC PO ×2 (10:40→12:44)
[2022-02-06] MEDS: CODEINE/ACETAMINOPHEN 30/300 TABLET 2 TAB PO ×2 (11:12→15:32)
--- NOTE | 2022-02-06 11:25 | OT.IPNOTE ---
Pt still asleep as had Ativan earlier, therefore to check on the pt later.
--- NOTE | 2022-02-06 11:42 | OT.IPNOTE ---
Attempted to see pt for OT treatment and pt very drowsy, a bit confused as had Ativan earlier but adamant of not getting up at this time. Pt initially did not realize why he was in the hospital, and had to be told that he had a back sx.
--- NOTE | 2022-02-06 11:58 | PT-IP ANOTE ---
Spent several minutes encouraging patient to participate w/ PT but pt continues to refuse due to pain. Pt at first confused and not able to remember why he is in the hospital. RN aware.
[2022-02-06] MEDS: cloNIDine 0.1 MG TABLET 0.2 MG PO (12:08)
--- NOTE | 2022-02-06 13:38 | OT.IPNOTE ---
Attempted to see pt again for OT treatment and pt insists that he would like to stay sitting up in the recliner for now. Pt very sleepy and drifting back to sleep as therapist came to check on him.
--- NOTE | 2022-02-06 13:38 | PT-IP ANOTE ---
Attempted to see pt at 13:35, pt refused therapy again this PM, even refusing to move from chair to bed. Pt very lethargic and only opening his eyes minimally. Will check on pt tomorrow.
[2022-02-06] MEDS: SODIUM CHLORIDE 0.9% 500 ML 1000 ML IV (14:37)
[2022-02-06 15:21] LABS: Lactate (Lactic Acid) 1.4 mmol/L (0.7-2.1)
[2022-02-06 15:22] LABS: Alanine Aminotransferase 31 IU/L (<50); Albumin 3.6 g/dL (3.5-5.0); Albumin Globulin Ratio 1.3 (1.0-2.8); Alkaline Phosphatase 47 U/L (38-126); Aspartate Aminotransferase 90 IU/L (17-59); BUN Creatinine Ratio 19.2 (6-22); Bilirubin Total 0.8 mg/dL (0.2-1.3); Blood Urea Nitrogen 14 mg/dL (9-20); Calcium 8.1 mg/dL (8.4-10.2); Carbon Dioxide 33 mmol/L (22-32); Chloride 101 mmol/L (98-107); Estimated Glomerular Filt Rate > 60 mL/min (>60); Globulin 2.8 g/dL (1.7-4.1); Glucose 141 mg/dL (80-110); HEMOLYSIS < 15 (0-50); Potassium 3.8 mmol/L (3.4-5.1); Sodium 137 mmol/L (137-145); Total Protein 6.4 g/dL (6.3-8.2)
[2022-02-06] MEDS: AZITHROMYCIN 500 MG in DEXTROSE 5% IN WATER 250 ML 250 MG IV (15:32)
[2022-02-06] MEDS: ALBUTEROL/IPRATROPIUM 3 ML AMPUL INH ×2 (15:54→20:00)
[2022-02-06 15:59] LABS: Fractionated Inspired Oxygen 21; HCO3 ABG 32 mmol/L (22-26); Oxygen Saturation ABG 87 % (95-100); PCO2 ABG 52.6 mmHg (35-45); PO2 ABG 55 mmHg (80-100); TCO2 ABG 33 mmol/L (21-31); pH ABG 7.39 (7.35-7.45)
[2022-02-06 16:46] LABS: Add Manual Diff / Slide Review NO; Basophils Absolute Auto 100 /uL (0-100); Basophils Percent Auto 0.6 % (0-2); Eosinophils Absolute Auto 100 /uL (0-450); Eosinophils Percent Auto 1.5 % (2-4); Hematocrit 31.5 % (41-53); Hemoglobin 11.1 g/dL (13.5-17.5); Lymphocytes Absolute Auto 1200 /uL (1100-4500); Lymphocytes Percent Auto 13.8 % (25-40); Mean Corpuscular HGB Conc 35.2 % (30-36); Mean Corpuscular Hemoglobin 32.7 PG (26-34); Mean Corpuscular Volume 92.8 fL (80-100); Monocytes Absolute Auto 1300 /uL (0-900); Monocytes Percent Auto 15.8 % (3-14); Neutrophils Absolute Auto 5700 /uL (1500-7000); Neutrophils Percent Auto 68.3 % (50-75); Platelet Count 221 X10^3/uL (150-400); Red Cell Distribution Width 13.2 % (11.6-14.8); White Blood Cell Count 8.4 X10^3/uL (4.5-11.0)
--- NOTE | 2022-02-06 17:37 | DI.CT.S_ITS ---
PROCEDURE: CT HEAD/BRAIN WO CON INDICATIONS: confusion TECHNIQUE: Noncontrast 4.5 mm thick angled axial sections acquired from the foramen magnum to the vertex, with coronal and sagittal reformats. For radiation dose reduction, the following was used: automated exposure control, adjustment of mA and/or kV according to patient size. COMPARISON: [facility], CT, CT HEAD/BRAIN WO CON, 12/08/2021, 20:47. [facility], CT, CT HEAD/BRAIN WO CON, 04/17/2021, 12:21. FINDINGS: Image quality: Excellent. CSF spaces: Basal cisterns are patent. No extra-axial fluid collections. The ventricles are symmetric in size and shape. Brain: No intracranial bleeds or masses. There is cerebral volume loss for age, with resultant ventricular and sulcal prominence. There are periventricular and deep white matter chronic small vessel ischemic changes. There is intracranial internal carotid artery atherosclerosis. Small right remote lacunar infarct is again noted. Skull and face: Calvarium and visualized facial bones appear intact, without suspicious lesions. Sinuses: Stable remodeling of the left maxillary sinus compatible with sequela of chronic sinusitis. Visualized sinuses and mastoids are clear. IMPRESSION: 1. CT head without acute intracranial abnormalities or acute calvarial fractures. 2. Age-related senescent changes and sequela of chronic small vessel ischemic disease. Dictated by: Ajay Irizarry M.D. on 02/06/2022 at 18:13 Approved by: Ajay Irizarry M.D. on 02/06/2022 at 18:16
--- NOTE | 2022-02-06 17:54 | P.HP_ITS ---
History of Present Illness History of Present Illness Date Patient Seen: 02/06/22 Time Patient Seen: 15:00 Chief complaint: INPT Narrative: Mr. Yo is a 76M with PMH afib, COPD, CAD, prior aortic disection s/p graft, cardiomyopathy who was admitted for elective lumbar fusion. This occurred on 02/04, he has had intermittent confusion and lethargy since then, reportedly with moments of agitation. When I see him he is sitting in a chair and quite drowsy. He has no specific complaints. He can't tell me much about why he is here in the hospital. UA was done 02/04 which was negative for infection. Chest xray done last night showed no acute process. Medicine is consulted to help manage his encephalopathy. Patient History Medical History Achalasia Anginal pain Asthma Atrial fibrillation Cervical spinal stenosis Chronic obstructive pulmonary disease (10/23/16) COPD (chronic obstructive pulmonary disease) Coronary artery disease History of aortic dissection (~08/2007) Hypertension Ischemic cardiomyopathy Narcotic dependence Neck pain, chronic Ventricular bigeminy Surgical History H/O arthroscopic knee surgery (11/15/17) History of arthroplasty of left knee (05/25/19) History of arthroplasty of right knee History of bilateral total hip arthroplasty History of cardiac cath (~03/2014) History of esophageal surgery History of incision and drainage (~2016) History of prior ablation treatment (~03/2017) History of surgery Hx of cholecystectomy Hx of hernia repair Hx of sinus surgery S/P CABG x 3 (~08/2007) S/P cervical spinal fusion S/P lumbar fusion Family & Social History Family History Mother Stroke Father Hypertension Social History: household members spouse Prior Living Arrangements House Safety & Behavioral: Feels Safe in Current Yes Environment Been Physically Hurt or No Threatened By a Person Suicidal Ideation Description None Suicide Plan Description No Plan Tobacco & Substance use: Tobacco type cigarettes Smoking Status Former smoker alcohol intake current alcohol intake frequency 0-2 drinks per day Substance Use Type does not use Meds Home Medications and Allergies Home Medications Medication Instructions Recorded Confirmed Type multivitamin (Multiple Vitamins 1 tab PO DAILY ##0 12/21/16 02/04/22 History tablet) fluticasone propionate 50 1 spray intranasal DAILY PRN 11/03/17 02/04/22 History mcg/actuation nasal Allergy Symptoms ##0 spray,suspension levalbuterol tartrate 45 1 puff inhalation Q4-6H PRN 06/23/18 02/04/22 Rx mcg/actuation aerosol inhaler shortness of breath or wheezing (Xopenex HFA) #15 grams cetirizine 10 mg capsule (Zyrtec) 10 mg PO DAILY 05/23/19 02/04/22 History ferrous sulfate 325 mg (65 mg 325 mg PO DAILY 10/20/19 02/04/22 History iron) tablet,delayed release acetaminophen 325 mg tablet 650 mg PO Q6H PRN pain #60 tabs 11/07/20 01/27/22 Rx (Athenol) glipizide 2.5 mg tablet, extended 2.5 mg PO DAILY 10/09/21 02/04/22 History release 24 hr (Glucotrol XL) meclizine 25 mg tablet 25 mg PO QID PRN vertigo #30 tabs 10/10/21 02/04/22 Rx clonidine HCl 0.1 mg tablet 0.2 mg PO BID 12/09/21 02/04/22 History lisinopril 10 mg tablet 10 mg PO DAILY 12/09/21 02/04/22 History trazodone 100 mg tablet 400 tab PO BEDTIME 30 days #120 12/11/21 02/04/22 Rx tabs acetaminophen 300 mg-codeine 30 mg 2 tab PO Q4H PRN Pain (Scale Score 02/04/22 02/04/22 History tablet 4-6) furosemide 40 mg tablet 40 mg PO DAILY 02/04/22 02/04/22 History metoprolol succinate 100 mg 100 mg PO DAILY 02/04/22 02/04/22 History tablet,extended release 24 hr montelukast 10 mg tablet 10 mg PO DAILY 02/04/22 02/04/22 History Allergies Allergy/AdvReac Type Severity Reaction Status Date / Time diazepam [From Valium] Allergy Severe Confusion Verified 02/04/22 08:21 hydromorphone [From Dilaudid] Allergy Severe Hallucinating, Verified 02/04/22 08:21 He gets out of his mind morphine Allergy Severe Hallucinating, Verified 02/04/22 08:21 He gets out of his mind celecoxib [CELECOXIB] Allergy Mild SWELLING Verified 02/04/22 08:04 latex [LATEX] Allergy Mild RASH Verified 02/04/22 08:04 W/EXTENDED EXPOSURE Sulfa (Sulfonamide Allergy Mild RASH Verified 02/04/22 08:04 Antibiotics) [SULFA (SULFONAMIDE ANTIBIOTICS)] varenicline [VARENICLINE] AdvReac Severe Paranoia Verified 02/04/22 08:04 buprenorphine [BUPRENORPHINE] AdvReac Mild NAUSEA, Verified 02/04/22 08:04 DIZZINESS hyoscyamine [HYOSCYAMINE] AdvReac Mild LEG Verified 02/04/22 08:04 JERKING, ANXIETY, NAUSEA W/I MINUTES Wokrlmg-CNN-DeO Reductase AdvReac Mild WEAK Verified 02/04/22 08:04 Inhibitor MUSCLES [[id number] REDUCTASE INHIBITOR] Review of Systems Review of Systems Narrative: 14 systems reviewed and negative aside from what is noted in HPI Exam Vital Signs (past 8 hours): - 02/06/22 12:04 02/06/22 12:08 02/06/22 12:46 Temperature 99.9 F H 98.8 F Pulse Rate 87 87 Respiratory Rate 16 Blood Pressure 121/93 H 121/98 H Pulse Oximetry 92 Oxygen Delivery Method Oxygen Flow Rate 0 02/06/22 14:35 02/06/22 15:54 02/06/22 15:57 Temperature 99.5 F Pulse Rate 105 H Respiratory Rate 14 Blood Pressure 98/60 Pulse Oximetry 97 87 L 94 Oxygen Delivery Method Room Air Nasal Cannula Oxygen Flow Rate 1 2 Oxygen Delivery Method Nasal Cannula Oxygen Flow Rate 2 Narrative Exam Narrative: GEN: no acute distress, lethargic HEENT: moist mucous membranes NECK: trachea midline, no JVD CV: regular rate and rhythm, no murmurs PULM: poor air movement, bilaterally ABD: soft, nontender, nondistended, no organomegaly EXT: warm and well perfused no edema NEURO: confuse, moving all extremities Objective Labs Result Diagrams: 02/06/22 15:01 02/06/22 15:01 Labs: Laboratory Results - last 24 hr 02/06/22 02/06/22 02/06/22 15:01 15:01 15:01 WBC 8.4 RBC 3.40 L Hgb 11.1 L Hct 31.5 L MCV 92.8 MCH 32.7 MCHC 35.2 RDW 13.2 Plt Count 221 Neut % (Auto) 68.3 Lymph % (Auto) 13.8 L [place] % (Auto) 15.8 H Eos % (Auto) 1.5 L Baso % (Auto) 0.6 Neut # (Auto) 5700 Lymph # (Auto) 1200 [place] # (Auto) 1300 H Eos # (Auto) 100 Baso # (Auto) 100 ABG pH ABG pCO2 ABG pO2 ABG HCO3 ABG Total CO2 ABG O2 Saturation ABG Base Excess FiO2 Sodium 137 Potassium 3.8 Chloride 101 Carbon Dioxide 33 H BUN 14 Creatinine 0.73 Estimated GFR > 60 BUN/Creatinine Ratio 19.2 Glucose 141 H Lactate 1.4 Calcium 8.1 L Total Bilirubin 0.8 AST 90 H ALT 31 Alkaline Phosphatase 47 Total Protein 6.4 Albumin 3.6 Globulin 2.8 Albumin/Globulin Ratio 1.3 02/06/22 15:49 WBC RBC Hgb Hct MCV MCH MCHC RDW Plt Count Neut % (Auto) Lymph % (Auto) [place] % (Auto) Eos % (Auto) Baso % (Auto) Neut # (Auto) Lymph # (Auto) [place] # (Auto) Eos # (Auto) Baso # (Auto) ABG pH 7.39 ABG pCO2 52.6 H ABG pO2 55 L ABG HCO3 32 H ABG Total CO2 33 H ABG O2 Saturation 87 L ABG Base Excess 7.0 H FiO2 21 Sodium Potassium Chloride Carbon Dioxide BUN Creatinine Estimated GFR BUN/Creatinine Ratio Glucose Lactate Calcium Total Bilirubin AST ALT Alkaline Phosphatase Total Protein Albumin Globulin Albumin/Globulin Ratio Assessment & Plan Assessment & Plan narrative: Mr. Yo was admitted for an elective procedure, underwent lumbar fusion, medicine is consulted for confusion and lethargy. 1. Acute encephalopathy -etiology not clear at the moment, he is mostly lethargic, think less likely etoh withdrawal -ABG ordered and CO2 not consistent with hypercarbia -chest xray and ua were ordered for admitting service which were negative -recheck ua -labs look reassuring with normal white count and no concerning findings on bmp -CT head ordered -suspect could be sensitive to polypharmacy, limit opiates 2. COPD -mild acute exacerbation -added azithromycin, plan for 5 days -ordered nebs and steroids as well We will continue to follow along with you. CODE: Full Proxy: Cristel Mendiola I have utilized all available resources to reconcile the patient's home medications. Time Spent With Patient Critical Care time: I spent a total of [] minutes of critical care time on this patient's care today; this time is exclusive of procedural time. Quality MIPS - Admit I confirm the patient?s Advance Care Plan is present, Code status is documented, Surrogate decision maker is in patient?s record [If Yes, STOP here]: Yes
[2022-02-06] MEDS: TRAMADOL 50 MG TABLET 100 MG PO (18:26)
--- NOTE | 2022-02-06 18:34 | DI.CT.S_ITS ---
PROCEDURE: CT ABDOMEN PELVIS W CON INDICATIONS: fever, abdominal pain TECHNIQUE: After the administration of IV contrast, axial sections were acquired from the lung bases to the pubic symphysis. Coronal and sagittal reformats were performed. For radiation dose reduction, the following was used: automated exposure control, adjustment of mA and/or kV according to patient size. COMPARISON: [facility], CT, CT LUMBAR SPINE WO CON, 01/22/2022, 14:03. [facility], CT, CT ABDOMEN PELVIS W CON, 06/23/2018, 11:21. FINDINGS: Image quality: There is mild motion artifact. Extensive streak artifact is also present from patient's surgical hardware. Lung bases: There is bilateral atelectasis posteriorly in the lower lobes. Heart: Heart is mildly enlarged. ABDOMEN: Liver: There is hypoattenuation of the liver consistent with fatty infiltration. Gallbladder: Surgically absent. Biliary ducts: No biliary ductal dilatation. Pancreas: Unremarkable. Spleen: Normal in size. Adrenal Glands: No adrenal nodules. Kidneys and Ureters: No hydronephrosis. There is nonspecific mild perinephric stranding redemonstrated bilaterally. Stomach and Bowel: Stomach, small bowel loops, and colon are normal in caliber and wall thickness. The appendix is normal in appearance. There is colonic diverticulosis without acute diverticulitis. There are air-fluid levels throughout the colon suggestive of a gastroenteritis. No abnormal dilatation or transition points to suggest obstruction. Peritoneum: No abnormal intraperitoneal fluid. No free air. Ventral Wall: No hernia. Abdominal Nodes: No retroperitoneal or mesenteric adenopathy by size criteria. Vessels: Aorta and inferior vena cava are normal in size. PELVIS: Pelvic Organs: Unremarkable. Bladder: Unremarkable. Pelvic Nodes: No enlarged lymph nodes. Miscellaneous: No inguinal hernias are seen. Bones: There are postsurgical changes consistent with interval revision in the lumbar spine with posterior fusion now demonstrated at the L2 through S1 levels associated with bilateral pedicle screws and posterior fixation rods. Intervertebral spaces are also demonstrated at L2-L3, L3-L4, L4-5, and L5-S1. There is edema within the posterior paraspinous musculature and subcutaneous soft tissues with scattered fluid and soft tissue gas consistent with postsurgical changes. Associated infection cannot be excluded. No definite loculated abscess collection is identified but evaluation is limited by metallic streak artifact. Bilateral hip prostheses are also redemonstrated. Visualized osseous structures demonstrate no suspicious focal lesions. IMPRESSION: 1. Interval postsurgical changes consistent with revision of surgical fusion in the lower lumbar spine. 2. Postsurgical changes are demonstrated in the posterior paraspinous soft tissues including gas and fluid within the paraspinous musculature and subcutaneous soft tissues. Associated infection cannot be excluded. 3. Scattered air-fluid levels throughout the colon suggestive of a gastroenteritis or ileus. No evidence of obstruction. Dictated by: Chapincito Rodriguez M.D. on 02/06/2022 at 22:15 Approved by: Chapincito Rodriguez M.D. on 02/06/2022 at 22:28
[2022-02-06] MEDS: TRAZODONE 100 MG TABLET 400 MG PO (19:57)
--- NOTE | 2022-02-06 21:26 | PC.NURSE ---
Pt. just came back from his abdominal CT. Calmed & resting quietly, will cont. POC & monitor.
[2022-02-07] VITALS (11 sets, daily range): BP systolic 113–153; BP diastolic 62–75; PULSE 72–97; RESP 16–24; TEMP 36.3–37.3; O2SAT 92–96
--- NOTE | 2022-02-07 01:13 | PC.NURSE ---
Pt. declined sleeping pills, 2 PA with FWW & a gait belt to the BSC. Small watery stool + inc. in his brief. Can not get comfortable in bed, so we transferred him in the recliner. Sitting in the recliner now & less restless, chair alarm clip to his gown, will monitor.
[2022-02-07] MEDS: OXYCODONE IR 5 MG TABLET 10 MG PO ×3 (02:46→17:56)
[2022-02-07] MEDS: ACETAMINOPHEN 325 MG TABLET 650 MG PO ×4 (02:46→21:41)
--- NOTE | 2022-02-07 02:59 | PC.NURSE ---
Trying to get OOB, states I have to pee 2 persons max assist to the BSC. He was not able to void, bladder scanned showed 291 cc in his bladder. C/O back pain states my back is killing me. Rated pain level @10/10, medicated with 10 mg. of Oxycodone & 650 mg. of Tylenol. Encouraged him to get some sleep, not sleeping well since he was admitted to room 224. Will cont. POC & monitor.
[2022-02-07] MEDS: TRAMADOL 50 MG TABLET 100 MG PO ×2 (04:44→19:42)
[2022-02-07] MEDS: predniSONE 20 MG TABLET PO (05:48)
[2022-02-07 07:29] LABS: Add Manual Diff / Slide Review NO; Basophils Absolute Auto 100 /uL (0-100); Basophils Percent Auto 0.6 % (0-2); Eosinophils Absolute Auto 200 /uL (0-450); Hematocrit 30.2 % (41-53); Hemoglobin 10.7 g/dL (13.5-17.5); Lymphocytes Absolute Auto 1200 /uL (1100-4500); Lymphocytes Percent Auto 15.4 % (25-40); Mean Corpuscular HGB Conc 35.5 % (30-36); Mean Corpuscular Hemoglobin 32.8 PG (26-34); Mean Corpuscular Volume 92.4 fL (80-100); Monocytes Absolute Auto 1100 /uL (0-900); Monocytes Percent Auto 14.2 % (3-14); Neutrophils Absolute Auto 5400 /uL (1500-7000); Neutrophils Percent Auto 67.8 % (50-75); Platelet Count 230 X10^3/uL (150-400); Red Blood Cell Count 3.27 X10^6/uL (4.5-5.9)
[2022-02-07 07:38] LABS: Lactate (Lactic Acid) 0.8 mmol/L (0.7-2.1)
[2022-02-07 07:39] LABS: Alanine Aminotransferase 36 IU/L (<50); Albumin 3.6 g/dL (3.5-5.0); Albumin Globulin Ratio 1.2 (1.0-2.8); Alkaline Phosphatase 51 U/L (38-126); Aspartate Aminotransferase 98 IU/L (17-59); BUN Creatinine Ratio 20.3 (6-22); Bilirubin Total 0.7 mg/dL (0.2-1.3); Blood Urea Nitrogen 15 mg/dL (9-20); Calcium 8.3 mg/dL (8.4-10.2); Carbon Dioxide 33 mmol/L (22-32); Chloride 100 mmol/L (98-107); Estimated Glomerular Filt Rate > 60 mL/min (>60); Glucose 117 mg/dL (80-110); HEMOLYSIS < 15 (0-50); Sodium 137 mmol/L (137-145); Total Protein 6.6 g/dL (6.3-8.2)
[2022-02-07] MEDS: ALBUTEROL/IPRATROPIUM 3 ML AMPUL INH ×4 (09:00→19:56)
--- NOTE | 2022-02-07 09:12 | PM.PNPO.1 ---
Subjective Subjective Date Patient Seen: 02/07/22 Time Patient Seen: 09:12 Interval history: Sitting in chair with breakfast in front of him. Remains somnolent, though still easy to arouse and is able to stay awake throughout questions today. Continues to complain of back pain, denies leg pain. Said he was too dizzy to work with PT yesterday. BPs appear to be normal. Exam Vital Signs (past 8 hours): - 02/07/22 04:00 02/07/22 08:00 Temperature 97.4 F L 98 F Pulse Rate 86 85 Respiratory Rate 24 18 Blood Pressure 118/67 153/75 H Pulse Oximetry 96 92 Oxygen Flow Rate 2 0 Oxygen Delivery Method Room Air Oxygen Flow Rate 0 Narrative Exam Narrative: Refused PT yesterday. Hospitalist work up included CTs of head and abdomen, both of which were unremarkable. Cooperative with exam this morning; 5/5 strength in legs, low back dressing CDI. Objective Labs Result Diagrams: 02/07/22 07:06 02/07/22 07:06 Labs: Laboratory Results - last 24 hr 02/06/22 02/06/22 02/06/22 15:01 15:01 15:01 WBC 8.4 RBC 3.40 L Hgb 11.1 L Hct 31.5 L MCV 92.8 MCH 32.7 MCHC 35.2 RDW 13.2 Plt Count 221 Neut % (Auto) 68.3 Lymph % (Auto) 13.8 L [place] % (Auto) 15.8 H Eos % (Auto) 1.5 L Baso % (Auto) 0.6 Neut # (Auto) 5700 Lymph # (Auto) 1200 [place] # (Auto) 1300 H Eos # (Auto) 100 Baso # (Auto) 100 ABG pH ABG pCO2 ABG pO2 ABG HCO3 ABG Total CO2 ABG O2 Saturation ABG Base Excess FiO2 Sodium 137 Potassium 3.8 Chloride 101 Carbon Dioxide 33 H BUN 14 Creatinine 0.73 Estimated GFR > 60 BUN/Creatinine Ratio 19.2 Glucose 141 H Lactate 1.4 Calcium 8.1 L Total Bilirubin 0.8 AST 90 H ALT 31 Alkaline Phosphatase 47 Total Protein 6.4 Albumin 3.6 Globulin 2.8 Albumin/Globulin Ratio 1.3 02/06/22 02/07/22 02/07/22 15:49 07:06 07:06 WBC 8.0 RBC 3.27 L Hgb 10.7 L Hct 30.2 L MCV 92.4 MCH 32.8 MCHC 35.5 RDW 13.0 Plt Count 230 Neut % (Auto) 67.8 Lymph % (Auto) 15.4 L [place] % (Auto) 14.2 H Eos % (Auto) 2.0 Baso % (Auto) 0.6 Neut # (Auto) 5400 Lymph # (Auto) 1200 [place] # (Auto) 1100 H Eos # (Auto) 200 Baso # (Auto) 100 ABG pH 7.39 ABG pCO2 52.6 H ABG pO2 55 L ABG HCO3 32 H ABG Total CO2 33 H ABG O2 Saturation 87 L ABG Base Excess 7.0 H FiO2 21 Sodium 137 Potassium 4.0 Chloride 100 Carbon Dioxide 33 H BUN 15 Creatinine 0.74 Estimated GFR > 60 BUN/Creatinine Ratio 20.3 Glucose 117 H Lactate Calcium 8.3 L Total Bilirubin 0.7 AST 98 H ALT 36 Alkaline Phosphatase 51 Total Protein 6.6 Albumin 3.6 Globulin 3.0 Albumin/Globulin Ratio 1.2 02/07/22 07:06 WBC RBC Hgb Hct MCV MCH MCHC RDW Plt Count Neut % (Auto) Lymph % (Auto) [place] % (Auto) Eos % (Auto) Baso % (Auto) Neut # (Auto) Lymph # (Auto) [place] # (Auto) Eos # (Auto) Baso # (Auto) ABG pH ABG pCO2 ABG pO2 ABG HCO3 ABG Total CO2 ABG O2 Saturation ABG Base Excess FiO2 Sodium Potassium Chloride Carbon Dioxide BUN Creatinine Estimated GFR BUN/Creatinine Ratio Glucose Lactate 0.8 Calcium Total Bilirubin AST ALT Alkaline Phosphatase Total Protein Albumin Globulin Albumin/Globulin Ratio [facility] Medical History Achalasia Anginal pain Asthma Atrial fibrillation Cervical spinal stenosis Chronic obstructive pulmonary disease (10/23/16) COPD (chronic obstructive pulmonary disease) Coronary artery disease History of aortic dissection (~08/2007) Hypertension Ischemic cardiomyopathy Narcotic dependence Neck pain, chronic Ventricular bigeminy Surgical History H/O arthroscopic knee surgery (11/15/17) History of arthroplasty of left knee (05/25/19) History of arthroplasty of right knee History of bilateral total hip arthroplasty History of cardiac cath (~03/2014) History of esophageal surgery History of incision and drainage (~2016) History of prior ablation treatment (~03/2017) History of surgery Hx of cholecystectomy Hx of hernia repair Hx of sinus surgery S/P CABG x 3 (~08/2007) S/P cervical spinal fusion S/P lumbar fusion Family History Mother Stroke Father Hypertension Social History household members: spouse Smoking Status: Former smoker alcohol intake: current substance use type: does not use Assessment & Plan Post-op Assessment and plan (1) S/P lumbar fusion: Assessment and Plan narrative: Given current noncompliance w/ PT, pt will likely need SNF once he is medically cleared. (2) Encephalopathy: Assessment and Plan narrative: Spoke w/ Dr Santiago this morning; repeating UA. Blood cx pending. Appreciate help with this patient. Postoperative Procedures: Procedures Operation Date: 02/04/22 09:15 Actual Procedure Side Surgeon p L2-3, L3-4 TLIF, L2-S1 PSF w. posterior instrumentation, L1-2 laminectomy - robot Cinda Barbosa MD Postoperative day: 3
[2022-02-07] MEDS: cloNIDine 0.1 MG TABLET 0.2 MG PO ×2 (09:24→21:40)
[2022-02-07] MEDS: LORATADINE 10 MG TABLET PO (09:24)
[2022-02-07] MEDS: FUROSEMIDE 40 MG TABLET PO (09:24)
[2022-02-07] MEDS: THIAMINE 100 MG TABLET PO (09:24)
[2022-02-07] MEDS: SODIUM CHLORIDE 0.9% FLUSH 10 ML IV ×2 (09:24→21:41)
[2022-02-07] MEDS: lisinopriL 10 MG TABLET PO (09:24)
[2022-02-07] MEDS: METOPROLOL ER 50 MG TABLET 100 MG PO (09:24)
[2022-02-07] MEDS: FOLIC ACID 1 MG TABLET PO (09:24)
[2022-02-07] MEDS: MONTELUKAST 10 MG TABLET PO (09:25)
[2022-02-07] MEDS: FERROUS SULFATE 325 MG TABLET PO (09:25)
[2022-02-07] MEDS: MULTIVITAMIN 1 TABLET 1 TAB PO (09:25)
[2022-02-07 10:04] LABS: Appearance Urine UA CLEAR; Bilirubin Urine UA NEGATIVE (NEGATIVE); Color Urine UA YELLOW; Glucose Urine UA NEGATIVE (Negative); Ketones Urine UA TRACE (NEGATIVE); Leukocyte Esterase Urine UA NEGATIVE (NEGATIVE); Nitrite Urine UA NEGATIVE (Negative); Occult Blood Urine UA 1+ (Negative); Protein Urine UA 2+ (Negative); Urobilinogen Urine UA 0.2 E.U./dL (0.2); pH Urine UA 6.5 (4.5-8.0)
[2022-02-07 10:11] LABS: RBC Urine 5-10/HPF (0-5/HPF); WBC Urine 0-1/HPF (0-5/HPF)
[2022-02-07 10:12] LABS: Bacteria Urine None Seen; Culture Indicated Urine Cult Not Indicated
--- NOTE | 2022-02-07 10:50 | OT.IP.TRT ---
Current Diagnoses Encephalopathy, unspecified (02/04/22) Essential (primary) hypertension (02/04/22) Spinal stenosis, lumbar region with neurogenic claudication (02/04/22) Arthrodesis status (02/04/22) Surgery Performed Operation Date: 02/04/22 09:15 Actual Procedures p L2-3, L3-4 TLIF, L2-S1 PSF w. posterior instrumentation, L1-2 laminectomy - robot - Cinda Barbosa MD Occupational Therapy Treatment Note M2 OT-IP Current Condition Start: 02/05/22 10:47 Freq: Status: Active Protocol: Document 02/05/22 09:35 [facility] (Rec: 02/05/22 13:18 [facility] [id number]) Occupational Therapy Current Condition Current Condition Evaluation Date 02/05/22 Treatment Diagnosis S/p L2-3, L3-4TLIF, L2-5 PSF, L1-L2 lami Diagnosis Onset Date 02/04/22 Post Operative Precautions Lumbar Precautions Log Roll,No Twisting,Limit Bending,Lifting Restriction of 10 lbs,Gait Belt above Incisional Area M3 OT- IP Subjective and Pain Start: 02/05/22 10:47 Freq: Status: Active Protocol: Document 02/07/22 11:52 [facility] (Rec: 02/07/22 12:03 [facility] [id number]) OT- Subjective Occupational Therapy Visit Type Type Treatment Note Visit Start Time 10:27 Visit Stop Time 10:50 Total Visit Minutes 23 Occupational Therapy Visit Comments Patient Comments Pt needing lots of encouragement to participate and follow commands for therapy. Patient/Caregiver Goals To go home. OT Pain Assessment Pain When Pain Assessed During Mobility Pain Present Pain Present Pain Reported Location Back Pain Behaviors Facial Grimacing,Moaning M4 OT- IP ADL's Start: 02/05/22 10:47 Freq: Status: Active Protocol: Document 02/07/22 11:52 [facility] (Rec: 02/07/22 12:03 [facility] [id number]) OT ADL-Grooming General Evaluation Grooming Ability Minimal Assistance Areas Needing Assistance Retrieving/Set-up of Grooming Items Comments OT Grooming Comments Pt able to wash his face after set-up of wash cloth and brush his hair and needing GERARDO for completeness. OT ADL-Oral Care General Eval Oral Care Ability Standby Assistance Areas of Assistance Retrieving/Set-Up of Items Comments Oral Care Comments Set-up assist and cues to complete take. OT ADL-Dressing Comments OT Dressing Comments Not performed, pt too groogy/ drowsy and not following commands well at this time. OT ADL-Toileting Comments OT Toileting Comments NOt performed. OT ADL-Bathing Comments OT Bathing Comments Not performed. M5 OT- IP IADL's Start: 02/05/22 10:47 Freq: Status: Active Protocol: Document 02/05/22 09:35 [facility] (Rec: 02/05/22 13:18 [facility] [id number]) OT-Instrumental Activities of Daily Living Home Safety Awareness Home Safety Comments At this time due to pt a bit impulsive and confused would be best for his to assist him for all needs at this time. M6 OT- IP Functional Cognition Start: 02/05/22 10:47 Freq: Status: Active Protocol: Document 02/07/22 11:52 [facility] (Rec: 02/07/22 12:03 [facility] [id number]) Cognitive Factors Limiting Selfcare Function Cognitive Ability Level of Alertness Confusional State,Drowsy Patient Orientation Name Attention Span Ability Unable to Focus,Unable to Sustain Attention Ability to Follow Commands Able to Follow One Step Commands with Increased Time, Able to Follow One Step Commands with Repetition Memory Description Short Term Impaired,Mcc Impaired,Working Impaired Cognitive Comments Cognitive Assessment Comments At this time pt mainly orientated to his name. Pt very confused and not able to recall his back precautions even after education 6 times. Pt having difficulty to initiate his movements as well . M7 OT- IP Mobility and Balance Start: 02/05/22 10:47 Freq: Status: Active Protocol: Document 02/07/22 11:52 [facility] (Rec: 02/07/22 12:03 [facility] [id number]) OT- Bed Mobility Assessment Supine to Sit Supine to Sit Assist Moderate Assistance,2 Person Assistance OT-Transfer Assessment Sit to and From Stand Sit to and from Stand Minimal Assistance,2 Person Assistance Transfers Transfer Ability Minimal Assistance,2 Person Assistance Comments Mobility Comments MODA x2 for bed mobility as pt having pain and difficulty to follow directions. GERARDO x2 to stand to FWw and able to transfer to the recliner. 2nd person for safety as pt is very drowsy and has been impulsive before. OT- Balance Assessment Sitting Balance and Reactions Static Sitting Balance Ability Good Dynamic Sitting Balance Ability Fair Standing Balance and Reactions Static Standing Balance Ability Fair M8 OT- IP Objective Assessments Start: 02/05/22 10:47 Freq: Status: Active Protocol: Document 02/05/22 09:35 [facility] (Rec: 02/05/22 13:18 [facility] [id number]) OT-Muscle Tone Assessment Muscle Tone WNL Yes M9 OT- IP Assessment and Plan Start: 02/05/22 10:47 Freq: Status: Active Protocol: Document 02/07/22 11:52 [facility] (Rec: 02/07/22 12:03 [facility] [id number]) OT Summary Assessment and Plan Potential Rehabilitation Potential Good Analytic Complexity at Evaluation Low Summary OT Impairments Balance,Functional Cognition, Functional Mobility,Grooming, Dressing,Toileting,Bathing, Toilet Transfers,Shower Transfers Progress Towards Goals Slow Progress due to Medical Issues,Slow Progress due to Cognition Assessment Summary Pt very drowsy and having trouble to follow commands for ADl and mobility needs at this time. Pt having difficulty to focus on recalling any on his back precautions even after repetition 6 times. Therefore pending progress and medical stability pt may need short skilled rehab versus home with 24/7 assist . Goals Grooming Goal Independent Dressing Goal Independent Toileting Goal Independent Bathing Goal Independent Toilet Transfer Goal Independent Shower Transfer Goal Independent Patient/Caregiver Education Goal Demonstrate Post-Op Precautions,Caregiver Independent Assisting Patient Days to Meet Goals 10 Frequency of Treatment Frequency Of Treatment Once a Day Treatment Plan OT Treatment Plan ADL Training,Functional Cognition Training,Functional Mobility,Patient/Family Education,Discharge Planning Other Treatment Recommendations and Next caregiver training, shower if Treatment Focus appropriate Discharge Recommendations OT Discharge Recommendations Home with 24/7 Assist Available,SNF Rehab,Home vs SNF Transportation Needs at Discharge Private Vehicle,Wheelchair/ Cabulance
--- NOTE | 2022-02-07 10:51 | PT.IPTN ---
Current Diagnoses Encephalopathy, unspecified (02/04/22) Essential (primary) hypertension (02/04/22) Spinal stenosis, lumbar region with neurogenic claudication (02/04/22) Arthrodesis status (02/04/22) Surgery Performed Operation Date: 02/04/22 09:15 Actual Procedures p L2-3, L3-4 TLIF, L2-S1 PSF w. posterior instrumentation, L1-2 laminectomy - robot - Cinda Barbosa MD Physical Therapy Treatment Note M2 PT-IP Current Condition Start: 02/05/22 12:37 Freq: NEEDED Status: Active Protocol: Document 02/05/22 09:31 AB (Rec: 02/05/22 12:55 AB [id number]) Physical Therapy Current Condition Current Condition Evaluation Date 02/05/22 Treatment Diagnosis L2-S1 TLIF; difficulty in walking Onset Date 02/04/22 M3 PT-IP Subjective Start: 02/05/22 12:37 Freq: NEEDED Status: Active Protocol: Document 02/07/22 10:27 KS (Rec: 02/07/22 12:00 KS [id number]) Subjective Physical Therapy Visit Type Type Treatment Note Visit Start Time 10:27 Visit Stop Time 10:51 Total Visit Minutes 24 Number of FREIGHT TALLIER Visits 1 Physical Therapy Visit Comments Patient Comments c/o increase back pain M4 PT-IP Mobility and Gait Start: 02/05/22 12:37 Freq: NEEDED Status: Active Protocol: Document 02/07/22 10:27 KS (Rec: 02/07/22 12:00 KS [id number]) PT-Bed Mobility Assessment Rolling Type of Rolling Log Rolling,Roll to Right Level of Assist Moderate Assistance,2 Person Assistance Supine to Sit Supine to Sit Moderate Assistance,2 Person Assistance Scooting Scooting to Edge of Bed Minimal Assistance PT-Transfer Assessment Sit to and From Stand Sit to and from Stand Minimal Assistance,2 Person Assistance,Use of Upper Extremities Equipment Transfer Assistive Device Gait Belt,Front Wheeled Walker Orthotic/Prosthetic Devices or Brace: No Transfers Transfer Destination Chair Transfer Technique ambulated w/ FWW Transfer Ability Level of Assist Minimal Assistance,2 Person Assistance,Use of Upper Extremities Comments Mobility Comments Pt in bed upon arrival from PT and OT, needing lots of encouragement to participate. Covered precautions several times , but pt still unable to recall throughout treatment. Mod A x2 and max cues for logroll and sidelying<>sit. Min A x2 and max cues for sit< >stand w/ FWW. Pt c/o increased pain when standing and requested to get back into bed. Able to take very small lateral steps towards HOB w/ Min A x2 and FWW mgmt. Pt sat down and then stated he was more comfortable in chair and agreed to transfer from bed to chair w/ much encouragement. Min A x2 for sit<>stand and stand step pivot w/ FWW from bed to chair w/ cues for FWW mgmt and sequencing. Pt left in chair w/ all needs in reach , alarm on, and ice placed at low back. Gait Assessment Gait Gait Assistance Required: Minimum Assistance,2 Person Assist Distance (Feet) 2 Able to Maintain Weight Bearing Status Yes During Gait Assistive Devices Assistive Device Gait Belt,Front Wheeled Walker Orthotic/Prosthetic Devices or Brace: No Gait Deviations General Gait Pattern Antalgic,Decreased Stride Length,Decreased Feet Clearance Factors Limiting Gait Function Factors Limiting Gait Function Decreased Activity Tolerance, Decreased Sensation,Decreased Strength,Difficulty Following Directions,Limited Range of Motion,Pain,Poor Balance,Poor Safety Awareness Comments Gait Comments Pt only able to tolerate steps during transfer and refused further ambulation. PT-Balance Assessment Sitting Balance and Reactions Static Sitting Balance Ability Fair Dynamic Sitting Balance Ability Fair Standing Balance and Reactions Static Standing Balance Ability Fair Dynamic Standing Balance Ability Fair Device Used FWW M5 PT-IP Objective Assessments Start: 02/05/22 12:37 Freq: NEEDED Status: Active Protocol: Document 02/05/22 09:31 AB (Rec: 02/05/22 12:55 AB [id number]) Orientation Orientation/Cognition Level of Alertness Alert Orientation Name,Place,Situation Safety Awareness Decreased Safety Awareness Gross Range of Motion Lower Extremity ROM Assessment Within Functional Limits Strength Lower Extremity Strength Hip 4-/5 Knee 4/5 Sensation Assessment Sensation Sensation Description Numbness Comments Sensation Comments stated numbness on B lateral hips Muscle Tone Muscle Tone WNL Yes M6 PT-IP Treatment Start: 02/05/22 12:37 Freq: NEEDED Status: Active Protocol: Document 02/07/22 10:27 KS (Rec: 02/07/22 12:00 KS [id number]) Physical Therapy Treatment Education Education Provided Precautions,Safety M7 PT-IP Assessment and Plan Start: 02/05/22 12:37 Freq: NEEDED Status: Active Protocol: Document 02/07/22 10:27 KS (Rec: 02/07/22 12:00 KS [id number]) PT Summary Assessment and Plan Potential Rehabilitation Potential Fair Summary Impairments Pain,ROM,Strength,Balance, Coordination,Sensation,Tone, Cognition,Bed Mobility, Transfers,Gait,Activity Tolerance Progress Towards Goals Slow Progress due to Pain Assessment Summary Pt required Mod A x2 for bed mobility and Min A x2 for sit< >stand and stand step pivot transfer today. Max cues for all tasks including FWW mgmt and step sequencing. Poor safety awareness and unable to recall spinal precautions after reviewing several times. d/c plan depending on progress and if spouse will be able to assist pt safely at home. At this time, pt may require SNF. Goals Bed Mobility Goal Independent Transfer Goal Independent,Front Wheeled Walker Gait Goal Independent,Front Wheel Walker Gait Distance 200 Days to Meet Goals 5 Frequency of Treatment Frequency Of Treatment Twice a Day Treatment Plan Physical Therapy Treatment Plan Bed Mobility Training,Transfer Training,Gait Training, Therapeutic Exercise,Balance Retraining,Post Op Education, Discharge Planning,Hot or Cold Pack,Neuromuscular Re-ed, Coordination Retraining,Manual Therapy Precautions Lumbar Precautions Log Roll,No Twisting,Limit Bending,Lifting Restriction of 10 lbs,Gait Belt above Incisional Area Recommendations To Nursing Amount of Assist Needed 2 Person Assist Discharge Recommendations PT Discharge Recommendations Home with 01/03 Assist Available,Home Health,SNF Rehab,Home vs SNF Transportation Needs at Discharge Private Vehicle,Wheelchair/ Cabulance
--- NOTE | 2022-02-07 13:31 | PT-IP ANOTE ---
Pt asleep upon arrival, difficult to awaken. Pt continues to be very confused and drowsy, difficulty keeping his eyes open. Refused PT due to fatigue.
[2022-02-07] MEDS: AZITHROMYCIN 500 MG in DEXTROSE 5% IN WATER 250 ML 250 MG IV (15:13)
--- NOTE | 2022-02-07 15:40 | CM.DPC ---
DCP Home Planning Per Ortho, pt making some progress but not medically stable to d/c yet today. Per PT/OT, pt actually ambulating fairly well but too confused to remember his precautions and high fall risk. Per RN, pt still quite confused and disoriented and spouse had been bedside earlier today and left for home. SW attempted to meet bedside with pt and explained role and inquired if spouse would be bedside and pt states I don't know. SW inquired how pt felt ambulating and he stated I don't know but was agreeable with SW calling spouse. SW called spouse Cristel and explained role and she confirms she feels pt has made good progress each day with his ambulation and cognitive abilities but still below baseline and she states they have a ramp into the house, a w/c if needed, walker, and 4 point cane. Spouse feels once pt gets home in his familiar environment he will improve faster and she will be bedside tomorrow and willing to participate in CG training. Spouse does not feel SNF needed at this time. Plan: SW to follow for PT/OT attempt at CG training tomorrow when spouse bedside towards confirming plan of home with likely HH and any further needs. CELESTINA Stark
--- NOTE | 2022-02-07 15:43 | P.PN_ITS ---
Subjective Subjective Date Patient Seen: 02/07/22 Time Patient Seen: 08:00 Interval history: Today has no complaints. However he is still confused and not really par ticipating in exam. Exam Vital Signs (past 8 hours): - 02/07/22 08:00 02/07/22 09:01 02/07/22 08:23 Temperature 98 F Pulse Rate 85 82 Respiratory Rate 18 16 Blood Pressure 153/75 H Pulse Oximetry 92 93 Oxygen Delivery Method Room Air Room Air Oxygen Flow Rate 0 02/07/22 11:07 02/07/22 13:55 02/07/22 15:35 Temperature 98 F Pulse Rate 72 88 74 Respiratory Rate 18 17 16 Blood Pressure 140/68 Pulse Oximetry 92 93 95 Oxygen Delivery Method Room Air Room Air Oxygen Flow Rate 0 Oxygen Delivery Method Room Air Oxygen Flow Rate 0 Narrative Exam Narrative: GEN: no acute distress, lethargic HEENT: moist mucous membranes NECK: trachea midline, no JVD CV: regular rate and rhythm, no murmurs PULM: poor air movement, bilaterally ABD: soft, nontender, nondistended, no organomegaly EXT: warm and well perfused no edema NEURO: confused, moving all extremities Objective Labs Result Diagrams: 02/07/22 07:06 02/07/22 07:06 Labs: Laboratory Results - last 24 hr 02/06/22 02/06/22 02/07/22 15:01 15:49 07:06 WBC 8.4 8.0 RBC 3.40 L 3.27 L Hgb 11.1 L 10.7 L Hct 31.5 L 30.2 L MCV 92.8 92.4 MCH 32.7 32.8 MCHC 35.2 35.5 RDW 13.2 13.0 Plt Count 221 230 Neut % (Auto) 68.3 67.8 Lymph % (Auto) 13.8 L 15.4 L Gila % (Auto) 15.8 H 14.2 H Eos % (Auto) 1.5 L 2.0 Baso % (Auto) 0.6 0.6 Neut # (Auto) 5700 5400 Lymph # (Auto) 1200 1200 Gila # (Auto) 1300 H 1100 H Eos # (Auto) 100 200 Baso # (Auto) 100 100 ABG pH 7.39 ABG pCO2 52.6 H ABG pO2 55 L ABG HCO3 32 H ABG Total CO2 33 H ABG O2 Saturation 87 L ABG Base Excess 7.0 H FiO2 21 Sodium Potassium Chloride Carbon Dioxide BUN Creatinine Estimated GFR BUN/Creatinine Ratio Glucose Lactate Calcium Total Bilirubin AST ALT Alkaline Phosphatase Total Protein Albumin Globulin Albumin/Globulin Ratio Urine Color Urine Appearance Urine pH Ur Specific [place] Urine Protein Urine Glucose (UA) Urine Ketones Urine Occult Blood Urine Nitrate Urine Bilirubin Urine Urobilinogen Ur Leukocyte Esterase Urine RBC Urine WBC Urine Bacteria Ur Culture Indicated? 02/07/22 02/07/22 02/07/22 07:06 07:06 09:57 WBC RBC Hgb Hct MCV MCH MCHC RDW Plt Count Neut % (Auto) Lymph % (Auto) Gila % (Auto) Eos % (Auto) Baso % (Auto) Neut # (Auto) Lymph # (Auto) Gila # (Auto) Eos # (Auto) Baso # (Auto) ABG pH ABG pCO2 ABG pO2 ABG HCO3 ABG Total CO2 ABG O2 Saturation ABG Base Excess FiO2 Sodium 137 Potassium 4.0 Chloride 100 Carbon Dioxide 33 H BUN 15 Creatinine 0.74 Estimated GFR > 60 BUN/Creatinine Ratio 20.3 Glucose 117 H Lactate 0.8 Calcium 8.3 L Total Bilirubin 0.7 AST 98 H ALT 36 Alkaline Phosphatase 51 Total Protein 6.6 Albumin 3.6 Globulin 3.0 Albumin/Globulin Ratio 1.2 Urine Color Yellow Urine Appearance Clear Urine pH 6.5 Ur Specific [place] 1.010 Urine Protein 2+ H Urine Glucose (UA) Negative Urine Ketones Trace H Urine Occult Blood 1+ H Urine Nitrate Negative Urine Bilirubin Negative Urine Urobilinogen 0.2 Ur Leukocyte Esterase Negative Urine RBC 5-10/hpf H Urine WBC 0-1/hpf Urine Bacteria None seen Ur Culture Indicated? Cult not indicated [facility] Medical History Achalasia Anginal pain Asthma Atrial fibrillation Cervical spinal stenosis Chronic obstructive pulmonary disease (10/23/16) COPD (chronic obstructive pulmonary disease) Coronary artery disease History of aortic dissection (~08/2007) Hypertension Ischemic cardiomyopathy Narcotic dependence Neck pain, chronic Ventricular bigeminy Surgical History H/O arthroscopic knee surgery (11/15/17) History of arthroplasty of left knee (05/25/19) History of arthroplasty of right knee History of bilateral total hip arthroplasty History of cardiac cath (~03/2014) History of esophageal surgery History of incision and drainage (~2016) History of prior ablation treatment (~03/2017) History of surgery Hx of cholecystectomy Hx of hernia repair Hx of sinus surgery S/P CABG x 3 (~08/2007) S/P cervical spinal fusion S/P lumbar fusion Family History Mother Stroke Father Hypertension Social History household members: spouse Smoking Status: Former smoker alcohol intake: current substance use type: does not use Assessment & Plan Assessment & Plan narrative: Mr. Yo was admitted for an elective procedure, underwent lumbar fusion, medicine is consulted for confusion and lethargy. 1. Acute encephalopathy -etiology not clear at the moment, he is mostly lethargic, think less likely e salvatore withdrawal -suspect related to delirium in setting of hospital and recent surgery -ABG ordered and CO2 not consistent with hypercarbia -chest xray and ua were ordered for admitting service which were negative -recheck ua, was also negative -labs look reassuring with normal white count and no concerning findings on bmp -CT head ordered and negative -limit opiates -CT abdomen showed gastroenteritis vs ileus, no significant diarrhea, consider further workup if clinical status changes 2. COPD -mild acute exacerbation -added azithromycin, plan for 5 days -ordered nebs and steroids as well We will continue to follow along with you. CODE: Full Proxy: Cristel Mendiola I have utilized all available resources to reconcile the patient's home medications. Time Spent With Patient Critical Care time: I spent a total of [] minutes of critical care time on this patient's care today; this time is exclusive of procedural time.
--- NOTE | 2022-02-07 17:22 | PC.NURSE ---
Pt wanted to talk to his , I transferred a call from the into Pt room phone. Pt yelled out into the hallway is parvin there is aprvin there. I entered the Pt's room, the Pt told me his wanted to talk to the nurse I told the pt and the that the nurse anita RN was busy with another Pt. got argumentative and started to raise her voice, I told her I was unable to give information on medications as I am only the GENERAL SUPERVISOR and not his nurse. I told the I will go speak to his nurse and that I had to step away from the phone and handed the phone back to the Pt.
[2022-02-07] MEDS: TRAZODONE 100 MG TABLET 400 MG PO (21:39)
[2022-02-08] VITALS: BP 96/53; PULSE 80; RESP 19; TEMP 36.7; O2SAT 94
[2022-02-08] MEDS: OXYCODONE IR 5 MG TABLET 10 MG PO ×4 (00:34→11:11)
[2022-02-08] MEDS: MELATONIN 3 MG TABLET 9 MG PO (00:35)
[2022-02-08] MEDS: ACETAMINOPHEN 325 MG TABLET 650 MG PO ×2 (03:42→11:11)
[2022-02-08 04:00] VITALS: BP 132/69; PULSE 66; RESP 18; TEMP 36.8; O2SAT 97
--- NOTE | 2022-02-08 06:11 | PC.NURSE ---
Shift Note: Patient was oriented to self, complaint of low back pain, due pain meds given. No signs of distress. Vital signs are stable and within acceptable limits. CMS are intact, pulses are palpable. Post op dressing at lower back appears clean, dry and intact. Patient was able to get up with 1 person assist and walking aid to use the toilet, urinated multiple times.
[2022-02-08] MEDS: ALBUTEROL/IPRATROPIUM 3 ML AMPUL INH ×2 (07:24→11:13)
[2022-02-08 07:25] VITALS: O2SAT 93
[2022-02-08] MEDS: MULTIVITAMIN 1 TABLET 1 TAB PO ×2 (07:37→08:33)
[2022-02-08 08:00] VITALS: BP 130/60; PULSE 68; RESP 17; TEMP 36.9; O2SAT 94
[2022-02-08] MEDS: cloNIDine 0.1 MG TABLET 0.2 MG PO (08:31)
[2022-02-08] MEDS: THIAMINE 100 MG TABLET PO (08:31)
[2022-02-08] MEDS: MONTELUKAST 10 MG TABLET PO (08:31)
[2022-02-08] MEDS: DOCUSATE 100 MG CAPSULE PO (08:31)
[2022-02-08] MEDS: LORATADINE 10 MG TABLET PO (08:32)
[2022-02-08] MEDS: lisinopriL 10 MG TABLET PO (08:32)
[2022-02-08] MEDS: FUROSEMIDE 40 MG TABLET PO (08:32)
[2022-02-08] MEDS: FOLIC ACID 1 MG TABLET PO (08:32)
[2022-02-08] MEDS: FERROUS SULFATE 325 MG TABLET PO (08:32)
[2022-02-08] MEDS: METOPROLOL ER 50 MG TABLET 100 MG PO (08:33)
[2022-02-08] MEDS: SODIUM CHLORIDE 0.9% FLUSH 10 ML IV (08:33)
--- NOTE | 2022-02-08 10:38 | PM.DS.1 ---
History of Present Illness History of Present Illness Date Patient Seen: 02/08/22 Time Patient Seen: 10:39 Chief complaint: INPT Narrative: Operative Date/Time/Diagnoses Date of procedure: 02/04/22 Time of procedure: 10:00 Pre-op diagnosis: 1. L2-3, L3-4, L4-5, L5-S1 spinal stenosis with neurogenic claudication 2. History of L4-5, L5-S1 fusion with instrumentation Post-op diagnosis: same Procedure & Clinicians Procedure: 1. L2-3, L3-4 posterolateral and posterior interbody fusion 2. L2-3, L3-4 posterior interbody cage placement 3. L4-5, L5-S1 posterior segmental instrumentation removal 4. L4-5, L5-S1 revision laminectomy with exploration of fusion 5. L2-3, L3-4, L4-5, L5-S1 posterior segmental instrumentation with pedicle screw placement 6. L4-5 posterolatearl fusion 7. [place] of bone marrow from iliac crest through a separate incision 8. Utilization of microsurgical technique and operating microscope 9. Utilization of [employer] robotic navigation Same procedure as scheduled: Yes Indications: Patient has been having chronic back pain and worsening lumbar radiculopathy. Patient had previous L4-S1 lumbar fusion it has been doing well until the last 6 month. Patient failed multiple conservative management with worsening pain weakness and numbness in his lower extremity.? Patient has been having difficulty performing activity of daily living.? After discussing risks benefits of treatment options, patient elected proceed with surgery. Surgeon: Cinda Barbosa Belt Buckle Maker: Lin Wayne Click Yes if Unassisted: No Anesthesia Type: General Operative Notes Closure Type: primary Specimen(s): none sent Prosthetic devices, grafts, tissues, transplants, or devices: Globus CREO MIS screws, Rise cages Applied: catheter Estimated Blood Loss (mL): 250 Blood products transfused: none Discharge Providers Provider Date of admission: 02/04/22 07:21 Discharge Date: 02/08/22 Primary care physician: Romi Tavera MD Consults: 02/04/22 17:05 Consult to Occupational Therapy Evaluate & Treat Comment: Physician Instructions: Evaluate and treat Consult to Physical Therapy Evaluate & Treat Comment: Physician Instructions: Evaluate and Treat 02/04/22 17:08 Consult to Respiratory Therapy Evaluate & Treat Comment: Asthma (Possible COPD); s/p spine surgery Physician Instructions: Evaluate and treat 02/06/22 08:02 Consult to Hospitalist Service Routine Comment: Consulting Provider: Gino Santiago Reason for consultation: hypotension, alcohol withdrawal Has provider been notified: Yes Discharge provider: Lin Wayne PA-C Summary Hospital Course Discharge Diagnosis: s/p lumbar fusion adverse reaction to long-acting opioids Hospital Course: Mr Yo's hospital course was complicated by lethargy following surgery. This prevented him from progressing w/ PT for several days. The hospitalist service was consulted and ruled out infectious process or acute neurologic problem as the cause of his mental status changes. In addition to oral narcotics, he was started on a fentanyl patch after surgery, and this was discontinued on the evening of POD# 1. On POD# 4, I spoke to his spouse, Cristel, for the first time and she said pt is very sensitive to long-acting or time-release narcotics. He was much brighter on the morning of POD# 4 and Cristel feels his lethargy and confusion up until this point was likely due to fentanyl patch. He was sitting up in a chair, fully awake, answering questions appropriately and following commands. His has a walker, wheelchair, and 4 point cane available to him and they have a ramp going into their house. He complained of back pain and denied leg pain. Cristel says the only pain medication they want for discharge is oxycodone. Exam Vital Signs (past 8 hours): - 02/08/22 04:00 02/08/22 07:25 02/08/22 08:00 Temperature 98.3 F 98.5 F Pulse Rate 66 68 Respiratory Rate 18 17 Blood Pressure 132/69 130/60 Pulse Oximetry 97 93 94 Oxygen Delivery Method Room Air Oxygen Flow Rate 0 Oxygen Delivery Method Room Air Oxygen Flow Rate 0 Narrative Exam Narrative: 5/5 strength in hip flexors, quadriceps, hamstrings, DF, PF, EHL bilaterally. Sensation to light touch intact in BLE. Calves soft, compressible, nontender and without palpable cords or masses. Low back dressings placed intraoperatively are CDI. Objective Labs Result Diagrams: 02/07/22 07:06 02/07/22 07:06 [facility] Medical History Achalasia Anginal pain Asthma Atrial fibrillation Cervical spinal stenosis Chronic obstructive pulmonary disease (10/23/16) COPD (chronic obstructive pulmonary disease) Coronary artery disease History of aortic dissection (~08/2007) Hypertension Ischemic cardiomyopathy Narcotic dependence Neck pain, chronic Ventricular bigeminy Surgical History H/O arthroscopic knee surgery (11/15/17) History of arthroplasty of left knee (05/25/19) History of arthroplasty of right knee History of bilateral total hip arthroplasty History of cardiac cath (~03/2014) History of esophageal surgery History of incision and drainage (~2016) History of prior ablation treatment (~03/2017) History of surgery Hx of cholecystectomy Hx of hernia repair Hx of sinus surgery S/P CABG x 3 (~08/2007) S/P cervical spinal fusion S/P lumbar fusion Family History Mother Stroke Father Hypertension Social History household members: spouse Smoking Status: Former smoker alcohol intake: current substance use type: does not use Discharge Assessment & Plan Assessment and Plan Assessment: s/p lumbar fusion adverse reaction to long-acting opioids Plan of Treatment: Discharge home w/ new rx for oxycodone only for pain control. Pt on Tylenol w/ codeine at home and can continue this as needed. F/u in office as scheduled. Discharge Plan Discharge Plan Patient Disposition: Home Discharge orders & Medications Prescriptions: New docusate sodium 100 mg Capsule 100 mg PO BID PRN (Reason: constipation) Qty: 60 2RF oxycodone 5 mg tablet 5 mg PO Q4H PRN (Reason: pain, moderate) Qty: 60 0RF Rx Instructions: 1-2 tabs q 4 hours PRN moderate to severe pain Continued multivitamin [Multiple Vitamins] 1 EACH tablet 1 tab PO DAILY Qty: 0 fluticasone propionate 16 GM spray,suspension 1 spray Intranasal DAILY PRN (Reason: Allergy Symptoms) Qty: 0 ferrous sulfate 325 mg (65 mg iron) tablet,delayed release (DR/EC) 325 mg PO DAILY Label Comments: take 1 tablet by mouth once daily glipizide [Glucotrol XL] 2.5 mg tablet extended release 24 hr 2.5 mg PO DAILY meclizine 25 mg tablet 25 mg PO QID PRN (Reason: vertigo) Qty: 30 0RF clonidine HCl 0.1 mg tablet 0.2 mg PO BID lisinopril 10 mg tablet 10 mg PO DAILY trazodone 100 mg tablet 400 tab PO BEDTIME 30 Days Qty: 120 0RF levalbuterol tartrate [Xopenex HFA] 45 mcg/actuation HFA aerosol inhaler 1 puff INHALATION Q4-6H PRN (Reason: shortness of breath or wheezing) Qty: 15 0RF Zyrtec 10 mg Capsule 10 mg PO DAILY furosemide 40 mg tablet 40 mg PO DAILY Label Comments: take 1 tablet by mouth once daily metoprolol succinate 100 mg Tablet Extended Release 24 Hr 100 mg PO DAILY acetaminophen-codeine 300-30 mg tablet 2 tab PO Q4H PRN (Reason: Pain (Scale Score 4-6)) montelukast 10 mg Tablet 10 mg PO DAILY Discontinued acetaminophen [Athenol] 325 mg tablet 650 mg PO Q6H PRN (Reason: pain) Qty: 60 0RF Follow up/Referrals: Romi Tavera MD [Primary Care Provider] - Cinda Barbosa MD [Physician] - As previously scheduled (Follow up w/ Dr Barbosa on 02/17/2022 @ 1:00 pm at [facility] in [place].) Diet/Activity/Treatments Diet: Diet as Tolerated Activity: Walk frequently. No deep bending (more than 90 degrees) or twisting at the waist. No lifting > 10 pounds. Cold/Heat Therapy: Heating pad to low back as needed for pain. Skin/Wound/Dressing Care Report to your healthcare provider any signs of infection, such as:: chills, fever, night sweats, unusual drainage and unusual redness Dressing: May shower. Keep clean, dry gauze over incisions. No bathing or otherwise soaking incisions. Do not apply any creams, lotions, or ointments to incisions. Visit Report/Discharge Packet Instructions: DI for Prescription Opioid Use, DI for Transforaminal Lumbar Interbody Fusion Stand Alone Forms: Surgery Discharge Discharge Data Primary Care Provider: Romi Tavera
--- NOTE | 2022-02-08 10:53 | P.PN_ITS ---
Subjective Subjective Date Patient Seen: 02/08/22 Time Patient Seen: 09:00 Interval history: We have seen the patient to consult to Orthopedic surgery, patient is pod D 4. Status post lumbar laminectomy. Patient has had lethargy and not appearing to improve and the hospital service was requested to consult on him. Patient is sitting up in his chair, lethargic. States pain yesterday was 10/10 and still is. Nursing has stated that he is impulsive and they have to watch him closely to make sure he does not move inappropriately. Review of the physical therapy notes indicates that sometimes he is too lethargic to participate in PT or is confused about the directions. I also note in his record that he has a history of alcohol use. He has been placed on CIWA protocol. Exam Vital Signs (past 8 hours): - 02/08/22 04:00 02/08/22 07:25 02/08/22 08:00 Temperature 98.3 F 98.5 F Pulse Rate 66 68 Respiratory Rate 18 17 Blood Pressure 132/69 130/60 Pulse Oximetry 97 93 94 Oxygen Delivery Method Room Air Oxygen Flow Rate 0 Oxygen Delivery Method Room Air Oxygen Flow Rate 0 Narrative Exam Narrative: Gen: Alert, lethargic, chronically ill appearing 76 y.o. male, sitting up in a chair HEENT: normocephalic, atraumatic, conjunctiva clear, sclera non-icteric, oral mucosa pink and moist Neck: supple, full ROM, no JVD, trachea is midline Resp: Lungs sounds are diminished, non-labored breathing CV: RRR, no murmur or rubs Abd: soft, non-tender, normoactive BTs Skin: no lesions or rashes, dry and intact Neuro: very weak and lethargic. Speech is soft but clear Extremities: moves all 4 extremities, is ambulatory assistance, negative Claudia?s sign Psyche: normal mood and affect. Objective Labs Result Diagrams: 02/07/22 07:06 02/07/22 07:06 [facility] Medical History Achalasia Anginal pain Asthma Atrial fibrillation Cervical spinal stenosis Chronic obstructive pulmonary disease (10/23/16) COPD (chronic obstructive pulmonary disease) Coronary artery disease History of aortic dissection (~08/2007) Hypertension Ischemic cardiomyopathy Narcotic dependence Neck pain, chronic Ventricular bigeminy Surgical History H/O arthroscopic knee surgery (11/15/17) History of arthroplasty of left knee (05/25/19) History of arthroplasty of right knee History of bilateral total hip arthroplasty History of cardiac cath (~03/2014) History of esophageal surgery History of incision and drainage (~2016) History of prior ablation treatment (~03/2017) History of surgery Hx of cholecystectomy Hx of hernia repair Hx of sinus surgery S/P CABG x 3 (~08/2007) S/P cervical spinal fusion S/P lumbar fusion Family History Mother Stroke Father Hypertension Social History household members: spouse Smoking Status: Former smoker alcohol intake: current substance use type: does not use Assessment & Plan Assessment & Plan narrative: Karthikeyan Yo is a 76 year old male postoperative day 4 lumbar laminectomy. 1. Acute encephalopathy the origin unknown * Question polypharmacy, patient was stated to be taking trazodone 400 mg at bedtime, have discussed with Pharmacy and will drop down to 100 mg at bedtime. They will be contacting the patient's pharmacies to confirm all home medications * Alcohol use, CIWA protocol in place, ammonia level has been ordered, consider Librium taper. * etiology not clear at the moment, he is mostly lethargic, think less likely etoh withdrawal * suspect related to delirium in setting of hospital and recent surgery * ABG ordered and CO2 was not consistent with hypercarbia * chest xray and ua were ordered for admitting service which were negative * repeat ua, was also negative * labs look reassuring with normal white count and no concerning findings on bmp * CT head ordered and negative * CT abdomen showed gastroenteritis vs ileus, no significant diarrhea, consider further workup if clinical status changes 2. COPD * mild acute exacerbation * added azithromycin, changed to orals today. * ordered nebs and steroids as well We will continue to follow along with you. Dispo: recommend acute rehab, have discussed in today's case management rounds. CODE: Full Proxy: Cristel Mendiola I have utilized all available resources to reconcile the patient's home medications. COVID-19 COVID-19 status: Negative Result date/Date tested (Pos, Neg/Pending): 03/04/22 Scores Wells' Criteria for PE Clinical signs and symptoms of DVT: No PE is #1 Dx or equally likely: No Heart rate > 100: No Immobilization at least 3 days or surg in previous 4 weeks: Yes History of PE or DVT: No Hemoptysis: No Malignancy w/Treatment within 6 months or palliative: Yes Wells' PE Score total: 2.5 Quality VTE Deep Vein Thrombosis/Pulmonary Embolism Present on Admission: No MIPS - Admit I confirm the patient?s Advance Care Plan is present, Code status is documented, Surrogate decision maker is in patient?s record [If Yes, STOP here]: Yes MIPS - DC The patient has current or prior documentation of left ventricular ejection fraction (LVEF) less than 40%, or moderate or severely depressed left ventric ular systolic function.: No
[2022-02-08 11:13] VITALS: PULSE 86; RESP 18; O2SAT 94
[2022-02-08] MEDS: AZITHROMYCIN 250 MG TABLET PO (11:41)
[2022-02-08 12:00] VITALS: BP 138/68; PULSE 72; RESP 18; TEMP 36.6; O2SAT 95
--- NOTE | 2022-02-08 12:00 | CM.DPC ---
DCP Cont: Patient is discharging home today. He will be going home with spouse, Cristel. Patient does have a history of alcohol abuse at his baseline, and was mentioned by nursing staff that spouse came in yesterday noting that she had been drinking. Spouse had left a message yesterday stating that she would be coming in today for caregiver training, and wanted to make sure that he had his Lorazepam and pain medications on board. Home Health has been ordered for patient. Checked in with agencies, and [facility] is the only one that takes [employer]. Neymar does not go to [facility], and Michell at [facility] indicated, she does not think that they take [employer]. Spoke to Cristina at [facility], and confirmed that they do take [employer], but they will need to get the authorization. They may not be able to see patient until later this month. Will fax [facility] face to face, face sheet, DC Summary, and P.T. notes and ask for nursing, P.T, O.T, and will add LACING STRING CUTTER. Did call [employer] today and left a message due to concerns of alcohol in the home between patient and spouse. P: Patient is discharging home today with [facility]. Betty Soto RN/Offal Worker
--- NOTE | 2022-02-08 12:42 | PT.IPTN ---
Current Diagnoses Encephalopathy, unspecified (02/04/22) Essential (primary) hypertension (02/04/22) Spinal stenosis, lumbar region with neurogenic claudication (02/04/22) Arthrodesis status (02/04/22) Surgery Performed Operation Date: 02/04/22 09:15 Actual Procedures p L2-3, L3-4 TLIF, L2-S1 PSF w. posterior instrumentation, L1-2 laminectomy - robot - Cinda Barbosa MD Physical Therapy Treatment Note M2 PT-IP Current Condition Start: 02/05/22 12:37 Freq: NEEDED Status: Discharge Protocol: Document 02/05/22 09:31 AB (Rec: 02/05/22 12:55 AB [id number]) Physical Therapy Current Condition Current Condition Evaluation Date 02/05/22 Treatment Diagnosis L2-S1 TLIF; difficulty in walking Onset Date 02/04/22 M3 PT-IP Subjective Start: 02/05/22 12:37 Freq: NEEDED Status: Discharge Protocol: Document 02/08/22 12:42 AW (Rec: 02/08/22 13:13 AW [id number]) Subjective Physical Therapy Visit Type Type Treatment Note Visit Start Time 12:27 Visit Stop Time 12:42 Total Visit Minutes 15 Notes Pt's spouse, Cristel, was present for caregiver training . Number of GEODESIST Visits 0 Physical Therapy Visit Comments Patient Comments I'm ready to go home. I can't do anything here because I hurt so much. Therapy Pain Assessment Pain When Pain Assessed At Rest Pain Present Pain Present Pain Reported Location Back Intensity 8 M4 PT-IP Mobility and Gait Start: 02/05/22 12:37 Freq: NEEDED Status: Discharge Protocol: Document 02/08/22 12:42 AW (Rec: 02/08/22 13:13 AW [id number]) PT-Transfer Assessment Sit to and From Stand Sit to and from Stand Contact Guard Assistance, Minimal Assistance,1 Person Assistance,Use of Upper Extremities Equipment Transfer Assistive Device Gait Belt,Front Wheeled Walker Transfers Transfer Destination Chair,Bedside Commode Transfer Technique ambulated w/ FWW Transfer Ability Level of Assist Contact Guard Assistance, Minimal Assistance,1 Person Assistance,Use of Upper Extremities Comments Mobility Comments Pt was dressed and sitting up in the chair as PT arrived. He was restless and hyperfocused on going home. PT educated spouse on back precautions and use of the gait belt. Pt impulsively stood from the chair with no AD at hand and needed to hold on to PT for support once standing. With FWW, pt walked 8 feet to the BSC and sat down with poorly controlled descent and without fully turning away from the seat which resulted in twisting of the trunk. PT educated pt and his spouse on functional implications of spinal precuations including need to square up to task and hinge at the hips for sitting and standing. Pt stood again and used FWW to return to the chair, refusing further mobility. Pt was left in the chair with spouse in room. Gait Assessment Gait Gait Assistance Required: Contact Guard Assist,Minimum Assistance,1 Person Assist Distance (Feet) 8 Able to Maintain Weight Bearing Status Yes During Gait Assistive Devices Assistive Device Gait Belt,Front Wheeled Walker Orthotic/Prosthetic Devices or Brace: No Gait Deviations General Gait Pattern Antalgic,Decreased Stride Length,Decreased Feet Clearance Factors Limiting Gait Function Factors Limiting Gait Function Decreased Activity Tolerance, Decreased Sensation,Decreased Strength,Difficulty Following Directions,Limited Range of Motion,Pain,Poor Balance,Poor Safety Awareness Comments Gait Comments Pt walked 8 feet chair <> BSC and then refused further ambulation. Stair Climbing Assessment Comments Stair Climbing Comments Pt has ramped entry and wheelchair at home. PT-Balance Assessment Sitting Balance and Reactions Static Sitting Balance Ability Good Dynamic Sitting Balance Ability Good Standing Balance and Reactions Static Standing Balance Ability Fair Dynamic Standing Balance Ability Fair Device Used FWW M5 PT-IP Objective Assessments Start: 02/05/22 12:37 Freq: NEEDED Status: Discharge Protocol: Document 02/05/22 09:31 AB (Rec: 02/05/22 12:55 AB [id number]) Orientation Orientation/Cognition Level of Alertness Alert Orientation Name,Place,Situation Safety Awareness Decreased Safety Awareness Gross Range of Motion Lower Extremity ROM Assessment Within Functional Limits Strength Lower Extremity Strength Hip 4-/5 Knee 4/5 Sensation Assessment Sensation Sensation Description Numbness Comments Sensation Comments stated numbness on B lateral hips Muscle Tone Muscle Tone WNL Yes M6 PT-IP Treatment Start: 02/05/22 12:37 Freq: NEEDED Status: Discharge Protocol: Document 02/08/22 12:42 AW (Rec: 02/08/22 13:13 AW [id number]) Physical Therapy Treatment Education Education Provided Precautions,Safety Other Treatments Other Treatment Performed Educated pt and his spouse extensively on spinal precautions and their functional implications. M7 PT-IP Assessment and Plan Start: 02/05/22 12:37 Freq: NEEDED Status: Discharge Protocol: Document 02/08/22 12:42 AW (Rec: 02/08/22 13:13 AW [id number]) PT Summary Assessment and Plan Potential Rehabilitation Potential Fair Summary Impairments Pain,ROM,Strength,Balance, Coordination,Sensation,Tone, Cognition,Bed Mobility, Transfers,Gait,Activity Tolerance Progress Towards Goals Slow Progress due to Pain,Slow Progress - Other Assessment Summary Pt required CGA to min assist for sit<>stand and short distance gait with FWW today. Attempted to conduct caregiver training with spouse, but pt refused further mobility. Spouse does have good understanding of post-op precautions. Pt's spouse notes they have ramp, wheelchair, walker, and quad cane at home. Pt's daughter and son-in-law will also be present to help get pt into the house when pt goes home. He may benefit from home health to progress his strength and mobility. Goals Bed Mobility Goal Independent Transfer Goal Independent,Front Wheeled Walker Gait Goal Independent,Front Wheel Walker Gait Distance 200 Days to Meet Goals 5 Frequency of Treatment Frequency Of Treatment Twice a Day Treatment Plan Physical Therapy Treatment Plan Bed Mobility Training,Transfer Training,Gait Training, Therapeutic Exercise,Balance Retraining,Post Op Education, Discharge Planning,Hot or Cold Pack,Neuromuscular Re-ed, Coordination Retraining,Manual Therapy Precautions Lumbar Precautions Log Roll,No Twisting,Limit Bending,Lifting Restriction of 10 lbs,Gait Belt above Incisional Area Recommendations To Nursing Amount of Assist Needed 1 Person Assist Discharge Recommendations PT Discharge Recommendations Home with 01/03 Assist Available,Home Health,SNF Rehab,Home vs SNF Transportation Needs at Discharge Private Vehicle,Wheelchair/ Cabulance
--- NOTE | 2022-02-08 13:02 | PC.NURSE ---
AM shift Pt is a/o x2, forgetful and impulsive at times. BA active and setting off multiple times this AM, causing increased agitation. Why do you need to track me like this Update to , who is planning to dc home later today. PT is planning rn managed care training at lunch time. Pain control remains an issue, oxycodone 10 mg q3, Pt is requesting more than once an hour, while eyes are closed, and rating pain 10/10. arrived for caregiver training with minimal participation, requesting dc papers home. Pt agitated and ready to dc. Dressing changed to lateral back CDI at DC. Reviewed dc medications including pain regimine. Wheeled to private vehicle.
--- NOTE | 2022-02-10 11:14 | CM.DPNOTE ---
Batsheva Das - Allie from [employer] called following up on Zoë's phone call. Her number [phone]. I faxed her Zoë's note right before dc, to [phone]. Mayra Oakley CM Assist.
== END 2022-02-08 13:10 | disposition home health service (06) | DRG 453 ==
LOC: AC 07:27 → ICU 11:30 → AC 02-05 15:35
PROVIDERS: Internal Medicine; Nurse Practitioner Family; Admitting Provider Orthopaedic Surgery Orthopaedic Surgery of the Spine; PCP Internal Medicine; Referring Provider Orthopaedic Surgery Orthopaedic Surgery of the Spine; Visit Provider Orthopaedic Surgery Orthopaedic Surgery of the Spine
PROC: 0SG10AJ Fusion of 2 or more Lumbar Vertebral Joints with Interbody Fusion Device, Posterior Approach, Anterior Column, Open Approach (ICD-10-PCS; principal; 2022-02-04 09:15)
DX: M48.062 Spinal stenosis, lumbar region with neurogenic claudication (principal); G92.8 Other toxic encephalopathy; M96.0 Pseudarthrosis after fusion or arthrodesis; J44.1 Chronic obstructive pulmonary disease with (acute) exacerbation; M48.07 Spinal stenosis, lumbosacral region; M96.1 Postlaminectomy syndrome, not elsewhere classified; I10 Essential (primary) hypertension; I25.10 Atherosclerotic heart disease of native coronary artery without angina pectoris; Z95.1 Presence of aortocoronary bypass graft; T40.2X5A Adverse effect of other opioids, initial encounter; Z87.891 Personal history of nicotine dependence; Z20.822 Contact with and (suspected) exposure to COVID-19; Z98.1 Arthrodesis status
CPT/HCPCS: 36415; 36600; 70450; 71045; 72100; 74177; 76000; 80053; 81001; 82805; 82962; 83605; 85014; 85018; 85025; 87040; 87045; 87797; 87899; 94640; 94760; 94762; 97161; 97165; 97530; 97535; C1713; C9290; J0131; J0171; J0330; J0690; J1100; J2250; J2405; J2704; J3010; J3410; J7613; Q9967

== ENCOUNTER 2022-02-09 08:20 | Emergency (ER) | payer OTHER, SELFPAY ==
[2022-02-04 17:45] VITALS: BMI 28.3
[2022-02-09 08:39] VITALS: BP 149/71; PULSE 117; RESP 14; TEMP 37.2; O2SAT 97; BMI 28.3
--- NOTE | 2022-02-09 08:46 | ED_ITS ---
HPI - Weakness General Chief complaint: Weakness Stated complaint: NEEDS MORE CARE DISCHARGED FROM [facility] 02/08 Time Seen by Provider: 02/09/22 08:41 Source: patient Mode of arrival: Ambulatory History of Present Illness HPI Narrative: Patient is a 76-year-old male with history of COPD, chronic AFib, not anticoagulated, ischemic cardiomyopathy, history of mesenteric ischemic, hypertension with recent lumbar fusion, who presents today with confusion. He was discharged from the hospital yesterday after having lumbar fusion he during his stay he had some encephalitis thought to be due from polypharmacy, although he does have a history of alcohol use states that he really that when drinking very much. She states last night he was very confused seem to be in lot of pain he got 2 tablets of oxycodone and Tylenol at least 4 doses throughout the night 1 including 2 hours apart between 1:00 a.m. and 3:00 a.m.. He is having some mild pain now but seems to be definitely more appropriate he is afebrile he is noted to be tachycardic, he has no shortness breath, he has no chest pain he has no abdominal pain nausea or vomiting. Related Data Home Medications Medication Instructions Recorded Confirmed multivitamin (Multiple Vitamins 1 tab PO DAILY ##0 12/21/16 02/04/22 tablet) fluticasone propionate 50 1 spray intranasal DAILY PRN 11/03/17 02/04/22 mcg/actuation nasal Allergy Symptoms ##0 spray,suspension cetirizine 10 mg capsule (Zyrtec) 10 mg PO DAILY 05/23/19 02/04/22 ferrous sulfate 325 mg (65 mg 325 mg PO DAILY 10/20/19 02/04/22 iron) tablet,delayed release glipizide 2.5 mg tablet, extended 2.5 mg PO DAILY 10/09/21 02/04/22 release 24 hr (Glucotrol XL) clonidine HCl 0.1 mg tablet 0.2 mg PO BID 12/09/21 02/04/22 lisinopril 10 mg tablet 10 mg PO DAILY 12/09/21 02/04/22 acetaminophen 300 mg-codeine 30 mg 2 tab PO Q4H PRN Pain (Scale Score 02/04/22 02/04/22 tablet 4-6) furosemide 40 mg tablet 40 mg PO DAILY 02/04/22 02/04/22 metoprolol succinate 100 mg 100 mg PO DAILY 02/04/22 02/04/22 tablet,extended release 24 hr montelukast 10 mg tablet 10 mg PO DAILY 02/04/22 02/04/22 Previous Rx's Medication Instructions Recorded levalbuterol tartrate 45 1 puff inhalation Q4-6H PRN 06/23/18 mcg/actuation aerosol inhaler shortness of breath or wheezing (Xopenex HFA) #15 grams meclizine 25 mg tablet 25 mg PO QID PRN vertigo #30 tabs 10/10/21 trazodone 100 mg tablet 400 tab PO BEDTIME 30 days #120 12/11/21 tabs docusate sodium 100 mg capsule 100 mg PO BID PRN constipation #60 02/08/22 caps oxycodone 5 mg tablet 5 mg PO Q4H PRN pain, moderate #60 02/08/22 tabs Allergies Allergy/AdvReac Type Severity Reaction Status Date / Time diazepam [From Valium] Allergy Severe Confusion Verified 02/09/22 08:38 hydromorphone [From Dilaudid] Allergy Severe Hallucinating, Verified 02/09/22 08:38 He gets out of his mind morphine Allergy Severe Hallucinating, Verified 02/09/22 08:38 He gets out of his mind celecoxib [CELECOXIB] Allergy Mild SWELLING Verified 02/09/22 08:38 latex [LATEX] Allergy Mild RASH Verified 02/09/22 08:38 W/EXTENDED EXPOSURE Sulfa (Sulfonamide Allergy Mild RASH Verified 02/09/22 08:38 Antibiotics) [SULFA (SULFONAMIDE ANTIBIOTICS)] fentanyl AdvReac Severe Confusion Verified 02/09/22 08:39 varenicline [VARENICLINE] AdvReac Severe Paranoia Verified 02/09/22 08:38 buprenorphine [BUPRENORPHINE] AdvReac Mild NAUSEA, Verified 02/09/22 08:38 DIZZINESS hyoscyamine [HYOSCYAMINE] AdvReac Mild LEG Verified 02/09/22 08:38 JERKING, ANXIETY, NAUSEA W/I MINUTES Cfhgfmt-KPO-KpD Reductase AdvReac Mild WEAK Verified 02/09/22 08:38 Inhibitor MUSCLES [DPAVDIH-DMT-DYA REDUCTASE INHIBITOR] Review of Systems Review of Systems Narrative: GENERAL: Denies chills, fatigue, malaise, fever, sweats, travel HEENT: Denies sinus pain, ear pain, sore throat, difficulty swallowing, neck pa in RESPIRATORY: Denies dyspnea, cough, wheezing, hemoptysis, sputum. CARDIOVASCULAR: Denies chest pain, palpitations, orthopnea, edema GASTROINTESTINAL: Denies nausea, vomiting, abdominal pain, diarrhea, constipation, melena. : Denies dysuria, frequency, incontinence, hematuria, urinary retention, flank pain. MUSCULOSKELETAL: See HPI SKIN: No rash, no erythema, no pruritus NEUROLOGIC: Denies weakness, dizziness, headache, numbness, change in speech, confusion PSYCHIATRIC: No concerning psychosocial issues. 12 point review of systems is negative except for those stated above and HPI Patient History Medical History Achalasia Anginal pain Asthma Atrial fibrillation Cervical spinal stenosis Chronic obstructive pulmonary disease (10/23/16) COPD (chronic obstructive pulmonary disease) Coronary artery disease History of aortic dissection (~08/2007) Hypertension Ischemic cardiomyopathy Narcotic dependence Neck pain, chronic Ventricular bigeminy Surgical History H/O arthroscopic knee surgery (11/15/17) History of arthroplasty of left knee (05/25/19) History of arthroplasty of right knee History of bilateral total hip arthroplasty History of cardiac cath (~03/2014) History of esophageal surgery History of incision and drainage (~2016) History of prior ablation treatment (~03/2017) History of surgery Hx of cholecystectomy Hx of hernia repair Hx of sinus surgery S/P CABG x 3 (~08/2007) S/P cervical spinal fusion S/P lumbar fusion Family History Mother Stroke Father Hypertension Social History household members: spouse Smoking Status: Former smoker alcohol intake: current substance use type: does not use Smoking Status: Former smoker alcohol intake frequency: 0-2 drinks per day Substance Use Type: does not use Exam Initial Vital Signs Initial Vital Signs: Vital Signs Temperature 98.9 F 02/09/22 08:39 Pulse Rate 117 H 02/09/22 08:39 Respiratory Rate 14 02/09/22 08:39 Blood Pressure 149/71 H 02/09/22 08:39 Pulse Oximetry 97 02/09/22 08:39 Oxygen Delivery Method 02/09/22 08:39 GENERAL: Alert slightly confused 76-year-old male and in no acute distress. HEENT: Head atraumatic,EOMI, pupils reactive, face symmetric, moist mucous membranes CARDIOVASCULAR: Regular rate and rhythm without murmurs, rubs or gallops. RESPIRATORY: Breath sounds equal bilaterally, no wheezes rales or rhonchi. ABDOMEN: Soft, nontender. Normoactive bowel sounds all 4 quadrants. No guardi ng or rebound. EXTREMITIES: Normal range of motion, no clubbing or edema. Neurovascularly intact NEUROLOGICAL: Alert and oriented x2.Normal gait and speech. Cranial nerves II through XII grossly intact. Statistical Programmer strength equal bilaterally able lift both legs up without any significant pain SKIN: Warm, dry, no laceration, no petechiae, no rashes or lesions. Course Orders Ordered: ED Orders 02/09/22 09:30 Blood Culture Stat 02/09/22 10:36 Consult to [facility] - [place] Stat Consult to Physical Therapy Evaluate & Treat Discontinued Medications Acetaminophen (Acetaminophen 325 Mg Tablet) 650 mg PO NOW ONE Stop: 02/09/22 10:50 Last Admin: 02/09/22 11:17 Dose: Not Given Documented By: AT Oxycodone HCl (Oxycodone Ir 5 Mg Tablet) 10 mg PO NOW ONE Stop: 02/09/22 11:05 Last Admin: 02/09/22 11:12 Dose: 10 mg Documented By: AT Vital Signs Vital signs: Vital Signs - 8 hr 02/09/22 11:10 Pulse Rate 12 L Respiratory Rate 19 Blood Pressure 181/82 H Pulse Oximetry 96 Oxygen Delivery Method Room Air MDM - Weakness Lab Data Result diagrams: 02/09/22 08:53 02/09/22 08:53 Labs: Lab Results 02/09/22 02/09/22 02/09/22 Range/Units 08:53 08:53 08:53 WBC 5.9 (4.5-11.0) X10^3/uL RBC 3.52 L (4.5-5.9) X10^6/uL Hgb 11.3 L (13.5-17.5) g/dL Hct 32.7 L (41-53) % MCV 92.8 (80-100) fL MCH 32.0 (26-34) PG MCHC 34.5 (30-36) % RDW 12.9 (11.6-14.8) % Plt Count 319 (150-400) X10^3/uL Neut % (Auto) 71.1 (50-75) % Lymph % (Auto) 11.7 L (25-40) % [place] % (Auto) 14.4 H (3-14) % Eos % (Auto) 2.1 (2-4) % Baso % (Auto) 0.7 (0-2) % Neut # (Auto) 4200 (5871-5907) /uL Lymph # (Auto) 700 L (9236-4672) /uL [place] # (Auto) 800 (0-900) /uL Eos # (Auto) 100 (0-450) /uL Baso # (Auto) 0 (0-100) /uL Sodium 140 (137-145) mmol/L Potassium 3.4 (3.4-5.1) mmol/L Chloride 102 (98-107) mmol/L Carbon Dioxide 31 (22-32) mmol/L BUN 15 (9-20) mg/dL Creatinine 0.80 (0.66-1.25) mg/dL Estimated GFR > 60 (>60) mL/min BUN/Creatinine Ratio 18.8 (6-22) Glucose 182 H (80-110) mg/dL Lactate 1.6 (0.7-2.1) mmol/L Calcium 8.7 (8.4-10.2) mg/dL Total Bilirubin 1.0 (0.2-1.3) mg/dL AST 76 H (17-59) IU/L ALT 48 (<50) IU/L Alkaline Phosphatase 63 (38-126) U/L Total Creatine Kinase 849 H (55-170) U/L CK-MB (CK-2) 2.14 (<2.37) ng/mL CK-MB (CK-2) Rel Index 0.3 L (1.5-5.0) % Troponin I < 0.012 (0.01-0.034) ng/mL Total Protein 7.1 (6.3-8.2) g/dL Albumin 3.9 (3.5-5.0) g/dL Globulin 3.2 (1.7-4.1) g/dL Albumin/Globulin Ratio 1.2 (1.0-2.8) Procalcitonin (<0.5) ng/mL SARS-CoV-2 (PCR) (Negative) 02/09/22 02/09/22 Range/Units 08:53 08:53 WBC (4.5-11.0) X10^3/uL RBC (4.5-5.9) X10^6/uL Hgb (13.5-17.5) g/dL Hct (41-53) % MCV (80-100) fL MCH (26-34) PG MCHC (30-36) % RDW (11.6-14.8) % Plt Count (150-400) X10^3/uL Neut % (Auto) (50-75) % Lymph % (Auto) (25-40) % [place] % (Auto) (3-14) % Eos % (Auto) (2-4) % Baso % (Auto) (0-2) % Neut # (Auto) (3690-7800) /uL Lymph # (Auto) (0278-9823) /uL [place] # (Auto) (0-900) /uL Eos # (Auto) (0-450) /uL Baso # (Auto) (0-100) /uL Sodium (137-145) mmol/L Potassium (3.4-5.1) mmol/L Chloride (98-107) mmol/L Carbon Dioxide (22-32) mmol/L BUN (9-20) mg/dL Creatinine (0.66-1.25) mg/dL Estimated GFR (>60) mL/min BUN/Creatinine Ratio (6-22) Glucose (80-110) mg/dL Lactate (0.7-2.1) mmol/L Calcium (8.4-10.2) mg/dL Total Bilirubin (0.2-1.3) mg/dL AST (17-59) IU/L ALT (<50) IU/L Alkaline Phosphatase (38-126) U/L Total Creatine Kinase (55-170) U/L CK-MB (CK-2) (<2.37) ng/mL CK-MB (CK-2) Rel Index (1.5-5.0) % Troponin I (0.01-0.034) ng/mL Total Protein (6.3-8.2) g/dL Albumin (3.5-5.0) g/dL Globulin (1.7-4.1) g/dL Albumin/Globulin Ratio (1.0-2.8) Procalcitonin 0.07 (<0.5) ng/mL SARS-CoV-2 (PCR) Negative (Negative) Imaging Data Chest x-ray: Radiologist Impression: XRay Report Signed Patient: Karthikeyan Yo MR#: [id number] : 1945 Acct:[id number] Age/Sex: 76 / M Date of Service: 02/09/22 Loc: ED Accession Number: [id number] ?? Procedure: XR chest 1V Ordering Provider: Lorena John D.O. PROCEDURE:? XR CHEST 1V ? INDICATIONS:? Confusion after surgery ? TECHNIQUE:? One view of the chest was acquired.? ? COMPARISON:? [facility], , XR CHEST 1V, 02/05/2022, 18:16. ? FINDINGS:? ? Surgical changes and devices:? Status post median sternotomy. ? Lungs and pleura:? Lungs are clear.? No pleural effusions or pneumothorax.? Platelike atelectatic changes in the left lower lung. ? Mediastinum:? Mediastinal contours appear normal.? Heart size is enlarged.? ? Bones and chest wall:? No suspicious bony lesions.? Overlying soft tissues appear unremarkable.? ? IMPRESSION:? No acute cardiopulmonary abnormality. ? ? Dictated by: Aric Dior M.D. on 02/09/2022 at 8:40 ? ? Approved by: Aric Dior M.D. on 02/09/2022 at 8:42 ? ECG Data Interpretation: Normal sinus rhythm rate 97 NH interval 172 QRS [address] changes no T- wave inversions MDM Narrative Medical decision making narrative: Patient seems to be needing more care at home. Although he is ambulatory in the ED. he has multiple opiate pain allergies he is given oxycodone and Tylenol in the emergency department. states that her biggest complaint is that he keeps popping her for pain medications. Social Work has been involved spoken to the hospitalist everyone is happy to take him back into the hospital and find appropriate placement for him. However both patient and are frayed that he may get COVID in a facility and would prefer to try and take him home again. It is reported that the was intoxicated during her visits in the hospital here and patient also has a history of alcoholism. At this time there is really no indication or need for admission except for placement and they do not want placement at this time. Discharge Plan Departure Patient Disposition: Home Clinical Impression: Post-op pain Instructions: DI for Postoperative Pain Activity Restrictions/Additional Instructions: *You have been diagnosed with postoperative pain *What to do: You were once again offered opportunity for rehab facility. It was is strongly encouraged that you stay to get placed in a rehab facility so that your pain can be well controlled and monitored. At this time you opted to go home. *Continue to take medications as directed Oxycodone 1 tablet every 6 hours *Follow up with your primary care provider in 2-3 days or call [phone] *Return to ER if you should have any new, worsening or concerning symptoms CONTROLLED SUBSTANCE DISCHARGE (Narcotoic/benzodiazepine/Flexeril/Phenergan) 1. You have been prescribed narcotic medications, it does have acetaminophen/Tylenol/paracetamol in it, DO NOT TAKE MORE THAN 4,00mg in 24 hours of Tylenol. TRAMADOL DOES NOT CONTAIN TYLENOL 2. Please understand that we cannot provide further refills of narcotics, benzodiazepines or controlled substances through the ED and her pain management will need to be through your provider. 3. While on these medications you cannot drive or operate heavy machinery. 4. You cannot sign legal documents or perform any duties such as this. 5. As long as you're taking opiate pain medications he should also be taking a stool softener such as Colace, Dulcolax, MiraLAX or prune juice, to help avoid constipation. Prescriptions: No Action multivitamin [Multiple Vitamins] 1 EACH tablet 1 tab PO DAILY Qty: 0 fluticasone propionate 16 GM spray,suspension 1 spray Intranasal DAILY PRN (Reason: Allergy Symptoms) Qty: 0 ferrous sulfate 325 mg (65 mg iron) tablet,delayed release (DR/EC) 325 mg PO DAILY Label Comments: take 1 tablet by mouth once daily glipizide [Glucotrol XL] 2.5 mg tablet extended release 24 hr 2.5 mg PO DAILY meclizine 25 mg tablet 25 mg PO QID PRN (Reason: vertigo) Qty: 30 0RF clonidine HCl 0.1 mg tablet 0.2 mg PO BID lisinopril 10 mg tablet 10 mg PO DAILY trazodone 100 mg tablet 400 tab PO BEDTIME 30 Days Qty: 120 0RF levalbuterol tartrate [Xopenex HFA] 45 mcg/actuation HFA aerosol inhaler 1 puff INHALATION Q4-6H PRN (Reason: shortness of breath or wheezing) Qty: 15 0RF Zyrtec 10 mg Capsule 10 mg PO DAILY furosemide 40 mg tablet 40 mg PO DAILY Label Comments: take 1 tablet by mouth once daily metoprolol succinate 100 mg Tablet Extended Release 24 Hr 100 mg PO DAILY acetaminophen-codeine 300-30 mg tablet 2 tab PO Q4H PRN (Reason: Pain (Scale Score 4-6)) montelukast 10 mg Tablet 10 mg PO DAILY docusate sodium 100 mg Capsule 100 mg PO BID PRN (Reason: constipation) Qty: 60 2RF oxycodone 5 mg tablet 5 mg PO Q4H PRN (Reason: pain, moderate) Qty: 60 0RF Rx Instructions: 1-2 tabs q 4 hours PRN moderate to severe pain Referrals: Romi Tavera MD [Primary Care Provider] - Visit Report Forms: Patient Portal/API
--- NOTE | 2022-02-09 08:54 | DI.RAD.S_ITS ---
PROCEDURE: XR CHEST 1V INDICATIONS: Confusion after surgery TECHNIQUE: One view of the chest was acquired. COMPARISON: [facility], CR, XR CHEST 1V, 02/05/2022, 18:16. FINDINGS: Surgical changes and devices: Status post median sternotomy. Lungs and pleura: Lungs are clear. No pleural effusions or pneumothorax. Platelike atelectatic changes in the left lower lung. Mediastinum: Mediastinal contours appear normal. Heart size is enlarged. Bones and chest wall: No suspicious bony lesions. Overlying soft tissues appear unremarkable. IMPRESSION: No acute cardiopulmonary abnormality. Dictated by: Aric Dior M.D. on 02/09/2022 at 8:40 Approved by: Aric Dior M.D. on 02/09/2022 at 8:42
[2022-02-09 09:08] LABS: Add Manual Diff / Slide Review NO; Basophils Absolute Auto 0 /uL (0-100); Basophils Percent Auto 0.7 % (0-2); Eosinophils Absolute Auto 100 /uL (0-450); Eosinophils Percent Auto 2.1 % (2-4); Hematocrit 32.7 % (41-53); Hemoglobin 11.3 g/dL (13.5-17.5); Lymphocytes Absolute Auto 700 /uL (1100-4500); Lymphocytes Percent Auto 11.7 % (25-40); Mean Corpuscular HGB Conc 34.5 % (30-36); Mean Corpuscular Volume 92.8 fL (80-100); Monocytes Absolute Auto 800 /uL (0-900); Monocytes Percent Auto 14.4 % (3-14); Neutrophils Absolute Auto 4200 /uL (1500-7000); Neutrophils Percent Auto 71.1 % (50-75); Platelet Count 319 X10^3/uL (150-400); Red Blood Cell Count 3.52 X10^6/uL (4.5-5.9); Red Cell Distribution Width 12.9 % (11.6-14.8); White Blood Cell Count 5.9 X10^3/uL (4.5-11.0)
[2022-02-09 09:18] LABS: COVID19 -Nasal RAPID Negative (Negative); Lactate (Lactic Acid) 1.6 mmol/L (0.7-2.1)
[2022-02-09 09:19] LABS: Alanine Aminotransferase 48 IU/L (<50); Albumin 3.9 g/dL (3.5-5.0); Albumin Globulin Ratio 1.2 (1.0-2.8); Alkaline Phosphatase 63 U/L (38-126); Aspartate Aminotransferase 76 IU/L (17-59); BUN Creatinine Ratio 18.8 (6-22); Blood Urea Nitrogen 15 mg/dL (9-20); Calcium 8.7 mg/dL (8.4-10.2); Carbon Dioxide 31 mmol/L (22-32); Chloride 102 mmol/L (98-107); Creatine Kinase 849 U/L (55-170); Estimated Glomerular Filt Rate > 60 mL/min (>60); Globulin 3.2 g/dL (1.7-4.1); Glucose 182 mg/dL (80-110); HEMOLYSIS < 15 (0-50); Potassium 3.4 mmol/L (3.4-5.1); Sodium 140 mmol/L (137-145); Total Protein 7.1 g/dL (6.3-8.2)
[2022-02-09 09:30] LABS: Troponin I < 0.012 ng/mL (0.01-0.034)
[2022-02-09 09:34] LABS: CKMB % Relative Index 0.3 % (1.5-5.0); Creatine Kinase MB 2.14 ng/mL (<2.37)
[2022-02-09 09:36] LABS: Procalcitonin 0.07 ng/mL (<0.5)
[2022-02-09 10:10] VITALS: BP 193/88; PULSE 100; RESP 18; O2SAT 96
[2022-02-09 11:10] VITALS: BP 181/82; PULSE 12; RESP 19; O2SAT 96
[2022-02-09] MEDS: OXYCODONE IR 5 MG TABLET 10 MG PO (11:12)
--- NOTE | 2022-02-09 11:58 | CM.DANOTE ---
DCP Assessment: Patient is a 76 yr old male who returned to the ED after being DC home yesterday family looking for SNF placement. Dayanna is confused and is believed due to poly pharmacy. CM called Anjali at [facility] looking for SNF placement and due to the patients confusion she will need to review him closer. Patient also has [facility] and [facility] is not contracted with them. However when looking at the patient Anjali stated the patient looks to have an active [place] [facility] plan. CM called Jose at [facility] who stated they have beds and do have a contract with [facility]. Jose at [facility] is looking into patient to see if [facility] or [facility] is primary and if they can accept his insurance but if they can accept the patients [facility] might have a bed tomorrow for him. CM Faxed over Clinical[facility] for jose to review.... Anjali is still reviewing and will follow up with department tomorrow after she meets with her team to see if they can accept this patient. 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 No Advance Directives on File No History Provided By Medical Record Has Patient been admitted in last 30 Yes days? Comment Patient was just DC yesterday 02/08/22 from the Acute care floor home after family and patient refused SNF and HH services. Prior Living Arrangements House Household Members spouse Type of transporation used prior to Relies on Others admit Independent with ADL's No: not currently had recient TLIF surgery Is patient alert and oriented? No: CUrrenlty confused in ED Needs Assistance With Bathing,Grooming,Toileting, Managing Medications Comment Currently will need SNF placement Caregiver for Another No Comment Pt states that he has DME in the home from the last time he had knee surgery, and then last year ankle surgery Patient/Family Preference [facility] Facility Comment Hx of ETOH w/d vs ing behavior vs reaction to Morphine/Dilaudid (?) It is suspected that pt does not accurately disclose the quantity of ETOH use at home Discharge Plan [facility] Facility Transportation Arrangement facility or spouce will transport patient Referrals Initiated Prison Additional Comment failed home now returned seeking SNF placement If patient plan is SNF: Has PASSR been No: need to find accepting completed? facility Medicare Choice List Provided Yes Has Agency SNF been contacted Yes Comment [facility] Review Status In Process Next Review Type Continued Stay Review
--- NOTE | 2022-02-09 12:25 | PC.NURSE ---
Spoke with and patient at length about staying here for rehab placement. Pt and do not want any visiting restrictions, wants to take patient home. Pt states he wants to go home. Dr John also spoke with pt and at length regarding staying in the hospital. Pt and started wheeling self out to the car. DC and instructions were done at car outside unable to update pts vitals. Pt refused. IV was removed. Explained the risks of too much pain medication and Dr suarez change in oxycodone dose to one every 6 hours due to increased instability and mental status changes with too much oxycodone.
== END 2022-02-09 12:25 | disposition home or self-care (01) ==
PROVIDERS: Emergency Provider Emergency Medicine; PCP Internal Medicine; Referring Provider Orthopaedic Surgery Orthopaedic Surgery of the Spine
DX: G89.18 Other acute postprocedural pain (principal); Z20.822 Contact with and (suspected) exposure to COVID-19; Z98.1 Arthrodesis status
CPT/HCPCS: 36415; 71045; 80053; 82550; 82553; 83605; 84145; 84484; 85025; 87040; 87635; 93005; 93010; 99284; C9803

== ENCOUNTER 2022-05-04 11:41 | Emergency (ER) | payer OTHER, SELFPAY ==
[2022-02-04 17:45] VITALS: BMI 28.3
[2022-05-04] VITALS (26 sets, daily range): BP systolic 151–216; BP diastolic 72–95; PULSE 62–79; RESP 14–25; TEMP 36.9; O2SAT 95–99; BMI 28.2
--- NOTE | 2022-05-04 12:01 | DI.RAD.S_ITS ---
PROCEDURE: XR CHEST 1V INDICATIONS: chest pain TECHNIQUE: One view of the chest was acquired. COMPARISON: [facility], CR, XR CHEST 1V, 02/09/2022, 9:19. FINDINGS: Surgical changes and devices: Patient is status post median sternotomy. Cervical fixation hardware is grossly intact. Lungs and pleura: Lungs are clear. No pleural effusions or pneumothorax. Mediastinum: Mediastinal contours appear normal. Heart size is normal. Bones and chest wall: No suspicious bony lesions. Overlying soft tissues appear unremarkable. IMPRESSION: No acute cardiopulmonary findings. Dictated by: Marie Herrmann M.D. on 05/04/2022 at 12:13 Approved by: Marie Herrmann M.D. on 05/04/2022 at 12:14
[2022-05-04 12:20] LABS: Add Manual Diff / Slide Review NO; Basophils Absolute Auto 100 /uL (0-100); Eosinophils Absolute Auto 200 /uL (0-450); Eosinophils Percent Auto 3.4 % (2-4); Hematocrit 38.4 % (41-53); Hemoglobin 13.3 g/dL (13.5-17.5); Lymphocytes Absolute Auto 1100 /uL (1100-4500); Lymphocytes Percent Auto 16.6 % (25-40); Mean Corpuscular HGB Conc 34.6 % (30-36); Mean Corpuscular Hemoglobin 30.2 PG (26-34); Mean Corpuscular Volume 87.3 fL (80-100); Monocytes Absolute Auto 600 /uL (0-900); Monocytes Percent Auto 8.8 % (3-14); Neutrophils Absolute Auto 4800 /uL (1500-7000); Neutrophils Percent Auto 70.2 % (50-75); Platelet Count 188 X10^3/uL (150-400); Red Cell Distribution Width 13.6 % (11.6-14.8); White Blood Cell Count 6.8 X10^3/uL (4.5-11.0)
[2022-05-04 12:41] LABS: Alanine Aminotransferase 26 IU/L (<50); Albumin 3.8 g/dL (3.5-5.0); Albumin Globulin Ratio 1.3 (1.0-2.8); Alkaline Phosphatase 95 U/L (38-126); Aspartate Aminotransferase 30 IU/L (17-59); BUN Creatinine Ratio 24.3 (6-22); Bilirubin Total 0.3 mg/dL (0.2-1.3); Blood Urea Nitrogen 17 mg/dL (9-20); Calcium 8.8 mg/dL (8.4-10.2); Carbon Dioxide 25 mmol/L (22-32); Chloride 102 mmol/L (98-107); Creatine Kinase 103 U/L (55-170); Estimated Glomerular Filt Rate > 60 mL/min (>60); Glucose 155 mg/dL (80-110); HEMOLYSIS 16 (0-50); Lipase 73 U/L (23-300); Magnesium 1.9 mg/dL (1.6-2.3); Sodium 137 mmol/L (137-145); Total Protein 6.8 g/dL (6.3-8.2)
--- NOTE | 2022-05-04 12:44 | ED_ITS ---
HPI - Chest Pain General Chief Complaint: Chest Pain Stated Complaint: Chest pains, Pain in arm Time Seen by Provider: 05/04/22 12:16 Source: patient Mode of arrival: Ambulatory Limitations: no limitations History of Present Illness HPI narrative: Patient is a 77-year-old male history of CABG aortic dissection, diabetes, presents today with sharp stabbing chest pain. He says it also off and on for a few months however last 3 days is becoming more constant. It starts in the left side of his chest to go straight through to his back. He denies nausea or vomiting. Sometimes has shortness of breath but frequently needs his albuterol inhaler and that helps. He is followed by cardiology up at [facility]. He previously had a stress test 3 years ago.He was seen and evaluated last week at [facility] for the same. He had a full workup and was discharged home. Related Data Home Medications Medication Instructions Recorded Confirmed multivitamin (Multiple Vitamins 1 tab PO DAILY ##0 12/21/16 02/04/22 tablet) fluticasone propionate 50 1 spray intranasal DAILY PRN 11/03/17 02/04/22 mcg/actuation nasal Allergy Symptoms ##0 spray,suspension cetirizine 10 mg capsule (Zyrtec) 10 mg PO DAILY 05/23/19 02/04/22 ferrous sulfate 325 mg (65 mg 325 mg PO DAILY 10/20/19 02/04/22 iron) tablet,delayed release glipizide 2.5 mg tablet, extended 2.5 mg PO DAILY 10/09/21 02/04/22 release 24 hr (Glucotrol XL) clonidine HCl 0.1 mg tablet 0.2 mg PO BID 12/09/21 02/04/22 lisinopril 10 mg tablet 10 mg PO DAILY 12/09/21 02/04/22 acetaminophen 300 mg-codeine 30 mg 2 tab PO Q4H PRN Pain (Scale Score 02/04/22 02/04/22 tablet 4-6) furosemide 40 mg tablet 40 mg PO DAILY 02/04/22 02/04/22 metoprolol succinate 100 mg 100 mg PO DAILY 02/04/22 02/04/22 tablet,extended release 24 hr montelukast 10 mg tablet 10 mg PO DAILY 02/04/22 02/04/22 Previous Rx's Medication Instructions Recorded levalbuterol tartrate 45 1 puff inhalation Q4-6H PRN 06/23/ mcg/actuation aerosol inhaler shortness of breath or wheezing (Xopenex HFA) #15 grams meclizine 25 mg tablet 25 mg PO QID PRN vertigo #30 tabs 10/10/21 trazodone 100 mg tablet 400 tab PO BEDTIME 30 days #120 12/11/21 tabs docusate sodium 100 mg capsule 100 mg PO BID PRN constipation #60 02/08/22 caps oxycodone 5 mg tablet 5 mg PO Q4H PRN pain, moderate #60 02/08/22 tabs Allergies Allergy/AdvReac Type Severity Reaction Status Date / Time diazepam [From Valium] Allergy Severe Confusion Verified 05/04/22 11:58 hydromorphone [From Dilaudid] Allergy Severe Hallucinating, Verified 05/04/22 11:58 He gets out of his mind morphine Allergy Severe Hallucinating, Verified 05/04/22 11:58 He gets out of his mind celecoxib [CELECOXIB] Allergy Mild SWELLING Verified 05/04/22 11:58 latex [LATEX] Allergy Mild RASH Verified 05/04/22 11:58 W/EXTENDED EXPOSURE Sulfa (Sulfonamide Allergy Mild RASH Verified 05/04/22 11:58 Antibiotics) [SULFA (SULFONAMIDE ANTIBIOTICS)] fentanyl AdvReac Severe Confusion Verified 05/04/22 11:58 varenicline [VARENICLINE] AdvReac Severe Paranoia Verified 05/04/22 11:58 buprenorphine [BUPRENORPHINE] AdvReac Mild NAUSEA, Verified 05/04/22 11:58 DIZZINESS hyoscyamine [HYOSCYAMINE] AdvReac Mild LEG Verified 05/04/22 11:58 JERKING, ANXIETY, NAUSEA W/I MINUTES [id number] Reductase AdvReac Mild WEAK Verified 05/04/22 11:58 Inhibitor MUSCLES [BUAQRIX-AFE-VDS REDUCTASE INHIBITOR] Review of Systems Review of Systems Narrative: GENERAL: Denies chills, fatigue, malaise, fever, sweats, travel HEENT: Denies sinus pain, ear pain, sore throat, difficulty swallowing, neck pain RESPIRATORY: Denies dyspnea, cough, wheezing, hemoptysis, sputum. CARDIOVASCULAR: See HPI GASTROINTESTINAL: Denies nausea, vomiting, abdominal pain, diarrhea, constipation, melena. : Denies dysuria, frequency, incontinence, hematuria, urinary retention, flank pain. MUSCULOSKELETAL: Denies weakness, joint pain, or bony pain SKIN: No rash, no erythema, no pruritus NEUROLOGIC: Denies weakness, dizziness, headache, numbness, change in speech, confusion PSYCHIATRIC: No concerning psychosocial issues. 12 point review of systems is negative except for those stated above and HPI Patient History Medical History Achalasia Anginal pain Asthma Atrial fibrillation Cervical spinal stenosis Chronic obstructive pulmonary disease (10/23/16) COPD (chronic obstructive pulmonary disease) Coronary artery disease History of aortic dissection (~08/2007) Hypertension Ischemic cardiomyopathy Narcotic dependence Neck pain, chronic Ventricular bigeminy Surgical History H/O arthroscopic knee surgery (11/15/17) History of arthroplasty of left knee (05/25/19) History of arthroplasty of right knee History of bilateral total hip arthroplasty History of cardiac cath (~03/2014) History of esophageal surgery History of incision and drainage (~2016) History of prior ablation treatment (~03/2017) History of surgery Hx of cholecystectomy Hx of hernia repair Hx of sinus surgery S/P CABG x 3 (~08/2007) S/P cervical spinal fusion S/P lumbar fusion Family History Mother Stroke Father Hypertension Social History household members: spouse Smoking Status: Former smoker alcohol intake: current substance use type: does not use Smoking Status: Former smoker alcohol intake frequency: 0-2 drinks per day Substance Use Type: does not use Exam Initial Vital Signs Initial Vital Signs: Vital Signs Temperature 98.4 F 05/04/22 11:51 Pulse Rate 65 05/04/22 11:51 Respiratory Rate 18 05/04/22 11:51 Blood Pressure 210/90 H 05/04/22 11:51 Pulse Oximetry 96 05/04/22 11:51 Oxygen Delivery Method 05/04/22 11:51 GENERAL: Alert 77-year-old male and in no acute distress. HEENT: Head atraumatic,EOMI, pupils reactive, face symmetric, moist mucous membranes CARDIOVASCULAR: Regular rate and rhythm without murmurs, rubs or gallops. Pain is not reproducible to palpation RESPIRATORY: Breath sounds equal bilaterally, no wheezes rales or rhonchi. ABDOMEN: Soft, nontender. Normoactive bowel sounds all 4 quadrants. No guarding or rebound. EXTREMITIES: Normal range of motion, no clubbing or edema. Neurovascularly intact NEUROLOGICAL: Alert and oriented x4.Normal gait and speech. SKIN: Warm, dry, no laceration, no petechiae, no rashes or lesions. Course Orders Ordered: Discontinued Medications Acetaminophen (Acetaminophen 325 Mg Tablet) 975 mg PO NOW ONE Stop: 05/04/22 14:15 Last Admin: 05/04/22 14:22 Dose: 975 mg Documented By: YOMI Nitroglycerin (Nitroglycerin 0.4 Mg Sl Tab) 0.4 mg SL [id number] PRN PRN Reason: Chest Pain Last Admin: 05/04/22 13:58 Dose: 0.4 mg Documented By: Admin: 05/04/22 13:27 Dose: 0.4 mg Documented By: YOMI Vital Signs Vital signs: Vital Signs - 8 hr 05/04/22 11:51 05/04/22 12:18 05/04/22 13:27 Temperature 98.4 F Pulse Rate 65 65 64 Respiratory Rate 18 18 Blood Pressure 210/90 H 176/94 H 187/88 H Pulse Oximetry 96 99 Oxygen Delivery Method Room Air Room Air 05/04/22 12:26 05/04/22 12:30 05/04/22 12:30 Temperature Pulse Rate 66 62 Respiratory Rate 21 22 Blood Pressure 171/81 H Pulse Oximetry 98 96 Oxygen Delivery Method 05/04/22 12:45 05/04/22 12:45 05/04/22 13:06 Temperature Pulse Rate 63 69 Respiratory Rate 19 25 H Blood Pressure 189/87 H Pulse Oximetry 95 Oxygen Delivery Method 05/04/22 13:07 05/04/22 13:07 05/04/22 13:15 Temperature Pulse Rate 67 Respiratory Rate 14 Blood Pressure 196/90 H 193/86 H Pulse Oximetry Oxygen Delivery Method 05/04/22 13:15 05/04/22 13:25 05/04/22 13:25 Temperature Pulse Rate 64 79 Respiratory Rate 21 23 Blood Pressure 187/88 H Pulse Oximetry 97 Oxygen Delivery Method Room Air 05/04/22 13:58 05/04/22 13:30 05/04/22 13:30 Temperature Pulse Rate 62 63 Respiratory Rate 21 Blood Pressure 176/82 H 183/78 H Pulse Oximetry 97 Oxygen Delivery Method Room Air 05/04/22 13:46 05/04/22 13:46 05/04/22 13:58 Temperature Pulse Rate 74 Respiratory Rate Blood Pressure 165/88 H 176/82 H Pulse Oximetry 96 Oxygen Delivery Method Room Air 05/04/22 13:58 05/04/22 14:00 05/04/22 14:16 Temperature Pulse Rate 65 65 Respiratory Rate 17 21 Blood Pressure 151/87 H Pulse Oximetry 97 95 Oxygen Delivery Method Room Air Room Air 05/04/22 14:16 05/04/22 14:30 05/04/22 14:30 Temperature Pulse Rate 67 63 Respiratory Rate 23 Blood Pressure 159/81 H Pulse Oximetry 95 95 Oxygen Delivery Method Room Air 05/04/22 14:45 05/04/22 14:45 05/04/22 15:00 Temperature Pulse Rate 67 Respiratory Rate 20 Blood Pressure 174/72 H 197/84 H Pulse Oximetry 97 Oxygen Delivery Method Room Air 05/04/22 15:00 05/04/22 15:15 05/04/22 15:15 Temperature Pulse Rate 64 64 Respiratory Rate 24 19 Blood Pressure 180/89 H Pulse Oximetry 97 95 Oxygen Delivery Method Room Air Room Air 05/04/22 15:30 05/04/22 15:30 05/04/22 15:45 Temperature Pulse Rate 67 Respiratory Rate 20 Blood Pressure 199/90 H 185/89 H Pulse Oximetry 96 Oxygen Delivery Method Room Air 05/04/22 15:45 05/04/22 16:00 05/04/22 16:00 Temperature Pulse Rate 62 65 Respiratory Rate 19 22 Blood Pressure 185/95 H Pulse Oximetry 97 99 Oxygen Delivery Method Room Air Room Air 05/04/22 16:15 05/04/22 16:15 05/04/22 16:30 Temperature Pulse Rate 65 Respiratory Rate 22 Blood Pressure 200/86 H 181/92 H Pulse Oximetry 98 Oxygen Delivery Method 05/04/22 16:30 Temperature Pulse Rate 63 Respiratory Rate 20 Blood Pressure Pulse Oximetry 98 Oxygen Delivery Method MDM - Chest Pain Lab Data Result diagrams: 05/04/22 12:07 05/04/22 12:07 Labs: Lab Results 05/04/22 05/04/22 05/04/22 Range/Units 12:07 12:07 13:18 WBC 6.8 (4.5-11.0) X10^3/uL RBC 4.40 L (4.5-5.9) X10^6/uL Hgb 13.3 L (13.5-17.5) g/dL Hct 38.4 L (41-53) % MCV 87.3 (80-100) fL MCH 30.2 (26-34) PG MCHC 34.6 (30-36) % RDW 13.6 (11.6-14.8) % Plt Count 188 (150-400) X10^3/uL Neut % (Auto) 70.2 (50-75) % Lymph % (Auto) 16.6 L (25-40) % [place] % (Auto) 8.8 (3-14) % Eos % (Auto) 3.4 (2-4) % Baso % (Auto) 1.0 (0-2) % Neut # (Auto) 4800 (2570-8442) /uL Lymph # (Auto) 1100 (7268-3693) /uL [place] # (Auto) 600 (0-900) /uL Eos # (Auto) 200 (0-450) /uL Baso # (Auto) 100 (0-100) /uL Sodium 137 (137-145) mmol/L Potassium 4.0 (3.4-5.1) mmol/L Chloride 102 (98-107) mmol/L Carbon Dioxide 25 (22-32) mmol/L BUN 17 (9-20) mg/dL Creatinine 0.70 (0.66-1.25) mg/dL Estimated GFR > 60 (>60) mL/min BUN/Creatinine Ratio 24.3 H (6-22) Glucose 155 H (80-110) mg/dL Calcium 8.8 (8.4-10.2) mg/dL Magnesium 1.9 (1.6-2.3) mg/dL Total Bilirubin 0.3 (0.2-1.3) mg/dL AST 30 (17-59) IU/L ALT 26 (<50) IU/L Alkaline Phosphatase 95 (38-126) U/L Total Creatine Kinase 103 (55-170) U/L CK-MB (CK-2) 4.44 H (<2.37) ng/mL CK-MB (CK-2) Rel Index 4.3 (1.5-5.0) % Troponin I < 0.012 (0.01-0.034) ng/mL Total Protein 6.8 (6.3-8.2) g/dL Albumin 3.8 (3.5-5.0) g/dL Globulin 3.0 (1.7-4.1) g/dL Albumin/Globulin Ratio 1.3 (1.0-2.8) Lipase 73 (23-300) U/L SARS-CoV-2 (PCR) Negative (Negative) 05/04/22 Range/Units 14:25 WBC (4.5-11.0) X10^3/uL RBC (4.5-5.9) X10^6/uL Hgb (13.5-17.5) g/dL Hct (41-53) % MCV (80-100) fL MCH (26-34) PG MCHC (30-36) % RDW (11.6-14.8) % Plt Count (150-400) X10^3/uL Neut % (Auto) (50-75) % Lymph % (Auto) (25-40) % [place] % (Auto) (3-14) % Eos % (Auto) (2-4) % Baso % (Auto) (0-2) % Neut # (Auto) (4848-2375) /uL Lymph # (Auto) (3127-7890) /uL [place] # (Auto) (0-900) /uL Eos # (Auto) (0-450) /uL Baso # (Auto) (0-100) /uL Sodium (137-145) mmol/L Potassium (3.4-5.1) mmol/L Chloride (98-107) mmol/L Carbon Dioxide (22-32) mmol/L BUN (9-20) mg/dL Creatinine (0.66-1.25) mg/dL Estimated GFR (>60) mL/min BUN/Creatinine Ratio (6-22) Glucose (80-110) mg/dL Calcium (8.4-10.2) mg/dL Magnesium (1.6-2.3) mg/dL Total Bilirubin (0.2-1.3) mg/dL AST (17-59) IU/L ALT (<50) IU/L Alkaline Phosphatase (38-126) U/L Total Creatine Kinase (55-170) U/L CK-MB (CK-2) (<2.37) ng/mL CK-MB (CK-2) Rel Index (1.5-5.0) % Troponin I < 0.012 (0.01-0.034) ng/mL Total Protein (6.3-8.2) g/dL Albumin (3.5-5.0) g/dL Globulin (1.7-4.1) g/dL Albumin/Globulin Ratio (1.0-2.8) Lipase (23-300) U/L SARS-CoV-2 (PCR) (Negative) Imaging Data CT scan - chest: Radiologist's Impression: Signed Patient: Karthikeyan Yo MR#: [id number] : 1945 Acct:[id number] Age/Sex: 77 / M Date of Service: 05/04/22 Loc: ED Accession Number: [id number] ?? Procedure: CT angio chest abdomen pelvis Ordering Provider: Lorena John D.O. PROCEDURE:? CT ANGIO CHEST ABDOMEN PELVIS ? INDICATIONS:? chest pain with prior dissection ? TECHNIQUE:? Precontrast 5 mm thick sections acquired from the lung apices to the iliac crests.? After the administration of intravenous contrast, 2.5 mm thick sections again acquired from the lung apices to the iliac crests.? Maximum intensity projection (MIP) oblique sagittal and coronal reformats were then acquired.? For radiation dose reduction, the following was used:? automated exposure control.? ? COMPARISON:? [facility], CT, CT ANGIO CHEST ABDOMEN PELVIS, 08/29/2020, 8:55. ? FINDINGS:? Image quality:? Excellent.? ? AORTA:? Postoperative changes are noted within the ascending thoracic aorta.? Atheromatous calcifications are present throughout the arch.? No aneurysmal dilatation of the arch or descending thoracic aorta.? No aortic dissection.? No periaortic fat stranding, intramural hematomas, or wall thickening. ? CHEST:? Lungs and pleura:? No acute airspace opacities.? No pleural effusions or pneumothorax.? Central and peripheral airways are patent and normal in caliber.? ? Mediastinum:? Heart size is normal.? No pericardial effusion.? Atheromatous calcifications are present within the coronary arteries.? No mediastinal or hilar adenopathy by size criteria.? Central pulmonary arteries are normal in size.? Esophagus is normal in caliber.? No hiatal hernias.? ? Bones and chest wall:? No axillary adenopathy by size criteria.? Thyroid gland is unremarkable.? No suspicious bony lesions.? No vertebral body compression fractures.? ? ? ABDOMEN:? Vasculature:? The celiac axis, SMA, and KYRA are widely patent.? The bilateral renal arteries are patent.? Dense atheromatous calcifications are present throughout the abdominal aorta.? No aneurysmal dilatation, wall thickening, intramural hematoma, or dissection. ? Solid organs:? Liver is normal in size and enhancement.? Gallbladder is surgically absent .? Biliary system is non dilated.? Pancreas enhances normally.? Spleen is normal in size and enhancement.? No adrenal nodules.? Both kidneys are normal in size and enhancement, without hydronephrosis.? ? Peritoneum and bowel:? No free fluid or air.? Bowel loops are normal in caliber and wall thickness.? There are scattered sigmoid diverticula. No evidence for diverticulitis. The appendix is thin walled and gas filled. ? Nodes and vessels:? No retroperitoneal or mesenteric adenopathy by size criteria.? Inferior vena cava is normal in morphology.? ? Miscellaneous:? No ventral hernias.? ? ? PELVIS:? Genitourinary:? Bladder wall thickness is normal.? ? Miscellaneous:? No inguinal hernias or adenopathy.? No ventral hernias.? ? Bones:? No suspicious bony lesions.? No vertebral body compression fractures.? Bilateral hip arthroplasties are grossly intact. ? ? IMPRESSION:? ? 1. No acute thoracic or abdominal aortic dissection or aneurysmal dilatation. ? 2. Postoperative changes redemonstrated at the ascending thoracic aorta.? ? 3. No acute intra-abdominal findings.? Normal appendix.? Diverticulosis.? No acute diverticulitis.? Dictated by: Marie Herrmann M.D. on 05/04/2022 at 13:39 ? ? ECG Data Interpretation: Normal sinus rhythm rate 63 rate here interval 200 QRS [address] changes Normal sinus rhythm rate 70 p.r. interval 198 QRS [address] changes Normal sinus rhythm rate 70 ND interval 222 QRS 86 MDM Narrative Medical decision making narrative: Tried for 3-1/2 hours to get in touch with [facility]. Finally did talk with Dr. Bernal, who states chest pain is likely secondary to uncontrolled blood pressure. He has 2- troponins. He states that he takes his blood pressure at home regularly it is normally in the 150s. He does not believe that his chest pain is related it I blood pressure. However it has been persistent 5. EMR states that he is on sign twice a day however patient states that he is not clonidine twice a day he does take metoprolol and lisinopril At this time cardiology recommends outpatient follow up. I have explained to both patient and at the full cardiac workup has not been done I still strongly recommend that he have a stress test and further workup. I also encouraged him to return to the emergency department if his chest pain should change or worsen in any way shape or form. Discharge Plan Departure Patient Disposition: Home Clinical Impression: Chest pain, Hypertension Instructions: High Blood Pressure, DI for Chest Pain Activity Restrictions/Additional Instructions: *You have been diagnosed with high blood pressure in chest *What to do: You do need stress test and an echocardiogram. Please call your newspaper photographer to schedule this. Also please check your blood pressure regularly at least once a day. He may need blood pressure medication adjustment. This could be causing and affecting some of your chest discomfort. You have not had a complete workup you need a stress test and echocardiogram *Continue to take medications as directed *Follow up with your primary care provider in 2-3 days or call [phone] Call your newspaper photographer tomorrow to schedule appointment as soon as possible *Return to ER if you should have chest pain shortness of breath palpitations dizziness or any new, worsening or concerning symptoms Prescriptions: No Action multivitamin [Multiple Vitamins] 1 EACH tablet 1 tab PO DAILY Qty: 0 fluticasone propionate 16 GM spray,suspension 1 spray Intranasal DAILY PRN (Reason: Allergy Symptoms) Qty: 0 ferrous sulfate 325 mg (65 mg iron) tablet,delayed release (DR/EC) 325 mg PO DAILY Label Comments: take 1 tablet by mouth once daily glipizide [Glucotrol XL] 2.5 mg tablet extended release 24 hr 2.5 mg PO DAILY meclizine 25 mg tablet 25 mg PO QID PRN (Reason: vertigo) Qty: 30 0RF clonidine HCl 0.1 mg tablet 0.2 mg PO BID lisinopril 10 mg tablet 10 mg PO DAILY trazodone 100 mg tablet 400 tab PO BEDTIME 30 Days Qty: 120 0RF levalbuterol tartrate [Xopenex HFA] 45 mcg/actuation HFA aerosol inhaler 1 puff INHALATION Q4-6H PRN (Reason: shortness of breath or wheezing) Qty: 15 0RF Zyrtec 10 mg Capsule 10 mg PO DAILY furosemide 40 mg tablet 40 mg PO DAILY Label Comments: take 1 tablet by mouth once daily metoprolol succinate 100 mg Tablet Extended Release 24 Hr 100 mg PO DAILY acetaminophen-codeine 300-30 mg tablet 2 tab PO Q4H PRN (Reason: Pain (Scale Score 4-6)) montelukast 10 mg Tablet 10 mg PO DAILY docusate sodium 100 mg Capsule 100 mg PO BID PRN (Reason: constipation) Qty: 60 2RF oxycodone 5 mg tablet 5 mg PO Q4H PRN (Reason: pain, moderate) Qty: 60 0RF Rx Instructions: 1-2 tabs q 4 hours PRN moderate to severe pain Referrals: Romi Tavera MD [Primary Care Provider] - Yogesh Jacobs MD [Non-Staff] - Visit Report Forms: Patient Portal/API
--- NOTE | 2022-05-04 12:45 | DI.CT.S_ITS ---
PROCEDURE: CT ANGIO CHEST ABDOMEN PELVIS INDICATIONS: chest pain with prior dissection TECHNIQUE: Precontrast 5 mm thick sections acquired from the lung apices to the iliac crests. After the administration of intravenous contrast, 2.5 mm thick sections again acquired from the lung apices to the iliac crests. Maximum intensity projection (MIP) oblique sagittal and coronal reformats were then acquired. For radiation dose reduction, the following was used: automated exposure control. COMPARISON: [facility], CT, CT ANGIO CHEST ABDOMEN PELVIS, 08/29/2020, 8:55. FINDINGS: Image quality: Excellent. AORTA: Postoperative changes are noted within the ascending thoracic aorta. Atheromatous calcifications are present throughout the arch. No aneurysmal dilatation of the arch or descending thoracic aorta. No aortic dissection. No periaortic fat stranding, intramural hematomas, or wall thickening. CHEST: Lungs and pleura: No acute airspace opacities. No pleural effusions or pneumothorax. Central and peripheral airways are patent and normal in caliber. Mediastinum: Heart size is normal. No pericardial effusion. Atheromatous calcifications are present within the coronary arteries. No mediastinal or hilar adenopathy by size criteria. Central pulmonary arteries are normal in size. Esophagus is normal in caliber. No hiatal hernias. Bones and chest wall: No axillary adenopathy by size criteria. Thyroid gland is unremarkable. No suspicious bony lesions. No vertebral body compression fractures. ABDOMEN: Vasculature: The celiac axis, SMA, and KYRA are widely patent. The bilateral renal arteries are patent. Dense atheromatous calcifications are present throughout the abdominal aorta. No aneurysmal dilatation, wall thickening, intramural hematoma, or dissection. Solid organs: Liver is normal in size and enhancement. Gallbladder is surgically absent . Biliary system is non dilated. Pancreas enhances normally. Spleen is normal in size and enhancement. No adrenal nodules. Both kidneys are normal in size and enhancement, without hydronephrosis. Peritoneum and bowel: No free fluid or air. Bowel loops are normal in caliber and wall thickness. There are scattered sigmoid diverticula. No evidence for diverticulitis. The appendix is thin walled and gas filled. Nodes and vessels: No retroperitoneal or mesenteric adenopathy by size criteria. Inferior vena cava is normal in morphology. Miscellaneous: No ventral hernias. PELVIS: Genitourinary: Bladder wall thickness is normal. Miscellaneous: No inguinal hernias or adenopathy. No ventral hernias. Bones: No suspicious bony lesions. No vertebral body compression fractures. Bilateral hip arthroplasties are grossly intact. IMPRESSION: 1. No acute thoracic or abdominal aortic dissection or aneurysmal dilatation. 2. Postoperative changes redemonstrated at the ascending thoracic aorta. 3. No acute intra-abdominal findings. Normal appendix. Diverticulosis. No acute diverticulitis. Dictated by: Marie Herrmann M.D. on 05/04/2022 at 13:39 Approved by: Marie Herrmann M.D. on 05/04/2022 at 13:46
[2022-05-04 12:51] LABS: Troponin I < 0.012 ng/mL (0.01-0.034)
[2022-05-04 12:56] LABS: CKMB % Relative Index 4.3 % (1.5-5.0); Creatine Kinase MB 4.44 ng/mL (<2.37)
[2022-05-04] MEDS: NITROGLYCERIN 0.4 MG SL TAB SL ×2 (13:27→13:58)
[2022-05-04 13:47] LABS: COVID19 -Nasal RAPID Negative (Negative)
[2022-05-04] MEDS: ACETAMINOPHEN 325 MG TABLET 975 MG PO (14:22)
[2022-05-04 14:58] LABS: Troponin I < 0.012 ng/mL (0.01-0.034)
== END 2022-05-04 17:25 | disposition home or self-care (01) ==
PROVIDERS: Emergency Provider Emergency Medicine; PCP Internal Medicine
DX: R07.9 Chest pain, unspecified (principal); I10 Essential (primary) hypertension; Z20.822 Contact with and (suspected) exposure to COVID-19
CPT/HCPCS: 36415; 71045; 71275; 74174; 80053; 82550; 82553; 83690; 83735; 84484; 85025; 87635; 93005; 99284; C9803; Q9967

== ENCOUNTER 2023-09-23 13:14 | Emergency (ER) | payer OTHER, SELFPAY ==
[2022-02-04 17:45] VITALS: BMI 28.3
[2023-09-23 13:18] VITALS: BP 176/81; PULSE 97; RESP 18; TEMP 36.7; O2SAT 97; BMI 26.1
[2023-09-23 14:00] LABS: Add Manual Diff / Slide Review NO; Basophils Absolute Auto 0 /uL (0-100); Basophils Percent Auto 0.4 % (0-2); Eosinophils Absolute Auto 100 /uL (0-450); Eosinophils Percent Auto 1.2 % (2-4); Hematocrit 41.2 % (41-53); Hemoglobin 13.7 g/dL (13.5-17.5); Lymphocytes Absolute Auto 900 /uL (1100-4500); Lymphocytes Percent Auto 8.9 % (25-40); Mean Corpuscular HGB Conc 33.2 % (30-36); Mean Corpuscular Hemoglobin 29.5 PG (26-34); Mean Corpuscular Volume 88.8 fL (80-100); Monocytes Absolute Auto 500 /uL (0-900); Monocytes Percent Auto 5.2 % (3-14); Neutrophils Absolute Auto 8300 /uL (1500-7000); Neutrophils Percent Auto 84.3 % (50-75); Platelet Count 303 X10^3/uL (150-400); Red Blood Cell Count 4.64 X10^6/uL (4.5-5.9); Red Cell Distribution Width 13.2 % (11.6-14.8); White Blood Cell Count 9.8 X10^3/uL (4.5-11.0)
[2023-09-23 14:06] LABS: Prothrombin Time 11.6 SECONDS (9.4-12.5)
[2023-09-23 14:14] LABS: Alanine Aminotransferase 31 IU/L (<50); Albumin 4.6 g/dL (3.5-5.0); Albumin Globulin Ratio 1.3 (1.0-2.8); Alkaline Phosphatase 86 U/L (38-126); Aspartate Aminotransferase 33 IU/L (17-59); BUN Creatinine Ratio 23.5 (6-22); Bilirubin Total 0.5 mg/dL (0.2-1.3); Blood Urea Nitrogen 16 mg/dL (9-20); Calcium 9.5 mg/dL (8.4-10.2); Carbon Dioxide 24 mmol/L (22-32); Chloride 101 mmol/L (98-107); Estimated Glomerular Filt Rate > 60 mL/min (>60); Globulin 3.5 g/dL (1.7-4.1); Glucose 181 mg/dL (80-110); HEMOLYSIS < 15 (0-50); Lipase 106 U/L (23-300); Potassium 3.7 mmol/L (3.4-5.1); Sodium 138 mmol/L (137-145); Total Protein 8.1 g/dL (6.3-8.2)
[2023-09-23] MEDS: OXYCODONE IR 5 MG TABLET PO (14:26)
--- NOTE | 2023-09-23 15:21 | ED_ITS ---
HPI - Abdominal Pain General Chief Complaint: Abdominal Pain Stated Complaint: pain and bulging rt side Time Seen by Provider: 09/23/23 14:49 Source: patient Mode of arrival: Ambulatory History of Present Illness HPI narrative: patient here with complains of right side abdominal wall distention that has been there for over 2 months but is worsening. No changes in bowel movements or urination. No constipation or diarrhea. No known history of abdominal wall hernias in the past. There is history of gallbladder surgery. Patient states has had Dilaudid in the past without hallucinations or side effects. Related Data Home Medications Medication Instructions Recorded Confirmed multivitamin (Multiple Vitamins 1 tab PO DAILY ##0 12/21/16 02/04/22 tablet) fluticasone propionate 50 1 spray intranasal DAILY PRN 11/03/17 02/04/22 mcg/actuation nasal Allergy Symptoms ##0 spray,suspension cetirizine 10 mg capsule (Zyrtec) 10 mg PO DAILY 05/23/19 02/04/22 ferrous sulfate 325 mg (65 mg 325 mg PO DAILY 10/20/19 02/04/22 iron) tablet,delayed release glipizide 2.5 mg tablet, extended 2.5 mg PO DAILY 10/09/21 02/04/22 release 24 hr (Glucotrol XL) clonidine HCl 0.1 mg tablet 0.2 mg PO BID 12/09/21 02/04/22 lisinopril 10 mg tablet 10 mg PO DAILY 12/09/21 02/04/22 acetaminophen 300 mg-codeine 30 mg 2 tab PO Q4H PRN Pain (Scale Score 02/04/22 02/04/22 tablet 4-6) furosemide 40 mg tablet 40 mg PO DAILY 02/04/22 02/04/22 metoprolol succinate 100 mg 100 mg PO DAILY 02/04/22 02/04/22 tablet,extended release 24 hr montelukast 10 mg tablet 10 mg PO DAILY 02/04/22 02/04/22 Previous Rx's Medication Instructions Recorded levalbuterol tartrate 45 1 puff inhalation Q4-6H PRN 06/23/18 mcg/actuation aerosol inhaler shortness of breath or wheezing (Xopenex HFA) #15 grams meclizine 25 mg tablet 25 mg PO QID PRN vertigo #30 tabs 10/10/21 trazodone 100 mg tablet 400 tab PO BEDTIME 30 days #120 12/11/21 tabs docusate sodium 100 mg capsule 100 mg PO BID PRN constipation #60 02/08/22 caps oxycodone 5 mg tablet 5 mg PO Q4H PRN pain, moderate #60 02/08/22 tabs peg 3350-electrolytes 236 240 ml PO Q10M #4,000 mL 09/23/23 gram-22.74 gram-6.74 gram-5.86 gram solution (GaviLyte-G) Allergies Allergy/AdvReac Type Severity Reaction Status Date / Time diazepam [From Valium] Allergy Severe Confusion Verified 09/23/23 13:23 gabapentin Allergy Severe Hallucinati Verified 09/23/23 13:25 ng hydromorphone [From Dilaudid] Allergy Severe Hallucinating, Verified 09/23/23 13:23 He gets out of his mind morphine Allergy Severe Hallucinating, Verified 09/23/23 13:23 He gets out of his mind celecoxib [CELECOXIB] Allergy Mild SWELLING Verified 09/23/23 13:23 latex [LATEX] Allergy Mild RASH Verified 09/23/23 13:23 W/EXTENDED EXPOSURE Sulfa (Sulfonamide Allergy Mild RASH Verified 09/23/23 13:23 Antibiotics) [SULFA (SULFONAMIDE ANTIBIOTICS)] fentanyl AdvReac Severe Confusion Verified 09/23/23 13:23 varenicline [VARENICLINE] AdvReac Severe Paranoia Verified 09/23/23 13:23 buprenorphine [BUPRENORPHINE] AdvReac Mild NAUSEA, Verified 09/23/23 13:23 DIZZINESS hyoscyamine [HYOSCYAMINE] AdvReac Mild LEG Verified 09/23/23 13:23 JERKING, ANXIETY, NAUSEA W/I MINUTES [id number] Reductase AdvReac Mild WEAK Verified 09/23/23 13:23 Inhibitor MUSCLES [[id number] REDUCTASE INHIBITOR] Review of Systems Review of Systems Narrative: GENERAL: negative chills, fatigue, malaise, fever, sweats. HEENT: negative sinus pain, ear pain, sore throat RESPIRATORY: negative dyspnea, cough CARDIOVASCULAR: negative chest pain, palpitations GASTROINTESTINAL: negative nausea, vomiting, Positiveabdominal pain : negative dysuria, frequency, hematuria MUSCULOSKELETAL: negative muscle or bony pain SKIN: negative rash, skin lesions NEUROLOGIC: negative weakness, numbness ROS Unobtainable: All systems reviewed & are unremarkable except as noted in HPI and below Patient History Medical History Achalasia Anginal pain Asthma Atrial fibrillation Cervical spinal stenosis Chronic obstructive pulmonary disease (10/23/16) COPD (chronic obstructive pulmonary disease) Coronary artery disease History of aortic dissection (~08/2007) Hypertension Ischemic cardiomyopathy Narcotic dependence Neck pain, chronic Ventricular bigeminy Surgical History H/O arthroscopic knee surgery (11/15/17) History of arthroplasty of left knee (05/25/19) History of arthroplasty of right knee History of bilateral total hip arthroplasty History of cardiac cath (~03/2014) History of esophageal surgery History of incision and drainage (~2016) History of prior ablation treatment (~03/2017) History of surgery Hx of cholecystectomy Hx of hernia repair Hx of sinus surgery S/P CABG x 3 (~08/2007) S/P cervical spinal fusion S/P lumbar fusion Family History Mother Stroke Father Hypertension Social History household members: spouse Smoking Status: Former smoker alcohol intake: current substance use type: does not use Smoking Status: Former smoker alcohol intake frequency: 0-2 drinks per day Substance Use Type: does not use Exam Narrative Exam Narrative: GENERAL: in no distress, not toxic not dyspneic HEAD: Normocephalic. EYES: Pupils equal round ENT: Mucous membranes moist. NECK: Trachea midline. CARDIOVASCULAR: Regular rate and rhythm RESPIRATORY: Clear to auscultation. Breath sounds equal bilaterally. No wheezes, rales, or rhonchi. GASTROINTESTINAL: Abdomen soft, Palpable distention on the right lower quadrant laterally. . It is tender to touch.No pain out of proportion to exam. Bowel sounds are present. No peritonealSigns. . No skin discoloration or erythema or ecchymosis EXTREMITIES: No gross deformities. BACK: No flank tenderness. NEURO: AOx4. SKIN: Warm and dry PSYCH: Not anxious, is cooperative Initial Vital Signs Initial Vital Signs: Vital Signs Temperature 98.1 F 09/23/23 13:18 Pulse Rate 97 H 09/23/23 13:18 Respiratory Rate 18 09/23/23 13:18 Blood Pressure 176/81 H 09/23/23 13:18 Pulse Oximetry 97 09/23/23 13:18 Oxygen Delivery Method Room Air 09/23/23 13:18 Course Orders Ordered: Discontinued Medications Hydromorphone HCl (Hydromorphone 1 Mg Inj) 1 mg IV NOW ONE Stop: 09/23/23 15:16 Last Admin: 09/23/23 15:27 Dose: 1 mg Documented By: CHERI Sodium Chloride (Normal Saline 0.9%) 500 mls @ 1,000 mls/hr IV BOLUS ONE Stop: 09/23/23 15:49 Last Infusion: 09/23/23 16:27 Dose: Infused Documented By: Admin: 09/23/23 15:27 Dose: 1,000 mls/hr Documented By: CHERI Ondansetron HCl (Ondansetron 4 Mg/2 Ml Inj) 4 mg IV NOW PRN PRN Reason: Nausea And Vomiting Ondansetron HCl (Ondansetron 4 Mg Odt) 4 mg PO NOW PRN PRN Reason: Nausea And Vomiting Oxycodone HCl (Oxycodone Ir 5 Mg Tablet) 5 mg PO NOW ONE Stop: 09/23/23 14:13 Last Admin: 09/23/23 14:26 Dose: 5 mg Documented By: COY Trazodone HCl (Trazodone 50 Mg Tablet) 400 mg PO NOW ONE Stop: 09/23/23 17:16 Last Admin: 09/23/23 17:16 Dose: 400 mg Documented By: ENRIQUE Vital Signs Vital signs: Vital Signs - 8 hr 09/23/23 13:18 Temperature 98.1 F Pulse Rate 97 H Respiratory Rate 18 Blood Pressure 176/81 H Pulse Oximetry 97 Oxygen Delivery Method Room Air MDM - Abdominal Pain Lab Data 09/23/23 13:35 09/23/23 13:35 Labs: Lab Results 09/23/23 Range/Units 13:35 WBC 9.8 (4.5-11.0) X10^3/uL RBC 4.64 (4.5-5.9) X10^6/uL Hgb 13.7 (13.5-17.5) g/dL Hct 41.2 (41-53) % MCV 88.8 (80-100) fL MCH 29.5 (26-34) PG MCHC 33.2 (30-36) % RDW 13.2 (11.6-14.8) % Plt Count 303 (150-400) X10^3/uL Neut % (Auto) 84.3 H (50-75) % Lymph % (Auto) 8.9 L (25-40) % [place] % (Auto) 5.2 (3-14) % Eos % (Auto) 1.2 L (2-4) % Baso % (Auto) 0.4 (0-2) % Neut # (Auto) 8300 H (0654-9240) /uL Lymph # (Auto) 900 L (6917-8836) /uL [place] # (Auto) 500 (0-900) /uL Eos # (Auto) 100 (0-450) /uL Baso # (Auto) 0 (0-100) /uL PT 11.6 (9.4-12.5) SECONDS INR 1.0 (0.9-1.3) Sodium 138 (137-145) mmol/L Potassium 3.7 (3.4-5.1) mmol/L Chloride 101 (98-107) mmol/L Carbon Dioxide 24 (22-32) mmol/L BUN 16 (9-20) mg/dL Creatinine 0.68 (0.66-1.25) mg/dL Estimated GFR > 60 (>60) mL/min BUN/Creatinine Ratio 23.5 H (6-22) Glucose 181 H (80-110) mg/dL Calcium 9.5 (8.4-10.2) mg/dL Total Bilirubin 0.5 (0.2-1.3) mg/dL AST 33 (17-59) IU/L ALT 31 (<50) IU/L Alkaline Phosphatase 86 (38-126) U/L Total Protein 8.1 (6.3-8.2) g/dL Albumin 4.6 (3.5-5.0) g/dL Globulin 3.5 (1.7-4.1) g/dL Albumin/Globulin Ratio 1.3 (1.0-2.8) Lipase 106 (23-300) U/L Point of care testing: Urine Dip Bedside Urine Glucose 100 mg/dl Bedside Urine Bilirubin - Negative Bedside Urine Ketone - Negative Urine Specific [place] 1.020 Bedside Urine Occult Blood - Negative Bedside Urine pH 5.5 Bedside Urine Protein - Negative Bedside Urine Urobilinogen - Negative Bedside Urine Nitrite - Negative Bedside Urine Leukocytes - Negative Esterase Imaging Data CT scan - abdomen/pelvis: Radiologist's Impression: [address] [address] [address] Scan Report Signed Patient: Karthikeyan Yo MR#: [id number] : 1945 Acct:[id number] Age/Sex: 78 / M Date of Service: 09/23/23 Loc: ED Accession Number: [id number] Procedure: CT abdomen pelvis w con Ordering Provider: Beny Gutierrez MD PROCEDURE: CT ABDOMEN PELVIS W CON INDICATIONS: Right abdominal pain/ hernia/ IV contrast only TECHNIQUE: After the administration of intravenous contrast, axial sections acquired from the lung bases to the pubic symphysis. Coronal and sagittal reformats were performed. For radiation dose reduction, the following was used: automated exposure control, adjustment of mA and/or kV according to patient size. COMPARISON: [facility], CT, CT ABDOMEN PELVIS W CON, 02/06/2022, 21:10. FINDINGS: Image quality: Diagnostic. Lower Chest: No significant findings. ABDOMEN: Liver: No solid mass. Diffuse fatty infiltration of the liver. Gallbladder: Gallbladder is surgically absent. Biliary ducts: Mild intra hepatic and extrahepatic biliary tree prominence likely reflective cholecystectomy status. Pancreas: No ductal dilation. Spleen: Size is within normal limits. Adrenal Glands: No adrenal nodules. Kidneys and Ureters: No hydronephrosis. No solid mass. No complex renal cystic lesion which requires follow up. Stomach and Bowel: Normal colonic caliber, without significant wall thickening. Moderate amount of stool in the right colon and transverse colon. Colonic diverticula without evidence of diverticulitis. The appendix is normal. Peritoneum: No abnormal intraperitoneal fluid. No free air. Ventral Wall: No significant ventral hernia. Abdominal Nodes: No retroperitoneal or mesenteric adenopathy by size criteria. Vessels: Aorta and inferior vena cava are normal in size. Scattered atherosclerotic calcifications involving the abdominal and pelvic vasculature. PELVIS: Pelvic Organs: Unremarkable. Bladder: No bladder wall thickening, accounting for underdistention. Pelvic Nodes: No enlarged lymph nodes. Miscellaneous: No inguinal hernias are seen. Hernia mesh in right lower anterior pelvic wall/right groin. Bones: Spine degenerative disc disease and facet arthropathy. Stable lumbar spine fixation hardware. Stable bilateral hip arthroplasties. IMPRESSION: No acute disease process. Moderate right colon and transverse colon fecal loading. Dictated by: Rubia Garrison MD, PhD on 09/23/2023 at 16:08 Approved by: Rubia Garrison MD, PhD on 09/23/2023 at 16:13 [facility] Narrative Medical decision making narrative: patient here with complains of right side abdominal wall distention that has been there for over 2 months but is worsening. No changes in bowel movements or urination. No constipation or diarrhea. No known history of abdominal wall hernias in the past. There is history of gallbladder surgery. Patient states has had Dilaudid in the past without hallucinations or side effects. After history and examPercocet Dilaudid Zofran normal saline CT abdomen pelvis CBC CMP EKG [facility] CC: abdominal pain Complicating co-morbidities: none Data collected from: patient and Medical records reviewed: no recent visit for this complaint Differential considered: Includes but not limited to appendicitis Hernia/ incarcerated reducible strangulated Exam documented above, pertinent findings include: palpable Distentionabdominal wall Lab Test results independently reviewed as above. Pertinent findings: WBC 9.8 GFR greater than 60 AST 33 ALT 31 Independently reviewed EKG EKG sinus rhythm rate [address] elevation depression Imaging studies independently reviewed: CT abdomen pelvis right-sided colonic burden Consultations: none indicated this time Treatments: Percocet Dilaudid Zofran normal saline Re-evaluations: reviewed results with patient . At this time he will need laxatives/enemas to help promote bowel movements. I will providePrescription for GoLYTELY. otherwise they can use [id number] laxatives and enemas Discussion: appropriate for discharge home. Exam is reassuring as well as laboratory studies and imaging. Patient needs to promote better bowel movements and dietary changes. is driving. Return precautions reviewed. Not toxic at discharge. Diagnosis: Abdominal pain/constipation Discharge Plan Departure Patient Disposition: Home Clinical Impression: Abdominal pain, Constipation Instructions: DI for Abdominal Pain-Adult, DI for Constipation Activity Restrictions/Additional Instructions: please see family doctor next week for re-evaluation. Please drink plenty of fluids. CT imaging today does not show a hernia but does show a lot stool retention in your colon. Prescription for GoLYTELY has been provided. Please start this tomorrow or when you return home To help promote bowel Movement. Please increase daily fruits and fibers and salads they help bowel movements. Return if worse if any questions or concerns Prescriptions: New peg 3350-electrolytes [GaviLyte-G] 236-22.74-6.74 -5.86 gram recon soln 240 ml PO Q10M Qty: 4000 0RF Rx Instructions: until fecal effluent is clear No Action multivitamin [Multiple Vitamins] 1 EACH tablet 1 tab PO DAILY Qty: 0 fluticasone propionate 16 GM spray,suspension 1 spray Intranasal DAILY PRN (Reason: Allergy Symptoms) Qty: 0 ferrous sulfate 325 mg (65 mg iron) tablet,delayed release (DR/EC) 325 mg PO DAILY Patient Comments: take 1 tablet by mouth once daily glipizide [Glucotrol XL] 2.5 mg tablet extended release 24 hr 2.5 mg PO DAILY meclizine 25 mg tablet 25 mg PO QID PRN (Reason: vertigo) Qty: 30 0RF clonidine HCl 0.1 mg tablet 0.2 mg PO BID lisinopril 10 mg tablet 10 mg PO DAILY trazodone 100 mg tablet 400 tab PO BEDTIME 30 Days Qty: 120 0RF levalbuterol tartrate [Xopenex HFA] 45 mcg/actuation HFA aerosol inhaler 1 puff INHALATION Q4-6H PRN (Reason: shortness of breath or wheezing) Qty: 15 0RF Zyrtec 10 mg Capsule 10 mg PO DAILY furosemide 40 mg tablet 40 mg PO DAILY Patient Comments: take 1 tablet by mouth once daily metoprolol succinate 100 mg Tablet Extended Release 24 Hr 100 mg PO DAILY acetaminophen-codeine 300-30 mg tablet 2 tab PO Q4H PRN (Reason: Pain (Scale Score 4-6)) montelukast 10 mg Tablet 10 mg PO DAILY docusate sodium 100 mg Capsule 100 mg PO BID PRN (Reason: constipation) Qty: 60 2RF oxycodone 5 mg tablet 5 mg PO Q4H PRN (Reason: pain, moderate) Qty: 60 0RF Rx Instructions: 1-2 tabs q 4 hours PRN moderate to severe pain Referrals: Romi Mcneill MD [Primary Care Provider] - Stand Alone Forms: Patient Portal/API
[2023-09-23] MEDS: HYDROMORPHONE 1 MG INJ IV (15:27)
[2023-09-23] MEDS: SODIUM CHLORIDE 0.9% 500 ML 1000 ML IV (15:27)
[2023-09-23 17:15] VITALS: BP 181/89; PULSE 82; RESP 18; O2SAT 98
[2023-09-23] MEDS: TRAZODONE 50 MG TABLET 400 MG PO (17:16)
--- NOTE | 2023-09-23 17:40 | PC.NURSE ---
trazodone 400 mg po given to for patient to take tonight.
== END 2023-09-23 17:39 | disposition home or self-care (01) ==
PROVIDERS: Emergency Provider Emergency Medicine; PCP Internal Medicine
DX: R10.31 Right lower quadrant pain (principal); K59.00 Constipation, unspecified; Z79.899 Other long term (current) drug therapy
CPT/HCPCS: 74177; 80053; 81003; 83690; 85025; 85610; 93005; 93010; 96361; 96374; 99284; J1170

== ENCOUNTER → 2023-10-27 08:41 | Outpatient (CLI) | payer OTHER, SELFPAY ==
[2022-02-04 17:45] VITALS: BMI 28.3
[2023-10-25 10:34] VITALS: BMI 28.3
--- NOTE | 2023-10-27 08:47 | DI.CT.S_ITS ---
PROCEDURE: CT CHEST WO CON INDICATIONS: dyspnea on exertion TECHNIQUE: Noncontrast 2.0-2.5 mm thick sections acquired from the pulmonary apices to the posterior costophrenic angles. 7 mm thick axial MIP, and 5 mm coronal and sagittal reformats were then acquired. For radiation dose reduction, the following was used: automated exposure control, adjustment of mA and/or kV according to patient size. COMPARISON: [facility], CT, CT CHEST WO CON, 12/23/2018, 10:07. FINDINGS: Image quality: Diagnostic. Lower Neck: No enlarged lymph nodes. Thyroid: No thyroid nodules which require sonographic follow up, per consensus guidelines. Axillae: No enlarged lymph nodes. Chest Wall: Unremarkable. Bones: Unremarkable. Lungs and Pleura: No pneumothorax or pleural effusions. No consolidation or suspicious nodules. [place] appearance of the distal trachea; correlate with tracheomalacia. Heart: Heart size is normal. No pericardial effusion. Moderate to severe coronary calcifications Thoracic Vessels: The aorta and pulmonary arteries demonstrate normal size. Mediastinum and Pauline: No enlarged lymph nodes. Esophagus: No wall thickening. No hiatal hernia. Other, upper abdomen: Multilevel partially visualized ACDF changes. Medial sternotomy wires. Visualized upper abdomen solid organs and bowel loops appear normal. IMPRESSION: 1. Unremarkable lungs 2. 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 on 10/27/2023 at 10:04 Approved by: Luis Ford M.D. on 10/27/2023 at 10:25
--- NOTE | 2023-10-27 08:48 | DI.RAD.S_ITS ---
PROCEDURE: [place] BARIUM SWALLOW W SPEECH INDICATIONS: CHOKING COMPARISON: TECHNIQUE: Examination was conducted in conjunction with speech pathology per standard protocol. In the lateral projection, filming was performed of the patient swallowing. AP projection filming may also be performed with patient swallowing. COMPARISON: Located [facility], , [place] BARIUM SWALLOW, 02/22/2019, 10:55. FINDINGS: Function: See speech pathology notes for details. Morphology: See speech pathology notes for details IMPRESSION: Please see speech pathology notes for detailed description. Note that incidental view of the mid/lower esophagus shows abnormal tertiary esophageal contractions and spasm. If indicated, endoscopy may further evaluate. Fluoro time: 2.9 minutes, 23 images. Dictated by: Luis Ford M.D. on 10/27/2023 at 17:02 Approved by: Luis Ford M.D. on 10/27/2023 at 17:07
--- NOTE | 2023-10-27 13:15 | ST.SWALLOW ---
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 Romi Mcneill, PCP Dr Lola Collier, Junior Programmer Setting Setting Outpatient Care Patient Information Identification Type Name,Date of Patient History Pt was referred for a Modified Barium Swallow Study at the referral of Dr. Collier. Pt was last seen for a barium swallow assessment on that indicated tertiary contractions of the distal esophagus consistent with esophageal wall muscle motility disorder. Mild to moderate esophageal refulx. .. . Pateint reported sensation of aspiration during the study . Suggest speech pathology evaluation. Pt noted that Dr. Collier recently referred him for the MBSS. He also described his diet as eating nothing solid. He drinks thin liquids and he reports he has taught himself how to swallow so he won't choke. He reports multiple episodes of aspiration pnemonia. Subjective Observations Pt was seated in the fluoroscopy chair. Background information was obtained from the pt and from previos assessment reports in pt chart . He was accompanied by his . Directions and instructions were described for the pt, who indicated he understood and agreed to proceed. Patient Positioning Position View Lateral Imaging Lateral View Textures Administered Trials Presented Thin Liquid via Spoon (IDDSI 0 ),Thin Liquid via Cup (IDDSI 0 ),Mildly Thick Liquid via Cup (IDDSI 2),Extremely Thick Liquid via Spoon (IDDSI 4), Regular (IDDSI 7) Barium Tablet No The IDDSI Framework Protocol: IDDSI.1 Oral Impairment Source: The Modified Barium Swallow Impairment Profile (MBSImP??) Lip Closure No labial escape Tongue Control During Bolus Hold Cohesive bolus between tongue to palatal seal Bolus Preparation/Mastication Slow prolonged chewing/mashing with complete re-collection Bolus Transport/Lingual Motion Slowed tongue motion Oral Residue Complete oral clearance Initiation of Pharyngeal Swallow Bolus head at pyriforms Additional Oral Impairment Observations OME and DKS were observed to be WNL. Mastication demonstrated rotary chew pattern. Bolus formation, control and AP transition were WFL. For the cookie trial (regular texture), the pt insisted he could not swallow it or move the bolus posteriorly. However , with encouragement, he was able to move the bolus to the pharynx and swallowed it without difficulty. Pharyngeal Impairment Source: The Modified Barium Swallow Impairment Profile (MBSImP??) Soft Palate Elevation No bolus between soft palate & pharyngeal wall Laryngeal Elevation Comp.sup.move.thyroid cart.w/ comp.approx.arytenoids to epiglot petiole Anterior Hyoid Excursion Partial anterior movement Epiglottic Movement Complete inversion Laryngeal Vestibular Closure Incomplete; narrow column air/ contrast in laryngeal vestibule Pharyngeal Stripping Wave Present - complete Pharyngoesophageal Segment Opening Partial distention/partial duration; partial obstruction of flow Tongue Base Retraction Wide column of contrast/air betwn tongue base & post. pharyngeal wall Pharyngeal Residue Collection of residue within/ on pharyngeal structures Location Valleculae Additional Pharyngeal Impairment ACDF hardware observed at C3- Observations C4, with an anterior projection of the posterior pharyngeal wall above the PES. Tongue base retraction weakness observed. Laryngeal elevation was adequate; however there was minimal forward movement of the hyoid bone. Epiglottal inversion was complete. PES appeared to demonstrate reduced extension and duration of opening with residual of contrast pooled in PES. Residue of contrast observed with thin the valeculla following the cookie/regular texture trial. Pt was able to clear the residue after gargling with water. No tracheal aspiration nor laryngeal penetration were observed. Pt did cough reflexively with thin water. He did not cough with nectar thick liquids(NTL). Pt's reported that he likes to drink milkshakes and smoothies as they are easier to swallow (e. g., thicker with increased viscosity). The pt reported a globus sensation within his pharynx during observation of esophageal contraction and retro flow of esophageal contents. A/P View Textures Administered Trials Presented Thin Liquid via Cup (IDDSI 0), Mildly Thick Liquid via Spoon (IDDSI 2) The IDDSI Framework Protocol: IDDSI.1 A/P View Observations Pharyngeal Contraction Complete Esophageal Clearance Upright Position Esophageal retention w/ regtrograde flow below pharyngoesoph segment Vocal Fold Function Good Esophageal Function Slowed Clearing,Reverse Peristalsis,Narrowing Additional A-P Observations AP view was obtained in a seated position as pt stated he was unable to stand. Tertiary contractions were observed with esophageal narrowing and retro-flow of esophageal contents. Pt noted a globus sensation at that time. Esophageal clearance was noted to be within a timely manner. Clinical Impressions Dysphagia Type Esophageal Findings Oral and pharyngeal phases of swallowing were observed to be WFL. Esophageal contractions and retro-flow were noted with liquid trials. These results appear to be consistent with those reported on 02/22/2019. Recommendations Diet Liquids Order Thin (IDDSI 0) Diet Order Minced & Moist (IDDSI 5) Medication Recommendation As Tolerated Comments Per pt he does not eat solid foods; do not talk when eating /drinking Aspiration Precautions Recommended Precautions Upright at 90 Degrees,Small Bites/Sips Additional Precautions Swallow completely before speaking during meals; Reduce distractions Treatment Plan Therapy Recommendations Outpatient Speech Therapy Additional Recommended Referrals ST recommended for safe swallow strategies and base of tongue exercises Therapy Strategy Recommendations Sitting Upright (90 deg) Additional Strategies Recommended Reduce distractions; increased mindfulness of swallowing
== END ==
LOC: CT 08:46
PROVIDERS: PCP Internal Medicine; Referring Provider Internal Medicine; Visit Provider Internal Medicine
DX: I25.10 Atherosclerotic heart disease of native coronary artery without angina pectoris (principal); R07.9 Chest pain, unspecified; R09.89 Other specified symptoms and signs involving the circulatory and respiratory systems; Z98.1 Arthrodesis status
CPT/HCPCS: 71250; 74230; 92611

== ENCOUNTER → 2023-11-17 10:27 | Outpatient (CLI) | payer OTHER, SELFPAY ==
[2023-10-25 10:34] VITALS: BMI 28.3
[2023-11-17 11:25] LABS: Add Manual Diff / Slide Review NO; Basophils Absolute Auto 0 /uL (0-100); Basophils Percent Auto 0.4 % (0-2); Eosinophils Absolute Auto 0 /uL (0-450); Eosinophils Percent Auto 0.5 % (2-4); Hematocrit 37.5 % (41-53); Hemoglobin 12.6 g/dL (13.5-17.5); Lymphocytes Absolute Auto 600 /uL (1100-4500); Lymphocytes Percent Auto 7.9 % (25-40); Mean Corpuscular HGB Conc 33.5 % (30-36); Mean Corpuscular Hemoglobin 29.2 PG (26-34); Mean Corpuscular Volume 87.2 fL (80-100); Monocytes Absolute Auto 300 /uL (0-900); Monocytes Percent Auto 3.7 % (3-14); Neutrophils Absolute Auto 6600 /uL (1500-7000); Neutrophils Percent Auto 87.5 % (50-75); Platelet Count 239 X10^3/uL (150-400); Red Cell Distribution Width 13.6 % (11.6-14.8); White Blood Cell Count 7.5 X10^3/uL (4.5-11.0)
[2023-11-17 11:52] LABS: BUN Creatinine Ratio 19.6 (6-22); Blood Urea Nitrogen 11 mg/dL (9-20); Calcium 9.3 mg/dL (8.4-10.2); Carbon Dioxide 30 mmol/L (22-32); Chloride 104 mmol/L (98-107); Estimated Glomerular Filt Rate > 60 mL/min (>60); Glucose 126 mg/dL (80-110); HEMOLYSIS < 15 (0-50); Potassium 4.4 mmol/L (3.4-5.1); Sodium 139 mmol/L (137-145)
== END ==
PROVIDERS: PCP Internal Medicine; Referring Provider Orthopaedic Surgery; Visit Provider Orthopaedic Surgery
DX: Z01.818 Encounter for other preprocedural examination (principal); Z01.812 Encounter for preprocedural laboratory examination
CPT/HCPCS: 36415; 80048; 85025; 93005; 93010

== ENCOUNTER → 2023-11-29 09:00 | Outpatient (CLI) | payer OTHER, SELFPAY ==
[2023-10-25 10:34] VITALS: BMI 28.3
== END ==
PROVIDERS: PCP Internal Medicine; Referring Provider Orthopaedic Surgery; Visit Provider Orthopaedic Surgery
DX: M19.071 Primary osteoarthritis, right ankle and foot (principal); M75.51 Bursitis of right shoulder
CPT/HCPCS: 73200

== ENCOUNTER → 2023-11-29 09:11 | Outpatient (CLI) | payer OTHER, SELFPAY ==
[2022-02-04 17:45] VITALS: BMI 28.3
[2023-10-25 10:34] VITALS: BMI 28.3
--- NOTE | 2023-11-29 09:13 | DI.NM.S_ITS ---
PROCEDURE: NM RENÉE PERF SPECT R&S PHARM Rest and pharmacological stress myocardial perfusion SPECT with gated imaging and ejection fraction RADIOPHARMACEUTICAL: 10.5 mCi Tc-99m tetrafosmin IV at rest and 27.5 mCi Tc-99m tetrafosmin IV at peak effect of pharmacological stress. A [id number]-[id number] was performed. INDICATIONS: Chest pain, unspecified; RUE PAIN TECHNIQUE: Radiopharmaceutical was injected at peak stress test, and also at rest. SPECT images were obtained. SPECT myocardial perfusion images were displayed in short axis, horizontal long axis, and vertical long axis views. Gated images were reviewed using [employer] software. COMPARISON: None. CARDIAC STRESS: A pharmacologic stress test was performed under the supervision of an attending staff, using an infusion of regadenoson 0.4 mg IV. Hemodynamic data: There is normal blood pressure and heart rate response to pharmacologic stress. Symptoms: The patient denied anginal chest pain. EKG: No diagnostic changes of ischemia; no ectopy. FINDINGS: Raw data: There is good myocardial uptake of radiotracer. No significant motion artifacts. Ydki-fk-uxaab ratio is 0.68 (normal is less than 0.38 for tetrafosmin tracer). Left ventricle function: Gated images demonstrate normal left ventricular wall thickening. No segmental wall motion abnormalities. No transient ischemic dilation; TID is 0.95 (normal less than 1.3). Left ventricle resting end diastolic volume is 141 mL. Left ventricle stress ejection fraction is 65%; normal range is above 45%. Myocardial perfusion: There is normal distribution of activity in the right and left ventricular myocardium. No fixed or reversible perfusion defects. IMPRESSION: Borderline study. While there is no evidence of pharmacologic induced ischemia or scar, end diastolic volume and the lung heart ratio are elevated. TID is normal however. This may be predictive of future coronary events. Dictated by: Cara Webster D.O. on 11/29/2023 at 16:55 Approved by: Cara Webster D.O. on 11/29/2023 at 17:16
--- NOTE | 2023-11-29 09:13 | DI.CT.S_ITS ---
PROCEDURE: CT UE RT WO CON INDICATIONS: Chest pain, unspecified; RUE PAIN TECHNIQUE: Noncontrast 0.75 mm thick sections acquired from the acromioclavicular joint to the inferior scapula, with coronal and sagittal reformatting. COMPARISON: SNO Outside Film, CR, XR SHOULDER 2+ VIEWS RIGHT, 07/19/2023, 12:19. FINDINGS: Bones: Moderate degenerative changes of the right acromioclavicular joint with inferior projecting osteophyte. Severe degenerative changes of the glenohumeral joint with severe joint space narrowing, and mild osteophytosis of the humeral head. No glenoid retroversion. No acute fracture or dislocation of the right shoulder. Visualized right ribs are unremarkable. Soft tissue findings: Small glenohumeral effusion with large subcoracoid bursitis. No ossified intra-articular body. No right axillary adenopathy. Visualized right lung is unremarkable. Coronary artery calcification, incompletely visualized. No significant fatty infiltration or fatty atrophy of the rotator cuff musculature. IMPRESSION: 1. Moderate degenerate change of the acromioclavicular joint. 2. Severe degenerative changes of the glenohumeral joint. No glenoid retroversion. Large subcoracoid bursitis. Dictated by: Katherine Mckeon M.D. on 11/29/2023 at 11:27 Approved by: Katherine Mckeon M.D. on 11/29/2023 at 11:33
== END ==
LOC: NUCM 09:12
PROVIDERS: PCP Internal Medicine; Referring Provider Orthopaedic Surgery; Visit Provider Orthopaedic Surgery
DX: R07.9 Chest pain, unspecified (principal); R09.89 Other specified symptoms and signs involving the circulatory and respiratory systems; M12.811 Other specific arthropathies, not elsewhere classified, right shoulder; M75.51 Bursitis of right shoulder
CPT/HCPCS: 73200; 78452; 93017; A9502; J2785

== ENCOUNTER 2023-12-30 12:23 | Inpatient (IN) | payer OTHER, SELFPAY ==
[2023-10-25 10:34] VITALS: BMI 28.3
[2023-12-20 12:39] VITALS: BMI 25.7
[2023-12-20 14:44] VITALS: BMI 25.7
[2023-12-30] VITALS (15 sets, daily range): BP systolic 103–153; BP diastolic 51–94; PULSE 67–93; RESP 12–20; TEMP 35.8–36.8; O2SAT 90–99; BMI 27.9; BMI 26.5
--- NOTE | 2023-12-30 13:55 | DI.RAD.S_ITS ---
PROCEDURE: XR SHOULDER RT 1V INDICATIONS: TSA TECHNIQUE: 1 views of the shoulder were acquired. COMPARISON: None. FINDINGS: Bones: Patient is post reverse right shoulder arthroplasty. Marked shoulder alignment is anatomic. No fracture or dislocation. No suspicious bony lesions. Visualized ribs appear intact. Soft tissues: Expected postsurgical changes are seen in right shoulder soft tissue. IMPRESSION: Postop changes from reverse right shoulder arthroplasty with anatomic shoulder alignment. Dictated by: eRji Starr M.D. on 12/30/2023 at 19:15 Approved by: Reji Starr M.D. on 12/30/2023 at 19:16
[2023-12-30] MEDS: LACTATED RINGERS 1,000 ML 42 ML IV ×2 (14:10→17:26)
[2023-12-30] MEDS: ACETAMINOPHEN 325 MG TABLET 975 MG PO (14:25)
--- NOTE | 2023-12-30 15:03 | SUR.PREOP ---
Addendum entered by Sky Caamrena R.N. 12/30/23 15:04: left buttock wound that has been treated in wound care per patient report. states he has had wound for approx 1 year Original Note:
--- NOTE | 2023-12-30 15:18 | SUR.PREOP ---
Pt complaining of wheezing and requesting nebulizer. Albuterol neb order from Radha Ortiz NAVIGATION OFFICER in OR #4.
--- NOTE | 2023-12-30 15:29 | PM.PREOP ---
Pre-operative Note Interval Note History & Physical reviewed/Exam performed by Physician: Yes Changes to H&P: No
[2023-12-30] MEDS: CEFAZOLIN 2 GM/100 ML PREMIX 100 ML IV (16:30)
[2023-12-30] MEDS: TRANEXAMIC ACID 1,000 MG VIAL 1000 MG INJ (16:45)
--- NOTE | 2023-12-30 16:59 | SUR.OPER ---
Beach chair with shoulder positioner. Lower body on padded OR bed. Head in foam padded head cradle, secured with straps. Non-operative arm secured and padded over abdomen. Pillow under knees. Safety belt at thigh. Cloth tape over blanket over lower legs.
[2023-12-30] MEDS: BUPIVACAINE 0.25% (PF) 30 ML, EPINEPHrine 0.15 MG INJ (17:04)
--- NOTE | 2023-12-30 18:17 | PM.OP.1 ---
Operative Date/Time/Diagnoses Date of procedure: 12/30/23 Time of procedure: 18:17 Pre-op diagnosis: Right glenohumeral arthritis Post-op diagnosis: same Procedure & Clinicians Procedure: Right reverse total shoulder arthroplasty Same procedure as scheduled: Yes Indications: Indications: This is a who has rotator cuff arthropathy. Symptoms have been present for years, insidious onset. Patient has failed a reasonable attempt at conservative therapy. After extensive discussion in clinic, they wished to go forward with surgery. Risks and benefits were described including the risk of infection, bleeding, damage to internal structures including nerves. We also discussed the risk of failure of surgery and the need for revision surgery as well as the risk of anesthesia. The patient expressed understanding with these risks and wished to go forward with surgery. Surgeon: Miguelangel Webb Realtime Court Reporter: Laura Dickerson Anesthesia Type: General Operative Notes Findings: Findings: Osteoarthritis of the glenoid and humeral head with intact rotator cuff as noted on preoperative imaging and under direct visualization Closure Type: primary Specimen(s): none sent Prosthetic devices, grafts, tissues, transplants, or devices: Tornier implants Base plate: standard 25 mm, +3 mm offset Glenosphere: Standard 36 mm Stem: Perform 3+ Poly: +0 concentric Estimated Blood Loss (mL): 100 Blood products transfused: none Procedure in detail: Patient was seen in the preoperative holding unit. The correct right shoulder was identified and marked with my initials. Again we discussed the risks and benefits of surgery and they wished to go forward with surgery. The patient was brought back to the operating room and placed supine on the operating table. Smooth endotracheal intubation was performed by anesthesia. All prominences were padded and they were placed into the beach chair position. Intravenous antibiotics were given. The right shoulder was then prepped with the standard sterile preparation and draping. A time-out was then performed in my initials were again identified on the correct shoulder. 1 g of IV tranexamic acid was given. A standard deltopectoral incision was made. Skin flaps were made. The cephalic vein was identified and retracted laterally. This was protected throughout the remainder of the case. Sharp dissection was made along the deltoid, subacromial and subcoracoid space to release adhesions. The conjoined tendon was identified and the axillary nerve was palpated and continuous using the tug test. It was protected throughout the remainder of the case. A brown retractor was placed underneath the deltoid muscle and a darach retractor underneath the conjoint tendon. The subscapularis muscle was ntoed to be intact. The anterior circumflex artery and associated veins on the lower border of the subscapularis were identified and tied off using 0-Vicryl. The biceps tendon was identified in the bicipital groove. This was released from its sheath, and taken from its origin on the glenoid and tied into the pectoralis tendon for a solid tenodesis. We then began a subscapularis peel. The subscapularis was tagged with an Ethibond suture. A 360 degree circumferential release of the subscapularis was performed with protection of the axillary nerve. The coracohumeral ligament was released at the base of the coracoid. The shoulder was then dislocated. Osteophytes were removed using combination of rongeur and osteotome. The rotator cuff was noted to be intact. An intramedullary guide was used set at version of 20?. Using an oscillating saw a conservative humeral head cut was made. Impaction reamers were reamed up to a size 3 stem with a built-in angle 135?. A neck protector was placed. Attention was then turned to the glenoid. After retracting the humeral head posteriorly a circumferential release was performed of the capsule with protection of the axillary nerve. The labrum was then released starting at the biceps anchor and going around the rim a small amount of triceps was released from the inferior glenoid. A center guide pin was then placed using the guide, followed by Reamer. After adequate cartilage was removed the boss was reamed and the centeral hole was drilled and measured. The base plate was then implanted and screwed into place. The peripheral screws were then sequentially drilled, measured, and placed. A 36 standard glenosphere was then selected and screwed into place onto the base plate. Turning back to the humerus, the humeral head was delivered and trialed with a 0 concentric. The arm was taken through range of motion and this was felt to be stable. The trial was then removed and a dilute Betadine wash was then performed with 1 L of sterile saline. Before placing the final implant, drill holes were made in the bicipital groove for the subscapularis repair, and sutures were passed through the drill holes. The final stem was then impacted into the humerus. The shoulder was then reduced and again brought through range of motion and was felt to be stable. The subscapularis was then repaired using a modified racking hitch with nice loupes. The skin was closed with 2-0 vicryl and petty followed by Aquacel dressing. Patient was awoken from anesthesia and brought back to the postoperative recovery unit without issue. They were placed into a sling. Assisting participation: This operation could not have been safely performed (without compromising the technical results or length of the procedure) without the assistance of a skilled surgical orderly. The surgical orderly was medically necessary for proper positioning, retraction and manipulation of instruments, proper exposure, graft prep, and manipulation of tissue. Complications: none Post-operative Condition: stable Disposition: PACU Plan for aftercare: Postoperative instructions: Sling to remain on for 6 weeks. No external rotation past neutral for 6 weeks. Okay for the sling to come off for shower. Okay to shower over the Aquacel dressing. If any water gets underneath the dressing, remove the dressing. First postoperative visit in 2 weeks.
[2023-12-30] MEDS: OXYCODONE IR 5 MG TABLET PO ×2 (19:17→21:30)
[2023-12-30] MEDS: ACETAMINOPHEN 325 MG TABLET 650 MG PO (20:02)
[2023-12-30] MEDS: IBUPROFEN 600 MG TABLET PO (20:02)
[2023-12-30] MEDS: ALBUTEROL 2.5 MG/3 ML NEB (ADULT) INH ×2 (20:18→23:32)
[2023-12-30] MEDS: ASPIRIN EC 81 MG TABLET PO (20:37)
[2023-12-30] MEDS: METOPROLOL ER 50 MG TABLET 100 MG PO (20:37)
[2023-12-30] MEDS: PANTOPRAZOLE DR 20 MG TABLET PO (20:38)
[2023-12-30] MEDS: DOCUSATE 100 MG CAPSULE PO (20:38)
[2023-12-30] MEDS: lisinopriL 10 MG TABLET 40 MG PO (20:38)
[2023-12-30] MEDS: TRAZODONE 50 MG TABLET 300 MG PO (20:40)
[2023-12-30] MEDS: SENNOSIDES 8.6 MG TABLET 17.2 MG PO (20:40)
[2023-12-30] MEDS: SODIUM CHLORIDE 0.9% FLUSH 10 ML IV (23:50)
[2023-12-30] MEDS: CEFAZOLIN VIAL 1 GM in SODIUM CHLORIDE 0.9% 100 ML IV (23:51)
[2023-12-31] VITALS (7 sets, daily range): BP systolic 99–140; BP diastolic 55–65; PULSE 60–78; RESP 17–20; TEMP 36.1–36.7; O2SAT 92–96
[2023-12-31] MEDS: OXYCODONE IR 5 MG TABLET PO ×9 (00:01→23:57)
[2023-12-31] MEDS: ACETAMINOPHEN 325 MG TABLET 650 MG PO ×4 (00:01→17:30)
[2023-12-31] MEDS: IBUPROFEN 600 MG TABLET PO ×4 (00:01→17:30)
[2023-12-31] MEDS: ALBUTEROL 2.5 MG/3 ML NEB (ADULT) INH ×4 (05:23→19:31)
[2023-12-31 05:56] LABS: Hematocrit 33.1 % (41-53); Mean Corpuscular HGB Conc 33.3 % (30-36); Mean Corpuscular Hemoglobin 28.4 PG (26-34); Mean Corpuscular Volume 85.3 fL (80-100); Platelet Count 241 X10^3/uL (150-400); Red Blood Cell Count 3.88 X10^6/uL (4.5-5.9); Red Cell Distribution Width 13.7 % (11.6-14.8); White Blood Cell Count 12.6 X10^3/uL (4.5-11.0)
--- NOTE | 2023-12-31 07:28 | P.PN_ITS ---
Subjective Subjective Date Patient Seen: 12/31/23 Time Patient Seen: 07:28 Interval history: Pt sitting up comfortably in a chair. Says his arm 'hurts like hell' but he is otherwise doing well. He is receiving APAP and IBPN scheduled q 6 hrs and oxycodone 5mg regularly q 3hrs. There is no ice currently on shoulder. Pt is in sling. Exam Vital Signs (past 8 hours): - 12/30/23 23:32 12/31/23 05:19 12/31/23 05:23 Temperature 97.5 F L Pulse Rate 76 77 60 Respiratory Rate 18 18 20 Blood Pressure 125/65 Pulse Oximetry 94 93 94 Oxygen Delivery Method Room Air Room Air Oxygen Flow Rate 0 0 Fraction of Inspired Oxygen 21 21 Fraction of Inspired Oxygen 21 SaO2/FiO2 Ratio 447 Oxygen Delivery Method Room Air Oxygen Flow Rate 0 Narrative Exam Narrative: Pt able to wiggle right fingers without difficulty, sensation to touch intact. Sensation to light touch intact throughout RUE. Aquacel dressing w/ minimal bloody drainage. Objective Labs 12/31/23 05:10 Labs: Laboratory Results - last 24 hr 12/31/23 05:10 WBC 12.6 H RBC 3.88 L Hgb 11.0 L Hct 33.1 L MCV 85.3 MCH 28.4 MCHC 33.3 RDW 13.7 Plt Count 241 PFSH Medical History (Updated 12/31/23 @ 07:29 by Lin Wayne PA-C) Sacral decubitus ulcer Aspiration, chronic pulmonary Wound of left buttock (08/2023) Accident Narcotic dependence Ventricular bigeminy Anginal pain Asthma Ischemic cardiomyopathy History of aortic dissection (~08/2007) COPD (chronic obstructive pulmonary disease) Chronic obstructive pulmonary disease (10/23/16) Hypertension Atrial fibrillation Coronary artery disease Achalasia Cervical spinal stenosis Neck pain, chronic Surgical History (Updated 12/31/23 @ 07:29 by Lin Wayne PA-C) History of total replacement of left shoulder joint (05/25/19) History of lumbar spinal fusion (02/04/22) History of ankle surgery (10/2020) History of arthroplasty of left knee (05/25/19) History of incision and drainage (~2016) S/P cervical spinal fusion History of arthroplasty of right knee History of esophageal surgery Hx of hernia repair Hx of cholecystectomy Hx of sinus surgery History of surgery History of bilateral total hip arthroplasty S/P lumbar fusion History of cardiac cath (~03/2014) S/P CABG x 3 (~08/2007) History of prior ablation treatment (~03/2017) H/O arthroscopic knee surgery (11/15/17) Family History Mother Stroke Father Hypertension Social History household members: spouse Smoking Status: Former smoker alcohol intake: current substance use type: does not use Assessment & Plan Post-op Assessment and plan (1) Status post total shoulder arthroplasty: Assessment and Plan narrative: 1) Pt is wheelchair-dependent and says he has care set up at [facility] after 3 midnight hospital stay. CM consulted for discharge planning. I received a call from someone re this pts disposition after I saw him this morning, and was told that 'This is not correct...patient is going to be a difficult placement.' Per our office notes, CM was contacted about this patient's need/desire for SNF on 12/20/2023, so will watch for their recommendations. 2) Continue ASA 81 mg BID for VTE prophylaxis x 4 weeks. 3) PT/OT while hospitalized. 4) Sling to remain on for 6 weeks; can come off for hygiene. No external rotation past neutral for 6 weeks. Okay to shower over the Aquacel dressing. 5) Pt has had difficulty w/ opioid-related mental status changes in the past and should NOT receive hydromorphone, fentanyl, or anything with an MME higher than 1.5. (2) Sacral decubitus ulcer: Assessment and Plan narrative: 1) Sacral decubitus ulcer, unknown staging, present on admission. Pt says he is tx'd weekly at [facility] wound care and a compound of antibiotic/analgesic ointment is applied daily. I will ask our office to get notes from [facility] re this compound and order. Until that time, pt may bring in medication from home and apply per instructions. Postoperative Procedures: Procedures Operation Date: 12/30/23 15:15 Actual Procedure Side Surgeon p Total Shoulder Arthroplasty - Reverse with biceps tenodesis Right Miguelangel Webb MD Postoperative day: 1 Quality VTE Deep Vein Thrombosis/Pulmonary Embolism Present on Admission: No
[2023-12-31] MEDS: polyethylene glycoL 3350 17 GM POWD.PACK PO (09:51)
[2023-12-31] MEDS: CEFAZOLIN VIAL 1 GM in SODIUM CHLORIDE 0.9% 100 ML IV (09:51)
[2023-12-31] MEDS: ASPIRIN EC 81 MG TABLET PO ×2 (09:51→20:47)
[2023-12-31] MEDS: DOCUSATE 100 MG CAPSULE PO ×2 (09:52→20:47)
[2023-12-31] MEDS: FUROSEMIDE 40 MG TABLET PO (09:52)
[2023-12-31] MEDS: AMLODIPINE 5 MG TABLET 2.5 MG PO (09:52)
[2023-12-31] MEDS: MULTIVITAMIN 1 TABLET 1 TAB PO (09:53)
[2023-12-31] MEDS: MONTELUKAST 10 MG TABLET PO (09:53)
[2023-12-31] MEDS: SODIUM CHLORIDE 0.9% FLUSH 10 ML IV ×2 (09:53→23:58)
[2023-12-31] MEDS: LORATADINE 10 MG TABLET PO (09:53)
[2023-12-31] MEDS: PANTOPRAZOLE DR 20 MG TABLET PO ×2 (09:53→20:47)
--- NOTE | 2023-12-31 10:55 | PT.IIE ---
Current Diagnoses Pressure ulcer of sacral region, unspecified stage (12/30/23) Other specific arthropathies, not elsewhere classified, right shoulder (12/30/23) Presence of unspecified artificial shoulder joint (12/30/23) Surgery Performed Operation Date: 12/30/23 15:15 Actual Procedures p Total Shoulder Arthroplasty - Reverse with biceps tenodesis(Right) - Miguelangel Webb MD Surgical History (Last Updated 12/20/23 @ 12:58 by Fern Rosales RN) H/O arthroscopic knee surgery (11/15/17) History of ankle surgery (10/2020) History of arthroplasty of left knee (05/25/19) History of arthroplasty of right knee History of bilateral total hip arthroplasty History of cardiac cath (~03/2014) History of esophageal surgery History of incision and drainage (~2016) History of lumbar spinal fusion (02/04/22) History of prior ablation treatment (~03/2017) History of surgery History of total replacement of left shoulder joint (05/25/19) Hx of cholecystectomy Hx of hernia repair Hx of sinus surgery S/P CABG x 3 (~08/2007) S/P cervical spinal fusion S/P lumbar fusion Medical History (Last Updated 12/31/23 @ 07:29 by Lin Wayne PA-C) Accident Achalasia Anginal pain Aspiration, chronic pulmonary Asthma Atrial fibrillation Cervical spinal stenosis Chronic obstructive pulmonary disease (10/23/16) COPD (chronic obstructive pulmonary disease) Coronary artery disease History of aortic dissection (~08/2007) Hypertension Ischemic cardiomyopathy Narcotic dependence Neck pain, chronic Sacral decubitus ulcer Ventricular bigeminy Wound of left buttock (08/2023) Physical Therapy Inpatient Evaluation/Re-Eval M1 PT/OT-IP Prior Functional Status Start: 12/31/23 13:39 Freq: NEEDED Status: Active Protocol: Document 12/31/23 10:55 AB (Rec: 12/31/23 13:51 AB [id number]) Medical Review Prior Functional Status Medical History Reviewed Yes Communication able to make needs known Mobility and Gait pt stated that he was modified independent with all mobilities and ambulation using a SPC Social History Household Members spouse Living Arrangements House Number of Floors (Floors) Two Floors Number of Stairs To Enter/Railing? ramp to enter; pt stays on main level of the house Home Environment Standard Height Toilet,Walk in Shower,Built-In Shower Seat Home Equipment Straight Cane,Hand Held Shower ,Grab Bars In Shower Additional Social History Comment stated that spouse will not be able to assist him pt stated that he sleeps on his recliner M2 PT-IP Current Condition Start: 12/31/23 13:39 Freq: NEEDED Status: Active Protocol: Document 12/31/23 10:55 AB (Rec: 12/31/23 13:51 AB [id number]) Physical Therapy Current Condition Current Condition Evaluation Date 12/31/23 Treatment Diagnosis s/p TSA reverse; difficulty in walking M3 PT-IP Subjective Start: 12/31/23 13:39 Freq: NEEDED Status: Active Protocol: Document 12/31/23 10:55 AB (Rec: 12/31/23 13:51 AB [id number]) Subjective Physical Therapy Visit Type Type Initial Evaluation Visit Start Time 10:55 Visit Stop Time 11:30 Number of AIRCRAFT MANAGER Visits 0 Physical Therapy Visit Comments Patient Comments agreeable to do PT Therapy Pain Assessment Pain When Pain Assessed At Rest Pain Present Pain Present Pain Reported Location Left Buttock Scale Used pain scale not stated Pain Management Techniques Modification of Treatment,Re- positioning Right Shoulder Scale Used pain scale not stated Pain Management Techniques Distraction,Modification of Treatment,Re-positioning M4 PT-IP Mobility and Gait Start: 12/31/23 13:39 Freq: NEEDED Status: Active Protocol: Document 12/31/23 10:55 AB (Rec: 12/31/23 13:51 AB [id number]) PT-Transfer Assessment Sit to and From Stand Sit to and from Stand Minimal Assistance,Moderate Assistance,1 Person Assistance ,Use of Upper Extremities Equipment Transfer Assistive Device Gait Belt,Straight Cane Orthotic/Prosthetic Devices or Brace: Yes Transfers Transfer Destination Bed,Chair Transfer Technique Stand Step Pivot Transfer Ability Level of Assist Minimal Assistance,Moderate Assistance,1 Person Assistance ,Use of Upper Extremities Comments Mobility Comments pt standing up with NAC to use the urinal. pt sat back on chair and agreeable to do PT. readjusted sling on pt. educated pt regarding R shoudler precautions. post-op folder provided. reviewed HEP and pt completed elbow/hand/ wrist/finger exercises. pt completed sit to stand from chair mod A and max cues with 2 attempts to stand. increase posterior trunk leaning noted. pt completed step transfer to EOB using SPC min to mod A and cues. pt can be impulsive. readjusted sling. pt stated that he sleeps on a recliner and cannot lie back in bed. completed sit to stand from the EOB min to mod A and cues and ambulated ~ 2 ft using SPC mod A and cues and stated that he has to sit down. pt sat on the chair. positioned pt on the chair. call light and table placed within reach. Gait Assessment Gait Gait Assistance Required: Moderate Assistance Distance (Feet) 2 Able to Maintain Weight Bearing Status Yes During Gait Assistive Devices Assistive Device Gait Belt,Straight Cane Orthotic/Prosthetic Devices or Brace: Yes Gait Deviations General Gait Pattern Ataxic,Decreased Stride Length ,Decreased Feet Clearance,Step -to Gait Factors Limiting Gait Function Factors Limiting Gait Function Decreased Activity Tolerance, Decreased Sensation,Decreased Strength,Difficulty Following Directions,Incoordination, Limited Range of Motion,Pain, Poor Balance,Poor Safety Awareness PT-Balance Assessment Sitting Balance and Reactions Static Sitting Balance Ability Good Dynamic Sitting Balance Ability Fair Standing Balance and Reactions Static Standing Balance Ability Poor Dynamic Standing Balance Ability Poor Device Used SPC M5 PT-IP Objective Assessments Start: 12/31/23 13:39 Freq: NEEDED Status: Active Protocol: Document 12/31/23 10:55 AB (Rec: 12/31/23 13:51 AB [id number]) Orientation Orientation/Cognition Level of Alertness Alert Orientation Place,Situation Language Function Ability Hard of Hearing Safety Awareness Decreased Safety Awareness Memory Description Short Term Impaired Gross Range of Motion Lower Extremity ROM Assessment Within Functional Limits Strength Upper Extremity Strength Assessment Within Functional Limits Muscle Tone Muscle Tone WNL Yes M6 PT-IP Treatment Start: 12/31/23 13:39 Freq: NEEDED Status: Active Protocol: Document 12/31/23 10:55 AB (Rec: 12/31/23 13:51 AB [id number]) Physical Therapy Treatment Education Education Provided Precautions,Weight Bearing Status,Post-Op Packet,Safety M7 PT-IP Assessment and Plan Start: 12/31/23 13:39 Freq: NEEDED Status: Active Protocol: Document 12/31/23 10:55 AB (Rec: 12/31/23 13:51 AB [id number]) PT Summary Assessment and Plan Potential Rehabilitation Potential Fair Status of Condition at Evaluation Evolving Summary Impairments Pain,ROM,Strength,Balance, Coordination,Sensation,Tone, Cognition,Bed Mobility, Transfers,Gait,Activity Tolerance Assessment Summary pt is a 78 y/o M s/p R TSA reverse POD 1. pt has R shoulder precautions and is NWB on RUE. pt requiring min to mod A with mobility using SPC and max cues for safety and precautions. pt is very impulsive. pt lives with spouse but spouse will not be able to provide pt assitance. pt will require SNF rehab to improve overall strength and mobility independence. will assess progress. Goals Transfer Goal Contact Guard Assistance,Cane Gait Goal Contact Guard Assistance,Cane Gait Distance 50 Other Goals improve transfers and ambulation using SPC ~ 150 ft mod I Days to Meet Goals 10 Frequency of Treatment Frequency Of Treatment Twice a Day Treatment Plan Physical Therapy Treatment Plan Bed Mobility Training,Transfer Training,Gait Training, Therapeutic Exercise,Balance Retraining,Post Op Education, Discharge Planning,Hot or Cold Pack,Neuromuscular Re-ed, Coordination Retraining,Manual Therapy Precautions Shoulder Precautions Sling,PROM,Internal Rotation to Body,No External Rotation, No Abduction,Forward Flexion to 90 degrees,Pendulums Weight Bearing Status Weight Bearing Status Non-Weight Bearing Allowed Weight Bearing Amount (enter % RUE NWB or #) (%) Recommendations To Nursing Amount of Assist Needed 1 Person Assist Discharge Recommendations PT Discharge Recommendations SNF Rehab Transportation Needs at Discharge Wheelchair/Cabulance
--- NOTE | 2023-12-31 13:54 | OT.IP.EVAL ---
Current Diagnoses Pressure ulcer of sacral region, unspecified stage (12/30/23) Other specific arthropathies, not elsewhere classified, right shoulder (12/30/23) Presence of unspecified artificial shoulder joint (12/30/23) Surgery Performed Operation Date: 12/30/23 15:15 Actual Procedures p Total Shoulder Arthroplasty - Reverse with biceps tenodesis(Right) - Miguelangel Webb MD Past Medical History (Last Updated 12/31/23 @ 07:29 by Lin Wayne PA-C) Accident Achalasia Anginal pain Aspiration, chronic pulmonary Asthma Atrial fibrillation Cervical spinal stenosis Chronic obstructive pulmonary disease (10/23/16) COPD (chronic obstructive pulmonary disease) Coronary artery disease History of aortic dissection (~08/2007) Hypertension Ischemic cardiomyopathy Narcotic dependence Neck pain, chronic Sacral decubitus ulcer Ventricular bigeminy Wound of left buttock (08/2023) Surgical History (Last Updated 12/20/23 @ 12:58 by Fern Rosales RN) H/O arthroscopic knee surgery (11/15/17) History of ankle surgery (10/2020) History of arthroplasty of left knee (05/25/19) History of arthroplasty of right knee History of bilateral total hip arthroplasty History of cardiac cath (~03/2014) History of esophageal surgery History of incision and drainage (~2016) History of lumbar spinal fusion (02/04/22) History of prior ablation treatment (~03/2017) History of surgery History of total replacement of left shoulder joint (05/25/19) Hx of cholecystectomy Hx of hernia repair Hx of sinus surgery S/P CABG x 3 (~08/2007) S/P cervical spinal fusion S/P lumbar fusion Occupational Therapy Inpatient Evaluation/Re-Eval M1 PT/OT-IP Prior Functional Status Start: 12/31/23 13:39 Freq: NEEDED Status: Active Protocol: Document 12/31/23 14:02 [facility] (Rec: 12/31/23 14:24 [facility] [id number]) Medical Review Prior Functional Status Medical History Reviewed Yes Communication able to make needs known Mobility and Gait pt stated that he was modified independent with all mobilities and ambulation using a SPC Activities of Daily Living and IADL's Pt states has pain during ADL and IADL needs. Social History Household Members spouse Living Arrangements House Number of Floors (Floors) Two Floors Number of Stairs To Enter/Railing? ramp to enter; pt stays on main level of the house Home Environment Standard Height Toilet,Walk in Shower,Built-In Shower Seat Home Equipment Straight Cane,Hand Held Shower ,Grab Bars In Shower Additional Social History Comment stated that spouse will not be able to assist him pt stated that he sleeps on his recliner M2 OT-IP Current Condition Start: 12/31/23 14:02 Freq: Status: Active Protocol: Document 12/31/23 14:02 [facility] (Rec: 12/31/23 14:24 [facility] [id number]) Occupational Therapy Current Condition Current Condition Evaluation Date 12/31/23 Treatment Diagnosis S/P R TSA Diagnosis Onset Date 12/30/23 Post Operative Precautions Shoulder Precautions Sling Other Precautions NO ER past neutral Weight Bearing Status Weight Bearing Status Non-Weight Bearing M3 OT- IP Subjective and Pain Start: 12/31/23 14:02 Freq: Status: Active Protocol: Document 12/31/23 14:02 [facility] (Rec: 12/31/23 14:24 [facility] [id number]) OT- Subjective Occupational Therapy Visit Type Type Initial Evaluation Visit Start Time 13:25 Visit Stop Time 13:54 Occupational Therapy Visit Comments Patient Comments Pt wanting to use the BSC. Patient/Caregiver Goals To get better. OT Pain Assessment Pain When Pain Assessed At Rest Pain Present Pain Present Pain Reported Location Left Buttock Intensity 8 Scale Used Numeric (0 - 10) M4 OT- IP ADL's Start: 12/31/23 14:02 Freq: Status: Active Protocol: Document 12/31/23 14:02 [facility] (Rec: 12/31/23 14:24 [facility] [id number]) OT [id number] Comments OT Self-Feeding Comments Not at meal time. OT ADL-Grooming General Evaluation Grooming Ability Standby Assistance Comments OT Grooming Comments Able to do seated. OT ADL-Oral Care General Eval Oral Care Ability Standby Assistance Comments Oral Care Comments Able to do while seated. OT ADL-Dressing General Eval Upper Body Dressing Ability Total Assistance Lower Body Dressing Ability Maximum Assistance Areas Needing Assistance Underpants/Brief,Socks, Orthosis/Prosthesis Comments OT Dressing Comments Pt needing assist to readjust the straps. OT ADL-Toileting General Evaluation Toileting Ability Maximum Assistance Areas Needing Assistance Manage Clothing M5 OT- IP IADL's Start: 12/31/23 14:02 Freq: Status: Active Protocol: Document 12/31/23 14:02 [facility] (Rec: 12/31/23 14:24 [facility] [id number]) OT-Instrumental Activities of Daily Living Home Safety Awareness Home Safety Comments Pt very insistent on his care. M6 OT- IP Functional Cognition Start: 12/31/23 14:02 Freq: Status: Active Protocol: Document 12/31/23 14:02 [facility] (Rec: 12/31/23 14:24 [facility] [id number]) Cognitive Factors Limiting Selfcare Function Cognitive Ability Level of Alertness Alert Patient Orientation Name,Place,Situation Attention Span Ability Capable of Focused Attention, Capable of Sustained Attention Ability to Follow Commands Able to Follow One Step Commands with Increased Time, Able to Follow One Step Commands with Repetition Memory Description Short Term Impaired Safety Awareness Decreased Recall of Precautions,Decreased Ability to Apply Precautions, Underestimates Need for Assistance Cognitive Comments Cognitive Assessment Comments Pt is very insistent on his care, impulsive and poor safety awareness. Per nursing , pt pulled off his sling earlier. OT- Vision and Hearing OT- Hearing Assessment OT- Hearing Assessment Hearing Impaired M7 OT- IP Mobility and Balance Start: 12/31/23 14:02 Freq: Status: Active Protocol: Document 12/31/23 14:02 [facility] (Rec: 12/31/23 14:24 [facility] [id number]) OT-Transfer Assessment Sit to and From Stand Sit to and from Stand Minimal Assistance,Moderate Assistance Transfers Transfer Ability Moderate Assistance Technique Transfer Destination Bedside Commode,Chair Comments Mobility Comments MIN/MODA to stand and transfer with SPC to the commode. Pt very unsteady on his feet. OT- Balance Assessment Sitting Balance and Reactions Static Sitting Balance Ability Good Dynamic Sitting Balance Ability Fair Standing Balance and Reactions Static Standing Balance Ability Poor Dynamic Standing Balance Ability Poor M8 OT- IP Objective Assessments Start: 12/31/23 14:02 Freq: Status: Active Protocol: Document 12/31/23 14:02 [facility] (Rec: 12/31/23 14:24 [facility] [id number]) OT Gross Range of Motion Upper Extremity Range of Motion Assessment Bilaterally Impaired OT Strength Upper Extremity Strength Assessment Right Impaired OT- Coordination Assessment Comments Coordination Comments Pt able to open and close his right hand. M9 OT- IP Assessment and Plan Start: 12/31/23 14:02 Freq: Status: Active Protocol: Document 12/31/23 14:02 [facility] (Rec: 12/31/23 14:24 [facility] [id number]) OT Summary Assessment and Plan Potential Rehabilitation Potential Fair Analytic Complexity at Evaluation Low Summary OT Impairments Pain,Range of Motion,Strength, Balance,Functional Cognition, Functional Mobility,Dressing, Toileting,Bathing,Toilet Transfers,Shower Transfers, Activity Tolerance Progress Towards Goals Slow Progress due to Pain,Slow Progress due to Medical Issues,Slow Progress due to Cognition Assessment Summary Pt low complexity and main barriers are pain, decreased safety awareness- partially due to pt is very hard of hearing, and insistent on his care at times. Pt looking to go to skilled rehab when medically stable. Goals Grooming Goal Standby Assistance Dressing Goal Minimal Assistance Toileting Goal Minimal Assistance Bathing Goal Minimal Assistance Toilet Transfer Goal Standby Assistance Shower Transfer Goal Contact Guard Assistance Days to Meet Goals 15 Frequency of Treatment Frequency Of Treatment Once a Day Treatment Plan OT Treatment Plan ADL Training,Functional Mobility,Patient/Family Education,Discharge Planning Discharge Recommendations OT Discharge Recommendations SNF Rehab Transportation Needs at Discharge Wheelchair/Cabulance
--- NOTE | 2023-12-31 14:04 | PC.NURSE ---
Addendum entered by Susie Fletcher R.N. 12/31/23 16:40: Patient refuses to lay down in bed and off load his buttocks wound. We have mentioned this several times and he will not comply with staff. He is asking for ativan, but he has recently fallen asleep in his chair. PA informed of this, awaiting reply. Addendum entered by Susie Fletcher R.N. 12/31/23 15:56: Dressing will be changed tonight, he had a dressing change earlier this morning with a/d ointment and will start new dressing orders this evening. Addendum entered by Susie Fletcher R.N. 12/31/23 14:55: We have orders for skin-prep to periwound, cleanse area with normal saline, and apply gentamicin and lidocaine with bordered foam cover. There is a wound consult order in with our wound care center here as well. Original Note: Patient does not want to help himself with any of his tasks or follow any direction that is given to him. He had his R. arm sling on and was saying that it was bleeding under his arm. Arm checked and no blood visible. Physical therapy went into patients room and helped him for 15 minutes, adjusting his sling and patient took it off. He was yelling and being non compliant and he has urinated all over the floor x2. He can use the urinal and he stands with one person assist. Staff has been helping patient all morning and day with his needs, he yells out randomly and then asks for things right after staff leaves the room for something else. We have explained to him, to let us know everything he wants ahead of time and we get it for him. He has no boundaries and is demanding. Patient wants to argue about everything, this RN simply told patient that we are not going to argue with him and left to let patient cool down. He has a wound to his buttocks, which a&d ointment has been applied to an allevyn dressing, and his soft under wear on. He is unsteady on his feet, and unwilling to listen to any kind of direction or help. Would rather do things his own way. He is sitting up in his chair now, he does have a waffle cushion under his bottom and his content for the moment. He has a good appetite at meals and his aquacel dressing is cdi to r.shoulder and his sling is on partially. Harder part has been taken off. Patient will start gentamycin ointment and lidocaine tonight for his open wound to his bottom.
--- NOTE | 2023-12-31 14:59 | PT.IPTN ---
Current Diagnoses Pressure ulcer of sacral region, unspecified stage (12/30/23) Other specific arthropathies, not elsewhere classified, right shoulder (12/30/23) Presence of unspecified artificial shoulder joint (12/30/23) Surgery Performed Operation Date: 12/30/23 15:15 Actual Procedures p Total Shoulder Arthroplasty - Reverse with biceps tenodesis(Right) - Miguelangel Webb MD Physical Therapy Treatment Note M2 PT-IP Current Condition Start: 12/31/23 13:39 Freq: NEEDED Status: Active Protocol: Document 12/31/23 10:55 AB (Rec: 12/31/23 13:51 AB [id number]) Physical Therapy Current Condition Current Condition Evaluation Date 12/31/23 Treatment Diagnosis s/p TSA reverse; difficulty in walking M3 PT-IP Subjective Start: 12/31/23 13:39 Freq: NEEDED Status: Active Protocol: Document 12/31/23 15:08 TS (Rec: 12/31/23 15:16 TS [id number]) Subjective Physical Therapy Visit Type Type Treatment Note Visit Start Time 14:59 Visit Stop Time 15:08 Number of SMALL ENGINE TECHNICIAN Visits 1 Physical Therapy Visit Comments Patient Comments Pt found resting in chair. Pt reports he just got comfortable and does not want to work with physical therapy at this time. At times he sobs due to his pain. Therapy Pain Assessment Pain When Pain Assessed At Rest Pain Present Pain Present Pain Reported M4 PT-IP Mobility and Gait Start: 12/31/23 13:39 Freq: NEEDED Status: Active Protocol: Document 12/31/23 15:08 TS (Rec: 12/31/23 15:16 TS [id number]) PT-Balance Assessment Sitting Balance and Reactions Static Sitting Balance Ability Good Dynamic Sitting Balance Ability Fair M5 PT-IP Objective Assessments Start: 12/31/23 13:39 Freq: NEEDED Status: Active Protocol: Document 12/31/23 10:55 AB (Rec: 12/31/23 13:51 AB [id number]) Orientation Orientation/Cognition Level of Alertness Alert Orientation Place,Situation Language Function Ability Hard of Hearing Safety Awareness Decreased Safety Awareness Memory Description Short Term Impaired Gross Range of Motion Lower Extremity ROM Assessment Within Functional Limits Strength Upper Extremity Strength Assessment Within Functional Limits Muscle Tone Muscle Tone WNL Yes M6 PT-IP Treatment Start: 12/31/23 13:39 Freq: NEEDED Status: Active Protocol: Document 12/31/23 15:08 TS (Rec: 12/31/23 15:16 TS [id number]) Physical Therapy Treatment Education Education Provided Precautions,Weight Bearing Status,Post-Op Packet,Safety Other Treatments Other Treatment Performed Pt was educated on his precautions and is NWB of RUE. Pt has some carryover of his precautions. M7 PT-IP Assessment and Plan Start: 12/31/23 13:39 Freq: NEEDED Status: Active Protocol: Document 12/31/23 15:08 TS (Rec: 12/31/23 15:16 TS [id number]) PT Summary Assessment and Plan Potential Rehabilitation Potential Fair Summary Impairments Pain,ROM,Strength,Balance, Coordination,Sensation,Tone, Cognition,Bed Mobility, Transfers,Gait,Activity Tolerance Progress Towards Goals Slow Progress due to Pain Assessment Summary Karthikeyan is making slow progress with his mobility. He refused to mobilize this session with PT. Pt reports he just got comfortable with his sling and is having too much pain. Pt sobbed because of his pain. He was educated on his shoulder precautions and NWB status. Pt demonstrated understanding of his precautions. PT informed pt he will be seen tomorrow. PT is recommending SNF to improve activity tolerance and functional mobility. Goals Transfer Goal Contact Guard Assistance,Cane Gait Goal Contact Guard Assistance,Cane Gait Distance 50 Other Goals improve transfers and ambulation using SPC ~ 150 ft mod I Days to Meet Goals 10 Frequency of Treatment Frequency Of Treatment Twice a Day Treatment Plan Physical Therapy Treatment Plan Bed Mobility Training,Transfer Training,Gait Training, Therapeutic Exercise,Balance Retraining,Post Op Education, Discharge Planning,Hot or Cold Pack,Neuromuscular Re-ed, Coordination Retraining,Manual Therapy Precautions Shoulder Precautions Sling,PROM,Internal Rotation to Body,No External Rotation, No Abduction,Forward Flexion to 90 degrees,Pendulums Weight Bearing Status Weight Bearing Status Non-Weight Bearing Allowed Weight Bearing Amount (enter % RUE NWB or #) (%) Recommendations To Nursing Amount of Assist Needed 1 Person Assist Discharge Recommendations PT Discharge Recommendations SNF Rehab Transportation Needs at Discharge Wheelchair/Cabulance
[2023-12-31] MEDS: AMLODIPINE 5 MG TABLET PO (17:31)
[2023-12-31] MEDS: TRAZODONE 50 MG TABLET 300 MG PO (20:46)
[2023-12-31] MEDS: lisinopriL 10 MG TABLET 40 MG PO (20:47)
[2023-12-31] MEDS: METOPROLOL ER 50 MG TABLET 100 MG PO (20:47)
[2023-12-31] MEDS: SENNOSIDES 8.6 MG TABLET 17.2 MG PO (20:47)
[2024-01-01] VITALS (8 sets, daily range): BP systolic 107–144; BP diastolic 41–65; PULSE 68–85; RESP 14–18; TEMP 36.1–36.3; O2SAT 95–96
[2024-01-01] MEDS: ALBUTEROL 2.5 MG/3 ML NEB (ADULT) INH ×3 (02:22→13:59)
--- NOTE | 2024-01-01 02:48 | PC.NURSE ---
Patient up numerous times during night. Back and fourth to the chair and bed. Patient accidentally removed IVs, has not IV meds, so new iv not placed. Patient has been calm but not cooperative. Has not slept much even after sleeping pills and pain pills given.
[2024-01-01] MEDS: OXYCODONE IR 5 MG TABLET PO ×2 (05:56→09:03)
[2024-01-01] MEDS: IBUPROFEN 600 MG TABLET PO ×4 (05:57→17:50)
[2024-01-01] MEDS: ACETAMINOPHEN 325 MG TABLET 650 MG PO ×4 (05:58→17:50)
[2024-01-01] MEDS: DOCUSATE 100 MG CAPSULE PO ×2 (09:02→20:40)
[2024-01-01] MEDS: AMLODIPINE 5 MG TABLET 2.5 MG PO (09:03)
[2024-01-01] MEDS: MULTIVITAMIN 1 TABLET 1 TAB PO (09:03)
[2024-01-01] MEDS: LORATADINE 10 MG TABLET PO (09:04)
[2024-01-01] MEDS: PANTOPRAZOLE DR 20 MG TABLET PO ×2 (09:04→20:40)
[2024-01-01] MEDS: ASPIRIN EC 81 MG TABLET PO ×2 (09:04→20:41)
[2024-01-01] MEDS: MONTELUKAST 10 MG TABLET PO (09:04)
[2024-01-01] MEDS: polyethylene glycoL 3350 17 GM POWD.PACK PO (09:04)
[2024-01-01] MEDS: FUROSEMIDE 40 MG TABLET PO (09:04)
[2024-01-01] MEDS: LIDOCAINE 5% OINT 35 GM 1 APPLIC TOP (09:05)
--- NOTE | 2024-01-01 09:21 | P.PN_ITS ---
Subjective Subjective Date Patient Seen: 01/01/24 Time Patient Seen: 09:21 Interval history: Patient states he is having severe pain. No fever chills. No nausea or vomiting. Patient has been receiving wound care for pressure ulcer on his bottom. Exam Vital Signs (past 8 hours): - 01/01/24 05:17 01/01/24 08:15 01/01/24 08:50 Temperature 97.4 F L 97 F L Pulse Rate 74 68 Respiratory Rate 14 18 Blood Pressure 144/65 H 112/41 L Pulse Oximetry 96 95 Oxygen Delivery Method Room Air Oxygen Flow Rate 0 Fraction of Inspired Oxygen 21 SaO2/FiO2 Ratio 447 Oxygen Delivery Method Room Air Oxygen Flow Rate 0 Narrative Exam Narrative: 78-year-old male sitting comfortably in bedside chair in no apparent distress. Const General: cooperative, healthy appearing and comfortable Nutritional Appearance: average body habitus Orientation: alert Resp Effort & Inspection: normal respiratory effort and able to speak in complete sentences Objective Labs 12/31/23 05:10 [facility] Medical History (Updated 12/31/23 @ 07:29 by Lin Wayne PA-C) Sacral decubitus ulcer Aspiration, chronic pulmonary Wound of left buttock (08/2023) Accident Narcotic dependence Ventricular bigeminy Anginal pain Asthma Ischemic cardiomyopathy History of aortic dissection (~08/2007) COPD (chronic obstructive pulmonary disease) Chronic obstructive pulmonary disease (10/23/16) Hypertension Atrial fibrillation Coronary artery disease Achalasia Cervical spinal stenosis Neck pain, chronic Surgical History (Updated 12/31/23 @ 07:29 by Lin Wayne PA-C) History of total replacement of left shoulder joint (05/25/19) History of lumbar spinal fusion (02/04/22) History of ankle surgery (10/2020) History of arthroplasty of left knee (05/25/19) History of incision and drainage (~2016) S/P cervical spinal fusion History of arthroplasty of right knee History of esophageal surgery Hx of hernia repair Hx of cholecystectomy Hx of sinus surgery History of surgery History of bilateral total hip arthroplasty S/P lumbar fusion History of cardiac cath (~03/2014) S/P CABG x 3 (~08/2007) History of prior ablation treatment (~03/2017) H/O arthroscopic knee surgery (11/15/17) Family History Mother Stroke Father Hypertension Social History household members: spouse Smoking Status: Former smoker alcohol intake: current substance use type: does not use Assessment & Plan Post-op Postoperative Procedures: Procedures Operation Date: 12/30/23 15:15 Actual Procedure Side Surgeon p Total Shoulder Arthroplasty - Reverse with biceps tenodesis Right Miguelangel Webb MD Postoperative day: 2 Postoperative status: doing well and marginal pain control Postoperative status narrative: Stage III, full thickness, ulcer of the left intergluteal cleft. Last peridebridement measurements: 4.5 x 3.4 x 0.2 cm (LxWxD) Pt applies topical gentamicin and topical 5% lidocaine daily. Postoperative plan narrative: Continue to work on pain control. Patient is wheelchair dependent and does not have support at home. Patient will need [facility] facility placement. Wound care for sacral decubitus ulcer Aspirin 81 mg b.i.d. for DVT prophylaxis PT/OT Sling to remain on for 6 weeks. No external rotation past neutral for 6 weeks. Keep dressing clean and dry. Sling may be removed for hygiene. Likely discharge to [facility] facility in a day or 2. Quality VTE Deep Vein Thrombosis/Pulmonary Embolism Present on Admission: No
--- NOTE | 2024-01-01 09:33 | CM.DANOTE ---
Addendum entered and electronically signed by CELESTINA Vaughn 01/01/24 10:38: PASSAR is completed and is with the facesheet. Original Note: Initial DCP Assessment Visit Note Reviewed EMR and team rounds for status updates. Met with pt at bedside to introduce self and role. Pt found to be sitting upright in the recliner, expressing fears/concerns that he cannot discharge home, and thought he had already arranged for SNF rehab prior to having surgery, however that was not the case. DIRECTOR PARK explained that we would now need to send referrals to the SNF's that take his [facility] insurance, and reassured him that we would work on this for him. He was quite emotionally labile, was tearful, angry, and expressed feeling that his did not treat him very well. Pt uses a cane at baseline, is unsteady will need assistance with ADL's postoperatively. He lives modified independently with his in their own home in [place]. Referral sent to [facility] preference, however they won't have any openings until mid-week next week. Referral sent to [facility], they are reviewing. Payor: [facility] Adv Attending: Dr. Webb Pt is a 78 year-old M post-op day 2 following his R-shoulder arthroplasty surgery. He has limited mobility at baseline, uses a cane, but also has a wheelchair, per Dr. Webb's note. He also has a pressure ulcer on his right buttock and is treated for this weekly at the [facility]. DCP will continue to follow and assist with SNF rehab placement and transition of discharge. Discharge Planning/Care Management CM Discharge Assessment Start: 01/01/24 09:27 Freq: Status: Active Protocol: Document 01/01/24 09:28 DPL (Rec: 01/01/24 09:33 DPL [id number]) Discharge Planning Assessment Assigned Identification And Records Commander CELESTINA Carr Advance Directives? No Advance Directives on File No History Provided By Patient,Medical Record Has Patient been admitted in last 30 No days? Prior Living Arrangements House Household Members spouse Type of transporation used prior to Relies on Others admit Independent with ADL's No: modified independent, is wheelchair bound Is patient alert and oriented? Yes Needs Assistance With Home Chores / Shopping Caregiver for Another No Comment Pt states that he has DME in the home from the last time he had knee surgery, and then last year ankle surgery Patient/Family Preference [facility] Facility Comment Hx of ETOH w/d vs sundowning behavior vs reaction to Morphine/Dilaudid (?) It is suspected that pt does not accurately disclose the quantity of ETOH use at home Discharge Plan Prison Facility Transportation Arrangement facility or spouce will transport patient Referrals Initiated Prison If patient plan is SNF: Has PASSR been Yes completed? Inpatient Status as of 12/30/23 Medicare Choice List Provided Yes Medicare choice list reviewed on patient electronic tablet with SNF/HH Preference [facility] Has Agency SNF been contacted Yes Review Status In Process Please Provide Date Initial DC 01/01/24 Assessment Was Performed Pre-Anesthesia Assessment Start: 12/20/23 12:39 Freq: Status: Active Protocol: Document 12/20/23 12:39 CAB (Rec: 12/20/23 13:45 CAB [id number]) Pre-Anesthesia Assessment Preferred Name Ganesh Patient Information Reviewed Via Phone Assessment Assessment Completed With Patient Primary Care Provider Romi Mcneill Comment Clearance and letter for DC to SNF scanned and in surgery folder Seen Specialist in Last 12 Months Yes Specialist Seen Metalizing Machine Operator Automatic,Emergency, Orthopedist,Assessment Director Primary Language Malagasy Preferred Language Malagasy Assorter Required No Height 185.42 cm Weight 88.451 kg Body Mass Index (BMI) 25.7 Hearing Ability Normal Visual Assist Glasses Dentition Type Teeth, Natural Present Other Aids No Hx Anesthesia Reactions Yes: Awoke during Patella surgery 1971 Hx Family Anesthesia Reaction No Hx Malignant Hyperthermia No Hx Blood Transfusions No: Pt unsure Hx Blood Transfusion Reaction No Anesthesia Review Requested No Pododermatologist No alcohol intake current alcohol intake frequency 0-2 drinks per day Smoking Status Former smoker Tobacco type cigarettes how long ago did patient quit smoking Quit 2017 Substance Use Type does not use Pain Present Pain Reported Musculoskeletal Symptoms Abnormal Gait,Back Pain, Difficulty Walking,Joint Pain, Limited Range of Motion History of Falling (Recent or History of Yes ) Patient is completely paralyzed or No completely immobile Prosthesis or Orthotic Device Cane Mental Status Oriented to own ability Is patient on oxygen? No Does patient have PALOMINO/SOB Yes Hx Sleep Apnea No CPAP/BIPAP use not prescribed Currently Taking a Beta Bhaskar Yes: Metoprolol Can You Climb a Flight of Stairs Without No SOB Hx Chest Pain Yes Hx SOB Yes Hx Syncope or Dizziness No Anti-Coagulant Therapy No Has a Metalizing Machine Operator Automatic Yes Metalizing Machine Operator Automatic name Dr. Jacobs Cardiac Testing Yes: Nuc scan @ [facility] 11/29/23 Hx Pacemaker/ICD No Pacemaker Rep Required? 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 Yes: x2 booster Received all doses? Yes Marital Status Lives With spouse Current Living Arrangements House Number of Floors (Floors) Two Floors Support System Spouse Does the Patient Have Assistance After Yes Surgery Patient Discharge Plan Description Prison Facility/Rehab Comment PCP recommending pt DC to SNF due to medical history Feels Safe in Current Environment Yes Been Physically Hurt or Threatened By a No Person in Current Environment Do you have thoughts of harming yourself None or others? Are you currently considering suicide? No Do you have a plan to hurt yourself or No Plan others? Do You Have Any Spiritual Beliefs That No May Affect Your HC Choices? Do You Have Any Cultural Practices That No May Affect Your HC Choices? Comment Confucianism Who Can We Speak to About Patient's Care Family, friends Identifying Code for Release of Patient Declines to issue Information Health Care Proxy/Next of Kin Cristel () Health Care Proxy Emergency Contact Name Cristel () Adria( Brother) Emergency Contact Phone Number Cristel: [phone] Adria [phone] Advance Directives? No Advance Directives on File No Power of Telecom Assistant No PAC Instructions Durable medical equipment, Medications to take/avoid, Nasal antibiotic,No ETOH/ petroleum product on skin DOS, NPO,Pre-surgical wash,Sensory aids,Sturdy shoes/comfortable clothes,Do not bring valuables and remove jewelry Document 12/20/23 14:44 CAB (Rec: 12/20/23 14:48 CAB [id number]) Pre-Anesthesia Assessment Preferred Name Ganesh Patient Information Reviewed Via Phone Assessment Assessment Completed With Patient Primary Care Provider Romi Mcneill Comment Clearance and letter for DC to SNF scanned and in surgery folder Seen Specialist in Last 12 Months Yes Specialist Seen Metalizing Machine Operator Automatic,Emergency, Orthopedist,Assessment Director Comment Pulmonary visit 11/15/23 scanned and in surgery folder Primary Language Malagasy Preferred Language Malagasy Assorter Required No Height 185.42 cm Weight 88.451 kg Body Mass Index (BMI) 25.7 Hearing Ability Normal Visual Assist Glasses Dentition Type Teeth, Natural Present Other Aids No Hx Anesthesia Reactions Yes: Awoke during Patella surgery 1971 Hx Family Anesthesia Reaction No Hx Malignant Hyperthermia No Hx Blood Transfusions No: Pt unsure Hx Blood Transfusion Reaction No Anesthesia Review Requested No Pododermatologist No alcohol intake current alcohol intake frequency 0-2 drinks per day Smoking Status Former smoker Tobacco type cigarettes how long ago did patient quit smoking Quit 2017 Substance Use Type does not use Pain Present Pain Reported Musculoskeletal Symptoms Abnormal Gait,Back Pain, Difficulty Walking,Joint Pain, Limited Range of Motion History of Falling (Recent or History of Yes ) Patient is completely paralyzed or No completely immobile Prosthesis or Orthotic Device Cane Mental Status Oriented to own ability Is patient on oxygen? No Does patient have PALOMINO/SOB Yes Hx Sleep Apnea No CPAP/BIPAP use not prescribed Currently Taking a Beta Bhaskar Yes: Metoprolol Can You Climb a Flight of Stairs Without No SOB Hx Chest Pain Yes Hx SOB Yes Hx Syncope or Dizziness No Anti-Coagulant Therapy No Has a Metalizing Machine Operator Automatic Yes: Last visit 08/11/23 Metalizing Machine Operator Automatic name Dr. Jacobs Cardiac Testing Yes: Nuc scan @ [facility] 11/29/23 Hx Pacemaker/ICD No Pacemaker Rep Required? 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 Yes: x2 booster Received all doses? Yes Marital Status Lives With spouse Current Living Arrangements House Number of Floors (Floors) Two Floors Support System Spouse Does the Patient Have Assistance After Yes Surgery Patient Discharge Plan Description Prison Facility/Rehab Comment PCP recommending pt DC to SNF due to medical history Feels Safe in Current Environment Yes Been Physically Hurt or Threatened By a No Person in Current Environment Do you have thoughts of harming yourself None or others? Are you currently considering suicide? No Do you have a plan to hurt yourself or No Plan others? Do You Have Any Spiritual Beliefs That No May Affect Your HC Choices? Do You Have Any Cultural Practices That No May Affect Your HC Choices? Comment Confucianism Who Can We Speak to About Patient's Care Family, friends Identifying Code for Release of Patient Declines to issue Information Health Care Proxy/Next of Kin Cristel () Health Care Proxy Emergency Contact Name Cristel () Adria( Brother) Emergency Contact Phone Number Cristel: [phone] Adria [phone] Advance Directives? No Advance Directives on File No Power of Telecom Assistant No PAC Instructions Durable medical equipment, Medications to take/avoid, Nasal antibiotic,No ETOH/ petroleum product on skin DOS, NPO,Pre-surgical wash,Sensory aids,Sturdy shoes/comfortable clothes,Do not bring valuables and remove jewelry
--- NOTE | 2024-01-01 10:08 | PT.IPTN ---
Current Diagnoses Pressure ulcer of sacral region, unspecified stage (12/30/23) Other specific arthropathies, not elsewhere classified, right shoulder (12/30/23) Presence of unspecified artificial shoulder joint (12/30/23) Surgery Performed Operation Date: 12/30/23 15:15 Actual Procedures p Total Shoulder Arthroplasty - Reverse with biceps tenodesis(Right) - Miguelangel Webb MD Physical Therapy Treatment Note M2 PT-IP Current Condition Start: 12/31/23 13:39 Freq: NEEDED Status: Active Protocol: Document 12/31/23 10:55 AB (Rec: 12/31/23 13:51 AB [id number]) Physical Therapy Current Condition Current Condition Evaluation Date 12/31/23 Treatment Diagnosis s/p TSA reverse; difficulty in walking M3 PT-IP Subjective Start: 12/31/23 13:39 Freq: NEEDED Status: Active Protocol: Document 01/01/24 10:41 TS (Rec: 01/01/24 11:01 TS [id number]) Subjective Physical Therapy Visit Type Type Treatment Note Visit Start Time 10:08 Visit Stop Time 10:32 Number of MANAGER OF CUSTOMER BILLING Visits 2 Physical Therapy Visit Comments Patient Comments Pt found resting in chair, c/o sling being too tight and would like new ice pack. Pt was agreeable to PT. Therapy Pain Assessment Pain When Pain Assessed At Rest Pain Present Pain Present Pain Reported M4 PT-IP Mobility and Gait Start: 12/31/23 13:39 Freq: NEEDED Status: Active Protocol: Document 01/01/24 10:41 TS (Rec: 01/01/24 11:01 TS [id number]) PT-Transfer Assessment Sit to and From Stand Sit to and from Stand Minimal Assistance,1 Person Assistance Equipment Transfer Assistive Device Gait Belt,Straight Cane Orthotic/Prosthetic Devices or Brace: Yes Transfers Transfer Destination Chair,Bedside Commode Transfer Technique Squat Pivot Transfer Ability Level of Assist Minimal Assistance,1 Person Assistance Comments Mobility Comments Pt was educated in shoulder precautions, pt recalls he can bend his elow and wrist. STS from chair with SPC Thi, pt cued to push from chair. Pt requested to use toilet. Pt took a couple steps and felt unsteady and could not get to toilet. Pt performed squat pivot Thi to commode from chair. After use of commode pt performed squat pivot back to chair Thi. Pt was left in chair with new ice pack, he requested to speak to SW about his d/c plan. PT-Balance Assessment Sitting Balance and Reactions Static Sitting Balance Ability Good Dynamic Sitting Balance Ability Fair Standing Balance and Reactions Static Standing Balance Ability Poor Dynamic Standing Balance Ability Poor Device Used SPC M5 PT-IP Objective Assessments Start: 12/31/23 13:39 Freq: NEEDED Status: Active Protocol: Document 12/31/23 10:55 AB (Rec: 12/31/23 13:51 AB [id number]) Orientation Orientation/Cognition Level of Alertness Alert Orientation Place,Situation Language Function Ability Hard of Hearing Safety Awareness Decreased Safety Awareness Memory Description Short Term Impaired Gross Range of Motion Lower Extremity ROM Assessment Within Functional Limits Strength Upper Extremity Strength Assessment Within Functional Limits Muscle Tone Muscle Tone WNL Yes M6 PT-IP Treatment Start: 12/31/23 13:39 Freq: NEEDED Status: Active Protocol: Document 01/01/24 10:41 TS (Rec: 01/01/24 11:01 TS [id number]) Physical Therapy Treatment Education Education Provided Precautions,Weight Bearing Status,Post-Op Packet,Safety M7 PT-IP Assessment and Plan Start: 12/31/23 13:39 Freq: NEEDED Status: Active Protocol: Document 01/01/24 10:41 TS (Rec: 01/01/24 11:01 TS [id number]) PT Summary Assessment and Plan Potential Rehabilitation Potential Fair Summary Impairments Pain,ROM,Strength,Balance, Coordination,Sensation,Tone, Cognition,Bed Mobility, Transfers,Gait,Activity Tolerance Progress Towards Goals Slow Progress due to Pain Assessment Summary Karthikeyan continues to make slow progress with his mobility. He is Thi for STS with use of SPC. He performed squat pivot to commode and back to chair Thi, he has some difficulty follwoing directions for proper sequencing. He did not progress gait this morning because of unsteadiness. PT continues to recommend SNF at this time. Goals Transfer Goal Contact Guard Assistance,Cane Gait Goal Contact Guard Assistance,Cane Gait Distance 50 Other Goals improve transfers and ambulation using SPC ~ 150 ft mod I Days to Meet Goals 10 Frequency of Treatment Frequency Of Treatment Twice a Day Treatment Plan Physical Therapy Treatment Plan Bed Mobility Training,Transfer Training,Gait Training, Therapeutic Exercise,Balance Retraining,Post Op Education, Discharge Planning,Hot or Cold Pack,Neuromuscular Re-ed, Coordination Retraining,Manual Therapy Precautions Shoulder Precautions Sling,PROM,Internal Rotation to Body,No External Rotation, No Abduction,Forward Flexion to 90 degrees,Pendulums Weight Bearing Status Weight Bearing Status Non-Weight Bearing Allowed Weight Bearing Amount (enter % RUE NWB or #) (%) Recommendations To Nursing Amount of Assist Needed 1 Person Assist Discharge Recommendations PT Discharge Recommendations SNF Rehab Transportation Needs at Discharge Wheelchair/Cabulance
[2024-01-01] MEDS: OXYCODONE IR 5 MG TABLET 10 MG PO ×3 (12:38→20:39)
--- NOTE | 2024-01-01 13:00 | PT.IPTN ---
Current Diagnoses Pressure ulcer of sacral region, unspecified stage (12/30/23) Other specific arthropathies, not elsewhere classified, right shoulder (12/30/23) Presence of unspecified artificial shoulder joint (12/30/23) Surgery Performed Operation Date: 12/30/23 15:15 Actual Procedures p Total Shoulder Arthroplasty - Reverse with biceps tenodesis(Right) - Miguelangel Webb MD Physical Therapy Treatment Note M2 PT-IP Current Condition Start: 12/31/23 13:39 Freq: NEEDED Status: Active Protocol: Document 12/31/23 10:55 AB (Rec: 12/31/23 13:51 AB [id number]) Physical Therapy Current Condition Current Condition Evaluation Date 12/31/23 Treatment Diagnosis s/p TSA reverse; difficulty in walking M3 PT-IP Subjective Start: 12/31/23 13:39 Freq: NEEDED Status: Active Protocol: Document 01/01/24 13:37 TS (Rec: 01/01/24 13:51 TS [id number]) Subjective Physical Therapy Visit Type Type Treatment Note Visit Start Time 13:00 Visit Stop Time 13:24 Number of PROCESS SAFETY MANAGEMENT ENGINEER Visits 3 Physical Therapy Visit Comments Patient Comments Pt reports having suicidal thoughts in the past and is currently having some, RN was notified. He discussed his PTSD and issues he is having at home with his spouse and her health. Pt also reports he aspirates. Pt is agreeable to PT. Therapy Pain Assessment Pain When Pain Assessed At Rest Pain Present Pain Present Pain Reported M4 PT-IP Mobility and Gait Start: 12/31/23 13:39 Freq: NEEDED Status: Active Protocol: Document 01/01/24 13:37 TS (Rec: 01/01/24 13:51 TS [id number]) PT-Transfer Assessment Sit to and From Stand Sit to and from Stand Minimal Assistance,1 Person Assistance Equipment Transfer Assistive Device Gait Belt,Straight Cane Orthotic/Prosthetic Devices or Brace: Yes Comments Mobility Comments Pt performed STS x4 with use SPC Thi, pt has fair standing balance. He took ~6 steps from chair with use of SPC, pt is unsteady and has difficulty moving RLE. Pt reports he usually ambulates with a cane in each hand. Pt was left in chair, all needs met. Gait Assessment Gait Gait Assistance Required: Moderate Assistance Distance (Feet) 2 Able to Maintain Weight Bearing Status Yes During Gait Assistive Devices Assistive Device Gait Belt,Straight Cane Orthotic/Prosthetic Devices or Brace: Yes Gait Deviations General Gait Pattern Ataxic,Decreased Stride Length ,Decreased Feet Clearance,Step -to Gait Factors Limiting Gait Function Factors Limiting Gait Function Decreased Activity Tolerance, Decreased Sensation,Decreased Strength,Difficulty Following Directions,Incoordination, Limited Range of Motion,Pain, Poor Balance,Poor Safety Awareness PT-Balance Assessment Sitting Balance and Reactions Static Sitting Balance Ability Good Dynamic Sitting Balance Ability Fair Standing Balance and Reactions Static Standing Balance Ability Fair Dynamic Standing Balance Ability Poor Device Used SPC M5 PT-IP Objective Assessments Start: 12/31/23 13:39 Freq: NEEDED Status: Active Protocol: Document 12/31/23 10:55 AB (Rec: 12/31/23 13:51 AB [id number]) Orientation Orientation/Cognition Level of Alertness Alert Orientation Place,Situation Language Function Ability Hard of Hearing Safety Awareness Decreased Safety Awareness Memory Description Short Term Impaired Gross Range of Motion Lower Extremity ROM Assessment Within Functional Limits Strength Upper Extremity Strength Assessment Within Functional Limits Muscle Tone Muscle Tone WNL Yes M6 PT-IP Treatment Start: 12/31/23 13:39 Freq: NEEDED Status: Active Protocol: Document 01/01/24 13:37 TS (Rec: 01/01/24 13:51 TS [id number]) Physical Therapy Treatment Education Education Provided Precautions,Weight Bearing Status,Post-Op Packet,Safety M7 PT-IP Assessment and Plan Start: 12/31/23 13:39 Freq: NEEDED Status: Active Protocol: Document 01/01/24 13:37 TS (Rec: 01/01/24 13:51 TS [id number]) PT Summary Assessment and Plan Potential Rehabilitation Potential Fair Summary Impairments Pain,ROM,Strength,Balance, Coordination,Sensation,Tone, Cognition,Bed Mobility, Transfers,Gait,Activity Tolerance Progress Towards Goals Slow Progress due to Pain Assessment Summary Karthikeyan continues to make slow progress with his mobility. He performed STS x4 with SPC Thi for balance. He ambulated ~2' from chair ModA for use of cane. He is unsteady with cane and becomes fearful with gait. PT will continue to recommend SNF at this time. Goals Transfer Goal Contact Guard Assistance,Cane Gait Goal Contact Guard Assistance,Cane Gait Distance 50 Other Goals improve transfers and ambulation using SPC ~ 150 ft mod I Days to Meet Goals 10 Frequency of Treatment Frequency Of Treatment Twice a Day Treatment Plan Physical Therapy Treatment Plan Bed Mobility Training,Transfer Training,Gait Training, Therapeutic Exercise,Balance Retraining,Post Op Education, Discharge Planning,Hot or Cold Pack,Neuromuscular Re-ed, Coordination Retraining,Manual Therapy Precautions Shoulder Precautions Sling,PROM,Internal Rotation to Body,No External Rotation, No Abduction,Forward Flexion to 90 degrees,Pendulums Weight Bearing Status Weight Bearing Status Non-Weight Bearing Allowed Weight Bearing Amount (enter % RUE NWB or #) (%) Recommendations To Nursing Amount of Assist Needed 1 Person Assist Discharge Recommendations PT Discharge Recommendations SNF Rehab Transportation Needs at Discharge Wheelchair/Cabulance
[2024-01-01] MEDS: AMLODIPINE 5 MG TABLET PO (16:23)
[2024-01-01] MEDS: ONDANSETRON 4 MG ODT PO (17:56)
[2024-01-01] MEDS: QUETIAPINE 25 MG TABLET PO ×2 (20:40→21:45)
[2024-01-01] MEDS: METOPROLOL ER 50 MG TABLET 100 MG PO (20:40)
[2024-01-01] MEDS: SENNOSIDES 8.6 MG TABLET 17.2 MG PO (20:41)
[2024-01-01] MEDS: GENTAMICIN 0.1% CREAM 30 GM 1 APPLIC TOP (22:04)
[2024-01-01] MEDS: TRAZODONE 50 MG TABLET 300 MG PO (22:19)
[2024-01-02] VITALS (10 sets, daily range): BP systolic 124–150; BP diastolic 50–77; PULSE 59–108; RESP 16–20; TEMP 36.2–37.3; O2SAT 94–97
[2024-01-02] MEDS: IBUPROFEN 600 MG TABLET PO ×4 (01:18→20:10)
[2024-01-02] MEDS: ACETAMINOPHEN 325 MG TABLET 650 MG PO ×4 (01:19→20:10)
[2024-01-02] MEDS: OXYCODONE IR 5 MG TABLET 10 MG PO ×3 (01:20→13:55)
--- NOTE | 2024-01-02 09:08 | PM.PN.1 ---
Subjective Subjective Interval history: Patient seen this morning. Sleeping on my arrival. No acute distress. Easily arousable. Oriented an appropriate. Received a call from nursing staff the prior evening that he was agitated and shaky. As PRN order for nighttime Seroquel was given and will be continued on a nightly basis should he have similar symptoms. Operative Date/Time/Diagnoses Date of procedure: 12/30/23 Time of procedure: 18:17 Pre-op diagnosis: Right glenohumeral arthritis Post-op diagnosis: same Procedure & Clinicians Procedure: Right reverse total shoulder arthroplasty Exam Vital Signs (past 8 hours): - 01/02/24 01:26 01/02/24 06:07 Temperature 99.1 F 98.0 F Pulse Rate 108 H 75 Respiratory Rate 20 20 Blood Pressure 150/77 H 127/50 L Pulse Oximetry 94 97 Oxygen Flow Rate 0 0 Fraction of Inspired Oxygen 21 SaO2/FiO2 Ratio 447 Oxygen Delivery Method Room Air Oxygen Flow Rate 0 Narrative Exam Narrative: Right upper extremity examination: Dressing in place over the deltopectoral interval with very mild strike through on the dressing. Sensory motor function in the hand grossly intact with reported intact sensation in the median ulnar and radial nerves. Gross motor function normal although patient fairly tired this morning and did not follow commands to perform discrete movements of the median ulnar and radial nerves. Hand warm and well perfused Objective Labs 12/31/23 05:10 [facility] Medical History (Updated 12/31/23 @ 07:29 by Lin Wayne PA-C) Sacral decubitus ulcer Aspiration, chronic pulmonary Wound of left buttock (08/2023) Accident Narcotic dependence Ventricular bigeminy Anginal pain Asthma Ischemic cardiomyopathy History of aortic dissection (~08/2007) COPD (chronic obstructive pulmonary disease) Chronic obstructive pulmonary disease (10/23/16) Hypertension Atrial fibrillation Coronary artery disease Achalasia Cervical spinal stenosis Neck pain, chronic Surgical History (Updated 12/31/23 @ 07:29 by Lin Wayne PA-C) History of total replacement of left shoulder joint (05/25/19) History of lumbar spinal fusion (02/04/22) History of ankle surgery (10/2020) History of arthroplasty of left knee (05/25/19) History of incision and drainage (~2016) S/P cervical spinal fusion History of arthroplasty of right knee History of esophageal surgery Hx of hernia repair Hx of cholecystectomy Hx of sinus surgery History of surgery History of bilateral total hip arthroplasty S/P lumbar fusion History of cardiac cath (~03/2014) S/P CABG x 3 (~08/2007) History of prior ablation treatment (~03/2017) H/O arthroscopic knee surgery (11/15/17) Family History Mother Stroke Father Hypertension Social History household members: spouse Smoking Status: Former smoker alcohol intake: current substance use type: does not use Assessment & Plan Assessment and plan (1) Status post total shoulder arthroplasty: Status: Acute Plan Patient is wheelchair dependent and does not have support at home. Patient will need detention facility placement. Wound care for sacral decubitus ulcer Aspirin 81 mg b.i.d. for DVT prophylaxis PT/OT Sling to remain on for 6 weeks. No external rotation past neutral for 6 weeks. Keep dressing clean and dry. Sling may be removed for hygiene. Likely discharge to detention facility early this week Quality VTE Deep Vein Thrombosis/Pulmonary Embolism Present on Admission: No
[2024-01-02] MEDS: DOCUSATE 100 MG CAPSULE PO ×2 (10:01→20:17)
[2024-01-02] MEDS: ASPIRIN EC 81 MG TABLET PO ×2 (10:01→20:10)
[2024-01-02] MEDS: FUROSEMIDE 40 MG TABLET PO (10:01)
[2024-01-02] MEDS: NALOXONE 0.4 MG/ML VIAL 0.2 MG IV ×2 (10:05→10:29)
[2024-01-02] MEDS: ALBUTEROL 2.5 MG/3 ML NEB (ADULT) INH ×3 (10:24→21:56)
--- NOTE | 2024-01-02 10:34 | DI.RAD.S_ITS ---
PROCEDURE: XR CHEST 1V INDICATIONS: dyspnea TECHNIQUE: One view of the chest was acquired. COMPARISON: [facility], CR, XR CHEST 1V, 05/04/2022, 12:01. FINDINGS: Surgical changes and devices: Median sternotomy wires Lungs and pleura: Lungs are clear. No pleural effusions or pneumothorax. Mediastinum: Mediastinal contours appear normal. Heart size is normal. Bones and chest wall: No suspicious bony lesions. Overlying soft tissues appear unremarkable. IMPRESSION: No acute cardiopulmonary abnormality is seen. Approved by: Lenora Hopson M.D.,Ph.D. on 01/02/2024 at 11:21
--- NOTE | 2024-01-02 10:35 | PM.CN ---
History of Present Illness Consult details Date Patient Seen: 01/02/24 Time Patient Seen: 10:35 Chief complaint: INPT Reason for consult: Hypoxia and AMS Narrative: The patient had an episode of decreased responsiveness and hypoxia this morning. He is status post right shoulder surgery. He has having a lot of pain issues overnight. He initially was somewhat confused and denied any chest pain or dyspnea. An ECG was obtained as part of rapid response which was sinus rhythm with PVCs but no acute changes were noted. His oxygenation improved after Narcan was administered. He did have pinpoint pupils. He was re-interviewed about an hour later after complete recovery and notes he had a difficult night. His and a lot of pain and was sleeping flat which is not a good position for him. He typically will sleep with his head of bed up a bit and use nebulizers as needed for chest heaviness, or tightness. He does have a history of atrial fibrillation and CAD but denies any chest pain. He also denies any abdominal pain, nausea, or vomiting overnight. In addition, he adds that he was a do not resuscitate and would like to have this ordered change. He lives in [place] with his . He receives much of his care through the [facility]. Meds Home Medications and Allergies Home Medications Medication Instructions Recorded Confirmed Type multivitamin (Multiple Vitamins 1 tab PO DAILY ##0 12/21/16 12/20/23 History tablet) fluticasone propionate 50 1 spray intranasal DAILY PRN 11/03/17 12/30/23 History mcg/actuation nasal Allergy Symptoms ##0 spray,suspension levalbuterol tartrate 45 1 puff inhalation Q4-6H PRN 06/23/18 12/30/23 Rx mcg/actuation aerosol inhaler shortness of breath or wheezing (Xopenex HFA) #15 grams cetirizine 10 mg capsule (Zyrtec) 10 mg PO DAILY 05/23/19 12/20/23 History glipizide 2.5 mg tablet, extended 2.5 mg PO DAILY 10/09/21 12/30/23 History release 24 hr (Glucotrol XL) meclizine 25 mg tablet 25 mg PO QID PRN vertigo #30 tabs 10/10/21 12/20/23 Rx lisinopril 10 mg tablet 40 mg PO BID 12/09/21 12/30/23 History acetaminophen 300 mg-codeine 30 mg 2 tab PO Q4H PRN Pain (Scale Score 02/04/22 12/20/23 History tablet 4-6) furosemide 40 mg tablet 40 mg PO DAILY 02/04/22 12/30/23 History metoprolol succinate 100 mg 100 mg PO BEDTIME 02/04/22 12/30/23 History tablet,extended release 24 hr montelukast 10 mg tablet 10 mg PO DAILY 02/04/22 12/30/23 History amlodipine 2.5 mg tablet 2.5 mg PO QAM 12/20/23 12/30/23 History amlodipine 5 mg tablet 5 mg PO QPM 12/20/23 12/30/23 History omeprazole 20 mg tablet,delayed 20 mg PO BID 12/20/23 12/30/23 History release trazodone 100 mg tablet 200 - 400 tab PO BEDTIME 12/20/23 12/30/23 History Allergies Allergy/AdvReac Type Severity Reaction Status Date / Time diazepam [From Valium] Allergy Severe Confusion Verified 09/23/23 13:23 gabapentin Allergy Severe Hallucinati Verified 09/23/23 13:25 ng hydromorphone [From Dilaudid] Allergy Severe Hallucinating, Verified 09/23/23 13:23 He gets out of his mind morphine Allergy Severe Hallucinating, Verified 09/23/23 13:23 He gets out of his mind celecoxib [CELECOXIB] Allergy Mild SWELLING Verified 09/23/23 13:23 latex [LATEX] Allergy Mild RASH Verified 09/23/23 13:23 W/EXTENDED EXPOSURE Sulfa (Sulfonamide Allergy Mild RASH Verified 09/23/23 13:23 Antibiotics) [SULFA (SULFONAMIDE ANTIBIOTICS)] fentanyl AdvReac Severe Confusion Verified 09/23/23 13:23 varenicline [VARENICLINE] AdvReac Severe Paranoia Verified 09/23/23 13:23 buprenorphine [BUPRENORPHINE] AdvReac Mild NAUSEA, Verified 09/23/23 13:23 DIZZINESS hyoscyamine [HYOSCYAMINE] AdvReac Mild LEG Verified 09/23/23 13:23 JERKING, ANXIETY, NAUSEA W/I MINUTES Muwlniz-PVZ-PsN Reductase AdvReac Mild WEAK Verified 09/23/23 13:23 Inhibitor MUSCLES [WIRFXIP-UYU-SOU REDUCTASE INHIBITOR] Review of Systems Review of Systems Narrative: All else reviewed and otherwise unremarkable except as noted in the history and physical. Exam Vital Signs (past 8 hours): - 01/02/24 06:07 Temperature 98.0 F Pulse Rate 75 Respiratory Rate 20 Blood Pressure 127/50 L Pulse Oximetry 97 Oxygen Flow Rate 0 Fraction of Inspired Oxygen 21 SaO2/FiO2 Ratio 447 Oxygen Delivery Method Room Air Oxygen Flow Rate 0 Narrative Exam Narrative: NAD, alert and oriented, fluent speech, calm. Normocephalic skull, EOMI, anicteric sclera, symmetric pupils. Oropharynx unremarkable, no droop. Neck supple, midline trachea, no adenopathy. Lungs clear, normal rate and effort. Heart regular, no murmur gallop or rub. Abdomen is soft, non distended and non tender. Extremities are free of edema. Skin is free of rash or lesions. Joints are not swollen or deformed. Judgment appears to be normal. Right shoulder wound is dressed. He is wearing his sling. He has a good radial pulse in the right. Objective ECG Impression: Normal sinus rhythm without acute changes noted. PVC. Imaging Chest x-ray: Radiologist's impression: No acute abnormality is seen. Labs 01/02/24 11:00 01/02/24 11:00 [facility] Medical History Sacral decubitus ulcer Aspiration, chronic pulmonary Wound of left buttock (08/2023) Accident Narcotic dependence Ventricular bigeminy Anginal pain Asthma Ischemic cardiomyopathy History of aortic dissection (~08/2007) COPD (chronic obstructive pulmonary disease) Chronic obstructive pulmonary disease (10/23/16) Hypertension Atrial fibrillation Coronary artery disease Achalasia Cervical spinal stenosis Neck pain, chronic Surgical History History of total replacement of left shoulder joint (05/25/19) History of lumbar spinal fusion (02/04/22) History of ankle surgery (10/2020) History of arthroplasty of left knee (05/25/19) History of incision and drainage (~2016) S/P cervical spinal fusion History of arthroplasty of right knee History of esophageal surgery Hx of hernia repair Hx of cholecystectomy Hx of sinus surgery History of surgery History of bilateral total hip arthroplasty S/P lumbar fusion History of cardiac cath (~03/2014) S/P CABG x 3 (~08/2007) History of prior ablation treatment (~03/2017) H/O arthroscopic knee surgery (11/15/17) Family History Mother Stroke Father Hypertension Social History household members: spouse Tobacco & Substance Use Smoking Status: Former smoker alcohol intake: current substance use type: does not use Assessment & Plan Assessment & Plan narrative: 1. Episode of decreased level consciousness and see improved with Narcan, new and resolved. 2. Postoperative right shoulder and active. 3. Atrial fibrillation, present on admission and stable. 4. CAD, present on admission and stable. 5. COPD, present on admission and stable. 6. Ventricular arrhythmia, present on admission and stable. 7. Hypertension, present on admission and stable. Plan: -checked chest x-ray and ECG, both unremarkable. -we will continue telemetry and trend troponins x3. -nebulizers as needed, head of bed up. -change to do not resuscitate per his wishes. Time Spent With Patient Time with patient: 30 to 49 minutes with 50% spent counseling/coordinating care
[2024-01-02 11:11] LABS: Add Manual Diff / Slide Review NO; Basophils Absolute Auto 100 /uL (0-100); Basophils Percent Auto 0.9 % (0-2); Eosinophils Absolute Auto 200 /uL (0-450); Eosinophils Percent Auto 2.4 % (2-4); Hematocrit 32.1 % (41-53); Hemoglobin 10.6 g/dL (13.5-17.5); Lymphocytes Absolute Auto 1600 /uL (1100-4500); Lymphocytes Percent Auto 18.8 % (25-40); Mean Corpuscular Hemoglobin 28.4 PG (26-34); Monocytes Absolute Auto 1300 /uL (0-900); Monocytes Percent Auto 15.8 % (3-14); Neutrophils Absolute Auto 5200 /uL (1500-7000); Neutrophils Percent Auto 62.1 % (50-75); Platelet Count 234 X10^3/uL (150-400); Red Blood Cell Count 3.73 X10^6/uL (4.5-5.9); Red Cell Distribution Width 13.7 % (11.6-14.8); White Blood Cell Count 8.3 X10^3/uL (4.5-11.0)
[2024-01-02 11:23] LABS: Alanine Aminotransferase 18 IU/L (<50); Albumin 3.9 g/dL (3.5-5.0); Albumin Globulin Ratio 1.3 (1.0-2.8); Alkaline Phosphatase 60 U/L (38-126); Aspartate Aminotransferase 30 IU/L (17-59); BUN Creatinine Ratio 27.9 (6-22); Bilirubin Total 0.8 mg/dL (0.2-1.3); Blood Urea Nitrogen 19 mg/dL (9-20); Calcium 8.8 mg/dL (8.4-10.2); Carbon Dioxide 31 mmol/L (22-32); Chloride 105 mmol/L (98-107); Estimated Glomerular Filt Rate > 60 mL/min (>60); Glucose 114 mg/dL (80-110); HEMOLYSIS < 15 (0-50); Potassium 4.5 mmol/L (3.4-5.1); Sodium 139 mmol/L (137-145); Total Protein 6.9 g/dL (6.3-8.2)
[2024-01-02] MEDS: MONTELUKAST 10 MG TABLET PO (11:23)
[2024-01-02] MEDS: SODIUM CHLORIDE 0.9% FLUSH 10 ML IV ×2 (11:23→21:46)
[2024-01-02] MEDS: PANTOPRAZOLE DR 20 MG TABLET PO ×2 (11:23→20:17)
[2024-01-02] MEDS: MULTIVITAMIN 1 TABLET 1 TAB PO (11:23)
[2024-01-02] MEDS: polyethylene glycoL 3350 17 GM POWD.PACK PO (11:23)
[2024-01-02] MEDS: LORATADINE 10 MG TABLET PO (11:23)
[2024-01-02 11:35] LABS: Troponin I < 0.012 ng/mL (0.01-0.034)
--- NOTE | 2024-01-02 14:05 | PT.IPTN ---
Current Diagnoses Pressure ulcer of sacral region, unspecified stage (12/30/23) Other specific arthropathies, not elsewhere classified, right shoulder (12/30/23) Presence of unspecified artificial shoulder joint (12/30/23) Surgery Performed Operation Date: 12/30/23 15:15 Actual Procedures p Total Shoulder Arthroplasty - Reverse with biceps tenodesis(Right) - Miguelangel Webb MD Physical Therapy Treatment Note M2 PT-IP Current Condition Start: 12/31/23 13:39 Freq: NEEDED Status: Active Protocol: Document 12/31/23 10:55 AB (Rec: 12/31/23 13:51 AB [id number]) Physical Therapy Current Condition Current Condition Evaluation Date 12/31/23 Treatment Diagnosis s/p TSA reverse; difficulty in walking M3 PT-IP Subjective Start: 12/31/23 13:39 Freq: NEEDED Status: Active Protocol: Document 01/02/24 13:32 MB (Rec: 01/02/24 14:05 MB [id number]) Subjective Physical Therapy Visit Type Type Treatment Note Visit Start Time 13:32 Visit Stop Time 13:55 Number of BRANNER MACHINE TENDER Visits 0 Physical Therapy Visit Comments Patient Comments Pt is agitated and talking about sleeping position overnight and PT creates sign with instructions not to lie bed flat and tapes on wall above head board. It is difficult to get pt to focus away from that concern and he is impulsive with mobility. Therapy Pain Assessment Pain When Pain Assessed At Rest Pain Present Pain Present Pain Reported Location Right Shoulder Pain Management Techniques Distraction,Re-positioning M4 PT-IP Mobility and Gait Start: 12/31/23 13:39 Freq: NEEDED Status: Active Protocol: Document 01/02/24 13:32 MB (Rec: 01/02/24 14:05 MB [id number]) PT-Transfer Assessment Sit to and From Stand Sit to and from Stand Minimal Assistance,1 Person Assistance Equipment Transfer Assistive Device Gait Belt,Straight Cane Orthotic/Prosthetic Devices or Brace: Yes Transfers Transfer Destination Chair,Toilet Transfer Technique Ambulation Transfer Ability Level of Assist Minimal Assistance,1 Person Assistance Comments Mobility Comments Cues to use left hand to push up from chair and BR rail for STS transfers. Ed pt to try to use cane in left hand and he passes it to SPT rather than trying gait training. Pt cannot rate pain is is hyperfocused/agitated on non- related PT issues during short treatment Gait Assessment Gait Gait Assistance Required: Moderate Assistance,1 Person Assist Distance (Feet) 15 Able to Maintain Weight Bearing Status No During Gait Assistive Devices Assistive Device Gait Belt,Straight Cane Gait Deviations General Gait Pattern Ataxic,Decreased Stride Length ,Decreased Feet Clearance,Step -to Gait Factors Limiting Gait Function Factors Limiting Gait Function Decreased Activity Tolerance, Decreased Sensation,Decreased Strength,Difficulty Following Directions,Incoordination, Limited Range of Motion,Pain, Poor Balance,Poor Safety Awareness Comments Gait Comments Sling on right arm and pt reaches for BR rail with right hand and pushes his body into rail and wall in BR, he is anxious about trying to use cane in left hand PT-Balance Assessment Sitting Balance and Reactions Static Sitting Balance Ability Good Dynamic Sitting Balance Ability Fair Standing Balance and Reactions Static Standing Balance Ability Fair Dynamic Standing Balance Ability Poor Device Used SPC M5 PT-IP Objective Assessments Start: 12/31/23 13:39 Freq: NEEDED Status: Active Protocol: Document 12/31/23 10:55 AB (Rec: 12/31/23 13:51 AB [id number]) Orientation Orientation/Cognition Level of Alertness Alert Orientation Place,Situation Language Function Ability Hard of Hearing Safety Awareness Decreased Safety Awareness Memory Description Short Term Impaired Gross Range of Motion Lower Extremity ROM Assessment Within Functional Limits Strength Upper Extremity Strength Assessment Within Functional Limits Muscle Tone Muscle Tone WNL Yes M6 PT-IP Treatment Start: 12/31/23 13:39 Freq: NEEDED Status: Active Protocol: Document 01/02/24 13:32 MB (Rec: 01/02/24 14:05 [id number]) Physical Therapy Treatment Education Education Provided Precautions,Weight Bearing Status,Post-Op Packet,Safety Other Treatments Other Treatment Performed Re-ed pt on not using right hand to reach for rail, etc, benefits of PT for AD training for left hand M7 PT-IP Assessment and Plan Start: 12/31/23 13:39 Freq: NEEDED Status: Active Protocol: Document 01/02/24 13:32 MB (Rec: 01/02/24 14:05 MB [id number]) PT Summary Assessment and Plan Potential Rehabilitation Potential Fair Summary Impairments Pain,ROM,Strength,Balance, Coordination,Cognition,Bed Mobility,Transfers,Gait, Activity Tolerance Progress Towards Goals Slow Progress due to Pain Assessment Summary Pt is very impulsive and does not wait for PT before transfers and he is anxious once up and uses right hand on BR rail and states he cannot use his left hand. PT attempts to encourage him that he can use his left hand has he used a cane in both hands at baseline. Pt becomes hyperfocused on sleeping position last night and sacral dressing. PT is unable to re- direct pt well for AD training in left hand this afternoon. Goals Transfer Goal Contact Guard Assistance,Cane Gait Goal Contact Guard Assistance,Cane Gait Distance 50 Other Goals improve transfers and ambulation using SPC ~ 150 ft mod I Days to Meet Goals 10 Frequency of Treatment Frequency Of Treatment Once a Day Treatment Plan Physical Therapy Treatment Plan Bed Mobility Training,Transfer Training,Gait Training, Therapeutic Exercise,Balance Retraining,Post Op Education, Discharge Planning,Hot or Cold Pack,Neuromuscular Re-ed, Coordination Retraining,Manual Therapy Precautions Shoulder Precautions Sling,No External Rotation Other Precautions This PT does not feel that pt is safe to do pendulums given poor LE strength and balance functionally and decreased safety awareness Weight Bearing Status Weight Bearing Status Non-Weight Bearing Allowed Weight Bearing Amount (enter % RUE NWB or #) (%) Recommendations To Nursing Amount of Assist Needed 1 Person Assist Discharge Recommendations PT Discharge Recommendations SNF Rehab Transportation Needs at Discharge Wheelchair/Cabulance
[2024-01-02] MEDS: LORazepam 2 MG/ML INJ 0.5 MG IV (16:47)
--- NOTE | 2024-01-02 17:08 | CM.DPNOTE ---
Addendum entered by CELESTINA Barba 01/02/24 17:13: Correction to previous note, pt has [facility], not [facility]. Original Note: DCP Note CAN FILLING AND CLOSING MACHINE TENDER reviewed EMR. Hospitalist consulted due to pt having an episode of decreased responsiveness and hypoxia. pt had narcan and symptoms resolved. Per chart review, Pt had some agitation overnight and had seroquel. CAN FILLING AND CLOSING MACHINE TENDER spoke with Anjali from [facility], report they are hesitant to accept him due to hx of PTSD, SI, and seroquel. Would need another day to review. CAN FILLING AND CLOSING MACHINE TENDER spoke with Katherine at [facility], no bed availability until mid-late next week. CAN FILLING AND CLOSING MACHINE TENDER unable to meet with pt today due to triaging needs. Plan: pt hopeful for SNF placement. [facility] reviewing. CM team will cotninue to pursue additional SNF placements. [place] referral needed. CELESTINA Barba
--- NOTE | 2024-01-02 17:41 | PC.NURSE ---
Event Note 1000- patient began to complain of SOB, O2 sat stable at 96% on RA, patient placed on 2L NC for comfort, bed up to 90 degrees. Patient was bradycardic HR 40's on O2 monitor, confirmed through auscultation by this RN, patient placed on tele. RT to bedside for breathing treatment. Patient with continued difficulty staying awake, pupils pinpointed, and depressed WOB. Patient received several doses of PO oxycodone in past shift, narcan given times 2 by this RN. Patient without PIV, 1st dose given IM and second dose IV when IV access established. Patient LOC improved after a few minutes, patient continued with bradycardia and STAT EKG ordered. bingo caller MD Dr Mack called and updated on patient change of condition, order for hospitalist consult VTORB inputed. Hospitalist Dr Vargas updated and new orders received and implemented by this RN. Will continue to monitor.
[2024-01-02] MEDS: OXYCODONE IR 5 MG TABLET PO ×2 (18:29→21:40)
[2024-01-02 19:22] LABS: Troponin I < 0.012 ng/mL (0.01-0.034)
[2024-01-02] MEDS: SENNOSIDES 8.6 MG TABLET 17.2 MG PO (20:17)
[2024-01-02] MEDS: METOPROLOL ER 50 MG TABLET 100 MG PO (20:18)
[2024-01-02] MEDS: chlordiazePOXIDE 10 MG CAPSULE PO (20:18)
[2024-01-02] MEDS: lisinopriL 10 MG TABLET 40 MG PO (20:21)
[2024-01-02] MEDS: TRAZODONE 50 MG TABLET 150 MG PO ×2 (21:42)
[2024-01-02] MEDS: FLUTICASONE 120 SPRAY/16 GM SPRAY.SUSP NASAL (21:56)
[2024-01-03 00:33] VITALS: BP 151/55; PULSE 84; RESP 17; O2SAT 96
[2024-01-03] MEDS: IBUPROFEN 600 MG TABLET PO ×5 (00:39→23:45)
[2024-01-03] MEDS: ACETAMINOPHEN 325 MG TABLET 650 MG PO ×5 (00:39→23:45)
[2024-01-03] MEDS: OXYCODONE IR 5 MG TABLET PO ×2 (00:39→03:59)
--- NOTE | 2024-01-03 02:30 | PC.NURSE ---
teletype mechanic: Patient is alert to self, place, & situation. Stated 1953 when asked what year it is. Forgetful at times, using call-light repeatedly. VSS, O2 saturation 96% on RA. Requested breathing treatment at bedtime, given per RT. Right shoulder incision covered w/ aquacel drsg is CDI, shoulder sling in place, CMS intact. Medicated as ordered & placed ice pack for post-op pain. Patient has been agitated and restless, yelling out and will burst into tears at times, also anxious about discharge asking repeatedly if he will be going to SNF tomorrow. Patient stated my mind is running, requesting Ativan. Notified MD Diaz, new orders placed. Fall precautions in place, plan of care ongoing.
[2024-01-03] MEDS: ALBUTEROL 2.5 MG/3 ML NEB (ADULT) INH ×3 (03:05→16:52)
--- NOTE | 2024-01-03 07:36 | P.PN_ITS ---
Subjective Subjective Interval history: He is better today. Did not sleep last night. Is oriented to place but not year. Calm. Exam Vital Signs (past 8 hours): - 01/03/24 00:33 Pulse Rate 84 Respiratory Rate 17 Blood Pressure 151/55 H Pulse Oximetry 96 Oxygen Flow Rate 0 Fraction of Inspired Oxygen 21 SaO2/FiO2 Ratio 447 Oxygen Delivery Method Room Air Oxygen Flow Rate 0 Narrative Exam Narrative: NAD, alert and oriented to person and place. Fluent speech. Lungs are clear, normal rate and effort. Heart is regular, no murmur gallop or rub. Abdomen is soft, non distended. Extremities are free of edema. Right shoulder slinged.Wound dressed and looks good. Objective Labs 01/02/24 11:00 01/02/24 11:00 Labs: Laboratory Results - last 24 hr 01/02/24 01/02/24 11:00 18:45 WBC 8.3 RBC 3.73 L Hgb 10.6 L Hct 32.1 L MCV 86.0 MCH 28.4 MCHC 33.0 RDW 13.7 Plt Count 234 Neut % (Auto) 62.1 Lymph % (Auto) 18.8 L [place] % (Auto) 15.8 H Eos % (Auto) 2.4 Baso % (Auto) 0.9 Neut # (Auto) 5200 Lymph # (Auto) 1600 [place] # (Auto) 1300 H Eos # (Auto) 200 Baso # (Auto) 100 Sodium 139 Potassium 4.5 Chloride 105 Carbon Dioxide 31 BUN 19 Creatinine 0.68 Estimated GFR > 60 BUN/Creatinine Ratio 27.9 H Glucose 114 H Calcium 8.8 Total Bilirubin 0.8 AST 30 ALT 18 Alkaline Phosphatase 60 Troponin I < 0.012 < 0.012 Total Protein 6.9 Albumin 3.9 Globulin 3.0 Albumin/Globulin Ratio 1.3 [facility] Medical History Sacral decubitus ulcer Aspiration, chronic pulmonary Wound of left buttock (08/2023) Accident Narcotic dependence Ventricular bigeminy Anginal pain Asthma Ischemic cardiomyopathy History of aortic dissection (~08/2007) COPD (chronic obstructive pulmonary disease) Chronic obstructive pulmonary disease (10/23/16) Hypertension Atrial fibrillation Coronary artery disease Achalasia Cervical spinal stenosis Neck pain, chronic Surgical History History of total replacement of left shoulder joint (05/25/19) History of lumbar spinal fusion (02/04/22) History of ankle surgery (10/2020) History of arthroplasty of left knee (05/25/19) History of incision and drainage (~2016) S/P cervical spinal fusion History of arthroplasty of right knee History of esophageal surgery Hx of hernia repair Hx of cholecystectomy Hx of sinus surgery History of surgery History of bilateral total hip arthroplasty S/P lumbar fusion History of cardiac cath (~03/2014) S/P CABG x 3 (~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 Episode of decreased level consciousness and see improved with Narcan, new and improved. 2. Encephalopathy, new and improving. 3. Insomnia, new and active. 4. Postoperative right shoulder and active. 5. Atrial fibrillation, present on admission and stable. 6. CAD, present on admission and stable. 7. COPD, present on admission and stable. 8. Ventricular arrhythmia, present on admission and stable. 9. Hypertension, present on admission and stable. He is improved overall. -Today we will continue Librium at 10 t.i.d. -increase oxycodone for pain, -and restart Seroquel HS for sleep. -We are looking for a SNF. Estimated date of discharge is January 03. Quality VTE Deep Vein Thrombosis/Pulmonary Embolism Present on Admission: No
--- NOTE | 2024-01-03 07:48 | PM.PN.1 ---
Subjective Subjective Interval history: Operative Date/Time/Diagnoses Date of procedure: 12/30/23 Time of procedure: 18:17 Pre-op diagnosis: Right glenohumeral arthritis Post-op diagnosis: same Procedure & Clinicians Procedure: Right reverse total shoulder arthroplasty Patient seen this AM. Resting comfortably sitting upright in bed with legs crossed in front of him and back not resting on bed. States that he gets congested when lying down and attributes this to his chest pain he experienced yesterday. States that he wants 10 mg opiate doses rather than 5 mg doses however he was fairly sedated yesterday on my exam and reportedly had increased alertness following narcan administration. Patient reports no new issues overnight. Internal medicine consulted yesterday due to the chest pain. Cardiac workup was normal. Exam Vital Signs (past 8 hours): - 01/03/24 00:33 Pulse Rate 84 Respiratory Rate 17 Blood Pressure 151/55 H Pulse Oximetry 96 Oxygen Flow Rate 0 Fraction of Inspired Oxygen 21 SaO2/FiO2 Ratio 447 Oxygen Delivery Method Room Air Oxygen Flow Rate 0 Narrative Exam Narrative: Awake, alert, conversant, aware of present situation. RUE dressing with no increase in spotting on bandage. Gives thumbs up, crosses fingers, makes ok sign. Hand warm well perfused Objective Labs 01/02/24 11:00 01/02/24 11:00 Labs: Laboratory Results - last 24 hr 01/02/24 01/02/24 11:00 18:45 WBC 8.3 RBC 3.73 L Hgb 10.6 L Hct 32.1 L MCV 86.0 MCH 28.4 MCHC 33.0 RDW 13.7 Plt Count 234 Neut % (Auto) 62.1 Lymph % (Auto) 18.8 L [place] % (Auto) 15.8 H Eos % (Auto) 2.4 Baso % (Auto) 0.9 Neut # (Auto) 5200 Lymph # (Auto) 1600 [place] # (Auto) 1300 H Eos # (Auto) 200 Baso # (Auto) 100 Sodium 139 Potassium 4.5 Chloride 105 Carbon Dioxide 31 BUN 19 Creatinine 0.68 Estimated GFR > 60 BUN/Creatinine Ratio 27.9 H Glucose 114 H Calcium 8.8 Total Bilirubin 0.8 AST 30 ALT 18 Alkaline Phosphatase 60 Troponin I < 0.012 < 0.012 Total Protein 6.9 Albumin 3.9 Globulin 3.0 Albumin/Globulin Ratio 1.3 PFSH Medical History Sacral decubitus ulcer Aspiration, chronic pulmonary Wound of left buttock (08/2023) Accident Narcotic dependence Ventricular bigeminy Anginal pain Asthma Ischemic cardiomyopathy History of aortic dissection (~08/2007) COPD (chronic obstructive pulmonary disease) Chronic obstructive pulmonary disease (10/23/16) Hypertension Atrial fibrillation Coronary artery disease Achalasia Cervical spinal stenosis Neck pain, chronic Surgical History History of total replacement of left shoulder joint (05/25/19) History of lumbar spinal fusion (02/04/22) History of ankle surgery (10/2020) History of arthroplasty of left knee (05/25/19) History of incision and drainage (~2016) S/P cervical spinal fusion History of arthroplasty of right knee History of esophageal surgery Hx of hernia repair Hx of cholecystectomy Hx of sinus surgery History of surgery History of bilateral total hip arthroplasty S/P lumbar fusion History of cardiac cath (~03/2014) S/P CABG x 3 (~08/2007) History of prior ablation treatment (~03/2017) H/O arthroscopic knee surgery (11/15/17) Family History Mother Stroke Father Hypertension Social History household members: spouse Smoking Status: Former smoker alcohol intake: current substance use type: does not use Assessment & Plan Assessment and plan (1) Status post total shoulder arthroplasty: Status: Acute (2) Sacral decubitus ulcer: Status: Acute Plan Patient is wheelchair dependent and does not have support at home. Patient will need detention facility placement. - Wound care for sacral decubitus ulcer - Aspirin 81 mg b.i.d. for DVT prophylaxis - PT/OT - Sling to remain on for 6 weeks. No external rotation past neutral for 6 weeks. Keep dressing clean and dry. Sling may be removed for hygiene. - SNF planning still ongoing. Working on insurance approval. Cardiac workup yesterday also delayed matters. Continuing to plan for eventual SNF DC, although this will not be today Quality VTE Deep Vein Thrombosis/Pulmonary Embolism Present on Admission: No
[2024-01-03] MEDS: MONTELUKAST 10 MG TABLET PO (08:17)
[2024-01-03] MEDS: LORATADINE 10 MG TABLET PO (08:17)
[2024-01-03] MEDS: MULTIVITAMIN 1 TABLET 1 TAB PO (08:17)
[2024-01-03] MEDS: DOCUSATE 100 MG CAPSULE PO ×2 (08:17→19:51)
[2024-01-03] MEDS: PANTOPRAZOLE DR 20 MG TABLET PO ×2 (08:17→19:50)
[2024-01-03] MEDS: polyethylene glycoL 3350 17 GM POWD.PACK PO (08:18)
[2024-01-03] MEDS: chlordiazePOXIDE 10 MG CAPSULE PO ×2 (08:18→14:58)
[2024-01-03] MEDS: FUROSEMIDE 40 MG TABLET PO (08:18)
[2024-01-03] MEDS: ASPIRIN EC 81 MG TABLET PO ×2 (08:18→19:51)
[2024-01-03] MEDS: OXYCODONE IR 5 MG TABLET 10 MG PO ×4 (08:26→23:45)
[2024-01-03] MEDS: SODIUM CHLORIDE 0.9% FLUSH 10 ML IV ×2 (08:30→22:16)
[2024-01-03 09:00] VITALS: BP 116/50; PULSE 67; RESP 16; TEMP 36; O2SAT 95
--- NOTE | 2024-01-03 09:25 | DIET.CONS ---
Dietary Consultation Note Admission Date: 12/30/2023 12:23 Assessment: 78 y M admitted for R-shoulder arthroplasty surgery. Nutrition consulted for sacral decubitus ulcer. Pt sleeping soundly x2 attempted visits. Reviewed chart. Adequate recorded po intakes. Providing Michele BID and provided nutrition and wound caring handout. Ht: 185.42 cm Wt: 91.172 kg BMI: 27.9 UBW: limited weight hx, 88.5 kg 12/20/23, non-significant weight loss Last BM: 12/30/23 (12/30/23 22:10) MNA: Chuckie Score: 8 Diet: 12/31/23 Breakfast General (Regular) Diet Diet Modifications: Food Texture: Level 7 - Regular Liquid Consistency: Level 0 - Thin Nutrition Percent Meal Consumed soda drinks 01/02/24 23:58 Percent Meal Consumed 50% 01/02/24 18:00 Percent Meal Consumed 100% 01/02/24 13:00 Percent Meal Consumed 100% 01/02/24 09:45 Labs: RBC 3.73 X10^6/uL (4.5-5.9) L 01/02/24 11:00 Hgb 10.6 g/dL (13.5-17.5) L 01/02/24 11:00 Hct 32.1 % (41-53) L 01/02/24 11:00 Creatinine 0.68 mg/dL (0.66-1.25) 01/02/24 11:00 Nutrition Diagnosis: Increased nutrient needs (protein) r/t healing needs aeb sacral decubitus ulcer Interventions: 1. Michele BID 2. Nutrition for wound healing handout EER: 100-115 g protein (1.2 g/kg per wound) Monitoring/Evaluations: po intake, michele tolerance Electronically Signed by: Ashley Weinstein 01/03/24 09:25 Clinical Dietitian [address] [address]
--- NOTE | 2024-01-03 14:00 | OT.IP.TRT ---
Current Diagnoses Pressure ulcer of sacral region, unspecified stage (12/30/23) Other specific arthropathies, not elsewhere classified, right shoulder (12/30/23) Presence of unspecified artificial shoulder joint (12/30/23) Surgery Performed Operation Date: 12/30/23 15:15 Actual Procedures p Total Shoulder Arthroplasty - Reverse with biceps tenodesis(Right) - Miguelangel Webb MD Occupational Therapy Treatment Note M2 OT-IP Current Condition Start: 12/31/23 14:02 Freq: Status: Active Protocol: Document 12/31/23 14:02 [facility] (Rec: 12/31/23 14:24 [facility] [id number]) Occupational Therapy Current Condition Current Condition Evaluation Date 12/31/23 Treatment Diagnosis S/P R TSA Diagnosis Onset Date 12/30/23 Post Operative Precautions Shoulder Precautions Sling Other Precautions NO ER past neutral Weight Bearing Status Weight Bearing Status Non-Weight Bearing M3 OT- IP Subjective and Pain Start: 12/31/23 14:02 Freq: Status: Active Protocol: Document 01/03/24 13:58 [facility] (Rec: 01/03/24 14:05 [facility] [id number]) OT- Subjective Occupational Therapy Visit Type Type Treatment Note Visit Start Time 13:40 Visit Stop Time 13:58 Occupational Therapy Visit Comments Patient Comments Pt agreed to work on learning how to ashley/doff his sling. Patient/Caregiver Goals To get better. OT Pain Assessment Pain When Pain Assessed At Rest Pain Present Pain Present Pain Reported Location Right Shoulder Pain Behaviors Crying,Facial Grimacing, Moaning,Wincing M4 OT- IP ADL's Start: 12/31/23 14:02 Freq: Status: Active Protocol: Document 01/03/24 13:58 [facility] (Rec: 01/03/24 14:05 [facility] [id number]) OT RTO-Labr-Racqdid Comments OT Self-Feeding Comments Pt will need set-up. OT ADL-Grooming Comments OT Grooming Comments Set-up assist. Pt able to comb his hair. OT ADL-Oral Care Comments Oral Care Comments Not performed, pt states did earlier. OT ADL-Dressing Comments OT Dressing Comments Able to go over how to ashley/ doff the sling with pt. Pt still needing MAXA for sling management needs. OT ADL-Toileting Comments OT Toileting Comments Pt states not having to go at this time. OT ADL-Bathing Comments OT Bathing Comments Not performed. M5 OT- IP IADL's Start: 12/31/23 14:02 Freq: Status: Active Protocol: Document 12/31/23 14:02 [facility] (Rec: 12/31/23 14:24 [facility] [id number]) OT-Instrumental Activities of Daily Living Home Safety Awareness Home Safety Comments Pt very insistent on his care. M6 OT- IP Functional Cognition Start: 12/31/23 14:02 Freq: Status: Active Protocol: Document 01/03/24 13:58 [facility] (Rec: 01/03/24 14:05 [facility] [id number]) Cognitive Factors Limiting Selfcare Function Cognitive Ability Level of Alertness Alert Patient Orientation Name,Place,Situation Attention Span Ability Capable of Focused Attention, Capable of Sustained Attention Ability to Follow Commands Able to Follow One Step Commands with Increased Time, Able to Follow One Step Commands with Repetition Memory Description Short Term Impaired Cognitive Comments Cognitive Assessment Comments Pt is more cooperative today and able to follow commands. Pt able to actively participate for learning to ashley/doff the sling. Pt able to exercises from elbow to distal with assist. Noted MOD swelling in right arm and hand . OT- Vision and Hearing OT- Hearing Assessment OT- Hearing Assessment Hearing Impaired M8 OT- IP Objective Assessments Start: 12/31/23 14:02 Freq: Status: Active Protocol: Document 12/31/23 14:02 [facility] (Rec: 12/31/23 14:24 [facility] [id number]) OT Gross Range of Motion Upper Extremity Range of Motion Assessment Bilaterally Impaired OT Strength Upper Extremity Strength Assessment Right Impaired OT- Coordination Assessment Comments Coordination Comments Pt able to open and close his right hand. M9 OT- IP Assessment and Plan Start: 12/31/23 14:02 Freq: Status: Active Protocol: Document 01/03/24 13:58 [facility] (Rec: 01/03/24 14:05 [facility] [id number]) OT Summary Assessment and Plan Potential Rehabilitation Potential Fair Analytic Complexity at Evaluation Low Summary OT Impairments Pain,Range of Motion,Strength, Balance,Functional Cognition, Functional Mobility,Dressing, Toileting,Bathing,Toilet Transfers,Shower Transfers, Activity Tolerance Progress Towards Goals Progressing Toward Goals,Slow Progress due to Pain,Slow Progress due to Medical Issues Assessment Summary Pt is cooperative today in trying to learn how to ashley/ doff his sling and for doing RUE exercises with assist from elbow to distal. Pt having lots of pain and called his nurse to request for toshia medications. Pt to go to skilled rehab when medically stable. Pt well aware that he should be using a SPC when up on his feet and with help. Goals Grooming Goal Standby Assistance Dressing Goal Minimal Assistance Toileting Goal Minimal Assistance Bathing Goal Minimal Assistance Toilet Transfer Goal Standby Assistance Shower Transfer Goal Contact Guard Assistance Days to Meet Goals 15 Frequency of Treatment Frequency Of Treatment Once a Day Treatment Plan OT Treatment Plan ADL Training,Functional Mobility,Patient/Family Education,Discharge Planning Discharge Recommendations OT Discharge Recommendations SNF Rehab Transportation Needs at Discharge Wheelchair/Cabulance
--- NOTE | 2024-01-03 15:14 | PT-IP ANOTE ---
PT reviews chart and checks in on pt for treatment. Pt snoozing sitting upright in chair. Pt is confused upon PT awakening and c/o bad dreams. He requires cues to remember where he is and he finally remembers surgery. He states month as January. He does not report pain. BP and HR LUE 156/67, 87, sats over 90s% on RA. Nsg states that pt has had pain medication and nightmares. Pt is not clear enough for PT treatment this afternoon. Con't PT efforts next date.
--- NOTE | 2024-01-03 15:19 | CM.DPC ---
DCP SNF Planning: Per MD, pt making slow progress and still requiring increased assist and recommendation of SNF at d/c. Per PT/OT, pt able to participate a little better today and still recommending SNF before return home with spouse. SW called following [facility] contracted SNFs that were sent referrals today: [facility]- decline accepting pt [facility] reviewing for both facilities and [facility] has less beds at this time. [facility]- unlikely they can accept but waiting for final review by administrators tomorrow Tues due to the holiday today. [facility]- reviewing [facility]- reviewing but might not have beds for a few days. [facility] previously completed in anticipation of SNF. SW faxed [facility] to review for SNF auth and awaiting determination. Plan: SW to follow closely for [facility] review for SNF auth and [facility], [facility], [facility] review to determine if any can accept. Kamila Fregoso MSW
[2024-01-03 18:00] VITALS: BP 168/64; PULSE 76; RESP 18; TEMP 36.6; O2SAT 96
[2024-01-03] MEDS: AMLODIPINE 5 MG TABLET PO (18:58)
[2024-01-03 19:00] VITALS: BP 174/64; PULSE 88; RESP 18; TEMP 37.1; O2SAT 97
--- NOTE | 2024-01-03 19:43 | PC.NURSE ---
Patient confused/forgetful, anxious and impulsive throughout day, with periods of better lucidity and cooperation as well as periods of increased confusion and anxiety. Patient intermittently removed sling to right arm. Patient intermittently attempted to get up by himself. Patient attempts to use cane in right hand. Frequent re orientation and distraction required. Patient refused hospital socks, and is wearing his own socks which do have a non skid surface on the bottom. Patient refused yellow gown, pulling it off until blue gown used. Chair alarm in use, along with high fall precaution protocol. Aquacel to right shoulder remains intact without bleeding or drainage. Sling is to stay in place for 6 weeks, OT and PT attempted to work with patient today. Left buttocks wound (POA) swabbed for culture and allevyn dressing applied. Patient had BM today, tolerating diet, voiding in urinal with assistance holding in place. Patient's called today, spoke with this RN and her on speaker phone, insistent that patient can not tolerate librium and that only ativan is approved for his use. Patient states she could not come into because it was her birthday, and also a holiday and she did not want to drive in traffic, states she will come in tomorrow.
[2024-01-03] MEDS: METOPROLOL ER 50 MG TABLET 100 MG PO (19:50)
[2024-01-03] MEDS: LORazepam 1 MG TABLET PO (19:50)
[2024-01-03] MEDS: lisinopriL 10 MG TABLET 40 MG PO (19:51)
[2024-01-03] MEDS: SENNOSIDES 8.6 MG TABLET 17.2 MG PO (19:51)
--- NOTE | 2024-01-03 22:21 | PC.NURSE ---
Addendum entered by Lizzy Villagomez R.N. 01/03/24 23:01: Pt care being transferred to another nurse Fern MATTHEWS Original Note: Assumed care of patient at 1900. pt crying in the room, asking for pain medications, state It hurt so much on my right shoulder, I am dying. Per dayshift nurse pt hasn't slept since he has been hospitalized. pt has history of alcohol abuse, unknown when was the last time he had alcohol. Per pt pt doesn't take Librium and or doesn't do well with it and that the only thing that helps is Ativan. Nursing staff was able to speak with patient brother over the phone and he states that pt has history of brain injury in the past. Pt knows his name and is able to let nursing staff when he needs to use the bathroom. Pt needs frequent reminders to let him know that he is safe and in the hospital. Nursing staff seating outside of the patient to reassure him he is in the hospital. this nurse leela didn't give pt his seroquel or trazadone since pt was given Narcan due to sedation and pt was started back on his home Ativan po.
[2024-01-03 23:25] VITALS: O2SAT 95
[2024-01-03 23:50] VITALS: BP 165/72; PULSE 78
[2024-01-04] VITALS (8 sets, daily range): BP systolic 130–175; BP diastolic 61–78; PULSE 70–90; RESP 16–27; TEMP 36.2–36.8; O2SAT 95–99
--- NOTE | 2024-01-04 01:51 | PC.NURSE ---
Addendum entered by Fern Panda R.N. 01/04/24 06:32: Patient repeatedly removing sling and then yells out that his right shoulder hurts. also removing ice pack when placed. attempting to educate patient on importance of keeping sling on, patient is stating that he is not removing it although this RN has witnessed it multiple times. Addendum entered by Fern Panda R.N. 01/04/24 05:14: Patient had complaints of a stomach ache, notified MD Pierre, [place]jazz ordered and given. Patient now has complaints of sternum and chest pain. O2 saturation 96% on RA, HR 70, BP 130/61. Also stating he can't take a deep breath and has phlegm, requesting breathing treatment. Patient is alert and talking, shouting out that he also needs to pee and attempting to get OOB by himself. Stood patient at bedside with assistance to pee. Notified MD Pierre, continuing to monitor for now. Breathing treatment given per RT. Patient stated he felt better after breathing treatment. Addendum entered by Fern Panda R.N. 01/04/24 03:29: Responded immediately to bed alarm and found patient standing beside bed; patient stated he had a nightmare and is confused. Reoriented patient to situation. Patient stated oh, it's all coming back to me now. Patient's behavior is erratic, will burst into tears spontaneously. Requires frequent reorientation of situation throughout the night. Original Note: Patient is alert to self, place, and somewhat aware of situation. Patient is very forgetful and calling repeatedly for same things. Patient will remove shoulder sling, take off his gown, and throw it across the room for no apparent reason. Right shoulder incision is covered w/ aquacel drsg, CDI. Requested breathing treatment, given per RT. O2 saturation 95% on RA, patient in bed w/ HOB >30 degrees as requested. Fall precautions in place. Plan of care ongoing.
[2024-01-04] MEDS: LORazepam 1 MG TABLET PO ×3 (03:34→20:02)
[2024-01-04] MEDS: CALCIUM CARBONATE 500 MG TAB PO ×2 (04:21→18:34)
[2024-01-04] MEDS: ALBUTEROL 2.5 MG/3 ML NEB (ADULT) INH ×3 (05:13→20:54)
[2024-01-04] MEDS: ACETAMINOPHEN 325 MG TABLET 650 MG PO ×3 (06:08→18:14)
[2024-01-04] MEDS: IBUPROFEN 600 MG TABLET PO ×3 (06:08→18:15)
--- NOTE | 2024-01-04 07:33 | PM.PNPO.1 ---
Subjective Subjective Date Patient Seen: 01/04/24 Time Patient Seen: 07:33 Interval history: Status post right reverse total shoulder Arthroplasty December 30, 2023. Patient is very drowsy this morning. Patient has difficult time waking obtains her questions. Exam Vital Signs (past 8 hours): - 01/03/24 23:50 01/04/24 05:00 Pulse Rate 78 70 Respiratory Rate 17 Blood Pressure 165/72 H 130/61 Pulse Oximetry 96 Oxygen Flow Rate 0 Fraction of Inspired Oxygen 21 SaO2/FiO2 Ratio 447 Oxygen Delivery Method Room Air Oxygen Flow Rate 0 Narrative Exam Narrative: 78-year-old male resting in bed in no apparent distress. Patient wakes up and then falls back to sleep while trying to ask him questions today. His right shoulder dressing is clean, dry and intact. Motor functions intact distal right upper extremity. Sensation grossly intact to light touch right upper extremity. Good capillary refill. Const General: comfortable Nutritional Appearance: average body habitus Orientation: alert Resp Effort & Inspection: normal respiratory effort and able to speak in complete sentences Objective Labs 01/02/24 11:00 01/02/24 11:00 [facility] Medical History Sacral decubitus ulcer Aspiration, chronic pulmonary Wound of left buttock (08/2023) Accident Narcotic dependence Ventricular bigeminy Anginal pain Asthma Ischemic cardiomyopathy History of aortic dissection (~08/2007) COPD (chronic obstructive pulmonary disease) Chronic obstructive pulmonary disease (10/23/16) Hypertension Atrial fibrillation Coronary artery disease Achalasia Cervical spinal stenosis Neck pain, chronic Surgical History History of total replacement of left shoulder joint (05/25/19) History of lumbar spinal fusion (02/04/22) History of ankle surgery (10/2020) History of arthroplasty of left knee (05/25/19) History of incision and drainage (~2016) S/P cervical spinal fusion History of arthroplasty of right knee History of esophageal surgery Hx of hernia repair Hx of cholecystectomy Hx of sinus surgery History of surgery History of bilateral total hip arthroplasty S/P lumbar fusion History of cardiac cath (~03/2014) S/P CABG x 3 (~08/2007) History of prior ablation treatment (~03/2017) H/O arthroscopic knee surgery (11/15/17) Family History Mother Stroke Father Hypertension Social History household members: spouse Smoking Status: Former smoker alcohol intake: current substance use type: does not use Assessment & Plan Post-op Postoperative Procedures: Procedures Operation Date: 12/30/23 15:15 Actual Procedure Side Surgeon p Total Shoulder Arthroplasty - Reverse with biceps tenodesis Right Miguelangel Webb MD Postoperative day: 5 Postoperative status narrative: Stable Postoperative plan narrative: Sling to remain on for 6 weeks. No external rotation past neutral for 6 weeks. Okay for sling to come off for shower. Keep dressing clean and dry. Follow up outpatient orthopedic clinic in 2 weeks Multimodal pain management, use minimal amount of narcotics due to sedation Sacral ulcer, wound care Aspirin 81 mg b.i.d. for DVT prophylaxis PT/OT Appreciate hospitalist following patient with difficult past medical history Disposition, patient will need assisted facility placement once stable per hospitalist. Quality VTE Deep Vein Thrombosis/Pulmonary Embolism Present on Admission: No
[2024-01-04] MEDS: ASPIRIN EC 81 MG TABLET PO ×2 (08:28→20:02)
[2024-01-04] MEDS: polyethylene glycoL 3350 17 GM POWD.PACK PO (08:28)
[2024-01-04] MEDS: AMLODIPINE 5 MG TABLET 2.5 MG PO (08:28)
[2024-01-04] MEDS: lisinopriL 10 MG TABLET 40 MG PO ×2 (08:29→20:02)
[2024-01-04] MEDS: LORATADINE 10 MG TABLET PO (08:29)
[2024-01-04] MEDS: MULTIVITAMIN 1 TABLET 1 TAB PO (08:29)
[2024-01-04] MEDS: DOCUSATE 100 MG CAPSULE PO ×2 (08:29→20:02)
[2024-01-04] MEDS: FUROSEMIDE 40 MG TABLET PO (08:29)
[2024-01-04] MEDS: PANTOPRAZOLE DR 20 MG TABLET PO ×2 (08:29→20:02)
[2024-01-04] MEDS: MONTELUKAST 10 MG TABLET PO (08:29)
[2024-01-04] MEDS: SODIUM CHLORIDE 0.9% FLUSH 10 ML IV ×2 (08:30→21:06)
[2024-01-04] MEDS: OXYCODONE IR 5 MG TABLET 10 MG PO ×3 (10:28→20:04)
--- NOTE | 2024-01-04 10:30 | PT.IPTN ---
Current Diagnoses Pressure ulcer of sacral region, unspecified stage (12/30/23) Other specific arthropathies, not elsewhere classified, right shoulder (12/30/23) Presence of unspecified artificial shoulder joint (12/30/23) Surgery Performed Operation Date: 12/30/23 15:15 Actual Procedures p Total Shoulder Arthroplasty - Reverse with biceps tenodesis(Right) - Miguelangel Webb MD Physical Therapy Treatment Note M2 PT-IP Current Condition Start: 12/31/23 13:39 Freq: NEEDED Status: Active Protocol: Document 12/31/23 10:55 AB (Rec: 12/31/23 13:51 AB [id number]) Physical Therapy Current Condition Current Condition Evaluation Date 12/31/23 Treatment Diagnosis s/p TSA reverse; difficulty in walking M3 PT-IP Subjective Start: 12/31/23 13:39 Freq: NEEDED Status: Active Protocol: Document 01/04/24 10:30 AB (Rec: 01/04/24 12:51 AB [id number]) Subjective Physical Therapy Visit Type Type Treatment Note Visit Start Time 10:30 Visit Stop Time 10:50 Number of RETAIL TEAM LEADER Visits 0 Physical Therapy Visit Comments Patient Comments agreeable to do PT Therapy Pain Assessment Pain When Pain Assessed At Rest Pain Present Pain Present Pain Reported Location Right Shoulder Scale Used pain scale not stated Pain Management Techniques Apply Cold,Modification of Treatment,Re-positioning, Timing of Activity with Medications M4 PT-IP Mobility and Gait Start: 12/31/23 13:39 Freq: NEEDED Status: Active Protocol: Document 01/04/24 10:30 AB (Rec: 01/04/24 12:51 AB [id number]) PT-Transfer Assessment Sit to and From Stand Sit to and from Stand Contact Guard Assistance, Minimal Assistance,1 Person Assistance Equipment Transfer Assistive Device Gait Belt,Straight Cane Orthotic/Prosthetic Devices or Brace: Yes Comments Mobility Comments pt sitting on EOB and agreed to do PT. nurse stated that sling needs to be readjusted. assisted pt with sling management. pt completed elbow/hand/wrist exercises in sitting x 10 reps. Sling donned and adjusted for pt. pt completed sit to stand from EOB CGA to min A and cues for safety. pt can be impulsive. pt ambulated in room using SPC ~ 20 ft CGA. pt sat back on EOB. refused further activities. call light and table placed next to pt. pt prefers to sit on EOB. Gait Assessment Gait Gait Assistance Required: Contact Guard Assist,1 Person Assist Distance (Feet) 20 Able to Maintain Weight Bearing Status Yes During Gait Assistive Devices Assistive Device Gait Belt,Straight Cane Orthotic/Prosthetic Devices or Brace: Yes Gait Deviations General Gait Pattern Ataxic,Decreased Stride Length ,Decreased Feet Clearance Factors Limiting Gait Function Factors Limiting Gait Function Decreased Activity Tolerance, Decreased Strength,Difficulty Following Directions,Limited Range of Motion,Pain,Poor Balance,Poor Safety Awareness M5 PT-IP Objective Assessments Start: 12/31/23 13:39 Freq: NEEDED Status: Active Protocol: Document 12/31/23 10:55 AB (Rec: 12/31/23 13:51 AB [id number]) Orientation Orientation/Cognition Level of Alertness Alert Orientation Place,Situation Language Function Ability Hard of Hearing Safety Awareness Decreased Safety Awareness Memory Description Short Term Impaired Gross Range of Motion Lower Extremity ROM Assessment Within Functional Limits Strength Upper Extremity Strength Assessment Within Functional Limits Muscle Tone Muscle Tone WNL Yes M6 PT-IP Treatment Start: 12/31/23 13:39 Freq: NEEDED Status: Active Protocol: Document 01/04/24 10:30 AB (Rec: 01/04/24 12:51 AB [id number]) Physical Therapy Treatment Exercises Exercises Elbow Flexion/Extension,Wrist ROM,Hand ROM Education Education Provided Precautions,Safety M7 PT-IP Assessment and Plan Start: 12/31/23 13:39 Freq: NEEDED Status: Active Protocol: Document 01/04/24 10:30 AB (Rec: 01/04/24 12:51 AB [id number]) PT Summary Assessment and Plan Potential Rehabilitation Potential Fair Summary Impairments Pain,ROM,Strength,Balance, Coordination,Sensation,Tone, Cognition,Bed Mobility, Transfers,Gait,Activity Tolerance Progress Towards Goals Slow Progress due to Medical Issues,Slow Progress due to Activity Tolerance,Slow Progress - Other Assessment Summary pt requiring CGA to min A with sit to stand and CGA with ambulation using SPC but only ambulated ~ 20 ft. pt with decrease safety awareness and will require 24/ assist. pt stated that spouse will not be able to assist him. pt will benefit from SNF rehab. will continue to assess progress. Goals Transfer Goal Standby Assistance,Cane Gait Goal Standby Assistance,Cane Other Goals improve transfers and ambulation using SPC ~ 150 ft mod I Days to Meet Goals 10 Frequency of Treatment Frequency Of Treatment Once a Day Treatment Plan Physical Therapy Treatment Plan Bed Mobility Training,Transfer Training,Gait Training, Therapeutic Exercise,Balance Retraining,Post Op Education, Discharge Planning,Hot or Cold Pack,Neuromuscular Re-ed, Coordination Retraining,Manual Therapy Precautions Shoulder Precautions Sling,PROM,Internal Rotation to Body,No External Rotation, No Abduction,Forward Flexion to 90 degrees,Pendulums Weight Bearing Status Weight Bearing Status Non-Weight Bearing Allowed Weight Bearing Amount (enter % RUE NWB or #) (%) Recommendations To Nursing Amount of Assist Needed 1 Person Assist Discharge Recommendations PT Discharge Recommendations SNF Rehab Transportation Needs at Discharge Wheelchair/Cabulance
--- NOTE | 2024-01-04 13:20 | OT.IP.TRT ---
Current Diagnoses Pressure ulcer of sacral region, unspecified stage (12/30/23) Other specific arthropathies, not elsewhere classified, right shoulder (12/30/23) Presence of unspecified artificial shoulder joint (12/30/23) Surgery Performed Operation Date: 12/30/23 15:15 Actual Procedures p Total Shoulder Arthroplasty - Reverse with biceps tenodesis(Right) - Miguelangel Webb MD Occupational Therapy Treatment Note M2 OT-IP Current Condition Start: 12/31/23 14:02 Freq: Status: Active Protocol: Document 12/31/23 14:02 [facility] (Rec: 12/31/23 14:24 [facility] [id number]) Occupational Therapy Current Condition Current Condition Evaluation Date 12/31/23 Treatment Diagnosis S/P R TSA Diagnosis Onset Date 12/30/23 Post Operative Precautions Shoulder Precautions Sling Other Precautions NO ER past neutral Weight Bearing Status Weight Bearing Status Non-Weight Bearing M3 OT- IP Subjective and Pain Start: 12/31/23 14:02 Freq: Status: Active Protocol: Document 01/04/24 13:23 [facility] (Rec: 01/04/24 13:30 [facility] [id number]) OT- Subjective Occupational Therapy Visit Type Type Treatment Note Visit Start Time 13:12 Visit Stop Time 13:22 Occupational Therapy Visit Comments Patient Comments Pt sitting on the edge of the bed and sling off. Patient/Caregiver Goals To get better. OT Pain Assessment Pain When Pain Assessed At Rest Pain Present Pain Present Pain Reported M4 OT- IP ADL's Start: 12/31/23 14:02 Freq: Status: Active Protocol: Document 01/04/24 13:23 [facility] (Rec: 01/04/24 13:30 [facility] [id number]) OT [id number] Comments OT Self-Feeding Comments Pt will need set-up. OT ADL-Grooming Comments OT Grooming Comments Not performed. OT ADL-Oral Care Comments Oral Care Comments Not performed. OT ADL-Dressing General Eval Upper Body Dressing Ability Total Assistance Comments OT Dressing Comments Pt today not able to assist for sling management needs and needing MAXA to follow commands and help get the sling on correctly. OT ADL-Toileting Comments OT Toileting Comments Not performed. OT ADL-Bathing Comments OT Bathing Comments Pt will benefit from use of shower chair while showering. M5 OT- IP IADL's Start: 12/31/23 14:02 Freq: Status: Active Protocol: Document 12/31/23 14:02 [facility] (Rec: 12/31/23 14:24 [facility] [id number]) OT-Instrumental Activities of Daily Living Home Safety Awareness Home Safety Comments Pt very insistent on his care. M6 OT- IP Functional Cognition Start: 12/31/23 14:02 Freq: Status: Active Protocol: Document 01/04/24 13:23 [facility] (Rec: 01/04/24 13:30 [facility] [id number]) Cognitive Factors Limiting Selfcare Function Cognitive Ability Level of Alertness Alert,Confusional State Patient Orientation Name Attention Span Ability Capable of Focused Attention, Unable to Sustain Attention Ability to Follow Commands Able to Follow One Step Commands with Increased Time, Able to Follow One Step Commands with Repetition Memory Description Short Term Impaired Cognitive Comments Cognitive Assessment Comments Pt more confused today and having pulled off his sling and needing to assist and explain to pt why the sling was needed. Pt needing MAX vc for safety awareness as pt is very insistent on his care today. M7 OT- IP Mobility and Balance Start: 12/31/23 14:02 Freq: Status: Active Protocol: Document 01/04/24 13:23 [facility] (Rec: 01/04/24 13:30 [facility] [id number]) OT-Transfer Assessment Sit to and From Stand Sit to and from Stand Minimal Assistance Comments Mobility Comments Pt able to scoot up the bed on his own and GERARDO to stand with SPC and assist. OT- Balance Assessment Sitting Balance and Reactions Static Sitting Balance Ability Good Dynamic Sitting Balance Ability Fair Standing Balance and Reactions Static Standing Balance Ability Fair M8 OT- IP Objective Assessments Start: 12/31/23 14:02 Freq: Status: Active Protocol: Document 12/31/23 14:02 [facility] (Rec: 12/31/23 14:24 [facility] [id number]) OT Gross Range of Motion Upper Extremity Range of Motion Assessment Bilaterally Impaired OT Strength Upper Extremity Strength Assessment Right Impaired OT- Coordination Assessment Comments Coordination Comments Pt able to open and close his right hand. M9 OT- IP Assessment and Plan Start: 12/31/23 14:02 Freq: Status: Active Protocol: Document 01/04/24 13:23 [facility] (Rec: 01/04/24 13:30 [facility] [id number]) OT Summary Assessment and Plan Potential Rehabilitation Potential Fair Analytic Complexity at Evaluation Low Summary OT Impairments Pain,Range of Motion,Strength, Balance,Functional Cognition, Functional Mobility,Dressing, Toileting,Bathing,Toilet Transfers,Shower Transfers, Activity Tolerance Progress Towards Goals Slow Progress due to Medical Issues,Slow Progress due to Cognition Assessment Summary Pt more confused today and does not remember taking off his sling when OT came in to the room. Pt needing MAX A and vc to help get the sling back on. Pt will benefit from 24/ 7 assist and home health versus skilled rehab at this time. Goals Grooming Goal Standby Assistance Dressing Goal Minimal Assistance Toileting Goal Minimal Assistance Bathing Goal Minimal Assistance Toilet Transfer Goal Standby Assistance Shower Transfer Goal Contact Guard Assistance Days to Meet Goals 15 Frequency of Treatment Frequency Of Treatment Once a Day Treatment Plan OT Treatment Plan ADL Training,Functional Mobility,Patient/Family Education,Discharge Planning Discharge Recommendations OT Discharge Recommendations Home with 24/7 Assist Available,Home Health,SNF Rehab Transportation Needs at Discharge Private Vehicle,Wheelchair/ Cabulance
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
--- NOTE | 2024-01-04 15:10 | P.PN_ITS ---
Subjective Subjective Date Patient Seen: 01/04/24 Interval history: Continues to improve, no complaints. Accepted to SNF but for tomorrow. Exam Vital Signs (past 8 hours): - 01/04/24 08:29 01/04/24 14:13 Temperature 97.1 F L Pulse Rate 70 90 Respiratory Rate 22 Blood Pressure 130/61 167/76 H Pulse Oximetry 99 Oxygen Flow Rate 0 Fraction of Inspired Oxygen 21 SaO2/FiO2 Ratio 447 Oxygen Delivery Method Room Air Oxygen Flow Rate 0 Narrative Exam Narrative: NAD, alert and oriented to person and place. Fluent speech. Extremities are free of edema. Right shoulder slinged.Wound dressed and looks good. Objective Labs 01/02/24 11:00 01/02/24 11:00 [facility] Medical History Sacral decubitus ulcer Aspiration, chronic pulmonary Wound of left buttock (08/2023) Accident Narcotic dependence Ventricular bigeminy Anginal pain Asthma Ischemic cardiomyopathy History of aortic dissection (~08/2007) COPD (chronic obstructive pulmonary disease) Chronic obstructive pulmonary disease (10/23/16) Hypertension Atrial fibrillation Coronary artery disease Achalasia Cervical spinal stenosis Neck pain, chronic Surgical History History of total replacement of left shoulder joint (05/25/19) History of lumbar spinal fusion (02/04/22) History of ankle surgery (10/2020) History of arthroplasty of left knee (05/25/19) History of incision and drainage (~2016) S/P cervical spinal fusion History of arthroplasty of right knee History of esophageal surgery Hx of hernia repair Hx of cholecystectomy Hx of sinus surgery History of surgery History of bilateral total hip arthroplasty S/P lumbar fusion History of cardiac cath (~03/2014) S/P CABG x 3 (~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 Episode of decreased level consciousness and see improved with Narcan, new and improved. 2. Suspect toxic Encephalopathy, new and improving. 3. Insomnia, new and active. 4. Postoperative right shoulder and active. 5. Atrial fibrillation, present on admission and stable. 6. CAD, present on admission and stable. 7. COPD, present on admission and stable. 8. Ventricular arrhythmia, present on admission and stable. 9. Hypertension, present on admission and stable. He is improved overall. -Stopped librium, unlikely alcohol withdrawal. -continue oxycodone 10 mg as needed for pain -and restart Seroquel HS for sleep. Code: DNR, surrogate is patient's spouse DVT: per primary Patient is stable for SNF, no ongoing issues requiring medicine consultation at this time, will sign off. Recommend current medications at discharge. Plan for SNF tomorrow. Quality VTE Deep Vein Thrombosis/Pulmonary Embolism Present on Admission: No
--- NOTE | 2024-01-04 16:04 | PM.CN ---
History of Present Illness Consult details Date Patient Seen: 01/04/24 Time Patient Seen: 16:00 Chief complaint: wound consult Reason for consult: decubitus ulcer Requesting provider: Rey Hampton Narrative: 78-year-old male with past medical history to include recent R shoulder arthroplasty, AFib, hypertension, heart bypass, COPD, CAD, was requested by internal med for wound care consult for sacral decubitus ulcer. Patient states he has had this sacral ulcer for approximately 9 months. He has been seen by wound care center in [place]. More recently he has been applying gentamicin and lidocaine to the wound. He has not had any recent follow up wound care. He reports pain both to shoulder and ulcer, currently under pain control in the hospital. He is pending placement at a skilled nurse nursing facility for continued care. He notes that he does have a cushion for his wheelchair but does not like using it. He is ambulatory but stays fairly sedentary and confined to his wheelchair. Meds Home Medications and Allergies Home Medications Medication Instructions Recorded Confirmed Type multivitamin (Multiple Vitamins 1 tab PO DAILY ##0 12/21/16 12/20/23 History tablet) fluticasone propionate 50 1 spray intranasal DAILY PRN 11/03/17 12/30/23 History mcg/actuation nasal Allergy Symptoms ##0 spray,suspension levalbuterol tartrate 45 1 puff inhalation Q4-6H PRN 06/23/18 12/30/23 Rx mcg/actuation aerosol inhaler shortness of breath or wheezing (Xopenex HFA) #15 grams cetirizine 10 mg capsule (Zyrtec) 10 mg PO DAILY 05/23/19 12/20/23 History glipizide 2.5 mg tablet, extended 2.5 mg PO DAILY 10/09/21 12/30/23 History release 24 hr (Glucotrol XL) meclizine 25 mg tablet 25 mg PO QID PRN vertigo #30 tabs 10/10/21 12/20/23 Rx lisinopril 10 mg tablet 40 mg PO BID 12/09/21 12/30/23 History acetaminophen 300 mg-codeine 30 mg 2 tab PO Q4H PRN Pain (Scale Score 02/04/22 12/20/23 History tablet 4-6) furosemide 40 mg tablet 40 mg PO DAILY 02/04/22 12/30/23 History metoprolol succinate 100 mg 100 mg PO BEDTIME 02/04/22 12/30/23 History tablet,extended release 24 hr montelukast 10 mg tablet 10 mg PO DAILY 02/04/22 12/30/23 History amlodipine 2.5 mg tablet 2.5 mg PO QAM 12/20/23 12/30/23 History amlodipine 5 mg tablet 5 mg PO QPM 12/20/23 12/30/23 History omeprazole 20 mg tablet,delayed 20 mg PO BID 12/20/23 12/30/23 History release trazodone 100 mg tablet 200 - 400 tab PO BEDTIME 12/20/23 12/30/23 History Allergies Allergy/AdvReac Type Severity Reaction Status Date / Time diazepam [From Valium] Allergy Severe Confusion Verified 09/23/23 13:23 gabapentin Allergy Severe Hallucinati Verified 09/23/23 13:25 ng hydromorphone [From Dilaudid] Allergy Severe Hallucinating, Verified 09/23/23 13:23 He gets out of his mind morphine Allergy Severe Hallucinating, Verified 09/23/23 13:23 He gets out of his mind celecoxib [CELECOXIB] Allergy Mild SWELLING Verified 09/23/23 13:23 latex [LATEX] Allergy Mild RASH Verified 09/23/23 13:23 W/EXTENDED EXPOSURE Sulfa (Sulfonamide Allergy Mild RASH Verified 09/23/23 13:23 Antibiotics) [SULFA (SULFONAMIDE ANTIBIOTICS)] fentanyl AdvReac Severe Confusion Verified 09/23/23 13:23 varenicline [VARENICLINE] AdvReac Severe Paranoia Verified 09/23/23 13:23 buprenorphine [BUPRENORPHINE] AdvReac Mild NAUSEA, Verified 09/23/23 13:23 DIZZINESS hyoscyamine [HYOSCYAMINE] AdvReac Mild LEG Verified 09/23/23 13:23 JERKING, ANXIETY, NAUSEA W/I MINUTES [id number] Reductase AdvReac Mild WEAK Verified 09/23/23 13:23 Inhibitor MUSCLES [[id number] REDUCTASE INHIBITOR] Exam Vital Signs (past 8 hours): - 01/04/24 08:29 01/04/24 14:13 Temperature 97.1 F L Pulse Rate 70 90 Respiratory Rate 22 Blood Pressure 130/61 167/76 H Pulse Oximetry 99 Oxygen Flow Rate 0 Fraction of Inspired Oxygen 21 SaO2/FiO2 Ratio 447 Oxygen Delivery Method Room Air Oxygen Flow Rate 0 Narrative Exam Narrative: Left intergluteal cleft with approx 4.5 x 3.5 x 0.2 cm ulceration stage 2 No drainage No surrounding erythema Objective Labs 01/02/24 11:00 01/02/24 11:00 [facility] Medical History Sacral decubitus ulcer Aspiration, chronic pulmonary Wound of left buttock (08/2023) Accident Narcotic dependence Ventricular bigeminy Anginal pain Asthma Ischemic cardiomyopathy History of aortic dissection (~08/2007) COPD (chronic obstructive pulmonary disease) Chronic obstructive pulmonary disease (10/23/16) Hypertension Atrial fibrillation Coronary artery disease Achalasia Cervical spinal stenosis Neck pain, chronic Surgical History History of total replacement of left shoulder joint (05/25/19) History of lumbar spinal fusion (02/04/22) History of ankle surgery (10/2020) History of arthroplasty of left knee (05/25/19) History of incision and drainage (~2016) S/P cervical spinal fusion History of arthroplasty of right knee History of esophageal surgery Hx of hernia repair Hx of cholecystectomy Hx of sinus surgery History of surgery History of bilateral total hip arthroplasty S/P lumbar fusion History of cardiac cath (~03/2014) S/P CABG x 3 (~08/2007) History of prior ablation treatment (~03/2017) H/O arthroscopic knee surgery (11/15/17) Family History Mother Stroke Father Hypertension Social History household members: spouse Tobacco & Substance Use Smoking Status: Former smoker alcohol intake: current substance use type: does not use Assessment & Plan Assessment and plan (1) Sacral decubitus ulcer: Qualifiers: Pressure injury stage: stage 2 Qualified Code(s): L89.152 - Pressure ulcer of sacral region, stage 2 Status: Acute Plan Hydrofera dressing applied, covered with bordered foam Change dressing QOD, or sooner based on presence of drainage Hold lidocaine unless applied temporarily for relief Focus on off-loading, regular cushion shifting F/u with wound care in [place] for debridement
[2024-01-04] MEDS: AMLODIPINE 5 MG TABLET PO (16:41)
[2024-01-04] MEDS: SENNOSIDES 8.6 MG TABLET 17.2 MG PO (20:02)
[2024-01-04] MEDS: METOPROLOL ER 50 MG TABLET 100 MG PO (20:03)
[2024-01-04] MEDS: QUETIAPINE 25 MG TABLET PO (21:04)
[2024-01-04] MEDS: TRAZODONE 50 MG TABLET 300 MG PO (21:04)
[2024-01-04] MEDS: GENTAMICIN 0.1% CREAM 30 GM 1 APPLIC TOP (21:32)
--- NOTE | 2024-01-05 00:05 | PC.NURSE ---
Addendum entered by Dea Jain R.N. 01/05/24 06:44: Slept intermittently. Has used call light on occasion but generally gets up without calling for assistance. Intermittently hollers out but seems to do so in his sleep. Takes off sling, clothes and linens but can be redirected. Occasionally swears at staff but when confronted about behavior he states he is not swearing at staff. Allevyn dressing replaced x 1 this shift. Original Note: Patient was oriented to self, BD, age, month, day of week and place. Does ramble in his conversation and needs redirecting to topic. Breath sounds CTA with RA sat of 95%. HRR w/elevated BP of 175/78. Denied nausea. BT present and abdomen is soft. Has been voiding using toilet. Repositions himself but is requiring 1 assist and using cane for transfers/walking due to confusion and weakness. Pressure area to buttock now with allevyn dressing which is CDI; area is stage 2 and without drainage. Wound culture did come back as gram + cocci on gram stain so placed on contact isolation. SCD's not placed due to patient's impulsivity which increases his risk of falling. Aquacel dressing to right shoulder is intact with 2 small spots of drainage noted. Wearing sling at time of assessment. Complained of pain in right shoulder and was medicated with oxycodone and ice pack applied. States he has numbness in right hand/fingers which is chronic. Fingers are warm and with good cap refill; radial pulse is strong. Right UE is edematous. Fall risk score is high and bed alarm is activated.
[2024-01-05] MEDS: IBUPROFEN 600 MG TABLET PO ×3 (00:14→12:00)
[2024-01-05] MEDS: ACETAMINOPHEN 325 MG TABLET 650 MG PO ×3 (00:14→12:00)
[2024-01-05 01:25] VITALS: BP 137/64; PULSE 70; RESP 20; TEMP 36.5; O2SAT 98
[2024-01-05] MEDS: OXYCODONE IR 5 MG TABLET 10 MG PO ×2 (03:02→08:21)
[2024-01-05 03:22] VITALS: PULSE 60; RESP 26; O2SAT 98
[2024-01-05] MEDS: ALBUTEROL 2.5 MG/3 ML NEB (ADULT) INH ×2 (03:22→09:09)
[2024-01-05] MEDS: LORazepam 1 MG TABLET PO ×2 (03:27→11:59)
[2024-01-05 06:47] VITALS: BP 137/70; PULSE 70; RESP 15; TEMP 36.3; O2SAT 98
[2024-01-05 08:16] VITALS: BP 148/60; PULSE 72
[2024-01-05] MEDS: polyethylene glycoL 3350 17 GM POWD.PACK PO (08:16)
[2024-01-05] MEDS: lisinopriL 10 MG TABLET 40 MG PO (08:16)
[2024-01-05] MEDS: AMLODIPINE 5 MG TABLET 2.5 MG PO (08:19)
[2024-01-05] MEDS: MONTELUKAST 10 MG TABLET PO (08:21)
[2024-01-05] MEDS: ASPIRIN EC 81 MG TABLET PO (08:21)
[2024-01-05] MEDS: LORATADINE 10 MG TABLET PO (08:21)
[2024-01-05] MEDS: FUROSEMIDE 40 MG TABLET PO (08:21)
[2024-01-05] MEDS: MULTIVITAMIN 1 TABLET 1 TAB PO (08:21)
[2024-01-05] MEDS: DOCUSATE 100 MG CAPSULE PO (08:21)
[2024-01-05] MEDS: PANTOPRAZOLE DR 20 MG TABLET PO (08:21)
[2024-01-05] MEDS: SODIUM CHLORIDE 0.9% FLUSH 10 ML IV (08:22)
[2024-01-05 09:09] VITALS: PULSE 76; RESP 20; O2SAT 97
--- NOTE | 2024-01-05 09:28 | PM.DS.1 ---
History of Present Illness History of Present Illness Date Patient Seen: 01/05/24 Time Patient Seen: 09:28 Chief complaint: Shoulder pain Narrative: Patient states he continues to have severe shoulder pain. No fever or chills. No nausea vomiting. Discharge Providers Provider Date of admission: 12/30/23 12:23 Discharge Date: 01/05/24 Primary care physician: Romi Mcneill MD Consults: 12/30/23 13:55 Consult to Anesthesiology Routine Comment: Consulting Provider: Anesthesiologist Reason for consultation: Regional block for post operative pain control Has provider been notified: No 12/30/23 18:19 Consult to Discharge Planning Routine Comment: Wheelchair dependent, sacral decub, needs SNF Consult to Physical Therapy Evaluate & Treat Comment: Physician Instructions: Evaluate and Treat 12/31/23 07:27 Consult to Wound Care Routine Comment: Sacral decub, sees WC @ [facility] weekly Consulting Provider: [facility] 12/31/23 10:17 Consult to Occupational Therapy Evaluate & Treat Comment: Physician Instructions: Evaluate and treat 01/01/24 09:27 Consult to Dietitian, Adult Urgent Comment: Reason For Exam: Sacral decubitus ulcer Consult to Wound Care Routine Comment: Consulting Provider: [facility] 01/02/24 10:22 Consult to Hospitalist Service Routine Comment: Dr Vargas Consulting Provider: Bhupendra Vargas Reason for consultation: SOB, bradycardia Discharge provider: Rey Hampton PA-C Summary Hospital Course Discharge Diagnosis: Status post right reverse total shoulder arthroplasty December 30, 2023 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 Symptoms have been present for years, insidious onset. Patient has failed a reasonable attempt at conservative therapy. After extensive discussion in clinic, they wished to go forward with surgery. Risks and benefits were described including the risk of infection, bleeding, damage to internal structures including nerves. We also discussed the risk of failure of surgery and the need for revision surgery as well as the risk of anesthesia. The patient expressed understanding with these risks and wished to go forward with surgery. Surgeon: Miguelangel Webb Insight Leader: Laura Dickerson Anesthesia Type: General Operative Notes Findings: Findings: Osteoarthritis of the glenoid and humeral head with intact rotator cuff as noted on preoperative imaging and under direct visualization Closure Type: primary Specimen(s): none sent Prosthetic devices, grafts, tissues, transplants, or devices: Tornier implants Base plate: standard 25 mm, +3 mm offset Glenosphere: Standard 36 mm Stem: Perform 3+ Poly: +0 concentric Estimated Blood Loss (mL): 100 Blood products transfused: none Patient admitted to the hospital for right reverse total shoulder arthroplasty. Patient consented to the same. Patient underwent right reverse total shoulder arthroplasty with Dr. Webb December 30, 2023. Patient was progressing slowly due to pain control. Hospitalist was consulted on January 02, 2024 for hypoxia and AMS. Patient was also found to have a sacral decubitus ulcer which had been treated as outpatient by wound clinic. Patient given Narcan for an episode of decreased level consciousness. Patient was also started on Librium. Librium has since been discontinued. He was restarted on Seroquel HS for sleep. Patient continues to improve. *Patient is stable per hospitalist and will be discharged to [facility] facility today. Per Wound Care consult January 04, 2024: Hydrofera dressing applied, covered with bordered foam Change dressing QOD, or sooner based on presence of drainage Hold lidocaine unless applied temporarily for relief Focus on off-loading, regular cushion shifting F/u with wound care in [place] for debridement *Postop instructions for right reverse total shoulder arthroplasty. Sling to remain on for 6 weeks. No external rotation past neutral for 6 weeks. Sling may come off for showering. Keep Aquacel dressing clean and dry. Follow up outpatient orthopedic clinic in 2 weeks. Status at Discharge Cognitive/behavioral status at discharge: at baseline, confused Overall status at discharge: patient is progressing back to baseline Exam Vital Signs (past 8 hours): - 01/05/24 03:22 01/05/24 06:47 01/05/24 08:16 Temperature 97.4 F L Pulse Rate 60 70 72 Respiratory Rate 26 H 15 Blood Pressure 137/70 148/60 H Pulse Oximetry 98 98 Oxygen Delivery Method Room Air Oxygen Flow Rate 0 Fraction of Inspired Oxygen 01/05/24 09:13 Temperature Pulse Rate Respiratory Rate Blood Pressure Pulse Oximetry Oxygen Delivery Method Room Air Oxygen Flow Rate Fraction of Inspired Oxygen Fraction of Inspired Oxygen 21 SaO2/FiO2 Ratio 466 Oxygen Delivery Method Room Air Oxygen Flow Rate 0 Narrative Exam Narrative: 70-year-old male resting comfortably in bedside chair in no apparent distress. Scant drainage on the right shoulder dressing. Motor functions intact distal right upper extremity. Sensation grossly intact to light touch right upper extremity. He is good capillary refill. Const General: cooperative and comfortable Nutritional Appearance: average body habitus Orientation: alert Resp Effort & Inspection: normal respiratory effort and able to speak in complete sentences Objective Labs 01/02/24 11:00 01/02/24 11:00 [facility] Medical History Sacral decubitus ulcer Aspiration, chronic pulmonary Wound of left buttock (08/2023) Accident Narcotic dependence Ventricular bigeminy Anginal pain Asthma Ischemic cardiomyopathy History of aortic dissection (~08/2007) COPD (chronic obstructive pulmonary disease) Chronic obstructive pulmonary disease (10/23/16) Hypertension Atrial fibrillation Coronary artery disease Achalasia Cervical spinal stenosis Neck pain, chronic Surgical History History of total replacement of left shoulder joint (05/25/19) History of lumbar spinal fusion (02/04/22) History of ankle surgery (10/2020) History of arthroplasty of left knee (05/25/19) History of incision and drainage (~2016) S/P cervical spinal fusion History of arthroplasty of right knee History of esophageal surgery Hx of hernia repair Hx of cholecystectomy Hx of sinus surgery History of surgery History of bilateral total hip arthroplasty S/P lumbar fusion History of cardiac cath (~03/2014) S/P CABG x 3 (~08/2007) History of prior ablation treatment (~03/2017) H/O arthroscopic knee surgery (11/15/17) Family History Mother Stroke Father Hypertension Social History household members: spouse Smoking Status: Former smoker alcohol intake: current substance use type: does not use Discharge Assessment & Plan Assessment and Plan Assessment: Patient progressing as expected Plan of Treatment: *Sacral decubitus ulcer, stage II Hydrofera dressing applied, covered with bordered foam Change dressing QOD, or sooner based on presence of drainage Hold lidocaine unless applied temporarily for relief Focus on off-loading, regular cushion shifting F/u with wound care in [place] for debridement *Right reverse total shoulder arthroplasty Sling to remain on for 6 weeks. No external rotation past neutral for 6 weeks. Okay for the sling to come off for shower. Okay to shower over the Aquacel dressing. If any water gets underneath the dressing, remove the dressing. First postoperative visit in 2 weeks. Discharge Plan Discharge Plan Patient Disposition: SNF Transfer to: [facility] Discharge orders & Medications Prescriptions: New acetaminophen 325 mg Tablet 650 mg PO Q6H Qty: 60 0RF aspirin 81 mg Tablet,Delayed Release (Dr/Ec) 81 mg PO BID Qty: 60 0RF polyethylene glycol 3350 17 gram Powder In Packet 17 g PO DAILY Qty: 14 0RF oxycodone 5 mg Tablet 10 mg PO Q4HR PRN (Reason: moderate to severe pain) Qty: 60 0RF quetiapine 25 mg Tablet 25 mg PO BEDTIME Qty: 30 0RF gentamicin 0.1 % Cream 1 applic topical BEDTIME Qty: 30 0RF lidocaine 5 % Ointment 1 applic topical DAILY PRN (Reason: Pain, Mild (1-3)) Qty: 30 0RF Continued multivitamin [Multiple Vitamins] 1 EACH tablet 1 tab PO DAILY Qty: 0 fluticasone propionate 16 GM spray,suspension 1 spray Intranasal DAILY PRN (Reason: Allergy Symptoms) Qty: 0 glipizide [Glucotrol XL] 2.5 mg tablet extended release 24 hr 2.5 mg PO DAILY meclizine 25 mg tablet 25 mg PO QID PRN (Reason: vertigo) Qty: 30 0RF lisinopril 10 mg tablet 40 mg PO BID levalbuterol tartrate [Xopenex HFA] 45 mcg/actuation HFA aerosol inhaler 1 puff INHALATION Q4-6H PRN (Reason: shortness of breath or wheezing) Qty: 15 0RF Zyrtec 10 mg Capsule 10 mg PO DAILY furosemide 40 mg tablet 40 mg PO DAILY Patient Comments: take 1 tablet by mouth once daily metoprolol succinate 100 mg Tablet Extended Release 24 Hr 100 mg PO BEDTIME montelukast 10 mg Tablet 10 mg PO DAILY amlodipine 2.5 mg Tablet 2.5 mg PO QAM amlodipine 5 mg Tablet 5 mg PO QPM omeprazole 20 mg Tablet,Delayed Release (Dr/Ec) 20 mg PO BID trazodone 100 mg tablet 200 - 400 tab PO BEDTIME Discontinued acetaminophen-codeine 300-30 mg tablet 2 tab PO Q4H PRN (Reason: Pain (Scale Score 4-6)) Follow up/Referrals: Romi Mcneill MD [Primary Care Provider] - Miguelangel Webb MD [Physician] - (Follow up at [facility] as scheduled in 2 weeks. 01/14/2024 at 1:30 p.m. ) Diet/Activity/Treatments Diet: Diet as Tolerated Activity: Sling to remain on for 6 weeks. No external rotation past neutral for 6 weeks. Okay for the sling to come off for shower. Cold/Heat Therapy: Ice to the shoulder for additional pain control Other treatments: (1) Sacral decubitus ulcer: Qualifiers: Pressure injury stage: stage 2 Qualified Code(s): L89.152 - Pressure ulcer of sacral region, stage 2 Status: Acute Plan Hydrofera dressing applied, covered with bordered foam Change dressing QOD, or sooner based on presence of drainage Hold lidocaine unless applied temporarily for relief Focus on off-loading, regular cushion shifting F/u with wound care in [place] for debridement Skin/Wound/Dressing Care Report to your healthcare provider any signs of infection, such as:: chills, fever, night sweats, unusual drainage and unusual redness Dressing: Keep dressing intact, clean and dry until 2 week post-op appointment. No soaking the incision site in pools or tubs. No topical ointments or creams to the incision site. [facility] Rehabilitation [facility] Reason for rehabilitation: Post-operative therapy Rehab type: Physical therapy Visit Report/Discharge Packet Instructions: DI for Shoulder Replacement Stand Alone Forms: Patient Portal/API Discharge Data Primary Care Provider: Romi Mcneill Quality VTE Deep Vein Thrombosis/Pulmonary Embolism Present on Admission: No
--- NOTE | 2024-01-05 10:36 | CM.DPC ---
DCP Cont. Reviewed EMR and team rounds for status updates. Pt has been medically cleared for home d/c, [employer] will arrive here at 1:30PM to transport him to [facility]. [employer] called his and explained that she would need to pay for his transport up front, and that [facility] will reimburse them. No further DCP needs identified at this time. All d/c clinicals and PASSAR faxed to [facility].
--- NOTE | 2024-01-05 11:20 | PT.IPTN ---
Current Diagnoses Pressure ulcer of sacral region, stage 2 (12/30/23) Pressure ulcer of sacral region, unspecified stage (12/30/23) Other specific arthropathies, not elsewhere classified, right shoulder (12/30/23) Presence of unspecified artificial shoulder joint (12/30/23) Surgery Performed Operation Date: 12/30/23 15:15 Actual Procedures p Total Shoulder Arthroplasty - Reverse with biceps tenodesis(Right) - Miguelangel Webb MD Physical Therapy Treatment Note M2 PT-IP Current Condition Start: 12/31/23 13:39 Freq: NEEDED Status: Active Protocol: Document 12/31/23 10:55 AB (Rec: 12/31/23 13:51 AB [id number]) Physical Therapy Current Condition Current Condition Evaluation Date 12/31/23 Treatment Diagnosis s/p TSA reverse; difficulty in walking M3 PT-IP Subjective Start: 12/31/23 13:39 Freq: NEEDED Status: Active Protocol: Document 01/05/24 11:20 AB (Rec: 01/05/24 12:38 AB [id number]) Subjective Physical Therapy Visit Type Type Treatment Note Visit Start Time 11:20 Visit Stop Time 11:32 Number of WELDING MACHINE OPERATOR GAS Visits 0 Therapy Pain Assessment Pain When Pain Assessed During Mobility Pain Present Pain Present Pain Reported Location Right Shoulder Scale Used pain scale not stated M4 PT-IP Mobility and Gait Start: 12/31/23 13:39 Freq: NEEDED Status: Active Protocol: Document 01/05/24 11:20 AB (Rec: 01/05/24 12:38 AB [id number]) PT-Transfer Assessment Sit to and From Stand Sit to and from Stand Standby Assistance,Contact Guard Assistance Equipment Transfer Assistive Device Gait Belt,Straight Cane Orthotic/Prosthetic Devices or Brace: Yes Transfers Transfer Destination Bed,Chair Transfer Technique Stand Step Pivot Transfer Ability Level of Assist Standby Assistance Comments Mobility Comments pt sitting on the chair without his sling on. pt agreed to do PT. completed elbow/wrist/hand/finger exercises but needs encouragement. assisted with donning sling on. pt tends to move R shoulder and pt educated on precautions and safety. pt completed sit to stand from chair SBA to CGA and step transfer to EOB using SPC SBA. pt transferred back to chair SBA using SPC. pt refused further activities. call light and table placed within reach. M5 PT-IP Objective Assessments Start: 12/31/23 13:39 Freq: NEEDED Status: Active Protocol: Document 12/31/23 10:55 AB (Rec: 12/31/23 13:51 AB [id number]) Orientation Orientation/Cognition Level of Alertness Alert Orientation Place,Situation Language Function Ability Hard of Hearing Safety Awareness Decreased Safety Awareness Memory Description Short Term Impaired Gross Range of Motion Lower Extremity ROM Assessment Within Functional Limits Strength Upper Extremity Strength Assessment Within Functional Limits Muscle Tone Muscle Tone WNL Yes M6 PT-IP Treatment Start: 12/31/23 13:39 Freq: NEEDED Status: Active Protocol: Document 01/05/24 11:20 AB (Rec: 01/05/24 12:38 AB [id number]) Physical Therapy Treatment Exercises Exercises Elbow Flexion/Extension,Wrist ROM,Hand ROM Education Education Provided Precautions,Safety M7 PT-IP Assessment and Plan Start: 12/31/23 13:39 Freq: NEEDED Status: Active Protocol: Document 01/05/24 11:20 AB (Rec: 01/05/24 12:38 AB [id number]) PT Summary Assessment and Plan Potential Rehabilitation Potential Fair Summary Impairments Pain,ROM,Strength,Balance, Coordination,Sensation,Tone, Cognition,Bed Mobility, Transfers,Gait,Activity Tolerance Progress Towards Goals Slow Progress - Other Assessment Summary pt requiring SBA to CGA with transfers using SPC. pt is very impulsive and has decrease safety awareness affecting mobility. pt will require SNF rehab. Goals Transfer Goal Standby Assistance,Cane Gait Goal Standby Assistance,Cane Other Goals improve transfers and ambulation using SPC ~ 150 ft mod I Days to Meet Goals 10 Frequency of Treatment Frequency Of Treatment Once a Day Treatment Plan Physical Therapy Treatment Plan Bed Mobility Training,Transfer Training,Gait Training, Therapeutic Exercise,Balance Retraining,Post Op Education, Discharge Planning,Hot or Cold Pack,Neuromuscular Re-ed, Coordination Retraining,Manual Therapy Precautions Shoulder Precautions Sling,PROM,Internal Rotation to Body,No External Rotation, No Abduction,Forward Flexion to 90 degrees,Pendulums Weight Bearing Status Weight Bearing Status Non-Weight Bearing Allowed Weight Bearing Amount (enter % RUE NWB or #) (%) Recommendations To Nursing Amount of Assist Needed 1 Person Assist Discharge Recommendations PT Discharge Recommendations SNF Rehab Transportation Needs at Discharge Wheelchair/Cabulance
--- NOTE | 2024-01-05 11:40 | PC.NURSE ---
Addendum entered by Mary Estrada R.N. 01/05/24 13:38: Pt wheeled via wheelchair to taxi at approximately 1320. Pt SBA into tax, departed at 1332. Original Note: Day shift: Pt A&O to self, situation, and place, year, unsure of date. VSS. Pt throwing clothing and sling onto floor. Reeducated pt on importance of wearing sling for protection of surgery and for comfort. Pt SBA with cane to BR. Pt agreeable to discharge to SNF. IV discontinued per pt request. Pt ambulating in room, assisted in dressing, pt close proximity to nurse, stating, Give me a kiss. This RN declined. Pt repeated same phrase. This RN continued to decline. Pt stated, Just on the cheek. This RN educated pt on physical boundaries. Pt assisted back to chair. Chair alarm in place, call light within reach. This RN called report number, no answer at this time. Care ongoing, will continue to monitor.
== END 2024-01-05 13:32 | DRG 483 ==
PROVIDERS: Hospitalist; Physician Assistant Surgical; Admitting Provider Orthopaedic Surgery; PCP Internal Medicine; Referring Provider Orthopaedic Surgery; Visit Provider Orthopaedic Surgery
PROC: 0RRJ00Z Replacement of Right Shoulder Joint with Reverse Ball and Socket Synthetic Substitute, Open Approach (ICD-10-PCS; CPT 23472; principal; 2023-12-30 15:15)
DX: M19.011 Primary osteoarthritis, right shoulder (principal); G92.9 Unspecified toxic encephalopathy; I48.91 Unspecified atrial fibrillation; I25.10 Atherosclerotic heart disease of native coronary artery without angina pectoris; J44.9 Chronic obstructive pulmonary disease, unspecified; I49.8 Other specified cardiac arrhythmias; I10 Essential (primary) hypertension; G47.00 Insomnia, unspecified; L89.152 Pressure ulcer of sacral region, stage 2; Z86.14 Personal history of Methicillin resistant Staphylococcus aureus infection; Z66 Do not resuscitate; Z87.891 Personal history of nicotine dependence; Z99.3 Dependence on wheelchair
CPT/HCPCS: 36415; 64450; 71045; 73020; 80053; 84484; 85025; 85027; 87070; 87075; 87077; 87205; 93005; 94640; 94762; 97162; 97165; 97530; 97535; 99232; C1776; J0171; J0330; J0690; J1100; J1885; J2060; J2310; J2405; J2704; J3010; J7613

== ENCOUNTER → 2024-02-03 09:12 | Outpatient (CLI) | payer OTHER, SELFPAY ==
[2023-12-30 12:25] VITALS: BMI 27.9
== END ==
LOC: WC 09:12
PROVIDERS: PCP Internal Medicine; Referring Provider Internal Medicine; Visit Provider Surgery
DX: L89.323 Pressure ulcer of left buttock, stage 3 (principal); R60.0 Localized edema; E11.628 Type 2 diabetes mellitus with other skin complications; I25.10 Atherosclerotic heart disease of native coronary artery without angina pectoris; M62.81 Muscle weakness (generalized); I48.91 Unspecified atrial fibrillation
CPT/HCPCS: 11106; 87070; 87075; 87205; 99203; 99213

== ENCOUNTER → 2024-02-14 10:09 | Outpatient (CLI) | payer OTHER, SELFPAY ==
[2023-12-30 12:25] VITALS: BMI 27.9
== END ==
PROVIDERS: PCP Internal Medicine; Referring Provider Internal Medicine; Visit Provider Surgery
DX: L89.323 Pressure ulcer of left buttock, stage 3 (principal); R60.0 Localized edema; I25.10 Atherosclerotic heart disease of native coronary artery without angina pectoris; I48.91 Unspecified atrial fibrillation; Z91.199 Patient's noncompliance with other medical treatment and regimen due to unspecified reason
CPT/HCPCS: 11042

== ENCOUNTER → 2024-02-28 10:23 | Outpatient (CLI) | payer OTHER, SELFPAY ==
[2023-12-30 12:25] VITALS: BMI 27.9
== END ==
LOC: WC 10:24
PROVIDERS: PCP Internal Medicine; Referring Provider Internal Medicine; Visit Provider Surgery
DX: L89.323 Pressure ulcer of left buttock, stage 3 (principal); R60.0 Localized edema; I25.10 Atherosclerotic heart disease of native coronary artery without angina pectoris; M62.81 Muscle weakness (generalized); E11.628 Type 2 diabetes mellitus with other skin complications; Z91.199 Patient's noncompliance with other medical treatment and regimen due to unspecified reason
CPT/HCPCS: 11042; 11045; 99213

== ENCOUNTER → 2024-03-13 10:03 | Outpatient (CLI) | payer OTHER, SELFPAY ==
[2023-12-30 12:25] VITALS: BMI 27.9
== END ==
LOC: WC 10:04
PROVIDERS: PCP Internal Medicine; Referring Provider Internal Medicine; Visit Provider Surgery
DX: L89.323 Pressure ulcer of left buttock, stage 3 (principal); R60.0 Localized edema; E11.628 Type 2 diabetes mellitus with other skin complications; I25.10 Atherosclerotic heart disease of native coronary artery without angina pectoris; Z91.199 Patient's noncompliance with other medical treatment and regimen due to unspecified reason
CPT/HCPCS: 11042

== ENCOUNTER → 2024-03-27 10:55 | Outpatient (CLI) | payer OTHER, SELFPAY ==
[2023-12-30 12:25] VITALS: BMI 27.9
== END ==
LOC: WC 10:56
PROVIDERS: PCP Internal Medicine; Referring Provider Internal Medicine; Visit Provider Surgery
DX: L89.323 Pressure ulcer of left buttock, stage 3 (principal); E11.628 Type 2 diabetes mellitus with other skin complications; L53.8 Other specified erythematous conditions; R60.0 Localized edema
CPT/HCPCS: 11042

== ENCOUNTER → 2024-04-03 11:00 | Outpatient (CLI) | payer OTHER, SELFPAY ==
[2023-12-30 12:25] VITALS: BMI 27.9
== END ==
PROVIDERS: PCP Internal Medicine; Referring Provider Internal Medicine; Visit Provider Surgery
DX: L89.323 Pressure ulcer of left buttock, stage 3 (principal); R60.0 Localized edema; L53.9 Erythematous condition, unspecified; Z91.199 Patient's noncompliance with other medical treatment and regimen due to unspecified reason
CPT/HCPCS: 11042

== ENCOUNTER → 2024-09-28 11:31 | Outpatient (CLI) | payer OTHER, SELFPAY ==
[2023-12-30 12:25] VITALS: BMI 27.9
== END ==
LOC: PHYS 11:33
PROVIDERS: Family Provider Internal Medicine; Referring Provider Orthopaedic Surgery; Visit Provider Orthopaedic Surgery
DX: G56.01 Carpal tunnel syndrome, right upper limb (principal)
CPT/HCPCS: 95886; 95910